=== PATIENT | male | born 1940 | race Caucasian/White ===

== ENCOUNTER 2017-03-01 12:37 | Emergency (ER) | payer BC, OTHER ==
[~2017-03-01] VITALS: Ht 198.1 cm; Wt 140.0 kg
[2017-03-01 12:45] VITALS: TEMP 36.3; Ht 198.1 cm; Wt 140.0 kg
--- NOTE | 2017-03-01 14:21 | EMERGENCY ROOM VISIT NOTE ---
History Report prepared by Dana: Chiquita Sy Under the Supervision of: Dr. Denisse Fox D.O. First contact with patient: 13:39 Chief Complaint: EDEMA TO EXTREMITY Stated Complaint: SWELLING IN FEET,CHEST PAIN,COUGH History of Present Illness The patient is a 76 year old male who presents to the Emergency Room with complaints of intermittent chest pain beginning a couple days ago. The patient states that his chest pain is relieved with belching. He also reports swelling to both his legs beginning about four days ago. The patient is on a water pill and started taking two pills a day two days ago with no relief. He denies any other recent changes to his medications. The patient is unsure of why he has swelling in his legs. He denies any heart or kidney problems. He notes a cough and shortness of breath when he lays flat. The patient also reports joint pain. The patient has a history of gout. His reports his joint pain feels similarly to when he had gout. He is a former smoker and quit about 20 years ago. Pt denies headache, change in vision, fevers, nausea, vomiting, diarrhea, pain with urination, and melena. Source of History: patient Onset: a couple days ago Position: chest Timing: constant Modifying Factors (Relieving): other (belching) Associated Symptoms: + cough, + SOB, No fevers, No headache, No chest pain, No nausea, No vomiting Review of Systems See HPI for pertinent positives & negatives. A total of 10 systems reviewed and were otherwise negative. Past Medical & Surgical Medical Problems: (1) Gout Family History Patient reports no known family medical history. Social History Smoking Status: Former Smoker Marital Status: Housing Status: lives with significant other Current/Historical Medications Scheduled Cholecalciferol (Vitamin D), 1,000 UNITS PO DAILY Cyanocobalamin (Vitamin B-12), 1,000 MCG PO DAILY Furosemide (Lasix), 20 MG PO DAILY Ibuprofen (Motrin), 800 MG PO DAILY Levothyroxine Sodium (Synthroid), 150 MCG PO DAILY Lisinopril (Zestril), 40 MG PO DAILY Potassium Chloride (Micro-K Ext Rel), 10 MEQ PO DAILY Prednisone (Prednisone Tab), 2 TAB PO DAILY Simvastatin (Zocor), 20 MG PO DAILY Allergies Coded Allergies: No Known Allergies (Unverified , 03/01/17) Physical Exam Vital Signs Date Time Temp Pulse Resp B/P (MAP) Pulse Ox O2 Delivery O2 Flow Rate FiO2 03/01/17 18:54 78 18 180/78 95 Room Air 03/01/17 14:22 78 16 176/100 93 03/01/17 14:07 82 19 94 03/01/17 13:52 78 27 95 03/01/17 13:47 81 03/01/17 13:40 178/105 03/01/17 12:45 36.3 116 14 163/102 98 Room Air Physical Exam GENERAL: alert, well appearing, well nourished, no distress, non-toxic EYE EXAM: normal conjunctiva, PERRL and EOM's grossly intact OROPHARYNX: no exudate, no erythema, lips, buccal mucosa, and tongue normal and mucous membranes are moist NECK: supple, no nuchal rigidity, no adenopathy, non-tender LUNGS: Diminished breath sounds bilaterally, no wheezing, no rhonchi, no rales. HEART: no murmurs, S1 normal and S2 normal ABDOMEN: abdomen soft, non-tender, normo-active bowel sounds, no masses, no rebound or guarding. BACK: Back is symmetrical on inspection and there is no deformity, no midline tenderness, no CVA tenderness. SKIN: no rashes and no bruising UPPER EXTREMITIES: upper extremities are grossly normal. LOWER EXTREMITIES: 2 + edema NEURO EXAM: Normal sensorium, cranial nerves II-XII grossly intact, normal speech, no gross weakness of arms, no gross weakness of legs. Medical Decision & Procedures ER Provider Diagnostic Interpretation: Radiology results have been interpreted by the radiologist and reviewed by me. CHEST 2 VIEWS ROUTINE FINDINGS: Minimal bibasilar atelectatic change. Heart top limits of normal in size. Lungs otherwise are clear. Diaphragms smooth. IMPRESSION: Minimal bibasilar atelectasis. Otherwise negative study. The above report was generated using voice recognition software. It may contain grammatical, syntax or spelling errors. Electronically signed by: Heber Pina M.D. (CHEST FOR PE) ANGIO WITH FINDINGS: Quality Control Systems Manager topogram: Low lung volumes. Pulmonary vasculature: The study is suboptimal secondary to the timing of the contrast bolus, patient body habitus, and respiratory motion artifact limiting evaluation of subsegmental pulmonary arteries. Allowing for this, no filling defect to suggest pulmonary embolus in the main, lobar, or segmental pulmonary arteries. Main pulmonary artery is top normal in size. No flattening of the interventricular septum. No intracardiac intracardiac filling defect. No reflux of contrast into the hepatic veins. Remaining chest: On soft tissue windows, thyroid not visualized. No axillary, supraclavicular, hilar, or mediastinal lymphadenopathy. Atherosclerosis of the aorta. Left atrial enlargement suggested. Aortic valve and coronary artery calcification. No pericardial or pleural effusion. Focal indeterminate 2.3 cm hypodensity noted in the liver (series 4 image 1) additional 1.2 cm hypodensity noted in segment 7 of the liver (series 4 image 32). On lung windows, the lung bases were incompletely included within the [id number]. Allowing for this, minimal dependent changes likely atelectasis. Volume loss and consolidation in the right middle lobe and lingula, consistent with extensive atelectasis. No other focal infiltrate or nodule. Central airways patent. On bone windows, degenerative changes of the thoracic spine. Sclerotic lesion in one of the lower thoracic vertebral bodies possibly a bone island. IMPRESSION: 1. Allowing for suboptimal image quality, no evidence of pulmonary embolus. No acute intrathoracic pathology. 2. Two indeterminate liver lesions. If there is a history of malignancy, underlying hepatocellular risk factors, or clinical concern, further evaluation with dedicated liver CT or MR (Gadavist) could be obtained. Electronically signed by: Marc Watt M.D. VENOUS DOPPLER LWR EXT BILA FINDINGS: Right: Common femoral vein: Patent. Greater saphenous vein: Patent. Deep femoral vein: Patent. Femoral vein: Patent. Popliteal vein: Patent. Calf veins: Patent. Left: Common femoral vein: Patent. Greater saphenous vein: Patent. Deep femoral vein: Patent. Femoral vein: Patent. Popliteal vein: Patent. Calf veins: Patent. Other: None. IMPRESSION: No evidence of deep venous thrombosis. Electronically signed by: Marc Watt M.D. Laboratory Results 03/01/17 14:00 Red Blood Count 4.61, Mean Corpuscular Volume 88.9, Mean Corpuscular Hemoglobin 30.4, Mean Corpuscular Hemoglobin Concent 34.1, Mean Platelet Volume 9.0, Neutrophils (%) (Auto) 74.7, Lymphocytes (%) (Auto) 13.4, Monocytes (%) (Auto) 10.5, Eosinophils (%) (Auto) 0.9, Basophils (%) (Auto) 0.3, Neutrophils # (Auto ) 7.87, Lymphocytes # (Auto) 1.41, Monocytes # (Auto) 1.11, Eosinophils # (Auto ) 0.09, Basophils # (Auto) 0.03 03/01/17 14:00 Test 03/01/17 14:00 03/01/17 15:17 03/01/17 16:25 White Blood Count 10.53 K/uL (4.8-10.8) Red Blood Count 4.61 M/uL (4.7-6.1) Hemoglobin 14.0 g/dL (14.0-18.0) Hematocrit 41.0 % (42-52) Mean Corpuscular Volume 88.9 fL (80-100) Mean Corpuscular Hemoglobin 30.4 pg (25-34) Mean Corpuscular Hemoglobin Concent 34.1 g/dl (32-36) Platelet Count 365 K/uL (130-400) Mean Platelet Volume 9.0 fL (7.4-10.4) Neutrophils (%) (Auto) 74.7 % Lymphocytes (%) (Auto) 13.4 % Monocytes (%) (Auto) 10.5 % Eosinophils (%) (Auto) 0.9 % Basophils (%) (Auto) 0.3 % Neutrophils # (Auto) 7.87 K/uL (1.4-6.5) Lymphocytes # (Auto) 1.41 K/uL (1.2-3.4) Monocytes # (Auto) 1.11 K/uL (0.11-0.59) Eosinophils # (Auto) 0.09 K/uL (0-0.5) Basophils # (Auto) 0.03 K/uL (0-0.2) RDW Standard Deviation 43.7 fL (36.4-46.3) RDW Coefficient of Variation 13.3 % (11.5-14.5) Immature Granulocyte % (Auto) 0.2 % Immature Granulocyte # (Auto) 0.02 K/uL (0.00-0.02) Anion Gap 4.0 mmol/L (3-11) Est Creatinine Clear Calc Drug Dose 96.6 ml/min Estimated GFR () 82.4 Estimated GFR (Non- 71.1 BUN/Creatinine Ratio 20.5 (10-20) Calcium Level 9.2 mg/dl (8.5-10.1) Total Bilirubin 0.4 mg/dl (0.2-1) Aspartate Amino Transf (AST/SGOT) 18 U/L (15-37) Alanine Aminotransferase (ALT/SGPT) 26 U/L (12-78) Alkaline Phosphatase 86 U/L (45-117) Troponin I < 0.015 ng/ml (0-0.045) Pro-B-Type Natriuretic Peptide 232 pg/ml (0-1800) Total Protein 7.4 gm/dl (6.4-8.2) Albumin 3.3 gm/dl (3.4-5.0) Globulin 4.1 gm/dl (2.5-4.0) Albumin/Globulin Ratio 0.8 (0.9-2) Prothrombin Time 10.6 SECONDS (9.0-12.0) Prothromb Time International Ratio 1.0 (0.9-1.1) D-Dimer 1430 ug/L FEU (0-500) Uric Acid 9.0 mg/dl (2.6-7.2) Urine Color YELLOW Urine Appearance CLEAR (CLEAR) Urine pH 5.0 (4.5-7.5) Urine Specific [place] 1.015 (1.000-1.030) Urine Protein NEG (NEG) Urine Glucose (UA) NEG (NEG) Urine Ketones NEG (NEG) Urine Occult Blood NEG (NEG) Urine Nitrite NEG (NEG) Urine Bilirubin NEG (NEG) Urine Urobilinogen NEG (NEG) Urine Leukocyte Esterase TRACE (NEG) Urine WBC (Auto) 1-5 /hpf (0-5) Urine RBC (Auto) 0-4 /hpf (0-4) Urine Hyaline Casts (Auto) 1-5 /lpf (0-5) Urine Epithelial Cells (Auto) 0-5 /lpf (0-5) Urine Bacteria (Auto) NEG (NEG) Laboratory results per my review. Medications Administered Medications (Trade) Dose Ordered Sig/Jair Route Start Time Stop Time Status Last Admin Dose Admin Naproxen (Naprosyn Tab) 250 mg NOW STAT PO 03/01/17 15:55 03/01/17 15:56 DC 03/01/17 17:55 250 MG Albuterol (Ventolin Hfa Inhaler) 2 puffs NOW ONCE INH 03/01/17 17:45 03/01/17 17:46 DC 03/01/17 17:55 2 PUFFS Benzonatate (Tessalon Perles Cap) 100 mg NOW ONCE PO 03/01/17 17:45 03/01/17 17:46 DC 03/01/17 17:55 100 MG Colchicine (Colchicine Tab) 0.6 mg NOW ONCE PO 03/01/17 18:30 03/01/17 18:31 DC 03/01/17 18:48 0.6 MG ECG Indication: other (edema) Rate (beats per minute): 76 Rhythm: sinus rhythm Findings: 1st degree AV block, no acute ischemic change, no ectopy, other ( normal axis, normal QRS, normal QTC) ED Course 1404: The patient was evaluated in room A9B. A complete history and physical exam was performed. 1555: Ordered Naproxen 250 mg PO. 1744: Ordered Benzonatate 100 mg PO, Albuterol 2 puffs INH. 1808: I updated the patient on his test results. Diet diet, admits to eating chips and soup. Discussed activity. 1829: Ordered Colchicine Tab 0.6 mg PO. 1899: Ordered Colchicine 1.2 mg PO. 1906: Upon reevaluation, the patient is feeling better. I discussed the findings and the treatment plan with the patient. He verbalizes agreement and understanding. The patient was discharged home. Medical Decision Differential diagnosis: Etiologies such as DVT, musculoskeletal, infection, joint effusion, trauma, lymphedema, idiopathic, CHF, as well as others were entertained.. No evidence of DVT/PE, renal failure, or congestive heart failure. Given pt's body habitus and medical problems, likely component of lymphedema and some chronic leg swelling. Discussed with pt elevation of legs and compression stockings. Discussed close f/u with pcp and discussion of his recent increased self dosing of his lasix. No evidence for effusion/pneumonia, doubt acs, to explain chest pain and slight SOB. Possible related to evolving URI, COPD, or body habitus and decreased exercise tolerance. Pt admits to salt in diet, discussed avoidance of this and avoidance of preserved/processed foods which could be contributing. Discussed sx to watch/return for, he verbalized understanding. Colchicine started at slower longer dosing to avoid severe diarrhea and given pt's age and use of diuretic/NSAID/BOGDAN already, steroid chosen to help with inflammation from gout to avoid precipitating any renal failure. Medication Reconcilliation Current Medication List: was personally reviewed by me Blood Pressure Screening Patient's blood pressure: Elevated blood pressure Blood pressure disposition: Referred to PCP Impression Primary Impression: Lower extremity edema Additional Impressions: Gout Dyspnea Scribe Attestation The scribe's documentation has been prepared under my direction and personally reviewed by me in its entirety. I confirm that the note above accurately reflects all work, treatment, procedures, and medical decision making performed by me. Departure Information Dispostion Home / Self-Care Prescriptions Prednisone (Prednisone Tab) 20 Mg Tab 2 TAB PO DAILY for 5 Days, TAB Prov: Denisse Fox, DO 03/01/17 Referrals No Doctor, Assigned (PCP) Forms HOME CARE DOCUMENTATION FORM, IMPORTANT VISIT INFORMATION, WORK / SCHOOL INSTRUCTIONS Patient Instructions My [facility] Additional Instructions Please: Follow up with her family doctor regarding the swelling in her lower extremities as well as her occasional shortness of breath. Please have them recheck your gout also. Please take the colchicine pill every 8 hours 2. Please use the steroids over the next 5 days. This will help with inflammation. Please continue your other regular medications as prescribed. Please stop with her family doctor about your recent self dosing of your water pill. Please avoid additional salt in your diet including canned foods, soups, deli meats. If you have any worsening trouble breathing or chest pain, develop fevers, numbness or tingling, or unable to walk, develop vomiting, you've any other new concerns please return the emergency room. Please elevate your legs when at rest. Please consider wearing compression stockings. The colchicine tablet may give you looser stools or diarrhea. Problem Qualifiers Additional Impressions: Gout Gout site: foot Gout etiology: unspecified cause Chronicity: acute Laterality: left Qualified Codes: M10.9 - Gout, unspecified Dyspnea Dyspnea type: dyspnea on exertion Qualified Codes: R06.09 - Other forms of dyspnea
[2017-03-01 14:27] LABS: BASO % 0.3 %; BASO ABS # 0.03 K/uL (0-0.2); COMPLETE YES; EOS % 0.9 %; IG% 0.2 %; LYMPH % 13.4 %; LYMPH ABS # 1.41 K/uL (1.2-3.4); MEAN CELL VOLUME 88.9 fL (80-100); MEAN CORPUSCULAR HEMOGLOBIN 30.4 pg (25-34); MEAN CORPUSCULAR HGB CONC 34.1 g/dl (32-36); MONO % 10.5 %; NEUT % 74.7 %; PLATELET COUNT 365 K/uL (130-400); RED BLOOD COUNT 4.61 M/uL (4.7-6.1); WHITE BLOOD COUNT 10.53 K/uL (4.8-10.8)
--- NOTE | 2017-03-01 14:35 | DIAGNOSTIC IMAGING REPORT ---
CHEST 2 VIEWS ROUTINE CLINICAL HISTORY: sob, cough dyspnea COMPARISON STUDY: No previous studies for comparison. FINDINGS: Minimal bibasilar atelectatic change. Heart top limits of normal in size. Lungs otherwise are clear. Diaphragms smooth. IMPRESSION: Minimal bibasilar atelectasis. Otherwise negative study. The above report was generated using voice recognition software. It may contain grammatical, syntax or spelling errors. Electronically signed by: Heber Pina M.D. 03/01/2017 2:34 PM Dictated Date/Time: 03/01/2017 2:34 PM
[2017-03-01 14:38] LABS: ALT/SGPT 26 U/L (12-78); AST/SGOT 18 U/L (15-37); BLOOD UREA NITROGEN 21 mg/dl (7-18); BUN/CREATININE RATIO 20.5 (10-20); CALCIUM 9.2 mg/dl (8.5-10.1); CARBON DIOXIDE 31 mmol/L (21-32); CHLORIDE 104 mmol/L (98-107); CREATININE 1.02 mg/dl (0.60-1.40); GLUCOSE 105 mg/dl (70-99); POTASSIUM 3.8 mmol/L (3.5-5.1); SODIUM 139 mmol/L (136-145)
[2017-03-01 14:43] LABS: ALB/GLOB RATIO 0.8 (0.9-2); ALKALINE PHOSPHATASE 86 U/L (45-117)
[2017-03-01] MEDS ORDERED: CYAN10005 PO (14:52)
[2017-03-01] MEDS ORDERED: LEVO150T PO (14:52)
[2017-03-01] MEDS ORDERED: FURO-85 PO (14:52)
[2017-03-01] MEDS ORDERED: POTA10CA28 PO (14:52)
[2017-03-01] MEDS ORDERED: SIMV20TA2 PO (14:52)
[2017-03-01] MEDS ORDERED: LISI40TA PO (14:52)
[2017-03-01] MEDS ORDERED: IBUP-1428 PO (14:52)
[2017-03-01] MEDS ORDERED: CHOL100010 PO (14:52)
[2017-03-01 15:41] LABS: PROTHROMBIN TIME (PATIENT) 10.6 SECONDS (9.0-12.0)
[2017-03-01] MEDS ORDERED: NAPROXEN 250 MG TAB PO STA (15:55)
[2017-03-01] MEDS ORDERED: OPTIRAY 320 IV PRN (16:00)
--- NOTE | 2017-03-01 16:59 | DIAGNOSTIC IMAGING REPORT ---
(CHEST FOR PE) ANGIO WITH CLINICAL HISTORY: 76 years-old Male presenting with ^cp, sob, elevated dimer. TECHNIQUE: Multidetector CT angiography of the chest was performed after administration of intravenous contrast. 3-D volumetric and/or maximum intensity projection (MIP) images were subsequently reconstructed for review. IV contrast: 89 mL of Optiray 320. A dose lowering technique was used consistent with the principles of ALARA (as low as reasonably achievable). COMPARISON: Chest x-ray performed earlier the same day. CT DOSE (mGy.cm): The estimated cumulative dose is 554.10 mGy.cm. FINDINGS: Jackhammer Splitter Operator topogram: Low lung volumes. Pulmonary vasculature: The study is suboptimal secondary to the timing of the contrast bolus, patient body habitus, and respiratory motion artifact limiting evaluation of subsegmental pulmonary arteries. Allowing for this, no filling defect to suggest pulmonary embolus in the main, lobar, or segmental pulmonary arteries. Main pulmonary artery is top normal in size. No flattening of the interventricular septum. No intracardiac intracardiac filling defect. No reflux of contrast into the hepatic veins. Remaining chest: On soft tissue windows, thyroid not visualized. No axillary, supraclavicular, hilar, or mediastinal lymphadenopathy. Atherosclerosis of the aorta. Left atrial enlargement suggested. Aortic valve and coronary artery calcification. No pericardial or pleural effusion. Focal indeterminate 2.3 cm hypodensity noted in the liver (series 4 image 1) additional 1.2 cm hypodensity noted in segment 7 of the liver (series 4 image 32). On lung windows, the lung bases were incompletely included within the [id number]. Allowing for this, minimal dependent changes likely atelectasis. Volume loss and consolidation in the right middle lobe and lingula, consistent with extensive atelectasis. No other focal infiltrate or nodule. Central airways patent. On bone windows, degenerative changes of the thoracic spine. Sclerotic lesion in one of the lower thoracic vertebral bodies possibly a bone island. IMPRESSION: 1. Allowing for suboptimal image quality, no evidence of pulmonary embolus. No acute intrathoracic pathology. 2. Two indeterminate liver lesions. If there is a history of malignancy, underlying hepatocellular risk factors, or clinical concern, further evaluation with dedicated liver CT or MR (Gadavist) could be obtained. Electronically signed by: Marc Watt M.D. 03/01/2017 4:58 PM Dictated Date/Time: 03/01/2017 4:50 PM
[2017-03-01 17:24] LABS: URINE APPEARANCE CLEAR (CLEAR); URINE BILIRUBIN NEG (NEG); URINE COLOR YELLOW; URINE EPITHELIAL CELL AUTO 0-5 /lpf (0-5); URINE NITRITE NEG (NEG); URINE SPECIFIC GRAVITY 1.015 (1.000-1.030); UROBILINOGEN NEG (NEG); ZZUR CULT IF INDIC CLEAN CATCH NO
[2017-03-01 17:30] LABS: MANUAL MICROSCOPIC REQUIRED? NO; REVIEW REQ? NO
[2017-03-01] MEDS ORDERED: BENZONATATE 100MG CAP PO ONE (17:45)
[2017-03-01] MEDS ORDERED: ALBUTEROL HFA 8 GM INHALER INH ONE (17:45)
--- NOTE | 2017-03-01 17:48 | DIAGNOSTIC IMAGING REPORT ---
VENOUS DOPPLER LWR EXT BILA CLINICAL HISTORY: 76 years-old Male presenting with le edema, elevated dimer. TECHNIQUE: Real-time grayscale and color and spectral Doppler ultrasound imaging of the veins of the bilateral lower extremities was performed. Compression and augmentation were also utilized. COMPARISON: None. FINDINGS: Right: Common femoral vein: Patent. Greater saphenous vein: Patent. Deep femoral vein: Patent. Femoral vein: Patent. Popliteal vein: Patent. Calf veins: Patent. Left: Common femoral vein: Patent. Greater saphenous vein: Patent. Deep femoral vein: Patent. Femoral vein: Patent. Popliteal vein: Patent. Calf veins: Patent. Other: None. IMPRESSION: No evidence of deep venous thrombosis. Electronically signed by: Marc Watt M.D. 03/01/2017 5:47 PM Dictated Date/Time: 03/01/2017 5:46 PM
[2017-03-01] MEDS ORDERED: COLCHICINE 0.6 MG TAB PO ONE ×2 (18:30→19:00)
[2017-03-01 18:54] VITALS: BP 180/78; PULSE 78; O2SAT 95
[2017-03-01] MEDS ORDERED: PRED20TA2 PO (19:02)
== END 2017-03-01 19:37 | disposition home or self-care (01) ==
LOC: C.EDB 12:40 → C.EDA 19:37
DX: M79.89 Other specified soft tissue disorders (principal); M10.9 Gout, unspecified; R06.09 Other forms of dyspnea; I44.0 Atrioventricular block, first degree; R07.9 Chest pain, unspecified; R05 Cough; Z79.899 Other long term (current) drug therapy; Z87.891 Personal history of nicotine dependence; Z87.898 Personal history of other specified conditions

== ENCOUNTER 2018-06-07 14:23 | Inpatient (IN) ==
[2018-06-07 16:39] LABS: Basophils # (auto) 0.02 K/uL (0-0.2); Basophils % (auto) 0.2 %; Eosinophils # (auto) 0.07 K/uL (0-0.5); Eosinophils % (auto) 0.6 %; Hematocrit (blood only) 36.4 % (42-52); Hemoglobin 12.2 g/dL (14.0-18.0); Immature Granulocytes # (auto) 0.04 K/uL (0.00-0.02); Immature Granulocytes % (auto) 0.4 %; Lymphocytes # (auto) 0.89 K/uL (1.2-3.4); Lymphocytes % (auto) 8.2 %; Mean Corpuscular Hgb Conc 33.5 g/dL (32-36); Mean Corpuscular Volume 88.8 fL (80-100); Mean Platelet Volume 8.9 fL (7.4-10.4); Monocytes # (auto) 1.35 K/uL (0.11-0.59); Monocytes % (auto) 12.5 %; Neutrophils # (auto) 8.47 K/uL (1.4-6.5); Neutrophils % (auto) 78.1 %; Platelet Count 387 K/uL (130-400); RDW Coefficient of Variation 13.6 % (11.5-14.5); RDW Standard Deviation 44.1 fL (36.4-46.3); White Blood Count 10.84 K/uL (4.8-10.8)
[2018-06-07 16:57] LABS: BUN Creatinine Ratio 30.7 (10-20); Calcium 9.1 mg/dl (8.5-10.1); Creatinine Clr Calc Pharmacy 69.4 ml/min; Est GFR (African American) 57.8; Est GFR (Non-African American) 49.8; Potassium 3.8 mmol/L (3.5-5.1)
[2018-06-07] MEDS ORDERED: VANCOMYCIN CONSULT ACTIVE PRN ×3 (17:29→19:37)
[2018-06-07] MEDS ORDERED: VANCOMYCIN HCL 1,000 MG/270 ML BAG IV STA (17:29)
[2018-06-07 18:55] LABS: INR 1.1 (0.9-1.1); Partial Thromboplastin Ratio 1.2; Partial Thromboplastin Time 32.8 Seconds (21.0-31.0); Prothrombin Time 11.3 Seconds (9.0-12.0)
--- NOTE | 2018-06-07 19:25 | History & Physical Report ---
Date of Service June 07, 2018 Assessment & Plan (1) Cellulitis of both lower extremities: -Vancomycin given in the ED -awaiting results of the admission blood cultures -continue antibiotics as both vancomycin and Zosyn for now -monitor vancomycin level and renal function -patient recently on Lasix for lower extremity edema with the erythema, denies history of CHF, hold off Lasix for now while monitoring for clinical improvements on IV antibiotics, will re-assess if Lasix is needed Hypertension -continue home dose lisinopril 40 mg daily -monitor renal function Hypothyroidism -continue daily levothyroxine other cardiovascular continue home dose simvastatin Full Code Status [phone] History of Present Illness Primary Care Provider: John Juanachu This is a patient with bilateral lower extremity erythema and being treated for cellulitis as outpatient. Patient's condition has not improved with antibiotics and admitted to medical service for IV antibiotics. Patient reports in recent weeks he was prescribed Lasix to help with leg swelling with the leg erythema. Patient denies personal history of heart failure. Denies history of stroke. He denies acute trauma to the leg. He ambulates with cane at home. reports that the last time that his legs were in normal condition was several weeks ago On review of systems, he does not report recent fever, denies chest pain, denies shortness of breath, denies lightheadedness, denies abdominal pain, denies problems with urination or bowel movements Family History: patient denies family history of health problems Allergies: Patient denies allergy history Allergies Allergy/AdvReac Type Severity Reaction Status Date / Time No Known Allergies Allergy Verified 06/07/18 17:05 Home Medications Home Medications Medication Instructions Recorded Confirmed Type Saccharomyces boulardii [Florastor] 250 mg PO BID #20 cap 06/02/18 06/07/18 Rx cephalexin 500 mg PO QID 10 Days #40 cap 06/02/18 06/07/18 Rx cholecalciferol (vitamin D3) 1,000 units PO QPM 06/02/18 06/07/18 History [Vitamin D3] cyanocobalamin (vitamin B-12) 1,000 mcg PO QPM 06/02/18 06/07/18 History [Vitamin B-12] doxycycline hyclate 100 mg PO BID 10 Days #20 tab 06/02/18 06/07/18 Rx furosemide 40 mg PO BID 06/02/18 06/07/18 History ibuprofen 800 mg PO TID PRN 06/02/18 06/07/18 History levothyroxine 150 mcg PO [id number] 06/02/18 06/07/18 History lisinopril 40 mg PO QPM 06/02/18 06/07/18 History potassium chloride 10 meq PO QPM 06/02/18 06/07/18 History simvastatin 20 mg PO QPM 06/02/18 06/07/18 History levothyroxine 225 mcg PO [id number] 06/07/18 06/07/18 History Past Med/Surg History Social History Preferred Language: American marital status: Current Living Situation: Spouse current occupational status: retired Feels Safe at Home: Yes Smoking Status: Never smoker Review of Systems All systems reviewed & are unremarkable except as noted in HPI & below Physical Exam Vital Signs (Past 24 Hours): Last Vital Signs Temp 36.3 C L 06/07/18 14:56 Pulse 81 06/07/18 18:41 Resp 20 06/07/18 18:41 BP 164/91 H 06/07/18 18:41 Pulse Ox 92 06/07/18 18:41 Constitutional: WD/WN, vitals as above Eyes: PERRL, conjunctivae normal, anicteric sclerae ENMT: external ear and nose normal, oropharynx normal Ears: + hearing impairment Neck: trachea midline, no thyromegaly normal visual inspection Respiratory: normal respiratory effort, lungs clear to auscultation Cardiovascular: RRR, no murmur, no edema Gastrointestinal (Abdomen): normal bowel sounds, soft, nontender, no hepatosplenomegaly Skin: bilateral lower extremity erythema below the knees, minor abrasions on the legs, has pedal edema Neurologic: PERRL, EOMI, accommodation nl, no face palsy, no dysarthria CN's II-XI intact bilaterally Psychiatric: A+Ox3, euthymic affect
[2018-06-07] MEDS ORDERED: PIPERACILL/TAZOBAC CONSULT ACTIVE PRN (19:36)
[2018-06-07] MEDS ORDERED: PIPERACILLIN/TAZOBACTAM 3.375 GM in DEXTROSE 5% 100 ML IV SCH (19:45)
[2018-06-07] MEDS ORDERED: PIPERACILLIN/TAZOBACTAM 3.375 GM in DEXTROSE 5% 100 ML IV ONE (20:00)
[2018-06-07] MEDS ORDERED: PIPERACILLIN/TAZOBACTAM 4.5 GM in DEXTROSE 5% 100 ML IV SCH (20:00)
--- NOTE | 2018-06-07 20:12 | Emergency Department Note ---
Entered by Shaila Pfeiffer acting as a scribe for Yazan Finn History of Present Illness General Chief complaint: Skin Problem Stated complaint: CELLULITIS Time Seen by Provider: 06/07/18 15:26 Source: patient Limitations: no limitations History of Present Illness Provider complaint: cellulitis Onset (ago): week(s) 1 Location: lower extremity, left and right Associated symptoms: + fever/chills (chills no fevers ) Treatments prior to arrival: none The patient is a 77 year old male who presents to the Emergency Room with complaints of bilateral lower extremity redness and swelling. The patient is c urrently on treatment of his cellulitis on his bilateral lower extremities with Keflex and doxycycline. The patient states that he has chills but denies any fevers. There is been increased drainage from his legs soaking through gauze, due to that the patient has been wrapping rags of all T-shirts around his lower extremities. The patient's and daughter state they think that the cellulitis is getting worse. They state that they had a nurse evaluate the patient and was instructed by the nurse to bring the patient to the hospital for IV antibiotics and admission. Home Medications Home Medications Medication Instructions Recorded Confirmed Type Saccharomyces boulardii [Florastor] 250 mg PO BID #20 cap 06/02/18 06/07/18 Rx cephalexin 500 mg PO QID 10 Days #40 cap 06/02/18 06/07/18 Rx cholecalciferol (vitamin D3) 1,000 units PO QPM 06/02/18 06/07/18 History [Vitamin D3] cyanocobalamin (vitamin B-12) 1,000 mcg PO QPM 06/02/18 06/07/18 History [Vitamin B-12] doxycycline hyclate 100 mg PO BID 10 Days #20 tab 06/02/18 06/07/18 Rx furosemide 40 mg PO BID 06/02/18 06/07/18 History ibuprofen 800 mg PO TID PRN 06/02/18 06/07/18 History levothyroxine 150 mcg PO 3XWK 06/02/18 06/07/18 History lisinopril 40 mg PO QPM 06/02/18 06/07/18 History potassium chloride 10 meq PO QPM 06/02/18 06/07/18 History simvastatin 20 mg PO QPM 06/02/18 06/07/18 History levothyroxine 225 mcg PO [id number] 06/07/18 06/07/18 History Allergies Allergy/AdvReac Type Severity Reaction Status Date / Time No Known Allergies Allergy Verified 06/07/18 17:05 Past Med/Surg History Medical History Gout (Resolved) Cellulitis No significant family history No significant past surgical history Social History Preferred Language: Kyrgyz marital status: Current Living Situation: Spouse current occupational status: retired Feels Safe at Home: Yes Smoking Status: Never smoker Review of Systems See HPI for pertinent positives & negatives. and A total of 10 systems reviewed and were otherwise negative See HPI for pertinent positives & negatives. A total of 10 systems reviewed and were otherwise negative. Physical Exam Vital Signs Vital Signs - 24 hr 06/07/18 14:56 06/07/18 17:30 06/07/18 18:41 Temperature 36.3 C L Temperature Source Oral Sepsis Recent Fever Within 48 Hours No Sepsis Action Taken by Nursing No Action Required Pulse Rate 83 81 Pulse Rate [Right Finger] 90 Respiratory Rate 16 20 20 Blood Pressure 135/77 164/91 H Blood Pressure [Right Arm] 148/87 H Blood Pressure Mean 96 Blood Pressure Mean [Right Arm] 107 Pulse Oximetry 94 92 92 Oxygen Delivery Method Room Air Room Air Room Air GENERAL: He is oriented to person, place, and time. He appears well-developed and well-nourished. He does not appear distressed. HENT: Exam performed. - Head: Normocephalic and atraumatic. - Right Ear: External ear normal. No mastoid tenderness. - Left Ear: External ear normal. No mastoid tenderness. - Mouth/Throat: The oropharynx is clear and moist. No trismus in the jaw. No dental abscesses or uvula swelling. No oropharyngeal exudate or tonsillar ab scesses. EYES: Conjunctivae and EOM are normal. Pupils are equal, round, and reactive to light. Right eye exhibits no discharge. Left eye exhibits no discharge. No scleral icterus. NECK: Normal range of motion. Neck supple. No JVD present. No spinous process tenderness present. No carotid bruit present. No rigidity. No tracheal deviation and normal range of motion present. No Brudzinski's sign and no Kernig's sign noted. CV: Normal rate, regular rhythm, normal heart sounds and intact distal pulses. There is no peripheral edema. Palpable radial pulses bue. PULM/CHEST: Effort normal and breath sounds normal. No respiratory distress. No stridor. He has no wheezes. He has no rales. - Chest Wall: He exhibits no tenderness. ABD: The abdomen is soft. Bowel sounds are normal. He has no distension. No mass is present. There is no tenderness. There is no rebound, no guarding, no Rodriguez 's sign and no tenderness at McBurney's point. Rovsig negative. MUSC/SKEL: Normal range of motion. LYMPH: No cervical adenopathy. NEURO: He is alert and oriented to person, place, and time. He has normal strength. No cranial nerve deficit or sensory deficit. Coordination and gait normal. GCS eye subscore is 4. GCS verbal subscore is 5. GCS motor subscore is 6. Cerebellar tests wnl. SKIN: Swollen erythematous, warm to touch, seeping wounds over the bilateral lower extremities. Nikolsky's sign negative. PSYCH: He has a normal mood and affect. Behavior is normal. Judgment and thought content normal. Course 1528: Past medical records reviewed. The patient was evaluated in room C1A, and a complete history and physical examination were performed. The patient was seen in the ED on June 02 and diagnosed with cellulitis. The patient wad a white count of 12.2, negative US bilateral extremities, and was discharged with Keflex and doxycycline. 1720: Vital signs stable. Leukocytosis is improving compared to previous ED visit on June 02, however clinically the cellulitis is worsening given the seeping wounds through the rags were applied. Patient will be admitted for cellulitis failed outpatient treatment to the hospitalist service and treated with vancomycin 1 g IV piggyback. I discussed the patient's case with Dr. Tavo Monsalve- Internal Medicine who will evaluate the patient for further hospitalization. Consultations Consultation #1: Dr. Tavo Monsalve- Internal Medicine Time: 17:20 Administered Medications Discontinued Medications Vancomycin HCl (Vancomycin Hcl) 1,000 mg in 270 mls @ 125 mls/hr IV NOW STA Stop: 06/07/18 19:38 Last Admin: 06/07/18 17:36 Dose: 125 mls/hr Documented by: [id number] Medical Decision Making Medical Records Attestation: I reviewed the patient's medical records. Home Medications Current Medication List: was personally reviewed by me Laboratory Data Attestation: I reviewed the patient's lab results. Result diagrams: 06/07/18 16:13 06/07/18 16:30 Lab Results 06/07/18 06/07/18 06/07/18 Range/Units 16:13 16:14 16:30 WBC 10.84 H (4.8-10.8) K/uL RBC 4.10 L (4.7-6.1) M/uL Hgb 12.2 L (14.0-18.0) g/dL Hct 36.4 L (42-52) % MCV 88.8 (80-100) fL MCH 29.8 (25-34) pg MCHC 33.5 (32-36) g/dL RDW Std Deviation 44.1 (36.4-46.3) fL RDW Coeff of Maximilian 13.6 (11.5-14.5) % Plt Count 387 (130-400) K/uL MPV 8.9 (7.4-10.4) fL Immature Gran % (Auto) 0.4 % Neut % (Auto) 78.1 % Lymph % (Auto) 8.2 % [place]owndes % (Auto) 12.5 % Eos % (Auto) 0.6 % Baso % (Auto) 0.2 % Immature Gran # (Auto) 0.04 H (0.00-0.02) K/uL Neut # (Auto) 8.47 H (1.4-6.5) K/uL Lymph # (Auto) 0.89 L (1.2-3.4) K/uL [place]own[place] # (Auto) 1.35 H (0.11-0.59) K/uL Eos # (Auto) 0.07 (0-0.5) K/uL Baso # (Auto) 0.02 (0-0.2) K/uL PT 11.3 (9.0-12.0) Seconds INR 1.1 (0.9-1.1) APTT 32.8 H (21.0-31.0) Seconds PTT Ratio 1.2 Sodium 141 (136-145) mmol/L Potassium 3.8 (3.5-5.1) mmol/L Chloride 104 (98-107) mmol/L Carbon Dioxide 32 (21-32) mmol/L Anion Gap 5.0 (3-11) BUN 42 H (7-18) mg/dl Creatinine 1.36 (0.6-1.4) mg/dl Est Cr Clr Drug Dosing 69.4 ml/min Est GFR ( Amer) 57.8 Est GFR (Non-Af Amer) 49.8 BUN/Creatinine Ratio 30.7 H (10-20) Glucose 101 H (70-99) mg/dl Lactate (0.4-2.0) mmol/L Calcium 9.1 (8.5-10.1) mg/dl 06/07/18 Range/Units 16:30 WBC (4.8-10.8) K/uL RBC (4.7-6.1) M/uL Hgb (14.0-18.0) g/dL Hct (42-52) % MCV (80-100) fL MCH (25-34) pg MCHC (32-36) g/dL RDW Std Deviation (36.4-46.3) fL RDW Coeff of Maximilian (11.5-14.5) % Plt Count (130-400) K/uL MPV (7.4-10.4) fL Immature Gran % (Auto) % Neut % (Auto) % Lymph % (Auto) % [place] % (Auto) % Eos % (Auto) % Baso % (Auto) % Immature Gran # (Auto) (0.00-0.02) K/uL Neut # (Auto) (1.4-6.5) K/uL Lymph # (Auto) (1.2-3.4) K/uL [place] # (Auto) (0.11-0.59) K/uL Eos # (Auto) (0-0.5) K/uL Baso # (Auto) (0-0.2) K/uL PT (9.0-12.0) Seconds INR (0.9-1.1) APTT (21.0-31.0) Seconds PTT Ratio Sodium (136-145) mmol/L Potassium (3.5-5.1) mmol/L Chloride (98-107) mmol/L Carbon Dioxide (21-32) mmol/L Anion Gap (3-11) BUN (7-18) mg/dl Creatinine (0.6-1.4) mg/dl Est Cr Clr Drug Dosing ml/min Est GFR ( Amer) Est GFR (Non-Af Amer) BUN/Creatinine Ratio (10-20) Glucose (70-99) mg/dl Lactate 1.1 (0.4-2.0) mmol/L Calcium (8.5-10.1) mg/dl Blood Pressure Blood Pressure Findings: Elevated blood pressure Blood Pressure Disposition: further management by hospitalist NICOLE Narrative 1528: Past medical records reviewed. The patient was evaluated in room C1A, and a complete history and physical examination were performed. The patient was seen in the ED on June 02 and diagnosed with cellulitis. The patient wad a white c ount of 12.2, negative US bilateral extremities, and was discharged with Keflex and doxycycline. 1720: Vital signs stable. Leukocytosis is improving compared to previous ED visit on June 02, however clinically the cellulitis is worsening given the seeping wounds through the rags were applied. Patient will be admitted for cellulitis failed outpatient treatment to the hospitalist service and treated with vancomycin 1 g IV piggyback. I discussed the patient's case with Dr. Tavo Monsalve- Internal Medicine who will evaluate the patient for further hospitalization. Impression & Plan Cellulitis of both lower extremities Discharge Plan Visit Data *Final* Discharge Date/Time: 06/07/18 18:41 Chief Complaint: Skin Problem Stated Complaint: CELLULITIS ED Provider: Yazan Finn Discharge Problem: Cellulitis of both lower extremities Patient Disposition: Admitted As Inpatient Discharge Instructions Interventions: ED Discharge Assessment Last Done: 06/07/18 18:41 The scribe's documentation has been prepared under my direction and personally reviewed by me in its entirety. I confirm that the note above accurately reflects all work, treatment, procedures, and medical decision making performed by me.
[2018-06-07] MEDS: SACCHAROMYCES BOULARDII 250 MG CAP PO SCH (20:34)
[2018-06-07] MEDS: HEPARIN SOD 5,000 UNIT/0.5 ML VIAL SQ SCH (20:36)
[2018-06-07] MEDS: SIMVASTATIN 20 MG TAB PO SCH (20:42)
[2018-06-07] MEDS: LISINOPRIL 40 MG TAB PO SCH (20:42)
[2018-06-07] MEDS: CHOLECALCIFEROL 1,000 UNITS TAB PO SCH (20:42)
[2018-06-07] MEDS: CYANOCOBALAMIN 500 MCG TABLET (VITAMIN B-12) PO SCH (20:42)
[2018-06-07] MEDS: VANCOMYCIN HCL 1,750 MG in SODIUM CHLORIDE 0.9% 500 ML IV SCH (21:09)
[2018-06-08] MEDS: PIPERACILLIN/TAZOBACTAM 4.5 GM in DEXTROSE 5% 100 ML IV SCH ×3 (00:39→18:26)
[2018-06-08 06:25] LABS: Basophils # (auto) 0.02 K/uL (0-0.2); Basophils % (auto) 0.2 %; Eosinophils # (auto) 0.16 K/uL (0-0.5); Eosinophils % (auto) 1.9 %; Hematocrit (blood only) 36.9 % (42-52); Hemoglobin 12.2 g/dL (14.0-18.0); Immature Granulocytes # (auto) 0.02 K/uL (0.00-0.02); Immature Granulocytes % (auto) 0.2 %; Lymphocytes # (auto) 1.18 K/uL (1.2-3.4); Lymphocytes % (auto) 13.8 %; Mean Corpuscular Hgb Conc 33.1 g/dL (32-36); Mean Corpuscular Volume 88.9 fL (80-100); Mean Platelet Volume 8.9 fL (7.4-10.4); Monocytes # (auto) 1.07 K/uL (0.11-0.59); Monocytes % (auto) 12.5 %; Neutrophils # (auto) 6.13 K/uL (1.4-6.5); Neutrophils % (auto) 71.4 %; Platelet Count 424 K/uL (130-400); RDW Coefficient of Variation 13.7 % (11.5-14.5); RDW Standard Deviation 44.7 fL (36.4-46.3); Red Blood Count 4.15 M/uL (4.7-6.1); White Blood Count 8.58 K/uL (4.8-10.8)
[2018-06-08] MEDS ORDERED: LEVOTHYROXINE SODIUM 112 MCG TABLET PO SCH (06:30)
[2018-06-08 06:42] LABS: Albumin Level 2.7 gm/dl (3.4-5.0); BUN Creatinine Ratio 28.3 (10-20); Calcium 9.1 mg/dl (8.5-10.1); Creatinine Clr Calc Pharmacy 79.7 ml/min; Est GFR (African American) 59.3; Est GFR (Non-African American) 51.2; Magnesium 2.3 mg/dl (1.8-2.4); Potassium 3.8 mmol/L (3.5-5.1)
[2018-06-08 06:45] LABS: Albumin Globulin Ratio 0.6 (0.9-2); Bilirubin,Total 0.5 mg/dl (0.2-1); Globulin 4.2 gm/dl (2.5-4.0); Total Protein 6.9 gm/dl (6.4-8.2)
[2018-06-08] MEDS: HEPARIN SOD 5,000 UNIT/0.5 ML VIAL SQ SCH ×2 (08:04→20:16)
[2018-06-08] MEDS: SACCHAROMYCES BOULARDII 250 MG CAP PO SCH ×2 (08:05→20:18)
[2018-06-08] MEDS: VANCOMYCIN HCL 1,750 MG in SODIUM CHLORIDE 0.9% 500 ML IV SCH (12:27)
--- NOTE | 2018-06-08 13:42 | Pharmacy Report ---
Pharmacy Abx Initial Consult - Date of Service June 08, 2018 - Pharmacy Dosing Scope Date of Consult: 06/07 Consultation requested by: Dr. Monsalve Pharmacy is consulted to initiate vancomycin and Zosyn IV dosing therapy, order appropriate labs and adjust drug dose/frequency. - Subjective The patient is a 77 year old M admitted on 06/07/18 18:06. - Objective Height: 6 ft 5 in Weight: 169.1 kg Vital Signs (Past 12hrs): Vital Signs Temp Pulse Resp BP Pulse Ox 06/08/18 07:53 36.7 C 81 20 130/79 92 Lab Results (24hrs): Laboratory Tests (24 Hours) 06/08/18 06/08/18 06/07/18 05:49 05:49 16:30 WBC 8.58 Neut # (Auto) 6.13 Creatinine 1.33 1.36 Est Cr Clr Drug Dosing 79.7 69.4 06/07/18 16:13 WBC 10.84 H Neut # (Auto) 8.47 H Creatinine Est Cr Clr Drug Dosing Micro Results: 06/07/18 19:31 Blood Culture - Pending Blood 06/07/18 19:22 Blood Culture - Pending Blood - Assessment & Plan Assessment 77 year old M admitted on 06/07 for worsening b/l lower extremity cellulitis (weeping noted), after being on Keflex and doxycycline from 06/02 when initially seen in the ER. He has no risk factors for gram negative organisms so would probably not need the Zosyn; however, physician would like to continue until blood cultures have resulted since the patient was worsening on po antibiotics. Plan Vancomycin IV * Estimated PK Parameters: Vd 0.54 L/kg (for BMI = 44, updated weight was 169 k g), Christian 0.07 hr-1, t1/2 9.9 hr * Continue maintenance dose of 1750 mg IV (10.3 mg/kg) every 14 hours * Goal trough level : ~15 mcg/mL * Trough level ordered for 06/09/18 prior to the 4th dose. I was going to obtain level sooner but do not anticipate too much accumulation now that current dose is closer to 10 mg/kg with updated weight. * A less than traditional dose has been selected due to likelihood of drug accumulation in obese patient Piperacillin/tazobactam * Continue 4.5 g IV extended infusion every 8 hours for CrCl greater than 20 mL/min * Aggressive dosing selected due to BMI 35 or more Pharmacy will continue to follow and will adjust dose/frequency as necessary. Thank you.
--- NOTE | 2018-06-08 15:38 | Hospitalist Progress Note ---
Date of Service June 08, 2018 Assessment & Plan (1) Cellulitis of both lower extremities: -Vancomycin given in the ED -awaiting results of the admission blood cultures -continue antibiotics as both vancomycin and Zosyn (both started on 06/07/18) -monitor vancomycin level and renal function -patient recently on Lasix for lower extremity edema with the erythema, denies history of CHF -will give Lasix 20 mg IV on 06/08/18 and re-evaluate Lasix on day to day basis Hypertension -continue home dose lisinopril 40 mg daily -monitor renal function Hypothyroidism -continue daily levothyroxine of 150 mcg on // and 225 mcg daily on other days other cardiovascular continue home dose simvastatin Full Code Status [phone] Subjective Patient is afebrile. Continues to be on IV antibiotics. denies chest pain or shortness of breath. no abdominal pain. no vomiting Physical Exam Vital Signs (Past 24 Hours): Last Vital Signs Temp 36.7 C 06/08/18 15:10 Pulse 84 06/08/18 15:10 Resp 20 06/08/18 15:10 BP 132/71 06/08/18 15:10 Pulse Ox 90 06/08/18 15:10 Constitutional: WD/WN, vitals as above Eyes: PERRL, conjunctivae normal, anicteric sclerae ENMT: external ear and nose normal, oropharynx normal Neck: trachea midline, no thyromegaly normal visual inspection Respiratory: normal respiratory effort, lungs clear to auscultation Cardiovascular: RRR, no murmur, no edema Gastrointestinal (Abdomen): normal bowel sounds, soft, nontender, no hepato splenomegaly Musculoskeletal: bilateral lower extremity erythema below the knees, with some leg edema Neurologic: PERRL, EOMI, accommodation nl, no face palsy, no dysarthria CN's II-XI intact bilaterally Psychiatric: A+Ox3, euthymic affect
[2018-06-08] MEDS ORDERED: FUROSEMIDE 20 MG in SYRINGE 0 ML IV ONE (15:45)
[2018-06-08] MEDS: LISINOPRIL 40 MG TAB PO SCH (20:17)
[2018-06-08] MEDS: CHOLECALCIFEROL 1,000 UNITS TAB PO SCH (20:17)
[2018-06-08] MEDS: CYANOCOBALAMIN 500 MCG TABLET (VITAMIN B-12) PO SCH (20:18)
[2018-06-08] MEDS: SIMVASTATIN 20 MG TAB PO SCH (20:18)
[2018-06-09] MEDS: VANCOMYCIN HCL 1,750 MG in SODIUM CHLORIDE 0.9% 500 ML IV SCH (03:19)
[2018-06-09] MEDS: PIPERACILLIN/TAZOBACTAM 4.5 GM in DEXTROSE 5% 100 ML IV SCH ×3 (03:20→18:19)
[2018-06-09] MEDS: LEVOTHYROXINE SODIUM 112 MCG TABLET PO SCH (05:57)
[2018-06-09] MEDS: LEVOTHYROXINE SODIUM 150 MCG TABLET PO SCH (05:58)
[2018-06-09 06:39] LABS: Basophils # (auto) 0.02 K/uL (0-0.2); Basophils % (auto) 0.2 %; Eosinophils # (auto) 0.15 K/uL (0-0.5); Eosinophils % (auto) 1.7 %; Hematocrit (blood only) 34.3 % (42-52); Hemoglobin 11.1 g/dL (14.0-18.0); Immature Granulocytes # (auto) 0.01 K/uL (0.00-0.02); Immature Granulocytes % (auto) 0.1 %; Lymphocytes # (auto) 1.26 K/uL (1.2-3.4); Lymphocytes % (auto) 14.2 %; Mean Corpuscular Hgb Conc 32.4 g/dL (32-36); Mean Corpuscular Volume 90.3 fL (80-100); Mean Platelet Volume 8.8 fL (7.4-10.4); Monocytes # (auto) 1.15 K/uL (0.11-0.59); Monocytes % (auto) 12.9 %; Neutrophils % (auto) 70.9 %; Platelet Count 373 K/uL (130-400); RDW Coefficient of Variation 13.9 % (11.5-14.5); RDW Standard Deviation 45.6 fL (36.4-46.3); White Blood Count 8.89 K/uL (4.8-10.8)
[2018-06-09 07:10] LABS: Albumin Level 2.6 gm/dl (3.4-5.0); Calcium 8.6 mg/dl (8.5-10.1); Creatinine Clr Calc Pharmacy 75.2 ml/min; Est GFR (African American) 55.3; Est GFR (Non-African American) 47.7; Potassium 3.7 mmol/L (3.5-5.1)
[2018-06-09 07:13] LABS: Albumin Globulin Ratio 0.7 (0.9-2); Bilirubin,Total 0.4 mg/dl (0.2-1); Globulin 3.9 gm/dl (2.5-4.0); Total Protein 6.5 gm/dl (6.4-8.2)
[2018-06-09] MEDS: HEPARIN SOD 5,000 UNIT/0.5 ML VIAL SQ SCH ×2 (08:36→20:11)
[2018-06-09] MEDS: SACCHAROMYCES BOULARDII 250 MG CAP PO SCH ×2 (08:36→20:09)
[2018-06-09] MEDS ORDERED: VANCOMYCIN TROUGH ONE (14:30)
--- NOTE | 2018-06-09 17:29 | Hospitalist Progress Note ---
Date of Service June 09, 2018 Assessment & Plan (1) Cellulitis of both lower extremities: -Vancomycin given in the ED -vancomycin and Zosyn (both started on 06/07/18) -the admission blood cultures06/07/18 without evidence of MRSA and Vancomycin stopped on 06/09/18 (1 of 2 admission blood cultures Alpha strep not S.pne/enteroco which means maybe contaminant), repeat blood culture on 06/08/18 with results pending and to continue Zosyn IV alone for now -patient recently on Lasix for lower extremity edema with the erythema, denies history of CHF -give Lasix 20 mg IV on 06/08/18 and on 06/09/18 and resume home dose oral Lasix starting on 06/10/18 Hypertension -continue home dose lisinopril 40 mg daily -monitor renal function Hypothyroidism -continue daily levothyroxine of 150 mcg on // and 225 mcg daily on other days other cardiovascular continue home dose simvastatin Full Code Status [phone] Subjective Patient is afebrile. denies chest pain or shortness of breath. no abdominal pain. no vomiting. The legs appear more dry today Physical Exam Vital Signs (Past 24 Hours): Last Vital Signs Temp 36.5 C 06/09/18 15:23 Pulse 78 06/09/18 15:23 Resp 20 06/09/18 15:23 BP 142/71 H 06/09/18 15:23 Pulse Ox 92 06/09/18 15:23 Constitutional: WD/WN, vitals as above Eyes: PERRL, conjunctivae normal, anicteric sclerae ENMT: external ear and nose normal, oropharynx normal Neck: trachea midline, no thyromegaly normal visual inspection Respiratory: normal respiratory effort, lungs clear to auscultation Cardiovascular: RRR, no murmur, no edema Gastrointestinal (Abdomen): normal bowel sounds, soft, nontender, no hepatosplenomegaly Musculoskeletal: bilateral lower extremity erythema with some skin exfoliation, less edema today Neurologic: PERRL, EOMI, accommodation nl, no face palsy, no dysarthria CN's II-XI intact bilaterally Psychiatric: A+Ox3, euthymic affect
[2018-06-09] MEDS ORDERED: FUROSEMIDE 20 MG in SYRINGE 0 ML IV ONE (18:15)
[2018-06-09] MEDS ORDERED: ALUMINUM/MAGNESIUM/SIMETH (MAALOX MAX) 30 ML UDC PO PRN (19:20)
[2018-06-09] MEDS: LISINOPRIL 40 MG TAB PO SCH (20:09)
[2018-06-09] MEDS: CYANOCOBALAMIN 500 MCG TABLET (VITAMIN B-12) PO SCH (20:10)
[2018-06-09] MEDS: CHOLECALCIFEROL 1,000 UNITS TAB PO SCH (20:10)
[2018-06-09] MEDS: SIMVASTATIN 20 MG TAB PO SCH (20:12)
[2018-06-10] MEDS: PIPERACILLIN/TAZOBACTAM 4.5 GM in DEXTROSE 5% 100 ML IV SCH ×2 (02:31→10:49)
[2018-06-10] MEDS: TRAMADOL HCL 50 MG TABLET PO PRN ×2 (04:12→11:04)
[2018-06-10] MEDS: LEVOTHYROXINE SODIUM 112 MCG TABLET PO SCH (05:59)
[2018-06-10 07:47] LABS: Basophils # (auto) 0.02 K/uL (0-0.2); Basophils % (auto) 0.2 %; Eosinophils # (auto) 0.15 K/uL (0-0.5); Eosinophils % (auto) 1.5 %; Hematocrit (blood only) 33.3 % (42-52); Hemoglobin 10.8 g/dL (14.0-18.0); Immature Granulocytes # (auto) 0.02 K/uL (0.00-0.02); Immature Granulocytes % (auto) 0.2 %; Lymphocytes # (auto) 1.01 K/uL (1.2-3.4); Lymphocytes % (auto) 10.1 %; Mean Corpuscular Hgb Conc 32.4 g/dL (32-36); Mean Corpuscular Volume 90.7 fL (80-100); Mean Platelet Volume 8.6 fL (7.4-10.4); Monocytes # (auto) 1.33 K/uL (0.11-0.59); Monocytes % (auto) 13.3 %; Neutrophils # (auto) 7.46 K/uL (1.4-6.5); Neutrophils % (auto) 74.7 %; Platelet Count 360 K/uL (130-400); RDW Coefficient of Variation 13.8 % (11.5-14.5); RDW Standard Deviation 45.8 fL (36.4-46.3); Red Blood Count 3.67 M/uL (4.7-6.1); White Blood Count 9.99 K/uL (4.8-10.8)
[2018-06-10] MEDS: FUROSEMIDE 40 MG TAB PO SCH ×2 (07:51→16:10)
[2018-06-10] MEDS: SACCHAROMYCES BOULARDII 250 MG CAP PO SCH ×2 (07:51→21:13)
[2018-06-10] MEDS: HEPARIN SOD 5,000 UNIT/0.5 ML VIAL SQ SCH ×2 (07:52→21:16)
[2018-06-10 08:04] LABS: BUN Creatinine Ratio 21.6 (10-20); Calcium 8.7 mg/dl (8.5-10.1); Creatinine Clr Calc Pharmacy 77.9 ml/min; Est GFR (African American) 57.8; Est GFR (Non-African American) 49.8; Potassium 3.8 mmol/L (3.5-5.1)
--- NOTE | 2018-06-10 12:22 | Hospitalist Progress Note ---
Date of Service June 10, 2018 Assessment & Plan (1) Cellulitis of both lower extremities: -Vancomycin given in the ED -vancomycin and Zosyn (both started on 06/07/18) -the admission blood cultures06/07/18 without evidence of MRSA and Vancomycin stopped on 06/09/18 (1 of 2 admission blood cultures Alpha strep not S.pne/enteroco which means maybe contaminant), repeat blood culture on 06/08/18 with results no growth to date as of 06/10/18. So with clinical improvements patient transitioned from IV Zosyn to IV ceftriaxone and IV Doxycycline on 06/10/18 -patient recently on Lasix for lower extremity edema with the erythema, denies history of CHF -give Lasix 20 mg IV on 06/08/18 and on 06/09/18 and resume home dose oral Lasix starting on 06/10/18 Hypertension -continue home dose lisinopril 40 mg daily -monitor renal function Hypothyroidism -continue daily levothyroxine of 150 mcg on // and 225 mcg daily on other days other cardiovascular continue home dose simvastatin Will get physical and occupational therapy to assess ambulation needs Full Code Status [phone] Subjective bilateral lower extremity redness and swelling is improving. Patient needed additional assistance with ambulation today Patient is afebrile. denies chest pain or shortness of breath. no abdominal pain. no vomiting. Patient seen and examined with his and daughter at bedside. Hospitalist allowed to speak with family as per patient and their questions were answered Physical Exam Vital Signs (Past 24 Hours): Last Vital Signs Temp 36.8 C 06/10/18 07:14 Pulse 80 06/10/18 07:14 Resp 18 06/10/18 07:14 BP 138/79 06/10/18 07:14 Pulse Ox 93 06/10/18 07:14 Constitutional: WD/WN, vitals as above Eyes: PERRL, conjunctivae normal, anicteric sclerae ENMT: external ear and nose normal, oropharynx normal Neck: trachea midline, no thyromegaly normal visual inspection Respiratory: normal respiratory effort, lungs clear to auscultation Cardiovascular: RRR, no murmur, no edema Gastrointestinal (Abdomen): normal bowel sounds, soft, nontender, no hepatosplenomegaly Musculoskeletal: bilateral lower extremity redness and swelling is improving Neurologic: PERRL, EOMI, accommodation nl, no face palsy, no dysarthria CN's II-XI intact bilaterally Psychiatric: A+Ox3, euthymic affect
[2018-06-10] MEDS ORDERED: NURSING DECISION MEDICATION ONE (12:24)
[2018-06-10] MEDS ORDERED: PANTOprazole 40 MG TAB PO ONE (12:30)
[2018-06-10] MEDS ORDERED: SODIUM CHLORIDE 0.65% NA SOLN 45 ML (OCEAN) ONE (12:34)
[2018-06-10] MEDS ORDERED: SODIUM CHLORIDE 0.65% NA SOLN 45 ML (OCEAN) PRN (12:37)
[2018-06-10] MEDS: DOXYCYCLINE HYCLATE 100 MG in DEXTROSE 5% 100 ML IV SCH (14:46)
[2018-06-10] MEDS: cefTRIAXone SODIUM 2,000 MG in DEXTROSE 5% 50 ML IV SCH (14:54)
[2018-06-10] MEDS: CYANOCOBALAMIN 500 MCG TABLET (VITAMIN B-12) PO SCH (21:13)
[2018-06-10] MEDS: SIMVASTATIN 20 MG TAB PO SCH (21:13)
[2018-06-10] MEDS: CHOLECALCIFEROL 1,000 UNITS TAB PO SCH (21:13)
[2018-06-10] MEDS: LISINOPRIL 40 MG TAB PO SCH (21:14)
[2018-06-11] MEDS: DOXYCYCLINE HYCLATE 100 MG in DEXTROSE 5% 100 ML IV SCH ×2 (00:58→13:40)
[2018-06-11] MEDS: LEVOTHYROXINE SODIUM 112 MCG TABLET PO SCH (06:11)
[2018-06-11 07:37] LABS: Basophils # (auto) 0.04 K/uL (0-0.2); Basophils % (auto) 0.4 %; Eosinophils # (auto) 0.14 K/uL (0-0.5); Eosinophils % (auto) 1.5 %; Hematocrit (blood only) 35.2 % (42-52); Hemoglobin 11.4 g/dL (14.0-18.0); Immature Granulocytes # (auto) 0.02 K/uL (0.00-0.02); Immature Granulocytes % (auto) 0.2 %; Lymphocytes % (auto) 10.7 %; Mean Corpuscular Hgb Conc 32.4 g/dL (32-36); Mean Corpuscular Volume 90.7 fL (80-100); Mean Platelet Volume 8.2 fL (7.4-10.4); Monocytes # (auto) 1.16 K/uL (0.11-0.59); Monocytes % (auto) 12.4 %; Neutrophils # (auto) 6.97 K/uL (1.4-6.5); Neutrophils % (auto) 74.8 %; Platelet Count 336 K/uL (130-400); RDW Coefficient of Variation 13.9 % (11.5-14.5); RDW Standard Deviation 45.6 fL (36.4-46.3); Red Blood Count 3.88 M/uL (4.7-6.1); White Blood Count 9.33 K/uL (4.8-10.8)
[2018-06-11] MEDS ORDERED: FUROSEMIDE 20 MG in SYRINGE 0 ML IV ONE (07:45)
[2018-06-11 07:54] LABS: BUN Creatinine Ratio 24.4 (10-20); Creatinine Clr Calc Pharmacy 85.5 ml/min; Est GFR (African American) 64.6; Est GFR (Non-African American) 55.7; Potassium 3.8 mmol/L (3.5-5.1)
[2018-06-11] MEDS: SACCHAROMYCES BOULARDII 250 MG CAP PO SCH ×2 (09:07→20:46)
[2018-06-11] MEDS: HEPARIN SOD 5,000 UNIT/0.5 ML VIAL SQ SCH ×2 (09:09→20:45)
[2018-06-11] MEDS: FUROSEMIDE 40 MG TAB PO SCH ×2 (09:11→17:23)
[2018-06-11] MEDS: PANTOprazole 40 MG TAB PO SCH (09:11)
[2018-06-11] MEDS ORDERED: IBUPROFEN 200 MG TAB PO PRN (12:02)
[2018-06-11] MEDS ORDERED: predniSONE 20 MG TAB PO ONE (12:15)
[2018-06-11] MEDS ORDERED: IBUPROFEN 800 MG TAB PO ONE (12:15)
[2018-06-11] MEDS: cefTRIAXone SODIUM 2,000 MG in DEXTROSE 5% 50 ML IV SCH (12:16)
--- NOTE | 2018-06-11 15:38 | Hospitalist Progress Note ---
Date of Service June 11, 2018 Assessment & Plan (1) Cellulitis of both lower extremities: -Vancomycin given in the ED -vancomycin and Zosyn (both started on 06/07/18) -the admission blood cultures06/07/18 without evidence of MRSA and Vancomycin stopped on 06/09/18 (1 of 2 admission blood cultures Alpha strep not S.pne/enteroco which means maybe contaminant), repeat blood culture on 06/08/18 with results no growth to date as of 06/10/18. So with clinical improvements patient transitioned from IV Zosyn to IV ceftriaxone and IV Doxycycline on 06/10/18 -patient recently on Lasix for lower extremity edema with the erythema, denies history of CHF -give Lasix 20 mg IV on 06/08/18 and on 06/09/18 and resume home dose oral Lasix 40 mg BID starting on 06/10/18 -06/11/18: was given additional dose of Lasix 20 mg IV with scheduled oral Lasix 40 mg BID Hypertension -continue home dose lisinopril 40 mg daily -monitor renal function Hypothyroidism -continue daily levothyroxine of 150 mcg on // and 225 mcg daily on other days other cardiovascular continue home dose simvastatin Ambulatory dysfunction -physical and occupational therapy assessments -occupational therapy at this time recommends shelter facility Acute gout of left hand -give ibuprrofen prn -started prednisone 20 mg daily Full Code Status [phone] Subjective bilateral lower extremity redness and swelling is improving. But patient reported problems with ambulation with therapy patient also reports gout flare and left hand swollen Patient is afebrile. denies chest pain or shortness of breath. no abdominal pain. no vomiting. Physical Exam Vital Signs (Past 24 Hours): Last Vital Signs Temp 36.5 C 06/11/18 07:13 Pulse 84 06/11/18 07:13 Resp 20 06/11/18 07:13 BP 130/76 06/11/18 07:52 Pulse Ox 91 06/11/18 07:13 Constitutional: WD/WN, vitals as above Eyes: PERRL, conjunctivae normal, anicteric sclerae ENMT: external ear and nose normal, oropharynx normal Neck: trachea midline, no thyromegaly normal visual inspection Respiratory: normal respiratory effort, lungs clear to auscultation Cardiovascular: RRR, no murmur, no edema Gastrointestinal (Abdomen): normal bowel sounds, soft, nontender, no hepatosplenomegaly Musculoskeletal: Head/Neck/Chest: normocephalic and head atraumatic Extremities: + upper extremity abnormal to inspection (left hand swelling) Neurologic: PERRL, EOMI, accommodation nl, no face palsy, no dysarthria CN's II-XI intact bilaterally Psychiatric: A+Ox3, euthymic affect
[2018-06-11] MEDS: CHOLECALCIFEROL 1,000 UNITS TAB PO SCH (20:46)
[2018-06-11] MEDS: CYANOCOBALAMIN 500 MCG TABLET (VITAMIN B-12) PO SCH (20:46)
[2018-06-11] MEDS: LISINOPRIL 40 MG TAB PO SCH (20:46)
[2018-06-11] MEDS: SIMVASTATIN 20 MG TAB PO SCH (20:47)
[2018-06-12] MEDS: DOXYCYCLINE HYCLATE 100 MG in DEXTROSE 5% 100 ML IV SCH ×2 (00:19→12:39)
[2018-06-12] MEDS: LEVOTHYROXINE SODIUM 150 MCG TABLET PO SCH (05:58)
[2018-06-12 06:34] LABS: BUN Creatinine Ratio 21.4 (10-20); Creatinine Clr Calc Pharmacy 67.6 ml/min; Est GFR (African American) 50.1; Est GFR (Non-African American) 43.2; Potassium 4.2 mmol/L (3.5-5.1); Uric Acid 9.8 mg/dl (2.6-7.2)
[2018-06-12 06:37] LABS: Basophils # (auto) 0.01 K/uL (0-0.2); Basophils % (auto) 0.1 %; Hematocrit (blood only) 34.6 % (42-52); Hemoglobin 11.5 g/dL (14.0-18.0); Immature Granulocytes # (auto) 0.02 K/uL (0.00-0.02); Immature Granulocytes % (auto) 0.2 %; Lymphocytes # (auto) 0.82 K/uL (1.2-3.4); Lymphocytes % (auto) 8.1 %; Mean Corpuscular Hgb Conc 33.2 g/dL (32-36); Mean Corpuscular Volume 90.1 fL (80-100); Mean Platelet Volume 8.7 fL (7.4-10.4); Monocytes % (auto) 8.9 %; Neutrophils # (auto) 8.36 K/uL (1.4-6.5); Neutrophils % (auto) 82.7 %; Platelet Count 366 K/uL (130-400); RBC Morphology Unremarkable; RDW Coefficient of Variation 13.8 % (11.5-14.5); RDW Standard Deviation 45.3 fL (36.4-46.3); Red Blood Count 3.84 M/uL (4.7-6.1); White Blood Count 10.11 K/uL (4.8-10.8)
[2018-06-12] MEDS: PANTOprazole 40 MG TAB PO SCH (08:37)
[2018-06-12] MEDS: SACCHAROMYCES BOULARDII 250 MG CAP PO SCH ×2 (08:37→20:27)
[2018-06-12] MEDS: SODIUM CHLORIDE 0.9% 500 ML IV SCH ×3 (08:38→21:34)
[2018-06-12] MEDS: HEPARIN SOD 5,000 UNIT/0.5 ML VIAL SQ SCH ×2 (08:38→20:27)
[2018-06-12] MEDS: predniSONE 20 MG TAB PO SCH (09:29)
[2018-06-12] MEDS: cefTRIAXone SODIUM 2,000 MG in DEXTROSE 5% 50 ML IV SCH (12:58)
[2018-06-12 14:43] LABS: BUN Creatinine Ratio 23.9 (10-20); Calcium 9.4 mg/dl (8.5-10.1); Creatinine Clr Calc Pharmacy 70.9 ml/min; Est GFR (Non-African American) 45.7; Potassium 4.2 mmol/L (3.5-5.1)
--- NOTE | 2018-06-12 14:53 | Hospitalist Progress Note ---
Date of Service June 12, 2018 Assessment & Plan (1) Cellulitis of both lower extremities: -Vancomycin given in the ED -vancomycin and Zosyn (both started on 06/07/18) -the admission blood cultures 06/07/18 without evidence of MRSA and Vancomycin stopped on 06/09/18 (1 of 2 admission blood cultures Alpha strep not S.pne/enteroco which means maybe contaminant), repeat blood culture on 06/08/18 with results no growth to date as of 06/10/18. So with clinical improvements patient transitioned from IV Zosyn to IV ceftriaxone and IV Doxycycline on 06/10/18 -patient recently on Lasix for lower extremity edema with the erythema, denies history of CHF -give Lasix 20 mg IV on 06/08/18 and on 06/09/18 and resume home dose oral Lasix 40 mg BID starting on 06/10/18 -06/11/18: was given additional dose of Lasix 20 mg IV with scheduled oral Lasix 40 mg BID -06/12/18: will hold Lasix because of mild acute kidney injury, will transition patient to oral antibiotics of doxycycline and Keflex Mild acute kidney injury -will hold Lasix because of mild kidney injury on 06/12/18 Hypertension -continue home dose lisinopril 40 mg daily Hypothyroidism -continue daily levothyroxine of 150 mcg on // and 225 mcg daily on other days other cardiovascular continue home dose simvastatin Ambulatory dysfunction -physical and occupational therapy assessments -occupational therapy at this time recommends shelter facility -field nurse case manager 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 denies chest pain or shortness of breath. no abdominal pain. no vomiting. Physical Exam Vital Signs (Past 24 Hours): Last Vital Signs Temp 36.7 C 06/12/18 07:17 Pulse 86 06/12/18 07:17 Resp 18 06/12/18 07:17 BP 155/89 H 06/12/18 07:17 Pulse Ox 90 06/12/18 07:17 Constitutional: WD/WN, vitals as above Eyes: PERRL, conjunctivae normal, anicteric sclerae ENMT: external ear and nose normal, oropharynx normal Neck: trachea midline, no thyromegaly normal visual inspection Respiratory: normal respiratory effort, lungs clear to auscultation Cardiovascular: RRR, no murmur, no edema Gastrointestinal (Abdomen): normal bowel sounds, soft, nontender, no hepatosplenomegaly Musculoskeletal: Head/Neck/Chest: normocephalic and head atraumatic Extrem ities: + upper extremity abnormal to inspection (left hand swelling) Skin: bilateral lower extremity erythema is resolved with some leg swelling b ilaterally Neurologic: PERRL, EOMI, accommodation nl, no face palsy, no dysarthria CN's II-XI intact bilaterally Psychiatric: A+Ox3, euthymic affect
[2018-06-12] MEDS: cephALEXin 500 MG CAP PO SCH ×2 (16:40→20:27)
[2018-06-12] MEDS: DOXYCYCLINE HYCLATE 100 MG CAP PO SCH (20:27)
[2018-06-12] MEDS: SIMVASTATIN 20 MG TAB PO SCH (20:27)
[2018-06-12] MEDS: CHOLECALCIFEROL 1,000 UNITS TAB PO SCH (20:27)
[2018-06-12] MEDS: CYANOCOBALAMIN 500 MCG TABLET (VITAMIN B-12) PO SCH (20:27)
[2018-06-13] MEDS: SODIUM CHLORIDE 0.9% 500 ML IV SCH ×2 (03:07→08:36)
[2018-06-13] MEDS: LEVOTHYROXINE SODIUM 112 MCG TABLET PO SCH (06:13)
[2018-06-13] MEDS: TRAMADOL HCL 50 MG TABLET PO PRN (08:33)
[2018-06-13] MEDS: DOXYCYCLINE HYCLATE 100 MG CAP PO SCH (08:35)
[2018-06-13] MEDS: cephALEXin 500 MG CAP PO SCH (08:35)
[2018-06-13] MEDS: predniSONE 20 MG TAB PO SCH (08:36)
[2018-06-13] MEDS: PANTOprazole 40 MG TAB PO SCH (08:36)
[2018-06-13] MEDS: SACCHAROMYCES BOULARDII 250 MG CAP PO SCH (08:36)
[2018-06-13] MEDS: HEPARIN SOD 5,000 UNIT/0.5 ML VIAL SQ SCH (08:37)
[2018-06-13 08:54] LABS: BUN Creatinine Ratio 31.4 (10-20); Creatinine Clr Calc Pharmacy 92.4 ml/min
[2018-06-13] MEDS ORDERED: FUROSEMIDE 40 MG TAB PO ONE (08:56)
--- NOTE | 2018-06-13 11:05 | Hospitalist Progress Note ---
Date of Service June 13, 2018 Assessment & Plan (1) Cellulitis of both lower extremities: -Vancomycin given in the ED -vancomycin and Zosyn (both started on 06/07/18) -the admission blood cultures 06/07/18 without evidence of MRSA and Vancomycin stopped on 06/09/18 (1 of 2 admission blood cultures Alpha strep not S.pne/enteroco which means maybe contaminant), repeat blood culture on 06/08/18 with results no growth to date as of 06/10/18. So with clinical improvements patient transitioned from IV Zosyn to IV ceftriaxone and IV Doxycycline on 06/10/18 -patient recently on Lasix for lower extremity edema with the erythema, denies history of CHF -give Lasix 20 mg IV on 06/08/18 and on 06/09/18 and resume home dose oral Lasix 40 mg BID starting on 06/10/18 -06/11/18: was given additional dose of Lasix 20 mg IV with scheduled oral Lasix 40 mg BID -06/12/18: will held Lasix because of mild acute kidney injury, will transition patient to oral antibiotics of doxycycline and Keflex -06/13/18:Cellulitis of the bilateral legs have improved during hospital stay overall and patient should take prescribed cephalexin 500 mg QID (four times a day) and oral doxycyline 100 mg BID (twice a day) for 4 more days to complete the treatment of antibiotics Leg swelling of the bilateral legs have improved and to prevent acute kidney injury patient should take furosemide as 40 mg daily instead of twice a day which was patient's previous home dosing frequency acute kidney injury -held Lasix because of mild kidney injury on 06/12/18 -acute kidney injury has resolved as of 06/13/18 after IV fluids Hypertension -continue home dose lisinopril 40 mg daily Hypothyroidism -For hypothyroidism, continue taken home dose Levoythroxine 225 mcg every morning on Tuesday/Tuesday//Tuesday and 150 mcg every morning for Tuesday/Tuesday/Tuesday. Patient should follow up with primary care doctor to repeat TSH and T4 levels in 2 weeks other cardiovascular continue home dose simvastatin Ambulatory dysfunction -physical and occupational therapy assessments -occupational therapy at this time recommends residential facility -Patient is to be discharge to [facility] Acute gout of left hand -started prednisone 40 mg daily on 06/11/18, continued 40 mg prednisone up to 06/13/18 for now -patient should take 400 mg every 8 hours of ibuprofen as needed for pain as prescribed. Also to take prednisone 20 mg daily for 5 more days starting on 06/14/18 Full Code Status kelley [phone] Discharge Diagnosis Cellulitis of both lower extremities, Hypothyroidism, Hypertension, Acute gout of left hand, Acute Kidney injury (resolved), Ambulatory dysfunction Discharge Instructions Patient is to be discharge to [facility] Cellulitis of the bilateral legs have improved during hospital stay: take prescribed cephalexin 500 mg QID (four times a day) and oral doxycyline 100 mg BID (twice a day) for 4 more days to complete the treatment of antibiotics Leg swelling of the bilateral legs have improved: to prevent acute kidney injury: take furosemide as 40 mg daily instead of twice a day which was patient's previous home dosing frequency For gout: patient should take 400 mg every 8 hours of ibuprofen as needed for pain as prescribed. Also to take prednisone 20 mg daily for 5 more days starting on 06/14/18 For hypothyroidism, continue taken home dose Levoythroxine 225 mcg every morning on Tuesday/Tuesday//Tuesday and 150 mcg every morning for Tuesday//Tuesday. Patient should follow up with primary care doctor to repeat TSH and T4 levels in 2 weeks Subjective left hand gout flare pain controlled with ibuprofen and prednisone Patient is afebrile. denies chest pain or shortness of breath. no abdominal pain. no vomiting. Physical Exam Vital Signs (Past 24 Hours): Last Vital Signs Temp 36.4 C L 06/13/18 07:46 Pulse 80 06/13/18 07:46 Resp 20 06/13/18 07:46 BP 138/81 06/13/18 07:46 Pulse Ox 91 06/13/18 07:46 Constitutional: WD/WN, vitals as above Eyes: PERRL, conjunctivae normal, anicteric sclerae ENMT: external ear and nose normal, oropharynx normal Ears: + hearing impairment Neck: trachea midline, no thyromegaly normal visual inspection Respiratory: normal respiratory effort, lungs clear to auscultation Cardiovascular: RRR, no murmur, no edema Gastrointestinal (Abdomen): normal bowel sounds, soft, nontender, no hepatosplenomegaly Musculoskeletal: Head/Neck/Chest: normocephalic and head atraumatic Extremities: + upper extremity abnormal to inspection (left hand swelling) Neurologic: PERRL, EOMI, accommodation nl, no face palsy, no dysarthria CN's II-XI intact bilaterally Psychiatric: A+Ox3, euthymic affect
--- NOTE | 2018-06-13 11:09 | Discharge Summary ---
Date of Service June 13, 2018 Admission HPI Per Admitting Provider This is a patient with bilateral lower extremity erythema and being treated for cellulitis as outpatient. Patient's condition has not improved with antibiotics and admitted to medical service for IV antibiotics. Patient reports in recent weeks he was prescribed Lasix to help with leg swelling with the leg erythema. Patient denies personal history of heart failure. Denies history of stroke. He denies acute trauma to the leg. He ambulates with cane at home. reports that the last time that his legs were in normal condition was several weeks ago On review of systems, he does not report recent fever, denies chest pain, denies shortness of breath, denies lightheadedness, denies abdominal pain, denies problems with urination or bowel movements Family History: patient denies family history of health problems Allergies: Patient denies allergy history Admission Exam Per Admitting Provider Constitutional: WD/WN, vitals as above Eyes: PERRL, conjunctivae normal, anicteric sclerae ENMT: external ear and nose normal, oropharynx normal Ears: + hearing impairment Neck: trachea midline, no thyromegaly normal visual inspection Respiratory: normal respiratory effort, lungs clear to auscultation Cardiovascular: RRR, no murmur, no edema Gastrointestinal (Abdomen): normal bowel sounds, soft, nontender, no hepatosplenomegaly Skin: bilateral lower extremity erythema below the knees, minor abrasions on the legs, has pedal edema Neurologic: PERRL, EOMI, accommodation nl, no face palsy, no dysarthria CN's II-XI intact bilaterally Psychiatric: A+Ox3, euthymic affect Principal Diagnosis Cellulitis of both lower extremities, Hypothyroidism, Hypertension, Acute gout of left hand, Acute Kidney injury (resolved), Ambulatory dysfunction Discharge Exam Constitutional WD/WN, vitals as above Eyes PERRL, conjunctivae normal, anicteric sclerae ENMT external ear and nose normal, oropharynx normal Neck trachea midline, no thyromegaly normal visual inspection Respiratory normal respiratory effort, lungs clear to auscultation Cardiovascular RRR, no murmur, no edema Gastrointestinal (Abdomen) normal bowel sounds, soft, nontender, no hepatosplenomegaly Musculoskeletal Head/Neck/Chest: normocephalic and head atraumatic Extremities: + upper extremity abnormal to inspection (left hand swelling) Neurologic PERRL, EOMI, accommodation nl, no face palsy, no dysarthria CN's II-XI intact bilaterally Psychiatric A+Ox3, euthymic affect Discharge Data Allergies Allergy/AdvReac Type Severity Reaction Status Date / Time No Known Allergies Allergy Verified 06/07/18 17:05 Consultations 06/07/18 17:29 ED Decision to Admit Stat Hospital Course (1) Cellulitis of both lower extremities: -Vancomycin given in the ED -vancomycin and Zosyn (both started on 06/07/18) -the admission blood cultures 06/07/18 without evidence of MRSA and Vancomycin stopped on 06/09/18 (1 of 2 admission blood cultures Alpha strep not S.pne/enteroco which means maybe contaminant), repeat blood culture on 06/08/18 with results no growth to date as of 06/10/18. So with clinical improvements patient transitioned from IV Zosyn to IV ceftriaxone and IV Doxycycline on 06/10 -patient recently on Lasix for lower extremity edema with the erythema, denies history of CHF -give Lasix 20 mg IV on 06/08/18 and on 06/09/18 and resume home dose oral Lasix 40 mg BID starting on 06/10/18 -06/11/18: was given additional dose of Lasix 20 mg IV with scheduled oral Lasix 40 mg BID -06/12/18: will held Lasix because of mild acute kidney injury, will transition patient to oral antibiotics of doxycycline and Keflex -06/13/18:Cellulitis of the bilateral legs have improved during hospital stay overall and patient should take prescribed cephalexin 500 mg QID (four times a day) and oral doxycyline 100 mg BID (twice a day) for 4 more days to complete the treatment of antibiotics Leg swelling of the bilateral legs have improved and to prevent acute kidney injury patient should take furosemide as 40 mg daily instead of twice a day which was patient's previous home dosing frequency acute kidney injury -held Lasix because of mild kidney injury on 06/12/18 -acute kidney injury has resolved as of 06/13/18 after IV fluids Hypertension -continue home dose lisinopril 40 mg daily Hypothyroidism -For hypothyroidism, continue taken home dose Levoythroxine 225 mcg every morning on Tuesday/Tuesday//Tuesday and 150 mcg every morning for Tuesday/Tuesday/Tuesday. Patient should follow up with primary care doctor to repeat TSH and T4 levels in 2 weeks other cardiovascular continue home dose simvastatin Ambulatory dysfunction -physical and occupational therapy assessments -occupational therapy at this time recommends nursing home facility -Patient is to be discharge to [facility] Acute gout of left hand -started prednisone 40 mg daily on 06/11/18, continued 40 mg prednisone up to 06/13/18 for now -patient should take 400 mg every 8 hours of ibuprofen as needed for pain as prescribed. Also to take prednisone 20 mg daily for 5 more days starting on 06/14/18 Full Code Status [phone] Discharge Diagnosis Cellulitis of both lower extremities, Hypothyroidism, Hypertension, Acute gout of left hand, Acute Kidney injury (resolved), Ambulatory dysfunction Discharge Instructions Patient is to be discharge to [facility] Cellulitis of the bilateral legs have improved during hospital stay: take prescribed cephalexin 500 mg QID (four times a day) and oral doxycyline 100 mg BID (twice a day) for 4 more days to complete the treatment of antibiotics Leg swelling of the bilateral legs have improved: to prevent acute kidney injury: take furosemide as 40 mg daily instead of twice a day which was patient's previous home dosing frequency For gout: patient should take 400 mg every 8 hours of ibuprofen as needed for pain as prescribed. Also to take prednisone 20 mg daily for 5 more days starting on 06/14/18 For hypothyroidism, continue taken home dose Levoythroxine 225 mcg every morning on Tuesday/Tuesday//Tuesday and 150 mcg every morning for Tuesday/Tuesday/Tuesday. Patient should follow up with primary care doctor to repeat TSH and T4 levels in 2 weeks Total Time Total Time Spent Total Time Spent (In Minutes): 40 minutes Total Time Includes: Examination of the Patient, Discharge Planning and Medication Reconciliation Discharge Plan Discharge Items Patient Disposition: Transfer Custodial [facility] Reason For Visit: CELLULITIS OF LOWER EXTREMITIES Discharge Diagnosis: Cellulitis of both lower extremities, Hypothyroidism, Hypertension, Acute gout of left hand, Acute Kidney injury (resolved), Ambulatory dysfunction Condition: Good Discharge Goals: Improve disease control Activity: Resume your previous activity Non-emergency contact: Primary Care Provider Call non-emergency contact if: you have any medication questions Follow-up/Referrals: John Sargent [Primary Care Provider] - Diet: Heart Healthy Addtl Provider Instructions: Patient is to be discharge to [facility] Cellulitis of the bilateral legs have improved during hospital stay: take prescribed cephalexin 500 mg QID (four times a day) and oral doxycyline 100 mg BID (twice a day) for 4 more days to complete the treatment of antibiotics Leg swelling of the bilateral legs have improved: to prevent acute kidney injury: take furosemide as 40 mg daily instead of twice a day which was patient's previous home dosing frequency For gout: patient should take 400 mg every 8 hours of ibuprofen as needed for pain as prescribed. Also to take prednisone 20 mg daily for 5 more days starting on 06/14/18 For hypothyroidism, continue taken home dose Levoythroxine 225 mcg every morning on Tuesday/Tuesday//Tuesday and 150 mcg every morning for Tuesday/Tuesday/Tuesday. Patient should follow up with primary care doctor to repeat TSH and T4 levels in 2 weeks Prescriptions: New levothyroxine [Synthroid] 150 mcg Tablet 150 mcg PO MoWeFr@30 30 Days Qty: 15 RF: 0 levothyroxine 150 mcg tablet 225 mcg PO SuTuThSa@0630 30 Days Qty: 15 RF: 0 furosemide 40 mg Tablet 40 mg PO QAM 30 Days Qty: 30 RF: 0 doxycycline hyclate 100 mg Capsule 100 mg PO BID 4 Days Qty: 8 RF: 0 cephalexin 500 mg Capsule 500 mg PO QID 4 Days Qty: 16 RF: 0 ibuprofen [IBU] 400 mg tablet 400 mg PO Q8H PRN (Reason: pain) 5 Days Qty: 15 RF: 0 prednisone 20 mg tablet 20 mg PO DAILY 5 Days Qty: 5 RF: 0 Continued cyanocobalamin (vitamin B-12) [Vitamin B-12] 1,000 mcg Tablet 1,000 mcg PO QPM RF: 0 simvastatin 20 mg tablet 20 mg PO QPM RF: 0 lisinopril 40 mg tablet 40 mg PO QPM RF: 0 cholecalciferol (vitamin D3) [Vitamin D3] 1,000 unit Tablet 1,000 units PO QPM RF: 0 Florastor 250 mg capsule 250 mg PO BID Qty: 20 RF: 0 Discontinued levothyroxine 150 mcg tablet 225 mcg PO 4XWK RF: 0 furosemide 40 mg tablet 40 mg PO BID RF: 0 ibuprofen 800 mg tablet 800 mg PO TID PRN (Reason: Pain) RF: 0 potassium chloride 10 mEq tablet extended release 10 meq PO QPM RF: 0 levothyroxine 150 mcg tablet 150 mcg PO 3XWK RF: 0 Stand-Alone Forms: [employer] Discharge Orders: Discharge Order (Routine); Ordered 06/13/18 Ordered By: Tavo Monsalve Skilled Items Patient informed of condition?: Yes DNR: No Discharge Level of Care: Skilled Communicable Disease: No Discharge Prognosis: Stable Admission Data Admit Date/Time: 06/07/18 18:06 Attending Provider: Tavo Monsalve Admit Provider: Tavo Monsalve Primary Care Provider: John Sargent Other Providers: Tavo Monsalve Service: Medical
[2018-06-14] MEDS ORDERED: FUROSEMIDE 40 MG TAB PO SCH (09:00)
== END 2018-06-13 13:00 | DRG 603 ==
LOC: ED 14:23 → 4W 18:06

== ENCOUNTER 2018-06-21 09:12 | Inpatient (IN) ==
[2018-06-21 09:53] LABS: Basophils # (auto) 0.01 K/uL (0-0.2); Basophils % (auto) 0.1 %; Eosinophils # (auto) 0.09 K/uL (0-0.5); Eosinophils % (auto) 0.8 %; Hematocrit (blood only) 42.2 % (42-52); Hemoglobin 12.9 g/dL (14.0-18.0); Immature Granulocytes # (auto) 0.04 K/uL (0.00-0.02); Immature Granulocytes % (auto) 0.3 %; Lymphocytes # (auto) 1.11 K/uL (1.2-3.4); Lymphocytes % (auto) 9.4 %; Mean Corpuscular Hgb Conc 30.6 g/dL (32-36); Mean Corpuscular Volume 96.3 fL (80-100); Mean Platelet Volume 9.1 fL (7.4-10.4); Monocytes # (auto) 1.28 K/uL (0.11-0.59); Monocytes % (auto) 10.8 %; Neutrophils # (auto) 9.29 K/uL (1.4-6.5); Neutrophils % (auto) 78.6 %; Platelet Count 363 K/uL (130-400); RDW Coefficient of Variation 14.7 % (11.5-14.5); RDW Standard Deviation 51.3 fL (36.4-46.3); Red Blood Count 4.38 M/uL (4.7-6.1); White Blood Count 11.82 K/uL (4.8-10.8)
[2018-06-21 09:56] LABS: Appearance Urine Clear (Clear); Bilirubin Urine Negative (Negative); Blood Urine Negative (Negative); Color Urine Yellow; Glucose Urine UA Negative (Negative); Ketones Urine Negative (Negative); Leukocyte Esterase Urine Negative (Negative); Nitrite Urine Negative (Negative); Protein Urine Negative (Negative); Specific Gravity Urine 1.021 (1.000-1.030); Urobilinogen Urine Negative (Negative)
--- NOTE | 2018-06-21 10:04 | XRay Report ---
XR chest 1V portable HISTORY: weakness COMPARISON: Chest 06/02/2018. FINDINGS: There are low lung volumes. No pneumothorax. The heart remains mildly enlarged. Perihilar i nterstitial and vascular thickening persists suggestive of mild congestive change. Bibasilar densitie s are also unchanged. IMPRESSION: 1. No change in the cardiomegaly with mild congestive change. 2. Low lung volumes with bibasilar densities. This may represent atelectasis or pneumonia. Electronically signed by: Tal Painting M.D. 06/21/2018 10:02 AM
[2018-06-21 10:10] LABS: Albumin Level 2.9 gm/dl (3.4-5.0); Calcium 8.7 mg/dl (8.5-10.1); Creatinine Clr Calc Pharmacy 100.6 ml/min; Est GFR (Non-African American) 68.1; Magnesium 2.6 mg/dl (1.8-2.4); Potassium 4.4 mmol/L (3.5-5.1)
[2018-06-21 10:21] LABS: Albumin Globulin Ratio 0.8 (0.9-2); Bilirubin,Total 0.2 mg/dl (0.2-1); Globulin 3.7 gm/dl (2.5-4.0); Total Protein 6.6 gm/dl (6.4-8.2); Troponin I 0.028 ng/ml (0-0.045)
[2018-06-21 10:33] LABS: HCO3 ABG 38 mmol/L (19-24); Oxygen Saturation ABG 99.1 % (90-95); PCO2 ABG 81 mmHg (35-46); PO2 ABG 171 mm/Hg (80-95); pH ABG 7.29 (7.35-7.45)
[2018-06-21 10:34] LABS: Allen Test Pos (Pos)
[2018-06-21 10:50] LABS: INR 1.1 (0.9-1.1)
--- NOTE | 2018-06-21 10:54 | CT Scan Report ---
HEAD CT NONCONTRAST CT DOSE: 691.05 mGy.cm HISTORY: confusion, dysarthria TECHNIQUE: Multiaxial CT images of the head were performed without the use of intravenous contrast. A utomated exposure control was utilized for this study. A dose lowering technique was utilized adheri ng to the principles of ALARA. Comparison: None. Findings: A 2 cm retention cyst/polyp within the right maxillary sinus. The calvarium and skull base are intact. There is no mass, hematoma, midline shift, acute infarct. White matter hypodensity is non specific but suggestive of microvascular ischemic change. The ventricles and sulci demonstrate mild a ge-related involutional changes. 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 Impression: No acute intracranial abnormality. Chronic changes as described above. Electronically signed by: Tal Painting M.D. 06/21/2018 10:52 AM
--- NOTE | 2018-06-21 12:16 | CT Scan Report ---
CT ANGIOGRAPHY OF THE CHEST, PULMONARY EMBOLUS PROTOCOL CLINICAL HISTORY: Shortness of breath. Evaluate for pulmonary embolus. COMPARISON STUDY: Chest CT March 01, 2017. Chest radiograph performed earlier today. TECHNIQUE: Following IV administration of 120 mL of Optiray-320, helical axial images of the chest we re obtained utilizing the pulmonary embolus protocol. Maximal intensity projections and sagittal and coronal reformats were viewed on an independent 3D workstation. IV contrast was administered withou t complication. Automated exposure control was utilized for the study. A dose lowering technique wa s utilized adhering to the principles of ALARA. CT DOSE: 640.99 mGy.cm FINDINGS: No pulmonary emboli are identified although this exam is moderately compromised by respira tory motion artifact. There is mild dilatation of the central pulmonary arteries. The heart is modera tely enlarged. There is no pericardial effusion. Low lung volumes are noted. There is no pneumothorax . There may be trace bilateral pleural effusions. Lungs are suboptimally assessed given respiratory m otion. Groundglass opacities within the lungs are noted. The central airways are patent. Bony thorax is unremarkable. A few hepatic lesions are low attenuation are unchanged since CT of March 01 7. These favor cysts. There is no thoracic lymphadenopathy. Marked muscular atrophy is noted. IMPRESSION: 1. No pulmonary emboli identified although exam moderately compromised by respiratory motion artifact . 2. Groundglass opacities within the lungs which favor atelectasis although mild pulmonary edema could appear similar. 3. Dilatation of the central pulmonary arteries which raises the possibility of pulmonary arterial hy pertension. 4. Moderate cardiomegaly. 5. Marked muscular atrophy. Electronically signed by: Octavio Castanon M.D. 06/21/2018 12:15 PM
[2018-06-21 12:23] LABS: HCO3 ABG 37 mmol/L (19-24); Oxygen Saturation ABG 95.5 % (90-95); PCO2 ABG 92 mmHg (35-46); PO2 ABG 91 mm/Hg (80-95); pH ABG 7.22 (7.35-7.45)
[2018-06-21 12:25] LABS: Allen Test Pos (Pos)
[2018-06-21] MEDS ORDERED: FUROSEMIDE 40 MG/4 ML VIAL IV STA (13:40)
[2018-06-21 14:23] LABS: HCO3 ABG 39 mmol/L (19-24); Oxygen Saturation ABG 93.9 % (90-95); PCO2 ABG 93 mmHg (35-46); PO2 ABG 78 mm/Hg (80-95); pH ABG 7.24 (7.35-7.45)
[2018-06-21 14:24] LABS: Allen Test Pos (Pos)
--- NOTE | 2018-06-21 14:55 | Emergency Department Note ---
Entered by Sarahi Xavier acting as a scribe for History of Present Illness General Chief complaint: Weakness Time Seen by Provider: 06/21/18 09:29 Source: patient History of Present Illness Provider complaint: weakness Onset (ago): day(s) (this morning) Location: left and right Pain Consistency: + other (episode) Quality: + other (slurred speech, confusion) Associated symptoms: + other (shortness of breath) The patient is a 77 year old white male w/ PMHx of HTN, HLD, gout who presents to the ED w/ CC of an episode of slurred speech and confusion beginning this morning. His daughter states she noticed his speech was unusual and he was weak when she went to visit him at his [facility] this morning. She reports the patient was more difficult to rouse than usual and was unsure who she was. The daughter notes his last known well time was last night. She reports the patient was on oxygen when she arrived, and he does not usually wear oxygen. The daughter states he has had recent exertional shortness of breath. She reports he had recent fluid buildup, that has improved significantly following treatment with LASIX. Home Medications Home Medications Medication Instructions Recorded Confirmed Type Florastor 250 mg PO BID #20 cap 06/02/18 06/21/18 Rx cholecalciferol (vitamin D3) 1,000 units PO QPM 06/02/18 06/21/18 History [Vitamin D3] cyanocobalamin (vitamin B-12) 1,000 mcg PO QPM 06/02/18 06/21/18 History [Vitamin B-12] lisinopril 40 mg PO QPM 06/02/18 06/21/18 History simvastatin 20 mg PO QPM 06/02/18 06/21/18 History furosemide 40 mg PO QAM 30 Days #30 tab 06/13/18 06/21/18 Rx levothyroxine 225 mcg PO SuTuThSa@0630 30 Days 06/13/18 06/21/18 Rx #15 tab levothyroxine [Synthroid] 150 mcg PO MoWeFr@0630 30 Days #15 06/13/18 06/21/18 Rx tab Allergies Allergy/AdvReac Type Severity Reaction Status Date / Time No Known Allergies Allergy Verified 06/07/18 17:05 Past Med/Surg History Medical History Gout (Resolved) HLD (hyperlipidemia) HTN (hypertension) Cellulitis No significant past surgical history Family History Other No significant family history Social History Preferred Language: Chinese Communication Ability: Effective Beliefs That Will Affect Care: None marital status: Current Living Situation: Spouse current occupational status: retired Feels Safe at Home: Yes Smoking Status: Never smoker Hx Alcohol Use: No Hx Substance Use: No Review of Systems See HPI for pertinent positives & negatives. and A total of 10 systems reviewed and were otherwise negative Physical Exam Vital Signs Vital Signs - 24 hr 06/21/18 09:01 06/21/18 09:05 06/21/18 09:30 Temperature 36.5 C Temperature Source Oral Sepsis Recent Fever Within 48 Hours No Sepsis New/Unexplained Change in Mental Status No Sepsis Action Taken by Nursing No Action Required Pulse Rate 80 Pulse Rate [Apical] 73 Pulse Rate from SpO2 Sensor Respiratory Rate 20 20 Respiratory Effort / Characteristics Respiratory Depth Normal Respiratory Pattern Blood Pressure 138/75 Blood Pressure [Right Arm] 150/82 H Blood Pressure Mean 96 Blood Pressure Mean [Right Arm] 104 Blood Pressure Position [Right Arm] Sitting Pulse Oximetry 82 L 82 L 93 Oxygen Delivery Method Room Air Room Air Oxymask Oxygen Flow Rate 0 6 Fraction of Inspired Oxygen 06/21/18 09:53 06/21/18 10:36 06/21/18 11:00 Temperature Temperature Source Sepsis Recent Fever Within 48 Hours Sepsis New/Unexplained Change in Mental Status Sepsis Action Taken by Nursing Pulse Rate 72 61 Pulse Rate [Apical] 58 L Pulse Rate from SpO2 Sensor 61 Respiratory Rate 24 24 24 Respiratory Effort / Characteristics Non-Labored Spontaneous Respiratory Depth Normal Respiratory Pattern Tachypnea Blood Pressure Blood Pressure [Right Arm] 132/67 Blood Pressure Mean Blood Pressure Mean [Right Arm] 88 Blood Pressure Position [Right Arm] Sitting Pulse Oximetry 92 91 92 Oxygen Delivery Method Oxygen Flow Rate Fraction of Inspired Oxygen 60 06/21/18 11:01 06/21/18 11:30 06/21/18 11:31 Temperature Temperature Source Sepsis Recent Fever Within 48 Hours Sepsis New/Unexplained Change in Mental Status Sepsis Action Taken by Nursing Pulse Rate 61 64 61 Pulse Rate [Apical] Pulse Rate from SpO2 Sensor 60 64 Respiratory Rate 21 22 18 Respiratory Effort / Characteristics Respiratory Depth Respiratory Pattern Blood Pressure 134/71 130/80 Blood Pressure [Right Arm] Blood Pressure Mean 92 96 Blood Pressure Mean [Right Arm] Blood Pressure Position [Right Arm] Pulse Oximetry 91 94 Oxygen Delivery Method Oxygen Flow Rate Fraction of Inspired Oxygen 06/21/18 12:07 06/21/18 12:08 06/21/18 12:26 Temperature Temperature Source Sepsis Recent Fever Within 48 Hours Sepsis New/Unexplained Change in Mental Status Sepsis Action Taken by Nursing Pulse Rate 78 76 71 Pulse Rate [Apical] Pulse Rate from SpO2 Sensor 72 Respiratory Rate 21 24 23 Respiratory Effort / Characteristics Non-Labored Spontaneous Respiratory Depth Normal Respiratory Pattern Regular Blood Pressure 125/71 Blood Pressure [Right Arm] Blood Pressure Mean 89 Blood Pressure Mean [Right Arm] Blood Pressure Position [Right Arm] Pulse Oximetry 92 94 Oxygen Delivery Method Oxygen Flow Rate Fraction of Inspired Oxygen 60 06/21/18 12:30 06/21/18 12:31 06/21/18 13:00 Temperature Temperature Source Sepsis Recent Fever Within 48 Hours Sepsis New/Unexplained Change in Mental Status Sepsis Action Taken by Nursing Pulse Rate 72 70 75 Pulse Rate [Apical] Pulse Rate from SpO2 Sensor 73 72 69 Respiratory Rate 23 23 25 H Respiratory Effort / Characteristics Respiratory Depth Respiratory Pattern Blood Pressure 118/63 Blood Pressure [Right Arm] Blood Pressure Mean 81 Blood Pressure Mean [Right Arm] Blood Pressure Position [Right Arm] Pulse Oximetry 93 94 95 Oxygen Delivery Method Oxygen Flow Rate Fraction of Inspired Oxygen 06/21/18 13:01 06/21/18 13:30 06/21/18 13:31 Temperature Temperature Source Sepsis Recent Fever Within 48 Hours Sepsis New/Unexplained Change in Mental Status Sepsis Action Taken by Nursing Pulse Rate 71 77 75 Pulse Rate [Apical] Pulse Rate from SpO2 Sensor 71 75 74 Respiratory Rate 22 29 H 23 Respiratory Effort / Characteristics Respiratory Depth Respiratory Pattern Blood Pressure 141/72 H 129/81 Blood Pressure [Right Arm] Blood Pressure Mean 95 97 Blood Pressure Mean [Right Arm] Blood Pressure Position [Right Arm] Pulse Oximetry 96 95 95 Oxygen Delivery Method Oxygen Flow Rate Fraction of Inspired Oxygen 06/21/18 14:00 06/21/18 14:01 06/21/18 14:30 Temperature Temperature Source Sepsis Recent Fever Within 48 Hours Sepsis New/Unexplained Change in Mental Status Sepsis Action Taken by Nursing Pulse Rate 71 61 58 L Pulse Rate [Apical] Pulse Rate from SpO2 Sensor 66 65 62 Respiratory Rate 23 23 19 Respiratory Effort / Characteristics Respiratory Depth Respiratory Pattern Blood Pressure 146/77 H Blood Pressure [Right Arm] Blood Pressure Mean 100 Blood Pressure Mean [Right Arm] Blood Pressure Position [Right Arm] Pulse Oximetry 96 93 95 Oxygen Delivery Method Oxygen Flow Rate Fraction of Inspired Oxygen 06/21/18 14:31 Temperature Temperature Source Sepsis Recent Fever Within 48 Hours Sepsis New/Unexplained Change in Mental Status Sepsis Action Taken by Nursing Pulse Rate 60 Pulse Rate [Apical] Pulse Rate from SpO2 Sensor 63 Respiratory Rate 20 Respiratory Effort / Characteristics Respiratory Depth Respiratory Pattern Blood Pressure 124/74 Blood Pressure [Right Arm] Blood Pressure Mean 90 Blood Pressure Mean [Right Arm] Blood Pressure Position [Right Arm] Pulse Oximetry 92 Oxygen Delivery Method Oxygen Flow Rate Fraction of Inspired Oxygen GENERAL: Moderate distress. Mildly somnolent. Tachypnea, shallow breaths. EYE EXAM: Normal conjunctiva. PERRL, no anisocoria and EOM's grossly intact w/o pain. OROPHARYNX: Moist MM. NECK: Supple, no nuchal rigidity, no adenopathy, non-tender. No signs of meningismus. LUNGS: Clear to auscultation. Normal chest wall mechanics. HEART: NSR, no MRG. ABDOMEN: Abdomen soft, non-tender, normo-active bowel sounds, no masses, no rebound or guarding. BACK: No CVA TTP. SKIN: Some blanching erythema, bilateral lower extremities. UPPER EXTREMITIES: Upper extremities are grossly normal. LOWER EXTREMITIES: No calf pain. Symmetric, 2+ lower extremity edema. Mild blanching erythema, no calor. No blistering/bullae. NEURO EXAM: Easily arousable, opens eyes to voice, follows commands, 4/5 strength lower extremities, 5/5 strength upper extremities, no sensory deficits. Course 0932: Past medical records reviewed. The patient was evaluated in room A10, and a complete history and physical examination were performed. 1014: Upon reevaluation, the patient looks better on BiPAP. 1116: I reviewed the patient's case with Moon Ferguson PA-C, [facility] hospitalist. She will evaluate the patient for further management. 1121: Upon reevaluation, the patient is resting. I discussed test results with the patient and their family. They verbalized agreement with the treatment plan. Consultations Consultation #1: Moon Ferguson PA-C, [facility] hospitalist. Time: 11:16 Administered Medications Discontinued Medications Furosemide (Lasix) 40 mg IV NOW STA Stop: 06/21/18 13:41 Last Admin: 06/21/18 13:51 Dose: 40 mg Documented by: [id number] Medical Decision Making Medical Records Attestation: I reviewed the patient's medical records. Home Medications Current Medication List: was personally reviewed by me Laboratory Data Attestation: I reviewed the patient's lab results. Result diagrams: 06/21/18 08:53 06/21/18 08:53 Lab Results 06/21/18 06/21/18 06/21/18 Range/Units 08:53 08:53 08:53 WBC 11.82 H (4.8-10.8) K/uL RBC 4.38 L (4.7-6.1) M/uL Hgb 12.9 L (14.0-18.0) g/dL Hct 42.2 (42-52) % MCV 96.3 (80-100) fL MCH 29.5 (25-34) pg MCHC 30.6 L (32-36) g/dL RDW Std Deviation 51.3 H (36.4-46.3) fL RDW Coeff of Maximilian 14.7 H (11.5-14.5) % Plt Count 363 (130-400) K/uL MPV 9.1 (7.4-10.4) fL Immature Gran % (Auto) 0.3 % Neut % (Auto) 78.6 % Lymph % (Auto) 9.4 % [place] % (Auto) 10.8 % Eos % (Auto) 0.8 % Baso % (Auto) 0.1 % Immature Gran # (Auto) 0.04 H (0.00-0.02) K/uL Neut # (Auto) 9.29 H (1.4-6.5) K/uL Lymph # (Auto) 1.11 L (1.2-3.4) K/uL [place] # (Auto) 1.28 H (0.11-0.59) K/uL Eos # (Auto) 0.09 (0-0.5) K/uL Baso # (Auto) 0.01 (0-0.2) K/uL PT Cancelled INR Cancelled ABG pH (7.35-7.45) ABG pCO2 (35-46) mmHg ABG pO2 (80-95) mm/Hg ABG HCO3 (19-24) mmol/L ABG O2 Saturation (90-95) % ABG Base Excess (-9-1.8) mEq/L Matias Test (Pos) Barometric Pressure mm/Hg Oxygen Given Sodium 140 (136-145) mmol/L Potassium 4.4 (3.5-5.1) mmol/L Chloride 102 (98-107) mmol/L Carbon Dioxide 40 H (21-32) mmol/L Anion Gap -2.0 L (3-11) BUN 29 H (7-18) mg/dl Creatinine 1.05 (0.6-1.4) mg/dl Est Cr Clr Drug Dosing 100.6 ml/min Est GFR ( Amer) 79.0 Est GFR (Non-Af Amer) 68.1 BUN/Creatinine Ratio 28.0 H (10-20) Glucose 100 H (70-99) mg/dl Calcium 8.7 (8.5-10.1) mg/dl Magnesium 2.6 H (1.8-2.4) mg/dl Total Bilirubin 0.2 (0.2-1) mg/dl AST 12 L (15-37) U/L ALT 28 (12-78) U/L Alkaline Phosphatase 73 (45-117) U/L Troponin I 0.028 (0-0.045) ng/ml NT-Pro-B Natriuret Pep 412 (0-1800) pg/ml Total Protein 6.6 (6.4-8.2) gm/dl Albumin 2.9 L (3.4-5.0) gm/dl Globulin 3.7 (2.5-4.0) gm/dl Albumin/Globulin Ratio 0.8 L (0.9-2) TSH 3.350 (0.300-4.500) uIu/ml Urine Color Urine Appearance (Clear) Urine pH (4.5-7.5) Ur Specific Vulcan (1.000-1.030) Urine Protein (Negative) Urine Glucose (UA) (Negative) Urine Ketones (Negative) Urine Blood (Negative) Urine Nitrite (Negative) Urine Bilirubin (Negative) Urine Urobilinogen (Negative) Ur Leukocyte Esterase (Negative) 06/21/18 06/21/18 06/21/18 Range/Units 09:33 10:18 10:29 WBC (4.8-10.8) K/uL RBC (4.7-6.1) M/uL Hgb (14.0-18.0) g/dL Hct (42-52) % MCV (80-100) fL MCH (25-34) pg MCHC (32-36) g/dL RDW Std Deviation (36.4-46.3) fL RDW Coeff of Maximilian (11.5-14.5) % Plt Count (130-400) K/uL MPV (7.4-10.4) fL Immature Gran % (Auto) % Neut % (Auto) % Lymph % (Auto) % [place] % (Auto) % Eos % (Auto) % Baso % (Auto) % Immature Gran # (Auto) (0.00-0.02) K/uL Neut # (Auto) (1.4-6.5) K/uL Lymph # (Auto) (1.2-3.4) K/uL [place]ug[place] # (Auto) (0.11-0.59) K/uL Eos # (Auto) (0-0.5) K/uL Baso # (Auto) (0-0.2) K/uL PT 11.0 INR 1.1 ABG pH 7.29 L (7.35-7.45) ABG pCO2 81 H (35-46) mmHg ABG pO2 171 H (80-95) mm/Hg ABG HCO3 38 H (19-24) mmol/L ABG O2 Saturation 99.1 H (90-95) % ABG Base Excess 8.2 H (-9-1.8) mEq/L Matias Test Pos (Pos) Barometric Pressure 734.4 mm/Hg Oxygen Given 60% Sodium (136-145) mmol/L Potassium (3.5-5.1) mmol/L Chloride (98-107) mmol/L Carbon Dioxide (21-32) mmol/L Anion Gap (3-11) BUN (7-18) mg/dl Creatinine (0.6-1.4) mg/dl Est Cr Clr Drug Dosing ml/min Est GFR ( Amer) Est GFR (Non-Af Amer) BUN/Creatinine Ratio (10-20) Glucose (70-99) mg/dl Calcium (8.5-10.1) mg/dl Magnesium (1.8-2.4) mg/dl Total Bilirubin (0.2-1) mg/dl AST (15-37) U/L ALT (12-78) U/L Alkaline Phosphatase (45-117) U/L Troponin I (0-0.045) ng/ml NT-Pro-B Natriuret Pep (0-1800) pg/ml Total Protein (6.4-8.2) gm/dl Albumin (3.4-5.0) gm/dl Globulin (2.5-4.0) gm/dl Albumin/Globulin Ratio (0.9-2) TSH (0.300-4.500) uIu/ml Urine Color Yellow Urine Appearance Clear (Clear) Urine pH 5.0 (4.5-7.5) Ur Specific Vul[place] 1.021 (1.000-1.030) Urine Protein Negative (Negative) Urine Glucose (UA) Negative (Negative) Urine Ketones Negative (Negative) Urine Blood Negative (Negative) Urine Nitrite Negative (Negative) Urine Bilirubin Negative (Negative) Urine Urobilinogen Negative (Negative) Ur Leukocyte Esterase Negative (Negative) 06/21/18 06/21/18 Range/Units 12:07 14:08 WBC (4.8-10.8) K/uL RBC (4.7-6.1) M/uL Hgb (14.0-18.0) g/dL Hct (42-52) % MCV (80-100) fL MCH (25-34) pg MCHC (32-36) g/dL RDW Std Deviation (36.4-46.3) fL RDW Coeff of Maximilian (11.5-14.5) % Plt Count (130-400) K/uL MPV (7.4-10.4) fL Immature Gran % (Auto) % Neut % (Auto) % Lymph % (Auto) % [place]ug[place] % (Auto) % Eos % (Auto) % Baso % (Auto) % Immature Gran # (Auto) (0.00-0.02) K/uL Neut # (Auto) (1.4-6.5) K/uL Lymph # (Auto) (1.2-3.4) K/uL [place] # (Auto) (0.11-0.59) K/uL Eos # (Auto) (0-0.5) K/uL Baso # (Auto) (0-0.2) K/uL PT INR ABG pH 7.22 L 7.24 L (7.35-7.45) ABG pCO2 92 H 93 H (35-46) mmHg ABG pO2 91 78 L (80-95) mm/Hg ABG HCO3 37 H 39 H (19-24) mmol/L ABG O2 Saturation 95.5 H 93.9 (90-95) % ABG Base Excess 5.9 H 8.0 H (-9-1.8) mEq/L Matias Test Pos Pos (Pos) Barometric Pressure 734.5 734.1 mm/Hg Oxygen Given 60% 60% Sodium (136-145) mmol/L Potassium (3.5-5.1) mmol/L Chloride (98-107) mmol/L Carbon Dioxide (21-32) mmol/L Anion Gap (3-11) BUN (7-18) mg/dl Creatinine (0.6-1.4) mg/dl Est Cr Clr Drug Dosing ml/min Est GFR ( Amer) Est GFR (Non-Af Amer) BUN/Creatinine Ratio (10-20) Glucose (70-99) mg/dl Calcium (8.5-10.1) mg/dl Magnesium (1.8-2.4) mg/dl Total Bilirubin (0.2-1) mg/dl AST (15-37) U/L ALT (12-78) U/L Alkaline Phosphatase (45-117) U/L Troponin I (0-0.045) ng/ml NT-Pro-B Natriuret Pep (0-1800) pg/ml Total Protein (6.4-8.2) gm/dl Albumin (3.4-5.0) gm/dl Globulin (2.5-4.0) gm/dl Albumin/Globulin Ratio (0.9-2) TSH (0.300-4.500) uIu/ml Urine Color Urine Appearance (Clear) Urine pH (4.5-7.5) Ur Specific Vul[place] (1.000-1.030) Urine Protein (Negative) Urine Glucose (UA) (Negative) Urine Ketones (Negative) Urine Blood (Negative) Urine Nitrite (Negative) Urine Bilirubin (Negative) Urine Urobilinogen (Negative) Ur Leukocyte Esterase (Negative) Imaging Data Radiologist's Impression: Radiology results as stated below per my review and the radiologist's interpretation: CT ANGIOGRAPHY OF THE CHEST, PULMONARY EMBOLUS PROTOCOL CLINICAL HISTORY: Shortness of breath. Evaluate for pulmonary embolus. COMPARISON STUDY: Chest CT March 01, 2017. Chest radiograph performed earlier today. TECHNIQUE: Following IV administration of 120 mL of [id number]-320, helical axial images of the chest were obtained utilizing the pulmonary embolus protocol. Maximal intensity projections and sagittal and coronal reformats were viewed on an independent 3D workstation. IV contrast was administered without c omplication. Automated exposure control was utilized for the study. A dose lowering technique was utilized adhering to the principles of ALARA. CT DOSE: 640.99 mGy.cm FINDINGS: No pulmonary emboli are identified although this exam is moderately compromised by respiratory motion artifact. There is mild dilatation of the central pulmonary arteries. The heart is moderately enlarged. There is no pericardial effusion. Low lung volumes are noted. There is no pneumothorax. There may be trace bilateral pleural effusions. Lungs are suboptimally assessed given respiratory motion. Groundglass opacities within the lungs are noted. The central airways are patent. Bony thorax is unremarkable. A few hepatic lesions are low attenuation are unchanged since CT of March 01, 2017. These favor cysts. There is no thoracic lymphadenopathy. Marked muscular atrophy is noted. IMPRESSION: 1. No pulmonary emboli identified although exam moderately compromised by respiratory motion artifact. 2. Groundglass opacities within the lungs which favor atelectasis although mild pulmonary edema could appear similar. 3. Dilatation of the central pulmonary arteries which raises the possibility of pulmonary arterial hypertension. 4. Moderate cardiomegaly. 5. Marked muscular atrophy. Electronically signed by: Octavio Castanon M.D. 06/21/2018 12:15 PM XR chest 1V portable HISTORY: weakness COMPARISON: Chest 06/02/2018. FINDINGS: There are low lung volumes. No pneumothorax. The heart remains mildly enlarged. Perihilar interstitial and vascular thickening persists suggestive of mild congestive change. Bibasilar densities are also unchanged. IMPRESSION: 1. No change in the cardiomegaly with mild congestive change. 2. Low lung volumes with bibasilar densities. This may represent atelectasis or pneumonia. Electronically signed by: Tal Painting M.D. 06/21/2018 10:[address]AST CT DOSE: 691.05 mGy.cm HISTORY: confusion, dysarthria TECHNIQUE: Multiaxial CT images of the head were performed without the use of in travenous contrast. Automated exposure control was utilized for this study. A dose lowering technique was utilized adhering to the principles of ALARA. Comparison: None. Findings: A 2 cm retention cyst/polyp within the right maxillary sinus. The calvarium and skull base are intact. There is no mass, hematoma, midline shift, acute infarct. White matter hypodensity is nonspecific but suggestive of microvascular ischemic change. The ventricles and sulci demonstrate mild age- related involutional changes. 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 Impression: No acute intracranial abnormality. Chronic changes as described above. Electronically signed by: Tal Painting M.D. 06/21/2018 10:52 AM ECG Data Attestation: I personally reviewed and interpreted this ECG as follows: Indication: weakness Rate (beats per minute): 64 Rhythm: normal sinus Findings: + 1st degree AV block and + PVC (multiple); no ST depression and no ST elevation Blood Pressure Blood Pressure Findings: Normal blood pressure Blood Pressure Disposition: did not require urgent referral MDM Narrative The patient is a 77 year old white male w/ PMHx of HTN, HLD, gout who presents to the ED w/ CC of an episode of slurred speech and confusion beginning this morning. Etiologies such as infections, reactive airway disease, COPD, pneumonia, pleural effusion, pulmonary edema, ARDS, pneumothorax, CHF, cardiac ischemia, cardiac tamponade, dysrhythmia, anemia, pulmonary embolism, musculoskeletal, gastrointestinal process, as well as others were entertained. Patient was seen and evaluated the bedside. The patient does have a history of hypertension hyperlipidemia and gout. The patient did have recent initiation of diuresis given chronic fluid retention and associated cellulitis. The patient reportedly had been noted to have some slurred speech this morning around 8 AM. Last known well was last night. Per the family member at the bedside she did relate that the patient was started on O2 but does not use oxygen at baseline. The patient does have some mild dysarthria and does have some lower extremity weakness but this is apparently chronic. The patient is able to follow commands is easily arousable and oriented to person and place. I believe his dysarthria may be related more to hypoxia or potentially CO2 retention as the patient does appear tired. I did call for BiPAP immediately as I was concerned about the possibility of hypoxic respiratory failure and/or possible hypercapnia. Additional blood work EKG chest x-ray CT of the head and blood gas were obtained. I do not believe the patient is a TPA candidate at this time given last known well is greater than 10 hours. I did reassess the patient he looked much more comfortable on BiPAP and was maintained maintaining his oxygen saturation in the low 90s. Patient is a white count of 11. The patient's platelet count was normal. Patient does have some trace anemia at 12.9 hemoglobin. The patient's initial blood gas shows likely acute on chronic hypercapnia. Patient's PaO2 on supplemental oxygen is somewhat low but the patient is maintaining his oxygen saturations. I did order repeat for noon. The patient does appear improved at the bedside. The patient has fairly normal kidney function likely does have some chronic retention and associated RAIN given the patient's body habitus. Patient's bicarb is elevated which is a light likely acute on chronic. Patient's troponin is detectable but not elevated. I did speak the on-call hospitalist discussed in additional items with them stated that the patient would subsequently have repeat ABGs and a CT of the chest. Patient was admitted to the medicine service. The patient CT angios does not show any evidence of PE. Also patient's initial CT brain is negative acute. Impression & Plan Respiratory failure with hypoxia and hypercapnia Critical Care Time I have personally spent greater than 80 minutes of critical care time in the direct management of this patient. This includes bedside care, interpretation of diagnostic studies, and testing, discussion with consultants, patient, and family members, and other required patient management activities. This 80 minutes is in excess of all separately billable procedures. Critical Care Time: Yes Total Critical Care Time: 80 Discharge Plan Visit Data Chief Complaint: Weakness ED Provider: Asad Mckeon Discharge Problem: Respiratory failure with hypoxia and hypercapnia Patient Disposition: Being Evaluated by Hospitalist Forms Stand Alone Forms: My [facility] [employer] Prescriptions Prescriptions: No Action levothyroxine [Synthroid] 150 mcg Tablet 150 mcg PO MoWeFr@0630 30 Days Qty: 15 RF: 0 levothyroxine 150 mcg tablet 225 mcg PO SuTuThSa@0630 30 Days Qty: 15 RF: 0 furosemide 40 mg Tablet 40 mg PO QAM 30 Days Qty: 30 RF: 0 cyanocobalamin (vitamin B-12) [Vitamin B-12] 1,000 mcg Tablet 1,000 mcg PO QPM RF: 0 simvastatin 20 mg tablet 20 mg PO QPM RF: 0 lisinopril 40 mg tablet 40 mg PO QPM RF: 0 cholecalciferol (vitamin D3) [Vitamin D3] 1,000 unit Tablet 1,000 units PO QPM RF: 0 Florastor 250 mg capsule 250 mg PO BID Qty: 20 RF: 0 Referrals Referrals: Xiomy Carbajal [Primary Care Provider] - Discharge Problem: Respiratory failure with hypoxia and hypercapnia Qualifiers: Chronicity: acute on chronic Qualified Code(s): J96.21 - Acute and chronic respiratory failure with hypoxia The scribe's documentation has been prepared under my direction and personally reviewed by me in its entirety. I confirm that the note above accurately reflects all work, treatment, procedures, and medical decision making performed by me.
[2018-06-21] MEDS ORDERED: FUROSEMIDE 40 MG in SYRINGE 0 ML IV ONE (15:23)
--- NOTE | 2018-06-21 15:23 | Critical Care Consultation ---
Date of Consultation June 21, 2018 Assessment & Plan (1) Admitted to intensive care unit: Reason Critically Ill: 77-year-old male with acute on chronic hypercapnic respiratory failure PLAN: Neuro: Acute encephalopathy: Resolved -Reviewed CT head radiology report Resp: Acute hypercapnic respiratory failure: Likely multifactorial -Patient has never been evaluated by pulmonary physician -Likely baseline pulmonary hypertension -Echo pending -Suspect COPD changes: Occupational metal fume exposures Groundglass opacities on CT -Suspect volume overload/component of CHF CV: Possible cardiomyopathy -Aggressive diuresis -Daughter reports patient previously 35 pounds down on previous admission -Daughter reports patient has gained approximately 100 pounds over 18 months roughly Fluids/Renal: Elevated bicarbonate -Compensatory changes for chronic hypercarbic respiratory failure ID: Blood cultures pending -Patient recently treated antibiotic course for cellulitis -Daughter reports he ran course of doxycycline -Procalcitonin negative -Holding antibiotics at this time GI/Nutrition: Morbid obesity Hypoalbuminemia: Mild Heme: Anemia of chronic disease DVT prophylaxis: Increased heparin DVT prophylaxis a 7500 3 times daily given morbid obesity Endocrine: ICU hyperglycemia protocol Follow-up hemoglobin A1c -Family reports significant dietary indiscretion with cookies, cakes, donuts particularly coconut macular wounds and significant fluid intake Vascular access: Peripheral IVs Code Status: DO NOT RESUSCITATE in event of cardiac arrest, patient okay with intubation for respiratory insufficiency. I have personally spent 55 minutes of critical care time in the direct management of this patient. This is a life/limb threatening event. This includes time spent evaluating patient, direct bedside care, chart review, placing orders, interpretation of diagnostic studies, discussion with consultants, patient, and/or family members regarding treatment decisions, as well as other required patient management activities. This time is exclusive of all separately billable procedures, and teaching time and separate from and in addition to any other critical care service time. Present on Admission?: Yes History of Present Illness Reason for Consultation: Hypercarbic respiratory failure. Patient was recently admitted at [facility] and diagnosed with bilateral cellulitis. He was ultimately discharged to rehab secondary to generalized weakness and ambulatory difficulty. Today at the rehab facility his daughter who is a nurse on the third floor reported that he was rather somnolent and was concerned about hypercarbic respiratory failure. He was sent in to the emergency department for further evaluation. He was found to be rather hypercarbic and started on BiPAP ventilation. He did improve with the noninvasive ventilator from a mental status standpoint. It is noted that his blood gas was largely unchanged. Allergies Allergy/AdvReac Type Severity Reaction Status Date / Time No Known Allergies Allergy Verified 06/07/18 17:05 Home Medications Home Medications Medication Instructions Recorded Confirmed Type Florastor 250 mg PO BID #20 cap 06/02/18 06/21/18 Rx cholecalciferol (vitamin D3) 1,000 units PO QPM 06/02/18 06/21/18 History [Vitamin D3] cyanocobalamin (vitamin B-12) 1,000 mcg PO QPM 06/02/18 06/21/18 History [Vitamin B-12] lisinopril 40 mg PO QPM 06/02/18 06/21/18 History simvastatin 20 mg PO QPM 06/02/18 06/21/18 History furosemide 40 mg PO QAM 30 Days #30 tab 06/13/18 06/21/18 Rx levothyroxine 225 mcg PO SuTuThSa@0630 30 Days 06/13/18 06/21/18 Rx #15 tab levothyroxine [Synthroid] 150 mcg PO MoWeFr@0630 30 Days #15 06/13/18 06/21/18 Rx tab Patient History Medical History Obesity (Chronic) Venous insufficiency (Chronic) Hypothyroidism (Chronic) Dyslipidemia (Chronic) HTN (hypertension) (Chronic) Gout (Chronic) Cellulitis No significant past surgical history Family History Father Hypertension Mother Lung cancer Other No significant family history Social History Preferred Language: Pashto Communication Ability: Effective Management Trainee Required: No Beliefs That Will Affect Care: None marital status: Current Living Situation: Longterm and Rehab current occupational status: retired Other Information That Helps Us Care for You: No Feels Safe at Home: Yes Safety Concerns: Feels Safe At This Time Smoking Status: Never smoker Do You Dip or Chew Tobacco: No Second Hand Exposure: No Tobacco Cessation Education Requested by Patient: No Hx Alcohol Use: No Hx Substance Use: No Review of Systems Review of Systems: Patient denied chest pain there was exertional dyspnea. He does admit to increase lower extremity edema. Physical Exam Physical Exam: General: A obese elderly male who appears his stated age I have reviewed the recorded vital signs Neurological: RASS score: 0, Moves all 4 extremities, Psychological: GCS 15 following complex commands Eyes: Pupils are equal, round and reactive to light, anicteric sclera. Symmetrical lids. HENT: Oropharynx is clear, Javi membranes are moist. Neck: Supple. Symmetric. trachea midline. No thyromegaly. [CVL] Cardiovascular: Normal peripheral perfusion. Distal pulses and capillary refill intact. No JVD. Respiratory: Respirations are non-labored, no accessory muscle use. Distant breath sounds Gastrointestinal: Soft. Non-distended. Rotund Lymphatic: No cervical lymphadenopathy. Musculoskeletal: No deformity. 3+ pitting edema, Skin: Changes consistent with venous stasis of the lower extremities Results & Data Vital Signs (Past 12 Hours) Vital Signs Temp Pulse Pulse Resp BP BP Pulse Ox 06/21/18 15:01 62 24 143/84 H 93 06/21/18 15:00 67 24 95 06/21/18 14:31 60 20 124/74 92 06/21/18 14:30 58 L 19 95 06/21/18 14:01 61 23 146/77 H 93 06/21/18 14:00 71 23 96 06/21/18 13:31 75 23 129/81 95 06/21/18 13:30 77 29 H 95 06/21/18 13:01 71 22 141/72 H 96 06/21/18 13:00 75 25 H 95 06/21/18 12:31 70 23 118/63 94 06/21/18 12:30 72 23 93 06/21/18 12:26 71 23 125/71 94 06/21/18 12:08 76 24 06/21/18 12:07 78 21 92 06/21/18 11:31 61 18 130/80 06/21/18 11:30 64 22 94 06/21/18 11:01 61 21 134/71 91 06/21/18 11:00 61 24 92 06/21/18 10:36 58 L 24 132/67 91 06/21/18 09:53 72 24 92 06/21/18 09:30 73 20 150/82 H 93 06/21/18 09:05 82 L 06/21/18 09:01 36.5 C 80 20 138/75 82 L Laboratory Results 06/21/18 06/21/18 06/21/18 Range/Units 17:27 17:27 16:38 WBC (4.8-10.8) K/uL RBC (4.7-6.1) M/uL Hgb (14.0-18.0) g/dL Hct (42-52) % MCV (80-100) fL MCH (25-34) pg MCHC (32-36) g/dL RDW Std Deviation (36.4-46.3) fL RDW Coeff of Maximilian (11.5-14.5) % Plt Count (130-400) K/uL MPV (7.4-10.4) fL Immature Gran % (Auto) % Neut % (Auto) % Lymph % (Auto) % Kimball % (Auto) % Eos % (Auto) % Baso % (Auto) % Immature Gran # (Auto) (0.00-0.02) K/uL Neut # (Auto) (1.4-6.5) K/uL Lymph # (Auto) (1.2-3.4) K/uL Kimball # (Auto) (0.11-0.59) K/uL Eos # (Auto) (0-0.5) K/uL Baso # (Auto) (0-0.2) K/uL PT INR ABG pH (7.35-7.45) ABG pCO2 (35-46) mmHg ABG pO2 (80-95) mm/Hg ABG HCO3 (19-24) mmol/L ABG O2 Saturation (90-95) % ABG Base Excess (-9-1.8) mEq/L Matias Test (Pos) Barometric Pressure mm/Hg Oxygen Given Sodium (136-145) mmol/L Potassium (3.5-5.1) mmol/L Chloride (98-107) mmol/L Carbon Dioxide (21-32) mmol/L Anion Gap (3-11) BUN (7-18) mg/dl Creatinine (0.6-1.4) mg/dl Est Cr Clr Drug Dosing ml/min Est GFR ( Amer) Est GFR (Non-Af Amer) BUN/Creatinine Ratio (10-20) Glucose (70-99) mg/dl Lactate 0.9 (0.4-2.0) mmol/L Calcium (8.5-10.1) mg/dl Magnesium (1.8-2.4) mg/dl Total Bilirubin (0.2-1) mg/dl AST (15-37) U/L ALT (12-78) U/L Alkaline Phosphatase (45-117) U/L Troponin I (0-0.045) ng/ml NT-Pro-B Natriuret Pep (0-1800) pg/ml Total Protein (6.4-8.2) gm/dl Albumin (3.4-5.0) gm/dl Globulin (2.5-4.0) gm/dl Albumin/Globulin Ratio (0.9-2) Procalcitonin < 0.05 (0-0.5) ng/ml TSH (0.300-4.500) uIu/ml Urine Color Urine Appearance (Clear) Urine pH (4.5-7.5) Ur Specific [place] (1.000-1.030) Urine Protein (Negative) Urine Glucose (UA) (Negative) Urine Ketones (Negative) Urine Blood (Negative) Urine Nitrite (Negative) Urine Bilirubin (Negative) Urine Urobilinogen (Negative) Ur Leukocyte Esterase (Negative) Nasal Screen MRSA (PCR) Negative (Negative) 06/21/18 06/21/18 06/21/18 Range/Units 14:08 12:07 10:29 WBC (4.8-10.8) K/uL RBC (4.7-6.1) M/uL Hgb (14.0-18.0) g/dL Hct (42-52) % MCV (80-100) fL MCH (25-34) pg MCHC (32-36) g/dL RDW Std Deviation (36.4-46.3) fL RDW Coeff of Maximilian (11.5-14.5) % Plt Count (130-400) K/uL MPV (7.4-10.4) fL Immature Gran % (Auto) % Neut % (Auto) % Lymph % (Auto) % Kimball % (Auto) % Eos % (Auto) % Baso % (Auto) % Immature Gran # (Auto) (0.00-0.02) K/uL Neut # (Auto) (1.4-6.5) K/uL Lymph # (Auto) (1.2-3.4) K/uL Kimball # (Auto) (0.11-0.59) K/uL Eos # (Auto) (0-0.5) K/uL Baso # (Auto) (0-0.2) K/uL PT 11.0 INR 1.1 ABG pH 7.24 L 7.22 L (7.35-7.45) ABG pCO2 93 H 92 H (35-46) mmHg ABG pO2 78 L 91 (80-95) mm/Hg ABG HCO3 39 H 37 H (19-24) mmol/L ABG O2 Saturation 93.9 95.5 H (90-95) % ABG Base Excess 8.0 H 5.9 H (-9-1.8) mEq/L Matias Test Pos Pos (Pos) Barometric Pressure 734.1 734.5 mm/Hg Oxygen Given 60% 60% Sodium (136-145) mmol/L Potassium (3.5-5.1) mmol/L Chloride (98-107) mmol/L Carbon Dioxide (21-32) mmol/L Anion Gap (3-11) BUN (7-18) mg/dl Creatinine (0.6-1.4) mg/dl Est Cr Clr Drug Dosing ml/min Est GFR ( Amer) Est GFR (Non-Af Amer) BUN/Creatinine Ratio (10-20) Glucose (70-99) mg/dl Lactate (0.4-2.0) mmol/L Calcium (8.5-10.1) mg/dl Magnesium (1.8-2.4) mg/dl Total Bilirubin (0.2-1) mg/dl AST (15-37) U/L ALT (12-78) U/L Alkaline Phosphatase (45-117) U/L Troponin I (0-0.045) ng/ml NT-Pro-B Natriuret Pep (0-1800) pg/ml Total Protein (6.4-8.2) gm/dl Albumin (3.4-5.0) gm/dl Globulin (2.5-4.0) gm/dl Albumin/Globulin Ratio (0.9-2) Procalcitonin (0-0.5) ng/ml TSH (0.300-4.500) uIu/ml Urine Color Urine Appearance (Clear) Urine pH (4.5-7.5) Ur Specific [place] (1.000-1.030) Urine Protein (Negative) Urine Glucose (UA) (Negative) Urine Ketones (Negative) Urine Blood (Negative) Urine Nitrite (Negative) Urine Bilirubin (Negative) Urine Urobilinogen (Negative) Ur Leukocyte Esterase (Negative) Nasal Screen MRSA (PCR) (Negative) 06/21/18 06/21/18 06/21/18 Range/Units 10:18 09:33 08:53 WBC (4.8-10.8) K/uL RBC (4.7-6.1) M/uL Hgb (14.0-18.0) g/dL Hct (42-52) % MCV (80-100) fL MCH (25-34) pg MCHC (32-36) g/dL RDW Std Deviation (36.4-46.3) fL RDW Coeff of Maximilian (11.5-14.5) % Plt Count (130-400) K/uL MPV (7.4-10.4) fL Immature Gran % (Auto) % Neut % (Auto) % Lymph % (Auto) % Kimball % (Auto) % Eos % (Auto) % Baso % (Auto) % Immature Gran # (Auto) (0.00-0.02) K/uL Neut # (Auto) (1.4-6.5) K/uL Lymph # (Auto) (1.2-3.4) K/uL Kimball # (Auto) (0.11-0.59) K/uL Eos # (Auto) (0-0.5) K/uL Baso # (Auto) (0-0.2) K/uL PT INR ABG pH 7.29 L (7.35-7.45) ABG pCO2 81 H (35-46) mmHg ABG pO2 171 H (80-95) mm/Hg ABG HCO3 38 H (19-24) mmol/L ABG O2 Saturation 99.1 H (90-95) % ABG Base Excess 8.2 H (-9-1.8) mEq/L Matias Test Pos (Pos) Barometric Pressure 734.4 mm/Hg Oxygen Given 60% Sodium 140 (136-145) mmol/L Potassium 4.4 (3.5-5.1) mmol/L Chloride 102 (98-107) mmol/L Carbon Dioxide 40 H (21-32) mmol/L Anion Gap -2.0 L (3-11) BUN 29 H (7-18) mg/dl Creatinine 1.05 (0.6-1.4) mg/dl Est Cr Clr Drug Dosing 100.6 ml/min Est GFR ( Amer) 79.0 Est GFR (Non-Af Amer) 68.1 BUN/Creatinine Ratio 28.0 H (10-20) Glucose 100 H (70-99) mg/dl Lactate (0.4-2.0) mmol/L Calcium 8.7 (8.5-10.1) mg/dl Magnesium 2.6 H (1.8-2.4) mg/dl Total Bilirubin 0.2 (0.2-1) mg/dl AST 12 L (15-37) U/L ALT 28 (12-78) U/L Alkaline Phosphatase 73 (45-117) U/L Troponin I 0.028 (0-0.045) ng/ml NT-Pro-B Natriuret Pep 412 (0-1800) pg/ml Total Protein 6.6 (6.4-8.2) gm/dl Albumin 2.9 L (3.4-5.0) gm/dl Globulin 3.7 (2.5-4.0) gm/dl Albumin/Globulin Ratio 0.8 L (0.9-2) Procalcitonin (0-0.5) ng/ml TSH 3.350 (0.300-4.500) uIu/ml Urine Color Yellow Urine Appearance Clear (Clear) Urine pH 5.0 (4.5-7.5) Ur Specific [place] 1.021 (1.000-1.030) Urine Protein Negative (Negative) Urine Glucose (UA) Negative (Negative) Urine Ketones Negative (Negative) Urine Blood Negative (Negative) Urine Nitrite Negative (Negative) Urine Bilirubin Negative (Negative) Urine Urobilinogen Negative (Negative) Ur Leukocyte Esterase Negative (Negative) Nasal Screen MRSA (PCR) (Negative) 06/21/18 06/21/18 Range/Units 08:53 08:53 WBC 11.82 H (4.8-10.8) K/uL RBC 4.38 L (4.7-6.1) M/uL Hgb 12.9 L (14.0-18.0) g/dL Hct 42.2 (42-52) % MCV 96.3 (80-100) fL MCH 29.5 (25-34) pg MCHC 30.6 L (32-36) g/dL RDW Std Deviation 51.3 H (36.4-46.3) fL RDW Coeff of Maximilian 14.7 H (11.5-14.5) % Plt Count 363 (130-400) K/uL MPV 9.1 (7.4-10.4) fL Immature Gran % (Auto) 0.3 % Neut % (Auto) 78.6 % Lymph % (Auto) 9.4 % Kimball % (Auto) 10.8 % Eos % (Auto) 0.8 % Baso % (Auto) 0.1 % Immature Gran # (Auto) 0.04 H (0.00-0.02) K/uL Neut # (Auto) 9.29 H (1.4-6.5) K/uL Lymph # (Auto) 1.11 L (1.2-3.4) K/uL Kimball # (Auto) 1.28 H (0.11-0.59) K/uL Eos # (Auto) 0.09 (0-0.5) K/uL Baso # (Auto) 0.01 (0-0.2) K/uL PT Cancelled INR Cancelled ABG pH (7.35-7.45) ABG pCO2 (35-46) mmHg ABG pO2 (80-95) mm/Hg ABG HCO3 (19-24) mmol/L ABG O2 Saturation (90-95) % ABG Base Excess (-9-1.8) mEq/L Matias Test (Pos) Barometric Pressure mm/Hg Oxygen Given Sodium (136-145) mmol/L Potassium (3.5-5.1) mmol/L Chloride (98-107) mmol/L Carbon Dioxide (21-32) mmol/L Anion Gap (3-11) BUN (7-18) mg/dl Creatinine (0.6-1.4) mg/dl Est Cr Clr Drug Dosing ml/min Est GFR ( Amer) Est GFR (Non-Af Amer) BUN/Creatinine Ratio (10-20) Glucose (70-99) mg/dl Lactate (0.4-2.0) mmol/L Calcium (8.5-10.1) mg/dl Magnesium (1.8-2.4) mg/dl Total Bilirubin (0.2-1) mg/dl AST (15-37) U/L ALT (12-78) U/L Alkaline Phosphatase (45-117) U/L Troponin I (0-0.045) ng/ml NT-Pro-B Natriuret Pep (0-1800) pg/ml Total Protein (6.4-8.2) gm/dl Albumin (3.4-5.0) gm/dl Globulin (2.5-4.0) gm/dl Albumin/Globulin Ratio (0.9-2) Procalcitonin (0-0.5) ng/ml TSH (0.300-4.500) uIu/ml Urine Color Urine Appearance (Clear) Urine pH (4.5-7.5) Ur Specific [place] (1.000-1.030) Urine Protein (Negative) Urine Glucose (UA) (Negative) Urine Ketones (Negative) Urine Blood (Negative) Urine Nitrite (Negative) Urine Bilirubin (Negative) Urine Urobilinogen (Negative) Ur Leukocyte Esterase (Negative) Nasal Screen MRSA (PCR) (Negative) Diagnostic Findings I have reviewed the CT scan obtained today as well as the radiology report.
--- NOTE | 2018-06-21 15:50 | History & Physical Report ---
Date of Service June 21, 2018 Assessment & Plan (1) Respiratory failure with hypoxia and hypercapnia: Pt presented to ER for lethargy, dysarthria and new onset hypoxia reported occurred overnight Upon ER arrival pt noted to be hypoxic at 82% on RA and was placed on 6L oxymask with oxygen sat of 93%. Afebrile, P: 80, BP: 138/75, R: reported at 20. WBC: 11.8, CO2: 40 Initial ABG was obtained and pH: 7.29, pCO2: 81, pO2: 171, HCO3: 38 After being on bipap pt alert and oriented and not as lethargic. Serial ABG 2 hours after on bipap pH: 7.22, pCO2: 92, pO2: 91, HCO3: 37 and 4hours after on bipap: pH: 7.24, pCO2: 93, pO2: 78, HCO3: 39 CT HEAD: no acute changes CTA CHEST: 1. No pulmonary emboli identified although exam moderately compromised by respiratory motion artifact. 2. Groundglass opacities within the lungs which favor atelectasis although mild pulmonary edema could appear similar. 3. Dilatation of the central pulmonary arteries which raises the possibility of pulmonary arterial hypertension. 4. Moderate cardiomegaly. 5. Marked muscular atrophy. respiratory acidosis, hypoxia, hypercapnia DDX: fluid overload, pneumonia, obesity hypoventilation syndrome, underlying RAIN -continue bipap -npo while on bipap -pending lactic acid, procalcitonin, blood cultures -ICU admit for further evaluation and treatment -pt may require intubation -Lasix 40mg IV ordered -monitor cbc, bmp (2) Fluid overload: Reported pt with orthopnea past couple of weeks. Chronic BLE edema. On oral lasix . No known CHF history. Recent hospitalization pt was given IV Lasix for LE edema. Had LIZZ and was discharged on once daily Lasix instead of twice daily. -lasix 40mg IV given -echo -monitor I&O's -continue bipap (3) Hypothyroidism: TSH: 3.35 -convert levothyroxine to IV while npo (4) HTN (hypertension): BPs stable -hold oral lisinopril while npo -monitor BP (5) Dyslipidemia: -hold oral statin while npo (6) Cellulitis of both lower extremities: Pt with recent hospitalization on 06/07/18-06/13/18 for BLE cellulitis. Initially treated with vancomycin and zosyn then changed to Rocephin and doxycycline IV and was discharges on Keflex and doxycycline. (7) Obesity: BMI: 42. Pt with generalized weakness and limited mobility DVT Prophylaxis -heparin SQ Full Code as per discussion with pt and pt's and daughter Follows with Dr Sargent for routine care Pt was seen with Dr Guevara. See addendum History of Present Illness Chief Complaint: Lethargy Primary Care Provider: [facility] Pt is 77 y/o M with PMH HTN, dyslipidemia, hypothyroidism, gout, venous insufficiency presented to ER from [facility] for lethargy. It is reported pt was placed on oxygen last night at [facility]. Pt does not normally use oxygen. No known history of COPD/asthma, no reported tobacco use. Daughter reports that stopped in to see pt today and he was lethargic and she thought he may have had some dysarthria and he wasnt following commands well. He was sent to ER. It is reported that he hasnt been sleeping well at [facility], however daughter has noticed increased daytime lethargy and pt falling asleep during day even in conversation. Pts daughter reports that pt has needed to sleep in recliner for past couple of weeks. She reports pt has chronic cough. Denies any known fever/chills, N/V/D. Reports has been eating well however pt states doesn't like the food at [facility]. Pt with chronic lower leg weakness and right arm limited ROM. Has been using walker to ambulate recently. Denies urinary symptoms, palpitations, CP, dizziness, DUMAS, vision changes, palpitations, sore throat, choking, otalgia, rhinorrhea, abdominal pain, paresthesias. Pt with recent hospitalization on 06/07/18-06/13/18 for BLE cellulitis. He was initially placed on vancomycin and zosyn and then vancomycin was discontinued on 06/09/18. Had one out of two culture positive alpha strep that was determined to be contaminant. Antibiotics were changed to Rocephin and doxycycline IV on 06/10/18. Was given IV Lasix for LE edema. Had LIZZ and was discharged on once daily Lasix instead of twice daily. He had acute gout to left hand and was put on prednisone course. He was discharged on Keflex and doxycycline. Discharge to hospital for special care for rehab. Reports that legs look improved with less edema and redness Upon ER arrival pt noted to be hypoxic at 82% on RA and was placed on 6L oxymask with oxygen sat of 93%. ABG was obtained and pH: 7.29, pCO2: 81, pO2: 171, HCO3: 38 After being on bipap pt alert and not as lethargic. Allergies Allergy/AdvReac Type Severity Reaction Status Date / Time No Known Allergies Allergy Verified 06/07/18 17:05 Home Medications Home Medications Medication Instructions Recorded Confirmed Type Florastor 250 mg PO BID #20 cap 06/02/18 06/21/18 Rx cholecalciferol (vitamin D3) 1,000 units PO QPM 06/02/18 06/21/18 History [Vitamin D3] cyanocobalamin (vitamin B-12) 1,000 mcg PO QPM 06/02/18 06/21/18 History [Vitamin B-12] lisinopril 40 mg PO QPM 06/02/18 06/21/18 History simvastatin 20 mg PO QPM 06/02/18 06/21/18 History furosemide 40 mg PO QAM 30 Days #30 tab 06/13/18 06/21/18 Rx levothyroxine 225 mcg PO SuTuThSa@0630 30 Days 06/13/18 06/21/18 Rx #15 tab levothyroxine [Synthroid] 150 mcg PO MoWeFr@0630 30 Days #15 06/13/18 06/21/18 Rx tab Past Med/Surg History Medical History Obesity (Chronic) Venous insufficiency (Chronic) Hypothyroidism (Chronic) Dyslipidemia (Chronic) HTN (hypertension) (Chronic) Gout (Chronic) Cellulitis No significant past surgical history Family History Father Hypertension Mother Lung cancer Other No significant family history Social History Preferred Language: Albanian Communication Ability: Effective Online Marketing Director Required: No Beliefs That Will Affect Care: None marital status: Current Living Situation: [facility] current occupational status: retired Other Information That Helps Us Care for You: No Feels Safe at Home: Yes Safety Concerns: Feels Safe At This Time Smoking Status: Never smoker Do You Dip or Chew Tobacco: No Second Hand Exposure: No Tobacco Cessation Education Requested by Patient: No Hx Alcohol Use: No Hx Substance Use: No Review of Systems Review of Systems: All systems reviewed & are unremarkable except as noted in HPI & below Physical Exam Vital Signs (Past 24 Hours): Last Vital Signs Temp 36.5 C 06/21/18 09:01 Pulse 62 06/21/18 15:01 Resp 24 06/21/18 15:01 BP 143/84 H 06/21/18 15:01 Pulse Ox 93 06/21/18 15:01 Physical Exam: General: Currently on bipap and not in respiratory distress, obese Head: normocephalic, atraumatic Eyes: PERRL, EOM's intact, conjunctiva non-injected, anicteric ENT: normal inspection external ears, nose, mucous membranes moist Neck: supple, trachea midline Lungs: currently on bipap without retractions, R: 22, +course breath sounds throughout CV: RRR, no murmur, no JVD Abd: normal BS, soft, non-tender Ext: BLE with 2+edema, erythema, dry flaking skin; limited ROM bilateral lower legs which reported as chronic, bilateral leg weakness, bilateral pedal pulls and pushes intact, limited flexion R elbow reported as chronic, bilateral motor driver strength equal Neuro: A&O x 3 at this time, mildly lethargic, no slurred speech, bilateral eyebrow raise intact, tongue midline, normal affect Skin: warm, dry, legs as above Results & Data Laboratory Results Short CBC 06/21/18 Range/Units 08:53 WBC 11.82 H (4.8-10.8) K/uL Hgb 12.9 L (14.0-18.0) g/dL Hct 42.2 (42-52) % Plt Count 363 (130-400) K/uL BMP 06/21/18 08:53 Sodium 140 Potassium 4.4 Chloride 102 Carbon Dioxide 40 H BUN 29 H Creatinine 1.05 Glucose 100 H Calcium 8.7 Cardiac Enzymes 06/21/18 Range/Units 08:53 Troponin I 0.028 (0-0.045) ng/ml Liver Function 06/21/18 Range/Units 08:53 Total Bilirubin 0.2 (0.2-1) mg/dl AST 12 L (15-37) U/L ALT 28 (12-78) U/L Alkaline Phosphatase 73 (45-117) U/L Albumin 2.9 L (3.4-5.0) gm/dl Urine 06/21/18 Range/Units 09:33 Urine Color Yellow Urine Appearance Clear (Clear) Urine pH 5.0 (4.5-7.5) Ur Specific [place] 1.021 (1.000-1.030) Urine Protein Negative (Negative) Urine Glucose (UA) Negative (Negative) Diagnostic Findings CT HEAD: Impression: No acute intracranial abnormality. Chronic changes as described above. CXR: IMPRESSION: 1. No change in the cardiomegaly with mild congestive change. 2. Low lung volumes with bibasilar densities. This may represent atelectasis or pneumonia. CTA CHEST: IMPRESSION: 1. No pulmonary emboli identified although exam moderately compromised by respiratory motion artifact. 2. Groundglass opacities within the lungs which favor atelectasis although mild pulmonary edema could appear similar. 3. Dilatation of the central pulmonary arteries which raises the possibility of pulmonary arterial hypertension. 4. Moderate cardiomegaly. 5. Marked muscular atrophy. Supervising Physician Co-Signing Physician Notes Patient is a 77-year-old male with multiple problems presents with history of lethargy since 2 weeks, hypoxia requiring supplemental oxygen to maintain Sats. Please review HPI for complete details of presentation. In ED patient was noted to be hypoxic at 82% on room air. His ABG suggestive of respiratory acidosis with metabolic alkalosis. CTA showed no PE, groundglass opacities, mild pulmonary edema and findings suggestive of pulmonary artery hypertension. Patient was noted to have a white count of 11.8 K. Normal lactic acid and procalcitonin levels. Received Lasix in ED. Placed on BiPAP for respiratory failure. Patient is admitted in ICU for possible intubation and further management. Could have underlying COPD, obstructive sleep apnea. On exam patient is obese, no apparent distress, normocephalic atraumatic, bilateral coarse breath sounds, no audible wheezes, S1-S2, no murmur, oriented, bilateral lower extremity chronic venous stasis changes. Acute respiratory failure could be multifactorial secondary to volume overload, possible underlying COPD/sleep apnea. Keep him n.p.o. for now. Aspiration precautions. Update echo. Further management as per ICU team. Appreciate Regulatory Affairs Portfolio Leader help. I personally reviewed the record. Patient is interviewed and examined at bedside. Patient's care is coordinated with Tracey Ferguson PA-C. Please refer to the documentation above for details of patient's presentation and for discussion of other issues. (1) Respiratory failure with hypoxia and hypercapnia Chronicity: acute on chronic Qualified Code(s): J96.21 - Acute and chronic respiratory failure with hypoxia; J96.22 - Acute and chronic respiratory failure with hypercapnia
[2018-06-21] MEDS ORDERED: ICU PROTOCOL FOR HYPERGLYCEMIA PRN (16:49)
[2018-06-21] MEDS ORDERED: PNEUMOCOCCAL ADMINISTRATION CHARGE ONE (20:30)
[2018-06-21] MEDS ORDERED: INFLUENZA ADMINISTRATION CHARGE ONE (20:30)
[2018-06-21] MEDS ORDERED: PNEUMOCOCCAL POLYSACCHARIDES 25 MCG/0.5 ML VIAL/SYR IM ONE (20:30)
[2018-06-21] MEDS ORDERED: INFLUENZA VIRUS QUAD VACCINE 0.5 ML SYR IM ONE (20:30)
[2018-06-21] MEDS ORDERED: POTASSIUM CHLORIDE 20 MEQ TABCR PO STA (20:40)
[2018-06-21] MEDS ORDERED: ACETAZOLAMIDE IV ONE (21:00)
[2018-06-21] MEDS ORDERED: FAMOTIDINE 20 MG in SYRINGE 3 ML IV SCH (21:00)
[2018-06-21] MEDS ORDERED: DEXTROSE 5% IV ONE (21:00)
[2018-06-21] MEDS: HEPARIN SOD 5,000 UNIT/0.5 ML VIAL SQ SCH (21:45)
[2018-06-21] MEDS ORDERED: HEPARIN SOD 5,000 UNIT/0.5 ML VIAL SQ SCH (22:00)
[2018-06-22] MEDS ORDERED: FUROSEMIDE 40 MG/4 ML VIAL IV ONE (03:00)
[2018-06-22 04:31] LABS: Basophils # (auto) 0.01 K/uL (0-0.2); Basophils % (auto) 0.1 %; Eosinophils # (auto) 0.08 K/uL (0-0.5); Eosinophils % (auto) 0.7 %; Hematocrit (blood only) 38.5 % (42-52); Immature Granulocytes # (auto) 0.01 K/uL (0.00-0.02); Immature Granulocytes % (auto) 0.1 %; Lymphocytes # (auto) 0.63 K/uL (1.2-3.4); Lymphocytes % (auto) 5.8 %; Mean Corpuscular Hgb Conc 31.2 g/dL (32-36); Mean Corpuscular Volume 94.4 fL (80-100); Mean Platelet Volume 9.2 fL (7.4-10.4); Monocytes % (auto) 12.8 %; Neutrophils # (auto) 8.82 K/uL (1.4-6.5); Neutrophils % (auto) 80.5 %; Platelet Count 284 K/uL (130-400); RDW Coefficient of Variation 14.3 % (11.5-14.5); RDW Standard Deviation 49.2 fL (36.4-46.3); Red Blood Count 4.08 M/uL (4.7-6.1); White Blood Count 10.95 K/uL (4.8-10.8)
[2018-06-22 04:51] LABS: BUN Creatinine Ratio 29.4 (10-20); Calcium 8.8 mg/dl (8.5-10.1); Creatinine Clr Calc Pharmacy 114.8 ml/min; Est GFR (African American) 91.5; Est GFR (Non-African American) 78.9; Magnesium 2.4 mg/dl (1.8-2.4); Potassium 4.3 mmol/L (3.5-5.1)
[2018-06-22 04:52] LABS: Phosphorus 3.5 mg/dl (2.5-4.9)
[2018-06-22] MEDS: HEPARIN SOD 5,000 UNIT/0.5 ML VIAL SQ SCH ×2 (05:47→14:08)
--- NOTE | 2018-06-22 06:16 | Critical Care Progress Note ---
Date of Service June 22, 2018 Assessment & Plan (1) Admitted to intensive care unit: Lorenzo Jackson is a 77 year old male with past medical history of HTN, Gout, Cellulitis, HLD, chronic venous insufficiency, hypothyroidism who was admitted to the ICU with acute on chronic hypercapnic respiratory failure. Neuro: Cam negative, alert oriented x3 CT Head in ED NAD. Cardiac/vascular - Echocardiogram ordered and pending for consideration for cardiomyopathy. Moderate cardiomyopathy on Chest CTA seen. - Continue with aggressive Lasix treatments BID. - Review of old EMR:Previous weights recorded from prior admission unreliable but suspect fluid overload with gain in weight from last admission. -Hemodynamics stable CRV=925 WNL - continue with Lisinopril 40mg po qHS (home regimen) - continue with Simvastatin 20mg PO qHS for HLD,(home regimen) Pulm: - Acute hypercapneic respiratory failure: most likely multifactorial - Echo pending for Pulmonary HTN. 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 - No PE identified on Chest CTA - Chest CTA notes groundglass opacities atelectasis vs. mild pulmonary edema. Clinical picture favors Pulmonary edema as improved with lasix favoring volume overload. - Repeat CXR odered for this morning. GI - was NPO this morning because of echo - diet ordered heart healthy, carb consistent, 1800mL fluid restriction. - Eric from Nutrition to meet with patient today to discuss diet as diet mostly of cookies, cakes, sweets. Renal/Lytes - Creat today 0.93 - Na, K, Cl WNL - Vann cath in place, light yellow urine in bag this morning Endo - Hx of Hypothyoidism - continue with home dose of Synthroid. - hgb A1C ordered - pending, follow ICU hyperglycemic protocol as indicated Heme - WBC today 10.95, likely from cortisol stress demargination no signs of ID. - Hgb =12 and appears at baseline. - platelets 284 WNL ID - Procal negative - recently finished course of abx for lower extremity cellulitis. - blood cultures pending x2 Lines: peripheral IVs intact DVT ppx: SCDs, Heparin 7,5000 units q8. Stable for downgrade out of ICU today to remote tele. Supervising Physician Co-Signing Physician Notes Dr. Sharif was resident physician during care of patient. I separately evaluated patient for chin portions of the history and the exam. I was present during the critical portion of medical decision making, and I discussed the case with the resident. I generally agree with the findings and plan. Aggressive diuresis 3.5 L down, bicarbonate decreased slightly. Will continue with Lasix 40 mg twice daily with 40 mEq potassium today. Patient should wear BiPAP at night presumptive diagnosis of obstructive sleep apnea, I am also concerned he has baseline pulmonary hypertension. Echo ordered and awaiting results. Patient stable for downgrade out of ICU today. Subjective Lorenzo notes that his dyspnea has significantly improved today from [facility] to [facility] ED. He notes that he is having bilateral wrist pain but notes that is prob from way he was positioned overnight. He denies chest pain, nausea, vomiting, fever, chills. Review of Systems Review of Systems: All systems reviewed & are unremarkable except as noted in HPI & below General: no fever or chills Cardio: No chest pains, + lower extremity edema (chronic) Resp: +shortness of breath, improved. No cough. GI: No nausea/vomiting : No dysuria, no frequency Endo: No polyuria, no polydipsia Musculoskeletal: bilateral wrist pain, no back pain Neuro: No numbness, no confusion HEENT: No runny nose, no epistaxis. Psych: No hallucinations, no depression Physical Exam Constitutional: severe obesity, cooperative, comfortable Eyes: + anicteric sclerae and EOM intact bilaterally ENMT: moist mucous membranes Neck: normal visual inspection and trachea midline Respiratory: normal respiratory effort; no respiratory distress Auscultation: + diminished lung sounds; no wheezes Cardiovascular: Rate/Rhythm: regular rate and regular rhythm Extremities: + edema Gastrointestinal (Abdomen): Inspection/Auscultation: normal bowel sounds Percussion/Palpation: abdomen nontender Musculoskeletal: Head/Neck/Chest: normocephalic Extremities: no cyanosis bilateral mild hyperpigmentation of lower extremities consistent with chronic venous stasis without erythema or signs of infection Skin: generalized body xerosis Neurologic: moves all extremities; no focal motor deficits Speech / Cognition: normal speech Psychiatric: A+Ox3, euthymic affect Genitourinary: vann cath in place with light yellow urine in bag Results & Data Vital Signs (Past 12 Hours) Vital Signs Temp Pulse Resp BP Pulse Ox 06/22/18 06:01 67 18 111/61 92 06/22/18 05:01 68 18 108/60 92 06/22/18 04:01 68 27 H 119/62 91 06/22/18 04:00 36.6 C 06/22/18 03:01 65 23 131/76 95 06/22/18 02:01 65 20 122/68 95 06/22/18 01:01 59 L 20 133/62 92 06/22/18 00:29 36.7 C 06/22/18 00:01 54 L 23 113/56 L 94 06/21/18 23:01 67 19 96/54 L 95 06/21/18 22:01 63 19 126/66 91 06/21/18 21:01 57 L 19 128/59 L 93 06/21/18 20:01 63 20 120/67 94 06/21/18 19:52 60 18 93 06/21/18 19:46 36.5 C 06/21/18 19:01 58 L 15 95/53 L 89 L
[2018-06-22] MEDS ORDERED: PERFLUTREN LIPID MICROSPHERE (DEFINITY) IV ONE (07:23)
--- NOTE | 2018-06-22 07:50 | XRay Report ---
XR chest 1V portable HISTORY: Shortness of breath. COMPARISON: Chest 06/21/2018. FINDINGS: There are low lung volumes. No pneumothorax. Bibasilar densities and mild pulmonary vascula r congestion persists. The heart remains enlarged. IMPRESSION: No change in the bibasilar densities. This may represent atelectasis or pneumonia. Mild pulmonary vas cular congestion persists. Electronically signed by: Tal Painting M.D. 06/22/2018 7:49 AM
[2018-06-22] MEDS: POTASSIUM CHLORIDE 20 MEQ TABCR PO SCH ×2 (08:47→16:31)
[2018-06-22] MEDS: FUROSEMIDE 40 MG in SYRINGE 0 ML IV SCH ×2 (08:47→16:30)
[2018-06-22 10:00] LABS: Estimated Average Glucose 134 mg/dl; Hemoglobin A1C 6.3 % (4.5-5.6)
[2018-06-22] MEDS ORDERED: ACETAMINOPHEN 325 MG TAB PO PRN (11:24)
[2018-06-22] MEDS ORDERED: ACETAMINOPHEN 325 MG TAB ONE (11:45)
[2018-06-22] MEDS: EUCERIN CR 120 GM JAR EXT SCH ×2 (12:25→20:49)
[2018-06-22 12:33] LABS: iSTAT Creatinine 1.2 mg/dl (0.6-1.3); iSTAT Hemoglobin 12.2 g/dl (14.0-18.0); iSTAT Ionized Calcium 0.97 mmol/l (1.12-1.32); iSTAT Potassium 4.4 mEq/L (3.3-5.0)
--- NOTE | 2018-06-22 17:09 | Hospitalist Progress Note ---
Date of Service June 22, 2018 Assessment & Plan (1) Respiratory failure with hypoxia and hypercapnia: Pt presented to ER for lethargy, dysarthria and new onset hypoxia Upon ER arrival pt noted to be hypoxic at 82% on RA and was placed on 6L oxymask with oxygen sat of 93%. Afebrile, P: 80, BP: 138/75, R: reported at 20. WBC: 11.8, CO2: 40 Initial ABG was obtained and pH: 7.29, pCO2: 81, pO2: 171, HCO3: 38 After being on bipap pt alert and oriented and not as lethargic. Serial ABG 2 hours after on bipap pH: 7.22, pCO2: 92, pO2: 91, HCO3: 37 and 4hours after on bipap: pH: 7.24, pCO2: 93, pO2: 78, HCO3: 39 CT HEAD: no acute changes CTA CHEST: 1. No pulmonary emboli identified although exam moderately compromised by respiratory motion artifact. 2. Groundglass opacities within the lungs which favor atelectasis although mild pulmonary edema could appear similar. 3. Dilatation of the central pulmonary arteries which raises the possibility of pulmonary arterial hypertension. 4. Moderate cardiomegaly. 5. Marked muscular atrophy. -patient was admitted to intensive care unit -he was able to tolerate BIPAP and has been on nasal cannula -as per intensive unit care notes, he received IV diuretics and estimated to have net output of 3.5 liters -will continue Lasix as 40 mg IV BID -pulmonary consult advises to have BIPAP at night to further help with blood gas (2) Fluid overload: echocardiogram 65 to 70% with grade 1 diastolic dysfunction echocardiogram did not find evidence for pulmonary hypertension may be possible that patient has diastolic dysfunction which contributes to fluid overload -will continue Lasix as 40 mg IV BID for now (3) Hypothyroidism: TSH: 3.35 -continue home dose levothyroxine orally (4) HTN (hypertension): BPs stable -continue home dose lisinopril (5) Dyslipidemia: -continue home dose simvastatin (6) Cellulitis of both lower extremities: was previously treated on last hospitalization appears to have been resolved continue skin care as needed History of Gout -monitor extremities in case of new gout flares (7) Obesity: BMI: 42. Pt with generalized weakness and limited mobility will need PT and OT evaluations on this hospital stay DVT Prophylaxis -will switch from heparin subcut to Lovenox for ease of dosing Full Code Follows with Dr Sargent for routine care Subjective patient on nasal cannula. able to speak and eat without distress. denies chest pain. no vomiting. no abdomen pain. no headache. no lightheadedness Physical Exam Constitutional: no distress Eyes: PERRL, conjunctivae normal, anicteric sclerae EOM intact bilaterally ENMT: external ear and nose normal, oropharynx normal Neck: trachea midline, no thyromegaly normal visual inspection Respiratory: normal respiratory effort Cardiovascular: Rate/Rhythm: regular rate and regular rhythm Gastrointestinal (Abdomen): soft, positive bowel sounds, nontender Musculoskeletal: Head/Neck/Chest: normocephalic and head atraumatic Skin: chronic skin changes, dry skin Neurologic: PERRL, EOMI, accommodation nl, no face palsy, no dysarthria Psychiatric: A+Ox3, euthymic affect Results & Data Vital Signs (Past 12 Hours) Vital Signs Temp Pulse Resp BP Pulse Ox 06/22/18 16:00 37.3 C 78 24 122/65 94 06/22/18 15:00 74 31 H 106/55 L 94 06/22/18 14:00 80 36 H 100/53 L 88 L 06/22/18 13:00 88 25 H 107/58 L 93 06/22/18 12:00 80 25 H 121/65 92 06/22/18 11:00 70 22 105/59 L 92 06/22/18 10:00 82 29 H 105/60 93 06/22/18 09:00 76 27 H 120/64 92 06/22/18 08:00 36.6 C 69 31 H 134/67 92 06/22/18 07:00 72 18 129/71 91 06/22/18 06:01 67 18 111/61 92 (1) Respiratory failure with hypoxia and hypercapnia Chronicity: acute on chronic Qualified Code(s): J96.21 - Acute and chronic respiratory failure with hypoxia; J96.22 - Acute and chronic respiratory failure with hypercapnia
[2018-06-22] MEDS: SIMVASTATIN 20 MG TAB PO SCH (20:50)
[2018-06-22] MEDS ORDERED: LISINOPRIL 40 MG TAB PO SCH (21:00)
[2018-06-23] MEDS: LEVOTHYROXINE SODIUM 150 MCG TABLET PO SCH (05:47)
--- NOTE | 2018-06-23 05:54 | Consultation Report ---
DATE OF CONSULTATION: 06/22/2018 PULMONARY CONSULTATION TIME: 4:40 p.m. REPORT OF CONSULTATION: The patient was seen in room 103 in the intensive care unit. He is a 77-year-old male who was recently hospitalized from 06/07/2018 until 06/13/2018 with severe cellulitis. At that time, he had a lot of erythema and edema of the lower legs. During that hospital stay, he was treated with various antibiotics. He also received some Lasix. The edema of the legs improved. There was concern of mild worsening of kidney function so the Lasix was decreased. He actually did get some IV fluids. He does have a history of hypothyroidism. The exact cause for all the swelling diffusely was not clear. He was discharged to [facility]. This was for rehab. The patient believes that he is in the personal care section. He came back to the ER because of slurred speech, confusion and weakness. The ER evaluation included an arterial blood gas that was severely abnormal. The pH was 7.29 with pCO2 81 and pO2 171. This was with 60% oxygen. He had a repeat blood gas showing pH 7.22, pCO2 92 and pO2 91. He was on BiPAP reportedly. Repeat on BiPAP showed pH 7.24, pCO2 of 93, pO2 78. The patient's mental status improved a lot. He was more awake and alert. He was admitted to the ICU. He has continued to improve somewhat today. He wore BiPAP until about 3:00 a.m. The patient reportedly has gained about 100 pounds in the past 18 months. For about 3 or 4 months he has been very weak. He has had a cough which he describes as a tickle. He has been on lisinopril for quite some time and the possibility of a lisinopril cough has been considered. His and daughter were present during this evaluation. His states he does not snore to any degree. She thinks, however, that he may stop breathing during sleep and his daughter thinks the same. He has never had a sleep study done. SOCIAL HISTORY: The patient had smoked only between age 18 and 20 at about 1 pack per day. Since then, he has not smoked at all. There is no history of alcohol use. PAST MEDICAL HISTORY: 1. Gout. 2. Hyperlipidemia. 3. Hypertension. 4. Cellulitis. 5. Obesity. 6. Venous insufficiency. 7. Hypothyroidism. PAST SURGICAL HISTORY: The patient denies ever having had surgery before. FAMILY HISTORY: Mother , lung cancer. Father , had hypertension. OCCUPATIONAL HISTORY: The patient worked in [employer] [place]. 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 ALLERGIES: No known allergies. REVIEW OF SYSTEMS: Energy level has been poor. It is not clear how long the weakness really has been coming on. It probably has been very subtle. Appetite is good. Denies having pain generally except at the sites of the blood gases. He has been getting more and more lethargic and sleepy during the day relatively recently. This likely corresponds with worsening carbon dioxide. The remainder of the review of systems is negative. Ten systems reviewed. MEDICATIONS: As an outpatient 1. Vitamin D3. 2. Vitamin B12. 3. Florastor 250 mg b.i.d. 4. Furosemide 40 mg daily. 5. Levothyroxine. 6. Lisinopril 40 mg daily. 7. Simvastatin 20 mg daily. PHYSICAL EXAMINATION: GENERAL: The patient is a pleasant 77-year-old male who was cooperative, alert and oriented. He was in no distress. Weight is listed as 166.2 kilograms. BMI is 42.3. HEENT: Pupils were reactive. Cataracts were noted. Nares were clear. Mouth exam showed a Mallampati grade 3 pharynx. No erythema or exudate noted. NECK: The patient has a large neck. No lymph nodes palpable. CARDIOVASCULAR: Cardiac rate is 78 per minute. Rhythm is regular. Blood pressure 122/65. CHEST: Showed diminished excursions. Temperature 37.3, that is the highest temperature since admission. LUNGS: Lung koenig revealed severely diminished breath sounds. No wheezes, rales or rhonchi heard. Saturation 94% on 5 liter nasal cannula. ABDOMEN: Obese. Bowel sounds were present. There was no tenderness to palpation or masses. EXTREMITIES: Reveals moderate erythema in both lower legs. There is edema as well, which apparently is much less according to the patient and his family. It is noted that he had a negative fluid balance of 4665 mL since admission. LABORATORY DATA: White count is 10.95. Hemoglobin 12. Platelets 284,000. INR was 1. Electrolytes show sodium 139, potassium 4.3, chloride 101, bicarb 37. BUN 27 with creatinine 0.93. Phosphorus was 3.5. Magnesium 2.4. ProBNP was 352. Procalcitonin was less than 0.05. TSH is 3.35. This was improved with comparison with May when it was above 9. Liver functions were normal. Albumin 2.9 and protein 6.6. CAT scan of the chest shows no pulmonary emboli. There were ground-glass opacities within the lungs favoring some degree of atelectatic changes or mild edema. The central pulmonary arteries were somewhat dilated. There was marked muscle atrophy reported. It was unclear what specific muscles were atrophied. CAT scan of the head showed no acute intracranial findings. The patient had a venous Doppler on 06/02/2018 and this was negative. Blood cultures are still pending. Echocardiogram reported normal left ventricle size. Ejection fraction 65-70%. Grade 1 diastolic dysfunction. Left atrium mildly dilated. Right ventricle was normal in size and function. Doppler findings do not suggest pulmonary hypertension. EKG showed a sinus rhythm. First third-degree heart block is noted. IMPRESSION: 1. Respiratory failure -- acute on chronic with hypoxia and hypercarbia. 2. Obesity hypoventilation syndrome. 3. Possible obstructive sleep apnea. 4. Long-term dry cough -- possibly secondary to lisinopril. 5. Muscle atrophy as reported on CT chest. RECOMMENDATIONS: 1. For now advise nightly BiPAP. Pressures last night were set at 12/6, apparently. We will try him somewhat higher tonight at 14/8. 2. In the long haul the patient will need either BiPAP or noninvasive ventilator as an outpatient. 3. Strongly suggest weight loss. 4. Consideration to discontinuing lisinopril by using an alternative substitute to see if this improves the patient's chronic tickling type cough. 5. We will need to review with the radiologist's what specific muscle atrophy was reported and if there is significant muscle atrophy may need to have a Neurology evaluation. Thank you for asking me to assist in his care.
[2018-06-23 06:13] LABS: Eosinophils # (auto) 0.02 K/uL (0-0.5); Eosinophils % (auto) 0.2 %; Hematocrit (blood only) 35.3 % (42-52); Hemoglobin 11.4 g/dL (14.0-18.0); Immature Granulocytes # (auto) 0.02 K/uL (0.00-0.02); Immature Granulocytes % (auto) 0.2 %; Lymphocytes # (auto) 0.92 K/uL (1.2-3.4); Lymphocytes % (auto) 7.8 %; Mean Corpuscular Hgb Conc 32.3 g/dL (32-36); Mean Corpuscular Volume 90.5 fL (80-100); Monocytes # (auto) 1.44 K/uL (0.11-0.59); Monocytes % (auto) 12.3 %; Neutrophils # (auto) 9.32 K/uL (1.4-6.5); Neutrophils % (auto) 79.5 %; Platelet Count 270 K/uL (130-400); RDW Coefficient of Variation 14.7 % (11.5-14.5); RDW Standard Deviation 48.5 fL (36.4-46.3); White Blood Count 11.72 K/uL (4.8-10.8)
[2018-06-23 06:15] LABS: Oxygen Saturation VBG 87.8 %; pH VBG 7.4 (7.36-7.41)
[2018-06-23 06:41] LABS: BUN Creatinine Ratio 28.4 (10-20); Calcium 9.1 mg/dl (8.5-10.1); Creatinine Clr Calc Pharmacy 73.2 ml/min; Est GFR (African American) 53.5; Est GFR (Non-African American) 46.1; Magnesium 2.7 mg/dl (1.8-2.4); Potassium 4.1 mmol/L (3.5-5.1)
[2018-06-23 06:45] LABS: Phosphorus 2.9 mg/dl (2.5-4.9)
[2018-06-23] MEDS: EUCERIN CR 120 GM JAR EXT SCH ×2 (08:15→21:14)
[2018-06-23] MEDS: FUROSEMIDE 40 MG TAB PO SCH ×2 (08:15→16:15)
[2018-06-23] MEDS ORDERED: ENOXAPARIN INJ 40 MG/0.4 ML SYR SQ SCH (09:00)
[2018-06-23] MEDS ORDERED: OXYCODONE HCL IR 5 MG TAB (IMMEDIATE RELEASE) PO PRN (09:49)
[2018-06-23] MEDS: ACETAMINOPHEN 325 MG TAB PO PRN (10:21)
--- NOTE | 2018-06-23 15:02 | Progress Note ---
DATE: 06/23/2018 PULMONARY PROGRESS NOTE TIME: 11:45 a.m. SUBJECTIVE: The patient is difficult to communicate with because he has BiPAP on now. His daughter and his are present. His daughter states that when she first came in about 9:30 a.m., he had some slurred speech, much as he had when he first came. This could suggest hypercarbia. He did not wear the BiPAP much at all last night. It was reported in the notes that he states he could not sleep with it. He told me that the upper strap was bothering his forehead. He is wearing the BiPAP currently without difficulty. He is awake enough to talk some. He is kind of lethargic. OBJECTIVE: GENERAL: The patient is somewhat lethargic. He is on BiPAP. VITAL SIGNS: Temperature 36.7. HEART: Heart rate 84 per minute. Rhythm is regular. Blood pressure 112/69. LUNGS: Lung koenig revealed diminished breath sounds. Respiratory rate 20. Saturations 95% on BiPAP. EXTREMITIES: Continue to reveal approximately +1 to +2 edema in the lower extremities. Both hands are also swollen. He does continue to complain of hand and wrist pain. This may be related to the blood gases he had done previously. The patient's CAT scan of the chest that was done on admission reported marked muscle atrophy. I called and spoke with Dr. Castanon who read the report. His feeling was the patient had profound muscle atrophy everywhere. He reviewed a prior CAT scan from 2017 and he states it looked the same. This is a very unusual finding, however. White count today 11.72. Hemoglobin 11.4. Platelets 270,000. There was a venous blood gas done this morning. This reported a pCO2 of 63, which I think is highly unlikely considering his other blood gases. Electrolytes show sodium 140, potassium 4.1, chloride 100, bicarbonate 36. BUN is 41 with a creatinine of 1.45. These have increased significantly since yesterday. IMPRESSION: 1. Respiratory failure -- [id number] with hypoxia and hypercarbia. 2. Obesity hypoventilation syndrome. 3. Possible obstructive sleep apnea. 4. Severe muscle atrophy -- etiology unknown. 5. Chronic cough -- questionably secondary to lisinopril. COMMENTS AND RECOMMENDATIONS: I am hopeful the patient will wear his BiPAP at least when he goes to bed at night. I have encouraged this to him. I believe that it is almost mandatory for him to have any help of ventilating a little better. I believe the Lasix should likely be decreased in light of his worsening BUN and creatinine. It was changed to p.o. today apparently. Thus, it may not affect the function as much. I believe his prognosis is very poor.
--- NOTE | 2018-06-23 19:03 | Hospitalist Progress Note ---
Date of Service June 23, 2018 Assessment & Plan (1) Respiratory failure with hypoxia and hypercapnia: Pt presented to ER for lethargy, dysarthria and new onset hypoxia Upon ER arrival pt noted to be hypoxic at 82% on RA and was placed on 6L oxymask with oxygen sat of 93%. Afebrile, P: 80, BP: 138/75, R: reported at 20. WBC: 11.8, CO2: 40 Initial ABG was obtained and pH: 7.29, pCO2: 81, pO2: 171, HCO3: 38 After being on bipap pt alert and oriented and not as lethargic. Serial ABG 2 hours after on bipap pH: 7.22, pCO2: 92, pO2: 91, HCO3: 37 and 4hours after on bipap: pH: 7.24, pCO2: 93, pO2: 78, HCO3: 39 CT HEAD: no acute changes CTA CHEST: 1. No pulmonary emboli identified although exam moderately compromised by respiratory motion artifact. 2. Groundglass opacities within the lungs which favor atelectasis although mild pulmonary edema could appear similar. 3. Dilatation of the central pulmonary arteries which raises the possibility of pulmonary arterial hypertension. 4. Moderate cardiomegaly. 5. Marked muscular atrophy. -patient was admitted to intensive care unit -he was able to tolerate BIPAP and has been on nasal cannula -as per intensive unit care notes, he received IV diuretics and estimated to have net output of 3.5 liters (2) Fluid overload: Acute diastolic heart failure echocardiogram 65 to 70% with grade 1 diastolic dysfunction echocardiogram did not find evidence for pulmonary hypertension -patient diuresed well with IV Lasix on admission with Lasix 40 mg IV BID but on labs subsequent to ICU stay on 06/23/18 the creatinine is 1.45 and shows that patient's renal function very sensitive to IV diuresis and was placed on Lasxi 40 mg orally BID on 06/23/18 -however lower extremity still very edematous and patient continues to be on high nasal cannula 5 liters/min and will continue to trend renal function and ajust diuretics -keep low sodium diet and 1800 ml fluid restriction Acute Kidney injury secondary to diuretics and will monitor closely (3) Hypothyroidism: TSH: 3.35 -continue home dose levothyroxine orally (4) HTN (hypertension): -will hold home dose lisinopril due to acute kidney injury (5) Dyslipidemia: -continue home dose simvastatin (6) Cellulitis of both lower extremities: was previously treated on last hospitalization continue skin care as needed continue diuresis History of Gout -left wrist pain may be from gout flare -holding off NSAID because of LIZZ and avoiding steroids because of edema -will give prn oxycodone for now (7) Obesity: BMI: 42. Pt with generalized weakness and limited mobility will need PT and OT evaluations on this hospital stay DVT Prophylaxis -will switch from lovenox to heparin subcut due to worsening renal function Full Code Follows with Dr Sargent for routine care Subjective patient on nasal cannula. denies chest pain. denies abdomen pain. no distress Physical Exam Eyes: PERRL, conjunctivae normal, anicteric sclerae EOM intact bilaterally ENMT: external ear and nose normal, oropharynx normal Neck: trachea midline, no thyromegaly normal visual inspection Respiratory: normal respiratory effort Cardiovascular: Rate/Rhythm: regular rate and regular rhythm Gastrointestinal (Abdomen): normal bowel sounds, soft, nontender, no hepatosplenomegaly Musculoskeletal: Head/Neck/Chest: normocephalic and head atraumatic Extremities: + wrist abnormality (left wrist tenderness) and + lower extremity abnormal to inspection (bilateral lower extremity edema) Neurologic: PERRL, EOMI, accommodation nl, no face palsy, no dysarthria Psychiatric: A+Ox3, euthymic affect Results & Data Vital Signs (Past 12 Hours) Vital Signs Temp Pulse Pulse Resp BP Pulse Ox 06/23/18 15:27 36.5 C 62 21 100/63 94 06/23/18 11:36 37.1 C 65 18 112/73 97 06/23/18 08:00 84 06/23/18 07:08 36.7 C 75 19 112/69 95 (1) Respiratory failure with hypoxia and hypercapnia Chronicity: acute on chronic Qualified Code(s): J96.21 - Acute and chronic respiratory failure with hypoxia; J96.22 - Acute and chronic respiratory failure with hypercapnia
[2018-06-23] MEDS: SIMVASTATIN 20 MG TAB PO SCH (21:12)
[2018-06-24 06:10] LABS: Basophils # (auto) 0.01 K/uL (0-0.2); Basophils % (auto) 0.1 %; Eosinophils # (auto) 0.09 K/uL (0-0.5); Eosinophils % (auto) 0.9 %; Hematocrit (blood only) 34.8 % (42-52); Hemoglobin 10.8 g/dL (14.0-18.0); Immature Granulocytes # (auto) 0.02 K/uL (0.00-0.02); Immature Granulocytes % (auto) 0.2 %; Lymphocytes # (auto) 0.92 K/uL (1.2-3.4); Lymphocytes % (auto) 9.6 %; Mean Corpuscular Volume 93.3 fL (80-100); Monocytes % (auto) 15.7 %; Neutrophils # (auto) 7.01 K/uL (1.4-6.5); Neutrophils % (auto) 73.5 %; Platelet Count 264 K/uL (130-400); RDW Coefficient of Variation 14.8 % (11.5-14.5); RDW Standard Deviation 50.3 fL (36.4-46.3); Red Blood Count 3.73 M/uL (4.7-6.1); White Blood Count 9.55 K/uL (4.8-10.8)
[2018-06-24] MEDS: LEVOTHYROXINE SODIUM PO SCH (06:27)
[2018-06-24 06:44] LABS: BUN Creatinine Ratio 31.9 (10-20); Calcium 8.9 mg/dl (8.5-10.1); Creatinine Clr Calc Pharmacy 67.9 ml/min; Est GFR (African American) 48.9; Est GFR (Non-African American) 42.2; Magnesium 2.7 mg/dl (1.8-2.4); Phosphorus 3.6 mg/dl (2.5-4.9); Potassium 4.2 mmol/L (3.5-5.1)
[2018-06-24] MEDS: HEPARIN SOD 5,000 UNIT/0.5 ML VIAL SQ SCH ×2 (07:59→20:35)
[2018-06-24] MEDS: EUCERIN CR 120 GM JAR EXT SCH ×2 (07:59→20:34)
[2018-06-24] MEDS: FUROSEMIDE 40 MG TAB PO SCH (07:59)
--- NOTE | 2018-06-24 08:16 | Hospitalist Progress Note ---
Date of Service June 24, 2018 Assessment & Plan (1) Respiratory failure with hypoxia and hypercapnia: Pt presented to ER for lethargy, dysarthria and new onset hypoxia Upon ER arrival pt noted to be hypoxic at 82% on RA and was placed on 6L oxymask with oxygen sat of 93%. Afebrile, P: 80, BP: 138/75, R: reported at 20. WBC: 11.8, CO2: 40 Initial ABG was obtained and pH: 7.29, pCO2: 81, pO2: 171, HCO3: 38 After being on bipap pt alert and oriented and not as lethargic. Serial ABG 2 hours after on bipap pH: 7.22, pCO2: 92, pO2: 91, HCO3: 37 and 4hours after on bipap: pH: 7.24, pCO2: 93, pO2: 78, HCO3: 39 CT HEAD: no acute changes CTA CHEST: 1. No pulmonary emboli identified although exam moderately compromised by respiratory motion artifact. 2. Groundglass opacities within the lungs which favor atelectasis although mild pulmonary edema could appear similar. 3. Dilatation of the central pulmonary arteries which raises the possibility of pulmonary arterial hypertension. 4. Moderate cardiomegaly. 5. Marked muscular atrophy. -patient was admitted to intensive care unit -he was able to tolerate BIPAP and has been on nasal cannula -as per intensive unit care notes, he received IV diuretics and estimated to have net output of 3.5 liters -was transferred out of ICU on 06/22/18 -continue management of hypoxia with supplementary oxygen, bipap as needed, encourage use of bipap with sleep, diuresis (2) Fluid overload: Acute diastolic heart failure echocardiogram 65 to 70% with grade 1 diastolic dysfunction echocardiogram did not find evidence for pulmonary hypertension -patient diuresed well with IV Lasix on admission with Lasix 40 mg IV BID but on labs subsequent to ICU stay on 06/23/18 the creatinine is 1.45 and shows that patient's renal function very sensitive to IV diuresis and was placed on Lasix 40 mg orally BID on 06/23/18 -creatinine increase to 1.56 on 06/24/18, got morning oral Lasix 40 mg but lower extremities very swollen still and will give Lasix 40 mg IV BID with albumin starting on 06/24/18 to resolve edema and give intravascular volume to kidneys -keep low sodium diet and 1800 ml fluid restriction Acute Kidney injury secondary to diuretics and will monitor closely plan as above (3) Hypothyroidism: 06/21/18 TSH: 3.35 -continue home dose levothyroxine orally -will recheck TSH (4) HTN (hypertension): -hold home dose lisinopril due to acute kidney injury -blood pressure is controlled -on diuretic with Lasix (5) Dyslipidemia: -continue home dose simvastatin (6) Cellulitis of both lower extremities: was previously treated on last hospitalization continue skin care as needed leg erythema likely due to venous stasis continue diuresis History of Gout Acute gout flare of the wrist wrist pain is bilateral will send for wrist X rays holding off NSAID because of LIZZ start prednisone 20 mg daily on 06/24/18 steroid will check uric acid but likely to be high as on last admission prn oxycodone and prn acetaminophen for pain control (7) Obesity: BMI: 42. Pt with generalized weakness and limited mobility continue PT and OT evaluations on this hospital stay DVT Prophylaxis -heparin subcut due to worsening renal function Full Code Follows with Dr Sargent for routine care Subjective patient complain of bilateral wrist pain. on nasal cannula. legs in waffle boots. legs still swollen. encourage patient and nursing staff to have patient get out of bed to the chair. patient denies chest pain. able to eat. no vomiting. reinforced fluid restriction with patient Physical Exam Eyes: PERRL, conjunctivae normal, anicteric sclerae EOM intact bilaterally ENMT: external ear and nose normal, oropharynx normal Neck: trachea midline, no thyromegaly normal visual inspection Respiratory: normal respiratory effort Cardiovascular: Rate/Rhythm: regular rate and regular rhythm Gastrointestinal (Abdomen): normal bowel sounds, soft, nontender, no hepatosplenomegaly Musculoskeletal: Head/Neck/Chest: normocephalic and head atraumatic Extremities: + wrist abnormality (wrist tenderness) Bilateral and + lower extremity abnormal to inspection (bilateral lower extremity edema) Neurologic: PERRL, EOMI, accommodation nl, no face palsy, no dysarthria Psychiatric: A+Ox3, euthymic affect Results & Data Vital Signs (Past 12 Hours) Vital Signs Temp Pulse Pulse Resp BP Pulse Ox 06/24/18 07:00 36.7 C 74 28 H 136/80 95 06/24/18 03:55 36.8 C 67 18 114/66 94 06/23/18 23:57 37.6 C H 66 26 H 125/67 94 06/23/18 22:05 76 24 97 (1) Respiratory failure with hypoxia and hypercapnia Chronicity: acute on chronic Qualified Code(s): J96.21 - Acute and chronic respiratory failure with hypoxia; J96.22 - Acute and chronic respiratory failure with hypercapnia
[2018-06-24] MEDS: predniSONE 20 MG TAB PO SCH (10:31)
[2018-06-24] MEDS: ALBUMIN 25% 50 ML with FUROSEMIDE 40 MG IV SCH ×2 (10:31→16:50)
--- NOTE | 2018-06-24 10:45 | Progress Note ---
DATE: 06/24/2018 PULMONARY PROGRESS NOTE TIME OF EXAM: 09:35 a.m. SUBJECTIVE: The patient continues to complain of weakness and wrist pain. He has a good appetite. He is so weak. He has marked difficulty eating and this is exacerbated by his wrist pain. He wore BiPAP for 2 hours early in the night. He then wore it again for about an hour and a half or two in the latter part of the night. OBJECTIVE: GENERAL: The patient appeared comfortable. VITAL SIGNS: Temperature is 36.7. Heart rate 83 per minute. Rhythm regular. Blood pressure 136/80. LUNGS: Lung koenig were difficult to evaluate because the patient is so weak and it is difficult to auscultate posteriorly. The lungs sounded clear as best as I could determine. Respiratory rate earlier today was 28 breaths per minute. Saturation 95% on 4 liters. EXTREMITIES: The patient has some wrist pain on both sides from the anterior and posterior sides. Hand still looked swollen. Peripheral edema is unchanged. Fluid balance yesterday was -555 mL. LABORATORY DATA: White count today 9.55. Hemoglobin 10.8. Platelets 264,000. Electrolytes show sodium 140, potassium 4.2, chloride 100, bicarbonate 36. BUN is up to 50 with a creatinine of 1.56. They have continued to rise. Magnesium was 2.7, which is mildly high. I discussed the CAT scan of his chest with Dr. Castanon who read it. My specific question was regarding the muscle atrophy. He states that all of his muscles appear severely atrophied. This is a very unusual finding. This includes the chest muscles. The possibility of myopathy or myositis needs to be considered. IMPRESSION: 1. Respiratory failure - acute on chronic with hypoxia and hypercarbia. 2. Obesity hypoventilation syndrome. 3. Obstructive sleep apnea, suspected. 4. Chronic cough - questionable secondary to lisinopril. 5. Severe muscle atrophy. COMMENTS AND RECOMMENDATIONS: The patient was encouraged to keep trying to wear his BiPAP more and more. It does appear that there is marked soreness on the forehead related to the particular type of mask he has. I believe that area needs to be less tight. We will check a sed rate. Consideration is given to a neurology evaluation for myopathy. We need to keep his oxygen saturations lower in order to stimulate ventilation as much as feasible.
--- NOTE | 2018-06-24 10:54 | XRay Report ---
XR wrist RT min 3V routine CLINICAL HISTORY: Wrist pain COMPARISON: None. DISCUSSION: No acute fractures are visualized. There are small cysts within the radial styloid, capit ate, lunate, and navicular. There are osteoarthritic changes most pronounced the level of the first c arpometacarpal joint, interphalangeal joint of the thumb. There is a corticated triangular bony densi ty at the base of the fifth metacarpal. This is likely old IMPRESSION: 1. No acute fractures 2. Mild osteoarthritic change 3. Multiple carpal bone cysts. Electronically signed by: Mike Thomas M.D. 06/24/2018 10:53 AM
--- NOTE | 2018-06-24 10:55 | XRay Report ---
XR wrist LT min 3V routine CLINICAL HISTORY: Left wrist pain COMPARISON: None. DISCUSSION: No acute fractures are visualized. There are advanced osteophytic changes the level the f irst carpal metacarpal joint. There are carpal bone cysts involving the navicular and capitate, likel y degenerative. IMPRESSION: 1. No acute fractures 2. Advanced osteoarthritic changes the level the first carpal metacarpal joint. Electronically signed by: Mike Thomas M.D. 06/24/2018 10:54 AM
[2018-06-24] MEDS: SIMVASTATIN 20 MG TAB PO SCH (20:35)
[2018-06-25 06:12] LABS: Basophils # (auto) 0.01 K/uL (0-0.2); Basophils % (auto) 0.1 %; Eosinophils # (auto) 0.03 K/uL (0-0.5); Eosinophils % (auto) 0.3 %; Hematocrit (blood only) 34.2 % (42-52); Hemoglobin 10.8 g/dL (14.0-18.0); Immature Granulocytes # (auto) 0.03 K/uL (0.00-0.02); Immature Granulocytes % (auto) 0.3 %; Lymphocytes # (auto) 0.94 K/uL (1.2-3.4); Lymphocytes % (auto) 10.6 %; Mean Corpuscular Hgb Conc 31.6 g/dL (32-36); Mean Platelet Volume 9.2 fL (7.4-10.4); Monocytes # (auto) 1.28 K/uL (0.11-0.59); Monocytes % (auto) 14.4 %; Neutrophils # (auto) 6.57 K/uL (1.4-6.5); Neutrophils % (auto) 74.3 %; Platelet Count 256 K/uL (130-400); RDW Coefficient of Variation 14.5 % (11.5-14.5); RDW Standard Deviation 49.7 fL (36.4-46.3); Red Blood Count 3.64 M/uL (4.7-6.1); White Blood Count 8.86 K/uL (4.8-10.8)
[2018-06-25] MEDS: LEVOTHYROXINE SODIUM PO SCH (06:32)
[2018-06-25 06:41] LABS: Base Excess VBG 8.2 mEq/L; pH VBG 7.34 (7.36-7.41)
[2018-06-25 06:51] LABS: Albumin Level 2.5 gm/dl (3.4-5.0); BUN Creatinine Ratio 39.3 (10-20); Calcium 8.8 mg/dl (8.5-10.1); Creatinine Clr Calc Pharmacy 69.4 ml/min; Est GFR (African American) 50.5; Est GFR (Non-African American) 43.6; Potassium 4.4 mmol/L (3.5-5.1); Uric Acid 12.7 mg/dl (2.6-7.2)
[2018-06-25 06:54] LABS: Albumin Globulin Ratio 0.7 (0.9-2); Bilirubin,Total 0.3 mg/dl (0.2-1); Globulin 3.7 gm/dl (2.5-4.0); Total Protein 6.2 gm/dl (6.4-8.2)
[2018-06-25] MEDS: EUCERIN CR 120 GM JAR EXT SCH ×2 (07:52→20:14)
[2018-06-25] MEDS: HEPARIN SOD 5,000 UNIT/0.5 ML VIAL SQ SCH ×2 (07:53→20:14)
[2018-06-25] MEDS: predniSONE 20 MG TAB PO SCH (07:53)
[2018-06-25] MEDS: ALBUMIN 25% 50 ML with FUROSEMIDE 40 MG IV SCH ×2 (08:56→16:49)
--- NOTE | 2018-06-25 09:24 | Hospitalist Progress Note ---
Date of Service June 25, 2018 Assessment & Plan (1) Respiratory failure with hypoxia and hypercapnia: Pt presented to ER for lethargy, dysarthria and new onset hypoxia Upon ER arrival pt noted to be hypoxic at 82% on RA and was placed on 6L oxymask with oxygen sat of 93%. Afebrile, P: 80, BP: 138/75, R: reported at 20. WBC: 11.8, CO2: 40 Initial ABG was obtained and pH: 7.29, pCO2: 81, pO2: 171, HCO3: 38 After being on bipap pt alert and oriented and not as lethargic. Serial ABG 2 hours after on bipap pH: 7.22, pCO2: 92, pO2: 91, HCO3: 37 and 4hours after on bipap: pH: 7.24, pCO2: 93, pO2: 78, HCO3: 39 CT HEAD: no acute changes CTA CHEST: 1. No pulmonary emboli identified although exam moderately compromised by respiratory motion artifact. 2. Groundglass opacities within the lungs which favor atelectasis although mild pulmonary edema could appear similar. 3. Dilatation of the central pulmonary arteries which raises the possibility of pulmonary arterial hypertension. 4. Moderate cardiomegaly. 5. Marked muscular atrophy. -patient was admitted to intensive care unit -he was able to tolerate BIPAP and has been on nasal cannula -as per intensive unit care notes, he received IV diuretics and estimated to have net output of 3.5 liters -was transferred out of ICU on 06/22/18 -continue management of hypoxia with supplementary oxygen, bipap as needed, encourage use of bipap with sleep, diuresis Muscle Deconditioning In regards to the muscular atrophy seen radiographically with Chest CT that there is no elevations in creatinine kinase to suggest a muscle break down from a myositis will need to continue PT/OT as tolerated and encourage activities to prevent muscle deconditioning Patient's large body habitus and obesity and gout flare preventing strenuous activities (2) Fluid overload: Acute diastolic heart failure echocardiogram 65 to 70% with grade 1 diastolic dysfunction echocardiogram did not find evidence for pulmonary hypertension -patient diuresed well with IV Lasix on admission with Lasix 40 mg IV BID but on labs subsequent to ICU stay on 06/23/18 the creatinine is 1.45 and shows that patient's renal function very sensitive to IV diuresis and was placed on Lasix 40 mg orally BID on 06/23/18 -creatinine increase to 1.56 on 06/24/18, got morning oral Lasix 40 mg but lower extremities very swollen still and given Lasix 40 mg IV BID with albumin starting on 06/24/18 to resolve edema and give intravascular volume to kidneys -creatinine syable as 1.52 on 06/25/18 while on Lasix with albumin, continue -keep low sodium diet and 1800 ml fluid restriction Acute Kidney injury secondary to diuretics and will monitor closely plan as above (3) Hypothyroidism: 06/21/18 TSH: 3.35 06/24/18 TSH: 2.63 -continue home dose levothyroxine orally (4) HTN (hypertension): -hold home dose lisinopril due to acute kidney injury -blood pressure is controlled -on diuretic with Lasix (5) Dyslipidemia: -continue home dose simvastatin (6) Cellulitis of both lower extremities: was previously treated on last hospitalization continue skin care as needed leg erythema likely due to venous stasis continue diuresis History of Gout Acute gout flare of the wrist wrist pain is bilateral no wrist fractures on X ray holding off NSAID because of LIZZ started prednisone 20 mg daily on 06/24/18, continue uric acid 12.7 prn oxycodone and prn acetaminophen for pain control (7) Obesity: BMI: 42. continue PT and OT evaluations on this hospital stay DVT Prophylaxis -heparin subcut due to worsening renal function Full Code Follows with Dr Sargent for routine care Subjective Patient reports he was able to use the BIPAP for sleep yesterday night. on nasal cannula 4 liters/min. Patient reports left wrist pain and mobility feels better. still have same discomfort with right wrist. no chest pain or abdomen pain. legs are still swollen Physical Exam Eyes: PERRL, conjunctivae normal, anicteric sclerae EOM intact bilaterally ENMT: external ear and nose normal, oropharynx normal Neck: trachea midline, no thyromegaly normal visual inspection Respiratory: normal respiratory effort Cardiovascular: Rate/Rhythm: regular rate and regular rhythm Gastrointestinal (Abdomen): normal bowel sounds, soft, nontender, no hepatosplenomegaly Musculoskeletal: Head/Neck/Chest: normocephalic and head atraumatic Extremities: + wrist abnormality (wrist tenderness) and + lower extremity abnormal to inspection (bilateral lower extremity edema) Skin: + rash (redness of lower extremities) Neurologic: PERRL, EOMI, accommodation nl, no face palsy, no dysarthria Psychiatric: A+Ox3, euthymic affect Results & Data Vital Signs (Past 12 Hours) Vital Signs Temp Pulse Pulse Resp BP Pulse Ox 06/25/18 07:40 36.7 C 77 22 126/70 90 06/25/18 03:25 36.8 C 66 23 106/66 96 06/24/18 23:29 36.9 C 72 17 106/64 96 06/24/18 22:13 77 16 96 (1) Respiratory failure with hypoxia and hypercapnia Chronicity: acute on chronic Qualified Code(s): J96.21 - Acute and chronic respiratory failure with hypoxia; J96.22 - Acute and chronic respiratory failure with hypercapnia
[2018-06-25] MEDS: SIMVASTATIN 20 MG TAB PO SCH (20:14)
[2018-06-26] MEDS: LEVOTHYROXINE SODIUM 150 MCG TABLET PO SCH (05:52)
[2018-06-26] MEDS: HEPARIN SOD 5,000 UNIT/0.5 ML VIAL SQ SCH ×2 (08:31→20:41)
[2018-06-26] MEDS: predniSONE 20 MG TAB PO SCH (08:31)
[2018-06-26] MEDS: EUCERIN CR 120 GM JAR EXT SCH ×2 (08:31→20:41)
[2018-06-26] MEDS: ALBUMIN 25% 50 ML with FUROSEMIDE 40 MG IV SCH ×2 (10:44→17:22)
--- NOTE | 2018-06-26 17:58 | Hospitalist Progress Note ---
Date of Service June 26, 2018 Assessment & Plan (1) Respiratory failure with hypoxia and hypercapnia: Pt presented to ER for lethargy, dysarthria and with Acute Respiratory failure with Hypoxia and Hypercapnia Upon ER arrival pt noted to be hypoxic at 82% on RA and was placed on 6L oxymask with oxygen sat of 93%. Afebrile, P: 80, BP: 138/75, R: reported at 20. WBC: 11.8, CO2: 40 Initial ABG was obtained and pH: 7.29, pCO2: 81, pO2: 171, HCO3: 38 After being on bipap pt alert and oriented and not as lethargic. Serial ABG 2 hours after on bipap pH: 7.22, pCO2: 92, pO2: 91, HCO3: 37 and 4hours after on bipap: pH: 7.24, pCO2: 93, pO2: 78, HCO3: 39 CT HEAD: no acute changes CTA CHEST: 1. No pulmonary emboli identified although exam moderately compromised by respiratory motion artifact. 2. Groundglass opacities within the lungs which favor atelectasis although mild pulmonary edema could appear similar. 3. Dilatation of the central pulmonary arteries which raises the possibility of pulmonary arterial hypertension. 4. Moderate cardiomegaly. 5. Marked muscular atrophy. -patient was admitted to intensive care unit -he was able to tolerate BIPAP and has been on nasal cannula -as per intensive unit care notes, he received IV diuretics and estimated to have net output of 3.5 liters -was transferred out of ICU on 06/22/18 -continue management of hypoxia with supplementary oxygen, bipap as needed, encourage use of bipap with sleep, diuresis -currently on 3 liters/minute nasal cannula/min Muscle Deconditioning In regards to the muscular atrophy seen radiographically with Chest CT that there is no elevations in creatinine kinase to suggest a muscle break down from a myositis will need to continue PT/OT as tolerated and encourage activities to prevent muscle deconditioning Patient's large body habitus and obesity and gout flare preventing strenuous activities (2) Fluid overload: Acute diastolic heart failure echocardiogram 65 to 70% with grade 1 diastolic dysfunction echocardiogram did not find evidence for pulmonary hypertension -patient diuresed well with IV Lasix on admission with Lasix 40 mg IV BID but on labs subsequent to ICU stay on 06/23/18 the creatinine is 1.45 and shows that patient's renal function very sensitive to IV diuresis and was placed on Lasix 40 mg orally BID on 06/23/18 -creatinine increase to 1.56 on 06/24/18, got morning oral Lasix 40 mg but lower extremities very swollen still and given Lasix 40 mg IV BID with albumin starting on 06/24/18 to resolve edema and give intravascular volume to kidneys -creatinine stable as 1.52 on 06/25/18 while on Lasix with albumin, continue - the Lasix BID with albumin order will fall off by 06/27/18, will see if patient can be transitioned to oral Lasix based on labs and respiratory status and weights -keep low sodium diet and 1800 ml fluid restriction Acute Kidney injury secondary to diuretics and will monitor closely plan as above (3) Hypothyroidism: 06/21/18 TSH: 3.35 06/24/18 TSH: 2.63 -continue home dose levothyroxine orally (4) HTN (hypertension): -hold home dose lisinopril due to acute kidney injury -blood pressure is controlled -on diuretic with Lasix (5) Dyslipidemia: -continue home dose simvastatin (6) Cellulitis of both lower extremities: was previously treated on last hospitalization continue skin care as needed leg erythema likely due to venous stasis continue diuresis History of Gout Acute gout flare of the wrist wrist pain is bilateral no wrist fractures on X ray holding off NSAID because of LIZZ started prednisone 20 mg daily on 06/24/18, continue uric acid 12.7 prn oxycodone and prn acetaminophen for pain control (7) Obesity: BMI: 42. continue PT and OT evaluations on this hospital stay DVT Prophylaxis -heparin subcut Full Code Follows with Dr Sargent for routine care Subjective Patient able to tolerate the BIPAP wiith sleep. diuresing well with IV Lasix and albumin. denies chest pain or acute shortness of breath. on 3 liters/min nasal cannula. no chest pain. somewhat decrease in size of the legs but still swollen bilaterally Physical Exam Eyes: PERRL, conjunctivae normal, anicteric sclerae EOM intact bilaterally ENMT: external ear and nose normal, oropharynx normal Neck: trachea midline, no thyromegaly normal visual inspection Respiratory: normal respiratory effort Cardiovascular: Rate/Rhythm: regular rate and regular rhythm Gastrointestinal (Abdomen): normal bowel sounds, soft, nontender, no hepatosplenomegaly Musculoskeletal: Head/Neck/Chest: normocephalic and head atraumatic Extremities: + wrist abnormality (wrist tenderness) and + lower extremity abnormal to inspection (bilateral lower extremity edema) Skin: + rash (redness of lower extremities) Neurologic: PERRL, EOMI, accommodation nl, no face palsy, no dysarthria Psychiatric: A+Ox3, euthymic affect Results & Data Vital Signs (Past 12 Hours) Vital Signs Temp Pulse Pulse Resp BP Pulse Ox 06/26/18 07:18 36.8 C 68 19 120/63 90 06/26/18 05:09 37.2 C 75 22 117/71 92 06/26/18 02:23 72 18 97 06/26/18 00:00 76 06/25/18 23:31 37.1 C 77 23 135/72 97 (1) Respiratory failure with hypoxia and hypercapnia Chronicity: acute on chronic Qualified Code(s): J96.21 - Acute and chronic respiratory failure with hypoxia; J96.22 - Acute and chronic respiratory failure with hypercapnia
[2018-06-26] MEDS: SIMVASTATIN 20 MG TAB PO SCH (20:42)
[2018-06-27] MEDS: LEVOTHYROXINE SODIUM PO SCH (05:44)
[2018-06-27] MEDS: predniSONE 20 MG TAB PO SCH (07:45)
[2018-06-27] MEDS: EUCERIN CR 120 GM JAR EXT SCH ×2 (07:45→21:19)
[2018-06-27] MEDS: FUROSEMIDE 40 MG TAB PO SCH ×3 (07:46→16:49)
[2018-06-27 08:15] LABS: Basophils # (auto) 0.02 K/uL (0-0.2); Basophils % (auto) 0.2 %; Eosinophils # (auto) 0.07 K/uL (0-0.5); Eosinophils % (auto) 0.9 %; Hematocrit (blood only) 36.7 % (42-52); Hemoglobin 11.8 g/dL (14.0-18.0); Immature Granulocytes # (auto) 0.02 K/uL (0.00-0.02); Immature Granulocytes % (auto) 0.2 %; Lymphocytes # (auto) 1.23 K/uL (1.2-3.4); Lymphocytes % (auto) 15.1 %; Mean Corpuscular Volume 90.8 fL (80-100); Mean Platelet Volume 8.9 fL (7.4-10.4); Monocytes # (auto) 0.73 K/uL (0.11-0.59); Monocytes % (auto) 8.9 %; Neutrophils % (auto) 74.7 %; Platelet Count 297 K/uL (130-400); RDW Coefficient of Variation 14.1 % (11.5-14.5); RDW Standard Deviation 46.6 fL (36.4-46.3); Red Blood Count 4.04 M/uL (4.7-6.1); White Blood Count 8.17 K/uL (4.8-10.8)
[2018-06-27 08:16] LABS: Mean Corpuscular Hgb Conc 32.2 g/dL (32-36)
[2018-06-27] MEDS: HEPARIN SOD 5,000 UNIT/0.5 ML VIAL SQ SCH ×2 (08:43→21:20)
[2018-06-27 08:47] LABS: Albumin Globulin Ratio 0.7 (0.9-2); Albumin Level 2.9 gm/dl (3.4-5.0); BUN Creatinine Ratio 51.9 (10-20); Bilirubin,Total 0.5 mg/dl (0.2-1); Calcium 9.9 mg/dl (8.5-10.1); Creatinine Clr Calc Pharmacy 90.8 ml/min; Globulin 4.2 gm/dl (2.5-4.0); Total Protein 7.1 gm/dl (6.4-8.2)
[2018-06-27 09:05] LABS: Magnesium 2.9 mg/dl (1.8-2.4)
--- NOTE | 2018-06-27 09:47 | Hospitalist Progress Note ---
Date of Service June 27, 2018 Assessment & Plan (1) Respiratory failure with hypoxia and hypercapnia: Pt presented to ER for lethargy, dysarthria and with Acute Respiratory failure with Hypoxia and Hypercapnia Upon ER arrival pt noted to be hypoxic at 82% on RA and was placed on 6L oxymask with oxygen sat of 93%. Afebrile, P: 80, BP: 138/75, R: reported at 20. WBC: 11.8, CO2: 40 Initial ABG was obtained and pH: 7.29, pCO2: 81, pO2: 171, HCO3: 38 After being on bipap pt alert and oriented and not as lethargic. Serial ABG 2 hours after on bipap pH: 7.22, pCO2: 92, pO2: 91, HCO3: 37 and 4hours after on bipap: pH: 7.24, pCO2: 93, pO2: 78, HCO3: 39 CT HEAD: no acute changes CTA CHEST: 1. No pulmonary emboli identified although exam moderately compromised by respiratory motion artifact. 2. Groundglass opacities within the lungs which favor atelectasis although mild pulmonary edema could appear similar. 3. Dilatation of the central pulmonary arteries which raises the possibility of pulmonary arterial hypertension. 4. Moderate cardiomegaly. 5. Marked muscular atrophy. -patient was admitted to intensive care unit -he was able to tolerate BIPAP and has been on nasal cannula -as per intensive unit care notes, he received IV diuretics and estimated to have net output of 3.5 liters -was transferred out of ICU on 06/22/18 -continue management of hypoxia with supplementary oxygen, bipap as needed current setting as IPAP 14, EPAP 8, rate 12, FiO2 60%, encourage use of bipap with sleep, diuresis -currently on 3 liters/minute nasal cannula/min -Patient will need outpatient appointment for [facility] Pulmonary clinic to see Dr. Dietz or his colleagues when able to be discharged to be set up with [facility] BiPAP machine and respiratory follow up [place] [id number] [facility], [address] [place] [address] Muscle Deconditioning In regards to the muscular atrophy seen radiographically with Chest CT that there is no elevations in creatinine kinase to suggest a muscle break down from a myositis will need to continue PT/OT as tolerated and encourage activities to prevent muscle deconditioning Patient's large body habitus and obesity and gout flare preventing strenuous activities (2) Fluid overload: Acute diastolic heart failure echocardiogram 65 to 70% with grade 1 diastolic dysfunction echocardiogram did not find evidence for pulmonary hypertension -patient diuresed well with IV Lasix on admission with Lasix 40 mg IV BID but on labs subsequent to ICU stay on 06/23/18 the creatinine is 1.45 and shows that patient's renal function very sensitive to IV diuresis and was placed on Lasix 40 mg orally BID on 06/23/18 -creatinine increase to 1.56 on 06/24/18, got morning oral Lasix 40 mg but lower extremities very swollen still and given Lasix 40 mg IV BID with albumin starting on 06/24/18 to resolve edema and give intravascular volume to kidneys -the Lasix with albumin course was completed on 06/26/18, Patient had diuresed well and resulting creatinine of 1.12 on 06/27/18 suggests that the albumin strategy has worked to diurese without injuring kidney function -will transition patient to oral Lasix 40 mg BID. monitor further in the hospital for urine outputs and weights and renal function, adjust as needed. monitor oxygen requirements, currently 3 liter/min O2 -keep low sodium diet and 1800 ml fluid restriction Acute Kidney injury secondary to diuretics and will monitor closely acute kidney injury appears to have improved by 06/27/18 (3) Hypothyroidism: 06/21/18 TSH: 3.35 06/24/18 TSH: 2.63 -continue home dose levothyroxine orally (4) HTN (hypertension): -hold home dose lisinopril due to acute kidney injury -blood pressure is controlled -on diuretic with Lasix (5) Dyslipidemia: -continue home dose simvastatin (6) Cellulitis of both lower extremities: was previously treated on last hospitalization continue skin care as needed leg erythema likely due to venous stasis continue diuresis History of Gout Acute gout flare of the wrist wrist pain is bilateral no wrist fractures on X ray holding off NSAID because of LIZZ started prednisone 20 mg daily on 06/24/18, continue uric acid 12.7 on 06/25/18 prn oxycodone and prn acetaminophen for pain control (7) Obesity: BMI: 42. continue PT and OT evaluations on this hospital stay DVT Prophylaxis -heparin subcut CODE STATUS as confirmed by patient and family of DNR and DO NOT INTUBATE Follows with Dr Sargent for routine care ase administrative assistant office manager reports that patient is in process [facility] Subjective patient on 3 liters/minute nasal cannula. compared to beginning of this admission the leg edema is much improved but still present with same color erythema. patient reports wrists pain and movements from gout flare are better. patient was able to use BIPAP to sleep at night for which he is encouraged to do every night with sleep. renal function better today. no chest pain, no abdomen pain no vomiting, supply chain logistics manager reports that patient is in process of awaiting insurance approval for [facility] Physical Exam Eyes: PERRL, conjunctivae normal, anicteric sclerae EOM intact bilaterally ENMT: external ear and nose normal, oropharynx normal Neck: trachea midline, no thyromegaly normal visual inspection Respiratory: normal respiratory effort Cardiovascular: Rate/Rhythm: regular rate and regular rhythm Gastrointestinal (Abdomen): normal bowel sounds, soft, nontender, no hepatosplenomegaly Musculoskeletal: Head/Neck/Chest: normocephalic and head atraumatic Extremities: + wrist abnormality (wrist tenderness) and + lower extremity abnor mal to inspection (bilateral lower extremity edema) Skin: + rash (redness of lower extremities) Neurologic: PERRL, EOMI, accommodation nl, no face palsy, no dysarthria Psychiatric: A+Ox3, euthymic affect Results & Data Vital Signs (Past 12 Hours) Vital Signs Temp Pulse Pulse Resp BP Pulse Ox 06/27/18 07:59 36.7 C 66 18 155/66 H 93 06/27/18 04:04 65 24 97 06/27/18 04:00 36.7 C 64 19 132/75 99 06/26/18 23:29 36.7 C 62 19 133/77 99 06/26/18 22:50 81 28 H 94 (1) Respiratory failure with hypoxia and hypercapnia Chronicity: acute on chronic Qualified Code(s): J96.21 - Acute and chronic respiratory failure with hypoxia; J96.22 - Acute and chronic respiratory failure with hypercapnia
[2018-06-27] MEDS: SIMVASTATIN 20 MG TAB PO SCH (21:21)
[2018-06-28] MEDS: LEVOTHYROXINE SODIUM 150 MCG TABLET PO SCH (05:02)
[2018-06-28 07:37] LABS: BUN Creatinine Ratio 46.9 (10-20); Calcium 9.4 mg/dl (8.5-10.1); Creatinine Clr Calc Pharmacy 90.8 ml/min; Magnesium 2.8 mg/dl (1.8-2.4); Potassium 3.9 mmol/L (3.5-5.1)
[2018-06-28] MEDS: predniSONE 20 MG TAB PO SCH (08:17)
[2018-06-28] MEDS: HEPARIN SOD 5,000 UNIT/0.5 ML VIAL SQ SCH ×2 (08:18→21:13)
[2018-06-28] MEDS: FUROSEMIDE 40 MG TAB PO SCH ×2 (08:18→19:53)
[2018-06-28] MEDS: EUCERIN CR 120 GM JAR EXT SCH ×2 (08:19→21:12)
--- NOTE | 2018-06-28 13:10 | Hospitalist Progress Note ---
Date of Service June 28, 2018 Assessment & Plan (1) Respiratory failure with hypoxia and hypercapnia: Pt presented to ER for lethargy, dysarthria and with Acute Respiratory failure with Hypoxia and Hypercapnia In ED, hypoxic at 82% on RA and was placed on 6 L oxymask with oxygen sat of 93%, currently down to 2 L -S/P Bipap -Work up- CT HEAD: no acute changes ; CTA CHEST: No PE, Ground glass opacities, possible PAT, marked muscular atrophy. -Patient was admitted to ICU--> Received IV diuretics with neg neg balance of 3.5 L--> tx out on 06/22/18. -continue management of hypoxia with supplementary oxygen, bipap as needed current setting as IPAP 14, EPAP 8, rate 12, FiO2 60% -Encourage use of bipap with sleep, diuresis -Patient will need outpatient appointment for [facility] Pulmonary clinic to see Dr. Dietz or his colleagues when able to be discharged to be set up with [facility] BiPAP machine and respiratory follow up Muscle Deconditioning In regards to the muscular atrophy seen radiographically with Chest CT that there is no elevations in creatinine kinase to suggest a muscle break down from a myositis -Continue PT/OT as tolerated and encourage activities to prevent muscle deconditioning -Patient's large body habitus and obesity and gout flare preventing strenuous activities (2) Fluid overload: Acute diastolic heart failure Echocardiogram 65 to 70% with grade 1 diastolic dysfunction Clinically improved and neg balance; Weight is down -Diuresis with IV lasix with transition to PO and than again received IV lasix dose, adjusted according to creatinine levels. -Transitioned to Lasix 40 mg PO BID - continue with this dose Acute Kidney injury Secondary to diuretics Resolved now -Monitor outpatient (3) Hypothyroidism: 06/21/18 TSH: 3.35 06/24/18 TSH: 2.63 -continue home dose levothyroxine orally (4) HTN (hypertension): -hold home dose lisinopril due to acute kidney injury--> Ok to restart today -blood pressure is controlled -on diuretic with Lasix (5) Dyslipidemia: -continue home dose simvastatin (6) Cellulitis of both lower extremities: was previously treated on last hospitalization continue skin care as needed Leg erythema sec to venous stasis History of Gout Acute gout flare of the wrist no wrist fractures on X ray holding off NSAID because of LIZZ started prednisone 20 mg daily on 06/24/18, continue to complete 5 day course. uric acid 12.7 on 06/25/18 prn oxycodone and prn acetaminophen for pain control (7) Obesity: BMI: 42. continue PT and OT evaluations on this hospital stay DVT Prophylaxis -heparin subcut CODE STATUS as confirmed by patient and family of DNR and DO NOT INTUBATE Follows with Dr Sargent for routine care Cleared for discharge to [facility] Ok to discharge today. Daughter aware about discharge plan Ok to discharge home today Subjective Patient is doing much better today. B/L wrist swelling is improving. Denies any worsening of SOB, cough. No chest pain, fever, chills. No nausea, vomiting,. On 2 L oxygen Physical Exam Physical Exam: GENERAL- AAOX3, No acute distress, Morbidly obese NECK- Obese LUNGS- Air entry bilaterally equal. No rales, rhonchi, crackles, wheezes heard. HEART- Regular rate and rhythm. No murmurs EXTREMITIES- B/L Edema SKIN- Venous stasis changes Results & Data Vital Signs (Past 12 Hours) Vital Signs Temp Pulse Pulse Resp BP BP Pulse Ox 06/28/18 12:00 36.6 C 89 18 131/73 94 06/28/18 08:00 72 06/28/18 06:57 36.6 C 72 19 134/76 94 06/28/18 03:33 37.3 C 73 20 132/84 94 06/28/18 02:09 75 16 91 (1) Respiratory failure with hypoxia and hypercapnia Chronicity: acute on chronic Qualified Code(s): J96.21 - Acute and chronic respiratory failure with hypoxia; J96.22 - Acute and chronic respiratory failure with hypercapnia
--- NOTE | 2018-06-28 14:14 | Discharge Summary ---
Date of Service June 28, 2018 Admission HPI Per Admitting Provider Pt is 77 y/o M with PMH HTN, dyslipidemia, hypothyroidism, gout, venous insufficiency presented to ER from [facility] for lethargy. It is reported pt was placed on oxygen last night at [facility]. Pt does not normally use oxygen. No known history of COPD/asthma, no reported tobacco use. Daughter reports that stopped in to see pt today and he was lethargic and she thought he may have had some dysarthria and he wasnt following commands well. He was sent to ER. It is reported that he hasnt been sleeping well at [facility], however daughter has noticed increased daytime lethargy and pt falling asleep during day even in conversation. Pts daughter reports that pt has needed to sleep in recliner for past couple of weeks. She reports pt has chronic cough. Denies any known fever/chills, N/V/D. Reports has been eating well however pt states doesn't like the food at [facility]. Pt with chronic lower leg weakness and right arm limited ROM. Has been using walker to ambulate recently. Denies urinary symptoms, palpitations, CP, dizziness, DUMAS, vision changes, palpitations, sore throat, choking, otalgia, rhinorrhea, abdominal pain, paresthesias. Pt with recent hospitalization on 06/07/18-06/13/18 for BLE cellulitis. He was initially placed on vancomycin and zosyn and then vancomycin was discontinued on 06/09/18. Had one out of two culture positive alpha strep that was determined to be contaminant. Antibiotics were changed to Rocephin and doxycycline IV on 06/10/18. Was given IV Lasix for LE edema. Had LIZZ and was discharged on once daily Lasix instead of twice daily. He had acute gout to left hand and was put on prednisone course. He was discharged on Keflex and doxycycline. Discharge to [facility] for rehab. Reports that legs look improved with less edema and redness Upon ER arrival pt noted to be hypoxic at 82% on RA and was placed on 6L oxymask with oxygen sat of 93%. ABG was obtained and pH: 7.29, pCO2: 81, pO2: 171, HCO3: 38 After being on bipap pt alert and not as lethargic. Principal Diagnosis 1. Acute respiratory failure with hypoxia and hypercapnia 2. Acute on chronic diastolic congestive heart failure 3. Acute kidney injury Secondary diagnosis on discharge 1. HTN 2. Dyslipidemia 3. Morbid obesity Discharge Exam GENERAL- AAOX3, No acute distress, Morbidly obese NECK- Obese LUNGS- Air entry bilaterally equal. No rales, rhonchi, crackles, wheezes heard. HEART- Regular rate and rhythm. No murmurs EXTREMITIES- B/L Edema SKIN- Venous stasis changes Discharge Data Allergies Allergy/AdvReac Type Severity Reaction Status Date / Time No Known Allergies Allergy Verified 06/07/18 17:05 Consultations 06/21/18 11:18 ED Decision to Admit Stat 06/21/18 16:49 Consult Case Management - Discharge Planning Routine Consult Education Rn Routine 06/22/18 12:43 Consult Pulmonology Routine Ordered Studies 06/21/18 09:42 CT head/brain wo con Stat 06/21/18 11:18 CT angio chest PE protocol Stat Hospital Course (1) Respiratory failure with hypoxia and hypercapnia: Pt presented to ER for lethargy, dysarthria and with Acute Respiratory failure with Hypoxia and Hypercapnia In ED, hypoxic at 82% on RA and was placed on 6 L oxymask with oxygen sat of 93%, currently down to 2 L -S/P Bipap -Work up- CT HEAD: no acute changes ; CTA CHEST: No PE, Ground glass opacities, possible PAT, marked muscular atrophy. -Patient was admitted to ICU--> Received IV diuretics with neg neg balance of 3 .5 L--> tx out on 06/22/18. -continue management of hypoxia with supplementary oxygen, bipap as needed current setting as IPAP 14, EPAP 8, rate 12, FiO2 60% -Encourage use of bipap with sleep, diuresis -Patient will need outpatient appointment for [facility] clinic to see Dr. Dietz or his colleagues when able to be discharged to be set up with trilogy BiPAP machine and respiratory follow up Muscle Deconditioning In regards to the muscular atrophy seen radiographically with Chest CT that there is no elevations in creatinine kinase to suggest a muscle break down from a myositis -Continue PT/OT as tolerated and encourage activities to prevent muscle deconditioning -Patient's large body habitus and obesity and gout flare preventing strenuous activities (2) Fluid overload: Acute diastolic heart failure Echocardiogram 65 to 70% with grade 1 diastolic dysfunction Clinically improved and neg balance; Weight is down -Diuresis with IV lasix with transition to PO and than again received IV lasix dose, adjusted according to creatinine levels. -Transitioned to Lasix 40 mg PO BID - continue with this dose Acute Kidney injury Secondary to diuretics Resolved now -Monitor outpatient (3) Hypothyroidism: 06/21/18 TSH: 3.35 06/24/18 TSH: 2.63 -continue home dose levothyroxine orally (4) HTN (hypertension): -hold home dose lisinopril due to acute kidney injury--> Ok to restart today -blood pressure is controlled -on diuretic with Lasix (5) Dyslipidemia: -continue home dose simvastatin (6) Cellulitis of both lower extremities: was previously treated on last hospitalization continue skin care as needed Leg erythema sec to venous stasis History of Gout Acute gout flare of the wrist no wrist fractures on X ray holding off NSAID because of LIZZ started prednisone 20 mg daily on 06/24/18, continue to complete 5 day course. uric acid 12.7 on 06/25/18. Eventually needs to be started on allopurinol outpatient. prn oxycodone and prn acetaminophen for pain control (7) Obesity: BMI: 42. continue PT and OT evaluations on this hospital stay DVT Prophylaxis -heparin subcut CODE STATUS as confirmed by patient and family of DNR and DO NOT INTUBATE Follows with Dr Sargent for routine care Cleared for discharge to [facility] Ok to discharge today. Daughter aware about discharge plan Total Time Total Time Spent Total Time Spent (In Minutes): 40 minutes Discharge Plan Discharge Items Patient Disposition: Transfer [facility] Reason For Visit: ACUTE RESPIRATORY FAILURE Discharge Diagnosis: Acute respiratory failure with hypoxia and hypercapnia Acute congestive heart failure, diastolic Discharge Goals: Decrease discomfort and Improve disease control Activity: Resume your previous activity Non-emergency contact: Primary Care Provider Call non-emergency contact if: your symptoms worsen Follow-up/Referrals: Xiomy Carbajal [Primary Care Provider] - Diet: Heart Healthy, Low Fat and Low Sodium (2gm) Addtl Provider Instructions: MEDICATION CHANGES: 1. New medication- Prednisone 40 mg for 3 more days to complete 5 day course for gout flare 2. Lasix increased to 40 mg twice a day from daily 3. Allopurinol started Prescriptions: New furosemide 40 mg Tablet 40 mg PO [id number] 30 Days Qty: 30 RF: 0 prednisone 20 mg Tablet 20 mg PO DAILY 3 Days Qty: 3 RF: 0 Continued levothyroxine [Synthroid] 150 mcg Tablet 150 mcg PO [id number]@0630 30 Days Qty: 15 RF: 0 levothyroxine 150 mcg tablet 225 mcg PO [id number]@0630 30 Days Qty: 15 RF: 0 cyanocobalamin (vitamin B-12) [Vitamin B-12] 1,000 mcg Tablet 1,000 mcg PO QPM RF: 0 simvastatin 20 mg tablet 20 mg PO QPM RF: 0 lisinopril 40 mg tablet 40 mg PO QPM RF: 0 cholecalciferol (vitamin D3) [Vitamin D3] 1,000 unit Tablet 1,000 units PO QPM RF: 0 Florastor 250 mg capsule 250 mg PO BID Qty: 20 RF: 0 Discontinued furosemide 40 mg Tablet 40 mg PO QAM 30 Days Qty: 30 RF: 0 Stand-Alone Forms: [facility] [employer] [facility]/Other Patient Handouts: Prediabetes, Diabetes Meal Planning Discharge Orders: Discharge Order (Routine); Ordered 06/28/18 Ordered By: Ramonita Troy Skilled Items Patient informed of condition?: Yes DNR: Yes Discharge Level of Care: Skilled Communicable Disease: No Discharge Prognosis: Stable Admission Data Admit Date/Time: 06/21/18 14:54 Attending Provider: Ramonita Troy Admit Provider: Jasmeet Guevara Primary Care Provider: Xiomy Carbajal Other Providers: Jasmeet Guevara ; Ashish Ng ; Sae Dietz ; Tavo Monsalve Service: Telemetry
[2018-06-28] MEDS: SIMVASTATIN 20 MG TAB PO SCH (21:13)
[2018-06-29] MEDS: ACETAMINOPHEN 325 MG TAB PO PRN (01:55)
[2018-06-29] MEDS: LEVOTHYROXINE SODIUM PO SCH (05:50)
[2018-06-29] MEDS: FUROSEMIDE 40 MG TAB PO SCH ×2 (08:02→16:56)
[2018-06-29] MEDS: EUCERIN CR 120 GM JAR EXT SCH (08:02)
[2018-06-29] MEDS: predniSONE 20 MG TAB PO SCH (08:02)
--- NOTE | 2018-06-29 09:47 | Hospitalist Progress Note ---
Date of Service June 29, 2018 Assessment & Plan (1) Respiratory failure with hypoxia and hypercapnia: Pt presented to ER for lethargy, dysarthria and with Acute Respiratory failure with Hypoxia and Hypercapnia In ED, hypoxic at 82% on RA and was placed on 6 L oxymask with oxygen sat of 93%, currently down to 2 L -S/P Bipap -Work up- CT HEAD: no acute changes ; CTA CHEST: No PE, Ground glass opacities, possible PAT, marked muscular atrophy. -Patient was admitted to ICU--> Received IV diuretics with neg neg balance of 3.5 L--> tx out on 06/22/18. -continue management of hypoxia with supplementary oxygen, bipap as needed current setting as IPAP 14, EPAP 8, rate 12, FiO2 60% -Encourage use of bipap with sleep, diuresis -Patient will need outpatient appointment for [facility] Pul[facility] clinic to see Dr. Dietz or his colleagues -BIPAP will need to be set up Muscle Deconditioning In regards to the muscular atrophy seen radiographically with Chest CT that there is no elevations in creatinine kinase to suggest a muscle break down from a myositis -Continue PT/OT as tolerated and encourage activities to prevent muscle deconditioning -Patient's large body habitus and obesity and gout flare preventing strenuous activities (2) Fluid overload: Acute diastolic heart failure Echocardiogram 65 to 70% with grade 1 diastolic dysfunction Clinically improved and neg balance; Weight is down -Diuresis with IV lasix with transition to PO and than again received IV lasix dose, adjusted according to creatinine levels. -Transitioned to Lasix 40 mg PO BID - continue with this dose Acute Kidney injury Secondary to diuretics Resolved now -Monitor outpatient (3) Hypothyroidism: 06/21/18 TSH: 3.35 06/24/18 TSH: 2.63 -continue home dose levothyroxine orally (4) HTN (hypertension): -On lisinopril, lasix -blood pressure is controlled (5) Dyslipidemia: -continue home dose simvastatin (6) Cellulitis of both lower extremities: was previously treated on last hospitalization continue skin care as needed Leg erythema sec to venous stasis History of Gout Acute gout flare of the wrist no wrist fractures on X ray holding off NSAID because of LIZZ started prednisone 20 mg daily on 06/24/18, continue to complete 5 day course. uric acid 12.7 on 06/25/18. Eventually needs to be started on allopurinol outpatient. prn oxycodone and prn acetaminophen for pain control (7) Obesity: BMI: 42. continue PT and OT evaluations on this hospital stay DVT Prophylaxis -heparin subcut CODE STATUS as confirmed by patient and family of DNR and DO NOT INTUBATE Follows with Dr Sargent for routine care Cleared for discharge to [facility] Was discharged yesterday, but unable to go as arrangements could not be made. Will discharge to [facility] today Subjective Patient is doing well. B/L wrist swelling is improving. Denies any worsening of SOB, cough. No chest pain, fever, chills. No nausea, vomiting,. Eager to be discharged Was unable to go yesterday as arrangements couldnt be made for discharge On 2 L oxygen Physical Exam Physical Exam: GENERAL- AAOX3, No acute distress, Morbidly obese NECK- Obese LUNGS- Air entry bilaterally equal. No rales, rhonchi, crackles, wheezes heard. HEART- Regular rate and rhythm. No murmurs EXTREMITIES- B/L Edema SKIN- Venous stasis changes Results & Data Vital Signs (Past 12 Hours) Vital Signs Temp Pulse Pulse Resp BP BP Pulse Ox 06/29/18 07:01 36.8 C 69 20 150/79 H 94 06/29/18 03:04 36.6 C 73 20 161/81 H 92 06/29/18 01:09 66 22 91 06/29/18 00:00 68 06/28/18 23:28 36.7 C 65 22 153/84 H 96 06/28/18 22:33 70 20 92 (1) Respiratory failure with hypoxia and hypercapnia Chronicity: acute on chronic Qualified Code(s): J96.21 - Acute and chronic respiratory failure with hypoxia; J96.22 - Acute and chronic respiratory failure with hypercapnia
[2018-06-29] MEDS: HEPARIN SOD 5,000 UNIT/0.5 ML VIAL SQ SCH (10:56)
== END 2018-06-29 18:07 | DRG 189 ==
LOC: ED 09:12 → 1E 14:54 → SUATTDRO 14:54 → 1E 16:00 → 2S 06-22 16:50

== ENCOUNTER 2020-06-13 12:51 | Inpatient (IN) ==
[~2020-06-13 12:51] MED LIST: ALBUMIN 25% 12.5 GM/50 ML VIAL IV SCH
[2020-06-13 13:37] LABS: Mean Corpuscular Hgb Conc 35.3 g/dL (32-36); Mean Platelet Volume 10.3 fL (7.4-10.4); Platelet Count 372 K/uL (130-400)
[2020-06-13 13:49] LABS: Base Excess VBG 10.7 mEq/L; Oxygen Saturation VBG 63.6 %; pH VBG 7.39 (7.36-7.41)
[2020-06-13 13:57] LABS: Albumin Level 4.2 gm/dl (3.4-5.0); BUN Creatinine Ratio 15.6 (10-20); Calcium 9.7 mg/dl (8.5-10.1); Creatinine Clr Calc Pharmacy 57.1 ml/min; Est GFR (African American) 43.8; Est GFR (Non-African American) 37.8; Magnesium 2.3 mg/dl (1.8-2.4); Potassium 2.6 mmol/L (3.5-5.1)
--- NOTE | 2020-06-13 14:00 | Emergency Department Note ---
History of Present Illness General Chief Complaint: Abdominal Pain Stated Complaint: abd pain Time Seen by Provider: 06/13/20 13:15 History of Present Illness Provider Complaint: abdominal pain Onset (ago): 1 day(s) Pain Consistency: constant Location: RLQ Radiation: none Severity: moderate Maximum Pain Intensity: 6 Current Pain Intensity: 6 Quality: + stabbing and + sharp Relieved By: + nothing Exacerbated By: + nothing Context: no foreign travel, no possible food poisoning, no sick contacts, no recent antibiotic use and no recent surgery/procedure Associated Symptoms: + nausea, + vomiting and + breathing difficulty; no diarrhea, no fever, no chills, no constipation, no dysuria, no hematemesis, no hematochezia, no melena, no hematuria, no syncope, no headache, no neck pain, no back pain, no chest pain and no numbness Home Medications Medication Instructions Recorded Confirmed Type amlodipine 5 mg tablet 5 mg PO QAM 11/20/18 06/13/20 History aspirin 81 mg tablet,delayed 81 mg PO QAM 11/20/18 06/13/20 History release simvastatin 20 mg tablet 20 mg PO HS tab 11/20/18 06/13/20 History bumetanide 1 mg tablet 1.5 mg PO BID tab 01/08/19 06/13/20 History cholecalciferol (vitamin D3) 25 1,000 units PO QAM 01/08/19 06/13/20 History mcg (1,000 unit) capsule colchicine 0.6 mg capsule 0.6 mg PO QAM 01/08/19 06/13/20 History CPAP Machine #1 ea 02/07/19 06/13/20 Rx Oxygen Home #1 ea 05/13/19 06/13/20 Rx calcium carbonate [Tums] 200 mg PO BID PRN 05/16/20 06/13/20 History bromfenac [Prolensa] 1 drp OPHTHALMIC (EYE) DAILY 06/13/20 06/13/20 History difluprednate [Durezol] See Rx Instructions .ROUTE .COMPLEX 06/13/20 06/13/20 History gatifloxacin See Rx Instructions .ROUTE .COMPLEX 06/13/20 06/13/20 History levothyroxine 175 mcg PO DAILYBB 06/13/20 06/13/20 History Allergies Allergy/AdvReac Type Severity Reaction Status Date / Time No Known Allergies Allergy Verified 06/13/20 15:37 Past Med/Surg History Medical History (Updated 06/13/20 @ 16:40 by Yazan Finn) Dyslipidemia GERD (gastroesophageal reflux disease) HTN (hypertension) Hx of gout Hypothyroidism Neuropathy Obesity On home oxygen therapy 4 LPM qHS Restrictive lung disease Sleep apnea BiPAP + O2 at 4 LPM Venous insufficiency Surgical History History of cataract surgery RT. 06/03/20. [facility]. 2mg versed, 50mcg fentanyl. no issues reported. 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 current occupational status: retired Feels Safe at Home: Yes Assistive Devices: BiPap, Denture - Upper, Denture - Lower, Oxygen - at Night, Walker and Wheelchair Review of Systems A total of 10 systems reviewed and were otherwise negative Physical Exam Vital Signs: Vital Signs - 24 hr 06/13/20 13:00 06/13/20 13:06 06/13/20 13:07 Temperature 37.0 C Temperature Source Oral Pulse Rate 97 H 101 H 97 H Pulse Rate from Sp O2 Sensor 92 H 91 H Respiratory Rate 27 H 21 22 Respiratory Effort / Characteristics Non-Labored Sponta neous Respiratory Depth Normal Blood Pressure 128/90 130/80 Blood Pressure Komal n 102 96 Pulse Oximetry 94 87 L 94 Oxygen Delivery Me thod Nasal Cannula Room Air Nasal Cannula Oxygen Flow Rate 4 4 Sepsis Recent Feve r Within 48 Hours No Sepsis New/Unexpla ined Change in Men deanna Status No Sepsis Action Take n by Nursing No Action Required 06/13/20 13:08 06/13/20 13:10 06/13/20 13:20 Temperature Temperature Source Pulse Rate 93 H 96 H Pulse Rate from Sp O2 Sensor 95 H 94 H Respiratory Rate 28 H 27 H Respiratory Effort / Characteristics Respiratory Depth Blood Pressure Blood Pressure Komal n Pulse Oximetry 93 93 Oxygen Delivery Me thod Nasal Cannula Nasal Cannula Nasal Cannula Oxygen Flow Rate 4 4 4 Sepsis Recent Feve r Within 48 Hours Sepsis New/Unexpla ined Change in Men deanna Status Sepsis Action Take n by Nursing 06/13/20 13:30 06/13/20 13:31 06/13/20 13:40 Temperature Temperature Source Pulse Rate 97 H 97 H 96 H Pulse Rate from Sp O2 Sensor 97 H 90 93 H Respiratory Rate 37 H 30 H 24 Respiratory Effort / Characteristics Respiratory Depth Blood Pressure 130/87 Blood Pressure Komal n 101 Pulse Oximetry 93 93 93 Oxygen Delivery Me thod Nasal Cannula Nasal Cannula Nasal Cannula Oxygen Flow Rate 4 4 4 Sepsis Recent Feve r Within 48 Hours Sepsis New/Unexpla ined Change in Men deanna Status Sepsis Action Take n by Nursing 06/13/20 13:50 06/13/20 14:00 06/13/20 14:19 Temperature Temperature Source Pulse Rate 98 H 97 H 102 H Pulse Rate from Sp O2 Sensor 92 H 97 H 99 H Respiratory Rate 31 H 43 H 32 H Respiratory Effort / Characteristics Respiratory Depth Blood Pressure 126/83 Blood Pressure Komal n 97 Pulse Oximetry 92 93 95 Oxygen Delivery Me thod Nasal Cannula Nasal Cannula Nasal Cannula Oxygen Flow Rate 4 4 4 Sepsis Recent Feve r Within 48 Hours Sepsis New/Unexpla ined Change in Men deanna Status Sepsis Action Take n by Nursing 06/13/20 14:20 06/13/20 14:30 06/13/20 14:31 Temperature Temperature Source Pulse Rate 100 H 99 H 98 H Pulse Rate from Sp O2 Sensor 94 H 98 H 98 H Respiratory Rate 17 25 H 28 H Respiratory Effort / Characteristics Respiratory Depth Blood Pressure 130/85 Blood Pressure Komal n 100 Pulse Oximetry 94 95 95 Oxygen Delivery Me thod Nasal Cannula Nasal Cannula Nasal Cannula Oxygen Flow Rate 4 4 4 Sepsis Recent Feve r Within 48 Hours Sepsis New/Unexpla ined Change in Men deanna Status Sepsis Action Take n by Nursing 06/13/20 14:40 06/13/20 14:50 06/13/20 15:00 Temperature Temperature Source Pulse Rate 100 H 97 H 96 H Pulse Rate from Sp O2 Sensor 100 H 97 H 93 H Respiratory Rate 24 29 H 32 H Respiratory Effort / Characteristics Respiratory Depth Blood Pressure 120/89 Blood Pressure Komal n 99 Pulse Oximetry 95 95 95 Oxygen Delivery Me thod Nasal Cannula Nasal Cannula Nasal Cannula Oxygen Flow Rate 4 4 4 Sepsis Recent Feve r Within 48 Hours Sepsis New/Unexpla ined Change in Men deanna Status Sepsis Action Take n by Nursing 06/13/20 15:01 06/13/20 15:10 Temperature Temperature Source Pulse Rate 98 H 102 H Pulse Rate from Sp O2 Sensor 96 H 103 H Respiratory Rate 25 H 27 H Respiratory Effort / Characteristics Respiratory Depth Blood Pressure Blood Pressure Komal n Pulse Oximetry 95 96 Oxygen Delivery Me thod Nasal Cannula Nasal Cannula Oxygen Flow Rate 4 4 Sepsis Recent Feve r Within 48 Hours Sepsis New/Unexpla ined Change in Men deanna Status Sepsis Action Take n by Nursing Physical Exam: Physical Exam GENERAL: He is oriented to person, place, and time. He appears well-developed and well-nourished. He does not appear distressed. HENT: Exam performed. - Head: Normocephalic and atraumatic. - Right Ear: External ear normal. No mastoid tenderness. - Left Ear: External ear normal. No mastoid tenderness. - Mouth/Throat: The oropharynx is clear and moist. No trismus in the jaw. No dental abscesses or uvula swelling. No oropharyngeal exudate or tonsillar abscesses. EYES: Conjunctivae and EOM are normal. Pupils are equal, round, and reactive to light. Right eye exhibits no discharge. Left eye exhibits no discharge. No scleral icterus. NECK: Normal range of motion. Neck supple. No JVD present. No spinous process tenderness present. No carotid bruit present. No rigidity. No tracheal deviation and normal range of motion present. No Brudzinski's sign and no Kernig's sign noted. CV: Normal rate, regular rhythm, normal heart sounds and intact distal pulses. There is no peripheral edema. Palpable radial pulses bue. PULM/CHEST: Diminished breath sounds bilaterally. ABD: Abdomen is distended. Diffuse pain on palpation of the abdomen. MUSC/SKEL: Normal range of motion. There is no peripheral edema, tenderness or deformity. LYMPH: No cervical adenopathy. NEURO: He is alert and oriented to person, place, and time. He has normal strength. No cranial nerve deficit or sensory deficit. Coordination and gait normal. GCS eye subscore is 4. GCS verbal subscore is 5. GCS motor subscore is 6. Cerebellar tests wnl. SKIN: Skin is warm and dry. He is not diaphoretic. PSYCH: He has a normal mood and affect. Behavior is normal. Judgment and thought content normal. Course Course 1315: The patient was evaluated in room B5. A complete history and physical exam was performed Cardiac monitoring: An order was placed for continuous cardiac monitoring. The monitor shows a rate of 100 with sinus rhythm Patient was hypoxic on room air 87%, patient placed on 2 L nasal cannula which improved his oxygen saturation. 1410: Patient's chest x-ray shows possible free air in the diaphragm. Patient's creatinine is elevated we will obtain CT of the abdomen without contrast to confirm the diagnosis. 1423: Discussed the case with radiology Dr. Painting He states there is no free air under the abdomen but the patient does have a possible large bowel obstruction due to his severe constipation. Labs show leukocytosis of 16.4. Potassium 2.6. Creatinine 1.69. Potassium placement started intravenously in the emergency department. Magnesium within normal limits. 1456: Vital signs stable on supplemental oxygen. Patient's D-dimer is elevated. Given the patient's elevated creatinine level and his age we will hold off on CT of the chest at this time. Discussed the case with [facility] hospitalist who stated to admit to Dr. Caceres. She will evaluate the patient for anticoagulation. Administered Medications Discontinued Medications Potassium Chloride (K Aman / Wtr) 10 meq in 100 mls @ 100 mls/hr IV Q1H YOSSI Stop: 06/13/20 16:14 Last Admin: 06/13/20 15:07 Dose: 100 mls/hr Documented by: [id number] Medical Decision Making Laboratory Data Result diagrams: 06/13/20 13:06 06/13/20 13:06 Lab Results 06/13/20 06/13/20 06/13/20 Range/Units 12:08 12:08 13:06 WBC 16.43 H (4.8-10.8) K/uL RBC 5.19 (4.7-6.1) M/uL Hgb 16.0 (14.0-18.0) g/dL Hct 45.3 (42-52) % MCV 87.3 (80-100) fL MCH 30.8 (25-34) pg MCHC 35.3 (32-36) g/dL RDW Std Deviation 45.8 (36.4-46.3) fL RDW Coeff of Maximilian 14.2 (11.5-14.5) % Plt Count 372 (130-400) K/uL MPV 10.3 (7.4-10.4) fL Neutrophils % (Manual) 94.0 % Lymphocytes % (Manual) 1.7 % Monocytes % (Manual) 4.3 % Neutrophils # (Manual) 15.44 H (1.4-6.5) K/uL Total Absolute Neuts 15.44 H (1.4-6.5) K/uL Lymphocytes # (Manual) 0.28 L (1.2-3.4) K/uL Total Abs Lymphocytes 0.28 L (1.2-3.4) K/uL Monocytes # (Manual) 0.71 H (0.11-0.59) K/uL PT (9.0-12.0) Seconds INR (0.9-1.1) APTT (21.0-31.0) Seconds PTT Ratio D-Dimer (0-500) ug/L FEU VBG pH (7.36-7.41) VBG pCO2 (38-50) mmHg VBG pO2 mmHg VBG HCO3 mmol/L VBG O2 Saturation % VBG Base Excess mEq/L Barometric Pressure mm/Hg Sodium (136-145) mmol/L Potassium (3.5-5.1) mmol/L Chloride (98-107) mmol/L Carbon Dioxide (21-32) mmol/L Anion Gap (3-11) BUN (7-18) mg/dl Creatinine (0.6-1.4) mg/dl Est Cr Clr Drug Dosing ml/min Est GFR ( Amer) Est GFR (Non-Af Amer) BUN/Creatinine Ratio (10-20) Glucose (70-99) mg/dl Calcium (8.5-10.1) mg/dl Magnesium (1.8-2.4) mg/dl Total Bilirubin (0.2-1) mg/dl AST (15-37) U/L ALT (12-78) U/L Alkaline Phosphatase (45-117) U/L Troponin I (0-0.045) ng/ml NT-Pro-B Natriuret Pep (0-1800) pg/ml Total Protein (6.4-8.2) gm/dl Albumin (3.4-5.0) gm/dl Globulin (2.5-4.0) gm/dl Albumin/Globulin Ratio (0.9-2) Lipase (73-393) U/L COVID-19 Eval Order CovFluRsv at [facility] SARS-CoV-2 (PCR) NEGATIVE (Negative) Influenza Type A (PCR) Negative (Neg) Influenza Type B (PCR) Negative (Neg) RSV (RT-PCR) Negative (Neg) 06/13/20 06/13/20 06/13/20 Range/Units 13:06 13:37 13:37 WBC (4.8-10.8) K/uL RBC (4.7-6.1) M/uL Hgb (14.0-18.0) g/dL Hct (42-52) % MCV (80-100) fL MCH (25-34) pg MCHC (32-36) g/dL RDW Std Deviation (36.4-46.3) fL RDW Coeff of Maximilian (11.5-14.5) % Plt Count (130-400) K/uL MPV (7.4-10.4) fL Neutrophils % (Manual) % Lymphocytes % (Manual) % Monocytes % (Manual) % Neutrophils # (Manual) (1.4-6.5) K/uL Total Absolute Neuts (1.4-6.5) K/uL Lymphocytes # (Manual) (1.2-3.4) K/uL Total Abs Lymphocytes (1.2-3.4) K/uL Monocytes # (Manual) (0.11-0.59) K/uL PT 11.4 (9.0-12.0) Seconds INR 1.1 (0.9-1.1) APTT 22.5 (21.0-31.0) Seconds PTT Ratio 0.9 D-Dimer 1070 H* (0-500) ug/L FEU VBG pH 7.39 (7.36-7.41) VBG pCO2 66 H (38-50) mmHg VBG pO2 34 mmHg VBG HCO3 39 mmol/L VBG O2 Saturation 63.6 % VBG Base Excess 10.7 mEq/L Barometric Pressure 733.2 mm/Hg Sodium 137 (136-145) mmol/L Potassium 2.6 L (3.5-5.1) mmol/L Chloride 94 L (98-107) mmol/L Carbon Dioxide 36 H (21-32) mmol/L Anion Gap 8.0 (3-11) BUN 26 H (7-18) mg/dl Creatinine 1.69 H (0.6-1.4) mg/dl Est Cr Clr Drug Dosing 57.1 ml/min Est GFR ( Amer) 43.8 Est GFR (Non-Af Amer) 37.8 BUN/Creatinine Ratio 15.6 (10-20) Glucose 143 H (70-99) mg/dl Calcium 9.7 (8.5-10.1) mg/dl Magnesium 2.3 (1.8-2.4) mg/dl Total Bilirubin 0.8 (0.2-1) mg/dl AST 27 (15-37) U/L ALT 38 (12-78) U/L Alkaline Phosphatase 106 (45-117) U/L Troponin I 0.030 (0-0.045) ng/ml NT-Pro-B Natriuret Pep 602 (0-1800) pg/ml Total Protein 7.4 (6.4-8.2) gm/dl Albumin 4.2 (3.4-5.0) gm/dl Globulin 3.1 (2.5-4.0) gm/dl Albumin/Globulin Ratio 1.3 (0.9-2) Lipase 167 (73-393) U/L COVID-19 Eval Order SARS-CoV-2 (PCR) (Negative) Influenza Type A (PCR) (Neg) Influenza Type B (PCR) (Neg) RSV (RT-PCR) (Neg) Imaging Data Radiologist's Impression: Chest X-Ray 06/13/20 13:15 XR chest 1V portable HISTORY: Hypoxia. COMPARISON: None. FINDINGS: There are low lung volumes. Progressive perihilar interstitial/vascular thickening. The heart is mildly enlarged. No pneumothorax. Moderate gaseous distention of the bowel. IMPRESSION: 1. Progressive perihilar interstitial/vascular thickening suggestive of mild pulmonary edema. 2. Low lung volumes, unchanged. 3. Gaseous distention of the bowel which is partially visualized on this study. This will be better assessed on the same day abdomen and pelvis CT. ACT 112: Negative or not required by law. Electronically signed by: Tal Painting M.D. 06/13/2020 2:16 PM Abdomen/Pelvis CT 06/13/20 14:06 CT OF THE ABDOMEN AND PELVIS WITHOUT CONTRAST CLINICAL HISTORY: Evaluate for perforation. COMPARISON STUDY: No previous studies for comparison. TECHNIQUE: Axial images of the abdomen and pelvis were obtained without IV contrast. Images were reviewed in the axial, sagittal, and coronal planes. Automated exposure control was utilized for the study. A dose lowering technique was utilized adhering to the principles of ALARA. FINDINGS: Opacities within the lower lungs favor atelectasis. Note is made of cardiomegaly. Evaluation of the abdomen and pelvis is suboptimal on this unenhanced exam. A few water attenuation hepatic lesions are suboptimally assessed on this unenhanced exam but favor cysts. There is no biliary or pancreatic ductal dilatation. The spleen, adrenal glands and pancreas are unremarkable. There is no peripancreatic infiltration. There is mild to moderate bilateral renal cortical thinning. No hydronephrosis is present. There is a 5 mm left renal calculus. There are no ureteral calculi. There is no lymphadenopathy. Diffuse muscular atrophy is present. There is marked colonic dilatation due to to a large amount of stool within the distal sigmoid colon and the rectum. Colon measures up to 11 cm in caliber. There is moderate small bowel dilatation. The small bowel is fluid-filled with multiple air-fluid levels. The appendix is normal. No acute fracture or suspicious lesion is present. There is no ascites. No pneumatosis, free air or portal venous gas is present. IMPRESSION: 1. No free air. 2. Marked colonic and moderate small bowel dilatation due to to a large amount of stool within the distal sigmoid colon and rectum which results in a functional colonic obstruction. 3. Left-sided nephrolithiasis. No ureteral calculi. 4. Ground glass opacities within the lower lungs consistent with atelectasis. ACT 112: Negative or not required by law. Electronically signed by: Octavio Castanon M.D. 06/13/2020 2:28 PM ECG Data Indication: abdominal pain and SOB/dyspnea Rate (beats per minute): 98 Findings: + RBBB; no ST elevation Additional Comments: TN 272 QRS 160 QTC 554 MDM Narrative 1315: The patient was evaluated in room B5. A complete history and physical exam was performed Cardiac monitoring: An order was placed for continuous cardiac monitoring. The monitor shows a rate of 100 with sinus rhythm Patient was hypoxic on room air 87%, patient placed on 2 L nasal cannula which improved his oxygen saturation. 1410: Patient's chest x-ray shows possible free air in the diaphragm. There is also cardiomegaly and cephalization indicating CHF exacerbation. Patient's creatinine is elevated we will obtain CT of the abdomen without contrast to confirm the diagnosis. 1423: Discussed the case with radiology Dr. Painting He states there is no free air under the abdomen but the patient does have a possible large bowel obstruction due to his severe constipation. Labs show leukocytosis of 16.4. Potassium 2.6. Creatinine 1.69. We will hold off on Lasix at this time as the patient's hypokalemia and elevated creatinine level. Potassium placement started intravenously in the emergency department. Magnesium within normal limits. 1456: Vital signs stable on supplemental oxygen. Patient's D-dimer is elevated. Given the patient's elevated creatinine level and his age we will hold off on CT of the chest at this time. Discussed the case with [facility] hospitalist who stated to admit to Dr. Caceres. She will evaluate the patient for anticoagulation. Impression & Plan Hypoxia, Hypokalemia, Fluid overload Critical Care Time Critical Care Time: Yes Total Critical Care Time: 37 I have personally spent greater than 37 minutes of critical care time in the direct management of this patient. This includes bedside care, interpretation of diagnostic studies, and testing, discussion with consultants, patient, and family members, and other required patient management activities. This 37 minutes is in excess of all separately billable procedures. Discharge Plan Visit Data Chief Complaint: Abdominal Pain Stated Complaint: abd pain ED Provider: Yazan Finn Discharge Problem: Hypoxia, Hypokalemia, Fluid overload Patient Disposition: Admitted As Inpatient Forms Stand Alone Forms: My [facility] Emtrics Prescriptions Prescriptions: No Action (DME) CPAP Machine Misc See Rx Instructions .ROUTE .MEDSUPPLY Qty: 1 RF: 0 (DME) Oxygen Home Liters Per Minute See Rx Instructions .ROUTE .MEDSUPPLY Qty: 1 RF: 0 amlodipine 5 mg tablet 5 mg PO QAM RF: 0 aspirin 81 mg tablet,delayed release (DR/EC) 81 mg PO QAM RF: 0 simvastatin 20 mg tablet 20 mg PO HS RF: 0 cholecalciferol (vitamin D3) 1,000 unit capsule 1,000 units PO QAM RF: 0 bumetanide 1 mg tablet 1.5 mg PO BID RF: 0 colchicine 0.6 mg capsule 0.6 mg PO QAM RF: 0 levothyroxine 175 mcg tablet 175 mcg PO DAILYBB RF: 0 Durezol 0.05 % drops See Rx Instructions .ROUTE .COMPLEX RF: 0 gatifloxacin 0.5 % drops See Rx Instructions .ROUTE .COMPLEX RF: 0 Prolensa 0.07 % drops 1 drp ophthalmic (eye) DAILY RF: 0 calcium carbonate [Tums] 200 mg calcium (500 mg) Tablet,Chewable 200 mg PO BID PRN (Reason: gerd) RF: 0 Referrals Referrals: Perla Saxena MD [Primary Care Provider] -
[2020-06-13 14:01] LABS: Albumin Globulin Ratio 1.3 (0.9-2); Bilirubin,Total 0.8 mg/dl (0.2-1); Globulin 3.1 gm/dl (2.5-4.0); Total Protein 7.4 gm/dl (6.4-8.2); Troponin I 0.03 ng/ml (0-0.045)
[2020-06-13 14:03] LABS: INR 1.1 (0.9-1.1); Partial Thromboplastin Ratio 0.9; Partial Thromboplastin Time 22.5 Seconds (21.0-31.0); Prothrombin Time 11.4 Seconds (9.0-12.0)
[2020-06-13 14:06] LABS: ALC (manual) 0.28 K/uL (1.2-3.4); ANC (manual) 15.44 K/uL (1.4-6.5); Hematocrit (blood only) 45.3 % (42-52); Lymphocytes # (manual) 0.28 K/uL (1.2-3.4); Lymphocytes % (manual) 1.7 %; Mean Corpuscular Hemoglobin 30.8 pg (25-34); Mean Corpuscular Volume 87.3 fL (80-100); Monocytes # (manual) 0.71 K/uL (0.11-0.59); Monocytes % (manual) 4.3 %; Neutrophils # (manual) 15.44 K/uL (1.4-6.5); RDW Coefficient of Variation 14.2 % (11.5-14.5); RDW Standard Deviation 45.8 fL (36.4-46.3); Red Blood Count 5.19 M/uL (4.7-6.1); White Blood Count 16.43 K/uL (4.8-10.8)
[2020-06-13 14:10] LABS: D Dimer 1070 ug/L FEU (0-500)
--- NOTE | 2020-06-13 14:17 | XRay Report ---
XR chest 1V portable HISTORY: Hypoxia. COMPARISON: None. FINDINGS: There are low lung volumes. Progressive perihilar interstitial/vascular thickening. The hea rt is mildly enlarged. No pneumothorax. Moderate gaseous distention of the bowel. IMPRESSION: 1. Progressive perihilar interstitial/vascular thickening suggestive of mild pulmonary edema. 2. Low lung volumes, unchanged. 3. Gaseous distention of the bowel which is partially visualized on this study. This will be better a ssessed on the same day abdomen and pelvis CT. ACT 112: Negative or not required by law. Electronically signed by: Tal Painting M.D. 06/13/2020 2:16 PM
--- NOTE | 2020-06-13 14:30 | CT Scan Report ---
CT OF THE ABDOMEN AND PELVIS WITHOUT CONTRAST CLINICAL HISTORY: Evaluate for perforation. COMPARISON STUDY: No previous studies for comparison. TECHNIQUE: Axial images of the abdomen and pelvis were obtained without IV contrast. Images were revi ewed in the axial, sagittal, and coronal planes. Automated exposure control was utilized for the thais dy. A dose lowering technique was utilized adhering to the principles of ALARA. FINDINGS: Opacities within the lower lungs favor atelectasis. Note is made of cardiomegaly. Evaluatio n of the abdomen and pelvis is suboptimal on this unenhanced exam. A few water attenuation hepatic le sions are suboptimally assessed on this unenhanced exam but favor cysts. There is no biliary or pancr eatic ductal dilatation. The spleen, adrenal glands and pancreas are unremarkable. There is no peripa ncreatic infiltration. There is mild to moderate bilateral renal cortical thinning. No hydronephrosis is present. There is a 5 mm left renal calculus. There are no ureteral calculi. There is no lymphade nopathy. Diffuse muscular atrophy is present. There is marked colonic dilatation due to to a large am ount of stool within the distal sigmoid colon and the rectum. Colon measures up to 11 cm in caliber. There is moderate small bowel dilatation. The small bowel is fluid-filled with multiple air-fluid lev els. The appendix is normal. No acute fracture or suspicious lesion is present. There is no ascites. No pneumatosis, free air or portal venous gas is present. IMPRESSION: 1. No free air. 2. Marked colonic and moderate small bowel dilatation due to to a large amount of stool within the di stal sigmoid colon and rectum which results in a functional colonic obstruction. 3. Left-sided nephrolithiasis. No ureteral calculi. 4. Ground glass opacities within the lower lungs consistent with atelectasis. ACT 112: Negative or not required by law. Electronically signed by: Octavio Castanon M.D. 06/13/2020 2:28 PM
--- NOTE | 2020-06-13 14:54 | History & Physical Report ---
Date of Service June 13, 2020 Assessment & Plan (1) Constipation: - Admit to med surg with tele - CT abd reviewed- showing marked colonic and moderate small bowel dilatation due to to a large amount of stool within the distal sigmoid colon and rectum which results in a functional colonic obstruction. - Start MiraLAX bowel prep, drink 0.5 L until starts to have liquid bowel movements, administer Dulcolax suppository x1, can use soapsuds enema if bowel prep does not work. -Patient will require bariatric bedside commode/bedpan/bed -Allow clear liquid diet at this time (2) Diastolic CHF, chronic: -Last echocardiogram was completed on 06/22/2018, showing EF of 65 to 70%, concentric LVH, grade 1 diastolic dysfunction -Holding p.o. Bumex -Giving NSS 125 mL/h x 1 day with elevated kidney function and possible needs to obtain CTA due to elevated D-dimer 1070. - Cr. 1.69, appears baseline is 1.4-1.5, consider CTA of the chest in am. (3) Elevated d-dimer: - D-Dimer 1070 - attempt CTA tomorrow if kidney function improved. - Baseline edema present in BLE, 1+ pitting, - check US BLE to r/o DVT, bilateral edema, specific injury to the R lateral lower leg s/p wheelchair injury on 06/08/20 (4) HTN (hypertension): -Hold amlodipine, BP 120/89, consider resuming pending improved BMP with a.m. labs (5) Dyslipidemia: -Continue statin therapy, had held this several weeks ago for a trial to see if this was causing muscle weakness/pain, but has restarted it at this point (6) COPD (chronic obstructive pulmonary disease): -History of such, patient wears BiPAP at night with 4L O2, -CXR reviewed-low lung volumes, progressive perihilar interstitial/vascular thickening suggestive of mild pulmonary edema, monitor very closely as we are giving fluids and holding Bumex -Patient is wearing 2 L (7) Obesity hypoventilation syndrome: - Hx of such (8) Obesity: - BMI of 37.6 (9) Hypothyroidism: - Cont levothyroxine 175 mcg daily (10) Gout: - Cont colchicine 0.6 mg daily (11) Sleep apnea: - Continue bipap as above (12) DVT prophylaxis: - teds, scds CODE: DNR/DNI Dispo: From home, likely to remain in the hospital x 1-2 days History of Present Illness Primary Care Provider: Perla Saxena MD This is a 79-year-old male with PMHx of chronic diastolic CHF, HTN, HLD, LVH, pulmonary artery hypertension COPD, obesity hypoventilation syndrome, hypothyroidism, BPH, gout vitamin B12 and D deficiency, obesity with BMI of 37.6 who presents to the hospital with acute onset of abdominal pain. Abd pain began 48 in morning with belching and gaseous distention and progressed, noticeable in the right lower quadrant. This morning he had some dry heaving, however did not vomit. He was able to keep down his morning medications. Patient has been able to drink water but has had a very poor appetite in the last week. He reports having bowel movements one last night and one this morning which are soft, and has started taking stool softeners approximately 1 week ago due to feeling constipated. He denies fevers or chills but did report sweats last evening. He called an ambulance this morning and was brought to the ER. His daughter is present at bedside and assists with the history. She reports that he has been using a wheelchair mostly and is able to pivot with a walker however has become weaker in the past few days. He also requires bariatric bed and bedside commode at home. Last Tuesday on [facility] the patient sustained injury to the right lateral leg from his wheelchair. Allergies Allergy/AdvReac Type Severity Reaction Status Date / Time No Known Allergies Allergy Verified 06/13/20 15:37 Home Medications Medication Instructions Recorded Confirmed Type amlodipine 5 mg tablet 5 mg PO QAM 11/20/18 06/13/20 History aspirin 81 mg tablet,delayed 81 mg PO QAM 11/20/18 06/13/20 History release simvastatin 20 mg tablet 20 mg PO HS tab 11/20/18 06/13/20 History bumetanide 1 mg tablet 1.5 mg PO BID tab 01/08/19 06/13/20 History cholecalciferol (vitamin D3) 25 1,000 units PO QAM 01/08/19 06/13/20 History mcg (1,000 unit) capsule colchicine 0.6 mg capsule 0.6 mg PO QAM 01/08/19 06/13/20 History CPAP Machine #1 ea 02/07/19 06/13/20 Rx Oxygen Home #1 ea 05/13/19 06/13/20 Rx calcium carbonate [Tums] 200 mg PO BID PRN 05/16/20 06/13/20 History bromfenac [Prolensa] 1 drp OPHTHALMIC (EYE) DAILY 06/13/20 06/13/20 History difluprednate [Durezol] See Rx Instructions .ROUTE .COMPLEX 06/13/20 06/13/20 History gatifloxacin See Rx Instructions .ROUTE .COMPLEX 06/13/20 06/13/20 History levothyroxine 175 mcg PO DAILYBB 06/13/20 06/13/20 History Past Med/Surg History Medical History (Updated 06/13/20 @ 16:40 by Yazan Finn) Dyslipidemia GERD (gastroesophageal reflux disease) HTN (hypertension) Hx of gout Hypothyroidism Neuropathy Obesity On home oxygen therapy 4 LPM qHS Restrictive lung disease Sleep apnea BiPAP + O2 at 4 LPM Venous insufficiency Surgical History History of cataract surgery RT. 06/03/20. [facility]. 2mg versed, 50mcg fentanyl. no issues reported. 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 Musculoskeletal: No joint pain, calf pain, swelling Neurologic: +generalized weakness, no numbness/tingling, + uses wheelchair primarily, pivots with walker. Psychiatric: No anxiety or depression Skin: No rash or itch. + Right lateral leg injury from 06/09/19 via wheelchair. Physical Exam Physical Exam: General: awake, alert, no apparent distress, + morbidly obese with BMI 37.6 Head: Normocephalic, atraumatic ENT: PERRL, EOMI, no pharyngeal exudate, mucous membranes moist Chest: + Diminished throughout, on 4 L via NC with sats 96%, no wheeze, rales or rhonchi Cardiac: Regular rate and rhythm, no murmur, no JVD, normal peripheral pulses, good capillary refill Abdominal: Hypoactive BS x 4 quadrants, +distended, soft, minimally tender to palpation, no rebound or guarding Extremities: + Peripheral edema 1 + pitting, mild erythema, + right lateral leg wound covered in nonstick dressing without surrounding erythema, no purulence, calfs nontender to palpation Psych: Normal mood and affect Neuro: AAO x 3, strength intact bilaterally and rated 5/5, no motor deficits, speech is clear, no peripheral sensory deficits Results & Data Results & Data ([facility]) Vital Signs (Past 12 Hours) Vital Signs Temp Pulse Resp BP Pulse Ox 06/13/20 13:06 37.0 C 101 H 21 130/80 87 L Diagnostic Findings Chest X-Ray 06/13/20 13:15 XR chest 1V portable HISTORY: Hypoxia. COMPARISON: None. FINDINGS: There are low lung volumes. Progressive perihilar interstitial/vascular thickening. The heart is mildly enlarged. No pneumothorax. Moderate gaseous distention of the bowel. IMPRESSION: 1. Progressive perihilar interstitial/vascular thickening suggestive of mild pulmonary edema. 2. Low lung volumes, unchanged. 3. Gaseous distention of the bowel which is partially visualized on this study. This will be better assessed on the same day abdomen and pelvis CT. ACT 112: Negative or not required by law. Electronically signed by: Tal Painting M.D. 06/13/2020 2:16 PM Abdomen/Pelvis CT 06/13/20 14:06 CT OF THE ABDOMEN AND PELVIS WITHOUT CONTRAST CLINICAL HISTORY: Evaluate for perforation. COMPARISON STUDY: No previous studies for comparison. TECHNIQUE: Axial images of the abdomen and pelvis were obtained without IV contrast. Images were reviewed in the axial, sagittal, and coronal planes. Automated exposure control was utilized for the study. A dose lowering technique was utilized adhering to the principles of ALARA. FINDINGS: Opacities within the lower lungs favor atelectasis. Note is made of cardiomegaly. Evaluation of the abdomen and pelvis is suboptimal on this unenhanced exam. A few water attenuation hepatic lesions are suboptimally assessed on this unenhanced exam but favor cysts. There is no biliary or pancreatic ductal dilatation. The spleen, adrenal glands and pancreas are unremarkable. There is no peripancreatic infiltration. There is mild to moderate bilateral renal cortical thinning. No hydronephrosis is present. There is a 5 mm left renal calculus. There are no ureteral calculi. There is no lymphadenopathy. Diffuse muscular atrophy is present. There is marked colonic dilatation due to to a large amount of stool within the distal sigmoid colon and the rectum. Colon measures up to 11 cm in caliber. There is moderate small bowel dilatation. The small bowel is fluid-filled with multiple air-fluid levels. The appendix is normal. No acute fracture or suspicious lesion is present. There is no ascites. No pneumatosis, free air or portal venous gas is present. IMPRESSION: 1. No free air. 2. Marked colonic and moderate small bowel dilatation due to to a large amount of stool within the distal sigmoid colon and rectum which results in a functional colonic obstruction. 3. Left-sided nephrolithiasis. No ureteral calculi. 4. Ground glass opacities within the lower lungs consistent with atelectasis. ACT 112: Negative or not required by law. Electronically signed by: Octavio Castanon M.D. 06/13/2020 2:28 PM ECG Additional Comments: 13-JUN-2020 13:31:33 [facility]-EDSTAT ROUTINE RETRIEVAL Suspect arm lead reversal, interpretation assumes no reversal Sinus rhythm with sinus arrhythmia with 1st degree A-V block Right bundle branch block Abnormal ECG When compared with ECG of 22-JUN-2018 08:19, Right bundle branch block is now Present 25mm/s 10mm/mV 150Hz 9.0.9 12SL 241 ELVIS: 15 Unconfirmed Vent. rate 98 BPM AL interval 272 ms QRS duration 160 ms QT/QTc 434/554 ms Code Status & VTE Plan Code Status DNR/DNI -discussed with the patient and his daughter at bedside. Supervising Physician Co-Signing Physician Notes Care coordinated with Lexis Espinal PA-C. Agree with above note. Patient seen and examined. Please refer to her notes for full details. Vital signs reviewed. Physical exam: General exam: Alert and oriented. Not in acute distress. CVS: S1 and S2 heard, regular rate and rhythm, no murmurs. RS: Clear to auscultation, no wheezing or crackles. ABD: Soft, bowel sounds sluggish, distended, Mild discomfort ETL APPLICATION DEVELOPER: Nonfocal. EXT: b/l lower extremity edema present, no erythema seen Labs: Reviewed. Assessment and plan: 79M with hx of diastolic chf, RAIN, obesity, copd, htn who lives with his and has care givers and daughter is nurse at [employer] presents with abdominal pain of few days and somewhat distended abdomen. Daughter in the room Says he had large bowel movements yesterday and today. Requiring 2lts oxygen in Er. But denies any sob or cough or fevers. Has chronic cough.Lower extremity edema is same as per daughter. Imaging studies showing constipation and distended colon and sbo possible functional obstruction.Doesnot want NG tube at this time. Constipation colonic dilatation and obstruction sbo npo, fluids, surgery and GI consult soap sudes enema follow kub in am. Diastolic CHF currently bumex held monitor for volume overload Rain bipap q hs Other diagnosis and plan of care as per Lexis Espinal PA-C. Addendum: later in the night patient became sob. marketing production manager night doc stopped fluids, gave iv lasix, nebs and started on abx and steroids for chf and copd ex and possible pneumonia. Close monitor Stanislav edmond MD.
[2020-06-13] MEDS: POTASSIUM CHLORIDE / WTR 10 MEQ/100 ML PLCT IV SCH ×4 (15:07→21:01)
[2020-06-13 16:01] LABS: Influenza A virus by PCR Negative (Neg); Influenza B virus by PCR Negative (Neg); RSV by PCR Negative (Neg); SARS CoV2 RNA(COVID-19) InHosp NEGATIVE (Negative)
[2020-06-13] MEDS ORDERED: POTASSIUM CHLORIDE 20 MEQ/15 ML UDC PO STA (16:37)
[2020-06-13] MEDS ORDERED: POTASSIUM CHLORIDE CRTAB 20 MEQ TABCR PO STA (17:12)
--- NOTE | 2020-06-13 17:44 | Ultrasound Report ---
BILATERAL LOWER EXTREMITY VENOUS DOPPLER CLINICAL HISTORY: Bilateral lower extremity swelling. Elevated d-dimer. COMPARISON STUDY: Bilateral lower extremity venous Doppler ultrasound June 03, 2019. TECHNIQUE: Sonography of the deep venous system of the bilateral lower extremities was performed. Co mpression and augmentation were evaluated. FINDINGS: This exam is optimized by suboptimal penetration and lower extremity edema. The bilateral c ommon femoral, superficial femoral and popliteal veins were compressible. Augmentation was normal. Fl ow was shown within the deep calf vessels although calf vessels were partially obscured. IMPRESSION: Technically difficult exam but no evidence of deep venous thrombus within the bilateral l ower extremities. ACT 112: Negative or not required by law. Electronically signed by: Octavio Castanon M.D. 06/13/2020 5:43 PM
[2020-06-13] MEDS ORDERED: bisacodyL 10 MG SUPP PR STA (18:20)
[2020-06-13] MEDS ORDERED: CALCIUM CARBONATE 500 MG CHEWABLE TAB PO PRN (18:20)
[2020-06-13] MEDS ORDERED: bisacodyL 5 MG TABEC PO ONE (18:20)
[2020-06-13] MEDS ORDERED: SODIUM CHLORIDE 0.9% 1000ML 1,000 ML IV SCH (18:20)
[2020-06-13] MEDS ORDERED: NON-FORMULARY MEDICATION (Oxygen Home Liters per Minute) SCH (18:20)
[2020-06-13] MEDS ORDERED: ACETAMINOPHEN 325 MG TAB PO PRN (18:20)
[2020-06-13] MEDS ORDERED: ONDANSETRON INJ 2 MG/ML 2 ML VIAL IV PRN (18:20)
[2020-06-13] MEDS ORDERED: NON-FORMULARY MEDICATION (Cpap Machine misc) SCH (18:20)
--- NOTE | 2020-06-13 19:52 | Surgery Consultation ---
Date of Consultation June 13, 2020 Assessment & Plan (1) Constipation: At this point I agree with the laxative given continue stool softeners but I like to give him some soapsuds enemas This was discussed with the nurses the patient is unable to sit up or stand up and due to his large size he will need some help in gauging the bedpans This was discussed with the patient and all questions were answered History of Present Illness Reason for Consultation: Functional bowel obstruction Attending Physician: Stanislav Caceres MD History of Present Illness This pleasant 79-year-old gentleman who is 6 foot 6 with a BMI of 35.4 is at approximately 24-hour history of belching some nausea came into the emergency room and was evaluated by CT scan which revealed significant amount of stool in the rectum and descending colon and a functional bowel obstruction with some small bowel distention The gentleman never had any abdominal surgery He has a peripheral neuropathy and in the last 5 years he has had physical therapy at home 3 times a week 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 and is limited as far as mobility even standing up is a chore and his legs will not hold him His past medical history is quite significant including obesity restrictive lung disease (never smoker) but 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 venous insufficiency sleep apnea diastolic congestive heart failure which is chronic He denies any changes in weight He states his last bowel movement was yesterday and he had one this morning he changed his oral intake by taking a lot of stool softeners lately Allergies Allergy/AdvReac Type Severity Reaction Status Date / Time No Known Allergies Allergy Verified 06/13/20 15:37 Home Medications Medication Instructions Recorded Confirmed Type amlodipine 5 mg tablet 5 mg PO QAM 11/20/18 06/13/20 History aspirin 81 mg tablet,delayed 81 mg PO QAM 11/20/18 06/13/20 History release simvastatin 20 mg tablet 20 mg PO HS tab 11/20/18 06/13/20 History bumetanide 1 mg tablet 1.5 mg PO BID tab 01/08/19 06/13/20 History cholecalciferol (vitamin D3) 25 1,000 units PO QAM 01/08/19 06/13/20 History mcg (1,000 unit) capsule colchicine 0.6 mg capsule 0.6 mg PO QAM 01/08/19 06/13/20 History CPAP Machine #1 ea 02/07/19 06/13/20 Rx Oxygen Home #1 ea 05/13/19 06/13/20 Rx calcium carbonate [Tums] 200 mg PO BID PRN 05/16/20 06/13/20 History bromfenac [Prolensa] 1 drp OPHTHALMIC (EYE) DAILY 06/13/20 06/13/20 History difluprednate [Durezol] See Rx Instructions .ROUTE .COMPLEX 06/13/20 06/13/20 History gatifloxacin See Rx Instructions .ROUTE .COMPLEX 06/13/20 06/13/20 History levothyroxine 175 mcg PO DAILYBB 06/13/20 06/13/20 History Patient History Medical History (Updated 06/13/20 @ 16:40 by Yazan Finn) Dyslipidemia GERD (gastroesophageal reflux disease) HTN (hypertension) Hx of gout Hypothyroidism Neuropathy Obesity On home oxygen therapy 4 LPM qHS Restrictive lung disease Sleep apnea BiPAP + O2 at 4 LPM Venous insufficiency Surgical History History of cataract surgery RT. 06/03/20. [facility]. 2mg versed, 50mcg fentanyl. no issues reported. 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: elderly caregiver current occupational status: retired Other Information That Helps Us Care for You: No Feels Safe at Home: Yes Safety Concerns: Feels Safe At This Time Assistive Devices: BiPap, Denture - Upper, Denture - Lower, Oxygen - at Night and Walker Review of Systems Review of Systems: All systems reviewed & are unremarkable except as noted in HPI & below Physical Exam Physical Exam: Patient is alert coherent pleasant no acute distress Sclerae nonicteric no cervical lymphadenopathy The abdomen is markedly distended with no localized tenderness possible guarding on the right lower quadrant Rectal exam has good sphincter tone possibly slight anal stenosis but not significant no masses as far as my finger was examined but significant amount of soft brown stool grossly no blood Results & Data ([facility]) Vital Signs (Past 12 Hours) Vital Signs Temp Pulse Pulse Resp BP BP Pulse Ox 06/13/20 18:29 36.6 C 84 20 130/84 92 06/13/20 16:50 99 H 27 H 06/13/20 16:40 102 H 23 06/13/20 16:31 101 H 25 H 131/112 H 06/13/20 16:30 104 H 19 06/13/20 16:20 101 H 34 H 93 06/13/20 16:10 101 H 28 H 93 06/13/20 16:01 101 H 27 H 122/82 93 06/13/20 16:00 101 H 20 06/13/20 15:50 103 H 25 H 06/13/20 15:40 103 H 24 93 06/13/20 15:31 101 H 29 H 95 06/13/20 15:30 103 H 29 H 136/93 95 06/13/20 15:20 98 H 29 H 97 06/13/20 15:10 102 H 27 H 96 06/13/20 15:01 98 H 25 H 95 06/13/20 15:00 96 H 32 H 120/89 95 06/13/20 14:50 97 H 29 H 95 06/13/20 14:40 100 H 24 95 06/13/20 14:31 98 H 28 H 95 06/13/20 14:30 99 H 25 H 130/85 95 06/13/20 14:20 100 H 17 94 06/13/20 14:19 102 H 32 H 95 06/13/20 14:00 97 H 43 H 126/83 93 06/13/20 13:50 98 H 31 H 92 06/13/20 13:40 96 H 24 93 06/13/20 13:31 97 H 30 H 93 06/13/20 13:30 97 H 37 H 130/87 93 06/13/20 13:20 96 H 27 H 93 06/13/20 13:10 93 H 28 H 93 06/13/20 13:07 97 H 22 94 06/13/20 13:06 37.0 C 101 H 21 130/80 87 L 04/09/21 13:00 97 H 27 H 128/90 94 Noted PG Care Time/CCT Total # of Minutes Spent Total Time Spent with Patient: Total time spent is greater than 50% in coordination of care (as documented) at patient's floor/unit and/or counseling patient: Coding Level of Care Code 48589 Inpt Consult Level 3 Diagnoses Constipation K59.00
[2020-06-13] MEDS: POLYETHYLENE (MIRALAX) 17 GM PACK PO SCH (19:55)
[2020-06-13] MEDS ORDERED: DIFLUPREDNATE 0.05% OP SCH (21:00)
[2020-06-13] MEDS: SIMVASTATIN 20 MG TAB PO SCH (21:02)
[2020-06-13] MEDS: HEPARIN SOD 5,000 UNIT/0.5 ML VIAL SQ SCH (21:04)
[2020-06-13] MEDS ORDERED: XOPENEX/ATROVENT 1.25mg/0.5MG NEB COMBO NEB STA (21:46)
[2020-06-13] MEDS ORDERED: IPRATROPIUM BROMIDE NEB SOLN 0.02% 2.5 ML VIAL INH STA (21:47)
[2020-06-13] MEDS ORDERED: LEVALBUTEROL 1.25MG/0.5ML NEB INH STA (21:47)
[2020-06-13] MEDS ORDERED: FUROSEMIDE 60 MG in SYRINGE 0 ML IV ONE (22:00)
[2020-06-13] MEDS ORDERED: ALBUMIN 25% 12.5 GM/50 ML VIAL IV ONE (22:00)
--- NOTE | 2020-06-13 22:03 | Communication Note ---
Date of Service: June 13, 2020 Notified by RN around 9:40 PM of patient shortness of breath, worsening hypoxemia, and wheezes. O2 sats 80s on 10 L as per RN. Patient with new cough symptoms not present prior to confinement. Dry heaving symptoms as per HPI. Coughing with meals/water intake at home as per patient. Patient denies chest pain. Chest x-ray as per my interpretation congestion versus infiltrates PPE: Obese, respiratory distress Rhonchi left greater than the right, expiratory wheezes AP Hypoxemic respiratory failure Multifactorial : Pulmonary congestion COPD exacerbation secondary to possible aspiration pneumonia/HCAP, possible sepsis BiPAP ABG Stop IV fluid Lasix albumin Cultures, check lactic acid, Zosyn Steroid course, nebs RTC for COPD exacerbation Swallow eval, aspiration precautions Transfer to [facility] telemetry if without improvement. Will relay to AM provider. ADDENDUM : 06/14/20 6 AM Lactic acid 3.9 SBP 90s PCU transfer for closer monitoring. Albumin Recheck lactic acid
[2020-06-13] MEDS ORDERED: methylPREDNISolone 40 MG in SYRINGE 0 ML IV ONE (22:15)
[2020-06-13] MEDS ORDERED: PIPERACILLIN/TAZOBACTAM 4.5 GM in DEXTROSE 5% 100 ML IV STA (22:28)
[2020-06-13] MEDS ORDERED: PIPERACILL/TAZOBAC CONSULT ACTIVE PRN (22:28)
[2020-06-13 22:33] LABS: Appearance Urine Cloudy (Clear); Bacteria Urine Automated Negative (Negative); Blood Urine Negative (Negative); Color Urine Dark Yellow; Epithelial Cell Urine Auto 20-30 /lpf (0-5); Glucose Urine UA Negative (Negative); Ketones Urine Trace (Negative); Leukocyte Esterase Urine 2+ (Negative); Nitrite Urine Negative (Negative); Protein Urine Trace (Negative); Specific Gravity Urine 1.018 (1.000-1.030); Urobilinogen Urine Negative (Negative)
[2020-06-13 22:38] LABS: Bilirubin Urine 1+ (Negative)
[2020-06-13 22:51] LABS: Base Excess ABG 4.7 mEq/L (-9-1.8); HCO3 ABG 34 mmol/L (19-24); Oxygen Saturation ABG 95.3 % (90-95); PCO2 ABG 72 mmHg (35-46); PO2 ABG 83 mmHg (80-95); pH ABG 7.29 (7.35-7.45)
[2020-06-13 23:07] LABS: Allen Test POS (Pos)
[2020-06-13 23:40] LABS: BUN Creatinine Ratio 17.9 (10-20); Calcium 8.9 mg/dl (8.5-10.1); Creatinine Clr Calc Pharmacy 42.9 ml/min; Est GFR (African American) 32.2; Est GFR (Non-African American) 27.8; Magnesium 2.2 mg/dl (1.8-2.4); Potassium 3.4 mmol/L (3.5-5.1)
[2020-06-13] MEDS: ALBUMIN 25% 12.5 GM/50 ML VIAL IV SCH (23:45)
[2020-06-14] MEDS: POTASSIUM CHLORIDE / WTR 10 MEQ/100 ML PLCT IV SCH ×8 (00:09→14:15)
[2020-06-14] MEDS: LEVALBUTEROL 1.25MG/0.5ML NEB INH SCH ×4 (00:16→20:44)
[2020-06-14] MEDS: IPRATROPIUM BROMIDE NEB SOLN 0.02% 2.5 ML VIAL INH SCH ×4 (00:16→20:44)
[2020-06-14] MEDS ORDERED: PROMETHAZINE HCL 12.5 MG in SODIUM CHLORIDE 0.9% 50 ML IV PRN (00:17)
[2020-06-14] MEDS ORDERED: PROMETHAZINE HCL 12.5 MG in SODIUM CHLORIDE 0.9% 50 ML IV STA (00:17)
[2020-06-14] MEDS: ALBUMIN 25% 12.5 GM/50 ML VIAL IV SCH ×5 (01:18→22:49)
[2020-06-14 02:24] LABS: Base Excess ABG 4.6 mEq/L (-9-1.8); HCO3 ABG 33 mmol/L (19-24); Oxygen Saturation ABG 94.2 % (90-95); PCO2 ABG 65 mmHg (35-46); PO2 ABG 74 mmHg (80-95); pH ABG 7.32 (7.35-7.45)
[2020-06-14 02:25] LABS: Allen Test POS (Pos)
[2020-06-14] MEDS: POLYETHYLENE (MIRALAX) 17 GM PACK PO SCH (05:02)
[2020-06-14] MEDS ORDERED: bisacodyL 10 MG SUPP PR STA (05:07)
[2020-06-14] MEDS: PIPERACILLIN/TAZOBACTAM 4.5 GM in DEXTROSE 5% 100 ML IV SCH ×3 (05:38→22:02)
[2020-06-14 05:51] LABS: Albumin Level 3.5 gm/dl (3.4-5.0); BUN Creatinine Ratio 18.3 (10-20); Calcium 8.9 mg/dl (8.5-10.1); Creatinine Clr Calc Pharmacy 37.4 ml/min; Est GFR (African American) 27.3; Est GFR (Non-African American) 23.5; Potassium 3.7 mmol/L (3.5-5.1)
[2020-06-14 05:56] LABS: Albumin Globulin Ratio 1.1 (0.9-2); Bilirubin,Total 1.6 mg/dl (0.2-1); Globulin 3.2 gm/dl (2.5-4.0); Total Protein 6.7 gm/dl (6.4-8.2)
[2020-06-14 06:25] LABS: Hematocrit (blood only) 40.3 % (42-52); Hemoglobin 14.3 g/dL (14.0-18.0); Mean Corpuscular Hemoglobin 31.4 pg (25-34); Mean Corpuscular Hgb Conc 35.5 g/dL (32-36); Mean Corpuscular Volume 88.6 fL (80-100); Mean Platelet Volume 9.7 fL (7.4-10.4); Platelet Count 269 K/uL (130-400); RDW Coefficient of Variation 14.7 % (11.5-14.5); RDW Standard Deviation 47.6 fL (36.4-46.3); Red Blood Count 4.55 M/uL (4.7-6.1); White Blood Count 1.77 K/uL (4.8-10.8)
[2020-06-14] MEDS ORDERED: XOPENEX/ATROVENT 1.25mg/0.5MG NEB COMBO NEB SCH (07:00)
--- NOTE | 2020-06-14 07:31 | Electrocardiogram Report ---
Test Reason : Blood Pressure : / mmHG Vent. Rate : 098 BPM Atrial Rate : 098 BPM P-R Int : 272 ms QRS Dur : 160 ms QT Int : 434 ms P-R-T Axes : 103 255 002 degrees QTc Int : 554 ms Sinus rhythm with sinus arrhythmia with 1st degree A-V block Right bundle branch block Abnormal ECG When compared with ECG of 22-JUN-2018 08:19, Right bundle branch block is now Present Confirmed by Arsh Monk ([id number]) on 06/14/2020 7:30:50 AM Referred By: Confirmed By:Arsh Monk
--- NOTE | 2020-06-14 07:45 | Surgery Progress Note ---
Date of Service June 14, 2020 Assessment & Plan (1) Constipation: This point a septic picture most likely due to pulmonary issues whether secondary to aspiration or primary pulmonary process The abdomen is softer than it was last night although I cannot see any recording whether or not the patient had any bowel movements with the soapsuds enemas another laxatives At this point we will get a KUB of the abdomen to follow-up on the colonic distention At the present time he is being transferred to telemetry Admission and Anticipated Discharge Date Admission Date: June 13, 2020 Subjective Denies any abdominal pain at this time Physical Exam Physical Exam: Patient at this time is on BiPAP responds to verbal stimuli not agitated The abdomen remains distended but is less tender than yesterday still tympanic Results & Data ([facility]) Vital Signs (Past 12 Hours) Vital Signs Temp Pulse Pulse Resp BP BP Pulse Ox 06/14/20 06:38 36.9 C 95 H 24 93/64 L 92 06/14/20 02:36 90 21 93 06/14/20 02:23 87 22 114/72 96 06/14/20 01:11 37.0 C 90 22 112/70 92 06/14/20 00:45 36.9 C 90 22 112/76 95 06/14/20 00:20 70 25 H 91 06/14/20 00:16 86 27 H 93 06/13/20 23:43 36.6 C 89 24 116/76 94 06/13/20 23:28 36.5 C 84 24 129/78 97 06/13/20 22:31 36.6 C 84 22 119/76 93 06/13/20 22:16 77 28 H 93 06/13/20 22:15 77 28 H 93 06/13/20 21:53 85 L 06/13/20 21:37 86 L 06/13/20 21:35 82 L Noted PG Care Time/CCT Total # of Minutes Spent Total Time Spent with Patient: Total time spent is greater than 50% in coordination of care (as documented) at patient's floor/unit and/or counseling patient: Coding Level of Care Code 54599 Subseq Hosp Care Lvl 3 Diagnoses Constipation K59.00
[2020-06-14] MEDS: LEVOTHYROXINE SODIUM 175 MCG TABLET PO SCH (08:03)
[2020-06-14] MEDS ORDERED: BROMFENAC 0.07% OP SCH (09:00)
[2020-06-14] MEDS ORDERED: COLCHICINE 0.6 MG TAB PO SCH (09:00)
--- NOTE | 2020-06-14 09:14 | XRay Report ---
KUB CLINICAL HISTORY: Colonic obstruction. COMPARISON STUDY: CT of the abdomen and pelvis June 23, 2020 FINDINGS: Exam is compromised by motion artifact. Large amount stool within the rectum is noted. Smal l and large bowel dilatation persists. Small bowel dilatation has increased since prior examination. There is moderate colonic dilatation. IMPRESSION: Persistent marked large and small bowel dilatation. Increase in small bowel dilatation s mali prior examination. The findings suggest a colonic obstruction, possibly on the basis of a large amount stool within the rectum. ACT 112: Negative or not required by law. Electronically signed by: Octavio Castanon M.D. 06/14/2020 9:13 AM
--- NOTE | 2020-06-14 09:20 | XRay Report ---
KUB HISTORY: cross table lateral for free air COMPARISON: KUB 06/14/2020. FINDINGS: No change in the distended and fluid-filled loops of large and small bowel. Large amount of well-formed stool again noted within the distal colon/rectum. No renal calculi. No ureteral calculi . No pneumoperitoneum or pneumatosis. IMPRESSION: 1. No pneumoperitoneum. 2. No change in the distended and stool-filled large and small bowel. ACT 112: Negative or not required by law. Electronically signed by: Tal Painting M.D. 06/14/2020 9:19 AM
--- NOTE | 2020-06-14 09:25 | XRay Report ---
XR chest 1V portable HISTORY: Shortness of breath. COMPARISON: Chest 06/13/2020. FINDINGS: There are low lung volumes. No pneumothorax. There is perihilar interstitial/vascular thick ening, unchanged. The heart remains mildly enlarged. Distended gas-filled loops of large and small mamadou wel are again noted. No pleural effusions. No new focal lung consolidations. No pneumoperitoneum. Bib asilar linear densities persist and favor subsegmental atelectasis. IMPRESSION: 1. Mild interstitial pulmonary edema, unchanged. 2. Low lung volumes with bibasilar linear densities consistent with subsegmental atelectasis. 3. Stable cardiomegaly. 4. Persisting gaseous distention of the large and small bowel. ACT 112: Negative or not required by law. Electronically signed by: Tal Painting M.D. 06/14/2020 9:24 AM
--- NOTE | 2020-06-14 10:34 | Gastrointestinal Consultation ---
Date of Consultation June 14, 2020 Supervising Physician Co-Signing Physician Notes 79 yo male with a history of neuropathy, siginficant copd, admitted with nausea/vomiting, belching, imaging c/w stool burden likely significantly in descending/sigmoid colon leading to essentially a mild functional bowel obstruction with proximal colon dilation. He appears to be quite sedentary overall per chart review. He likely will improve with an agressive bowel regimen - would consider smog enemas if tolerated or soap kurtis enemas, would do a full bowel prep - if not consider go lytely as an alternative. Essentially he needs a bowel regimen to move his bowels and likely things will improve thereafter. History of Present Illness Reason for Consultation: Abnl imaging Requesting Physician: Medicine Attending Physician: Luz Maria Blackburn MD History of Present Illness 79 yo male with a history of significant copd - currently on bipap in telemetry, admitted through the er yesterday for reports of nausea/vomiting/belching. History of reported constipation but was having bm's prior to admission. In er noted to be hemodynamically stable, slight bump in wbc count, chronic kidney issues, given iv abx, ct scan done showing stool in descending sigmoid colon with proximal colonic dilation. Seen by other services, on the floor initially last night, given fluid, reportedly soap kurtis enemas and some miralax. Some respiratory issues leading to transfer to telemetry. He is on bipap/cpap machine, voices no complaints to me. He stated he is having bowel movements and feels a bit better than coming in. His belly is being inflated also with bipap/cpap machine. His belly is soft but somewhat distended, not tense. Allergies Allergy/AdvReac Type Severity Reaction Status Date / Time No Known Allergies Allergy Verified 06/13/20 15:37 Home Medications Medication Instructions Recorded Confirmed Type amlodipine 5 mg tablet 5 mg PO QAM 11/20/18 06/13/20 History aspirin 81 mg tablet,delayed 81 mg PO QAM 11/20/18 06/13/20 History release simvastatin 20 mg tablet 20 mg PO HS tab 11/20/18 06/13/20 History bumetanide 1 mg tablet 1.5 mg PO BID tab 01/08/19 06/13/20 History cholecalciferol (vitamin D3) 25 1,000 units PO QAM 01/08/19 06/13/20 History mcg (1,000 unit) capsule colchicine 0.6 mg capsule 0.6 mg PO QAM 01/08/19 06/13/20 History CPAP Machine #1 ea 02/07/19 06/13/20 Rx Oxygen Home #1 ea 05/13/19 06/13/20 Rx calcium carbonate [Tums] 200 mg PO BID PRN 05/16/20 06/13/20 History bromfenac [Prolensa] 1 drp OPHTHALMIC (EYE) DAILY 06/13/20 06/13/20 History difluprednate [Durezol] See Rx Instructions .ROUTE .COMPLEX 06/13/20 06/13/20 History gatifloxacin See Rx Instructions .ROUTE .COMPLEX 06/13/20 06/13/20 History levothyroxine 175 mcg PO DAILYBB 06/13/20 06/13/20 History Patient History Medical History (Updated 06/13/20 @ 16:40 by Yazan Finn) Dyslipidemia GERD (gastroesophageal reflux disease) HTN (hypertension) Hx of gout Hypothyroidism Neuropathy Obesity On home oxygen therapy 4 LPM qHS Restrictive lung disease Sleep apnea BiPAP + O2 at 4 LPM Venous insufficiency Surgical History History of cataract surgery RT. 06/03/20. [facility]. 2mg versed, 50mcg fentanyl. no issues reported. 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 Other Information That Helps Us Care for You: No Feels Safe at Home: Yes Safety Concerns: Feels Safe At This Time Assistive Devices: None Review of Systems Review of Systems: All systems reviewed & are unremarkable except as noted in HPI & below Physical Exam Physical Exam: Elderly male with bipap/cpap on in nad Eyes: PERRL, conjunctivae normal, anicteric sclerae Gastrointestinal (Abdomen): Soft but slightly distended but he is also on bipap/cpap machine Skin: no rashes, warm and dry Neurologic: PERRL, EOMI, accommodation nl, no face palsy, no dysarthria Results & Data ([facility]) Vital Signs (Past 12 Hours) Vital Signs Temp Pulse Pulse Resp BP BP Pulse Ox 06/14/20 09:34 76 29 H 93 06/14/20 07:55 90 90 27 H 94 06/14/20 07:49 36.3 C L 91 H 28 H 113/78 93 06/14/20 06:38 36.9 C 95 H 24 93/64 L 92 06/14/20 02:36 90 21 93 06/14/20 02:23 87 22 114/72 96 06/14/20 01:11 37.0 C 90 22 112/70 92 06/14/20 00:45 36.9 C 90 22 112/76 95 06/14/20 00:20 70 25 H 91 06/14/20 00:16 86 27 H 93 06/13/20 23:43 36.6 C 89 24 116/76 94 06/13/20 23:28 36.5 C 84 24 129/78 97 06/13/20 22:31 36.6 C 84 22 119/76 93 Improvement in wbc count Cr stable Imaging reviewed
[2020-06-14] MEDS: predniSONE 20 MG TAB PO SCH (11:20)
[2020-06-14] MEDS: ASPIRIN 81 MG ECTAB PO SCH (11:20)
[2020-06-14] MEDS: amLODIPine BESYLATE 5 MG TAB PO SCH (11:20)
[2020-06-14] MEDS: PROLENSA OP SCH ×2 (11:21→20:24)
[2020-06-14] MEDS: DUREZOL OP SCH ×2 (11:21→20:24)
[2020-06-14] MEDS: CHOLECALCIFEROL 1,000 UNITS 25 MCG TAB PO SCH (11:22)
[2020-06-14] MEDS: HEPARIN SOD 5,000 UNIT/0.5 ML VIAL SQ SCH ×2 (11:22→20:23)
--- NOTE | 2020-06-14 15:31 | Hospitalist Progress Note ---
Date of Service June 14, 2020 Assessment & Plan (1) Constipation: Present on admission with abdominal discomfort and distended CT abd/pelvis showed marked colonic and moderate small bowel dilatation due to to a large amount of stool within the distal sigmoid colon and rectum which results in a functional colonic obstruction. Repeat KUB today showed no change in the distended and stool-filled large and small bowel. Gastro on board recommended smog enemas or soap kurtis enema bowel prep, then if no improvement to consider golytely as an alternative. Surgery on board no indication for any surgical intervention Continue clear liquid diet Continue monitor closely Will repeat KUB in am (2) High serum lactate: Possible related to respiratory hypoxia vs sepsis Pt has been afebrile CT abd/pelvis showed no free air. Marked colonic and moderate small bowel dilatation due to to a large amount of stool within the distal sigmoid colon and rectum which results in a functional colonic obstruction. IVF was discontinued due to mild pulmonary edema and worsening hypoxia Continue IV Zosyn for now Blood cx pending Will trend lactic acid (3) Diastolic CHF, chronic: Last echocardiogram was completed on 06/22/2018, showing EF of 65 to 70%, concentric LVH, grade 1 diastolic dysfunction CXR showed Mild interstitial pulmonary edema, unchanged. IVF was discontinued due to worsening SOB Continue to hold Bumex (4) Elevated d-dimer: D-Dimer 1070 PT had elevated d-dimer in the past Doppler of LE extremities showed no DVT unable to get a CTA chest to r/o PE due to elevate creatinine Will consider to get a V/Q scan, doubt that will help since pt has hx COPD with interstitial changes (5) HTN (hypertension): BP stable Continue to hold amlodipine (6) Dyslipidemia: Continue statin therapy, had held this several weeks ago for a trial to see if this was causing muscle weakness/pain, but has restarted it at this point (7) COPD (chronic obstructive pulmonary disease): Patient wears BiPAP at night with 4L O2, Continue BIpap for now (8) Obesity hypoventilation syndrome: (9) Chronic respiratory failure with hypercapnia: (10) Hypoxia: CXR showed progressive perihilar interstitial/vascular thickening suggestive of mild pulmonary edema. ABG showed pH 7.32, PCO2 65, P02 74 HCO3 33 Patient wears BiPAP at night with 4L O2 at baseline Worsening hypoxia Unable to get a CTA chest to r/o PE Continue BIPAP for now Will repeat ABG Consider to get a CT chest without contrast if no improvement (11) Obesity: -BMI of 37.6 (12) Hypothyroidism: Cont levothyroxine 175 mcg daily (13) Gout: -Cont colchicine 0.6 mg daily (14) Sleep apnea: Continue bipap as above (15) DVT prophylaxis: scds/heparin subq CODE: DNR/DNI Admission and Anticipated Discharge Date Admission Date: June 13, 2020 Subjective Pt was seen and examined for follow of abdominal distention Lying in bed with mild respiratory distress Pt said that he had 2 BM so far and felt a little better He said that his breathing stable He said that his abdomen always feels distended as baseline Denies any abdominal pain currently Denies any chest pain, palpitation, dizziness and fever Review of Systems Review of Systems: All systems reviewed & are unremarkable except as noted in Subjective Physical Exam Physical Exam: General- No acute distress, +BIPAP on Head- atraumatic Eyes- PERRL, EOMI, ENT- oropharynx clear Neck- supple, no JVD Lungs- decrease BS Heart- regular rhythm; no murmur Abdomen- +distended, nontender Extremities- no calf tenderness, +edema Neuro- alert, oriented x 3; PERRL, EOMI; no facial palsy; no dysarthria Skin- warm & dry Results & Data Results & Data ([facility]) Vital Signs (Past 12 Hours) Vital Signs Temp Pulse Pulse Resp BP BP Pulse Ox 06/14/20 12:44 89 25 H 95 06/14/20 12:00 36.8 C 89 22 101/64 94 06/14/20 11:05 89 29 H 94 06/14/20 10:04 06/14/20 09:34 76 29 H 93 06/14/20 09:30 36.8 C 76 90 20 95/60 L 95 06/14/20 07:55 90 90 27 H 94 06/14/20 07:49 36.3 C L 91 H 28 H 113/78 93 06/14/20 06:38 36.9 C 95 H 24 93/64 L 92 Pulse Ox 06/14/20 12:44 06/14/20 12:00 06/14/20 11:05 06/14/20 10:04 95 06/14/20 09:34 06/14/20 09:30 95 04/10/21 07:55 06/14/20 07:49 06/14/20 06:38
--- NOTE | 2020-06-14 19:42 | Surgery Progress Note ---
Date of Service June 14, 2020 Assessment & Plan (1) Constipation: Functional obstruction from stool retention appears to be resolving patient has had multiple bowel movements his abdomen is much softer can probably restart diet when patient is much more awake and coherent Admission and Anticipated Discharge Date Admission Date: June 13, 2020 Subjective Feels much better this morning has multiple bowel movements no abdominal discomfort Physical Exam Physical Exam: Much more alert and coherent in this morning The abdomen is much softer has some guarding in the right flank right lower quadrant Bladder scan x2 has approximately 150 cc or possibly urine in the bladder Results & Data ([facility]) Vital Signs (Past 12 Hours) Vital Signs Temp Pulse Pulse Resp BP BP Pulse Ox 06/14/20 16:00 06/14/20 15:32 92 H 28 H 96 06/14/20 12:44 89 25 H 95 06/14/20 12:00 36.8 C 89 22 101/64 94 06/14/20 11:05 89 29 H 94 06/14/20 10:04 06/14/20 09:34 76 29 H 93 06/14/20 09:30 36.8 C 76 90 20 95/60 L 95 06/14/20 07:55 90 90 27 H 94 06/14/20 07:49 36.3 C L 91 H 28 H 113/78 93 Pulse Ox 06/14/20 16:00 95 06/14/20 15:32 06/14/20 12:44 06/14/20 12:00 06/14/20 11:05 06/14/20 10:04 95 06/14/20 09:34 06/14/20 09:30 95 06/14/20 07:55 06/14/20 07:49 no repeat labs since this morning PG Care Time/CCT Total # of Minutes Spent Total Time Spent with Patient: Total time spent is greater than 50% in coordination of care (as documented) at patient's floor/unit and/or counseling patient: Coding Level of Care Code 68899 Subseq Hosp Care Lvl 3 Diagnoses Constipation K59.00
[2020-06-14] MEDS: SIMVASTATIN 20 MG TAB PO SCH (20:23)
[2020-06-14 20:27] LABS: Hematocrit (blood only) 41.2 % (42-52); Hemoglobin 14.2 g/dL (14.0-18.0); Mean Corpuscular Hemoglobin 30.7 pg (25-34); Mean Corpuscular Hgb Conc 34.5 g/dL (32-36); Mean Corpuscular Volume 89.2 fL (80-100); Mean Platelet Volume 9.9 fL (7.4-10.4); Platelet Count 216 K/uL (130-400); RDW Coefficient of Variation 14.8 % (11.5-14.5); RDW Standard Deviation 48.2 fL (36.4-46.3); Red Blood Count 4.62 M/uL (4.7-6.1); White Blood Count 3.58 K/uL (4.8-10.8)
[2020-06-14 20:45] LABS: BUN Creatinine Ratio 23.3 (10-20); Calcium 8.8 mg/dl (8.5-10.1); Est GFR (Non-African American) 19.8; Potassium 4.1 mmol/L (3.5-5.1)
[2020-06-14 21:19] LABS: ALC (manual) 0.62 K/uL (1.2-3.4); ANC (manual) 2.61 K/uL (1.4-6.5); Lymphocytes # (manual) 0.62 K/uL (1.2-3.4); Lymphocytes % (manual) 17.4 %; Metamyelocytes # (manual) 0.13 K/uL (0-0); Metamyelocytes % (manual) 3.5 %; Monocytes # (manual) 0.22 K/uL (0.11-0.59); Monocytes % (manual) 6.1 %; Neutrophils # (manual) 2.61 K/uL (1.4-6.5)
[2020-06-14 22:33] LABS: Cdiff Antigen Negative; Cdiff Toxin A+B Negative Cdiff Toxin (Negative)
[2020-06-15] MEDS: LEVALBUTEROL 1.25MG/0.5ML NEB INH SCH ×4 (00:40→19:21)
[2020-06-15] MEDS: IPRATROPIUM BROMIDE NEB SOLN 0.02% 2.5 ML VIAL INH SCH ×4 (00:40→19:21)
[2020-06-15] MEDS: ALBUMIN 25% 12.5 GM/50 ML VIAL IV SCH ×4 (02:53→18:07)
[2020-06-15 05:44] LABS: Hematocrit (blood only) 38.8 % (42-52); Hemoglobin 13.4 g/dL (14.0-18.0); Mean Corpuscular Hemoglobin 30.7 pg (25-34); Mean Corpuscular Hgb Conc 34.5 g/dL (32-36); Mean Platelet Volume 10.2 fL (7.4-10.4); Platelet Count 200 K/uL (130-400); RDW Coefficient of Variation 14.6 % (11.5-14.5); Red Blood Count 4.36 M/uL (4.7-6.1); White Blood Count 4.33 K/uL (4.8-10.8)
[2020-06-15] MEDS ORDERED: ALBUMIN 25% 12.5 GM/50 ML VIAL IV SCH (06:00)
[2020-06-15 06:02] LABS: Albumin Level 3.5 gm/dl (3.4-5.0); BUN Creatinine Ratio 25.7 (10-20); Calcium 8.2 mg/dl (8.5-10.1); Est GFR (African American) 23.8; Est GFR (Non-African American) 20.5; Potassium 3.6 mmol/L (3.5-5.1)
[2020-06-15 06:04] LABS: Albumin Globulin Ratio 1.1 (0.9-2); Bilirubin,Total 1.7 mg/dl (0.2-1); Globulin 3.2 gm/dl (2.5-4.0); Total Protein 6.7 gm/dl (6.4-8.2)
[2020-06-15] MEDS: PIPERACILLIN/TAZOBACTAM 4.5 GM in DEXTROSE 5% 100 ML IV SCH ×3 (06:07→22:30)
[2020-06-15] MEDS: LEVOTHYROXINE SODIUM 175 MCG TABLET PO SCH (06:07)
--- NOTE | 2020-06-15 06:22 | Surgery Progress Note ---
Date of Service June 15, 2020 Assessment & Plan (1) Constipation: Patient has had numerous bowel movements. He does not appear to have an acute abdomen at this time. It is noted the patient's lactate is elevated but it has come down since time of admission. We will continue to follow closely while the patient is hospitalized. Admission and Anticipated Discharge Date Admission Date: June 13, 2020 Supervising Physician Co-Signing Physician Notes As per JOSE ANTONIO Ramachandran Patient has had multiple liquid bowel movements the abdomen grossly much less distended patient O2 requirements decreasing labs noted white count elevated from yesterday creatinine stabilizing urine output slowly increasing Would hold off oral intake until the patient's mental status is improved Subjective Patient currently resting in bed. He denies any nausea or vomiting. He notes he has had multiple bowel movements over the past 24 hours. He does admit to small amount of pain in his abdomen with palpation but notes that it has improved markedly since admission to the hospital. Patient's case was discussed with bedside nurse who notes that patient is having multiple liquid bowel movements. He is not having any emesis. He is not having any fevers, shakes or chills. No additional concerns or events were voiced by the RN at this time. Physical Exam Gastrointestinal (Abdomen): Bowel sounds are hypoactive. Abdomen is mildly distended. There is no rebound tenderness or guarding. Palpation did not appear to cause a significant amount of pain. Results & Data ([facility]) Vital Signs (Past 12 Hours) Vital Signs Temp Pulse Pulse Resp BP BP Pulse Ox 06/15/20 04:17 86 21 95 06/15/20 03:54 36.7 C 86 16 106/64 95 06/15/20 03:40 73 20 92 06/15/20 02:16 36.8 C 86 16 111/69 94 06/15/20 00:42 85 22 93 06/15/20 00:40 84 22 93 06/15/20 00:07 92 H 06/14/20 20:49 91 H 18 93 06/14/20 20:45 82 21 94 06/14/20 20:00 36.8 C 89 89 16 115/62 95 PG Care Time/CCT Total # of Minutes Spent Total Time Spent with Patient: Total time spent is greater than 50% in coordination of care (as documented) at patient's floor/unit and/or counseling patient: Coding Level of Care Code 65292 Subseq Hosp Care Lvl 2 Diagnoses Constipation K59.00
[2020-06-15] MEDS: ASPIRIN 81 MG ECTAB PO SCH (08:05)
[2020-06-15] MEDS: CHOLECALCIFEROL 1,000 UNITS 25 MCG TAB PO SCH (08:05)
[2020-06-15] MEDS: predniSONE 20 MG TAB PO SCH (08:05)
[2020-06-15] MEDS: DUREZOL OP SCH ×2 (08:06→20:31)
[2020-06-15] MEDS: HEPARIN SOD 5,000 UNIT/0.5 ML VIAL SQ SCH ×2 (08:07→20:31)
[2020-06-15] MEDS: PROLENSA OP SCH ×2 (08:07→20:31)
--- NOTE | 2020-06-15 10:33 | Nephrology Consultation ---
Date of Consultation June 15, 2020 Assessment & Plan (1) Acute kidney failure: Last creatinine in June 2018 was 1.12 was admitted with a serum creatinine of 1.6, which has been gradually declining, uop (not well recorded before), is 800 today. Chest x-ray consistent with pulmonary congestion. He also has grade 1 diastolic heart failure has been on 1.5 twice daily of Bumex. He has chronic respiratory acidosis with bicarb from 33(37 when his creatinine was 1.12) Likely secondary to fluid overload/ Start him on IV Lasix 60 mg twice daily. He is diastolic heart failure and would be sensitive to small changes in fluid status. He has ongoing diarrhea and his fluid management becomes even more tricky as his blood pressure has been on the lower side. His albumin is within normal range and would stop this. Daily BMP INput and output Charting, weights LIZZ work up Renal uss repeat U/A He will nephrology f/u on discharge. (2) Abdominal pain: -Functional Having bowel movements and feels better -Going to increase his urinary output as well (3) Chronic respiratory failure with hypercapnia: Chronic respiratory acidosis, secondary to RAIN heart failure. History of Present Illness Reason for Consultation: Acute kidney injury Attending Physician: Luz Maria Blackburn MD History of Present Illness 79-year-old, with past medical history significant for COPD, RAIN, hypertension, diastolic heart failure, hypothyroidism, and obesity, presented with acute abdominal pain. CT scan without contrast was significant for functional colonic obstruction due to feces. He was hemodynamically stable, responded well to enema and is now having good bowel movements .Denies any kidney problems in the past not seen a local telephone operator anytime before. He was on slow IV fluid at the time of admission which was stopped after the x-ray reported mild pulmonary congestion. Urine output has been reasonable after bowel movements ,around 800 mils per day, last creatinine as per records in June 2018 was 1.12. His admitting serum creatinine was 1.69, has gradually risen to 2.80 with the last 3 days. He has chronic respiratory acidosis, UA is positive for 20-30 epithelial cells with a pH of 1080 cast 1-5, pressure has been soft in the range of early 100's.He has been on home dose of 1.5 mg Bumex. Looks comfortable at rest. Allergies Allergy/AdvReac Type Severity Reaction Status Date / Time No Known Allergies Allergy Verified 06/13/20 15:37 Home Medications Medication Instructions Recorded Confirmed Type amlodipine 5 mg tablet 5 mg PO QAM 11/20/18 06/13/20 History aspirin 81 mg tablet,delayed 81 mg PO QAM 11/20/18 06/13/20 History release simvastatin 20 mg tablet 20 mg PO HS tab 11/20/18 06/13/20 History bumetanide 1 mg tablet 1.5 mg PO BID tab 01/08/19 06/13/20 History cholecalciferol (vitamin D3) 25 1,000 units PO QAM 01/08/19 06/13/20 History mcg (1,000 unit) capsule colchicine 0.6 mg capsule 0.6 mg PO QAM 01/08/19 06/13/20 History CPAP Machine #1 ea 02/07/19 06/13/20 Rx Oxygen Home #1 ea 05/13/19 06/13/20 Rx calcium carbonate [Tums] 200 mg PO BID PRN 05/16/20 06/13/20 History bromfenac [Prolensa] 1 drp OPHTHALMIC (EYE) DAILY 06/13/20 06/13/20 History difluprednate [Durezol] See Rx Instructions .ROUTE .COMPLEX 06/13/20 06/13/20 History gatifloxacin See Rx Instructions .ROUTE .COMPLEX 06/13/20 06/13/20 History levothyroxine 175 mcg PO DAILYBB 06/13/20 06/13/20 History Patient History Medical History (Updated 06/15/20 @ 10:43 by Dorinda Horner MD) Dyslipidemia GERD (gastroesophageal reflux disease) HTN (hypertension) Hx of gout Hypothyroidism Neuropathy Obesity On home oxygen therapy 4 LPM qHS Restrictive lung disease Sleep apnea BiPAP + O2 at 4 LPM Venous insufficiency Surgical History History of cataract surgery RT. 06/03/20. [facility]. 2mg versed, 50mcg fentanyl. no issues reported. 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 Other Information That Helps Us Care for You: No Feels Safe at Home: Yes Safety Concerns: Feels Safe At This Time Assistive Devices: BiPap Review of Systems Review of Systems: All systems reviewed & are unremarkable except as noted in HPI & below edema 1+ Physical Exam Physical Exam: General: awake, alert, no apparent distress, + morbidly obese with BMI 37.6 Head: Normocephalic, atraumatic ENT: PERRL, EOMI, no pharyngeal exudate, mucous membranes dry Chest: + Diminished throughout, on 4 L via NC with sats 96%, no wheeze, rales or rhonchi Cardiac: Regular rate and rhythm, no murmur, no JVD, normal peripheral pulses Abdominal: Hypoactive BS x 4 quadrants, +distended, soft, minimally tender to palpation, no rebound or guarding Extremities:+1 edema. Psych: Normal mood and affect Neuro: AAO x 3, strength intact bilaterally and rated 5/5, no motor deficits, speech is clear, no periphe Results & Data ([facility]) Vital Signs (Past 12 Hours) Vital Signs Temp Pulse Pulse Resp BP Pulse Ox 06/15/20 09:54 92 06/15/20 08:00 86 06/15/20 07:50 68 16 92 06/15/20 04:17 86 21 95 06/15/20 03:54 36.7 C 86 16 106/64 95 06/15/20 03:40 73 20 92 06/15/20 02:16 36.8 C 86 16 111/69 94 06/15/20 00:42 85 22 93 06/15/20 00:40 84 22 93 06/15/20 00:07 92 H
[2020-06-15] MEDS: FUROSEMIDE 60 MG in SYRINGE 0 ML IV SCH ×2 (11:42→16:39)
--- NOTE | 2020-06-15 13:14 | Ultrasound Report ---
RENAL ULTRASOUND CLINICAL HISTORY: worsening renal function COMPARISON STUDY: CT of the abdomen and pelvis June 13, 2020. TECHNIQUE: Sonography of the kidneys and the urinary bladder was performed. FINDINGS: This exam is compromised by suboptimal penetration. There is no definite hydronephrosis. Th e right kidney measures 12 cm and the left measures 10.1 cm. Neither ureteral jet was identified. Lef t renal calculus shown on prior CT is not evident, likely due to technique. IMPRESSION: Exam significantly compromised by suboptimal penetration. No definite hydronephrosis. ACT 112: Negative or not required by law. Electronically signed by: Octavio Castanon M.D. 06/15/2020 1:12 PM
--- NOTE | 2020-06-15 17:35 | Hospitalist Progress Note ---
Date of Service June 15, 2020 Assessment & Plan (1) Constipation: Present on admission with abdominal discomfort and distended CT abd/pelvis showed marked colonic and moderate small bowel dilatation due to to a large amount of stool within the distal sigmoid colon and rectum which results in a functional colonic obstruction. Repeat KUB today showed no change in the distended and stool-filled large and small bowel. Gastro on board recommended smog enemas or soap kurtis enema bowel prep, then if no improvement to consider golytely as an alternative. Surgery on board no indication for any surgical intervention Pt has been having numerous bowel movement Diet advanced as tolerated Continue monitor closely Clinically improved (2) Acute kidney failure: Creatinine on admission 1.6, then worsening to 2.8 Renal u/s showed No definite hydronephrosis. study was difficult nephrology on board recommended to start lasix 60mg IV BID since pt is overload Will monitor I/O Continue monitor BMP will repeat UA (3) High serum lactate: Possible related to respiratory hypoxia vs sepsis vs LIZZ Pt has been afebrile CT abd/pelvis showed no free air. Marked colonic and moderate small bowel dilatation due to to a large amount of stool within the distal sigmoid colon and rectum which results in a functional colonic obstruction. IVF was discontinued due to mild pulmonary edema and worsening hypoxia Continue IV Zosyn for now Blood cx no growth lactic acid continue trending down to 2.5 today (4) Diastolic CHF, chronic: Last echocardiogram was completed on 06/22/2018, showing EF of 65 to 70%, concentric LVH, grade 1 diastolic dysfunction CXR showed Mild interstitial pulmonary edema, unchanged. IVF was discontinued due to worsening SOB Continue to hold Bumex Lasix 60mg BID started as per nephrology recommendation (5) Elevated d-dimer: D-Dimer 1070 PT had elevated d-dimer in the past Doppler of LE extremities showed no DVT unable to get a CTA chest to r/o PE due to elevate creatinine Will consider to get a V/Q scan, doubt that will help since pt has hx COPD with interstitial changes (6) HTN (hypertension): BP stable Continue to hold amlodipine (7) Dyslipidemia: Continue statin therapy, had held this several weeks ago for a trial to see if this was causing muscle weakness/pain, but has restarted it at this point (8) COPD (chronic obstructive pulmonary disease): Patient wears BiPAP at night with 4L O2, Continue BIpap for now (9) Obesity hypoventilation syndrome: - Hx of such (10) Chronic respiratory failure with hypercapnia: (11) Hypoxia: CXR showed progressive perihilar interstitial/vascular thickening suggestive of mild pulmonary edema. ABG showed pH 7.32, PCO2 65, P02 74 HCO3 33 Patient wears BiPAP at night with 4L O2 at baseline Worsening hypoxia Unable to get a CTA chest to r/o PE Has been off bipap, now on nasal canula Will repeat ABG Consider to get a CT chest without contrast if no improvement Clinically improved (12) Obesity: -BMI of 37.6 (13) Hypothyroidism: Cont levothyroxine 175 mcg daily (14) Gout: -Cont colchicine 0.6 mg daily (15) Sleep apnea: Continue bipap as above (16) DVT prophylaxis: scds/heparin subq CODE: DNR/DNI Admission and Anticipated Discharge Date Admission Date: June 13, 2020 Subjective Pt was seen and examined for follow up of constipation Lying in bed with no distress Pt had been having numerous bowel movements after received enema He said that he feels better He said that his breathing improves Denies any chest pain, palpitation, dizziness and fever Review of Systems Review of Systems: All systems reviewed & are unremarkable except as noted in Subjective Physical Exam Physical Exam: General- No acute distress, +BIPAP on Head- atraumatic Eyes- PERRL, EOMI, ENT- oropharynx clear Neck- supple, no JVD Lungs- decrease BS Heart- regular rhythm; no murmur Abdomen- +distended, nontender Extremities- no calf tenderness, +edema Neuro- alert, oriented x 3; PERRL, EOMI; no facial palsy; no dysarthria Skin- warm & dry Results & Data Results & Data ([facility]) Vital Signs (Past 12 Hours) Vital Signs Temp Pulse Pulse Resp BP Pulse Ox 06/15/20 16:00 36.6 C 86 20 119/66 91 06/15/20 13:53 87 20 92 06/15/20 12:00 36.8 C 66 20 120/70 94 06/15/20 09:54 92 06/15/20 08:00 86 06/15/20 07:50 68 16 92
[2020-06-15 19:11] LABS: Appearance Urine Cloudy (Clear); Blood Urine 3+ (Negative); Color Urine Dark Yellow; Glucose Urine UA Negative (Negative); Ketones Urine Trace (Negative); Leukocyte Esterase Urine Trace (Negative); Nitrite Urine Negative (Negative); Protein Urine 1+ (Negative); RBC Urine Automated >30 /hpf (0-4); Specific Gravity Urine 1.018 (1.000-1.030); Urobilinogen Urine Negative (Negative)
[2020-06-15 19:12] LABS: Bilirubin Urine 1+ (Negative)
[2020-06-15 19:23] LABS: Bacteria Urine Automated 1+ (Negative); Mucus Urine Present (None Prsent)
[2020-06-15] MEDS: SIMVASTATIN 20 MG TAB PO SCH (20:31)
[2020-06-16] MEDS: ALBUMIN 25% 12.5 GM/50 ML VIAL IV SCH ×3 (00:39→12:39)
[2020-06-16] MEDS: IPRATROPIUM BROMIDE NEB SOLN 0.02% 2.5 ML VIAL INH SCH ×4 (00:49→19:09)
[2020-06-16] MEDS: LEVALBUTEROL 1.25MG/0.5ML NEB INH SCH ×4 (00:49→19:08)
[2020-06-16 05:07] LABS: Hematocrit (blood only) 38.1 % (42-52); Mean Corpuscular Hemoglobin 30.2 pg (25-34); Mean Corpuscular Hgb Conc 34.1 g/dL (32-36); Mean Corpuscular Volume 88.4 fL (80-100); Mean Platelet Volume 10.6 fL (7.4-10.4); Platelet Count 205 K/uL (130-400); RDW Coefficient of Variation 14.7 % (11.5-14.5); RDW Standard Deviation 47.8 fL (36.4-46.3); Red Blood Count 4.31 M/uL (4.7-6.1); White Blood Count 5.72 K/uL (4.8-10.8)
[2020-06-16] MEDS: PIPERACILLIN/TAZOBACTAM 4.5 GM in DEXTROSE 5% 100 ML IV SCH ×3 (05:15→22:15)
[2020-06-16] MEDS: LEVOTHYROXINE SODIUM 175 MCG TABLET PO SCH (05:16)
[2020-06-16 05:28] LABS: Albumin Level 3.4 gm/dl (3.4-5.0); BUN Creatinine Ratio 35.6 (10-20); Calcium 7.8 mg/dl (8.5-10.1); Creatinine Clr Calc Pharmacy 45.2 ml/min; Est GFR (African American) 32.4; Est GFR (Non-African American) 27.9; Potassium 3.2 mmol/L (3.5-5.1)
[2020-06-16 05:31] LABS: Bilirubin,Total 1.3 mg/dl (0.2-1); Globulin 3.3 gm/dl (2.5-4.0); Total Protein 6.7 gm/dl (6.4-8.2)
[2020-06-16] MEDS ORDERED: POTASSIUM CHLORIDE PWD 20 MEQ PACK PO ONE (07:09)
--- NOTE | 2020-06-16 08:05 | Gastroenterology Progress Note ---
Date of Service June 16, 2020 Assessment & Plan (1) Constipation: 79 y/o male with multiple co-morbidities, and GI consulted over the weekend for as he was admitted for n/v, imaging with large stool burden with proximal colon dilation. He's had large amt of stool output with the addition o f enemas and Miralax and feels improved. Abd is soft, tolerating regular meals. He tells me he had a colonoscopy approx 15 years ago. - After large amount of stool cleared with enemas, would recommend continuing daily bowel regimen with Miralax 1 capful in 8 oz liquid, 1-2 x daily - Adequate hydration, daily fiber and activity as possible would also promote bowel activity - Would aim to keep K > 4 and Mg > 2 to also promote bowel motility - Would recommend arranging outpt colonoscopy as it's been quite some time since his last one and would want to r/o any sinister underlying pathology to account for his constipation; will call pt in 1-2 weeks to arrange - GI will sign off, please call with questions Thank you for allowing us to participate in the care of this patient. Please call with any acute changes, questions or concerns. Please see addendum below with additional recommendation from my supervising physician. Admission and Anticipated Discharge Date Admission Date: June 13, 2020 Supervising Physician Co-Signing Physician Notes I saw and evaluated the patient. He is noting that he has had significant improvement of his bowel habits over the past few days with the use of the enemas. At this point we would recommend use of MiraLAX 1-2 times daily. The patient was advised to consider a colonoscopy but would like to think about it prior to scheduling. Recommendations MiraLAX 17 g 1-2 times daily Please call with any questions or concerns Patient advised to consider colonoscopy GI to sign off Subjective Patient seen and examined, chart reviewed. He has had several large brown liquid BMs since initiation of enemas and feels improved. Currently resting in bed; tolerated breakfast today. Denies abd pain, n/v, hematemesis, melena, hematochezia. Review of Systems Review of Systems: All systems reviewed & are unremarkable except as noted in HPI & below Physical Exam Constitutional: WD/WN, vitals as above Respiratory: normal respiratory effort Cardiovascular: Rate/Rhythm: regular rate and regular rhythm Gastrointestinal (Abdomen): Inspection/Auscultation: normal bowel sounds Percussion/Palpation: abdomen soft; abdomen nontender Somewhat distended but soft, rectal tube in place; bag is half full of liquid brown stool Skin: no rashes, warm and dry Psychiatric: A+Ox3, euthymic affect Results & Data ([facility]) Vital Signs (Past 12 Hours) Vital Signs Temp Pulse Pulse Resp BP Pulse Ox 06/16/20 07:28 75 20 95 06/16/20 07:25 36.7 C 89 20 122/70 94 06/16/20 03:00 36.9 C 81 20 110/68 93 06/16/20 00:55 82 06/16/20 00:51 83 20 92 06/16/20 00:50 83 20 92 06/15/20 23:00 36.7 C 84 20 113/69 94 06/15/20 22:15 85 24 91 Laboratory Results 06/16/20 06/16/20 06/16/20 Range/Units 04:54 04:54 04:54 WBC 5.72 (4.8-10.8) K/uL RBC 4.31 L (4.7-6.1) M/uL Hgb 13.0 L (14.0-18.0) g/dL Hct 38.1 L (42-52) % MCV 88.4 (80-100) fL MCH 30.2 (25-34) pg MCHC 34.1 (32-36) g/dL RDW Std Deviation 47.8 H (36.4-46.3) fL RDW Coeff of Maximilian 14.7 H (11.5-14.5) % Plt Count 205 (130-400) K/uL MPV 10.6 H (7.4-10.4) fL Sodium 138 (136-145) mmol/L Potassium 3.2 L (3.5-5.1) mmol/L Chloride 96 L (98-107) mmol/L Carbon Dioxide 36 H (21-32) mmol/L Anion Gap 6.0 (3-11) BUN 77 H (7-18) mg/dl Creatinine 2.17 H D (0.6-1.4) mg/dl Est Cr Clr Drug Dosing 45.2 ml/min Est GFR ( Amer) 32.4 Est GFR (Non-Af Amer) 27.9 BUN/Creatinine Ratio 35.6 H (10-20) Glucose 116 H (70-99) mg/dl Lactate 1.3 (0.4-2.0) mmol/L Calcium 7.8 L (8.5-10.1) mg/dl Total Bilirubin 1.3 H (0.2-1) mg/dl AST 25 (15-37) U/L ALT 27 (12-78) U/L Alkaline Phosphatase 58 (45-117) U/L Total Protein 6.7 (6.4-8.2) gm/dl Albumin 3.4 (3.4-5.0) gm/dl Globulin 3.3 (2.5-4.0) gm/dl Albumin/Globulin Ratio 1.0 (0.9-2) Urine Color Urine Appearance (Clear) Urine pH (4.5-7.5) Ur Specific [place] (1.000-1.030) Urine Protein (Negative) Urine Glucose (UA) (Negative) Urine Ketones (Negative) Urine Blood (Negative) Urine Nitrite (Negative) Urine Bilirubin (Negative) Urine Urobilinogen (Negative) Ur Leukocyte Esterase (Negative) Urine WBC (Auto) (0-5) /hpf Urine RBC (Auto) (0-4) /hpf U Hyaline Cast (Auto) (0-5) /lpf U Epithel Cells (Auto) (0-5) /lpf Urine Bacteria (Auto) (Negative) Granular Casts (0) /lpf Urine Mucus (None Prsent) 06/15/20 Range/Units 18:55 WBC (4.8-10.8) K/uL RBC (4.7-6.1) M/uL Hgb (14.0-18.0) g/dL Hct (42-52) % MCV (80-100) fL MCH (25-34) pg MCHC (32-36) g/dL RDW Std Deviation (36.4-46.3) fL RDW Coeff of Maximilian (11.5-14.5) % Plt Count (130-400) K/uL MPV (7.4-10.4) fL Sodium (136-145) mmol/L Potassium (3.5-5.1) mmol/L Chloride (98-107) mmol/L Carbon Dioxide (21-32) mmol/L Anion Gap (3-11) BUN (7-18) mg/dl Creatinine (0.6-1.4) mg/dl Est Cr Clr Drug Dosing ml/min Est GFR ( Amer) Est GFR (Non-Af Amer) BUN/Creatinine Ratio (10-20) Glucose (70-99) mg/dl Lactate (0.4-2.0) mmol/L Calcium (8.5-10.1) mg/dl Total Bilirubin (0.2-1) mg/dl AST (15-37) U/L ALT (12-78) U/L Alkaline Phosphatase (45-117) U/L Total Protein (6.4-8.2) gm/dl Albumin (3.4-5.0) gm/dl Globulin (2.5-4.0) gm/dl Albumin/Globulin Ratio (0.9-2) Urine Color Dark Yellow Urine Appearance Cloudy A (Clear) Urine pH 5.0 (4.5-7.5) Ur Specific [place] 1.018 (1.000-1.030) Urine Protein 1+ H (Negative) Urine Glucose (UA) Negative (Negative) Urine Ketones Trace H (Negative) Urine Blood 3+ H (Negative) Urine Nitrite Negative (Negative) Urine Bilirubin 1+ H (Negative) Urine Urobilinogen Negative (Negative) Ur Leukocyte Esterase Trace H (Negative) Urine WBC (Auto) 1-5 (0-5) /hpf Urine RBC (Auto) >30 H (0-4) /hpf U Hyaline Cast (Auto) 1-5 (0-5) /lpf U Epithel Cells (Auto) 10-20 H (0-5) /lpf Urine Bacteria (Auto) 1+ H (Negative) Granular Casts 1-5 H (0) /lpf Urine Mucus Present A (None Prsent)
[2020-06-16] MEDS: ASPIRIN 81 MG ECTAB PO SCH (09:37)
[2020-06-16] MEDS: HEPARIN SOD 5,000 UNIT/0.5 ML VIAL SQ SCH ×2 (09:37→20:36)
[2020-06-16] MEDS: CHOLECALCIFEROL 1,000 UNITS 25 MCG TAB PO SCH (09:37)
[2020-06-16] MEDS: PROLENSA OP SCH ×2 (09:44→20:35)
[2020-06-16] MEDS: DUREZOL OP SCH ×2 (09:44→20:34)
[2020-06-16] MEDS: POTASSIUM CHLORIDE PWD 20 MEQ PACK PO SCH (09:44)
[2020-06-16] MEDS: FUROSEMIDE 60 MG in SYRINGE 0 ML IV SCH ×2 (09:45→18:03)
--- NOTE | 2020-06-16 10:59 | Surgery Progress Note ---
Date of Service June 16, 2020 Assessment & Plan (1) Constipation: Patient states he is feeling well; denies any abdominal complaints WBC 5.7 His diet has been advanced of which he is tolerating + BM's, rectal icu manager in place We will follow peripherally, no current surgical issues. Please call with any questions/concerns Pt seen and examined with Dr. Ware Admission and Anticipated Discharge Date Admission Date: June 13, 2020 Subjective Patient examined at bedside. Says he is feeling well. Denies any abdominal complaints. He is tolerating a diet. Having + bowel function, noticed in rectal icu manager. Physical Exam Physical Exam: awake Constitutional: no acute distress Results & Data ([facility]) Vital Signs (Past 12 Hours) Vital Signs Temp Pulse Pulse Resp BP Pulse Ox 06/16/20 07:28 75 20 95 06/16/20 07:25 36.7 C 89 20 122/70 94 06/16/20 03:00 36.9 C 81 20 110/68 93 06/16/20 00:55 82 06/16/20 00:51 83 20 92 06/16/20 00:50 83 20 92 06/15/20 23:00 36.7 C 84 20 113/69 94 PG Care Time/CCT Total # of Minutes Spent Total Time Spent with Patient: Total time spent is greater than 50% in coordination of care (as documented) at patient's floor/unit and/or counseling patient: Coding Level of Care Code 11305 Subseq Hosp Care Lvl 1 Diagnoses Constipation K59.00
--- NOTE | 2020-06-16 15:50 | Nephrology Progress Note ---
Date of Service June 16, 2020 Assessment & Plan (1) Acute kidney failure: Last creatinine in June 2018 was 1.12 was admitted with a serum creatinine of 1.6, which has been gradually increasing to peak at 2.9 on 06/14, down to 2.2 today. Feels a bit better; still on 5L or bipap though. Likely secondary to fluid overload -cont IV Lasix 60 mg twice daily. He has ongoing diarrhea and his fluid management becomes even more tricky as his blood pressure has been on the lower side. His albumin is within normal range and would stop this. -stopped IV albumin -with many reasons for hypokalemia >> on K 20 mEq daily and gave 40 mEq x one dose today as well -cont strict I/O -cont to hold CCB d/t hypotension He will nephrology f/u on discharge. care coordinated w/ DR cramer Admission and Anticipated Discharge Date Admission Date: June 13, 2020 Subjective seen on rounds at 1345; no c/o; renal u/s suboptimal; GI made extensive bowel regimen recs; pt states tired by OT and too tired from this to do much PT Review of Systems Review of Systems: All systems reviewed & are unremarkable except as noted in Subjective Physical Exam Constitutional: well developed, well nourished, + obese and + frail appearing; no acute distress Eyes: EOM intact bilaterally ENMT: Ears: no external ear abnormality Nose: no external nose abnormality Mouth: + dry oral mucous membranes Neck: no nuchal rigidity Respiratory: normal respiratory effort Auscultation: + diminished lung sounds on 5L NC Cardiovascular: Rate/Rhythm: regular rate and regular rhythm Extremities: no edema Gastrointestinal (Abdomen): Inspection/Auscultation: normal bowel sounds Percussion/Palpation: abdomen soft; abdomen nontender rectal tube present Musculoskeletal: Extremities: + abnormal strength Skin: no rashes, warm and dry Neurologic: cary, fluentbut limited speech, no tremor, gen weakness Psychiatric: Orientation: oriented to person and oriented to place Genitourinary: vann present Results & Data ([facility]) Vital Signs (Past 12 Hours) Vital Signs Temp Pulse Resp BP Pulse Ox 06/16/20 15:32 36.6 C 84 19 122/68 95 06/16/20 12:39 88 22 95 06/16/20 11:45 36.6 C 85 20 121/68 94 06/16/20 07:28 75 20 95 06/16/20 07:25 36.7 C 89 20 122/70 94 Laboratory Results 06/16/20 04:54 06/16/20 04:54
--- NOTE | 2020-06-16 17:00 | Hospitalist Progress Note ---
Date of Service June 16, 2020 Assessment & Plan (1) Constipation: Present on admission with abdominal discomfort and distended CT abd/pelvis showed marked colonic and moderate small bowel dilatation due to to a large amount of stool within the distal sigmoid colon and rectum which results in a functional colonic obstruction. Repeat KUB today showed no change in the distended and stool-filled large and small bowel. Gastro on board smog enemas or soap kurtis enema bowel prep was given Surgery on board no indication for any surgical intervention Pt has been having numerous bowel movement Diet advanced as tolerated GI recommended MiraLAX 17 g 1-2 times daily Will keep K above 4 and Mg above 2 to facilitate bowel motility GI recommended outpatient colonoscopy, pt would think about it before scheduling it Continue monitor closely Clinically improved (2) Acute kidney failure: Creatinine on admission 1.6, then worsening to 2.8 Renal u/s showed No definite hydronephrosis. study was difficult Nephrology on board recommended to continue Lasix 60 mg IV BID Continue monitor BMP (3) High serum lactate: Possible related to respiratory hypoxia vs sepsis vs LIZZ Pt has been afebrile CT abd/pelvis showed no free air. Marked colonic and moderate small bowel dilatation due to to a large amount of stool within the distal sigmoid colon and rectum which results in a functional colonic obstruction. IVF was discontinued due to mild pulmonary edema and worsening hypoxia Continue IV Zosyn for now Blood cx no growth Lactic acid normalized at 1.3 (4) Diastolic CHF, chronic: Last echocardiogram was completed on 06/22/2018, showing EF of 65 to 70%, concentric LVH, grade 1 diastolic dysfunction CXR showed Mild interstitial pulmonary edema, unchanged. IVF was discontinued due to worsening SOB Continue to hold Bumex Continue Lasix IV 60mg BID Continue oxygen supplement (5) Elevated d-dimer: D-Dimer 1070 PT had elevated d-dimer in the past Doppler of LE extremities showed no DVT unable to get a CTA chest to r/o PE due to elevate creatinine Will consider to get a V/Q scan, doubt that will help since pt has hx COPD with interstitial changes (6) HTN (hypertension): BP stable Continue to hold amlodipine (7) Dyslipidemia: Continue statin therapy, had held this several weeks ago for a trial to see if this was causing muscle weakness/pain, but has restarted it at this point (8) COPD (chronic obstructive pulmonary disease): Patient wears BiPAP at night with 4L O2, Continue BIpap for now (9) Obesity hypoventilation syndrome: - Hx of such (10) Chronic respiratory failure with hypercapnia: (11) Hypoxia: CXR showed progressive perihilar interstitial/vascular thickening suggestive of mild pulmonary edema. ABG showed pH 7.32, PCO2 65, P02 74 HCO3 33 Patient wears BiPAP at night with 4L O2 at baseline Worsening hypoxia Unable to get a CTA chest to r/o PE Has been off bipap, now on nasal canula Will repeat ABG Consider to get a CT chest without contrast if no improvement Clinically improved (12) Obesity: -BMI of 37.6 (13) Hypothyroidism: Cont levothyroxine 175 mcg daily (14) Gout: -Cont colchicine 0.6 mg daily (15) Sleep apnea: Continue bipap as above (16) DVT prophylaxis: scds/heparin subq CODE: DNR/DNI Admission and Anticipated Discharge Date Admission Date: June 13, 2020 Subjective Pt was seen and examined for follow up of hypoxia and abdominal discomfort Lying in bed with no distress watching TV Pt said that he feels a lot better He continues to have multiple bowel movement Denies any chest pain, palpitation, dizziness and fever Review of Systems Review of Systems: All systems reviewed & are unremarkable except as noted in Subjective Physical Exam Physical Exam: General- No acute distress, +BIPAP on Head- atraumatic Eyes- PERRL, EOMI, ENT- oropharynx clear Neck- supple, no JVD Lungs- decrease BS Heart- regular rhythm; no murmur Abdomen- +distended, nontender Extremities- no calf tenderness, +edema Neuro- alert, oriented x 3; PERRL, EOMI; no facial palsy; no dysarthria Skin- warm & dry Results & Data Results & Data ([facility]) Vital Signs (Past 12 Hours) Vital Signs Temp Pulse Resp BP Pulse Ox 06/16/20 15:32 36.6 C 84 19 122/68 95 06/16/20 12:39 88 22 95 06/16/20 11:45 36.6 C 85 20 121/68 94 06/16/20 07:28 75 20 95 06/16/20 07:25 36.7 C 89 20 122/70 94
[2020-06-16] MEDS: SIMVASTATIN 20 MG TAB PO SCH (20:36)
[2020-06-17] MEDS: LEVALBUTEROL 1.25MG/0.5ML NEB INH SCH ×4 (00:01→18:38)
[2020-06-17] MEDS: IPRATROPIUM BROMIDE NEB SOLN 0.02% 2.5 ML VIAL INH SCH ×4 (00:03→18:38)
[2020-06-17] MEDS: LEVOTHYROXINE SODIUM 175 MCG TABLET PO SCH (05:11)
[2020-06-17] MEDS: PIPERACILLIN/TAZOBACTAM 4.5 GM in DEXTROSE 5% 100 ML IV SCH ×2 (05:25→13:26)
[2020-06-17] MEDS: POTASSIUM CHLORIDE PWD 20 MEQ PACK PO SCH (09:24)
[2020-06-17] MEDS: CHOLECALCIFEROL 1,000 UNITS 25 MCG TAB PO SCH (09:24)
[2020-06-17] MEDS: FUROSEMIDE 60 MG in SYRINGE 0 ML IV SCH ×2 (09:24→16:38)
[2020-06-17] MEDS: ASPIRIN 81 MG ECTAB PO SCH (09:24)
[2020-06-17] MEDS: PROLENSA OP SCH ×2 (09:25→20:42)
[2020-06-17] MEDS: DUREZOL OP SCH ×2 (09:25→20:42)
[2020-06-17] MEDS: HEPARIN SOD 5,000 UNIT/0.5 ML VIAL SQ SCH ×2 (09:26→20:40)
[2020-06-17 11:22] LABS: BUN Creatinine Ratio 43.9 (10-20); Calcium 7.9 mg/dl (8.5-10.1); Creatinine Clr Calc Pharmacy 69.4 ml/min; Est GFR (African American) 56.5; Est GFR (Non-African American) 48.7; Potassium 3.2 mmol/L (3.5-5.1)
--- NOTE | 2020-06-17 12:11 | Nephrology Progress Note ---
Date of Service June 17, 2020 Assessment & Plan (1) Acute kidney failure: Last creatinine in June 2018 was 1.12 was admitted with a serum creatinine of 1.6, which has been gradually increasing to peak at 2.9 on 06/14, down to 1.4 today. Feels a bit better; still on 4-5L though 02 needs down trending. Likely secondary to fluid overload -cont IV Lasix 60 mg twice daily. -upped K to 20 m Eq tid from daily >> many reasons as below for low K He has ongoing diarrhea and his fluid management becomes even more tricky as his blood pressure has been on the lower side. His albumin is within normal range and would stop this. -avoid IV albumin w/ hypoxia/vol OL -cont strict I/O -cont to hold CCB d/t hypotension He will nephrology f/u on discharge. care coordinated w/ DR cramre Admission and Anticipated Discharge Date Admission Date: June 13, 2020 Subjective no interval clniical events; down to 4L NC this am but back to 5 on my midday exam; thinks his breathing is a bit better Review of Systems Review of Systems: All systems reviewed & are unremarkable except as noted in Subjective Physical Exam Constitutional: well developed, well nourished, + obese and + frail appearing; no acute distress Eyes: EOM intact bilaterally ENMT: Ears: no external ear abnormality Nose: no external nose abnormality Mouth: + dry oral mucous membranes Neck: no nuchal rigidity Respiratory: normal respiratory effort Auscultation: + diminished lung sounds Cardiovascular: Rate/Rhythm: regular rate and regular rhythm Extremities: no edema Gastrointestinal (Abdomen): Inspection/Auscultation: normal bowel sounds Percussion/Palpation: abdomen soft; abdomen nontender rectal tube present Musculoskeletal: Extremities: + abnormal strength Skin: no rashes, warm and dry Psychiatric: Orientation: oriented to person and oriented to place Genitourinary: vann present Results & Data ([facility]) Vital Signs (Past 12 Hours) Vital Signs Temp Pulse Pulse Resp BP Pulse Ox 06/17/20 09:21 74 83 20 98 06/17/20 09:00 82 16 94 06/17/20 08:00 87 21 93 06/17/20 07:00 78 16 97 06/17/20 06:45 81 17 97 06/17/20 03:55 36.8 C 85 20 132/74 93 06/17/20 03:44 85 22 94 Laboratory Results 06/16/20 04:54 06/17/20 10:47
[2020-06-17] MEDS ORDERED: POTASSIUM CHLORIDE CRTAB 20 MEQ TABCR PO STA (12:49)
--- NOTE | 2020-06-17 17:03 | Hospitalist Progress Note ---
Date of Service June 17, 2020 Assessment & Plan (1) Constipation: Present on admission with abdominal discomfort and distended CT abd/pelvis showed marked colonic and moderate small bowel dilatation due to to a large amount of stool within the distal sigmoid colon and rectum which results in a functional colonic obstruction. Repeat KUB today showed no change in the distended and stool-filled large and small bowel. Gastro on board smog enemas or soap kurtis enema bowel prep was given Surgery on board no indication for any surgical intervention Pt has been having numerous bowel movement Diet advanced as tolerated GI recommended MiraLAX 17 g 1-2 times daily Will keep K above 4 and Mg above 2 to facilitate bowel motility GI recommended outpatient colonoscopy, pt would think about it before scheduling it Continue monitor closely Clinically improved (2) Acute kidney failure: Creatinine on admission 1.6, then worsening to 2.8 Renal u/s showed No definite hydronephrosis. study was difficult Creatinine normalized Nephrology on board recommended to continue Lasix 60 mg IV BID Avoid nephrotoxic agents Continue monitor BMP Follow up with nephrology on discharge (3) High serum lactate: Possible related to respiratory hypoxia vs sepsis vs LIZZ Pt has been afebrile Doubt sepsis CT abd/pelvis showed no free air. Marked colonic and moderate small bowel dilatation due to to a large amount of stool within the distal sigmoid colon and rectum which results in a functional colonic obstruction. IVF was discontinued due to mild pulmonary edema and worsening hypoxia Blood cx no growth Lactic acid normalized at 1.3 Will discontinue IV abx today Check procalcitonin in am (4) Diastolic CHF, chronic: Last echocardiogram was completed on 06/22/2018, showing EF of 65 to 70%, concentric LVH, grade 1 diastolic dysfunction CXR showed Mild interstitial pulmonary edema, unchanged. IVF was discontinued due to worsening SOB Continue to hold Bumex Continue Lasix IV 60mg BID as per nephrology Continue oxygen supplement (5) Elevated d-dimer: D-Dimer 1070 PT had elevated d-dimer in the past Doppler of LE extremities showed no DVT unable to get a CTA chest to r/o PE due to elevate creatinine on admission Might consider to get a V/Q scan, doubt that will help since pt has hx COPD with interstitial changes (6) HTN (hypertension): BP stable Continue to hold amlodipine (7) Dyslipidemia: Continue statin therapy, had held this several weeks ago for a trial to see if this was causing muscle weakness/pain, but has restarted it at this point (8) COPD (chronic obstructive pulmonary disease): (9) Obesity hypoventilation syndrome: (10) Chronic respiratory failure with hypercapnia: (11) Hypoxia: CXR showed progressive perihilar interstitial/vascular thickening suggestive of mild pulmonary edema. ABG showed pH 7.32, PCO2 65, P02 74 HCO3 33 Patient wears BiPAP at night with 4L O2 at baseline Worsening hypoxia Unable to get a CTA chest to r/o PE Has been off bipap, now on nasal canula Consider to get a CT chest without contrast if no improvement Will continue wean off oxygen Clinically improved (12) Obesity: -BMI of 37.6 (13) Hypothyroidism: Cont levothyroxine 175 mcg daily (14) Gout: -Cont colchicine 0.6 mg daily (15) Sleep apnea: Continue bipap as above (16) DVT prophylaxis: scds/heparin subq CODE: DNR/DNI Disposition Will transfer to medical Admission and Anticipated Discharge Date Admission Date: June 13, 2020 Subjective Pt was seen and examined for follow up of hypoxia and abdominal discomfort Lying in bed with no distress watching TV Pt said that he feels a lot better He continues to require 4L NC He is not having any abdominal discomfort Denies any chest pain, palpitation, dizziness and fever Review of Systems Review of Systems: All systems reviewed & are unremarkable except as noted in Subjective Physical Exam Physical Exam: General- No acute distress, +BIPAP on Head- atraumatic Eyes- PERRL, EOMI, ENT- oropharynx clear Neck- supple, no JVD Lungs- decrease BS Heart- regular rhythm; no murmur Abdomen- nontender Extremities- no calf tenderness, +edema Neuro- alert, oriented x 3; PERRL, EOMI; no facial palsy; no dysarthria Skin- warm & dry Results & Data Results & Data ([facility]) Vital Signs (Past 12 Hours) Vital Signs Pulse Pulse Resp Pulse Ox 06/17/20 14:50 90 29 H 95 06/17/20 14:40 94 H 28 H 96 06/17/20 14:30 89 19 95 06/17/20 14:20 88 21 100 06/17/20 14:15 89 20 94 06/17/20 14:10 90 26 H 94 06/17/20 14:00 91 H 30 H 92 04/13/21 13:50 90 25 H 95 04//21 13:40 89 25 H 94 0421 13:30 98 H 35 H 93 04//21 13:20 91 H 26 H 94 04/ 13:10 94 H 33 H 94 04 13:00 91 H 32 H 95 // 12:50 91 H 29 H 94 06/17/21 12:40 87 23 93 0421 12:30 88 20 94 21 12:20 71 24 94 04//21 12:10 91 H 25 H 94 06/17/20 12:00 87 22 94 04//21 11:50 87 27 H 94 06/17/20 11:40 85 30 H 94 06/17/20 11:30 86 26 H 96 06/17/20 11:20 85 16 94 06/17/20 11:10 83 18 95 06/17/20 11:00 85 23 94 06/17/20 10:50 87 24 94 06/17/20 10:40 84 17 97 06/17/20 10:30 85 21 93 06/17/20 10:20 82 18 94 06/17/20 10:10 86 22 94 06/17/20 10:00 87 24 93 06/17/20 09:50 82 21 94 06/17/20 09:40 86 31 H 93 06/17/20 09:30 82 16 97 06/17/20 09:21 74 83 20 98 06/17/20 09:20 83 18 98 06/17/20 09:10 83 14 96 06/17/20 09:00 82 16 94 06/17/20 08:00 87 21 93 06/17/20 07:00 78 16 97 06/17/20 06:45 81 17 97
[2020-06-17] MEDS: SIMVASTATIN 20 MG TAB PO SCH (20:41)
[2020-06-17] MEDS ORDERED: COUGH DROP (SUGAR FREE) LOZ 24 LOZ/1 BOX BUCCAL PRN (22:32)
[2020-06-17] MEDS ORDERED: COUGH DROP (SUGAR FREE) LOZ 24 LOZ/1 BOX BUCCAL ONE (22:42)
[2020-06-18] MEDS: LEVALBUTEROL 1.25MG/0.5ML NEB INH SCH ×3 (00:04→20:05)
[2020-06-18] MEDS: IPRATROPIUM BROMIDE NEB SOLN 0.02% 2.5 ML VIAL INH SCH ×3 (00:04→20:05)
[2020-06-18] MEDS: LEVOTHYROXINE SODIUM 175 MCG TABLET PO SCH (06:46)
[2020-06-18 07:19] LABS: Hematocrit (blood only) 39.7 % (42-52); Mean Corpuscular Hemoglobin 29.8 pg (25-34); Mean Corpuscular Hgb Conc 32.7 g/dL (32-36); Mean Corpuscular Volume 91.1 fL (80-100); Mean Platelet Volume 11.1 fL (7.4-10.4); Platelet Count 150 K/uL (130-400); RDW Coefficient of Variation 15.2 % (11.5-14.5); RDW Standard Deviation 51.3 fL (36.4-46.3); Red Blood Count 4.36 M/uL (4.7-6.1); White Blood Count 6.64 K/uL (4.8-10.8)
[2020-06-18 07:49] LABS: BUN Creatinine Ratio 49.5 (10-20); Calcium 8.9 mg/dl (8.5-10.1); Creatinine Clr Calc Pharmacy 83.2 ml/min; Est GFR (African American) 70.5; Est GFR (Non-African American) 60.8; Potassium 3.1 mmol/L (3.5-5.1)
[2020-06-18] MEDS ORDERED: POTASSIUM CHLORIDE CRTAB 20 MEQ TABCR PO STA ×2 (07:53→22:13)
--- NOTE | 2020-06-18 07:56 | Hospitalist Progress Note ---
Date of Service June 18, 2020 Assessment & Plan (1) Constipation: Present on admission with abdominal discomfort and distended CT abd/pelvis showed marked colonic and moderate small bowel dilatation due to to a large amount of stool within the distal sigmoid colon and rectum which results in a functional colonic obstruction. Repeat KUB showed no change in the distended and stool-filled large and small bowel. GI on board smog enemas or soap kurtis enema bowel prep was given Surgery on board no indication for any surgical intervention Pt has been having numerous bowel movement Diet advanced as tolerated GI recommended MiraLAX 17 g 1-2 times daily Will keep K > 4 and Mg > 2 to facilitate bowel motility GI recommended outpatient colonoscopy, pt would think about it before scheduling it Continue monitor closely Clinically seems improved however still very fatigued (2) Acute kidney failure: Creatinine on admission 1.6, then worsening to 2.9, now down to 1.1 Renal u/s showed No definite hydronephrosis. study was difficult Creatinine normalized Nephrology on board recommended to continue Lasix 60 mg IV BID Avoid nephrotoxic agents Continue monitor BMP Follow up with nephrology on discharge (3) High serum lactate: Possible related to respiratory hypoxia vs sepsis vs LIZZ Pt has been afebrile Doubt sepsis CT abd/pelvis showed no free air. Marked colonic and moderate small bowel dilatation due to to a large amount of stool within the distal sigmoid colon and rectum which results in a functional colonic obstruction. IVF was discontinued due to mild pulmonary edema and worsening hypoxia Blood cx no growth Lactic acid normalized at 1.3 Will discontinue IV abx today Check procalcitonin in am Procalcitonin elevated at 7 (06/18) Continue zosyn, add doxy obtain blood cultx CT PE ordered for further eval (4) Diastolic CHF, chronic: Last echocardiogram was completed on 06/22/2018, showing EF of 65 to 70%, concentric LVH, grade 1 diastolic dysfunction CXR showed Mild interstitial pulmonary edema, unchanged. IVF was discontinued due to worsening SOB Continue to hold Bumex Continue Lasix IV 60mg BID as per nephrology Continue oxygen supplement (5) Elevated d-dimer: D-Dimer 1070 PT had elevated d-dimer in the past Doppler of LE extremities showed no DVT unable to get a CTA chest to r/o PE due to elevate creatinine on admission Might consider to get a V/Q scan, doubt that will help since pt has hx COPD with interstitial changes Cr normalized, will obtain CT PE (06/18) (6) HTN (hypertension): BP stable Continue to hold amlodipine (7) Dyslipidemia: Continue statin therapy, had held this several weeks ago for a trial to see if this was causing muscle weakness/pain, but has restarted it at this point (8) COPD (chronic obstructive pulmonary disease): Patient wears BiPAP at night with 4L O2, Continue BIpap for now (9) Obesity hypoventilation syndrome: - Hx of such (10) Chronic respiratory failure with hypercapnia: (11) Hypoxia: CXR showed progressive perihilar interstitial/vascular thickening suggestive of mild pulmonary edema. ABG showed pH 7.32, PCO2 65, P02 74 HCO3 33 Patient wears BiPAP at night with 4L O2 at baseline Worsening hypoxia Unable to get a CTA chest to r/o PE Has been off bipap, now on nasal canula Consider to get a CT chest without contrast if no improvement Will continue wean off oxygen Clinically improved Cr now normalized, will obtain CT PE (06/18) (12) Obesity: -BMI of 37.6 (13) Hypothyroidism: Cont levothyroxine 175 mcg daily (14) Gout: -Cont colchicine 0.6 mg daily (15) Sleep apnea: Continue bipap as above (16) DVT prophylaxis: scds/heparin subq CODE: DNR/DNI Disposition: transferred to medical Admission and Anticipated Discharge Date Admission Date: June 13, 2020 Subjective Pt was seen and examined for follow up of hypoxia and abdominal discomfort Lying in bed in no distress However appears very fatigued He continues to require 4L NC He is not having any abdominal discomfort He says that he feels better however he does feel tired Denies any chest pain, palpitation, dizziness and fever Procalcitonin elevated, therefore will cont. zosyn, add doxy Cr normalized, discussed w/ nephro, ok to do CT PE Review of Systems Review of Systems: All systems reviewed & are unremarkable except as noted in HPI & below Constitutional: + fatigue and + weakness (generalized); no fever and no chills Respiratory: + dyspnea (improved) Cardiovascular: no chest pain and no palpitations Gastrointestinal: no abdominal pain, no nausea and no vomiting Physical Exam Physical Exam: General- Elderly obese frail male laying in bed in n acute distress, on 4L NC Head- normocephalic, atraumatic Eyes- PERRL, EOMI, ENT- oropharynx clear Neck- supple, no JVD Lungs- decrease BS, Difficult lung exam as patient is very weak to move Heart- regular rhythm; no murmur Abdomen- nontender, obese, somewhat distended, sluggish bowel sounds Extremities- no calf tenderness, +edema Neuro- alert, oriented x 3; PERRL, EOMI; no facial palsy; no dysarthria, +generalized weakness Skin- warm & dry Results & Data Results & Data ([facility]) Vital Signs (Past 12 Hours) Vital Signs Temp Pulse Pulse Resp BP BP Pulse Ox 06/18/20 07:34 94 H 06/18/20 07:28 86 20 95 06/18/20 04:25 92 H 18 92 06/18/20 04:00 37.0 C 88 18 127/80 95 06/18/20 00:06 90 90 20 96 06/18/20 00:00 93 H 06/17/20 23:15 36.6 C 89 18 129/74 93 06/17/20 21:30 97 H 20 124/72 92 Laboratory Results 06/18/20 06/18/20 06/18/20 Range/Units 07:01 07:01 07:01 WBC 6.64 (4.8-10.8) K/uL RBC 4.36 L (4.7-6.1) M/uL Hgb 13.0 L (14.0-18.0) g/dL Hct 39.7 L (42-52) % MCV 91.1 (80-100) fL MCH 29.8 (25-34) pg MCHC 32.7 (32-36) g/dL RDW Std Deviation 51.3 H (36.4-46.3) fL RDW Coeff of Maximilian 15.2 H (11.5-14.5) % Plt Count 150 (130-400) K/uL MPV 11.1 H (7.4-10.4) fL Sodium 143 (136-145) mmol/L Potassium 3.1 L (3.5-5.1) mmol/L Chloride 100 (98-107) mmol/L Carbon Dioxide 39 H (21-32) mmol/L Anion Gap 4.0 (3-11) BUN 56 H (7-18) mg/dl Creatinine 1.14 (0.6-1.4) mg/dl Est Cr Clr Drug Dosing 83.2 ml/min Est GFR ( Amer) 70.5 Est GFR (Non-Af Amer) 60.8 BUN/Creatinine Ratio 49.5 H (10-20) Glucose 118 H (70-99) mg/dl Calcium 8.9 (8.5-10.1) mg/dl Procalcitonin Pending 06/17/20 Range/Units 10:47 WBC (4.8-10.8) K/uL RBC (4.7-6.1) M/uL Hgb (14.0-18.0) g/dL Hct (42-52) % MCV (80-100) fL MCH (25-34) pg MCHC (32-36) g/dL RDW Std Deviation (36.4-46.3) fL RDW Coeff of Maximilian (11.5-14.5) % Plt Count (130-400) K/uL MPV (7.4-10.4) fL Sodium 140 (136-145) mmol/L Potassium 3.2 L (3.5-5.1) mmol/L Chloride 99 (98-107) mmol/L Carbon Dioxide 36 H (21-32) mmol/L Anion Gap 5.0 (3-11) BUN 60 H (7-18) mg/dl Creatinine 1.37 D (0.6-1.4) mg/dl Est Cr Clr Drug Dosing 69.4 ml/min Est GFR ( Amer) 56.5 Est GFR (Non-Af Amer) 48.7 BUN/Creatinine Ratio 43.9 H (10-20) Glucose 138 H (70-99) mg/dl Calcium 7.9 L (8.5-10.1) mg/dl Procalcitonin Medications Administered Current Inpatient Medications Acetaminophen (Acetaminophen 325 Mg Tab) 650 mg PO Q4H PRN PRN Reason: Moderate Pain Stop: 07/13/20 18:19 Amlodipine Besylate (Amlodipine Besylate 5 Mg Tab) 5 mg PO [facility] Stop: 07/14/20 08:59 Last Admin: 06/14/20 11:20 Dose: 5 mg Documented by: Aspirin (Aspirin 81 Mg Ectab) 81 mg PO [facility] Stop: 07/14/20 08:59 Last Admin: 06/17/20 09:24 Dose: 81 mg Documented by: Calcium Carbonate (Calcium Carbonate 500 Mg Chewable Tab) 500 mg PO BID PRN PRN Reason: gerd Stop: 07/13/20 18:19 Last Admin: 06/15/20 18:12 Dose: 500 mg Documented by: Heparin Sodium (Porcine) (Heparin Sod 5,000 Unit/0.5 Ml Vial) 5,000 units SQ Q12 [facility] Stop: 07/13/20 20:59 Last Admin: 06/17/20 20:40 Dose: 5,000 units Documented by: Furosemide 60 mg/ Syringe 6 mls @ 4 mls/min IV BID17 [facility] Stop: 07/15/20 11:14 Last Admin: 06/17/20 16:38 Dose: 4 mls/min Documented by: Ipratropium Bourbon (Ipratropium [place] Neb Soln 0.02% 2.5 Ml Vial) 0.5 mg INH Q6R [facility] Stop: 07/14/20 00:59 Last Admin: 06/18/20 07:26 Dose: 0.5 mg Documented by: Levalbuterol HCl (Levalbuterol 1.25mg/0.5ml Neb) 1.25 mg INH Q6R [facility] Stop: 07/14/20 00:59 Last Admin: 06/18/20 07:27 Dose: 1.25 mg Documented by: Levothyroxine Sodium (Levothyroxine Sodium 175 Mcg Tablet) 175 mcg PO DAILYBB [facility] Stop: 07/14/20 06:29 Last Admin: 06/18/20 06:46 Dose: 175 mcg Documented by: Menthol (Cough Drop (Sugar Free) Charla 24 Charla/1 Box) 1 charla BUCCAL NOW PRN PRN Reason: Sore Throat Stop: 07/17/20 22:31 Prolensa~Non- Formulary Patient's Own Med 1 ea OP BID [facility] Stop: 07/14/20 08:59 Last Admin: 06/17/20 20:42 Dose: 1 drops Documented by: Durezol~Non- Formulary Patient's Own Med 1 ea OP BID [facility] Stop: 07/14/20 08:59 Last Admin: 06/17/20 20:42 Dose: 1 drops Documented by: Potassium Chloride (Potassium Chloride Pwd 20 Meq Pack) 20 meq PO QAM [facility] Stop: 07/16/20 08:59 Last Admin: 06/17/20 09:24 Dose: 20 meq Documented by: Potassium Chloride (Potassium Chloride Crtab 20 Meq Tabcr) 40 meq PO NOW STA Stop: 06/18/20 07:54 Simvastatin (Simvastatin 20 Mg Tab) 20 mg PO [facility] Stop: 07/13/20 20:59 Last Admin: 06/17/20 20:41 Dose: 20 mg Documented by: Vitamin D (Cholecalciferol 1,000 Units 25 Mcg Tab) [facility] Stop: 07/14/20 08:59 Last Admin: 06/17/20 09:24 Dose: 1,000 units Documented by:
[2020-06-18] MEDS ORDERED: PIPERACILL/TAZOBAC CONSULT ACTIVE PRN (08:38)
[2020-06-18] MEDS ORDERED: PIPERACILLIN/TAZOBACTAM 3.375 GM in DEXTROSE 5% 100 ML IV ONE (08:45)
[2020-06-18] MEDS: ASPIRIN 81 MG ECTAB PO SCH (08:48)
[2020-06-18] MEDS: CHOLECALCIFEROL 1,000 UNITS 25 MCG TAB PO SCH (08:48)
[2020-06-18] MEDS: HEPARIN SOD 5,000 UNIT/0.5 ML VIAL SQ SCH ×2 (08:48→22:47)
[2020-06-18] MEDS: DUREZOL OP SCH ×2 (08:49→22:48)
[2020-06-18] MEDS: FUROSEMIDE 60 MG in SYRINGE 0 ML IV SCH (08:49)
[2020-06-18] MEDS: PROLENSA OP SCH ×2 (08:49→22:48)
--- NOTE | 2020-06-18 08:58 | Nephrology Progress Note ---
Date of Service June 18, 2020 Assessment & Plan (1) Acute kidney failure: Last creatinine in June 2018 was 1.12 was admitted with a serum creatinine of 1.6, which has been gradually increasing to peak at 2.9 on 06/14, down to 1.4 today. Feels a bit better; still on 4-5L though 02 needs down trending. Likely secondary to fluid overload -cont IV Lasix 60 mg twice daily. -K has already been supplemented He has had diarrhea and his fluid management becomes even more tricky as his blood pressure has been on the lower side. His albumin is within normal range and would stop this. -avoid IV albumin w/ hypoxia/vol OL -cont strict I/O -cont to hold CCB d/t hypotension but may be able to reintroduce if sbp goes up He will nephrology f/u on discharge. care coordinated w/ DR Mendoza Admission and Anticipated Discharge Date Admission Date: June 13, 2020 Subjective seen on rounds at 1015; feels breathing stable to slightly better; no uncontrolled musculoskeletal pain Review of Systems Review of Systems: All systems reviewed & are unremarkable except as noted in Subjective Physical Exam Constitutional: well developed, well nourished and + morbidly obese; no acute distress Eyes: EOM intact bilaterally ENMT: Ears: no external ear abnormality Nose: no external nose abnormality Mouth: + dry oral mucous membranes Neck: no nuchal rigidity Respiratory: normal respiratory effort Auscultation: + diminished lung sounds Gastrointestinal (Abdomen): Inspection/Auscultation: normal bowel sounds Percussion/Palpation: abdomen soft; abdomen nontender Musculoskeletal: Extremities: strength 5/5 throughout Skin: no rashes, warm and dry Neurologic: cary, fluent speech, no tremor Psychiatric: Orientation: alert, oriented to person and oriented to place Results & Data ([facility]) Vital Signs (Past 12 Hours) Vital Signs Temp Pulse Pulse Resp BP BP Pulse Ox 06/18/20 08:25 36.7 C 90 16 145/66 H 92 06/18/20 07:34 94 H 06/18/20 07:28 86 20 95 06/18/20 04:25 92 H 18 92 06/18/20 04:00 37.0 C 88 18 127/80 95 06/18/20 00:06 90 90 20 96 06/18/20 00:00 93 H 06/17/20 23:15 36.6 C 89 18 129/74 93 06/17/20 21:30 97 H 20 124/72 92 Laboratory Results 06/18/20 07:01 06/18/20 07:01
[2020-06-18] MEDS: DOXYCYCLINE HYCLATE 100 MG CAP PO SCH ×2 (09:06→22:48)
[2020-06-18] MEDS: POLYETHYLENE (MIRALAX) 17 GM PACK PO SCH ×2 (13:57→22:46)
[2020-06-18] MEDS: PIPERACILLIN/TAZOBACTAM 4.5 GM in DEXTROSE 5% 100 ML IV SCH ×2 (13:57→23:19)
[2020-06-18] MEDS: POTASSIUM CHLORIDE CRTAB 20 MEQ TABCR PO SCH (13:57)
--- NOTE | 2020-06-18 18:02 | XRay Report ---
KUB CLINICAL HISTORY: follow up COMPARISON STUDY: CT of the abdomen and pelvis June 13, 2020. KUB June 14, 2020 FINDINGS: Marked dilatation of small large bowel is again noted. The amount of stool within the rectu m has significantly decreased since CT of June 13, 2020. Colonic distention is unchanged. Small bowel dilatation has mildly increased. Sensitivity for detection of free air is diminished on this supine exam but there is no convincing evidence for free air. IMPRESSION: Marked small large bowel dilatation. Slight increase in small bowel dilatation. The find ings could reflect a distal colonic obstruction or ileus. ACT 112: Negative or not required by law. Electronically signed by: Octavio Castanon M.D. 06/18/2020 6:00 PM
[2020-06-18] MEDS ORDERED: OPTIRAY 320 125ml IV ONE (18:43)
--- NOTE | 2020-06-18 19:27 | CT Scan Report ---
CT ANGIOGRAPHY OF THE CHEST, PULMONARY EMBOLUS PROTOCOL CLINICAL HISTORY: Shortness of breath. Evaluate for pulmonary embolus. COMPARISON STUDY: Chest CT June 21, 2018. Chest radiograph June 13, 2020. TECHNIQUE: Following IV administration of 119 mL of Optiray-320, helical axial images of the chest we re obtained utilizing the pulmonary embolus protocol. Maximal intensity projections and sagittal and coronal reformats were viewed on an independent 3D workstation. IV contrast was administered withou t complication. Automated exposure control was utilized for the study. A dose lowering technique wa s utilized adhering to the principles of ALARA. CT DOSE: 854.94 mGy.cm FINDINGS: No pulmonary emboli are identified although the segmental and subsegmental pulmonary arter ies are suboptimally assessed on this examination. There is dilatation of the central pulmonary arter ies. Heart is moderately enlarged. There is no pericardial effusion. No thoracic lymphadenopathy is p resent. There is no thoracic aortic dissection. No pneumothorax or pleural effusion is noted. Extensi ve bilateral lower lobe airspace opacities are present with volume loss. There are additional groundg lass opacities within the lungs. There is mild interlobular septal thickening. Right hepatic lobe les ion represents a cyst. IMPRESSION: 1. No pulmonary emboli identified although segmental and subsegmental pulmonary arteries suboptimally assessed on this exam. 2. Extensive bilateral lower lobe airspace opacities with volume loss which favors atelectasis althou gh pneumonia could appear similar. 3. Additional groundglass opacities within the lungs could reflect an infectious process or pulmonary edema. 4. Dilatation of the central pulmonary arteries which suggests pulmonary arterial hypertension. 5. Moderate cardiomegaly. ACT 112: Negative or not required by law. Electronically signed by: Octavio Castanon M.D. 06/18/2020 7:26 PM
[2020-06-18 19:52] LABS: BUN Creatinine Ratio 47.4 (10-20); Calcium 8.8 mg/dl (8.5-10.1); Creatinine Clr Calc Pharmacy 89.5 ml/min; Est GFR (Non-African American) 66.4; Magnesium 2.2 mg/dl (1.8-2.4); Potassium 3.4 mmol/L (3.5-5.1)
[2020-06-18 19:53] LABS: Phosphorus 2.1 mg/dl (2.5-4.9)
[2020-06-18] MEDS ORDERED: XOPENEX/ATROVENT 1.25mg/0.5MG NEB COMBO NEB PRN (22:26)
[2020-06-18] MEDS ORDERED: IPRATROPIUM BROMIDE NEB SOLN 0.02% 2.5 ML VIAL INH PRN (22:30)
[2020-06-18] MEDS ORDERED: POTASSIUM PHOS 3 MMOL/1 ML INFUSION IV STA (22:42)
[2020-06-18] MEDS: SIMVASTATIN 20 MG TAB PO SCH (22:49)
[2020-06-18] MEDS ORDERED: POTASSIUM PHOSPHATE 21 MMOL in SODIUM CHLORIDE 0.9% 500 ML IV ONE (23:00)
[2020-06-19] MEDS ORDERED: LEVALBUTEROL 1.25MG/0.5ML NEB INH PRN (01:00)
[2020-06-19] MEDS: PIPERACILLIN/TAZOBACTAM 4.5 GM in DEXTROSE 5% 100 ML IV SCH ×3 (06:06→20:14)
[2020-06-19] MEDS: LEVOTHYROXINE SODIUM 175 MCG TABLET PO SCH (06:07)
[2020-06-19 06:39] LABS: Hematocrit (blood only) 40.8 % (42-52); Hemoglobin 13.1 g/dL (14.0-18.0); Mean Corpuscular Hemoglobin 29.7 pg (25-34); Mean Corpuscular Hgb Conc 32.1 g/dL (32-36); Mean Corpuscular Volume 92.5 fL (80-100); Mean Platelet Volume 11.2 fL (7.4-10.4); Platelet Count 153 K/uL (130-400); RDW Coefficient of Variation 15.1 % (11.5-14.5); RDW Standard Deviation 51.5 fL (36.4-46.3); Red Blood Count 4.41 M/uL (4.7-6.1); White Blood Count 10.17 K/uL (4.8-10.8)
[2020-06-19] MEDS ORDERED: D5W AND NSS 1,000 ML IV SCH (06:45)
[2020-06-19 07:11] LABS: Albumin Level 2.8 gm/dl (3.4-5.0); BUN Creatinine Ratio 45.7 (10-20); Creatinine Clr Calc Pharmacy 90.4 ml/min; Est GFR (African American) 81.6; Est GFR (Non-African American) 70.4; Magnesium 2.2 mg/dl (1.8-2.4); Potassium 3.9 mmol/L (3.5-5.1)
[2020-06-19 07:16] LABS: Albumin Globulin Ratio 0.9 (0.9-2); Bilirubin,Total 0.9 mg/dl (0.2-1); Globulin 3.2 gm/dl (2.5-4.0); Phosphorus 3.2 mg/dl (2.5-4.9)
[2020-06-19] MEDS: IPRATROPIUM BROMIDE NEB SOLN 0.02% 2.5 ML VIAL INH SCH ×2 (07:37→19:48)
[2020-06-19] MEDS: LEVALBUTEROL 1.25MG/0.5ML NEB INH SCH ×2 (07:37→19:48)
--- NOTE | 2020-06-19 08:36 | Surgery Progress Note ---
Date of Service June 19, 2020 Assessment & Plan (1) Constipation: Patient here with constipation Since admission he has started having meaningful bowel function and has been on a reg diet yesterday a KUB was obtained for further evaluation and ongoing hypoxia that revealed some dilated small and large bowel; concern for ileus Today on examination abdomen is soft, non tender and he offers no complaints Since he continues to have ongoing bowel function, would be okay to slowly re-initiate diet and see how he fairs Pt seen and examined with Dr. Ware Admission and Anticipated Discharge Date Admission Date: June 13, 2020 Subjective Patient examined at bedside. Says he is feeling well. Denies nausea/vomiting/abdominal pain. Says he is passing flatus and BMs. Physical Exam Physical Exam: awake Gastrointestinal (Abdomen): Inspection/Auscultation: abdomen not distended Percussion/Palpation: abdomen soft; abdomen nontender Results & Data ([facility]) Vital Signs (Past 12 Hours) Vital Signs Temp Pulse Pulse Resp BP Pulse Ox 06/19/20 07:39 77 18 96 06/19/20 07:23 70 06/19/20 07:00 36.2 C L 77 20 128/71 96 06/19/20 04:31 92 06/19/20 03:48 91 H 06/19/20 03:00 36.9 C 89 20 132/76 92 06/18/20 23:00 37.2 C 92 H 20 129/78 95 06/18/20 22:35 95 H 26 H 95 PG Care Time/CCT Total # of Minutes Spent Total Time Spent with Patient: Total time spent is greater than 50% in coordination of care (as documented) at patient's floor/unit and/or counseling patient: Coding Level of Care Code 03878 Subseq Hosp Care Lvl 1 Diagnoses Constipation K59.00
--- NOTE | 2020-06-19 08:51 | XRay Report ---
KUB HISTORY: Small bowel obstruction. Colonic obstruction. COMPARISON: Abdomen and pelvis CT 06/13/2020. KUB 06/18/2020. FINDINGS: Markedly distended large bowel including the sigmoid colon which measures up to 16 cm in di ameter. This has progressed in the interval. There are also dilated loops of small bowel seen through out the abdomen. Large amount well-formed stool seen throughout the colon. No significant gas within the rectum. No renal calculi. No ureteral calculi. No pneumoperitoneum or pneumatosis. IMPRESSION: 1. Markedly distended large and small bowel with the sigmoid colon measuring up to 16 cm in diameter. This has progressed in the interval. The appearance of the sigmoid colon could represent a sigmoid v olvulus. 2. Large amount of well-formed stool seen within the colon. 3. These findings were discussed with Dr. Ware at 8:48 AM on 06/19/2020. ACT 112: Negative or not required by law. Electronically signed by: Tal Painting M.D. 06/19/2020 8:49 AM
[2020-06-19] MEDS ORDERED: SOD PHOSPHATE/SOD BIPHOSPHATE ENEMA 132 ML BTL PR STA (08:55)
[2020-06-19] MEDS ORDERED: SOD PHOSPHATE/SOD BIPHOSPHATE ENEMA 132 ML BTL PR ONE (09:01)
[2020-06-19] MEDS: POT PHOSPHATE MONOBASIC W/ SOD TAB PO SCH ×3 (09:08→15:49)
--- NOTE | 2020-06-19 09:09 | Gastroenterology Progress Note ---
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 Abd soft, nontender, mildly distended. - Pt will have Fleets enema this AM for prep - Will plan for urgent colonic decompression today - Keep NPO - Continue supportive care as per primary team - Further recommendations to follow procedure Thank you for allowing us to participate in the care of this patient. Please call with any acute changes, questions or concerns. Please see addendum below with additional recommendation from my supervising physician. Admission and Anticipated Discharge Date Admission Date: June 13, 2020 Supervising Physician Co-Signing Physician Notes I saw and evaluated the patient. We were asked to see the patient with regard to worsening abdominal distention and x-rays which now seem to indicate that the patient may have an underlying sigmoid volvulus. Colonic decompression has been requested for initial treatment. I did discuss the role of decompression with the patient in the long-term need of surgical intervention with him. We will be happy to provide colonic decompression this morning on an urgent basis in anticipation of evaluation by general surgery to determine if a sigmoid colectomy can be performed at the center. If unable to perform at the center then perhaps the patient would be best served at a center with colorectal surgery available. I have discussed the risks of colonic decompression with the patient to include bleeding, infection, perforation, aspiration, need for follow-up studies. Subjective Patient seen and examined, chart reviewed. GI asked to re-evaluate this pt who was seen previously for large colonic stool burden. He's been having regular BMs with Miralax BID, however had imaging done today showing progressive markedly distended large/small bowel with sigmoid colon measuring up to 16 cm in diameter, concerning for sigmoid volvulus. He has been evaluated by surgical team. We were asked to evaluate for possible colonic decompression. Pt states he is passing small amts of stool and also passing flatus; denies abd pain, n/v, fever, CP, SOB. Review of Systems Review of Systems: All systems reviewed & are unremarkable except as noted in HPI & below Physical Exam Constitutional: WD/WN, vitals as above Respiratory: normal respiratory effort, lungs clear to auscultation Cardiovascular: Rate/Rhythm: regular rate and regular rhythm Gastrointestinal (Abdomen): abd somewhat distended but soft, abd is nontender, bowel sounds normal Psychiatric: A+Ox3, euthymic affect Results & Data ([facility]) Vital Signs (Past 12 Hours) Vital Signs Temp Pulse Pulse Resp BP Pulse Ox 06/19/20 07:39 77 18 96 06/19/20 07:23 70 06/19/20 07:00 36.2 C L 77 20 128/71 96 06/19/20 04:31 92 06/19/20 03:48 91 H 06/19/20 03:00 36.9 C 89 20 132/76 92 06/18/20 23:00 37.2 C 92 H 20 129/78 95 06/18/20 22:35 95 H 26 H 95 Laboratory Results 06/19/20 06/19/20 06/19/20 Range/Units 07:17 06:08 06:08 WBC 10.17 (4.8-10.8) K/uL RBC 4.41 L (4.7-6.1) M/uL Hgb 13.1 L (14.0-18.0) g/dL Hct 40.8 L (42-52) % MCV 92.5 (80-100) fL MCH 29.7 (25-34) pg MCHC 32.1 (32-36) g/dL RDW Std Deviation 51.5 H (36.4-46.3) fL RDW Coeff of Maximilian 15.1 H (11.5-14.5) % Plt Count 153 (130-400) K/uL MPV 11.2 H (7.4-10.4) fL Sodium (136-145) mmol/L Potassium (3.5-5.1) mmol/L Chloride (98-107) mmol/L Carbon Dioxide (21-32) mmol/L Anion Gap (3-11) BUN (7-18) mg/dl Creatinine (0.6-1.4) mg/dl Est Cr Clr Drug Dosing ml/min Est GFR ( Amer) Est GFR (Non-Af Amer) BUN/Creatinine Ratio (10-20) Glucose (70-99) mg/dl Lactate 1.4 (0.4-2.0) mmol/L Calcium (8.5-10.1) mg/dl Phosphorus (2.5-4.9) mg/dl Magnesium (1.8-2.4) mg/dl Total Bilirubin (0.2-1) mg/dl AST (15-37) U/L ALT (12-78) U/L Alkaline Phosphatase (45-117) U/L Total Protein (6.4-8.2) gm/dl Albumin (3.4-5.0) gm/dl Globulin (2.5-4.0) gm/dl Albumin/Globulin Ratio (0.9-2) Procalcitonin 3.65 H (0-0.5) ng/ml 06/19/20 06/18/20 Range/Units 06:08 19:12 WBC (4.8-10.8) K/uL RBC (4.7-6.1) M/uL Hgb (14.0-18.0) g/dL Hct (42-52) % MCV (80-100) fL MCH (25-34) pg MCHC (32-36) g/dL RDW Std Deviation (36.4-46.3) fL RDW Coeff of Maximilian (11.5-14.5) % Plt Count (130-400) K/uL MPV (7.4-10.4) fL Sodium 146 H 142 (136-145) mmol/L Potassium 3.9 3.4 L (3.5-5.1) mmol/L Chloride 104 101 (98-107) mmol/L Carbon Dioxide 40 H 39 H (21-32) mmol/L Anion Gap 2.0 L 2.0 L (3-11) BUN 46 H 50 H (7-18) mg/dl Creatinine 1.01 1.06 (0.6-1.4) mg/dl Est Cr Clr Drug Dosing 90.4 89.5 ml/min Est GFR ( Amer) 81.6 77.0 Est GFR (Non-Af Amer) 70.4 66.4 BUN/Creatinine Ratio 45.7 H 47.4 H (10-20) Glucose 113 H 143 H (70-99) mg/dl Lactate (0.4-2.0) mmol/L Calcium 9.0 8.8 (8.5-10.1) mg/dl Phosphorus 3.2 D 2.1 L (2.5-4.9) mg/dl Magnesium 2.2 2.2 (1.8-2.4) mg/dl Total Bilirubin 0.9 (0.2-1) mg/dl AST 66 H (15-37) U/L ALT 72 (12-78) U/L Alkaline Phosphatase 135 H (45-117) U/L Total Protein 6.0 L (6.4-8.2) gm/dl Albumin 2.8 L (3.4-5.0) gm/dl Globulin 3.2 (2.5-4.0) gm/dl Albumin/Globulin Ratio 0.9 (0.9-2) Procalcitonin (0-0.5) ng/ml Diagnostic Findings KUB 06/19/20 1. Markedly distended large and small bowel with the sigmoid colon measuring up to 16 cm in diameter. This has progressed in the interval. The appearance of the sigmoid colon could represent a sigmoid volvulus. 2. Large amount of well-formed stool seen within the colon.
[2020-06-19] MEDS: POLYETHYLENE (MIRALAX) 17 GM PACK PO SCH (09:14)
[2020-06-19] MEDS: HEPARIN SOD 5,000 UNIT/0.5 ML VIAL SQ SCH ×2 (09:30→20:13)
--- NOTE | 2020-06-19 10:04 | Anesthesiology Consultation ---
Date of Service June 19, 2020 Assessment & Plan ASA ASA3 Proposed Anesthesia Anesthesia Type: MAC Risk / Benefits Reviewed With: PT / POA / Parent / Guardian, Accepts Plan and Informed Consent Obtained History Surgery Operation Date: 06/19/20 16:30 Proposed Procedures p Colonoscopy Dr Krish Rutherford, Height/Weight Height: 6 ft 6 in Weight: 132.3 kg Allergies Allergy/AdvReac Type Severity Reaction Status Date / Time No Known Allergies Allergy Verified 06/19/20 10:12 Medications Home Medications Medication Instructions Recorded Confirmed Last Taken amlodipine 5 mg tablet 5 mg PO QAM 11/20/18 06/13/20 06/13/20 aspirin 81 mg tablet,delayed 81 mg PO QAM 11/20/18 06/13/20 06/12/20 release simvastatin 20 mg tablet 20 mg PO HS tab 11/20/18 06/13/20 06/13/20 bumetanide 1 mg tablet 1.5 mg PO BID tab 01/08/19 06/13/20 06/13/20 cholecalciferol (vitamin D3) 25 1,000 units PO QAM 01/08/19 06/13/20 06/13/20 mcg (1,000 unit) capsule colchicine 0.6 mg capsule 0.6 mg PO QAM 01/08/19 06/13/20 06/13/20 CPAP Machine #1 ea 02/07/19 06/13/20 Unknown Oxygen Home #1 ea 05/13/19 06/13/20 Unknown calcium carbonate [Tums] 200 mg PO BID PRN 05/16/20 06/13/20 06/13/20 bromfenac [Prolensa] 1 drp OPHTHALMIC (EYE) DAILY 06/13/20 06/13/20 06/13/20 difluprednate [Durezol] See Rx Instructions .ROUTE .COMPLEX 06/13/20 06/13/20 06/13/20 gatifloxacin See Rx Instructions .ROUTE .COMPLEX 06/13/20 06/13/20 Unknown levothyroxine 175 mcg PO DAILYBB 06/13/20 06/13/20 06/13/20 Active Medications Generic Name Dose Route Start Last Admin Trade Name Freq PRN Reason Stop Dose Admin Amlodipine Besylate 5 mg 06/14/20 09:00 06/14/20 11:20 Amlodipine Besylate 5 Mg Tab PO 07/14/20 08:59 5 mg QAM YOSSI Administration Aspirin 81 mg 06/14/20 09:00 06/18/20 08:48 Aspirin 81 Mg Ectab PO 07/14/20 08:59 81 mg QAM YOSSI Administration Calcium Carbonate 500 mg 06/13/20 18:20 06/15/20 18:12 Calcium Carbonate 500 Mg Chewable Tab PO 07/13/20 18:19 500 mg BID PRN Administration gerd Doxycycline Hyclate 100 mg 06/18/20 09:00 06/18/20 22:48 Doxycycline Hyclate 100 Mg Cap PO 06/25/20 08:59 100 mg BID YOSSI Administration Heparin Sodium (Porcine) 5,000 units 06/13/20 21:00 06/18/20 22:47 Heparin Sod 5,000 Unit/0.5 Ml Vial SQ 07/13/20 20:59 5,000 units Q12 YOSSI Administration Furosemide 60 mg/ Syringe 6 mls @ 4 mls/min 06/15/20 11:15 06/18/20 08:49 IV 07/15/20 11:14 4 mls/min BID17 YOSSI Administration Piperacillin Sod/Tazobactam 120 mls @ 30 mls/hr 06/18/20 14:00 06/19/20 06:06 Sod 4.5 gm/ Dextrose IV 06/25/20 13:59 30 mls/hr Q8H YOSSI Administration Protocol Ipratropium [place] 0.5 mg 06/18/20 19:00 06/19/20 07:37 Ipratropium [place] Neb Soln 0.02% 2.5 Ml Vial INH 07/18/20 18:59 0.5 mg BIDR YOSSI Administration Levalbuterol HCl 1.25 mg 06/18/20 19:00 06/19/20 07:37 Levalbuterol 1.25mg/0.5ml Neb INH 07/18/20 18:59 1.25 mg BIDR YOSSI Administration Levothyroxine Sodium 175 mcg 06/14/20 06:30 06/19/20 06:07 Levothyroxine Sodium 175 Mcg Tablet PO 07/14/20 06:29 175 mcg DAILYBB YOSSI Administration Prolensa~Non- 1 ea 06/14/20 09:00 06/18/20 22:48 Formulary Patient's OP 07/14/20 08:59 1 drops Own Med BID YOSSI Administration Durezol~Non- 1 ea 06/14/20 09:00 06/18/20 22:48 Formulary Patient's OP 07/14/20 08:59 1 drops Own Med BID YOSSI Administration Polyethylene Glycol 17 gm 06/18/20 12:15 06/19/20 09:14 Polyethylene (Miralax) 17 Gm Pack PO 07/18/20 12:14 Not Given BID YOSSI Potassium Chloride 40 meq 06/18/20 14:00 06/18/20 13:57 Potassium Chloride Crtab 20 Meq Tabcr PO 07/18/20 13:59 40 meq QAM YOSSI Administration Potassium Phosphate 1 tab 06/19/20 09:00 06/19/20 09:08 Pot Phosphate Monobasic W/ Sod Tab PO 07/19/20 08:59 Not Given QID YOSSI Simvastatin 20 mg 06/13/20 21:00 06/18/20 22:49 Simvastatin 20 Mg Tab PO 07/13/20 20:59 20 mg HS YOSSI Administration Vitamin D 1,000 units 06/14/20 09:00 06/18/20 08:48 Cholecalciferol 1,000 Units 25 Mcg Tab PO 07/14/20 08:59 1,000 units QAM YOSSI Administration NPO Date Last Intake of Fluids: 06/19/20 Time Last Intake of Fluids: 00:00 Date Last Intake of Solids: 06/19/20 Time Last Intake of Solids: 00:00 Past Medical History Medical History Dyslipidemia GERD (gastroesophageal reflux disease) HTN (hypertension) Hx of gout Hypothyroidism Neuropathy Obesity On home oxygen therapy 4 LPM qHS Restrictive lung disease Sleep apnea BiPAP + O2 at 4 LPM Venous insufficiency Exercise / Class Metabolic Activity IV < 2 Limit ADL/Bedbound Past Family History Family History Father Hypertension Mother Lung cancer Aunt Diabetes Aunt Diabetes Other No family history of adverse response to anesthesia No significant family history Past Surgical History Surgical History History of cataract surgery RT. 06/03/20. [facility]. 2mg versed, 50mcg fentanyl. no issues reported. History of colonoscopy Past Anesthesia History No Hx of Anesthesia Complications and No Family Hx of Anesthesia Complications History of PONV No Hx of PONV and No Hx of Motion Sickness Social History Smoking Status: Former smoker Smoking End Date: 1961 Hx Alcohol Use: No Hx Substance Use: No Review of Systems denies fever/cough/ colds/ chest pain/ SOB/ pt on bipap with O2 at night Physical Exam Vital Signs Last Vital Signs Temp 36.2 C L 06/19/20 07:00 Pulse 77 06/19/20 07:39 Resp 18 06/19/20 07:39 BP 128/71 06/19/20 07:00 Pulse Ox 96 06/19/20 07:39 ENMT Mouth: + edentulous; no TMJ abnormality and no dentition abnormality Thyromental Distance: > or= 3.5 Finger Breadths Mallampati Class: II Neck neck extension not limited Respiratory normal respiratory effort; no respiratory distress Auscultation: lungs clear to auscultation bilaterally Cardiovascular Rate/Rhythm: regular rate and regular rhythm Neurologic moves all extremities Psychiatric Orientation: alert and oriented x 3 Testing Laboratory Results 06/19/20 06:08 06/19/20 06:08 PT 11.4 Seconds (9.0-12.0) 06/13/20 13:37 INR 1.1 (0.9-1.1) 06/13/20 13:37 APTT 22.5 Seconds (21.0-31.0) 06/13/20 13:37 Urine Color Dark Yellow 06/15/20 18:55 Urine Appearance Cloudy (Clear) A 06/15/20 18:55 Urine pH 5.0 (4.5-7.5) 06/15/20 18:55 Ur Specific [place] 1.018 (1.000-1.030) 06/15/20 18:55 Urine Protein 1+ (Negative) H 06/15/20 18:55 Urine Glucose (UA) Negative (Negative) 06/15/20 18:55 Urine Ketones Trace (Negative) H 06/15/20 18:55 Urine Nitrite Negative (Negative) 06/15/20 18:55 Ur Leukocyte Esterase Trace (Negative) H 06/15/20 18:55 Urine WBC (Auto) 1-5 /hpf (0-5) 06/15/20 18:55 Urine RBC (Auto) >30 /hpf (0-4) H 06/15/20 18:55 U Hyaline Cast (Auto) 1-5 /lpf (0-5) 06/15/20 18:55 U Epithel Cells (Auto) 10-20 /lpf (0-5) H 06/15/20 18:55 Urine Bacteria (Auto) 1+ (Negative) H 06/15/20 18:55 06/13/20 22:28 Aerobic Blood Culture - Final Blood No growth in Aerobic bottle after 5 days. Anaerobic Blood Culture - Final No growth in Anaerobic bottle after 5 days. 06/13/20 22:41 Aerobic Blood Culture - Final Blood No growth in Aerobic bottle after 5 days. Anaerobic Blood Culture - Final No growth in Anaerobic bottle after 5 days. 06/13/20 22:11 Urine Culture - Final Urine,Clean Catch More than three types of organisms present, all moderate counts mixed probable skin pravin. No further identifications or sensitivities to follow.
[2020-06-19] MEDS ORDERED: MINERAL OIL 30 ML UDC ONE (10:06)
[2020-06-19] MEDS ORDERED: ATROPINE SULFATE 0.1 MG/ML 10ML SYR IV PRN (10:15)
[2020-06-19] MEDS ORDERED: ePHEDrine sulfate 50 MG/ML AMP IV PRN (10:15)
[2020-06-19] MEDS ORDERED: LIDOCAINE HCL 2% 2 ML VIAL/AMP(20MG/ML) INFIL ONE (10:20)
[2020-06-19] MEDS ORDERED: PROPOFOL IV EMULSION 10 MG/ML 20 ML VIAL IV ONE (10:20)
--- NOTE | 2020-06-19 10:26 | Hospitalist Progress Note ---
Date of Service June 19, 2020 Assessment & Plan (1) Constipation: Present on admission with abdominal discomfort and distended CT abd/pelvis showed marked colonic and moderate small bowel dilatation due to to a large amount of stool within the distal sigmoid colon and rectum which results in a functional colonic obstruction. Repeat KUB showed no change in the distended and stool-filled large and small bowel. GI on board smog enemas or soap kurtis enema bowel prep was given Surgery on board no indication for any surgical intervention Pt has been having numerous bowel movement Diet advanced as tolerated GI recommended MiraLAX 17 g 1-2 times daily Will keep K > 4 and Mg > 2 to facilitate bowel motility GI recommended outpatient colonoscopy, pt would think about it before scheduling it Continue monitor closely 06/18 patient still requiring supplemental oxygen today, which is different from his baseline, imaging obtained. Also procalcitonin elevated at 7. KUB was obtained as well, as it shows significant dilatation of bowels. NG tube tried to be placed overnight several times, however unsuccessful. Patient then declined further attempts. Sigmoid volvulus 06/19 KUB was repeated this morning shows progressive markedly distended large/small bowel with sigmoid colon measuring up to 16 cm in diameter, concerning for sigmoid volvulus. Surgery and GI contacted. Surgery recommends GI for colonic decompression. Plan for urgent colonoscopy/ colonic decompression by Dr. Rutherford. (2) Acute kidney failure: Creatinine on admission 1.6, then worsening to 2.9, now down to 1.1 Renal u/s showed No definite hydronephrosis. study was difficult Creatinine normalized Nephrology on board recommended to continue Lasix 60 mg IV BID Avoid nephrotoxic agents Continue monitor BMP Follow up with nephrology on discharge (3) High serum lactate: Possible related to respiratory hypoxia vs sepsis vs LIZZ Pt has been afebrile Doubt sepsis CT abd/pelvis showed no free air. Marked colonic and moderate small bowel dilatation due to to a large amount of stool within the distal sigmoid colon and rectum which results in a functional colonic obstruction. IVF was discontinued due to mild pulmonary edema and worsening hypoxia Blood cx no growth Lactic acid normalized at 1.3 Procalcitonin elevated at 7 (06/18) Continue zosyn, add doxy obtain blood cultx CT PE ordered for further eval - no PE, poss. However extensive bilateral lower lobe airspace opacities c/w atelectasis, poss. pna. Additional groundglass opacities within the lungs could reflect an infectious process or pulmonary edema. Dilatation of the central pulmonary arteries suggest pulmonary arterial hypertension. KUB also obtained, show significant dilatation of the bowel, now concern for sigmoid volvulus as above. (4) Diastolic CHF, chronic: Last echocardiogram was completed on 06/22/2018, showing EF of 65 to 70%, concentric LVH, grade 1 diastolic dysfunction CXR showed Mild interstitial pulmonary edema, unchanged. IVF was discontinued due to worsening SOB Continue to hold Bumex Continue Lasix IV 60mg BID as per nephrology Continue oxygen supplement (5) Elevated d-dimer: D-Dimer 1070 PT had elevated d-dimer in the past Doppler of LE extremities showed no DVT unable to get a CTA chest to r/o PE due to elevate creatinine on admission Might consider to get a V/Q scan, doubt that will help since pt has hx COPD with interstitial changes Cr normalized,obtained CT PE (06/18) - negative for PE (6) HTN (hypertension): BP stable Continue to hold amlodipine (7) Dyslipidemia: Continue statin therapy, had held this several weeks ago for a trial to see if this was causing muscle weakness/pain, but has restarted it at this point (8) COPD (chronic obstructive pulmonary disease): Patient wears BiPAP at night with 4L O2, Continue BIpap for now (9) Obesity hypoventilation syndrome: - Hx of such (10) Chronic respiratory failure with hypercapnia: (11) Hypoxia: CXR showed progressive perihilar interstitial/vascular thickening suggestive of mild pulmonary edema. ABG showed pH 7.32, PCO2 65, P02 74 HCO3 33 Patient wears BiPAP at night with 4L O2 at baseline Worsening hypoxia Unable to get a CTA chest to r/o PE Has been off bipap, now on nasal canula Consider to get a CT chest without contrast if no improvement Will continue wean off oxygen Clinically improved Cr now normalized, obtained CT PE (06/18) - no PE, poss. However extensive bilateral lower lobe airspace opacities c/w atelectasis, poss. pna. Additional groundglass opacities within the lungs could reflect an infectious process or pulmonary edema. Dilatation of the central pulmonary arteries suggest pulmonary arterial hypertension. (12) Obesity: -BMI of 37.6 (13) Hypothyroidism: Cont levothyroxine 175 mcg daily (14) Gout: -Cont colchicine 0.6 mg daily (15) Sleep apnea: Continue bipap as above (16) DVT prophylaxis: scds/heparin subq CODE: DNR/DNI Disposition: transferred to medical Admission and Anticipated Discharge Date Admission Date: June 13, 2020 Subjective Pt was seen and examined for follow up of hypoxia and abdominal discomfort Lying in bed in no distress However appears very fatigued He continues to require suppl. O2 Denies any chest pain, palpitation, dizziness and fever Procalcitonin elevated, therefore cont. zosyn, add doxy Cr normalized, discussed w/ nephro, ok to do CT PE On imaging, significant bowel dilatation noted, overnight NG tube tried to be placed several times however unsuccessful. Patient then declined. KUB was repeated this morning and shows progressive markedly distended large/small bowel with sigmoid colon measuring up to 16 cm in diameter, concerning for sigmoid volvulus. Case discussed with surgery, and GI. Surgery recommends colonic decompression. Review of Systems Review of Systems: All systems reviewed & are unremarkable except as noted in HPI & below Constitutional: + fatigue and + weakness (generalized); no fever and no chills Respiratory: + dyspnea (improved) Cardiovascular: no chest pain and no palpitations Gastrointestinal: no abdominal pain and no vomiting Physical Exam Physical Exam: General- Elderly obese frail male laying in bed in no acute distress, on suppl. O2 2-4L Head- normocephalic, atraumatic Eyes- PERRL, EOMI, ENT- oropharynx clear Neck- supple, no JVD Lungs- decrease BS, Difficult lung exam as patient is very weak to move Heart- regular rhythm; no murmur Abdomen- nontender, obese, soft, + distended, sluggish bowel sounds Extremities- no calf tenderness, +edema Neuro- alert, oriented x 3; PERRL, EOMI; no facial palsy; no dysarthria, +generalized weakness Skin- warm & dry Results & Data Results & Data ([facility]) Vital Signs (Past 12 Hours) Vital Signs Temp Pulse Pulse Resp BP BP Pulse Ox 06/19/20 10:04 36.4 C L 82 18 141/70 H 94 06/19/20 07:39 77 18 96 06/19/20 07:23 70 06/19/20 07:00 36.2 C L 77 20 128/71 96 06/19/20 04:31 92 06/19/20 03:48 91 H 06/19/20 03:00 36.9 C 89 20 132/76 92 06/18/20 23:00 37.2 C 92 H 20 129/78 95 06/18/20 22:35 95 H 26 H 95 Laboratory Results 06/19/20 06/19/20 06/19/20 Range/Units 07:17 06:08 06:08 WBC 10.17 (4.8-10.8) K/uL RBC 4.41 L (4.7-6.1) M/uL Hgb 13.1 L (14.0-18.0) g/dL Hct 40.8 L (42-52) % MCV 92.5 (80-100) fL MCH 29.7 (25-34) pg MCHC 32.1 (32-36) g/dL RDW Std Deviation 51.5 H (36.4-46.3) fL RDW Coeff of Maximilian 15.1 H (11.5-14.5) % Plt Count 153 (130-400) K/uL MPV 11.2 H (7.4-10.4) fL Sodium (136-145) mmol/L Potassium (3.5-5.1) mmol/L Chloride (98-107) mmol/L Carbon Dioxide (21-32) mmol/L Anion Gap (3-11) BUN (7-18) mg/dl Creatinine (0.6-1.4) mg/dl Est Cr Clr Drug Dosing ml/min Est GFR ( Amer) Est GFR (Non-Af Amer) BUN/Creatinine Ratio (10-20) Glucose (70-99) mg/dl Lactate 1.4 (0.4-2.0) mmol/L Calcium (8.5-10.1) mg/dl Phosphorus (2.5-4.9) mg/dl Magnesium (1.8-2.4) mg/dl Total Bilirubin (0.2-1) mg/dl AST (15-37) U/L ALT (12-78) U/L Alkaline Phosphatase (45-117) U/L Total Protein (6.4-8.2) gm/dl Albumin (3.4-5.0) gm/dl Globulin (2.5-4.0) gm/dl Albumin/Globulin Ratio (0.9-2) Procalcitonin 3.65 H (0-0.5) ng/ml 06/19/20 06/18/20 Range/Units 06:08 19:12 WBC (4.8-10.8) K/uL RBC (4.7-6.1) M/uL Hgb (14.0-18.0) g/dL Hct (42-52) % MCV (80-100) fL MCH (25-34) pg MCHC (32-36) g/dL RDW Std Deviation (36.4-46.3) fL RDW Coeff of Maximilian (11.5-14.5) % Plt Count (130-400) K/uL MPV (7.4-10.4) fL Sodium 146 H 142 (136-145) mmol/L Potassium 3.9 3.4 L (3.5-5.1) mmol/L Chloride 104 101 (98-107) mmol/L Carbon Dioxide 40 H 39 H (21-32) mmol/L Anion Gap 2.0 L 2.0 L (3-11) BUN 46 H 50 H (7-18) mg/dl Creatinine 1.01 1.06 (0.6-1.4) mg/dl Est Cr Clr Drug Dosing 90.4 89.5 ml/min Est GFR ( Amer) 81.6 77.0 Est GFR (Non-Af Amer) 70.4 66.4 BUN/Creatinine Ratio 45.7 H 47.4 H (10-20) Glucose 113 H 143 H (70-99) mg/dl Lactate (0.4-2.0) mmol/L Calcium 9.0 8.8 (8.5-10.1) mg/dl Phosphorus 3.2 D 2.1 L (2.5-4.9) mg/dl Magnesium 2.2 2.2 (1.8-2.4) mg/dl Total Bilirubin 0.9 (0.2-1) mg/dl AST 66 H (15-37) U/L ALT 72 (12-78) U/L Alkaline Phosphatase 135 H (45-117) U/L Total Protein 6.0 L (6.4-8.2) gm/dl Albumin 2.8 L (3.4-5.0) gm/dl Globulin 3.2 (2.5-4.0) gm/dl Albumin/Globulin Ratio 0.9 (0.9-2) Procalcitonin (0-0.5) ng/ml Medications Administered Current Inpatient Medications Acetaminophen (Acetaminophen 325 Mg Tab) 650 mg PO Q4H PRN PRN Reason: Moderate Pain Stop: 07/13/20 18:19 Amlodipine Besylate (Amlodipine Besylate 5 Mg Tab) 5 mg PO QAM [facility] Stop: 07/14/20 08:59 Last Admin: 06/14/20 11:20 Dose: 5 mg Documented by: Aspirin (Aspirin 81 Mg Ectab) 81 mg PO QAM [facility] Stop: 07/14/20 08:59 Last Admin: 06/18/20 08:48 Dose: 81 mg Documented by: Atropine Sulfate (Atropine Sulfate 0.1 Mg/Ml 10ml Syr) 0.5 mg IV Q1M PRN PRN Reason: PACU Use-HR<40 &/or Bradycardi Stop: 06/19/20 18:15 Calcium Carbonate (Calcium Carbonate 500 Mg Chewable Tab) 500 mg PO BID PRN PRN Reason: gerd Stop: 07/13/20 18:19 Last Admin: 06/15/20 18:12 Dose: 500 mg Documented by: Doxycycline Hyclate (Doxycycline Hyclate 100 Mg Cap) 100 mg PO BID [facility] Stop: 06/25/20 08:59 Last Admin: 06/18/20 22:48 Dose: 100 mg Documented by: Ephedrine Sulfate (Ephedrine Sulfate 50 Mg/Ml Amp) 5 mg IV Q5M PRN PRN Reason: PACU Use Only-SBP<90 mmHg Stop: 06/19/20 18:15 Guaifenesin (Guaifenesin 600 Mg Tabcr) 600 mg PO Q12 [facility] Stop: 07/19/20 08:59 Heparin Sodium (Porcine) (Heparin Sod 5,000 Unit/0.5 Ml Vial) 5,000 units SQ Q12 [facility] Stop: 07/13/20 20:59 Last Admin: 06/18/20 22:47 Dose: 5,000 units Documented by: Furosemide 60 mg/ Syringe 6 mls @ 4 mls/min IV BID17 [facility] Stop: 07/15/20 11:14 Last Admin: 06/18/20 08:49 Dose: 4 mls/min Documented by: Piperacillin Sod/Tazobactam (Sod 4.5 gm/ Dextrose) 120 mls @ 30 mls/hr IV Q8H [facility]; Protocol Stop: 06/25/20 13:59 Last Admin: 06/19/20 06:06 Dose: 30 mls/hr Documented by: Ipratropium Gladstone (Ipratropium Gladstone Neb Soln 0.02% 2.5 Ml Vial) 0.5 mg INH BIDR [facility] Stop: 07/18/20 18:59 Last Admin: 06/19/20 07:37 Dose: 0.5 mg Documented by: Ipratropium Gladstone (Ipratropium [place] Neb Soln 0.02% 2.5 Ml Vial) 0.5 mg INH Q6R PRN PRN Reason: Shortness Of Breath Or Wheezing Stop: 07/18/20 22:29 Levalbuterol HCl (Levalbuterol 1.25mg/0.5ml Neb) 1.25 mg INH BIDR [facility] Stop: 07/18/20 18:59 Last Admin: 06/19/20 07:37 Dose: 1.25 mg Documented by: Levalbuterol HCl (Levalbuterol 1.25mg/0.5ml Neb) 1.25 mg INH Q6R PRN PRN Reason: Shortness Of Breath Or Wheezing Stop: 07/19/20 00:59 Levothyroxine Sodium (Levothyroxine Sodium 175 Mcg Tablet) 175 mcg PO DAILYBB [facility] Stop: 07/14/20 06:29 Last Admin: 06/19/20 06:07 Dose: 175 mcg Documented by: Menthol (Cough Drop (Sugar Free) Charla 24 Charla/1 Box) 1 charla BUCCAL NOW PRN PRN Reason: Sore Throat Stop: 07/17/20 22:31 Miscellaneous Information (Piperacill/Tazobac Consult Active) 1 ea N/A UD PRN PRN Reason: Consult Stop: 07/18/20 08:37 Prolensa~Non- Formulary Patient's Own Med 1 ea OP BID [facility] Stop: 07/14/20 08:59 Last Admin: 06/18/20 22:48 Dose: 1 drops Documented by: Durezol~Non- Formulary Patient's Own Med 1 ea OP BID [facility] Stop: 07/14/20 08:59 Last Admin: 06/18/20 22:48 Dose: 1 drops Documented by: Polyethylene Glycol (Polyethylene (Miralax) 17 Gm Pack) 17 gm PO BID [facility] Stop: 07/18/20 12:14 Last Admin: 06/19/20 09:14 Dose: Not Given Documented by: Potassium Chloride (Potassium Chloride Crtab 20 Meq Tabcr) 40 meq PO QAM [facility] Stop: 07/18/20 13:59 Last Admin: 06/18/20 13:57 Dose: 40 meq Documented by: Potassium Phosphate (Pot Phosphate Monobasic W/ Sod Tab) 1 tab PO QID [facility] Stop: 07/19/20 08:59 Last Admin: 06/19/20 09:08 Dose: Not Given Documented by: Simvastatin (Simvastatin 20 Mg Tab) 20 mg PO HS [facility] Stop: 07/13/20 20:59 Last Admin: 06/18/20 22:49 Dose: 20 mg Documented by: Vitamin D (Cholecalciferol 1,000 Units 25 Mcg Tab) 1,000 units PO QAM [facility] Stop: 07/14/20 08:59 Last Admin: 06/18/20 08:48 Dose: 1,000 units Documented by:
[2020-06-19] MEDS ORDERED: KETAMINE 50 MG/5 ML SYRINGE ONE (10:34)
--- NOTE | 2020-06-19 11:01 | Communication Note ---
Date of Service: June 19, 2020 The patient underwent a colonic decompression with rectal tube placement this morning. Would recommend a KUB and beginning use of Colyte 100 mL through the rectal tube every 1-2 hours. If the patient is not a candidate for surgical intervention at this center then perhaps he would be best served with a referral to a tertiary center. Would recommend a discussion with general surgery to determine what the long-term plan for this patient will be.
--- NOTE | 2020-06-19 11:10 | GI REPORT ---
Patient Name: Lorenzo Jackson Procedure Date: 06/19/2020 10:20 AM Date of : 1940 Admit Type: Inpatient Age: 79 Gender: Male Attending MD: Gerri Rutherford DO Procedure: Colonoscopy Providers: Gerri Rutherford DO Referring MD: Filiberto Mendoza Md Indications: Abnormal abdominal x-ray of the GI tract, Suspected volvulus Medicines: Monitored Anesthesia Care Complications: No immediate complications. Estimated blood loss: Minimal. Estimated Blood Loss: Estimated blood loss was minimal. Procedure: Pre-Anesthesia Assessment: - Prior to the procedure, a History and Physical was performed, and patient medications, allergies and sensitivities were reviewed. The patient's tolerance of previous anesthesia was reviewed. - The risks and benefits of the procedure and the sedation options and risks were discussed with the patient. All questions were answered and informed consent was obtained. - Patient identification and proposed procedure were verified prior to the procedure by the physician, the nurse and the refractory worker. The procedure was verified in the procedure room. - Pre-procedure physical examination revealed no contraindications to sedation. - ASA Grade Assessment: III - A patient with severe systemic disease. - After reviewing the risks and benefits, the patient was deemed in satisfactory condition to undergo the procedure. - The anesthesia plan was to use monitored anesthesia care (MAC). - Immediately prior to administration of medications, the patient was re-assessed for adequacy to receive sedatives. - The heart rate, respiratory rate, oxygen saturations, blood pressure, adequacy of pulmonary ventilation, and response to care were monitored throughout the procedure. - The physical status of the patient was re-assessed after the procedure. After I obtained informed consent, the scope was passed under direct vision. Throughout the procedure, the patient's blood pressure, pulse, and oxygen saturations were monitored continuously. The scope was introduced through the anus and advanced to the transverse colon for evaluation. This was the intended extent. The colonoscopy was somewhat difficult due to poor bowel prep, a redundant colon, significant looping and the patient's body habitus. Successful completion of the procedure was aided by lavage. The patient tolerated the procedure well. The quality of the bowel preparation was poor. Findings: The perianal and digital rectal examinations were normal. Pertinent negatives include normal sphincter tone. A large amount of stool was found in the sigmoid colon, in the descending colon and in the transverse colon, making visualization difficult. Decompression of the volvulus was attempted, and partial decompression was achieved. Following the maneuver, a tube was placed to maintain the decompression into the transverse colon (under direct visualization with the colonoscope). The lumen of the colon (entire examined portion) was significantly dilated. Impression: - Preparation of the colon was poor. - Stool in the sigmoid colon, in the descending colon and in the transverse colon. - Dilated in the entire examined colon. Decompression tube placed. Recommendation: - Return patient to [facility] for ongoing care. - Colyte 100 ml via retal tube every 2 hours - KUB ordered - Consider surgical intervention for the suspected volvulus. Gerri Rutherford D.O. Gerri Rutherford, DO 06/19/2020 11:10:20 AM This report has been signed electronically. Note Initiated On: 06/19/2020 10:20 AM Number of Addenda: 0 I attest to the content of the Intraoperative Record and orders documented therein, exceptions below {[id number]}
--- NOTE | 2020-06-19 11:36 | Anesthesiology Progress Note ---
Date of Service June 19, 2020 Anesthesia Post Procedure Vital Signs Vital Signs: Temp Pulse Pulse Resp BP BP Pulse Ox 06/19/20 11:29 81 22 131/69 92 06/19/20 11:14 83 20 128/67 94 06/19/20 10:04 36.4 C L 82 18 141/70 H 94 06/19/20 07:39 77 18 96 06/19/20 07:23 70 06/19/20 07:00 36.2 C L 77 20 128/71 96 06/19/20 04:31 92 06/19/20 03:48 91 H 06/19/20 03:00 36.9 C 89 20 132/76 92 06/18/20 23:00 37.2 C 92 H 20 129/78 95 06/18/20 22:35 95 H 26 H 95 06/18/20 20:06 94 H 18 93 06/18/20 19:00 36.3 C L 98 H 20 125/76 95 06/18/20 18:21 95 06/18/20 15:55 36.7 C 83 16 111/70 90 06/18/20 15:37 89 Transfer of Care Handoff Completed per policy Notes Mental Status: alert / awake / arousable and participated in evaluation Patient Amnestic to Procedure: Yes Nausea / Vomiting: adequately controlled Pain: adequately controlled Airway Patency, RR, SpO2: stable & adequate BP & HR: stable & adequate Hydration State: stable & adequate Anesthetic Complications: no major complications apparent and Pt Satisfied with anesthetic care
--- NOTE | 2020-06-19 12:29 | XRay Report ---
KUB HISTORY: Recent rectal tube placement status post decompression COMPARISON: AV 06/19/2020. FINDINGS: Interval placement of a rectal tube with the tip terminating in the expected location of th e redundant sigmoid colon within the left lower quadrant. The sigmoid colon is completely decompresse d. The transverse colon and descending colon are now normal in caliber. Dilated gas-filled cecum and small bowel have also slightly improved. No renal calculi. No ureteral calculi. No pneumoperitoneum or pneumatosis. IMPRESSION: 1. Status post placement of a rectal tube which terminates in the left lower quadrant likely within t he redundant sigmoid colon. The sigmoid colon is now completely decompressed. 2. Interval improvement in the dilated cecum and small bowel. ACT 112: Negative or not required by law. Electronically signed by: Tal Painting M.D. 06/19/2020 12:28 PM
[2020-06-19] MEDS: ASPIRIN 81 MG ECTAB PO SCH (13:11)
[2020-06-19] MEDS: DOXYCYCLINE HYCLATE 100 MG CAP PO SCH (13:12)
[2020-06-19] MEDS: CHOLECALCIFEROL 1,000 UNITS 25 MCG TAB PO SCH (13:12)
[2020-06-19] MEDS: POTASSIUM CHLORIDE CRTAB 20 MEQ TABCR PO SCH (13:12)
[2020-06-19] MEDS: guaiFENesin 600 MG TABCR PO SCH (13:12)
[2020-06-19] MEDS: LAVAGE SOLUTION 4000ML PR SCH ×6 (13:14→21:27)
[2020-06-19] MEDS: PROLENSA OP SCH ×3 (13:20→20:14)
[2020-06-19] MEDS: DUREZOL OP SCH ×3 (13:20→20:14)
[2020-06-19] MEDS ORDERED: ACETAMINOPHEN 1000 MG/100 ML IV IV PRN (16:50)
[2020-06-19] MEDS: DOXYCYCLINE HYCLATE 100 MG in DEXTROSE 5% 100 ML IV SCH (17:39)
[2020-06-19 17:58] LABS: BUN Creatinine Ratio 47.3 (10-20); Creatinine Clr Calc Pharmacy 101.4 ml/min; Est GFR (African American) 93.8; Est GFR (Non-African American) 80.9
--- NOTE | 2020-06-19 19:43 | Nephrology Progress Note ---
Date of Service June 19, 2020 Assessment & Plan (1) Disorders of fluid, electrolyte, and acid-base balance: Last creatinine in June 2018 was 1.12 was admitted with a serum creatinine of 1.6, which has been gradually increasing to peak at 2.9 on 06/14, down to 0.9 today. still on 4-5L and no longer w/ down trend. Fluid overload improving >> would cont to hold lasix w/ bicarb in current range; recheck tomorrow; can give prn if sob ON His potassium was ok on labs this am but repeat pending; expect a drop w/ replaced rectal tube >>K supplements currently on hold -avoid IV albumin w/ hypoxia/vol OL -cont strict I/O -cont to hold CCB d/t hypotension but may be able to reintroduce if sbp goes up Present on Admission?: Yes (2) Acute kidney failure: resolved as above Present on Admission?: Yes Admission and Anticipated Discharge Date Admission Date: June 13, 2020 Subjective seen on rounds this evening 1845 > was at procedure earlier today: colonic decompression w/ rectal tube placement; surgery and GI following closely; if no surgery, may need tertiary care. lasix held this am d/t CT angio yesterday; pt w/ no c/o sob; + c/o thirst, wants ice. no n/v. no abd pain Review of Systems Review of Systems: All systems reviewed & are unremarkable except as noted in Subjective Physical Exam Constitutional: well developed, well nourished, + morbidly obese, + obese and + frail appearing; no acute distress Eyes: EOM intact bilaterally ENMT: Ears: no external ear abnormality Nose: no external nose abnormality Mouth: + dry oral mucous membranes Neck: no nuchal rigidity Respiratory: normal respiratory effort Auscultation: + diminished lung sounds Cardiovascular: Rate/Rhythm: regular rate and regular rhythm Extremities: no edema Gastrointestinal (Abdomen): Inspection/Auscultation: normal bowel sounds Percussion/Palpation: abdomen soft; abdomen nontender rectal tube present Musculoskeletal: Extremities: strength 5/5 throughout and + abnormal strength Skin: no rashes, warm and dry Neurologic: profound generalized weakness > cannot give himself ice; Psychiatric: Orientation: alert, oriented to person and oriented to place Genitourinary: vann present w/ ample light urine Results & Data ([place]) Vital Signs (Past 12 Hours) Vital Signs Temp Pulse Pulse Resp BP Pulse Ox 06/19/20 15:01 36.9 C 83 20 129/76 92 06/19/20 14:56 76 06/19/20 12:36 36.9 C 75 20 118/75 97 06/19/20 11:44 79 20 142/69 H 93 06/19/20 11:29 81 22 131/69 92 06/19/20 11:14 83 20 128/67 94 06/19/20 10:04 36.4 C L 82 18 141/70 H 94 06/19/20 07:39 77 18 96 Laboratory Results 06/19/20 06:08 06/19/20 16:[address] chest w/ con yesterday 1. No pulmonary emboli identified although segmental and subsegmental pulmonary arteries suboptimally assessed on this exam. 2. Extensive bilateral lower lobe airspace opacities with volume loss which favors atelectasis although pneumonia could appear similar. 3. Additional groundglass opacities within the lungs could reflect an infectious process or pulmonary edema. 4. Dilatation of the central pulmonary arteries which suggests pulmonary arteri al hypertension. 5. Moderate cardiomegaly. kub midday 1. Status post placement of a rectal tube which terminates in the left lower quadrant likely within the redundant sigmoid colon. The sigmoid colon is now completely decompressed. 2. Interval improvement in the dilated cecum and small bowel. (1) Acute kidney failure Acute renal failure type: unspecified Qualified Code(s): N17.9 - Acute kidney failure, unspecified
[2020-06-20] MEDS: LAVAGE SOLUTION 4000ML PR SCH ×12 (00:37→22:44)
[2020-06-20 00:57] LABS: Potassium 3.7 mmol/L (3.5-5.1)
[2020-06-20] MEDS: DOXYCYCLINE HYCLATE 100 MG in DEXTROSE 5% 100 ML IV SCH ×2 (04:54→16:19)
[2020-06-20] MEDS: PIPERACILLIN/TAZOBACTAM 4.5 GM in DEXTROSE 5% 100 ML IV SCH ×3 (04:55→19:55)
--- NOTE | 2020-06-20 06:56 | Hospitalist Progress Note ---
Date of Service June 20, 2020 Assessment & Plan (1) Constipation: Present on admission with abdominal discomfort and distended CT abd/pelvis showed marked colonic and moderate small bowel dilatation due to to a large amount of stool within the distal sigmoid colon and rectum which results in a functional colonic obstruction. Repeat KUB showed no change in the distended and stool-filled large and small bowel. GI on board smog enemas or soap kurtis enema bowel prep was given Surgery on board no indication for any surgical intervention Pt has been having numerous bowel movement Diet advanced as tolerated GI recommended MiraLAX 17 g 1-2 times daily Will keep K > 4 and Mg > 2 to facilitate bowel motility GI recommended outpatient colonoscopy, pt would think about it before scheduling it Continue monitor closely 06/18 patient still requiring supplemental oxygen today, which is different from his baseline, imaging obtained. Also procalcitonin elevated at 7. KUB was obtained as well, as it shows significant dilatation of bowels. NG tube tried to be placed overnight several times, however unsuccessful. Patient then declined further attempts. Sigmoid volvulus 06/19 KUB was repeated this morning shows progressive markedly distended large/small bowel with sigmoid colon measuring up to 16 cm in diameter, concerning for sigmoid volvulus. Surgery and GI contacted. Surgery recommends GI for colonic decompression. Plan for urgent colonoscopy/ colonic decompression by Dr. Rutherofrd. Patient underwent colonic decompression with Dr. Rutherford, from GI. It is recommended that patient then has surgery. Discussed in detail with surgical service, and they feel that there is no urgency to surgery at this point, if surgery needed it would be done here, no need for tertiary care center. Recommend to start on liquid diet. This was also discussed in detail with patient and his daughter, who are in agreement, to follow with surgery here for now. (2) Acute kidney failure: Creatinine on admission 1.6, then worsening to 2.9, now down to 1.1 Renal u/s showed No definite hydronephrosis. study was difficult Creatinine normalized Nephrology on board, appreciate their input, pt was on Lasix 60 mg IV BID Avoid nephrotoxic agents Continue monitor BMP Follow up with nephrology on discharge (3) High serum lactate: Possible related to respiratory hypoxia vs sepsis vs LIZZ Pt has been afebrile Doubt sepsis CT abd/pelvis showed no free air. Marked colonic and moderate small bowel di latation due to to a large amount of stool within the distal sigmoid colon and rectum which results in a functional colonic obstruction. IVF was discontinued due to mild pulmonary edema and worsening hypoxia Blood cx no growth Lactic acid normalized at 1.3 Procalcitonin elevated at 7 (06/18), now trending down Continue zosyn, add doxy obtain blood cultx CT PE ordered for further eval - no PE, poss. However extensive bilateral lower lobe airspace opacities c/w atelectasis, poss. pna. Additional groundglass opacities within the lungs could reflect an infectious process or pulmonary edema. Dilatation of the central pulmonary arteries suggest pulmonary arterial hypertension. KUB also obtained, show significant dilatation of the bowel, now concern for sigmoid volvulus as above. (4) Diastolic CHF, chronic: Last echocardiogram was completed on 06/22/2018, showing EF of 65 to 70%, concentric LVH, grade 1 diastolic dysfunction CXR showed Mild interstitial pulmonary edema, unchanged. IVF was discontinued due to worsening SOB Continue to hold Bumex Continued Lasix IV 60mg BID as per nephrology Continue oxygen supplement (5) Elevated d-dimer: D-Dimer 1070 PT had elevated d-dimer in the past Doppler of LE extremities showed no DVT unable to get a CTA chest to r/o PE due to elevate creatinine on admission Considered to get a V/Q scan, doubt that will help since pt has hx COPD with interstitial changes Cr normalized,obtained CT PE (06/18) - negative for PE (6) HTN (hypertension): BP stable Continue to hold amlodipine (7) Dyslipidemia: Continue statin therapy, had held this several weeks ago for a trial to see if this was causing muscle weakness/pain, but has restarted it at this point (8) COPD (chronic obstructive pulmonary disease): Patient wears BiPAP at night with 4L O2, Continue BIpap for now (9) Obesity hypoventilation syndrome: - Hx of such (10) Chronic respiratory failure with hypercapnia: (11) Hypoxia: CXR showed progressive perihilar interstitial/vascular thickening suggestive of mild pulmonary edema. ABG showed pH 7.32, PCO2 65, P02 74 HCO3 33 Patient wears BiPAP at night with 4L O2 at baseline Worsening hypoxia Unable to get a CTA chest to r/o PE Has been off bipap, now on nasal canula Consider to get a CT chest without contrast if no improvement Will continue wean off oxygen Clinically improved Cr now normalized, obtained CT PE (06/18) - no PE, poss. However extensive bilateral lower lobe airspace opacities c/w atelectasis, poss. pna. Additional groundglass opacities within the lungs could reflect an infectious process or pulmonary edema. Dilatation of the central pulmonary arteries suggest pulmonary arterial hypertension. Cont. zosyn, doxy, for now Incentive spirometer, flutter valve, guaifenesin if pt can take PO (12) Obesity: -BMI of 37.6 (13) Hypothyroidism: Cont levothyroxine 175 mcg daily (14) Gout: -Cont colchicine 0.6 mg daily (15) Sleep apnea: Continue bipap as above (16) DVT prophylaxis: scds/heparin subq CODE: DNR/DNI Disposition: transferred to medical Admission and Anticipated Discharge Date Admission Date: June 13, 2020 Subjective Pt was seen and examined for follow up of hypoxia and abdominal discomfort, sigmoid volvulus Lying in bed in no distress however appears very fatigued He continues to require suppl. O2 Denies any chest pain, palpitation, dizziness and fever Procalcitonin elevated, therefore cont. zosyn, add doxy Underwent chronic decompression with GI, for sigmoid volvulus yesterday Per GI, recommendation for surgery Per surgical service, will await for now, and if surgery needed it can be done here, do not feel need for a tertiary care center This was in detail discussed with patient and his daughter Soniya, and they feel that for now they will follow with surgery here. Started patient on full liquid diet. Review of Systems Review of Systems: All systems reviewed & are unremarkable except as noted in HPI & below Constitutional: + fatigue; no fever and no chills Respiratory: + cough (occasional); no dyspnea (but remains on suppl. O2) Cardiovascular: no chest pain and no palpitations Gastrointestinal: no abdominal pain, no nausea and no vomiting Physical Exam Physical Exam: General- Elderly obese frail male laying in bed in no acute distress, on suppl. O2 4L Head- normocephalic, atraumatic Eyes- PERRL, EOMI, ENT- oropharynx clear Neck- supple, no JVD Lungs- decrease BS, Difficult lung exam as patient is very weak to move Heart- regular rhythm; no murmur Abdomen- nontender, obese, soft, + distended, sluggish bowel sounds Extremities- no calf tenderness, +edema Neuro- alert, oriented x 3; PERRL, EOMI; no facial palsy; no dysarthria, +generalized weakness Skin- warm & dry Results & Data Results & Data ([facility]) Vital Signs (Past 12 Hours) Vital Signs Temp Pulse Pulse Resp BP Pulse Ox 06/20/20 04:32 81 06/20/20 03:00 36.8 C 88 20 120/84 95 06/19/20 23:00 36.6 C 75 20 117/61 96 06/19/20 21:50 80 18 90 06/19/20 19:52 80 18 95 06/19/20 19:00 36.4 C L 81 20 145/75 H 96 Laboratory Results 06/20/20 06/20/20 06/20/20 Range/Units 06:43 06:43 06:43 WBC 13.46 H (4.8-10.8) K/uL RBC 4.11 L (4.7-6.1) M/uL Hgb 12.2 L (14.0-18.0) g/dL Hct 38.7 L (42-52) % MCV 94.2 (80-100) fL MCH 29.7 (25-34) pg MCHC 31.5 L (32-36) g/dL RDW Std Deviation 52.7 H (36.4-46.3) fL RDW Coeff of Maximilian 15.2 H (11.5-14.5) % Plt Count 175 (130-400) K/uL MPV 10.6 H (7.4-10.4) fL Sodium 149 H (136-145) mmol/L Potassium 3.4 L (3.5-5.1) mmol/L Chloride 107 (98-107) mmol/L Carbon Dioxide 37 H (21-32) mmol/L Anion Gap 5.0 (3-11) BUN 36 H (7-18) mg/dl Creatinine 0.80 (0.6-1.4) mg/dl Est Cr Clr Drug Dosing 114.4 ml/min Est GFR ( Amer) 98.5 Est GFR (Non-Af Amer) 85.0 BUN/Creatinine Ratio 45.8 H (10-20) Glucose 103 H (70-99) mg/dl Calcium 9.1 (8.5-10.1) mg/dl Phosphorus 2.7 (2.5-4.9) mg/dl Magnesium 2.2 (1.8-2.4) mg/dl Total Bilirubin 0.7 (0.2-1) mg/dl AST 50 H (15-37) U/L ALT 69 (12-78) U/L Alkaline Phosphatase 123 H (45-117) U/L Total Protein 5.4 L (6.4-8.2) gm/dl Albumin 2.7 L (3.4-5.0) gm/dl Globulin 2.7 (2.5-4.0) gm/dl Albumin/Globulin Ratio 1.0 (0.9-2) Procalcitonin 1.42 H (0-0.5) ng/ml TSH 3.830 (0.300-4.500) uIu/ml 06/19/20 Range/Units 16:51 WBC (4.8-10.8) K/uL RBC (4.7-6.1) M/uL Hgb (14.0-18.0) g/dL Hct (42-52) % MCV (80-100) fL MCH (25-34) pg MCHC (32-36) g/dL RDW Std Deviation (36.4-46.3) fL RDW Coeff of Maximilian (11.5-14.5) % Plt Count (130-400) K/uL MPV (7.4-10.4) fL Sodium 147 H (136-145) mmol/L Potassium 3.7 (3.5-5.1) mmol/L Chloride 105 (98-107) mmol/L Carbon Dioxide 40 H (21-32) mmol/L Anion Gap 1.0 L (3-11) BUN 42 H (7-18) mg/dl Creatinine 0.90 (0.6-1.4) mg/dl Est Cr Clr Drug Dosing 101.4 ml/min Est GFR ( Amer) 93.8 Est GFR (Non-Af Amer) 80.9 BUN/Creatinine Ratio 47.3 H (10-20) Glucose 101 H (70-99) mg/dl Calcium 9.0 (8.5-10.1) mg/dl Phosphorus (2.5-4.9) mg/dl Magnesium (1.8-2.4) mg/dl Total Bilirubin (0.2-1) mg/dl AST (15-37) U/L ALT (12-78) U/L Alkaline Phosphatase (45-117) U/L Total Protein (6.4-8.2) gm/dl Albumin (3.4-5.0) gm/dl Globulin (2.5-4.0) gm/dl Albumin/Globulin Ratio (0.9-2) Procalcitonin (0-0.5) ng/ml TSH (0.300-4.500) uIu/ml Medications Administered Current Inpatient Medications Acetaminophen (Acetaminophen 325 Mg Tab) 650 mg PO Q4H PRN PRN Reason: Moderate Pain Stop: 07/13/20 18:19 Acetaminophen (Acetaminophen 1000 Mg/100 Ml Iv) 1,000 mg IV Q8H PRN PRN Reason: Pain or Fever Stop: 06/22/20 16:49 Amlodipine Besylate (Amlodipine Besylate 5 Mg Tab) 5 mg PO QAM [facility] Stop: 07/14/20 08:59 Last Admin: 06/14/20 11:20 Dose: 5 mg Documented by: Aspirin (Aspirin 81 Mg Ectab) 81 mg PO QAM YOSSI Stop: 07/14/20 08:59 Last Admin: 06/20/20 08:29 Dose: 81 mg Documented by: Calcium Carbonate (Calcium Carbonate 500 Mg Chewable Tab) 500 mg PO BID PRN PRN Reason: gerd Stop: 07/13/20 18:19 Last Admin: 06/15/20 18:12 Dose: 500 mg Documented by: Doxycycline Hyclate (Doxycycline Hyclate 100 Mg Cap) 100 mg PO BID YOSSI Stop: 06/25/20 08:59 Last Admin: 06/19/20 13:12 Dose: Not Given Documented by: Guaifenesin (Guaifenesin 600 Mg Tabcr) 600 mg PO Q12 YOSSI Stop: 07/19/20 08:59 Last Admin: 06/19/20 13:12 Dose: Not Given Documented by: Heparin Sodium (Porcine) (Heparin Sod 5,000 Unit/0.5 Ml Vial) 5,000 units SQ Q12 YOSSI Stop: 07/13/20 20:59 Last Admin: 06/20/20 08:29 Dose: 5,000 units Documented by: Furosemide 60 mg/ Syringe 6 mls @ 4 mls/min IV BID17 [facility] Stop: 07/15/20 11:14 Last Admin: 06/18/20 08:49 Dose: 4 mls/min Documented by: Piperacillin Sod/Tazobactam (Sod 4.5 gm/ Dextrose) 120 mls @ 30 mls/hr IV Q8H [facility]; Protocol Stop: 06/25/20 13:59 Last Admin: 06/20/20 04:55 Dose: 30 mls/hr Documented by: Doxycycline Hyclate 100 mg/ (Dextrose) 110 mls @ 50 mls/hr IV Q12H [facility] Stop: 06/26/20 16:59 Last Infusion: 06/20/20 06:57 Dose: Infused Documented by: Levothyroxine Sodium 131 mcg/ (Syringe) 6.55 mls @ 3.275 mls/min IV Q72H [facility] Stop: 07/22/20 06:29 Ipratropium [place] (Ipratropium [place] Neb Soln 0.02% 2.5 Ml Vial) 0.5 mg INH BIDR [facility] Stop: 07/18/20 18:59 Last Admin: 06/20/20 07:28 Dose: 0.5 mg Documented by: Ipratropium [place] (Ipratropium [place] Neb Soln 0.02% 2.5 Ml Vial) 0.5 mg INH Q6R PRN PRN Reason: Shortness Of Breath Or Wheezing Stop: 07/18/20 22:29 Levalbuterol HCl (Levalbuterol 1.25mg/0.5ml Neb) 1.25 mg INH BIDR [facility] Stop: 07/18/20 18:59 Last Admin: 06/20/20 07:28 Dose: 1.25 mg Documented by: Levalbuterol HCl (Levalbuterol 1.25mg/0.5ml Neb) 1.25 mg INH Q6R PRN PRN Reason: Shortness Of Breath Or Wheezing Stop: 07/19/20 00:59 Levothyroxine Sodium (Levothyroxine Sodium 175 Mcg Tablet) 175 mcg PO DAILYBB [facility] Stop: 07/14/20 06:29 Last Admin: 06/19/20 06:07 Dose: 175 mcg Documented by: Menthol (Cough Drop (Sugar Free) Charla 24 Charla/1 Box) 1 charla BUCCAL NOW PRN PRN Reason: Sore Throat Stop: 07/17/20 22:31 Miscellaneous Information (Piperacill/Tazobac Consult Active) 1 ea N/A UD PRN PRN Reason: Consult Stop: 07/18/20 08:37 Prolensa~Non- Formulary Patient's Own Med 1 ea OP BID YOSSI Stop: 07/14/20 08:59 Last Admin: 06/20/20 08:29 Dose: Not Given Documented by: Durezol~Non- Formulary Patient's Own Med 1 ea OP BID YOSSI Stop: 07/14/20 08:59 Last Admin: 06/20/20 08:29 Dose: Not Given Documented by: Polyethylene Glycol (Polyethylene (Miralax) 17 Gm Pack) 17 gm PO BID [facility] Stop: 07/18/20 12:14 Last Admin: 06/19/20 09:14 Dose: Not Given Documented by: Polyethylene Glycol/Electrolytes (Lavage Solution 4000ml) 0.4 dose WV Q2H [facility] Stop: 06/22/20 18:01 Last Admin: 06/20/20 08:29 Dose: 0.4 dose Documented by: Potassium Chloride (Potassium Chloride Crtab 20 Meq Tabcr) 40 meq PO QAM [facility] Stop: 07/18/20 13:59 Last Admin: 06/19/20 13:12 Dose: Not Given Documented by: Potassium Phosphate (Pot Phosphate Monobasic W/ Sod Tab) 1 tab PO QID [facility] Stop: 07/19/20 08:59 Last Admin: 06/19/20 15:49 Dose: Not Given Documented by: Simvastatin (Simvastatin 20 Mg Tab) 20 mg PO HS [facility] Stop: 07/13/20 20:59 Last Admin: 06/18/20 22:49 Dose: 20 mg Documented by: Vitamin D (Cholecalciferol 1,000 Units 25 Mcg Tab) 1,000 units PO QAM [facility] Stop: 07/14/20 08:59 Last Admin: 06/19/20 13:12 Dose: Not Given Documented by: (1) Acute kidney failure Acute renal failure type: unspecified Qualified Code(s): N17.9 - Acute kidney failure, unspecified
[2020-06-20 07:13] LABS: Hematocrit (blood only) 38.7 % (42-52); Hemoglobin 12.2 g/dL (14.0-18.0); Mean Corpuscular Hemoglobin 29.7 pg (25-34); Mean Corpuscular Hgb Conc 31.5 g/dL (32-36); Mean Corpuscular Volume 94.2 fL (80-100); Mean Platelet Volume 10.6 fL (7.4-10.4); Platelet Count 175 K/uL (130-400); RDW Coefficient of Variation 15.2 % (11.5-14.5); RDW Standard Deviation 52.7 fL (36.4-46.3); Red Blood Count 4.11 M/uL (4.7-6.1); White Blood Count 13.46 K/uL (4.8-10.8)
[2020-06-20] MEDS: IPRATROPIUM BROMIDE NEB SOLN 0.02% 2.5 ML VIAL INH SCH ×2 (07:28→19:25)
[2020-06-20] MEDS: LEVALBUTEROL 1.25MG/0.5ML NEB INH SCH ×2 (07:28→19:25)
[2020-06-20 07:54] LABS: Albumin Level 2.7 gm/dl (3.4-5.0); BUN Creatinine Ratio 45.8 (10-20); Calcium 9.1 mg/dl (8.5-10.1); Creatinine Clr Calc Pharmacy 114.4 ml/min; Est GFR (African American) 98.5; Magnesium 2.2 mg/dl (1.8-2.4); Potassium 3.4 mmol/L (3.5-5.1)
[2020-06-20 08:05] LABS: Bilirubin,Total 0.7 mg/dl (0.2-1); Globulin 2.7 gm/dl (2.5-4.0); Phosphorus 2.7 mg/dl (2.5-4.9); Thyroid Stimulating Hormone 3.83 uIu/ml (0.300-4.500); Total Protein 5.4 gm/dl (6.4-8.2)
--- NOTE | 2020-06-20 08:16 | Gastroenterology Progress Note ---
Date of Service June 20, 2020 Assessment & Plan (1) Dilatation of colon: This is a 79 y/o male with h/o multiple comorbidities, history of constipation, and yesterday underwent urgent colonoscopy for colonic decompression and rectal tube placement given concern for suspected sigmoid volvulus. Post-procedure KUB demonstrated decompressed colon and improvement in cecal/small bowel dilation. It was recommended pt evaluated by surgery for consideration of sigmoid colectomy either here or at tertiary facility. He feels well today; abd soft, nontender; rectal tube remains in place draining small amt of brown liquid stool. - Surgery is following the pt, per their note, not planning on surgical intervention today and will follow over the weekend. - Would recommend daily KUB - Would keep rectal tube in place - Continue use of Colyte 100 mL through the rectal tube every 2 hours to help clear excess stool - Continue monitoring abd exam, monitor and document stool output, supportive care as per primary team - Diet as per surgical, primary teams Please call with any acute changes, questions or concerns. Please see addendum below with additional recommendation from my supervising physician. Admission and Anticipated Discharge Date Admission Date: June 13, 2020 Supervising Physician Co-Signing Physician Notes I saw and evaluated the patient. He underwent a colonic decompression yesterday with placement of a rectal tube for suspected sigmoid volvulus. The patient appears to be having spontaneous bowel movements today. Recommendations Daily KUB Continue Colyte 100 mL every 2 hours to maintain patency of the rectal tube We will defer to general surgery with regard to further management of sigmoid volvulus Please call with any questions or concerns, GI to sign off Subjective Patient seen and examined, chart reviewed. Rectal tube remains in place, with Colyte being administered q 2h; overnight had approx 300 mL liquid stool output. He is sitting upright in bed about to have clear liquids for breakfast. He denies any complaints; no abd pain, distention, n/v, fever, chills. Review of Systems Review of Systems: All systems reviewed & are unremarkable except as noted in HPI & below Physical Exam Constitutional: WD/WN, vitals as above Respiratory: normal respiratory effort Cardiovascular: Rate/Rhythm: regular rate and regular rhythm Gastrointestinal (Abdomen): Inspection/Auscultation: normal bowel sounds; abdomen not distended Percussion/Palpation: abdomen soft; abdomen nontender Rectal tube in place; small amt brown liquid stool in bag Psychiatric: A+Ox3, euthymic affect Results & Data ([facility]) Vital Signs (Past 12 Hours) Vital Signs Temp Pulse Pulse Resp BP Pulse Ox 06/20/20 07:29 84 16 97 06/20/20 07:18 90 06/20/20 07:00 36.6 C 84 18 114/69 97 06/20/20 04:32 81 06/20/20 03:00 36.8 C 88 20 120/84 95 06/19/20 23:00 36.6 C 75 20 117/61 96 06/19/20 21:50 80 18 90 Laboratory Results 06/20/20 06/20/20 06/20/20 Range/Units 06:43 06:43 06:43 WBC 13.46 H (4.8-10.8) K/uL RBC 4.11 L (4.7-6.1) M/uL Hgb 12.2 L (14.0-18.0) g/dL Hct 38.7 L (42-52) % MCV 94.2 (80-100) fL MCH 29.7 (25-34) pg MCHC 31.5 L (32-36) g/dL RDW Std Deviation 52.7 H (36.4-46.3) fL RDW Coeff of Maximilian 15.2 H (11.5-14.5) % Plt Count 175 (130-400) K/uL MPV 10.6 H (7.4-10.4) fL Sodium 149 H (136-145) mmol/L Potassium 3.4 L (3.5-5.1) mmol/L Chloride 107 (98-107) mmol/L Carbon Dioxide 37 H (21-32) mmol/L Anion Gap 5.0 (3-11) BUN 36 H (7-18) mg/dl Creatinine 0.80 (0.6-1.4) mg/dl Est Cr Clr Drug Dosing 114.4 ml/min Est GFR ( Amer) 98.5 Est GFR (Non-Af Amer) 85.0 BUN/Creatinine Ratio 45.8 H (10-20) Glucose 103 H (70-99) mg/dl Calcium 9.1 (8.5-10.1) mg/dl Phosphorus 2.7 (2.5-4.9) mg/dl Magnesium 2.2 (1.8-2.4) mg/dl Total Bilirubin 0.7 (0.2-1) mg/dl AST 50 H (15-37) U/L ALT 69 (12-78) U/L Alkaline Phosphatase 123 H (45-117) U/L Total Protein 5.4 L (6.4-8.2) gm/dl Albumin 2.7 L (3.4-5.0) gm/dl Globulin 2.7 (2.5-4.0) gm/dl Albumin/Globulin Ratio 1.0 (0.9-2) Procalcitonin 1.42 H (0-0.5) ng/ml TSH 3.830 (0.300-4.500) uIu/ml 06/19/20 Range/Units 16:51 WBC (4.8-10.8) K/uL RBC (4.7-6.1) M/uL Hgb (14.0-18.0) g/dL Hct (42-52) % MCV (80-100) fL MCH (25-34) pg MCHC (32-36) g/dL RDW Std Deviation (36.4-46.3) fL RDW Coeff of Maximilian (11.5-14.5) % Plt Count (130-400) K/uL MPV (7.4-10.4) fL Sodium 147 H (136-145) mmol/L Potassium 3.7 (3.5-5.1) mmol/L Chloride 105 (98-107) mmol/L Carbon Dioxide 40 H (21-32) mmol/L Anion Gap 1.0 L (3-11) BUN 42 H (7-18) mg/dl Creatinine 0.90 (0.6-1.4) mg/dl Est Cr Clr Drug Dosing 101.4 ml/min Est GFR ( Amer) 93.8 Est GFR (Non-Af Amer) 80.9 BUN/Creatinine Ratio 47.3 H (10-20) Glucose 101 H (70-99) mg/dl Calcium 9.0 (8.5-10.1) mg/dl Phosphorus (2.5-4.9) mg/dl Magnesium (1.8-2.4) mg/dl Total Bilirubin (0.2-1) mg/dl AST (15-37) U/L ALT (12-78) U/L Alkaline Phosphatase (45-117) U/L Total Protein (6.4-8.2) gm/dl Albumin (3.4-5.0) gm/dl Globulin (2.5-4.0) gm/dl Albumin/Globulin Ratio (0.9-2) Procalcitonin (0-0.5) ng/ml TSH (0.300-4.500) uIu/ml Diagnostic Findings Colonoscopy 06/19/20: - Preparation of the colon was poor - Stool in the sigmoid colon, in the descending colon and in the transverse colon - Dilated in the entire examined colon. Decompression tube placed KUB 06/19/20: 1. Status post placement of a rectal tube which terminates in the left lower quadrant likely within the redundant colon. The sigmoid colon is now completely decompressed. 2. Interval improvement in the dilated cecum and small bowel
--- NOTE | 2020-06-20 08:21 | Surgery Progress Note ---
Date of Service June 20, 2020 Assessment & Plan (1) Dilatation of colon: Patient is day#1 s/p colonic decompression with GI for sigmoid colon distention and concern for volvulus. A decompression tube has been left in place. Post procedure KUB showed improvement - Today patient denies any abdominal complaints. Abdomen is soft and non tender - We will start patient on full liquids for today - Dr. Ware has discussed the possibility of surgical intervention with his daughter Soniya. There is no current urgency to alcantara into surgery, so we will continue to follow closely and see how he fairs over the weekend. No need to send patient to tertiary center - Will order KUB today for further evaluation - Pt has been seen and examined with Dr. Ware - [facility] surgery covering for the weekend Admission and Anticipated Discharge Date Admission Date: June 13, 2020 Subjective Patient offers no complaints. Denies any abdominal pain/nausea/vomiting. Says he is thirsty. Physical Exam Physical Exam: awake Gastrointestinal (Abdomen): Percussion/Palpation: abdomen soft; abdomen nontender Results & Data ([facility]) Vital Signs (Past 12 Hours) Vital Signs Temp Pulse Pulse Resp BP Pulse Ox 06/20/20 07:29 84 16 97 06/20/20 07:18 90 06/20/20 07:00 36.6 C 84 18 114/69 97 06/20/20 04:32 81 06/20/20 03:00 36.8 C 88 20 120/84 95 06/19/20 23:00 36.6 C 75 20 117/61 96 06/19/20 21:50 80 18 90 PG Care Time/CCT Total # of Minutes Spent Total Time Spent with Patient: Total time spent is greater than 50% in coordination of care (as documented) at patient's floor/unit and/or counseling patient: Coding Level of Care Code 35223 Subseq Hosp Care Lvl 1 Diagnoses Dilatation of colon K59.39
[2020-06-20] MEDS: HEPARIN SOD 5,000 UNIT/0.5 ML VIAL SQ SCH ×2 (08:29→20:49)
[2020-06-20] MEDS: DUREZOL OP SCH ×2 (08:29→19:55)
[2020-06-20] MEDS: PROLENSA OP SCH ×2 (08:29→19:55)
[2020-06-20] MEDS: ASPIRIN 81 MG ECTAB PO SCH (08:29)
[2020-06-20] MEDS ORDERED: POTASSIUM CHLORIDE CRTAB 20 MEQ TABCR PO STA (08:59)
[2020-06-20] MEDS ORDERED: POTASSIUM CHLORIDE / WTR 10 MEQ/100 ML PLCT IV ONE (09:15)
[2020-06-20] MEDS: guaiFENesin 600 MG TABCR PO SCH ×2 (10:38→19:56)
--- NOTE | 2020-06-20 11:09 | XRay Report ---
KUB HISTORY: Status post colonic decompression eval for bowel distention, s/p colon decompression COMPARISON: KUB 06/19/2020 FINDINGS: Rectal tube is noted coiling within the rectum and distal tip projected over the abdominal left upper quadrant either within the redundant sigmoid or descending colon. There is persistent gase ous distention of the large and small bowel the overall appears similar to comparison with decreased gaseous distention of the cecum. No renal calculi. No ureteral calculi. No pneumoperitoneum or pneum atosis. No fracture. IMPRESSION: 1. Rectal tube distal tip projects over the abdominal left upper quadrant. 2. There is persistent gaseous distention of the large and small bowel with decreased gaseous distent ion of the cecum. ACT 112: Negative or not required by law.r The above report was generated using voice recognition software. It may contain grammatical, syntax o r spelling errors. Electronically signed by: Michael Macias M.D. 06/20/2020 11:08 AM
--- NOTE | 2020-06-20 15:02 | Nephrology Progress Note ---
Date of Service June 20, 2020 Assessment & Plan (1) Disorders of fluid, electrolyte, and acid-base balance: Last creatinine in June 2018 was 1.12 was admitted with a serum creatinine of 1.6, which has been gradually increasing to peak at 2.9 on 06/14, down to 0.9 today. still on 4-5L and no longer w/ down trend. Fluid overload resolved; he's actually dry now His potassium dropping w/ replaced rectal tube and po supplements on hold >> have cancelled lasix but can give prn if sob ON >>started D5W w/ 40 mEq/L K at 80 mL hourly for hypernatremia and hypokalemia, both worsening but still mild -avoid IV albumin w/ hypoxia/vol OL -cont strict I/O -cont to hold CCB d/t hypotension but may be able to reintroduce if sbp goes up >>>>pls evaluate whether this pt needs to be fed and offered drinks if not already doing this (2) Acute kidney failure: resolved as above Admission and Anticipated Discharge Date Admission Date: June 13, 2020 Subjective seen on rounds at 0815. no overnight events. no abd pain; tolerating rectal tu be. no worsening breathing. as yesterday he is very thirsty, asking for ice which he cannot seem to give/get for himself Review of Systems Review of Systems: All systems reviewed & are unremarkable except as noted in Subjective Physical Exam Constitutional: well developed, well nourished, + morbidly obese, + obese and + frail appearing; no acute distress Eyes: EOM intact bilaterally ENMT: Ears: no external ear abnormality Nose: no external nose abnormality Mouth: + dry oral mucous membranes Neck: no nuchal rigidity Respiratory: normal respiratory effort Auscultation: + diminished lung sounds Cardiovascular: Rate/Rhythm: regular rate and regular rhythm Extremities: no edema Gastrointestinal (Abdomen): Inspection/Auscultation: normal bowel sounds Percussion/Palpation: abdomen soft; abdomen nontender rectal tube Musculoskeletal: Extremities: + abnormal strength Skin: no rashes, warm and dry Psychiatric: Orientation: alert, oriented to person and oriented to place Genitourinary: vann present Results & Data ([facility]) Vital Signs (Past 12 Hours) Vital Signs Temp Pulse Pulse Resp BP BP Pulse Ox 06/20/20 14:50 36.9 C 72 20 135/76 95 06/20/20 11:19 37.0 C 85 18 122/73 95 06/20/20 07:29 84 16 97 06/20/20 07:18 90 06/20/20 07:00 36.6 C 84 18 114/69 97 06/20/20 04:32 81 06/20/20 03:00 36.8 C 88 20 120/84 95 Laboratory Results 06/20/20 06:43 06/20/20 06:43 (1) Acute kidney failure Acute renal failure type: unspecified Qualified Code(s): N17.9 - Acute kidney failure, unspecified
[2020-06-20] MEDS: POTASSIUM CHLORIDE 40 MEQ in DEXTROSE 5% 1,000 ML IV SCH (16:19)
[2020-06-21] MEDS: LAVAGE SOLUTION 4000ML PR SCH ×11 (01:00→22:35)
[2020-06-21] MEDS: POTASSIUM CHLORIDE 40 MEQ in DEXTROSE 5% 1,000 ML IV SCH ×2 (06:01→18:05)
[2020-06-21] MEDS: LEVOTHYROXINE SODIUM 175 MCG TABLET PO SCH (06:01)
[2020-06-21] MEDS: DOXYCYCLINE HYCLATE 100 MG in DEXTROSE 5% 100 ML IV SCH ×2 (06:01→18:05)
[2020-06-21] MEDS: PIPERACILLIN/TAZOBACTAM 4.5 GM in DEXTROSE 5% 100 ML IV SCH ×3 (06:03→22:35)
[2020-06-21] MEDS: IPRATROPIUM BROMIDE NEB SOLN 0.02% 2.5 ML VIAL INH SCH ×2 (07:18→19:26)
[2020-06-21] MEDS: LEVALBUTEROL 1.25MG/0.5ML NEB INH SCH ×2 (07:18→19:25)
[2020-06-21] MEDS ORDERED: POTASSIUM CHLORIDE CRTAB 20 MEQ TABCR PO STA (08:27)
[2020-06-21] MEDS: guaiFENesin 600 MG TABCR PO SCH ×2 (08:51→21:32)
[2020-06-21] MEDS: ASPIRIN 81 MG ECTAB PO SCH (08:52)
[2020-06-21] MEDS: HEPARIN SOD 5,000 UNIT/0.5 ML VIAL SQ SCH ×2 (08:57→21:36)
[2020-06-21] MEDS: DUREZOL OP SCH ×2 (09:02→21:35)
[2020-06-21] MEDS: PROLENSA OP SCH ×2 (09:02→21:35)
--- NOTE | 2020-06-21 09:18 | XRay Report ---
KUB HISTORY: Abdominal distention with rectal tube eval bowel distention, s/p colonic decompression COMPARISON: KUB 06/20/2020 FINDINGS: A rectal tube is again noted coiled within the rectum and projected superiorly with distal tip in the left midabdomen, likely within the tortuous sigmoid colon. There is persistent gaseous dis tention of the large bowel which measures up to approximately 8.9 cm transversely which has not signi ficantly changed from comparison. Air-filled mildly distended loops of small bowel are also noted. N o renal calculi. No ureteral calculi. No pneumoperitoneum or pneumatosis. No fracture. IMPRESSION: Rectal tube terminates in the left midabdomen, likely within the redundant sigmoid colon. There is pe rsistent gaseous distention of the large and small bowel. No significant change from yesterday's exam . ACT 112: Negative or not required by law. The above report was generated using voice recognition software. It may contain grammatical, syntax o r spelling errors. Electronically signed by: Michael Macias M.D. 06/21/2020 9:17 AM
--- NOTE | 2020-06-21 09:59 | Surgery Progress Note ---
Date of Service June 21, 2020 Assessment & Plan (1) Dilatation of colon: continue decompression KUB without much change taking po well good drainage from rectal tube no surgical intervention warranted yet Admission and Anticipated Discharge Date Admission Date: June 13, 2020 Subjective Rectal tube working well No abdominal pain Taking po well Didn't sleep well Review of Systems Constitutional: no fever and no chills Respiratory: no cough and no dyspnea Cardiovascular: no chest pain Gastrointestinal: + diarrhea/loose stools; no abdominal pain, no nausea and no vomiting Musculoskeletal: + muscle weakness left arm with abrasions/ecchymosis Integumentary: + change in skin color and + unusual bruising Physical Exam Constitutional: well developed and well nourished; no acute distress Neck: trachea midline Respiratory: normal respiratory effort, lungs clear to auscultation no respiratory distress Cardiovascular: RRR, no murmur, no edema Gastrointestinal (Abdomen): Inspection/Auscultation: abdomen normal to inspection, + abdomen distended and normal bowel sounds; no visible herniation Percussion/Palpation: abdomen soft; abdomen nontender, no guarding and abdomen not rigid Musculoskeletal: Head/Neck/Chest: normocephalic and head atraumatic Skin: + ecchymosis Psychiatric: Orientation: alert and oriented x 3 Results & Data ([facility]) Vital Signs (Past 12 Hours) Vital Signs Temp Pulse Pulse Resp BP Pulse Ox 06/21/20 08:41 36.5 C 63 18 138/79 99 06/21/20 07:18 77 20 94 06/21/20 03:00 35.9 C L 63 16 129/75 95 06/21/20 02:16 64 27 H 95 06/20/20 23:22 36.5 C 60 18 138/78 94 06/20/20 22:20 63 20 93 Diagnostic Findings KUB HISTORY: Abdominal distention with rectal tube eval bowel distention, s/p colonic decompression COMPARISON: KUB 06/20/2020 FINDINGS: A rectal tube is again noted coiled within the rectum and projected superiorly with distal tip in the left midabdomen, likely within the tortuous sigmoid colon. There is persistent gaseous distention of the large bowel which measures up to approximately 8.9 cm transversely which has not significantly changed from comparison. Air-filled mildly distended loops of small bowel are also noted. No renal calculi. No ureteral calculi. No pneumoperitoneum or pneumatosis. No fracture. IMPRESSION: Rectal tube terminates in the left midabdomen, likely within the redundant sigmoid colon. There is persistent gaseous distention of the large and small bowel. No significant change from yesterday's exam.
[2020-06-21 10:24] LABS: Hematocrit (blood only) 38.1 % (42-52); Hemoglobin 12.2 g/dL (14.0-18.0); Mean Corpuscular Hemoglobin 29.5 pg (25-34); Mean Platelet Volume 9.8 fL (7.4-10.4); Platelet Count 174 K/uL (130-400); RDW Standard Deviation 50.9 fL (36.4-46.3); Red Blood Count 4.14 M/uL (4.7-6.1); White Blood Count 13.17 K/uL (4.8-10.8)
[2020-06-21 10:57] LABS: BUN Creatinine Ratio 29.2 (10-20); Calcium 8.8 mg/dl (8.5-10.1); Creatinine Clr Calc Pharmacy 107.7 ml/min; Est GFR (African American) 96.5; Est GFR (Non-African American) 83.3; Magnesium 1.7 mg/dl (1.8-2.4); Phosphorus 1.8 mg/dl (2.5-4.9); Potassium 3.8 mmol/L (3.5-5.1)
[2020-06-21] MEDS ORDERED: POTASSIUM PHOS 3 MMOL/1 ML INFUSION IV STA (12:53)
[2020-06-21] MEDS ORDERED: POTASSIUM PHOSPHATE 21 MMOL in SODIUM CHLORIDE 0.9% 500 ML IV ONE (13:30)
--- NOTE | 2020-06-21 13:43 | Hospitalist Progress Note ---
Date of Service June 21, 2020 Assessment & Plan (1) Constipation: Present on admission with abdominal discomfort and distended CT abd/pelvis showed marked colonic and moderate small bowel dilatation due to to a large amount of stool within the distal sigmoid colon and rectum which results in a functional colonic obstruction. Repeat KUB showed no change in the distended and stool-filled large and small bowel. GI on board smog enemas or soap kurtis enema bowel prep was given Surgery on board no indication for any surgical intervention Pt has been having numerous bowel movement Diet advanced as tolerated GI recommended MiraLAX 17 g 1-2 times daily Will keep K > 4 and Mg > 2 to facilitate bowel motility GI recommended outpatient colonoscopy, pt would think about it before scheduling it Continue monitor closely 06/18 patient still requiring supplemental oxygen today, which is different from his baseline, imaging obtained. Also procalcitonin elevated at 7. KUB was obtained as well, as it shows significant dilatation of bowels. NG tube tried to be placed overnight several times, however unsuccessful. Patient then declined further attempts. Sigmoid volvulus 06/19 KUB was repeated this morning shows progressive markedly distended large/small bowel with sigmoid colon measuring up to 16 cm in diameter, concerning for sigmoid volvulus. Surgery and GI contacted. Surgery recommends GI for colonic decompression. Plan for urgent colonoscopy/ colonic decompression by Dr. Rutherford. Patient underwent colonic decompression with Dr. Rutherford, from GI. It is recommended that patient then has surgery. Discussed in detail with surgical service, and they feel that there is no urgency to surgery at this point, if surgery needed it would be done here, no need for tertiary care center. Recommend to start on liquid diet. This was also discussed in detail with patient and his daughter, who are in agreement, to follow with surgery here for now. (2) Acute kidney failure: Creatinine on admission 1.6, then worsening to 2.9, now down to 1.1 Renal u/s showed No definite hydronephrosis. study was difficult Creatinine normalized Nephrology on board, appreciate their input, pt was on Lasix 60 mg IV BID Avoid nephrotoxic agents Continue monitor BMP Follow up with nephrology on discharge (3) High serum lactate: Possible related to respiratory hypoxia vs sepsis vs LIZZ Pt has been afebrile Doubt sepsis CT abd/pelvis showed no free air. Marked colonic and moderate small bowel di latation due to to a large amount of stool within the distal sigmoid colon and rectum which results in a functional colonic obstruction. IVF was discontinued due to mild pulmonary edema and worsening hypoxia Blood cx no growth Lactic acid normalized at 1.3 Procalcitonin elevated at 7 (06/18), now trending down Continue zosyn, add doxy obtain blood cultx CT PE ordered for further eval - no PE, poss. However extensive bilateral lower lobe airspace opacities c/w atelectasis, poss. pna. Additional groundglass opacities within the lungs could reflect an infectious process or pulmonary edema. Dilatation of the central pulmonary arteries suggest pulmonary arterial hypertension. KUB also obtained, show significant dilatation of the bowel, now concern for sigmoid volvulus as above. (4) Diastolic CHF, chronic: Last echocardiogram was completed on 06/22/2018, showing EF of 65 to 70%, concentric LVH, grade 1 diastolic dysfunction CXR showed Mild interstitial pulmonary edema, unchanged. IVF was discontinued due to worsening SOB Continue to hold Bumex Continued Lasix IV 60mg BID as per nephrology Continue oxygen supplement (5) Elevated d-dimer: D-Dimer 1070 PT had elevated d-dimer in the past Doppler of LE extremities showed no DVT unable to get a CTA chest to r/o PE due to elevate creatinine on admission Considered to get a V/Q scan, doubt that will help since pt has hx COPD with interstitial changes Cr normalized,obtained CT PE (06/18) - negative for PE (6) HTN (hypertension): BP stable Continue to hold amlodipine (7) Dyslipidemia: Continue statin therapy, had held this several weeks ago for a trial to see if this was causing muscle weakness/pain, but has restarted it at this point (8) COPD (chronic obstructive pulmonary disease): Patient wears BiPAP at night with 4L O2, Continue BIpap for now (9) Obesity hypoventilation syndrome: - Hx of such (10) Chronic respiratory failure with hypercapnia: (11) Hypoxia: CXR showed progressive perihilar interstitial/vascular thickening suggestive of mild pulmonary edema. ABG showed pH 7.32, PCO2 65, P02 74 HCO3 33 Patient wears BiPAP at night with 4L O2 at baseline Worsening hypoxia Unable to get a CTA chest to r/o PE Has been off bipap, now on nasal canula Consider to get a CT chest without contrast if no improvement Will continue wean off oxygen Clinically improved Cr now normalized, obtained CT PE (06/18) - no PE, poss. However extensive bilateral lower lobe airspace opacities c/w atelectasis, poss. pna. Additional groundglass opacities within the lungs could reflect an infectious process or pulmonary edema. Dilatation of the central pulmonary arteries suggest pulmonary arterial hypertension. Cont. zosyn, doxy, for now Incentive spirometer, flutter valve, guaifenesin if pt can take PO (12) Obesity: -BMI of 37.6 (13) Hypothyroidism: Cont levothyroxine 175 mcg daily (14) Gout: -Cont colchicine 0.6 mg daily (15) Sleep apnea: Continue bipap as above (16) DVT prophylaxis: scds/heparin subq CODE: DNR/DNI Disposition: transferred to medical Admission and Anticipated Discharge Date Admission Date: June 13, 2020 Subjective Pt was seen and examined for follow up of hypoxia and abdominal discomfort, sigmoid volvulus Lying in bed in no distress however appears very fatigued He continues to require suppl. O2 Denies any chest pain, palpitation, dizziness and fever Procalcitonin elevated, therefore cont. zosyn, add doxy Underwent colonic decompression with GI, for sigmoid volvulus Per GI, recommendation for surgery Per surgical service, will await for now, and if surgery needed it can be done here, do not feel need for a tertiary care center This was in detail discussed with patient and his daughter Soniya, and they feel that for now they will follow with surgery here. Started patient on full liquid diet. KUB this AM unchanged Rectal tube in place Review of Systems Review of Systems: All systems reviewed & are unremarkable except as noted in HPI & below Constitutional: + weakness (generalized (slightly improved)); no fever and no chills Respiratory: + cough (occasional); no dyspnea (but remains on suppl. O2) Cardiovascular: no chest pain and no palpitations Gastrointestinal: no abdominal pain, no nausea and no vomiting Physical Exam Physical Exam: General- Elderly obese frail male laying in bed in no acute distress, on suppl. O2 4L Head- normocephalic, atraumatic Eyes- PERRL, EOMI, ENT- oropharynx clear Neck- supple, no JVD Lungs- decrease BS, Difficult lung exam as patient is very weak to move Heart- regular rhythm; no murmur Abdomen- nontender, obese, soft, + distended, sluggish bowel sounds Extremities- no calf tenderness, +edema Neuro- alert, oriented x 3; PERRL, EOMI; no facial palsy; no dysarthria, +generalized weakness Skin- warm & dry Results & Data Results & Data ([facility]) Vital Signs (Past 12 Hours) Vital Signs Temp Pulse Pulse Resp BP Pulse Ox 06/21/20 07:18 77 20 94 06/21/20 03:00 35.9 C L 63 16 129/75 95 06/21/20 02:16 64 27 H 95 06/20/20 23:22 36.5 C 60 18 138/78 94 06/20/20 22:20 63 20 93 Laboratory Results 06/21/20 06/21/20 06/21/20 Range/Units 10:12 10:12 10:12 WBC 13.17 H (4.8-10.8) K/uL RBC 4.14 L (4.7-6.1) M/uL Hgb 12.2 L (14.0-18.0) g/dL Hct 38.1 L (42-52) % MCV 92.0 (80-100) fL MCH 29.5 (25-34) pg MCHC 32.0 (32-36) g/dL RDW Std Deviation 50.9 H (36.4-46.3) fL RDW Coeff of Maximilian 15.0 H (11.5-14.5) % Plt Count 174 (130-400) K/uL MPV 9.8 (7.4-10.4) fL Sodium 142 (136-145) mmol/L Potassium 3.8 (3.5-5.1) mmol/L Chloride 102 (98-107) mmol/L Carbon Dioxide 34 H (21-32) mmol/L Anion Gap 6.0 (3-11) BUN 24 H (7-18) mg/dl Creatinine 0.84 (0.6-1.4) mg/dl Est Cr Clr Drug Dosing 107.7 ml/min Est GFR ( Amer) 96.5 Est GFR (Non-Af Amer) 83.3 BUN/Creatinine Ratio 29.2 H (10-20) Glucose 132 H (70-99) mg/dl Calcium 8.8 (8.5-10.1) mg/dl Phosphorus 1.8 L (2.5-4.9) mg/dl Magnesium 1.7 L (1.8-2.4) mg/dl Procalcitonin 0.60 H (0-0.5) ng/ml Medications Administered Current Inpatient Medications Acetaminophen (Acetaminophen 325 Mg Tab) 650 mg PO Q4H PRN PRN Reason: Moderate Pain Stop: 07/13/20 18:19 Acetaminophen (Acetaminophen 1000 Mg/100 Ml Iv) 1,000 mg IV Q8H PRN PRN Reason: Pain or Fever Stop: 06/22/20 16:49 Last Admin: 06/21/20 00:17 Dose: 1,000 mg Documented by: Amlodipine Besylate (Amlodipine Besylate 5 Mg Tab) [facility] Stop: 07/14/20 08:59 Last Admin: 06/14/20 11:20 Dose: 5 mg Documented by: Aspirin (Aspirin 81 Mg Ectab) 81 mg PO QAM [facility] Stop: 07/14/20 08:59 Last Admin: 06/21/20 08:52 Dose: 81 mg Documented by: Calcium Carbonate (Calcium Carbonate 500 Mg Chewable Tab) 500 mg PO BID PRN PRN Reason: gerd Stop: 07/13/20 18:19 Last Admin: 06/15/20 18:12 Dose: 500 mg Documented by: Doxycycline Hyclate (Doxycycline Hyclate 100 Mg Cap) 100 mg PO BID [facility] Stop: 06/25/20 08:59 Last Admin: 06/19/20 13:12 Dose: Not Given Documented by: Guaifenesin (Guaifenesin 600 Mg Tabcr) 600 mg PO Q12 [facility] Stop: 07/19/20 08:59 Last Admin: 06/21/20 08:51 Dose: 600 mg Documented by: Heparin Sodium (Porcine) (Heparin Sod 5,000 Unit/0.5 Ml Vial) 5,000 units SQ Q12 [facility] Stop: 07/13/20 20:59 Last Admin: 06/21/20 08:57 Dose: 5,000 units Documented by: Piperacillin Sod/Tazobactam (Sod 4.5 gm/ Dextrose) 120 mls @ 30 mls/hr IV Q8H [facility]; Protocol Stop: 06/25/20 13:59 Last Infusion: 06/21/20 10:10 Dose: Infused Documented by: Doxycycline Hyclate 100 mg/ (Dextrose) 110 mls @ 50 mls/hr IV Q12H [facility] Stop: 06/26/20 16:59 Last Infusion: 06/21/20 08:53 Dose: Infused Documented by: Levothyroxine Sodium 131 mcg/ (Syringe) 6.55 mls @ 3.275 mls/min IV Q72H [facility] Stop: 07/22/20 06:29 Potassium Chloride 40 meq/ (Dextrose) 1,020 mls @ 80 mls/hr IV .[id number] [facility] Stop: 07/20/20 14:59 Last Admin: 06/21/20 06:01 Dose: 80 mls/hr Documented by: Potassium Phosphate 21 mmol/ (Sodium Chloride) 507 mls @ 88 mls/hr IV ONE ONE Stop: 06/21/20 19:15 Ipratropium [place] (Ipratropium [place] Neb Soln 0.02% 2.5 Ml Vial) 0.5 mg INH BIDR [facility] Stop: 07/18/20 18:59 Last Admin: 06/21/20 07:18 Dose: 0.5 mg Documented by: Ipratropium [place] (Ipratropium [place] Neb Soln 0.02% 2.5 Ml Vial) 0.5 mg INH Q6R PRN PRN Reason: Shortness Of Breath Or Wheezing Stop: 07/18/20 22:29 Levalbuterol HCl (Levalbuterol 1.25mg/0.5ml Neb) 1.25 mg INH BIDR [facility] Stop: 07/18/20 18:59 Last Admin: 06/21/20 07:18 Dose: 1.25 mg Documented by: Levalbuterol HCl (Levalbuterol 1.25mg/0.5ml Neb) 1.25 mg INH Q6R PRN PRN Reason: Shortness Of Breath Or Wheezing Stop: 07/19/20 00:59 Levothyroxine Sodium (Levothyroxine Sodium 175 Mcg Tablet) 175 mcg PO DAILYBB [facility] Stop: 07/14/20 06:29 Last Admin: 06/21/20 06:01 Dose: 175 mcg Documented by: Menthol (Cough Drop (Sugar Free) Charla 24 Charla/1 Box) 1 charla BUCCAL NOW PRN PRN Reason: Sore Throat Stop: 07/17/20 22:31 Miscellaneous Information (Piperacill/Tazobac Consult Active) 1 ea N/A UD PRN PRN Reason: Consult Stop: 07/18/20 08:37 Prolensa~Non- Formulary Patient's Own Med 1 ea OP BID YOSSI Stop: 07/14/20 08:59 Last Admin: 06/21/20 09:02 Dose: Not Given Documented by: Durezol~Non- Formulary Patient's Own Med 1 ea OP BID YOSSI Stop: 07/14/20 08:59 Last Admin: 06/21/20 09:02 Dose: Not Given Documented by: Polyethylene Glycol (Polyethylene (Miralax) 17 Gm Pack) 17 gm PO BID YOSSI Stop: 07/18/20 12:14 Last Admin: 06/19/20 09:14 Dose: Not Given Documented by: Polyethylene Glycol/Electrolytes (Lavage Solution 4000ml) 0.4 dose AL Q2H YOSSI Stop: 06/22/20 18:01 Last Admin: 06/21/20 12:12 Dose: 0.4 dose Documented by: Potassium Chloride (Potassium Chloride Crtab 20 Meq Tabcr) 20 meq PO QAM YOSSI Stop: 07/22/20 08:59 Potassium Phosphate (Pot Phosphate Monobasic W/ Sod Tab) 1 tab PO QID YOSSI Stop: 07/19/20 08:59 Last Admin: 06/19/20 15:49 Dose: Not Given Documented by: Simvastatin (Simvastatin 20 Mg Tab) 20 mg PO HS [facility] Stop: 07/13/20 20:59 Last Admin: 06/18/20 22:49 Dose: 20 mg Documented by: Vitamin D (Cholecalciferol 1,000 Units 25 Mcg Tab) 1,000 units PO QAM YOSSI Stop: 07/14/20 08:59 Last Admin: 06/19/20 13:12 Dose: Not Given Documented by: (1) Acute kidney failure Acute renal failure type: unspecified Qualified Code(s): N17.9 - Acute kidney failure, unspecified
[2020-06-21] MEDS: POT PHOSPHATE MONOBASIC W/ SOD TAB PO SCH ×3 (15:17→21:32)
--- NOTE | 2020-06-21 17:44 | Post Operative Brief Note ---
Immediate Post Op Note v1 Date of Surgery June 21, 2020 Pre & Post Diagnosis Operation Date: 06/19/20 16:30 Pre-Op Diagnosis: CONSTIPATION Post-Op Diagnosis: Colon decompression with tube placement I identified the patient and participated in the time-out.: Yes Procedure Operation Date: 06/19/20 16:30 Actual Procedures p Colonoscopy with Decompression Tube Jody Rutherford DO Surgeon Baljinder Sandoval MD Director Digital Sales none Estimated Blood Loss 4 Findings Consistent with Post-Op Diagnosis
[2020-06-22] MEDS: LAVAGE SOLUTION 4000ML PR SCH ×10 (00:59→17:16)
[2020-06-22] MEDS: POTASSIUM CHLORIDE 40 MEQ in DEXTROSE 5% 1,000 ML IV SCH ×2 (05:00→17:16)
[2020-06-22] MEDS: DOXYCYCLINE HYCLATE 100 MG in DEXTROSE 5% 100 ML IV SCH ×2 (05:01→17:15)
[2020-06-22] MEDS: PIPERACILLIN/TAZOBACTAM 4.5 GM in DEXTROSE 5% 100 ML IV SCH ×3 (06:14→21:52)
[2020-06-22] MEDS: LEVOTHYROXINE SODIUM 175 MCG TABLET PO SCH (06:21)
[2020-06-22] MEDS ORDERED: LEVOTHYROXINE SODIUM IV SCH (06:30)
[2020-06-22] MEDS: LEVALBUTEROL 1.25MG/0.5ML NEB INH SCH ×2 (07:25→19:30)
[2020-06-22] MEDS: IPRATROPIUM BROMIDE NEB SOLN 0.02% 2.5 ML VIAL INH SCH ×2 (07:25→19:30)
[2020-06-22] MEDS: guaiFENesin 600 MG TABCR PO SCH ×2 (08:11→21:46)
[2020-06-22] MEDS: POTASSIUM CHLORIDE CRTAB 20 MEQ TABCR PO SCH (08:11)
[2020-06-22] MEDS: ASPIRIN 81 MG ECTAB PO SCH (08:11)
[2020-06-22] MEDS: POT PHOSPHATE MONOBASIC W/ SOD TAB PO SCH ×4 (08:11→21:45)
[2020-06-22] MEDS: PROLENSA OP SCH ×2 (08:11→21:06)
[2020-06-22] MEDS: DUREZOL OP SCH ×2 (08:11→21:06)
[2020-06-22] MEDS: HEPARIN SOD 5,000 UNIT/0.5 ML VIAL SQ SCH ×2 (08:11→21:50)
[2020-06-22 08:27] LABS: BUN Creatinine Ratio 29.8 (10-20); Calcium 8.8 mg/dl (8.5-10.1); Creatinine Clr Calc Pharmacy 138.1 ml/min; Est GFR (African American) 106.6; Magnesium 1.7 mg/dl (1.8-2.4)
[2020-06-22 08:29] LABS: Phosphorus 3.2 mg/dl (2.5-4.9)
--- NOTE | 2020-06-22 09:03 | Hospitalist Progress Note ---
Date of Service June 22, 2020 Assessment & Plan (1) Constipation: Present on admission with abdominal discomfort and distended CT abd/pelvis showed marked colonic and moderate small bowel dilatation due to to a large amount of stool within the distal sigmoid colon and rectum which results in a functional colonic obstruction. Repeat KUB showed no change in the distended and stool-filled large and small bowel. GI on board smog enemas or soap kurtis enema bowel prep was given Surgery on board no indication for any surgical intervention Pt has been having numerous bowel movement Diet advanced as tolerated GI recommended MiraLAX 17 g 1-2 times daily Will keep K > 4 and Mg > 2 to facilitate bowel motility GI recommended outpatient colonoscopy, pt would think about it before scheduling it Continue monitor closely 06/18 patient still requiring supplemental oxygen today, which is different from his baseline, imaging obtained. Also procalcitonin elevated at 7. KUB was obtained as well, as it shows significant dilatation of bowels. NG tube tried to be placed overnight several times, however unsuccessful. Patient then declined further attempts. Sigmoid volvulus 06/19 KUB was repeated this morning shows progressive markedly distended large/small bowel with sigmoid colon measuring up to 16 cm in diameter, concerning for sigmoid volvulus. Surgery and GI contacted. Surgery recommends GI for colonic decompression. Plan for urgent colonoscopy/ colonic decompression by Dr. Rutherford. Patient underwent colonic decompression with Dr. Rutherford, from GI. It is recommended that patient then has surgery. Discussed in detail with surgical service, and they feel that there is no urgency to surgery at this point, if surgery needed it would be done here, no need for tertiary care center. Recommend to start on liquid diet. This was also discussed in detail with patient and his daughter, who are in agreement, to follow with surgery here for now. 06/22 repeat KUB essentially unchanged, surgery closely following Patient currently sitting up in the chair, for the first time, however continues to be fatigued and using supplemental oxygen Rectal tube in place (2) Acute kidney failure: Creatinine on admission 1.6, then worsening to 2.9, now down to 1.1 Renal u/s showed No definite hydronephrosis. study was difficult Creatinine normalized Nephrology on board, appreciate their input, pt was on Lasix 60 mg IV BID Avoid nephrotoxic agents Continue monitor BMP Follow up with nephrology on discharge (3) High serum lactate: Possible related to respiratory hypoxia vs sepsis vs LIZZ Pt has been afebrile Doubt sepsis CT abd/pelvis showed no free air. Marked colonic and moderate small bowel dilatation due to to a large amount of stool within the distal sigmoid colon and rectum which results in a functional colonic obstruction. IVF was discontinued due to mild pulmonary edema and worsening hypoxia Blood cx no growth Lactic acid normalized at 1.3 Procalcitonin elevated at 7 (06/18), now trending down Continue zosyn, add doxy obtain blood cultx CT PE ordered for further eval - no PE, poss. However extensive bilateral lower lobe airspace opacities c/w atelectasis, poss. pna. Additional groundglass opacities within the lungs could reflect an infectious process or pulmonary edema. Dilatation of the central pulmonary arteries suggest pulmonary arterial hypertension. KUB also obtained, show significant dilatation of the bowel, now concern for sigmoid volvulus as above. (4) Diastolic CHF, chronic: Last echocardiogram was completed on 06/22/2018, showing EF of 65 to 70%, concentric LVH, grade 1 diastolic dysfunction CXR showed Mild interstitial pulmonary edema, unchanged. IVF was discontinued due to worsening SOB Continue to hold Bumex Continued Lasix IV 60mg BID as per nephrology Continue oxygen supplement (5) Elevated d-dimer: D-Dimer 1070 PT had elevated d-dimer in the past Doppler of LE extremities showed no DVT unable to get a CTA chest to r/o PE due to elevate creatinine on admission Considered to get a V/Q scan, doubt that will help since pt has hx COPD with interstitial changes Cr normalized,obtained CT PE (06/18) - negative for PE (6) HTN (hypertension): BP stable Continue to hold amlodipine (7) Dyslipidemia: Continue statin therapy, had held this several weeks ago for a trial to see if this was causing muscle weakness/pain, but has restarted it at this point (8) COPD (chronic obstructive pulmonary disease): Patient wears BiPAP at night with 4L O2, Continue BIpap for now (9) Obesity hypoventilation syndrome: - Hx of such (10) Chronic respiratory failure with hypercapnia: (11) Hypoxia: CXR showed progressive perihilar interstitial/vascular thickening suggestive of mild pulmonary edema. ABG showed pH 7.32, PCO2 65, P02 74 HCO3 33 Patient wears BiPAP at night with 4L O2 at baseline Worsening hypoxia Unable to get a CTA chest to r/o PE Has been off bipap, now on nasal canula Consider to get a CT chest without contrast if no improvement Will continue wean off oxygen Clinically improved Cr now normalized, obtained CT PE (06/18) - no PE, poss. However extensive bilateral lower lobe airspace opacities c/w atelectasis, poss. pna. Additional groundglass opacities within the lungs could reflect an infectious process or pulmonary edema. Dilatation of the central pulmonary arteries suggest pulmonary arterial hypertension. Cont. zosyn, doxy, for now Incentive spirometer, flutter valve, guaifenesin if pt can take PO (12) Obesity: -BMI of 37.6 (13) Hypothyroidism: Cont levothyroxine 175 mcg daily (14) Gout: -Cont colchicine 0.6 mg daily (15) Sleep apnea: Continue bipap as above (16) DVT prophylaxis: scds/heparin subq CODE: DNR/DNI Disposition: transferred to medical Admission and Anticipated Discharge Date Admission Date: June 13, 2020 Subjective Pt was seen and examined for follow up of hypoxia and abdominal discomfort, sigmoid volvulus Pt is sitting up in chair (for the first time) however appears very fatigued He continues to require suppl. O2 Denies any chest pain, palpitation, dizziness and fever Underwent colonic decompression with GI, for sigmoid volvulus Per GI, recommendation for surgery Per surgical service, will await for now, and if surgery needed it can be done here, do not feel need for a tertiary care center This was in detail discussed with patient and his daughter Soniya, and they feel that for now they will follow with surgery here. Started patient on full liquid diet. repeat KUB essentially unchanged Rectal tube in place Review of Systems Review of Systems: All systems reviewed & are unremarkable except as noted in HPI & below Constitutional: + weakness (generalized (slightly improved)); no fever and no chills Respiratory: + cough (occasional); no dyspnea (but remains on suppl. O2) Cardiovascular: no chest pain and no palpitations Gastrointestinal: no abdominal pain, no nausea and no vomiting Physical Exam 2 Physical Exam: General- Elderly obese frail male laying in bed in no acute distress, on suppl. O2 4L Head- normocephalic, atraumatic Eyes- PERRL, EOMI, ENT- oropharynx clear Neck- supple, no JVD Lungs- mild rhonchi noted, no wheezing Heart- regular rhythm; no murmur Abdomen- nontender, obese, soft, + distended, +hypoactive bowel sounds Extremities- no calf tenderness, +edema Neuro- alert, oriented x 3; PERRL, EOMI; no facial palsy; no dysarthria, +generalized weakness Skin- warm & dry Results & Data Results & Data ([facility]) Vital Signs (Past 12 Hours) Vital Signs Temp Pulse Pulse Resp BP Pulse Ox 06/22/20 08:35 63 06/22/20 07:39 36.8 C 75 18 135/74 97 06/22/20 07:26 77 18 94 06/22/20 03:55 36.9 C 69 18 140/76 91 06/22/20 03:27 70 20 96 06/21/20 23:42 70 06/21/20 23:07 36.6 C 64 18 119/64 95 06/21/20 22:05 82 18 98 Laboratory Results 06/22/20 06/21/20 06/21/20 Range/Units 07:42 10:12 10:12 WBC 13.17 H (4.8-10.8) K/uL RBC 4.14 L (4.7-6.1) M/uL Hgb 12.2 L (14.0-18.0) g/dL Hct 38.1 L (42-52) % MCV 92.0 (80-100) fL MCH 29.5 (25-34) pg MCHC 32.0 (32-36) g/dL RDW Std Deviation 50.9 H (36.4-46.3) fL RDW Coeff of Maximilian 15.0 H (11.5-14.5) % Plt Count 174 (130-400) K/uL MPV 9.8 (7.4-10.4) fL Sodium 140 (136-145) mmol/L Potassium 4.0 (3.5-5.1) mmol/L Chloride 103 (98-107) mmol/L Carbon Dioxide 34 H (21-32) mmol/L Anion Gap 2.0 L (3-11) BUN 20 H (7-18) mg/dl Creatinine 0.66 (0.6-1.4) mg/dl Est Cr Clr Drug Dosing 138.1 ml/min Est GFR ( Amer) 106.6 Est GFR (Non-Af Amer) 92.0 BUN/Creatinine Ratio 29.8 H (10-20) Glucose 100 H (70-99) mg/dl Calcium 8.8 (8.5-10.1) mg/dl Phosphorus 3.2 D (2.5-4.9) mg/dl Magnesium 1.7 L (1.8-2.4) mg/dl Procalcitonin 0.60 H (0-0.5) ng/ml 06/21/20 Range/Units 10:12 WBC (4.8-10.8) K/uL RBC (4.7-6.1) M/uL Hgb (14.0-18.0) g/dL Hct (42-52) % MCV (80-100) fL MCH (25-34) pg MCHC (32-36) g/dL RDW Std Deviation (36.4-46.3) fL RDW Coeff of Maximilian (11.5-14.5) % Plt Count (130-400) K/uL MPV (7.4-10.4) fL Sodium 142 (136-145) mmol/L Potassium 3.8 (3.5-5.1) mmol/L Chloride 102 (98-107) mmol/L Carbon Dioxide 34 H (21-32) mmol/L Anion Gap 6.0 (3-11) BUN 24 H (7-18) mg/dl Creatinine 0.84 (0.6-1.4) mg/dl Est Cr Clr Drug Dosing 107.7 ml/min Est GFR ( Amer) 96.5 Est GFR (Non-Af Amer) 83.3 BUN/Creatinine Ratio 29.2 H (10-20) Glucose 132 H (70-99) mg/dl Calcium 8.8 (8.5-10.1) mg/dl Phosphorus 1.8 L (2.5-4.9) mg/dl Magnesium 1.7 L (1.8-2.4) mg/dl Procalcitonin (0-0.5) ng/ml Medications Administered Current Inpatient Medications Acetaminophen (Acetaminophen 325 Mg Tab) 650 mg PO Q4H PRN PRN Reason: Moderate Pain Stop: 07/13/20 18:19 Acetaminophen (Acetaminophen 1000 Mg/100 Ml Iv) 1,000 mg IV Q8H PRN PRN Reason: Pain or Fever Stop: 06/22/20 16:49 Last Admin: 06/21/20 00:17 Dose: 1,000 mg Documented by: Amlodipine Besylate (Amlodipine Besylate 5 Mg Tab) [facility] [place] Stop: 07/14/20 08:59 Last Admin: 06/14/20 11:20 Dose: 5 mg Documented by: Aspirin (Aspirin 81 Mg Ectab) 81 mg PO QAM [facility] Stop: 07/14/20 08:59 Last Admin: 06/22/20 08:11 Dose: 81 mg Documented by: Calcium Carbonate (Calcium Carbonate 500 Mg Chewable Tab) 500 mg PO BID PRN PRN Reason: gerd Stop: 07/13/20 18:19 Last Admin: 06/15/20 18:12 Dose: 500 mg Documented by: Doxycycline Hyclate (Doxycycline Hyclate 100 Mg Cap) 100 mg PO BID [facility] Stop: 06/25/20 08:59 Last Admin: 06/19/20 13:12 Dose: Not Given Documented by: Guaifenesin (Guaifenesin 600 Mg Tabcr) 600 mg PO Q12 [facility] Stop: 07/19/20 08:59 Last Admin: 06/22/20 08:11 Dose: 600 mg Documented by: Heparin Sodium (Porcine) (Heparin Sod 5,000 Unit/0.5 Ml Vial) 5,000 units SQ Q12 [facility] Stop: 07/13/20 20:59 Last Admin: 06/22/20 08:11 Dose: 5,000 units Documented by: Piperacillin Sod/Tazobactam (Sod 4.5 gm/ Dextrose) 120 mls @ 30 mls/hr IV Q8H [facility]; Protocol Stop: 06/25/20 13:59 Last Admin: 06/22/20 06:14 Dose: 30 mls/hr Documented by: Doxycycline Hyclate 100 mg/ (Dextrose) 110 mls @ 50 mls/hr IV Q12H [facility] Stop: 06/26/20 16:59 Last Infusion: 06/22/20 07:21 Dose: Infused Documented by: Potassium Chloride 40 meq/ (Dextrose) 1,020 mls @ 80 mls/hr IV .[id number] [facility] Stop: 07/20/20 14:59 Last Admin: 06/22/20 05:00 Dose: 80 mls/hr Documented by: Magnesium Sulfate/Dextrose (Magnesium Sulfate / D5w) 1 gm in 100 mls @ 50 mls/hr IV Q2H STA Stop: 06/22/20 10:59 Ipratropium Whe[place] (Ipratropium [place] Neb Soln 0.02% 2.5 Ml Vial) 0.5 mg INH BIDR [facility] Stop: 07/18/20 18:59 Last Admin: 06/22/20 07:25 Dose: 0.5 mg Documented by: Ipratropium [place] (Ipratropium [place] Neb Soln 0.02% 2.5 Ml Vial) 0.5 mg INH Q6R PRN PRN Reason: Shortness Of Breath Or Wheezing Stop: 07/18/20 22:29 Levalbuterol HCl (Levalbuterol 1.25mg/0.5ml Neb) 1.25 mg INH BIDR [facility] Stop: 07/18/20 18:59 Last Admin: 06/22/20 07:25 Dose: 1.25 mg Documented by: Levalbuterol HCl (Levalbuterol 1.25mg/0.5ml Neb) 1.25 mg INH Q6R PRN PRN Reason: Shortness Of Breath Or Wheezing Stop: 07/19/20 00:59 Levothyroxine Sodium (Levothyroxine Sodium 175 Mcg Tablet) 175 mcg PO DAILYBB [facility] Stop: 07/14/20 06:29 Last Admin: 06/22/20 06:21 Dose: 175 mcg Documented by: Menthol (Cough Drop (Sugar Free) Charla 24 Charla/1 Box) 1 charla BUCCAL NOW PRN PRN Reason: Sore Throat Stop: 07/17/20 22:31 Miscellaneous Information (Piperacill/Tazobac Consult Active) 1 ea N/A UD PRN PRN Reason: Consult Stop: 07/18/20 08:37 Prolensa~Non- Formulary Patient's Own Med 1 ea OP BID [facility] Stop: 07/14/20 08:59 Last Admin: 06/22/20 08:11 Dose: Not Given Documented by: Durezol~Non- Formulary Patient's Own Med 1 ea OP BID [facility] Stop: 07/14/20 08:59 Last Admin: 06/22/20 08:11 Dose: Not Given Documented by: Polyethylene Glycol (Polyethylene (Miralax) 17 Gm Pack) 17 gm PO BID YOSSI Stop: 07/18/20 12:14 Last Admin: 06/19/20 09:14 Dose: Not Given Documented by: Polyethylene Glycol/Electrolytes (Lavage Solution 4000ml) 0.4 dose AR Q2H YOSSI Stop: 06/22/20 18:01 Last Admin: 06/22/20 08:11 Dose: 0.4 dose Documented by: Potassium Chloride (Potassium Chloride Crtab 20 Meq Tabcr) 20 meq PO QAM YOSSI Stop: 07/22/20 08:59 Last Admin: 06/22/20 08:11 Dose: 20 meq Documented by: Potassium Phosphate (Pot Phosphate Monobasic W/ Sod Tab) 1 tab PO QID YOSSI Stop: 07/19/20 08:59 Last Admin: 06/22/20 08:11 Dose: 1 tab Documented by: Simvastatin (Simvastatin 20 Mg Tab) 20 mg PO HS YOSSI Stop: 07/13/20 20:59 Last Admin: 06/18/20 22:49 Dose: 20 mg Documented by: Vitamin D (Cholecalciferol 1,000 Units 25 Mcg Tab) 1,000 units PO QAM YOSSI Stop: 07/14/20 08:59 Last Admin: 06/19/20 13:12 Dose: Not Given Documented by: (1) Acute kidney failure Acute renal failure type: unspecified Qualified Code(s): N17.9 - Acute kidney failure, unspecified
--- NOTE | 2020-06-22 09:08 | XRay Report ---
XR KUB/Abdomen 1 view CLINICAL HISTORY: eval bowel distention, s/p colonic decompression COMPARISON STUDY: 06/21/2020 FINDINGS: There is a rectal inserted colonic tube, likely positioned within the sigmoid colon. There is persistent mild to moderate gaseous distention of the bowel. The transverse colon measures 84 mm i n diameter. Dilated small bowel loops are also evident. IMPRESSION: 1. The rectally inserted colonic tube appears positioned within the sigmoid colon 2. Persistent gaseous distention of large and small bowel loops. ACT 112: Negative or not required by law. Electronically signed by: Mike Thomas M.D. 06/22/2020 9:07 AM
--- NOTE | 2020-06-22 09:49 | Surgery Progress Note ---
Date of Service June 22, 2020 Assessment & Plan (1) Dilatation of colon: clinically stable tube working persistent bowel dilatation taking po well Admission and Anticipated Discharge Date Admission Date: June 13, 2020 Subjective no abdominal pain continues to move bowels rectal tube in place taking po well KUB shows no real progress with continued colon/SB distention Review of Systems Constitutional: no fever and no chills Respiratory: no dyspnea Cardiovascular: no chest pain Gastrointestinal: + diarrhea/loose stools; no abdominal pain, no nausea and no vomiting Physical Exam Constitutional: no acute distress Neck: trachea midline Respiratory: normal respiratory effort, lungs clear to auscultation Cardiovascular: RRR, no murmur, no edema Gastrointestinal (Abdomen): Inspection/Auscultation: abdomen normal to inspection, + abdomen distended and normal bowel sounds Percussion/Palpation: abdomen soft; abdomen nontender Results & Data ([facility]) Vital Signs (Past 12 Hours) Vital Signs Temp Pulse Pulse Resp BP Pulse Ox 06/22/20 08:35 63 06/22/20 07:39 36.8 C 75 18 135/74 97 06/22/20 07:26 77 18 94 06/22/20 03:55 36.9 C 69 18 140/76 91 06/22/20 03:27 70 20 96 06/21/20 23:42 70 06/21/20 23:07 36.6 C 64 18 119/64 95 06/21/20 22:05 82 18 98 Diagnostic Findings XR KUB/Abdomen 1 view CLINICAL HISTORY: eval bowel distention, s/p colonic decompression COMPARISON STUDY: 06/21/2020 FINDINGS: There is a rectal inserted colonic tube, likely positioned within the sigmoid colon. There is persistent mild to moderate gaseous distention of the bowel. The transverse colon measures 84 mm in diameter. Dilated small bowel loops are also evident. IMPRESSION: 1. The rectally inserted colonic tube appears positioned within the sigmoid colon 2. Persistent gaseous distention of large and small bowel loops.
[2020-06-22] MEDS: MAGNESIUM SULFATE / D5W 1 GM/100 ML BAG IV SCH ×2 (10:41→12:19)
[2020-06-23] MEDS: DOXYCYCLINE HYCLATE 100 MG in DEXTROSE 5% 100 ML IV SCH ×2 (05:08→16:33)
[2020-06-23] MEDS: POTASSIUM CHLORIDE 40 MEQ in DEXTROSE 5% 1,000 ML IV SCH (05:52)
[2020-06-23] MEDS: PIPERACILLIN/TAZOBACTAM 4.5 GM in DEXTROSE 5% 100 ML IV SCH ×3 (05:52→22:47)
[2020-06-23] MEDS: LEVOTHYROXINE SODIUM 175 MCG TABLET PO SCH (05:55)
[2020-06-23] MEDS: LEVALBUTEROL 1.25MG/0.5ML NEB INH SCH ×2 (07:35→19:34)
[2020-06-23] MEDS: IPRATROPIUM BROMIDE NEB SOLN 0.02% 2.5 ML VIAL INH SCH ×2 (07:35→19:33)
[2020-06-23 07:52] LABS: Hematocrit (blood only) 35.5 % (42-52); Hemoglobin 11.8 g/dL (14.0-18.0); Mean Corpuscular Hemoglobin 30.1 pg (25-34); Mean Corpuscular Hgb Conc 33.2 g/dL (32-36); Mean Corpuscular Volume 90.6 fL (80-100); Mean Platelet Volume 9.3 fL (7.4-10.4); Platelet Count 214 K/uL (130-400); RDW Coefficient of Variation 15.3 % (11.5-14.5); RDW Standard Deviation 51.1 fL (36.4-46.3); Red Blood Count 3.92 M/uL (4.7-6.1); White Blood Count 14.92 K/uL (4.8-10.8)
[2020-06-23] MEDS: HEPARIN SOD 5,000 UNIT/0.5 ML VIAL SQ SCH ×2 (07:59→21:36)
[2020-06-23] MEDS: guaiFENesin 600 MG TABCR PO SCH ×2 (07:59→21:20)
--- NOTE | 2020-06-23 07:59 | Hospitalist Progress Note ---
Date of Service June 23, 2020 Assessment & Plan (1) Constipation: Present on admission with abdominal discomfort and distended CT abd/pelvis showed marked colonic and moderate small bowel dilatation due to to a large amount of stool within the distal sigmoid colon and rectum which results in a functional colonic obstruction. Repeat KUB showed no change in the distended and stool-filled large and small bowel. GI on board smog enemas or soap kurtis enema bowel prep was given Surgery on board no indication for any surgical intervention Pt has been having numerous bowel movement Diet advanced as tolerated GI recommended MiraLAX 17 g 1-2 times daily Will keep K > 4 and Mg > 2 to facilitate bowel motility GI recommended outpatient colonoscopy, pt would think about it before scheduling it Continue monitor closely 06/18 patient still requiring supplemental oxygen today, which is different from his baseline, imaging obtained. Also procalcitonin elevated at 7. KUB was obtained as well, as it shows significant dilatation of bowels. NG tube tried to be placed overnight several times, however unsuccessful. Patient then declined further attempts. Sigmoid volvulus 06/19 KUB was repeated this morning shows progressive markedly distended large/small bowel with sigmoid colon measuring up to 16 cm in diameter, concerning for sigmoid volvulus. Surgery and GI contacted. Surgery recommends GI for colonic decompression. Plan for urgent colonoscopy/ colonic decompression by Dr. Rutherford. Patient underwent colonic decompression with Dr. Rutherford, from GI. It is recommended that patient then has surgery. Discussed in detail with surgical service, and they feel that there is no urgency to surgery at this point, if surgery needed it would be done here, no need for tertiary care center. Recommend to start on liquid diet. This was also discussed in detail with patient and his daughter, who are in agreement, to follow with surgery here for now. 06/22 repeat KUB essentially unchanged, surgery closely following Patient currently sitting up in the chair, for the first time, however continues to be fatigued and using supplemental oxygen Rectal tube in place 06/23 Patient has no complaints, no abdominal pain, surgical service following closely, not much improvement with colon distention monitored on KUB over the weekend. (2) Acute kidney failure: Creatinine on admission 1.6, then worsening to 2.9, now down to 1.1 Renal u/s showed No definite hydronephrosis. study was difficult Creatinine normalized Nephrology on board, appreciate their input, pt was on Lasix 60 mg IV BID Avoid nephrotoxic agents Continue monitor BMP Follow up with nephrology on discharge (3) High serum lactate: Possible related to respiratory hypoxia vs sepsis vs LIZZ Pt has been afebrile Doubt sepsis CT abd/pelvis showed no free air. Marked colonic and moderate small bowel dilatation due to to a large amount of stool within the distal sigmoid colon and rectum which results in a functional colonic obstruction. IVF was discontinued due to mild pulmonary edema and worsening hypoxia Blood cx no growth Lactic acid normalized at 1.3 Procalcitonin elevated at 7 (06/18), now trending down Continue zosyn, add doxy obtain blood cultx CT PE ordered for further eval - no PE, poss. However extensive bilateral lower lobe airspace opacities c/w atelectasis, poss. pna. Additional groundglass opacities within the lungs could reflect an infectious process or pulmonary edema. Dilatation of the central pulmonary arteries suggest pulmonary arterial hypertension. KUB also obtained, show significant dilatation of the bowel, now concern for sigmoid volvulus as above. (4) Diastolic CHF, chronic: Last echocardiogram was completed on 06/22/2018, showing EF of 65 to 70%, concentric LVH, grade 1 diastolic dysfunction CXR showed Mild interstitial pulmonary edema, unchanged. IVF was discontinued due to worsening SOB Continue to hold Bumex Continued Lasix IV 60mg BID as per nephrology Continue oxygen supplement (5) Elevated d-dimer: D-Dimer 1070 PT had elevated d-dimer in the past Doppler of LE extremities showed no DVT unable to get a CTA chest to r/o PE due to elevate creatinine on admission Considered to get a V/Q scan, doubt that will help since pt has hx COPD with interstitial changes Cr normalized,obtained CT PE (06/18) - negative for PE (6) HTN (hypertension): BP stable Continue to hold amlodipine (7) Dyslipidemia: Continue statin therapy, had held this several weeks ago for a trial to see if this was causing muscle weakness/pain, but has restarted it at this point (8) COPD (chronic obstructive pulmonary disease): Patient wears BiPAP at night with 4L O2, Continue BIpap for now (9) Obesity hypoventilation syndrome: - Hx of such (10) Chronic respiratory failure with hypercapnia: (11) Hypoxia: CXR showed progressive perihilar interstitial/vascular thickening suggestive of mild pulmonary edema. ABG showed pH 7.32, PCO2 65, P02 74 HCO3 33 Patient wears BiPAP at night with 4L O2 at baseline Worsening hypoxia Unable to get a CTA chest to r/o PE Has been off bipap, now on nasal canula Consider to get a CT chest without contrast if no improvement Will continue wean off oxygen Clinically improved Cr now normalized, obtained CT PE (06/18) - no PE, poss. However extensive bilateral lower lobe airspace opacities c/w atelectasis, poss. pna. Additional groundglass opacities within the lungs could reflect an infectious process or pulmonary edema. Dilatation of the central pulmonary arteries suggest pulmonary arterial hypertension. Cont. zosyn, doxy, for now Incentive spirometer, flutter valve, guaifenesin if pt can take PO (12) Obesity: -BMI of 37.6 (13) Hypothyroidism: Cont levothyroxine 175 mcg daily (14) Gout: -Cont colchicine 0.6 mg daily (15) Sleep apnea: Continue bipap as above (16) DVT prophylaxis: scds/heparin subq CODE: DNR/DNI Disposition: transferred to medical Admission and Anticipated Discharge Date Admission Date: June 13, 2020 Subjective Pt was seen and examined for follow up of hypoxia and abdominal discomfort, sigmoid volvulus In no acute distress He continues to require suppl. O2 Discussed with nursing staff, to encourage incentive spirometry, and flutter valve Denies any chest pain, palpitation, dizziness and fever Underwent colonic decompression with GI, for sigmoid volvulus Per GI, recommendation for surgery Per surgical service, will await for now, and if surgery needed it can be done here, do not feel need for a tertiary care center This was in detail discussed with patient and his daughter Soniya, and they feel that for now they will follow with surgery here. Started patient on full liquid diet. repeat KUB essentially unchanged Rectal tube in place Surgical service following closely Review of Systems Review of Systems: All systems reviewed & are unremarkable except as noted in HPI & below Constitutional: + weakness (generalized (slightly improved)); no fever and no chills Respiratory: + cough (occasional); no dyspnea (but remains on suppl. O2) Cardiovascular: no chest pain and no palpitations Gastrointestinal: no abdominal pain, no nausea and no vomiting Physical Exam Physical Exam: General- Elderly obese frail male laying in bed in no acute distress, on suppl. O2 3-4L Head- normocephalic, atraumatic Eyes- PERRL, EOMI, ENT- oropharynx clear Neck- supple, no JVD Lungs- mild rhonchi noted, no wheezing Heart- regular rhythm; no murmur Abdomen- nontender, obese, soft, + distended, +hypoactive bowel sounds Extremities- no calf tenderness, +1+ LE edema b/l Neuro- alert, oriented x 3; PERRL, EOMI; no facial palsy; no dysarthria, +generalized weakness Skin- warm & dry Results & Data Results & Data ([place]) Vital Signs (Past 12 Hours) Vital Signs Temp Pulse Pulse Resp BP Pulse Ox 06/23/20 07:36 64 16 97 06/23/20 07:33 63 06/23/20 04:29 63 18 97 06/23/20 03:51 36.6 C 63 18 131/74 95 06/22/20 23:39 68 06/22/20 23:09 36.4 C L 73 16 129/74 95 06/22/20 22:59 64 21 97 Laboratory Results 06/23/20 06/23/20 Range/Units 07:22 07:22 WBC 14.92 H (4.8-10.8) K/uL RBC 3.92 L (4.7-6.1) M/uL Hgb 11.8 L (14.0-18.0) g/dL Hct 35.5 L (42-52) % MCV 90.6 (80-100) fL MCH 30.1 (25-34) pg MCHC 33.2 (32-36) g/dL RDW Std Deviation 51.1 H (36.4-46.3) fL RDW Coeff of Maximilian 15.3 H (11.5-14.5) % Plt Count 214 (130-400) K/uL MPV 9.3 (7.4-10.4) fL Sodium 138 (136-145) mmol/L Potassium 4.4 (3.5-5.1) mmol/L Chloride 103 (98-107) mmol/L Carbon Dioxide 32 (21-32) mmol/L Anion Gap 3.0 (3-11) BUN 15 (7-18) mg/dl Creatinine 0.67 (0.6-1.4) mg/dl Est Cr Clr Drug Dosing 136.9 ml/min Est GFR ( Amer) 105.9 Est GFR (Non-Af Amer) 91.4 BUN/Creatinine Ratio 22.7 H (10-20) Glucose 108 H (70-99) mg/dl Calcium 8.8 (8.5-10.1) mg/dl Phosphorus 3.5 (2.5-4.9) mg/dl Magnesium 2.0 (1.8-2.4) mg/dl Medications Administered Current Inpatient Medications Acetaminophen (Acetaminophen 325 Mg Tab) 650 mg PO Q4H PRN PRN Reason: Moderate Pain Stop: 07/13/20 18:19 Amlodipine Besylate (Amlodipine Besylate 5 Mg Tab) [facility]: 07/14/20 08:59 Last Admin: 06/14/20 11:20 Dose: 5 mg Documented by: Aspirin (Aspirin 81 Mg Ectab) 81 mg [facility] [place]: 07/14/20 08:59 Last Admin: 06/23/20 08:00 Dose: 81 mg Documented by: Calcium Carbonate (Calcium Carbonate 500 Mg Chewable Tab) 500 mg PO BID PRN PRN Reason: gerd Stop: 07/13/20 18:19 Last Admin: 06/15/20 18:12 Dose: 500 mg Documented by: Doxycycline Hyclate (Doxycycline Hyclate 100 Mg Cap) 100 mg PO BID [facility] Stop: 06/25/20 08:59 Last Admin: 06/19/20 13:12 Dose: Not Given Documented by: Guaifenesin (Guaifenesin 600 Mg Tabcr) 600 mg PO Q12 [facility] Stop: 07/19/20 08:59 Last Admin: 06/23/20 07:59 Dose: 600 mg Documented by: Heparin Sodium (Porcine) (Heparin Sod 5,000 Unit/0.5 Ml Vial) 5,000 units SQ Q12 [facility] Stop: 07/13/20 20:59 Last Admin: 06/23/20 07:59 Dose: 5,000 units Documented by: Piperacillin Sod/Tazobactam (Sod 4.5 gm/ Dextrose) 120 mls @ 30 mls/hr IV Q8H [facility]; Protocol Stop: 06/23/20 23:59 Last Infusion: 06/23/20 09:52 Dose: Infused Documented by: Doxycycline Hyclate 100 mg/ (Dextrose) 110 mls @ 50 mls/hr IV Q12H [facility] Stop: 06/26/20 16:59 Last Infusion: 06/23/20 07:11 Dose: Infused Documented by: Potassium Chloride 40 meq/ (Dextrose) 1,020 mls @ 80 mls/hr IV .[id number] [facility] Stop: 07/20/20 14:59 Last Admin: 06/23/20 05:52 Dose: 80 mls/hr Documented by: Ipratropium [place] (Ipratropium [place] Neb Soln 0.02% 2.5 Ml Vial) 0.5 mg INH BIDR [facility] Stop: 07/18/20 18:59 Last Admin: 06/23/20 07:35 Dose: 0.5 mg Documented by: Ipratropium [place] (Ipratropium [place] Neb Soln 0.02% 2.5 Ml Vial) 0.5 mg INH Q6R PRN PRN Reason: Shortness Of Breath Or Wheezing Stop: 07/18/20 22:29 Levalbuterol HCl (Levalbuterol 1.25mg/0.5ml Neb) 1.25 mg INH BIDR [facility] Stop: 07/18/20 18:59 Last Admin: 06/23/20 07:35 Dose: 1.25 mg Documented by: Levalbuterol HCl (Levalbuterol 1.25mg/0.5ml Neb) 1.25 mg INH Q6R PRN PRN Reason: Shortness Of Breath Or Wheezing Stop: 07/19/20 00:59 Levothyroxine Sodium (Levothyroxine Sodium 175 Mcg Tablet) 175 mcg PO DAILYBB [facility] Stop: 07/14/20 06:29 Last Admin: 06/23/20 05:55 Dose: 175 mcg Documented by: Menthol (Cough Drop (Sugar Free) Charla 24 Charla/1 Box) 1 hcarla BUCCAL NOW PRN PRN Reason: Sore Throat Stop: 07/17/20 22:31 Miscellaneous Information (Piperacill/Tazobac Consult Active) 1 ea N/A UD PRN PRN Reason: Consult Stop: 06/23/20 23:59 Prolensa~Non- Formulary Patient's Own Med 1 ea OP BID [facility] Stop: 07/14/20 08:59 Last Admin: 06/23/20 08:01 Dose: 1 drops Documented by: Durezol~Non- Formulary Patient's Own Med 1 ea OP BID [facility] Stop: 07/14/20 08:59 Last Admin: 06/23/20 08:01 Dose: 1 drops Documented by: Polyethylene Glycol (Polyethylene (Miralax) 17 Gm Pack) 17 gm PO BID [facility] Stop: 07/18/20 12:14 Last Admin: 06/19/20 09:14 Dose: Not Given Documented by: Potassium Chloride (Potassium Chloride Crtab 20 Meq Tabcr) 20 meq PO QAM [facility] Stop: 07/22/20 08:59 Last Admin: 06/23/20 08:01 Dose: 20 meq Documented by: Potassium Phosphate (Pot Phosphate Monobasic W/ Sod Tab) 1 tab PO QID [facility] Stop: 07/19/20 08:59 Last Admin: 06/23/20 08:00 Dose: 1 tab Documented by: Simvastatin (Simvastatin 20 Mg Tab) 20 mg PO HS [facility] Stop: 07/13/20 20:59 Last Admin: 06/18/20 22:49 Dose: 20 mg Documented by: Vitamin D (Cholecalciferol 1,000 Units 25 Mcg Tab) 1,000 units PO QAM [facility] Stop: 07/14/20 08:59 Last Admin: 06/19/20 13:12 Dose: Not Given Documented by: (1) Acute kidney failure Acute renal failure type: unspecified Qualified Code(s): N17.9 - Acute kidney failure, unspecified
[2020-06-23] MEDS: POT PHOSPHATE MONOBASIC W/ SOD TAB PO SCH ×4 (08:00→21:20)
[2020-06-23] MEDS: ASPIRIN 81 MG ECTAB PO SCH (08:00)
[2020-06-23] MEDS: PROLENSA OP SCH ×2 (08:01→21:36)
[2020-06-23] MEDS: POTASSIUM CHLORIDE CRTAB 20 MEQ TABCR PO SCH (08:01)
[2020-06-23] MEDS: DUREZOL OP SCH ×2 (08:01→21:36)
[2020-06-23 08:27] LABS: BUN Creatinine Ratio 22.7 (10-20); Calcium 8.8 mg/dl (8.5-10.1); Creatinine Clr Calc Pharmacy 136.9 ml/min; Est GFR (African American) 105.9; Est GFR (Non-African American) 91.4; Potassium 4.4 mmol/L (3.5-5.1)
[2020-06-23 08:28] LABS: Phosphorus 3.5 mg/dl (2.5-4.9)
--- NOTE | 2020-06-23 10:05 | Surgery Progress Note ---
Date of Service June 23, 2020 Assessment & Plan (1) Dilatation of colon: POD #4 status post colonic decompression for likely sigmoid volvulus The patient continues to move his bowels although he still has significant amount of small bowel distention visualized by KUB over the weekend this morning's KUB is pending Discussed with the patient possibility of surgery in the near future and he appears to understand the risks associated with that At this point I will hold off any plans for surgery with the hope that we can continue to evacuate his colon and put him on a bowel prep that would help with a primary colon resection of the sigmoid colon and anastomosis Patient is day#1 s/p colonic decompression with GI for sigmoid colon distention and concern for volvulus. A decompression tube has been left in place. Post procedure KUB showed improvement - Today patient denies any abdominal complaints. Abdomen is soft and non tender - We will start patient on full liquids for today - Dr. Ware has discussed the possibility of surgical intervention with his daughter Soniya. There is no current urgency to alcantara into surgery, so we will continue to follow closely and see how he fairs over the weekend. No need to send patient to tertiary center - Will order KUB today for further evaluation - Pt has been seen and examined with Dr. Ware - [facility] surgery covering for the weekend Admission and Anticipated Discharge Date Admission Date: June 13, 2020 Subjective Patient feels much better than he did 2 days ago not having any abdominal pain not nauseated stating his breathing is better Physical Exam Physical Exam: Patient is alert coherent resting comfortable in bed in without complaints The abdomen is softer than last seen few days ago there is no tenderness no guarding Decompression tube in the sigmoid colon is moderate amount of liquid stool captured in the back Results & Data ([facility]) Vital Signs (Past 12 Hours) Vital Signs Temp Pulse Pulse Resp BP Pulse Ox 06/23/20 08:31 36.8 C 59 L 20 126/65 94 06/23/20 07:36 64 16 97 06/23/20 07:33 63 06/23/20 04:29 63 18 97 06/23/20 03:51 36.6 C 63 18 131/74 95 06/22/20 23:39 68 06/22/20 23:09 36.4 C L 73 16 129/74 95 06/22/20 22:59 64 21 97 KUB from today still pending AV over the weekends were reviewed PG Care Time/CCT Total # of Minutes Spent Total Time Spent with Patient: Total time spent is greater than 50% in coordination of care (as documented) at patient's floor/unit and/or counseling patient: Coding Level of Care Code 36408 Subseq Hosp Care Lvl 3 Diagnoses Dilatation of colon K59.39
--- NOTE | 2020-06-23 10:57 | XRay Report ---
XR KUB/Abdomen 1 view CLINICAL HISTORY: Bowel distention COMPARISON STUDY: 06/22/2020 FINDINGS: A colonic tube is again visualized. The catheter is positioned within the sigmoid. The tube demonstrates a kink at the level of the proximal sidehole. There is persistent gaseous distention of the colon which measures up to 13.7 cm in diameter. IMPRESSION: 1. Slight increase in the gaseous distention of the colon 2. Colonic tube located within the sigmoid colon. The tube demonstrates a kink at the level of the pr oximal sidehole. ACT 112: Negative or not required by law. Electronically signed by: Mike Thomas M.D. 06/23/2020 10:55 AM
--- NOTE | 2020-06-23 12:26 | Nephrology Progress Note ---
Date of Service June 23, 2020 Assessment & Plan (1) Disorders of fluid, electrolyte, and acid-base balance: Last creatinine in June 2018 was 1.12 was admitted with a serum creatinine of 1.6, which has been gradually increasing to peak at 2.9 on 06/14, down to 0.9 today. still on 4-5L and no longer w/ down trend. >>over 5L positive past 3.5 days (06/21-06/23), though still negative on the admission probably euvolemic to slightly overloaded>> very challenging to evaluate His potassium dropping w/ replaced rectal tube and po supplements on hold >> have cancelled lasix but can give prn if sob ON >>>>lowered rate of D5W to 40 mL hourly and lowered K supplement to 20 mEq/ L once current bag done >> discussed w/ pharmacy -continue daily bmp -avoid IV albumin w/ hypoxia/vol OL -cont strict I/O -cont to hold CCB d/t hypotension but may be able to reintroduce if sbp goes up >>pt states he is being fed; important that this continue / eval if/when able to feed self (2) Acute kidney failure: resolved as above Admission and Anticipated Discharge Date Admission Date: June 13, 2020 Subjective seen on rounds at 1050 approx. no c/o uncontrolled pain though did note twinge RUQ today (one of first times he reports abd pain to me); no worsening sob, no cramping; KUB w/ ?colonic tube kink Review of Systems Review of Systems: All systems reviewed & are unremarkable except as noted in Subjective Physical Exam Constitutional: well developed, well nourished, + morbidly obese, + obese and + frail appearing; no acute distress Eyes: EOM intact bilaterally ENMT: Ears: no external ear abnormality Nose: no external nose abnormality Mouth: + dry oral mucous membranes Neck: no nuchal rigidity Respiratory: normal respiratory effort Auscultation: + diminished lung sounds Cardiovascular: Rate/Rhythm: regular rate and regular rhythm Extremities: no edema Gastrointestinal (Abdomen): Inspection/Auscultation: normal bowel sounds Percussion/Palpation: abdomen soft; abdomen nontender rectal tube w/ copious liquid stool Musculoskeletal: Extremities: + abnormal strength (gilmar R arm) Skin: no rashes, warm and dry Psychiatric: Orientation: alert, oriented to person and oriented to place Genitourinary: vann present w/ ample yellow urine Results & Data [facility]) Vital Signs (Past 12 Hours) Vital Signs Temp Pulse Pulse Resp BP Pulse Ox 06/23/20 08:31 36.8 C 59 L 20 126/65 94 06/23/20 07:36 64 16 97 06/23/20 07:33 63 06/23/20 04:29 63 18 97 06/23/20 03:51 36.6 C 63 18 131/74 95 Laboratory Results 06/23/20 07:22 06/23/20 07:22 (1) Acute kidney failure Acute renal failure type: unspecified Qualified Code(s): N17.9 - Acute kidney failure, unspecified
--- NOTE | 2020-06-23 12:39 | Gastroenterology Progress Note ---
Date of Service June 23, 2020 Assessment & Plan (1) Dilatation of colon: This is a 79 y/o male followed for suspected sigmoid volvulus vs chronic pseudoobstruction s/p colonic decompression and rectal tube placement on 06/19. His rectal tube appears kinked on KUB today. Exam revealed soft abd w BS present. Pt w/o abd pain, n/v. Surgery planned for sigmoidectomy during this admission. Pls keep pt NPO now. Will repeat colonic decompression w rectal tube repositioning so pt can receive adequate bowel prep in preparation for his surgery. Admission and Anticipated Discharge Date Admission Date: June 13, 2020 Supervising Physician Co-Signing Physician Notes I performed a history and physical examination of the patient today, including specifically on physical exam - soft abdomen. I have discussed the patient's management with the advanced practitioner. Please refer to the nurse practitioner's note for the documented findings and plan of care. Persistent dilation of the colon on KUB today however he feels better clinically. Planned for sigmoid resection once able to drink bowel prep. Rectal tube is coiled in the sigmoid, will plan for repeat Flex sig today to reposition the tube. Subjective Pt denies abd pain, n/v. Rectal tube appears kinked on KUB. Liquid stool in rectal bag noted Review of Systems Review of Systems: All systems reviewed & are unremarkable except as noted in HPI & below Physical Exam Constitutional: WD/WN, vitals as above well groomed, cooperative and comfortable Eyes: PERRL, conjunctivae normal, anicteric sclerae ENMT: external ear and nose normal, oropharynx normal Respiratory: normal respiratory effort, lungs clear to auscultation Cardiovascular: RRR, no murmur, no edema Gastrointestinal (Abdomen): normal bowel sounds, soft, nontender, no hepatosplenomegaly Skin: no rashes, warm and dry no jaundice Psychiatric: A+Ox3, euthymic affect Lymphatic: no lymphedema Results & Data ([facility]) Vital Signs (Past 12 Hours) Vital Signs Temp Pulse Pulse Resp BP Pulse Ox 06/23/20 08:31 36.8 C 59 L 20 126/65 94 06/23/20 07:36 64 16 97 06/23/20 07:33 63 06/23/20 04:29 63 18 97 06/23/20 03:51 36.6 C 63 18 131/74 95
[2020-06-23] MEDS ORDERED: SOD PHOSPHATE/SOD BIPHOSPHATE ENEMA 132 ML BTL PR STA (12:52)
[2020-06-23] MEDS ORDERED: MINERAL OIL 30 ML UDC ONE (14:04)
[2020-06-23] MEDS ORDERED: LIDOCAINE HCL 2% 2 ML VIAL/AMP(20MG/ML) INFIL ONE (14:12)
[2020-06-23] MEDS ORDERED: PROPOFOL IV EMULSION 10 MG/ML 20 ML VIAL IV ONE (14:12)
--- NOTE | 2020-06-23 14:51 | Anesthesiology Consultation ---
Date of Service June 23, 2020 The patient had a colonoscopy on 06/19/20 that he tolerated well. Assessment & Plan (1) Encounter for pre-operative examination: Chart Review Chart Review: Acceptable Risk for Surgery and Patient NOT seen in Pre Admission Testing Consults Requested none History Surgery Operation Date: 06/19/20 16:30 Proposed Procedures p Colonoscopy Dr Krish Rutherford DO Operation Date: 06/23/20 16:00 Proposed Procedures p Colonoscopy Dr Aguilar Sheikh MD Height/Weight Height: 6 ft 6 in Weight: 133.5 kg Allergies Allergy/AdvReac Type Severity Reaction Status Date / Time No Known Allergies Allergy Verified 06/19/20 10:12 Medications Home Medications Medication Instructions Recorded Confirmed Last Taken amlodipine 5 mg tablet 5 mg PO QAM 11/20/18 06/13/20 06/13/20 aspirin 81 mg tablet,delayed 81 mg PO QAM 11/20/18 06/13/20 06/12/20 release simvastatin 20 mg tablet 20 mg PO HS tab 11/20/18 06/13/20 06/13/20 bumetanide 1 mg tablet 1.5 mg PO BID tab 01/08/19 06/13/20 06/13/20 cholecalciferol (vitamin D3) 25 1,000 units PO QAM 01/08/19 06/13/20 06/13/20 mcg (1,000 unit) capsule colchicine 0.6 mg capsule 0.6 mg PO QAM 01/08/19 06/13/20 06/13/20 CPAP Machine #1 ea 02/07/19 06/13/20 Unknown Oxygen Home #1 ea 05/13/19 06/13/20 Unknown calcium carbonate [Tums] 200 mg PO BID PRN 05/16/20 06/13/20 06/13/20 bromfenac [Prolensa] 1 drp OPHTHALMIC (EYE) DAILY 06/13/20 06/13/20 06/13/20 difluprednate [Durezol] See Rx Instructions .ROUTE .COMPLEX 06/13/20 06/13/20 06/13/20 gatifloxacin See Rx Instructions .ROUTE .COMPLEX 06/13/20 06/13/20 Unknown levothyroxine 175 mcg PO DAILYBB 06/13/20 06/13/20 06/13/20 Active Medications Generic Name Dose Route Start Last Admin Trade Name Freq PRN Reason Stop Dose Admin Amlodipine Besylate 5 mg 06/14/20 09:00 06/14/20 11:20 Amlodipine Besylate 5 Mg Tab PO 07/14/20 08:59 5 mg QAM YOSSI Administration Aspirin 81 mg 06/14/20 09:00 06/23/20 08:00 Aspirin 81 Mg Ectab PO 07/14/20 08:59 81 mg QAM YOSSI Administration Calcium Carbonate 500 mg 06/13/20 18:20 06/15/20 18:12 Calcium Carbonate 500 Mg Chewable Tab PO 07/13/20 18:19 500 mg BID PRN Administration gerd Doxycycline Hyclate 100 mg 06/18/20 09:00 06/19/20 13:12 Doxycycline Hyclate 100 Mg Cap PO 06/25/20 08:59 Not Given BID YOSSI Guaifenesin 600 mg 06/19/20 09:00 06/23/20 07:59 Guaifenesin 600 Mg Tabcr PO 07/19/20 08:59 600 mg Q12 YOSSI Administration Heparin Sodium (Porcine) 5,000 units 06/13/20 21:00 06/23/20 07:59 Heparin Sod 5,000 Unit/0.5 Ml Vial SQ 07/13/20 20:59 5,000 units Q12 YOSSI Administration Piperacillin Sod/Tazobactam 120 mls @ 30 mls/hr 06/18/20 14:00 06/23/20 13:14 Sod 4.5 gm/ Dextrose IV 06/23/20 23:59 30 mls/hr Q8H YOSSI Administration Protocol Doxycycline Hyclate 100 mg/ 110 mls @ 50 mls/hr 06/19/20 17:00 06/23/20 07:11 Dextrose IV 06/26/20 16:59 Infused Q12H YOSSI Infusion Potassium Chloride 40 meq/ 1,020 mls @ 80 mls/hr 06/20/20 15:00 06/23/20 05:52 Dextrose IV 06/23/20 18:30 80 mls/hr .[id number] YOSSI Administration Ipratropium [place] 0.5 mg 06/18/20 19:00 06/23/20 07:35 Ipratropium [place] Neb Soln 0.02% 2.5 Ml Vial INH 07/18/20 18:59 0.5 mg BIDR YOSSI Administration Levalbuterol HCl 1.25 mg 06/18/20 19:00 06/23/20 07:35 Levalbuterol 1.25mg/0.5ml Neb INH 07/18/20 18:59 1.25 mg BIDR YOSSI Administration Levothyroxine Sodium 175 mcg 06/14/20 06:30 06/23/20 05:55 Levothyroxine Sodium 175 Mcg Tablet PO 07/14/20 06:29 175 mcg DAILYBB YOSSI Administration Prolensa~Non- 1 ea 06/14/20 09:00 06/23/20 08:01 Formulary Patient's OP 07/14/20 08:59 1 drops Own Med BID YOSSI Administration Durezol~Non- 1 ea 06/14/20 09:00 06/23/20 08:01 Formulary Patient's OP 07/14/20 08:59 1 drops Own Med BID YOSSI Administration Polyethylene Glycol 17 gm 06/18/20 12:15 06/19/20 09:14 Polyethylene (Miralax) 17 Gm Pack PO 07/18/20 12:14 Not Given BID YOSSI Potassium Chloride 20 meq 06/22/20 09:00 06/23/20 08:01 Potassium Chloride Crtab 20 Meq Tabcr PO 07/22/20 08:59 20 meq QAM YOSSI Administration Potassium Phosphate 1 tab 06/19/20 09:00 06/23/20 13:10 Pot Phosphate Monobasic W/ Sod Tab PO 07/19/20 08:59 Not Given QID YOSSI Simvastatin 20 mg 06/13/20 21:00 06/18/20 22:49 Simvastatin 20 Mg Tab PO 07/13/20 20:59 20 mg HS YOSSI Administration Vitamin D 1,000 units 06/14/20 09:00 06/19/20 13:12 Cholecalciferol 1,000 Units 25 Mcg Tab PO 07/14/20 08:59 Not Given QAM YOSSI NPO Date Last Intake of Fluids: 06/23/20 Time Last Intake of Fluids: 12:00 Date Last Intake of Solids: 06/23/20 Time Last Intake of Solids: 08:30 Last Intake of Solids Comment: full liquids Past Medical History Medical History Anemia Dyslipidemia GERD (gastroesophageal reflux disease) HTN (hypertension) Hx of gout Hypothyroidism Neuropathy Obesity On home oxygen therapy 4 LPM qHS Restrictive lung disease Sleep apnea BiPAP + O2 at 4 LPM Venous insufficiency Past Family History Family History Father Hypertension Mother Lung cancer Aunt Diabetes Aunt Diabetes Other No family history of adverse response to anesthesia No significant family history Past Surgical History Surgical History History of cataract surgery RT. 06/03/20. [facility]. 2mg versed, 50mcg fentanyl. no issues reported. History of colonoscopy Social History Smoking Status: Former smoker Smoking End Date: 1961 Hx Alcohol Use: No Hx Substance Use: No Physical Exam Vital Signs Last Vital Signs Temp 36.8 C 06/23/20 08:31 Pulse 59 L 06/23/20 08:31 Resp 20 06/23/20 08:31 BP 126/65 06/23/20 08:31 Pulse Ox 94 06/23/20 08:31 Testing Laboratory Results 06/23/20 07:22 06/23/20 07:22 PT 11.4 Seconds (9.0-12.0) 06/13/20 13:37 INR 1.1 (0.9-1.1) 06/13/20 13:37 APTT 22.5 Seconds (21.0-31.0) 06/13/20 13:37 Urine Color Dark Yellow 06/15/20 18:55 Urine Appearance Cloudy (Clear) A 06/15/20 18:55 Urine pH 5.0 (4.5-7.5) 06/15/20 18:55 Ur Specific [place] 1.018 (1.000-1.030) 06/15/20 18:55 Urine Protein 1+ (Negative) H 06/15/20 18:55 Urine Glucose (UA) Negative (Negative) 06/15/20 18:55 Urine Ketones Trace (Negative) H 06/15/20 18:55 Urine Nitrite Negative (Negative) 06/15/20 18:55 Ur Leukocyte Esterase Trace (Negative) H 06/15/20 18:55 Urine WBC (Auto) 1-5 /hpf (0-5) 06/15/20 18:55 Urine RBC (Auto) >30 /hpf (0-4) H 06/15/20 18:55 U Hyaline Cast (Auto) 1-5 /lpf (0-5) 06/15/20 18:55 U Epithel Cells (Auto) 10-20 /lpf (0-5) H 06/15/20 18:55 Urine Bacteria (Auto) 1+ (Negative) H 06/15/20 18:55 06/18/20 12:38 Aerobic Blood Culture - Final Blood No growth in Aerobic bottle after 5 days. Anaerobic Blood Culture - Final No growth in Anaerobic bottle after 5 days. 06/18/20 12:50 Aerobic Blood Culture - Final Blood No growth in Aerobic bottle after 5 days. Anaerobic Blood Culture - Final No growth in Anaerobic bottle after 5 days. 06/13/20 22:28 Aerobic Blood Culture - Final Blood No growth in Aerobic bottle after 5 days. Anaerobic Blood Culture - Final No growth in Anaerobic bottle after 5 days. 06/13/20 22:41 Aerobic Blood Culture - Final Blood No growth in Aerobic bottle after 5 days. Anaerobic Blood Culture - Final No growth in Anaerobic bottle after 5 days. 06/13/20 22:11 Urine Culture - Final Urine,Clean Catch More than three types of organisms present, all moderate counts mixed probable skin pravin. No further identifications or sensitivities to follow.
--- NOTE | 2020-06-23 14:55 | History & Physical Bridge Note ---
Date of Service June 23, 2020 History & Physical Bridge Note I have examined the patient, reviewed the History & Physical and in the interval since the performance of the History & Physical I have noted the following changes of clinical significance: no changes noted
[2020-06-23] MEDS ORDERED: KETAMINE 50 MG/5 ML SYRINGE ONE (15:04)
--- NOTE | 2020-06-23 15:07 | Communication Note ---
Date of Service: June 23, 2020 The patient was given mushroom soup at 1200. He will need to wait until at least 1800 to have the procedure.
--- NOTE | 2020-06-23 15:54 | GI REPORT ---
Patient Name: Lorenzo Jackson Procedure Date: 06/23/2020 3:22 PM Date of : 1940 Admit Type: Inpatient Age: 79 Gender: Male Attending MD: Rito Sheikh MD Procedure: Colonoscopy Providers: Rito Sheikh MD Referring MD: Hugo Ware Indications: Therapeutic procedure, Abnormal abdominal x-ray of the GI tract, For therapy/decompression of colonic dilation Medicines: None Complications: No immediate complications. Estimated Blood Loss: Estimated blood loss: none. Procedure: Pre-Anesthesia Assessment: - Prior to the procedure, a History and Physical was performed, and patient medications, allergies and sensitivities were reviewed. The patient's tolerance of previous anesthesia was reviewed. - The risks and benefits of the procedure and the sedation options and risks were discussed with the patient. All questions were answered and informed consent was obtained. - Patient identification and proposed procedure were verified prior to the procedure by the physician and the nurse. The procedure was verified in the procedure room. - Pre-procedure physical examination revealed no contraindications to sedation. After I obtained informed consent, the scope was passed under direct vision. Throughout the procedure, the patient's blood pressure, pulse, and oxygen saturations were monitored continuously. The Colonoscope was introduced through the anus and advanced to the transverse colon for evaluation. This was the intended extent. The colonoscopy was performed without difficulty. The patient tolerated the procedure well. The quality of the bowel preparation was poor. Findings: The perianal and digital rectal examinations were normal. The previously placed rectal tube was removed. A 8 mm polyp was found in the transverse colon. The polyp was sessile. The polyp was removed with a cold snare. Resection and retrieval were complete. Verification of patient identification for the specimen was done by the physician and nurse using the patient's name and date. The lumen of the colon (entire examined portion) was significantly dilated. A new colonic decompression tube was placed. Impression: - One 8 mm polyp in the transverse colon, removed with a cold snare. Resected and retrieved. - Dilated colon. A new decompression tube was placed. Recommendation: - Return patient to [facility] for ongoing care. - Flush the rectal tube every 6 hrs. - Obtain KUB. - Give 2 L of PO Golytely to cleanse the colon. - Await pathology results. - Repeat colonoscopy in 1 year for surveillance. Rito Sheikh MD 06/23/2020 3:54:19 PM This report has been signed electronically. Note Initiated On: 06/23/2020 3:22 PM Number of Addenda: 0 I attest to the content of the Intraoperative Record and orders documented therein, exceptions below {[id number]}
--- NOTE | 2020-06-23 16:18 | XRay Report ---
XR KUB/Abdomen 1 view CLINICAL HISTORY: eval rectal tube position COMPARISON STUDY: No previous studies for comparison. FINDINGS: There is been interval repositioning of the patient's rectal inserted colonic tube. The tip now projects over the left lower quadrant, likely near the sigmoid descending colonic junction. The tube is no longer can't. There is persistent gaseous prominence of the bowel. IMPRESSION: The patient's colonic tube is been repositioned and the tip now projects near the expect ed location of the descending sigmoid junction. ACT 112: Negative or not required by law. Electronically signed by: Mike Thomas M.D. 06/23/2020 4:16 PM
[2020-06-23] MEDS ORDERED: LAVAGE SOLUTION 4000ML PO SCH (17:00)
[2020-06-23] MEDS ORDERED: POTASSIUM CHLORIDE 20 MEQ in DEXTROSE 5% 1,000 ML IV SCH (18:30)
[2020-06-24 00:47] LABS: Hematocrit (blood only) 33.5 % (42-52)
[2020-06-24] MEDS: DOXYCYCLINE HYCLATE 100 MG in DEXTROSE 5% 100 ML IV SCH ×2 (04:51→16:26)
[2020-06-24] MEDS: LEVOTHYROXINE SODIUM 175 MCG TABLET PO SCH (06:16)
[2020-06-24] MEDS: LEVALBUTEROL 1.25MG/0.5ML NEB INH SCH ×2 (07:11→19:32)
[2020-06-24] MEDS: IPRATROPIUM BROMIDE NEB SOLN 0.02% 2.5 ML VIAL INH SCH ×2 (07:11→19:31)
[2020-06-24 07:32] LABS: Calcium 8.2 mg/dl (8.5-10.1); Creatinine Clr Calc Pharmacy 169.4 ml/min; Est GFR (African American) 115.7; Est GFR (Non-African American) 99.9; Magnesium 1.9 mg/dl (1.8-2.4); Potassium 3.8 mmol/L (3.5-5.1)
[2020-06-24 07:33] LABS: Phosphorus 3.2 mg/dl (2.5-4.9)
--- NOTE | 2020-06-24 07:38 | Surgery Progress Note ---
Date of Service June 24, 2020 Assessment & Plan (1) Dilatation of colon: Patient underwent repeat colonoscopy yesterday, a transverse colon polyp was removed, and new decompression tube placed KUB pending from this AM We have placed patient on the schedule for a laparoscopic sigmoid colon r esection this upcoming with Dr. Ware. Patient has received golytely yesterday. Will start some antibiotic tomorrow for additional bowel prep Okay for clear liquids from our standpoint if no further procedures today and make NPO on Tuesday at midnight Dr. Ware will get in touch with patient's daughter today to discuss upcoming surgical plans Admission and Anticipated Discharge Date Admission Date: June 13, 2020 Supervising Physician Co-Signing Physician Notes The patient feels much better this morning after had a second colonoscopy yesterday which revealed also an 8 mm polyp that was biopsied in the transverse colon and recurrent distention of the sigmoid colon required decompression At this point we plan to operate gentleman on laparoscopic assisted colon resection for recurrent volvulus Present time since yesterday he is evacuated consider amount of stool he is on GoLYTELY we will continue the patient on full liquid diet get more antibiotics tomorrow and hopefully by tomorrow we have an idea what pathology on the polyp is We will discussed the case with his daughter also We will discuss the plans with the medical service including the likelihood of needing some formal hyperalimentation the postoperative period since most likely the patient will have a period of time until his GI function returns to normal after surgery Subjective Patient denies abdominal pain, nausea/vomiting. Says he has been breathing okay. Has been previously tolerating a liquid diet without issues. Physical Exam Physical Exam: awake/alert Gastrointestinal (Abdomen): Inspection/Auscultation: abdomen not distended Percussion/Palpation: abdomen soft; abdomen nontender rectal tube in place Results & Data ([facility]) Vital Signs (Past 12 Hours) Vital Signs Temp Pulse Pulse Resp BP Pulse Ox 06/24/20 07:13 77 20 95 06/24/20 04:00 36.7 C 69 18 124/74 93 06/24/20 03:21 80 20 98 06/24/20 01:22 71 06/23/20 23:12 37.0 C 80 18 120/68 98 06/23/20 21:31 79 24 92 06/23/20 19:35 70 18 96 PG Care Time/CCT Total # of Minutes Spent Total Time Spent with Patient: Total time spent is greater than 50% in coordination of care (as documented) at patient's floor/unit and/or counseling patient: Coding Level of Care Code 01239 Subseq Hosp Care Lvl 1 Diagnoses Dilatation of colon K59.39
--- NOTE | 2020-06-24 08:36 | Hospitalist Progress Note ---
Date of Service June 24, 2020 Assessment & Plan (1) Constipation: Present on admission with abdominal discomfort and distended CT abd/pelvis showed marked colonic and moderate small bowel dilatation due to to a large amount of stool within the distal sigmoid colon and rectum which results in a functional colonic obstruction. Repeat KUB showed no change in the distended and stool-filled large and small bowel. GI on board smog enemas or soap kurtis enema bowel prep was given Surgery on board no indication for any surgical intervention Pt has been having numerous bowel movement Diet advanced as tolerated GI recommended MiraLAX 17 g 1-2 times daily Will keep K > 4 and Mg > 2 to facilitate bowel motility GI recommended outpatient colonoscopy, pt would think about it before scheduling it Continue monitor closely 06/18 patient still requiring supplemental oxygen today, which is different from his baseline, imaging obtained. Also procalcitonin elevated at 7. KUB was obtained as well, as it shows significant dilatation of bowels. NG tube tried to be placed overnight several times, however unsuccessful. Patient then declined further attempts. Sigmoid volvulus 06/19 KUB was repeated this morning shows progressive markedly distended large/small bowel with sigmoid colon measuring up to 16 cm in diameter, concerning for sigmoid volvulus. Surgery and GI contacted. Surgery recommends GI for colonic decompression. Plan for urgent colonoscopy/ colonic decompression by Dr. Rutherford. Patient underwent colonic decompression with Dr. Rutherford, from GI. It is recommended that patient then has surgery. Discussed in detail with surgical service, and they feel that there is no urgency to surgery at this point, if surgery needed it would be done here, no need for tertiary care center. Recommend to start on liquid diet. This was also discussed in detail with patient and his daughter, who are in agreement, to follow with surgery here for now. 06/22 repeat KUB essentially unchanged, surgery closely following Patient currently sitting up in the chair, for the first time, however continues to be fatigued and using supplemental oxygen Rectal tube in place 06/23 Patient has no complaints, no abdominal pain, surgical service following closely, not much improvement with colon distention monitored on KUB over the weekend. Underwent colonic decompression again with GI, as rectal tube was kinked. 06/24 Plan for surgery on , June 26. Patient is otherwise feeling well, no chest pain shortness of breath or abdominal pain. Currently on 2 L of O2 via nasal cannula. (2) Acute kidney failure: Creatinine on admission 1.6, then worsening to 2.9, now down to 1.1 Renal u/s showed No definite hydronephrosis. study was difficult Creatinine normalized Nephrology on board, appreciate their input, pt was on Lasix 60 mg IV BID Avoid nephrotoxic agents Continue monitor BMP Follow up with nephrology on discharge (3) High serum lactate: Possible related to respiratory hypoxia vs sepsis vs LIZZ Pt has been afebrile Doubt sepsis CT abd/pelvis showed no free air. Marked colonic and moderate small bowel dilatation due to to a large amount of stool within the distal sigmoid colon and rectum which results in a functional colonic obstruction. IVF was discontinued due to mild pulmonary edema and worsening hypoxia Blood cx no growth Lactic acid normalized at 1.3 Procalcitonin elevated at 7 (06/18), now trending down Continue zosyn, add doxy obtain blood cultx CT PE ordered for further eval - no PE, poss. However extensive bilateral lower lobe airspace opacities c/w atelectasis, poss. pna. Additional groundglass opacities within the lungs could reflect an infectious process or pulmonary edema. Dilatation of the central pulmonary arteries suggest pulmonary arterial hypertension. KUB also obtained, show significant dilatation of the bowel, now concern for sigmoid volvulus as above. (4) Diastolic CHF, chronic: Last echocardiogram was completed on 06/22/2018, showing EF of 65 to 70%, concentric LVH, grade 1 diastolic dysfunction CXR showed Mild interstitial pulmonary edema, unchanged. IVF was discontinued due to worsening SOB Continue to hold Bumex Continued Lasix IV 60mg BID as per nephrology Continue oxygen supplement (5) Elevated d-dimer: D-Dimer 1070 PT had elevated d-dimer in the past Doppler of LE extremities showed no DVT unable to get a CTA chest to r/o PE due to elevate creatinine on admission Considered to get a V/Q scan, doubt that will help since pt has hx COPD with interstitial changes Cr normalized,obtained CT PE (06/18) - negative for PE (6) HTN (hypertension): BP stable Continue to hold amlodipine (7) Dyslipidemia: Continue statin therapy, had held this several weeks ago for a trial to see if this was causing muscle weakness/pain, but has restarted it at this point (8) COPD (chronic obstructive pulmonary disease): Patient wears BiPAP at night with 4L O2, Continue BIpap for now (9) Obesity hypoventilation syndrome: - Hx of such (10) Chronic respiratory failure with hypercapnia: (11) Hypoxia: CXR showed progressive perihilar interstitial/vascular thickening suggestive of mild pulmonary edema. ABG showed pH 7.32, PCO2 65, P02 74 HCO3 33 Patient wears BiPAP at night with 4L O2 at baseline Worsening hypoxia Unable to get a CTA chest to r/o PE Has been off bipap, now on nasal canula Consider to get a CT chest without contrast if no improvement Will continue wean off oxygen Clinically improved Cr now normalized, obtained CT PE (06/18) - no PE, poss. However extensive bilateral lower lobe airspace opacities c/w atelectasis, poss. pna. Additional groundglass opacities within the lungs could reflect an infectious process or pulmonary edema. Dilatation of the central pulmonary arteries suggest pulmonary arterial hypertension. Cont. zosyn, doxy, for now Incentive spirometer, flutter valve, guaifenesin if pt can take PO (12) Obesity: -BMI of 37.6 (13) Hypothyroidism: Cont levothyroxine 175 mcg daily (14) Gout: -Cont colchicine 0.6 mg daily (15) Sleep apnea: Continue bipap as above (16) DVT prophylaxis: scds/heparin subq CODE: DNR/DNI Disposition: transferred to medical Admission and Anticipated Discharge Date Admission Date: June 13, 2020 Subjective Pt was seen and examined for follow up of hypoxia and abdominal discomfort, sigmoid volvulus In no acute distress He continues to require suppl. O2 Discussed with nursing staff, to encourage incentive spirometry, and flutter valve Denies any chest pain, palpitation, dizziness and fever Underwent colonic decompression with GI, for sigmoid volvulus x2 Rectal tube in place Plan for surgery 06/26 Currently patient is sitting up in the chair, in no acute distress, denies any chest pain, shortness of breath, currently on 2 L via nasal cannula. Denies abdominal pain. Review of Systems Review of Systems: All systems reviewed & are unremarkable except as noted in HPI & below Constitutional: + weakness (generalized (slightly improved)); no fever and no chills Respiratory: + cough (occasional); no dyspnea (but remains on suppl. O2) Cardiovascular: no chest pain and no palpitations Gastrointestinal: no abdominal pain, no nausea and no vomiting Physical Exam Physical Exam: General- Elderly obese frail male laying in bed in no acute distress, on suppl. O2 2L Head- normocephalic, atraumatic Eyes- PERRL, EOMI, ENT- oropharynx clear Neck- supple, no JVD Lungs- mild rhonchi noted, no wheezing Heart- regular rhythm; no murmur Abdomen- nontender, obese, soft, + distended, +hypoactive bowel sounds Extremities- no calf tenderness, +1+ LE edema b/l Neuro- alert, oriented x 3; PERRL, EOMI; no facial palsy; no dysarthria, +generalized weakness Skin- warm & dry Results & Data Results & Data ([facility]) Vital Signs (Past 12 Hours) Vital Signs Temp Pulse Pulse Resp BP BP Pulse Ox 06/24/20 07:53 36.8 C 68 19 146/82 H 93 06/24/20 07:50 68 06/24/20 07:13 77 20 95 06/24/20 04:00 36.7 C 69 18 124/74 93 06/24/20 03:21 80 20 98 06/24/20 01:22 71 06/23/20 23:12 37.0 C 80 18 120/68 98 06/23/20 21:31 79 24 92 Laboratory Results 06/24/20 06/24/20 Range/Units 06:32 00:28 Hgb 11.0 L (14.0-18.0) g/dL Hct 33.5 L (42-52) % Sodium 142 (136-145) mmol/L Potassium 3.8 (3.5-5.1) mmol/L Chloride 107 (98-107) mmol/L Carbon Dioxide 31 (21-32) mmol/L Anion Gap 4.0 (3-11) BUN 13 (7-18) mg/dl Creatinine 0.54 L (0.6-1.4) mg/dl Est Cr Clr Drug Dosing 169.4 ml/min Est GFR ( Amer) 115.7 Est GFR (Non-Af Amer) 99.9 BUN/Creatinine Ratio 25.0 H (10-20) Glucose 96 (70-99) mg/dl Calcium 8.2 L (8.5-10.1) mg/dl Phosphorus 3.2 (2.5-4.9) mg/dl Magnesium 1.9 (1.8-2.4) mg/dl Medications Administered Current Inpatient Medications Acetaminophen (Acetaminophen 325 Mg Tab) 650 mg PO Q4H PRN PRN Reason: Moderate Pain Stop: 07/13/20 18:19 Amlodipine Besylate (Amlodipine Besylate 5 Mg Tab) 5 mg PO QAM [facility] Stop: 07/14/20 08:59 Last Admin: 06/14/20 11:20 Dose: 5 mg Documented by: Aspirin (Aspirin 81 Mg Ectab) 81 mg PO QAM [facility] Stop: 07/14/20 08:59 Last Admin: 06/23/20 08:00 Dose: 81 mg Documented by: Calcium Carbonate (Calcium Carbonate 500 Mg Chewable Tab) 500 mg PO BID PRN PRN Reason: gerd Stop: 07/13/20 18:19 Last Admin: 06/15/20 18:12 Dose: 500 mg Documented by: Doxycycline Hyclate (Doxycycline Hyclate 100 Mg Cap) 100 mg PO BID [facility] Stop: 06/25/20 08:59 Last Admin: 06/19/20 13:12 Dose: Not Given Documented by: Guaifenesin (Guaifenesin 600 Mg Tabcr) 600 mg PO Q12 [facility] Stop: 07/19/20 08:59 Last Admin: 06/23/20 21:20 Dose: 600 mg Documented by: Heparin Sodium (Porcine) (Heparin Sod 5,000 Unit/0.5 Ml Vial) 5,000 units SQ Q12 [facility] Stop: 07/13/20 20:59 Last Admin: 06/23/20 21:36 Dose: Not Given Documented by: Doxycycline Hyclate 100 mg/ (Dextrose) 110 mls @ 50 mls/hr IV Q12H [facility] Stop: 06/26/20 16:59 Last Admin: 06/24/20 04:51 Dose: 50 mls/hr Documented by: Potassium Chloride 20 meq/ (Dextrose) 1,010 mls @ 40 mls/hr IV .Q24H [facility] Stop: 07/23/20 18:29 Last Admin: 06/23/20 18:20 Dose: 40 mls/hr Documented by: Ipratropium [place] (Ipratropium [place] Neb Soln 0.02% 2.5 Ml Vial) 0.5 mg INH BIDR [facility] Stop: 07/18/20 18:59 Last Admin: 06/24/20 07:11 Dose: 0.5 mg Documented by: Ipratropium [place] (Ipratropium [place] Neb Soln 0.02% 2.5 Ml Vial) 0.5 mg INH Q6R PRN PRN Reason: Shortness Of Breath Or Wheezing Stop: 07/18/20 22:29 Levalbuterol HCl (Levalbuterol 1.25mg/0.5ml Neb) 1.25 mg INH BIDR [facility] Stop: 07/18/20 18:59 Last Admin: 06/24/20 07:11 Dose: 1.25 mg Documented by: Levalbuterol HCl (Levalbuterol 1.25mg/0.5ml Neb) 1.25 mg INH Q6R PRN PRN Reason: Shortness Of Breath Or Wheezing Stop: 07/19/20 00:59 Levothyroxine Sodium (Levothyroxine Sodium 175 Mcg Tablet) 175 mcg PO DAILYBB [facility] Stop: 07/14/20 06:29 Last Admin: 06/24/20 06:16 Dose: 175 mcg Documented by: Menthol (Cough Drop (Sugar Free) Charla 24 Charla/1 Box) 1 charla BUCCAL NOW PRN PRN Reason: Sore Throat Stop: 07/17/20 22:31 Prolensa~Non- Formulary Patient's Own Med 1 ea OP BID [facility] Stop: 07/14/20 08:59 Last Admin: 06/23/20 21:36 Dose: Not Given Documented by: Durezol~Non- Formulary Patient's Own Med 1 ea OP BID [facility] Stop: 07/14/20 08:59 Last Admin: 06/23/20 21:36 Dose: Not Given Documented by: Potassium Chloride (Potassium Chloride Crtab 20 Meq Tabcr) 20 meq PO QAM [facility] Stop: 07/22/20 08:59 Last Admin: 06/23/20 08:01 Dose: 20 meq Documented by: Potassium Phosphate (Pot Phosphate Monobasic W/ Sod Tab) 1 tab PO QID [facility] Stop: 07/19/20 08:59 Last Admin: 06/23/20 21:20 Dose: 1 tab Documented by: Simvastatin (Simvastatin 20 Mg Tab) 20 mg PO HS [facility] Stop: 07/13/20 20:59 Last Admin: 06/18/20 22:49 Dose: 20 mg Documented by: Vitamin D (Cholecalciferol 1,000 Units 25 Mcg Tab) [facility] [place] Stop: 07/14/20 08:59 Last Admin: 06/19/20 13:12 Dose: Not Given Documented by: (1) Acute kidney failure Acute renal failure type: unspecified Qualified Code(s): N17.9 - Acute kidney failure, unspecified
[2020-06-24] MEDS: ASPIRIN 81 MG ECTAB PO SCH (08:47)
[2020-06-24] MEDS: guaiFENesin 600 MG TABCR PO SCH ×2 (08:47→21:48)
[2020-06-24] MEDS: POT PHOSPHATE MONOBASIC W/ SOD TAB PO SCH ×4 (08:47→21:49)
[2020-06-24] MEDS: POTASSIUM CHLORIDE CRTAB 20 MEQ TABCR PO SCH ×3 (08:47→11:58)
[2020-06-24] MEDS: PROLENSA OP SCH ×2 (08:48→21:47)
[2020-06-24] MEDS: DUREZOL OP SCH ×2 (08:48→21:47)
[2020-06-24] MEDS: HEPARIN SOD 5,000 UNIT/0.5 ML VIAL SQ SCH ×2 (08:49→22:25)
--- NOTE | 2020-06-24 10:39 | Nephrology Progress Note ---
Date of Service June 24, 2020 Assessment & Plan (1) Disorders of fluid, electrolyte, and acid-base balance: Last creatinine in June 2018 was 1.12 was admitted with a serum creatinine of 1.6, which has been gradually increasing to peak at 2.9 on 06/14, down to 0.9 today. still on 4-5L and no longer w/ down trend. >>over 5L positive past 3.5 days (06/21-06/23), though still negative on the admission probably slightly overloaded>> very challenging to evaluate His potassium dropping w/ replaced rectal tube >> have cancelled lasix but can give prn if sob ON >stopped IVF for now; will give 20 po K daily -continue daily bmp -avoid IV albumin w/ hypoxia/vol OL -cont strict I/O -cont to hold CCB d/t hypotension but may be able to reintroduce if sbp goes up >>pt states he is being fed; important that this continue / eval if/when able to feed self (2) Acute kidney failure: resolved as above Admission and Anticipated Discharge Date Admission Date: June 13, 2020 Subjective breathing at baseline; down to 2LNC today; for sigmoidectomy 06/26; denies abd pain or other pain; still needs to be fed Review of Systems Review of Systems: All systems reviewed & are unremarkable except as noted in Subjective Physical Exam Constitutional: well developed, well nourished, + morbidly obese, + obese and + frail appearing; no acute distress Eyes: EOM intact bilaterally ENMT: Ears: no external ear abnormality Nose: no external nose abnormality Mouth: + dry oral mucous membranes Neck: no nuchal rigidity Respiratory: normal respiratory effort Auscultation: + diminished lung sounds Cardiovascular: Rate/Rhythm: regular rate and regular rhythm Extremities: + edema (1+ BL distal) Gastrointestinal (Abdomen): Inspection/Auscultation: normal bowel sounds Percussion/Palpation: abdomen soft; abdomen nontender rectal tube present Musculoskeletal: Extremities: + abnormal strength (gilmar R arm) Skin: no rashes, warm and dry Psychiatric: Orientation: alert, oriented to person and oriented to place Genitourinary: vann present Results & Data ([facility]) Vital Signs (Past 12 Hours) Vital Signs Temp Pulse Pulse Resp BP BP Pulse Ox 06/24/20 07:53 36.8 C 68 19 146/82 H 93 06/24/20 07:50 68 06/24/20 07:13 77 20 95 06/24/20 04:00 36.7 C 69 18 124/74 93 06/24/20 03:21 80 20 98 06/24/20 01:22 71 06/23/20 23:12 37.0 C 80 18 120/68 98 Laboratory Results 06/24/20 00:28 06/24/20 06:32 (1) Acute kidney failure Acute renal failure type: unspecified Qualified Code(s): N17.9 - Acute kidney failure, unspecified
--- NOTE | 2020-06-24 17:52 | Cardiology Consultation ---
Date of Consultation June 24, 2020 Assessment & Plan (1) Pre-operative cardiovascular exam, new EKG abnormalities c/w ischemia: Patient is a complex 79-year-old male referred for preoperative evaluation prior to planned laparoscopic sigmoidectomy. He has no prior history of myocardial infarction, angina, valvular heart disease or LV dysfunction. His history is notable for diastolic heart failure and obesity hypoventilation syndrome with pulmonary hypertension and chronic right heart failure. Current course of stay has been complicated by acute renal insufficiency and volume overload now recovered EKG on admission demonstrated newly observed right bundle branch block Recommendations: Echocardiogram will be repeated last study 2 years past. EKG repeated in a.m. Suspect no absolute contraindications to surgery however operative risk will be elevated especially in the setting of recent acute renal insufficiency. He will be at risk for further diastolic heart failure, arrhythmias, renal insufficiency and pulmonary complications given underlying history of hypercapnic failure Further recommendations pending results of studies (2) Right bundle branch block: (3) Obesity hypoventilation syndrome: (4) Chronic respiratory failure with hypercapnia: (5) Diastolic CHF, chronic: (6) Restrictive lung disease: (7) Acute kidney failure: History of Present Illness Reason for Consultation: Preoperative cardiovascular evaluation Requesting Physician: Dr. Mendoza Attending Physician: Filiberto Mendoza MD History of Present Illness Patient is a 79-year-old male with ongoing issues at per review of records both inpatient and outpatient and discussion with the patient 1. Morbid obesity 2. Obesity hypoventilation syndrome with chronic respiratory failure/ hypercapnia requiring BiPAP with O2 at night/restrictive lung disease 3. Pulmonary hypertension 4. Chart history of diastolic heart failure 5. Hypertension 6. Right bundle branch block, newly observed Review of records and discussion with patient. Patient admitted 06/13/2020 with abdominal pain constipation obstipation and possible sigmoid volvulus. Patient's undergone colonic decompression. Caregivers are contemplating possible laparoscopic sigmoidectomy. Clinical course notable for acute on chronic renal failure during this admission, diastolic heart failure currently resolved Patient currently comfortable without cardiac complaint he denies any history of angina, myocardial infarction, valvular heart disease or past arrhythmias. No syncope or near syncope. Patient sedentary about his home and ambulates with walker due to leg weakness chronically. No change in functional capacity. No recent fevers or infections. No bleeding difficulties Allergies Allergy/AdvReac Type Severity Reaction Status Date / Time No Known Allergies Allergy Verified 06/19/20 10:12 Home Medications Medication Instructions Recorded Confirmed Type amlodipine 5 mg tablet 5 mg PO QAM 11/20/18 06/13/20 History aspirin 81 mg tablet,delayed 81 mg PO QAM 11/20/18 06/13/20 History release simvastatin 20 mg tablet 20 mg PO HS tab 11/20/18 06/13/20 History bumetanide 1 mg tablet 1.5 mg PO BID tab 01/08/19 06/13/20 History cholecalciferol (vitamin D3) 25 1,000 units PO QAM 01/08/19 06/13/20 History mcg (1,000 unit) capsule colchicine 0.6 mg capsule 0.6 mg PO QAM 01/08/19 06/13/20 History CPAP Machine #1 ea 02/07/19 06/13/20 Rx Oxygen Home #1 ea 05/13/19 06/13/20 Rx calcium carbonate [Tums] 200 mg PO BID PRN 05/16/20 06/13/20 History bromfenac [Prolensa] 1 drp OPHTHALMIC (EYE) DAILY 06/13/20 06/13/20 History difluprednate [Durezol] See Rx Instructions .ROUTE .COMPLEX 06/13/20 06/13/20 History gatifloxacin See Rx Instructions .ROUTE .COMPLEX 06/13/20 06/13/20 History levothyroxine 175 mcg PO DAILYBB 06/13/20 06/13/20 History Patient History Medical History Anemia Dyslipidemia GERD (gastroesophageal reflux disease) HTN (hypertension) Hx of gout Hypothyroidism Neuropathy Obesity On home oxygen therapy 4 LPM qHS Restrictive lung disease Sleep apnea BiPAP + O2 at 4 LPM Venous insufficiency Surgical History History of cataract surgery RT. 06/03/20. [facility]. 2mg versed, 50mcg fentanyl. no issues reported. 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 Other Information That Helps Us Care for You: No Feels Safe at Home: Yes Safety Concerns: Feels Safe At This Time Assistive Devices: Oxygen - Continuous Review of Systems Review of Systems: All systems reviewed & are unremarkable except as noted in HPI & below Physical Exam Constitutional: + obese; no acute distress Eyes: PERRL, conjunctivae normal, anicteric sclerae ENMT: external ear and nose normal, oropharynx normal Neck: trachea midline, no thyromegaly Respiratory: normal respiratory effort Auscultation: + diminished lung sounds Cardiovascular: Rate/Rhythm: regular rate and regular rhythm Heart Sounds: normal S1 and normal S2; no gallop and no murmur Palpation: normal PMI Vessels: normal carotid upstroke and radial pulses present; no JVD and no carotid bruit Extremities: + edema (1-2+ with chronic stasis changes) Gastrointestinal (Abdomen): normal bowel sounds, soft, nontender, no hepatosplenomegaly Musculoskeletal: no cyanosis or clubbing, extremities motor strength 5/5 Skin: no rashes, warm and dry Neurologic: PERRL, EOMI, accommodation nl, no face palsy, no dysarthria Psychiatric: A+Ox3, euthymic affect Results & Data ([facility]) Vital Signs (Past 12 Hours) Vital Signs Temp Pulse Pulse Resp BP Pulse Ox 06/24/20 14:56 88 06/24/20 11:45 36.7 C 80 18 115/68 96 06/24/20 07:53 36.8 C 68 19 146/82 H 93 06/24/20 07:50 68 06/24/20 07:13 77 20 95 Laboratory Results Laboratory Results - last 24 hr 06/24/20 06/24/20 06/24/20 00:28 06:32 11:36 Hgb 11.0 L Hct 33.5 L Sodium 142 Potassium 3.8 Chloride 107 Carbon Dioxide 31 Anion Gap 4.0 BUN 13 Creatinine 0.54 L Est Cr Clr Drug Dosing 169.4 Est GFR ( Amer) 115.7 Est GFR (Non-Af Amer) 99.9 BUN/Creatinine Ratio 25.0 H Glucose 96 POC Glucose 106 H Calcium 8.2 L Phosphorus 3.2 Magnesium 1.9 (1) Acute kidney failure Acute renal failure type: unspecified Qualified Code(s): N17.9 - Acute kidney failure, unspecified
[2020-06-25] MEDS: DOXYCYCLINE HYCLATE 100 MG in DEXTROSE 5% 100 ML IV SCH ×2 (04:49→17:32)
[2020-06-25] MEDS: LEVOTHYROXINE SODIUM 175 MCG TABLET PO SCH (05:47)
[2020-06-25] MEDS: LEVALBUTEROL 1.25MG/0.5ML NEB INH SCH ×2 (07:20→19:31)
[2020-06-25] MEDS: IPRATROPIUM BROMIDE NEB SOLN 0.02% 2.5 ML VIAL INH SCH ×2 (07:20→19:31)
[2020-06-25 08:18] LABS: Hemoglobin 11.1 g/dL (14.0-18.0); Mean Corpuscular Hemoglobin 29.4 pg (25-34); Mean Corpuscular Hgb Conc 32.6 g/dL (32-36); Mean Corpuscular Volume 90.2 fL (80-100); Mean Platelet Volume 9.2 fL (7.4-10.4); Platelet Count 271 K/uL (130-400); RDW Coefficient of Variation 15.2 % (11.5-14.5); RDW Standard Deviation 49.4 fL (36.4-46.3); Red Blood Count 3.77 M/uL (4.7-6.1); White Blood Count 11.46 K/uL (4.8-10.8)
--- NOTE | 2020-06-25 08:23 | Surgery Progress Note ---
Date of Service June 25, 2020 Assessment & Plan (1) Dilatation of colon: 06/25/2020 Long discussion with daughter Soniya including her plan to proceed with laparoscopic assisted sigmoid colon resection for recurrent sigmoid volvulus including the possibility of not being able to do a primary anastomosis that requires a colostomy She understands what a colostomy is that she has been taking care of her mother's colostomy for years but hopefully will try to avoid it if possible Discussed with patient also the plans for surgery once cardiac evaluation is completed and will plan for tomorrow We will start the patient on p.o. antibiotics today as a bowel prep check with the pathology on the polyp that was removed shows although at best I can tell this was in the transverse colon but it was not tattooed All questions were answered Patient underwent repeat colonoscopy yesterday, a transverse colon polyp was removed, and new decompression tube placed KUB pending from this AM We have placed patient on the schedule for a laparoscopic sigmoid colon resection this upcoming with Dr. Ware Patient has received golytely yesterday. Will start some antibiotic tomorrow for additional bowel prep Okay for clear liquids from our standpoint if no further procedures today and make NPO on Tuesday at midnight Dr. Ware will get in touch with patient's daughter today to discuss upcoming surgical plans Admission and Anticipated Discharge Date Admission Date: June 13, 2020 Subjective Feels fine tolerated diet no abdominal discomfort bowels are moving Physical Exam Physical Exam: Alert coherent just got off the phone talking to his His abdomen is softer than it had been rectal tube with drainage Results & Data ([facility]) Vital Signs (Past 12 Hours) Vital Signs Temp Pulse Pulse Resp BP BP Pulse Ox 06/25/20 07:34 36.7 C 77 18 145/84 H 94 06/25/20 07:20 73 18 94 06/25/20 06:59 70 06/25/20 05:00 36.7 C 56 L 18 121/65 98 06/25/20 03:40 68 19 96 06/25/20 00:00 36.8 C 74 20 133/72 90 06/24/20 23:41 76 06/24/20 21:33 80 25 H 98 PG Care Time/CCT Total # of Minutes Spent Total Time Spent with Patient: Total time spent is greater than 50% in coordination of care (as documented) at patient's floor/unit and/or counseling patient: Coding Level of Care Code 40603 Subseq Hosp Care Lvl 3 Diagnoses Dilatation of colon K59.39
[2020-06-25 08:48] LABS: BUN Creatinine Ratio 27.8 (10-20); Calcium 8.7 mg/dl (8.5-10.1); Creatinine Clr Calc Pharmacy 204.8 ml/min; Est GFR (African American) 123.6; Est GFR (Non-African American) 106.7; Magnesium 1.9 mg/dl (1.8-2.4); Phosphorus 3.5 mg/dl (2.5-4.9); Potassium 3.9 mmol/L (3.5-5.1)
[2020-06-25] MEDS: DUREZOL OP SCH ×3 (09:12→21:01)
[2020-06-25] MEDS: PROLENSA OP SCH ×3 (09:12→21:01)
[2020-06-25] MEDS: POT PHOSPHATE MONOBASIC W/ SOD TAB PO SCH ×4 (09:13→20:53)
[2020-06-25] MEDS: POTASSIUM CHLORIDE CRTAB 20 MEQ TABCR PO SCH (09:14)
--- NOTE | 2020-06-25 09:19 | XRay Report ---
KUB HISTORY: bowel distention follow up do portable COMPARISON: KUB 06/23/2020. FINDINGS: The patient's colonic tube has been pulled back and is now looped within the distal sigmoid colon. There is persistent distention of the sigmoid colon up to 12 cm. This is similar to the prior study. Mild dilated gas-filled small bowel loops are also noted. IMPRESSION: 1. The patient's rectal tube has been pulled back and is now looped within the distal sigmoid colon. 2. No change in the distended gas-filled colon. ACT 112: Negative or not required by law. Electronically signed by: Tal Painting M.D. 06/25/2020 9:18 AM
[2020-06-25] MEDS: guaiFENesin 600 MG TABCR PO SCH ×2 (09:21→20:52)
[2020-06-25] MEDS: ASPIRIN 81 MG ECTAB PO SCH (09:21)
[2020-06-25] MEDS: HEPARIN SOD 5,000 UNIT/0.5 ML VIAL SQ SCH (11:16)
[2020-06-25 11:29] LABS: Influenza A virus by PCR Negative (Neg); Influenza B virus by PCR Negative (Neg); RSV by PCR Negative (Neg); SARS CoV2 RNA(COVID-19) InHosp NEGATIVE (Negative)
--- NOTE | 2020-06-25 14:06 | Cardiology Progress Note ---
Date of Service June 25, 2020 Assessment & Plan (1) Pre-operative cardiovascular exam, new EKG abnormalities c/w ischemia: Patient is a complex 79-year-old male referred for preoperative evaluation prior to planned laparoscopic sigmoidectomy. He has no prior history of myocardial infarction, angina, valvular heart disease or LV dysfunction. His history is notable for diastolic heart failure and obesity hypoventilation syndrome with pulmonary hypertension and chronic right heart failure. Current course of stay has been complicated by acute renal insufficiency and volume overload now recovered EKG on admission demonstrated newly observed right bundle branch block Recommendations: Echocardiogram reviewed demonstrates normal left her systolic function and no significant valvular disease EKG sinus rhythm with first-degree AV block, right bundle branch block no change or evolution Renal function stable No absolute contraindications to surgery however operative risk will be elevated especially in the setting of recent acute renal insufficiency. He will be at risk for further diastolic heart failure, arrhythmias, renal insufficiency and pulmonary complications given underlying history of hypercapnic failure Depending on course of surgery may warrant ICU follow postop (2) Right bundle branch block: (3) Obesity hypoventilation syndrome: (4) Chronic respiratory failure with hypercapnia: (5) Diastolic CHF, chronic: (6) Restrictive lung disease: (7) Acute kidney failure: Admission and Anticipated Discharge Date Admission Date: June 13, 2020 Subjective Patient without complaint overnight. No chest pain shortness of breath tachypalpitations or dizziness. Still with mild abdominal distention Physical Exam Constitutional: + obese; no acute distress Eyes: PERRL, conjunctivae normal, anicteric sclerae ENMT: external ear and nose normal, oropharynx normal Neck: trachea midline, no thyromegaly Respiratory: normal respiratory effort Auscultation: + diminished lung sounds Cardiovascular: Rate/Rhythm: regular rate and regular rhythm Heart Sounds: normal S1 and normal S2; no gallop and no murmur Palpation: normal PMI Vessels: normal carotid upstroke and radial pulses present; no JVD and no carotid bruit Extremities: + edema (1-2+ with chronic stasis changes) Gastrointestinal (Abdomen): normal bowel sounds, soft, nontender, no hepatosplenomegaly Musculoskeletal: no cyanosis or clubbing, extremities motor strength 5/5 Skin: no rashes, warm and dry Neurologic: PERRL, EOMI, accommodation nl, no face palsy, no dysarthria Psychiatric: A+Ox3, euthymic affect Results & Data ([facility]) Vital Signs (Past 12 Hours) Vital Signs Temp Pulse Pulse Resp BP Pulse Ox 06/25/20 12:02 36.5 C 81 20 121/67 94 06/25/20 07:34 36.7 C 77 18 145/84 H 94 06/25/20 07:20 73 18 94 06/25/20 06:59 70 06/25/20 05:00 36.7 C 56 L 18 121/65 98 06/25/20 03:40 68 19 96 Laboratory Results Laboratory Results - last 24 hr 06/25/20 06/25/20 06/25/20 08:01 08:01 10:21 WBC 11.46 H RBC 3.77 L Hgb 11.1 L Hct 34.0 L MCV 90.2 MCH 29.4 MCHC 32.6 RDW Std Deviation 49.4 H RDW Coeff of Maximilian 15.2 H Plt Count 271 MPV 9.2 Sodium 142 Potassium 3.9 Chloride 108 H Carbon Dioxide 30 Anion Gap 4.0 BUN 13 Creatinine 0.46 L Est Cr Clr Drug Dosing 204.8 Est GFR ( Amer) 123.6 Est GFR (Non-Af Amer) 106.7 BUN/Creatinine Ratio 27.8 H Glucose 93 Calcium 8.7 Phosphorus 3.5 Magnesium 1.9 COVID-19 Eval Order CovFluRsv at [facility] SARS-CoV-2 (PCR) Influenza Type A (PCR) Influenza Type B (PCR) RSV (RT-PCR) 06/25/20 10:21 WBC RBC Hgb Hct MCV MCH MCHC RDW Std Deviation RDW Coeff of Maximilian Plt Count MPV Sodium Potassium Chloride Carbon Dioxide Anion Gap BUN Creatinine Est Cr Clr Drug Dosing Est GFR ( Amer) Est GFR (Non-Af Amer) BUN/Creatinine Ratio Glucose Calcium Phosphorus Magnesium COVID-19 Eval Order SARS-CoV-2 (PCR) NEGATIVE Influenza Type A (PCR) Negative Influenza Type B (PCR) Negative RSV (RT-PCR) Negative (1) Acute kidney failure Acute renal failure type: unspecified Qualified Code(s): N17.9 - Acute kidney failure, unspecified
--- NOTE | 2020-06-25 14:32 | Hospitalist Progress Note ---
Date of Service June 25, 2020 Assessment & Plan (1) Dilatation of colon: 2 decompressive colonoscopies performed this admission with planned sigmoidectomy likely tomorrow. Currently tolerating p.o. and comfortable. Rectal tube in place. (2) Acute kidney failure: Improved to baseline. Continue to avoid nephrotoxic substances and renally dose meds as needed. (3) Diastolic CHF, chronic: Patient denies any issues with breathing. Volume status is challenging however, lungs are clear to auscultation and creatinine has improved back to baseline. Lasix has been stopped and Bumex has not been read nude in light of upcoming surgery with potential perioperative hypotension. Will consider restarting outpatient Bumex postoperatively pending clinical course. (4) Elevated d-dimer: D-Dimer 1070 PT had elevated d-dimer in the past Doppler of LE extremities showed no DVT unable to get a CTA chest to r/o PE due to elevate creatinine on admission Considered to get a V/Q scan, doubt that will help since pt has hx COPD with interstitial changes Cr normalized,obtained CT PE (06/18) - negative for PE (5) HTN (hypertension): BP stable Continue to hold amlodipine (6) COPD (chronic obstructive pulmonary disease): Patient wears BiPAP at night with 4L O2, Continue BIpap for now. No evidence of COPD exacerbation at this time. (7) Obesity: (8) Hypothyroidism: Cont levothyroxine 175 mcg daily (9) Gout: -Cont colchicine 0.6 mg daily (10) Sleep apnea: Continued CPAP nightly (11) DVT prophylaxis: scds/heparin subq CODE: DNR/DNI Disposition: uncertain at this time. Karli Aguilar DO [facility] Hospitalist Admission and Anticipated Discharge Date Admission Date: June 13, 2020 Subjective 79-year-old man admitted for constipation with original CT scan on 06/13 revealing marked colonic and moderate but small bowel dilation resulting in functional colonic obstruction. Surgery was consulted and followed conservative management with enemas and laxatives. On 06/19 he underwent a decompressive colonoscopy with GI with rectal tube placement. Rectal tube appeared kinked and he was rescoped on 06/23 at which point an 8 mm polyp of the transverse colon was removed with pathology pending. He is planned to undergo a laparoscopic resection of the sigmoid colon out of concern for recurrent volvulus. He currently feels well and denies any active issues. He denies any abdominal pain. Still with mild abdominal distention. currently tolerating p.o. Review of Systems Review of Systems: All systems reviewed & are unremarkable except as noted in Subjective Physical Exam Physical Exam: CONSTITUTIONAL: obese, vitals as above, generally well- appearing EYES: normal conjunctivae, no scleral icterus ENT: external ear and nose normal, MMM RESPIRATORY: clear to auscultation bilaterally, no crackles, rales or wheezes, normal respiratory effort CARDIOVASCULAR: regular rate and rhythm, S1 and 2 heard without murmurs, gallops or rubs, no JVD, no peripheral edema GASTROINTESTINAL: soft, nontender, mild distension, no guarding. : Rectal tube in place. Ibanez in place. MUSCULOSKELETAL: generalized weakness with significant weakness in his upper extremities. SKIN: warm and dry, has multiple skin abrasions covered with optifoam on left forearm, thought 2/2 IVF. NEUROLOGIC: CN 2-12 grossly intact, no sensory deficit, normal cognition, normal speech, no tremor PSYCHIATRIC: alert cooperative and oriented to person, place and time. uthymic mood, makes good eye contact, language grossly intact, recent and remote memory grossly intact. LYMPHATIC: no LAD Results & Data Results & Data ([facility]) Vital Signs (Past 12 Hours) Vital Signs Temp Pulse Pulse Resp BP Pulse Ox 06/25/20 12:02 36.5 C 81 20 121/67 94 06/25/20 07:34 36.7 C 77 18 145/84 H 94 06/25/20 07:20 73 18 94 06/25/20 06:59 70 06/25/20 05:00 36.7 C 56 L 18 121/65 98 06/25/20 03:40 68 19 96 Laboratory Results Short CBC 06/25/20 Range/Units 08:01 WBC 11.46 H (4.8-10.8) K/uL Hgb 11.1 L (14.0-18.0) g/dL Hct 34.0 L (42-52) % Plt Count 271 (130-400) K/uL BMP 06/25/20 08:01 Sodium 142 Potassium 3.9 Chloride 108 H Carbon Dioxide 30 BUN 13 Creatinine 0.46 L Glucose 93 Calcium 8.7 Medications Administered Current Inpatient Medications Acetaminophen (Acetaminophen 325 Mg Tab) 650 mg PO Q4H PRN PRN Reason: Moderate Pain Stop: 07/13/20 18:19 Amlodipine Besylate (Amlodipine Besylate 5 Mg Tab) 5 mg PO QAM [facility] Stop: 07/14/20 08:59 Last Admin: 06/14/20 11:20 Dose: 5 mg Documented by: Aspirin (Aspirin 81 Mg Ectab) 81 mg PO QAM YOSSI Stop: 07/14/20 08:59 Last Admin: 06/25/20 09:21 Dose: 81 mg Documented by: Calcium Carbonate (Calcium Carbonate 500 Mg Chewable Tab) 500 mg PO BID PRN PRN Reason: gerd Stop: 07/13/20 18:19 Last Admin: 06/15/20 18:12 Dose: 500 mg Documented by: Guaifenesin (Guaifenesin 600 Mg Tabcr) 600 mg PO Q12 YOSSI Stop: 07/19/20 08:59 Last Admin: 06/25/20 09:21 Dose: 600 mg Documented by: Heparin Sodium (Porcine) (Heparin Sod 5,000 Unit/0.5 Ml Vial) 5,000 units SQ Q12 YOSSI Stop: 07/13/20 20:59 Last Admin: 06/25/20 11:16 Dose: 5,000 units Documented by: Doxycycline Hyclate 100 mg/ (Dextrose) 110 mls @ 50 mls/hr IV Q12H [facility] Stop: 06/26/20 16:59 Last Infusion: 06/25/20 07:03 Dose: Infused Documented by: Ipratropium Douglas (Ipratropium Douglas Neb Soln 0.02% 2.5 Ml Vial) 0.5 mg INH BIDR YOSSI Stop: 07/18/20 18:59 Last Admin: 06/25/20 07:20 Dose: 0.5 mg Documented by: Ipratropium Douglas (Ipratropium Douglas Neb Soln 0.02% 2.5 Ml Vial) 0.5 mg INH Q6R PRN PRN Reason: Shortness Of Breath Or Wheezing Stop: 07/18/20 22:29 Levalbuterol HCl (Levalbuterol 1.25mg/0.5ml Neb) 1.25 mg INH BIDR YOSSI Stop: 07/18/20 18:59 Last Admin: 06/25/20 07:20 Dose: 1.25 mg Documented by: Levalbuterol HCl (Levalbuterol 1.25mg/0.5ml Neb) 1.25 mg INH Q6R PRN PRN Reason: Shortness Of Breath Or Wheezing Stop: 07/19/20 00:59 Levothyroxine Sodium (Levothyroxine Sodium 175 Mcg Tablet) 175 mcg PO DAILYBB [facility] Stop: 07/14/20 06:29 Last Admin: 06/25/20 05:47 Dose: 175 mcg Documented by: Menthol (Cough Drop (Sugar Free) Charla 24 Charla/1 Box) 1 charla BUCCAL NOW PRN PRN Reason: Sore Throat Stop: 07/17/20 22:31 Metronidazole (Metronidazole 500 Mg Tab) 500 mg PO 1400,1600,2200 [facility] Stop: 06/25/20 22:01 Neomycin Sulfate (Neomycin Sulfate 500 Mg Tab) 1,000 mg PO 1400,1600,2200 [facility] Stop: 06/25/20 22:01 Prolensa~Non- Formulary Patient's Own Med 1 ea OP BID [facility] Stop: 07/14/20 08:59 Last Admin: 06/25/20 09:12 Dose: Not Given Documented by: Durezol~Non- Formulary Patient's Own Med 1 ea OP BID [facility] Stop: 07/14/20 08:59 Last Admin: 06/25/20 09:12 Dose: Not Given Documented by: Potassium Chloride (Potassium Chloride Crtab 20 Meq Tabcr) 20 meq PO QAM [facility] Stop: 07/22/20 08:59 Last Admin: 06/24/20 11:57 Dose: 20 meq Documented by: Potassium Chloride (Potassium Chloride Crtab 20 Meq Tabcr) 20 meq PO QAM [facility] Stop: 07/24/20 11:14 Last Admin: 06/25/20 09:14 Dose: 20 meq Documented by: Potassium Phosphate (Pot Phosphate Monobasic W/ Sod Tab) 1 tab PO QID [facility] Stop: 07/19/20 08:59 Last Admin: 06/25/20 12:34 Dose: 1 tab Documented by: Simvastatin (Simvastatin 20 Mg Tab) 20 mg PO HS [facility] Stop: 07/13/20 20:59 Last Admin: 06/18/20 22:49 Dose: 20 mg Documented by: Vitamin D (Cholecalciferol 1,000 Units 25 Mcg Tab) 1,000 units PO QAM [facility] Stop: 07/14/20 08:59 Last Admin: 06/19/20 13:12 Dose: Not Given Documented by: (1) Acute kidney failure Acute renal failure type: unspecified Qualified Code(s): N17.9 - Acute kidney failure, unspecified
[2020-06-25] MEDS: metroNIDAZOLE 500 MG TAB PO SCH ×3 (14:52→20:53)
[2020-06-25] MEDS: NEOMYCIN SULFATE 500 MG TAB PO SCH ×3 (14:53→20:54)
--- NOTE | 2020-06-25 15:22 | Electrocardiogram Report ---
Test Reason : Blood Pressure : / mmHG Vent. Rate : 068 BPM Atrial Rate : 068 BPM P-R Int : 306 ms QRS Dur : 150 ms QT Int : 442 ms P-R-T Axes : 021 -05 -01 degrees QTc Int : 469 ms Sinus rhythm with 1st degree A-V block Right bundle branch block Abnormal ECG When compared with ECG of 13-JUN-2020 13:31, QRS axis Shifted right QT has shortened Confirmed by Ras Poole ([id number]) on 06/25/2020 3:21:45 PM Referred By: REFERRED SELF Confirmed By:Elton Poole
--- NOTE | 2020-06-25 16:09 | Anesthesiology Consultation ---
Date of Service June 25, 2020 As per cardiology, the patient is at increased but acceptable operative risk due to his history of diastolic heart failure, right heart failure, obesity hypoventilation syndrome, pulmonary hypertension, and recent acute renal failu re. He will be at risk for heart failure, arrhythmias, pulmonary complications, and renal failure. He may require postoperative ICU care depending on his operative course. Assessment & Plan (1) Encounter for pre-operative examination: Chart Review Chart Review: Acceptable Risk for Surgery (necessary surgery) and Patient NOT seen in Pre Admission Testing Consults Requested none medicine and cardiology are following the patient History Surgery Operation Date: 06/19/20 16:30 Proposed Procedures p Colonoscopy Dr Krish Rutherford DO Operation Date: 06/23/20 16:00 Proposed Procedures p Colonoscopy Dr Aguilar Sheikh MD Operation Date: 06/26/20 11:45 Proposed Procedures p Laparoscopic Colon Resection - Hugo Ware MD, FACS Height/Weight Height: 6 ft 6 in Weight: 140.9 kg Allergies Allergy/AdvReac Type Severity Reaction Status Date / Time No Known Allergies Allergy Verified 06/19/20 10:12 Medications Home Medications Medication Instructions Recorded Confirmed Last Taken amlodipine 5 mg tablet 5 mg PO QAM 11/20/18 06/13/20 06/13/20 aspirin 81 mg tablet,delayed 81 mg PO QAM 11/20/18 06/13/20 06/12/20 release simvastatin 20 mg tablet 20 mg PO HS tab 11/20/18 06/13/20 06/13/20 bumetanide 1 mg tablet 1.5 mg PO BID tab 01/08/19 06/13/20 06/13/20 cholecalciferol (vitamin D3) 25 1,000 units PO QAM 01/08/19 06/13/20 06/13/20 mcg (1,000 unit) capsule colchicine 0.6 mg capsule 0.6 mg PO QAM 01/08/19 06/13/20 06/13/20 CPAP Machine #1 ea 02/07/19 06/13/20 Unknown Oxygen Home #1 ea 05/13/19 06/13/20 Unknown calcium carbonate [Tums] 200 mg PO BID PRN 05/16/20 06/13/20 06/13/20 bromfenac [Prolensa] 1 drp OPHTHALMIC (EYE) DAILY 06/13/20 06/13/20 06/13/20 difluprednate [Durezol] See Rx Instructions .ROUTE .COMPLEX 06/13/20 06/13/20 06/13/20 gatifloxacin See Rx Instructions .ROUTE .COMPLEX 06/13/20 06/13/20 Unknown levothyroxine 175 mcg PO DAILYBB 06/13/20 06/13/20 06/13/20 Active Medications Generic Name Dose Route Start Last Admin Trade Name Freq PRN Reason Stop Dose Admin Amlodipine Besylate 5 mg 06/14/20 09:00 06/14/20 11:20 Amlodipine Besylate 5 Mg Tab PO 07/14/20 08:59 5 mg QAM YOSSI Administration Aspirin 81 mg 06/14/20 09:00 06/25/20 09:21 Aspirin 81 Mg Ectab PO 07/14/20 08:59 81 mg QAM YOSSI Administration Calcium Carbonate 500 mg 06/13/20 18:20 06/15/20 18:12 Calcium Carbonate 500 Mg Chewable Tab PO 07/13/20 18:19 500 mg BID PRN Administration gerd Guaifenesin 600 mg 06/19/20 09:00 06/25/20 09:21 Guaifenesin 600 Mg Tabcr PO 07/19/20 08:59 600 mg Q12 YOSSI Administration Heparin Sodium (Porcine) 5,000 units 06/13/20 21:00 06/25/20 11:16 Heparin Sod 5,000 Unit/0.5 Ml Vial SQ 07/13/20 20:59 5,000 units Q12 YOSSI Administration Doxycycline Hyclate 100 mg/ 110 mls @ 50 mls/hr 06/19/20 17:00 06/25/20 07:03 Dextrose IV 06/26/20 16:59 Infused Q12H YOSSI Infusion Ipratropium [place] 0.5 mg 06/18/20 19:00 06/25/20 07:20 Ipratropium [place] Neb Soln 0.02% 2.5 Ml Vial INH 07/18/20 18:59 0.5 mg BIDR YOSSI Administration Levalbuterol HCl 1.25 mg 06/18/20 19:00 06/25/20 07:20 Levalbuterol 1.25mg/0.5ml Neb INH 07/18/20 18:59 1.25 mg BIDR YOSSI Administration Levothyroxine Sodium 175 mcg 06/14/20 06:30 06/25/20 05:47 Levothyroxine Sodium 175 Mcg Tablet PO 07/14/20 06:29 175 mcg DAILYBB YOSSI Administration Metronidazole 500 mg 06/25/20 14:00 06/25/20 16:15 Metronidazole 500 Mg Tab PO 06/25/20 22:01 500 mg 1400,1600,2200 YOSSI Administration Neomycin Sulfate 1,000 mg 06/25/20 14:00 06/25/20 16:16 Neomycin Sulfate 500 Mg Tab PO 06/25/20 22:01 1,000 mg 1400,1600,2200 YOSSI Administration Prolensa~Non- 1 ea 06/14/20 09:00 06/25/20 09:12 Formulary Patient's OP 07/14/20 08:59 Not Given Own Med BID YOSSI Durezol~Non- 1 ea 06/14/20 09:00 06/25/20 09:12 Formulary Patient's OP 07/14/20 08:59 Not Given Own Med BID YOSSI Potassium Chloride 20 meq 06/22/20 09:00 06/24/20 11:57 Potassium Chloride Crtab 20 Meq Tabcr PO 07/22/20 08:59 20 meq QAM YOSSI Administration Potassium Chloride 20 meq 06/24/20 11:15 06/25/20 09:14 Potassium Chloride Crtab 20 Meq Tabcr PO 07/24/20 11:14 20 meq QAM YOSSI Administration Potassium Phosphate 1 tab 06/19/20 09:00 06/25/20 12:34 Pot Phosphate Monobasic W/ Sod Tab PO 07/19/20 08:59 1 tab QID YOSSI Administration Simvastatin 20 mg 06/13/20 21:00 06/18/20 22:49 Simvastatin 20 Mg Tab PO 07/13/20 20:59 20 mg HS YOSSI Administration Vitamin D 1,000 units 06/14/20 09:00 06/19/20 13:12 Cholecalciferol 1,000 Units 25 Mcg Tab PO 07/14/20 08:59 Not Given QAM YOSSI NPO Date Last Intake of Fluids: 06/23/20 Time Last Intake of Fluids: 12:00 Date Last Intake of Solids: 06/23/20 Time Last Intake of Solids: 08:30 Last Intake of Solids Comment: full liquids Past Medical History Medical History Acute kidney failure on 06/14/20 Anemia Dyslipidemia GERD (gastroesophageal reflux disease) HTN (hypertension) Hx of gout Hypothyroidism Neuropathy Obesity On home oxygen therapy 4 LPM qHS Restrictive lung disease Sleep apnea BiPAP + O2 at 4 LPM Venous insufficiency Past Family History Family History Father Hypertension Mother Lung cancer Aunt Diabetes Aunt Diabetes Other No family history of adverse response to anesthesia No significant family history Past Surgical History Surgical History History of cataract surgery RT. 06/03/20. [facility]. 2mg versed, 50mcg fentanyl. no issues reported. History of colonoscopy Social History Smoking Status: Former smoker Smoking End Date: 1961 Hx Alcohol Use: No Hx Substance Use: No Physical Exam Vital Signs Last Vital Signs Temp 36.8 C 06/25/20 15:11 Pulse 88 06/25/20 15:11 Resp 18 06/25/20 15:11 BP 145/84 H 06/25/20 15:11 Pulse Ox 95 06/25/20 15:11 Testing Laboratory Results 06/25/20 08:01 06/25/20 08:01 PT 11.4 Seconds (9.0-12.0) 06/13/20 13:37 INR 1.1 (0.9-1.1) 06/13/20 13:37 APTT 22.5 Seconds (21.0-31.0) 06/13/20 13:37 Urine Color Dark Yellow 06/15/20 18:55 Urine Appearance Cloudy (Clear) A 06/15/20 18:55 Urine pH 5.0 (4.5-7.5) 06/15/20 18:55 Ur Specific [place] 1.018 (1.000-1.030) 06/15/20 18:55 Urine Protein 1+ (Negative) H 06/15/20 18:55 Urine Glucose (UA) Negative (Negative) 06/15/20 18:55 Urine Ketones Trace (Negative) H 06/15/20 18:55 Urine Nitrite Negative (Negative) 06/15/20 18:55 Ur Leukocyte Esterase Trace (Negative) H 06/15/20 18:55 Urine WBC (Auto) 1-5 /hpf (0-5) 06/15/20 18:55 Urine RBC (Auto) >30 /hpf (0-4) H 06/15/20 18:55 U Hyaline Cast (Auto) 1-5 /lpf (0-5) 06/15/20 18:55 U Epithel Cells (Auto) 10-20 /lpf (0-5) H 06/15/20 18:55 Urine Bacteria (Auto) 1+ (Negative) H 06/15/20 18:55 Blood Type O Positive 06/25/20 14:41 Antibody Screen NEGATIVE 06/25/20 14:41 06/18/20 12:38 Aerobic Blood Culture - Final Blood No growth in Aerobic bottle after 5 days. Anaerobic Blood Culture - Final No growth in Anaerobic bottle after 5 days. 06/18/20 12:50 Aerobic Blood Culture - Final Blood No growth in Aerobic bottle after 5 days. Anaerobic Blood Culture - Final No growth in Anaerobic bottle after 5 days. 06/13/20 22:28 Aerobic Blood Culture - Final Blood No growth in Aerobic bottle after 5 days. Anaerobic Blood Culture - Final No growth in Anaerobic bottle after 5 days. 06/13/20 22:41 Aerobic Blood Culture - Final Blood No growth in Aerobic bottle after 5 days. Anaerobic Blood Culture - Final No growth in Anaerobic bottle after 5 days. 06/13/20 22:11 Urine Culture - Final Urine,Clean Catch More than three types of organisms present, all moderate counts mixed probable skin pravin. No further identifications or sensitivities to follow. Electrocardiogram Date: 06/25/20 Findings: + RBBB SR with 1st degree A-V block, rate 68 Echocardiogram Date: 06/25/20 EF: 65-70 LV Function: normal Other Findings: + LVH (moderate concentric) and + diastolic dysfunction (grade 1) sigmoid septum Other Testing CT ANGIOGRAPHY OF THE CHEST, PULMONARY EMBOLUS PROTOCOL CLINICAL HISTORY: Shortness of breath. Evaluate for pulmonary embolus. COMPARISON STUDY: Chest CT June 21, 2018. Chest radiograph June 13, 2020. TECHNIQUE: Following IV administration of 119 mL of Optiray-320, helical axial images of the chest were obtained utilizing the pulmonary embolus protocol. Maximal intensity projections and sagittal and coronal reformats were viewed on an independent 3D workstation. IV contrast was administered without complication. Automated exposure control was utilized for the study. A dose lowering technique was utilized adhering to the principles of ALARA. CT DOSE: 854.94 mGy.cm FINDINGS: No pulmonary emboli are identified although the segmental and subsegmental pulmonary arteries are suboptimally assessed on this examination. There is dilatation of the central pulmonary arteries. Heart is moderately enlarged. There is no pericardial effusion. No thoracic lymphadenopathy is present. There is no thoracic aortic dissection. No pneumothorax or pleural effusion is noted. Extensive bilateral lower lobe airspace opacities are present with volume loss. There are additional groundglass opacities within the lungs. There is mild interlobular septal thickening. Right hepatic lobe lesion repres ents a cyst. IMPRESSION: 1. No pulmonary emboli identified although segmental and subsegmental pulmonary arteries suboptimally assessed on this exam. 2. Extensive bilateral lower lobe airspace opacities with volume loss which favors atelectasis although pneumonia could appear similar. 3. Additional groundglass opacities within the lungs could reflect an infectious process or pulmonary edema. 4. Dilatation of the central pulmonary arteries which suggests pulmonary arterial hypertension. 5. Moderate cardiomegaly. ACT 112: Negative or not required by law.
[2020-06-26] MEDS: DOXYCYCLINE HYCLATE 100 MG in DEXTROSE 5% 100 ML IV SCH (05:32)
[2020-06-26] MEDS: LEVOTHYROXINE SODIUM 175 MCG TABLET PO SCH (05:32)
[2020-06-26] MEDS: LEVALBUTEROL 1.25MG/0.5ML NEB INH SCH ×2 (07:35→19:55)
[2020-06-26] MEDS: IPRATROPIUM BROMIDE NEB SOLN 0.02% 2.5 ML VIAL INH SCH ×2 (07:35→19:55)
[2020-06-26] MEDS: POTASSIUM CHLORIDE CRTAB 20 MEQ TABCR PO SCH ×2 (08:06→08:08)
[2020-06-26] MEDS: POT PHOSPHATE MONOBASIC W/ SOD TAB PO SCH ×4 (08:07→21:27)
[2020-06-26] MEDS: PROLENSA OP SCH ×2 (08:08→21:27)
[2020-06-26] MEDS: DUREZOL OP SCH ×2 (08:08→21:26)
[2020-06-26] MEDS: guaiFENesin 600 MG TABCR PO SCH ×2 (08:09→21:27)
[2020-06-26] MEDS: ASPIRIN 81 MG ECTAB PO SCH (08:10)
[2020-06-26] MEDS ORDERED: ROCURONIUM BROMIDE 10 MG/ML 5 ML VIAL IV ONE ×2 (11:05→13:24)
[2020-06-26] MEDS ORDERED: PROPOFOL IV EMULSION 10 MG/ML 20 ML VIAL IV ONE (11:05)
[2020-06-26] MEDS ORDERED: fentaNYL citrate 100 MCG/2 ML VIAL ONE ×2 (11:06→15:26)
[2020-06-26] MEDS ORDERED: LIDOCAINE HCL 2% 2 ML VIAL/AMP(20MG/ML) INFIL ONE (11:06)
--- NOTE | 2020-06-26 11:21 | History & Physical Bridge Note ---
Date of Service June 26, 2020 History & Physical Bridge Note I have examined the patient, reviewed the History & Physical and in the interval since the performance of the History & Physical I have noted the following changes of clinical significance: no changes noted Patient had a good night still has some liquid drainage through the rectum to although x-ray yesterday revealed that the decompression tube was kinked in the sigmoid colon his abdomen is unchanged from yesterday possibly more temporary but he is having no pain no tenderness at this point surgery again was discussed with the patient including bleeding infection failure to heal heart attack and he would like to proceed accordingly we will try to laparoscopic visualize the colon will need an open incision to remove the colon unlikely there will need a colostomy that decision is being made intraoperatively I talked with the daughter Soniya yesterday and all questions were answered
[2020-06-26] MEDS ORDERED: ONDANSETRON INJ 2 MG/ML 2 ML VIAL IV PRN (11:30)
[2020-06-26] MEDS ORDERED: HYDROmorphone INJ 1 MG/ML SYRINGE IV PRN (11:30)
[2020-06-26] MEDS ORDERED: ATROPINE SULFATE 0.1 MG/ML 10ML SYR IV PRN (11:30)
[2020-06-26] MEDS ORDERED: BUPIVACAINE 0.5 % 5 MG/1 ML MPF 30ML VIAL ONE (11:32)
[2020-06-26] MEDS ORDERED: SUGAMMADEX SODIUM 200 MG/2 ML VIAL IV ONE (11:36)
[2020-06-26] MEDS ORDERED: HYDROmorphone INJ 2 MG/ML SYR/VIAL ONE (13:12)
[2020-06-26] MEDS ORDERED: SUCCINYLCHOLINE CHLORIDE 20 MG/ML 10 ML VIAL IV ONE (13:25)
[2020-06-26] MEDS ORDERED: ePHEDrine sulfate 50 MG/ML SYR ONE (15:01)
[2020-06-26] MEDS ORDERED: PHENYLEPHRINE 100MCG/ML 5ML SYR ONE (15:01)
--- NOTE | 2020-06-26 15:38 | Post Operative Brief Note ---
PG Immediate Post Op with CF Date of Surgery June 26, 2020 Pre & Post Diagnosis Operation Date: 06/19/20 16:30 Pre-Op Diagnosis: CONSTIPATION Post-Op Diagnosis: Colon decompression with tube placement Operation Date: 06/23/20 16:00 Pre-Op Diagnosis: CONSTIPATION Post-Op Diagnosis: Dilated colon Operation Date: 06/26/20 11:45 Pre-Op Diagnosis: Dilatation of colon Post-Op Diagnosis: Recurrent sigmoid volvulus I identified the patient and participated in the time-out.: Yes Procedure Operation Date: 06/19/20 16:30 Actual Procedures p Colonoscopy with Decompression Tube Jody - Gerri Rutherford DO Operation Date: 06/23/20 16:00 Actual Procedures s Colonoscopy Polypectomy - Rito Sheikh MD p Colonoscopy with Decompression Tube Jody - Rito Sheikh MD Operation Date: 06/26/20 11:45 Actual Procedures p Laparoscopy converted to laparotomy, resection of descending sigmoid colon, partial rectal resection, gastrostomy - Hugo Ware MD, FACS Surgeon Hugo Ware MD, FACS Curriculum Assistant Principal hao brown MD and Javier kaye Estimated Blood Loss 200 Findings Consistent with Post-Op Diagnosis Specimens Specimen Description: A. Descending colon sigmoid rectal Drains Jac Drain, Vann Catheter, Isa Drain (1/2" and 1/4"), Rectal Tube (removed intraoperatively) and Other (18 [place]ymraes vann used for a gastrostomy tube by surgeon)
--- NOTE | 2020-06-26 15:59 | Operative Report ---
PG Post Operative Report Pre & Post Diagnosis Operation Date: 06/19/20 16:30 Pre-Op Diagnosis: CONSTIPATION Post-Op Diagnosis: Colon decompression with tube placement Operation Date: 06/23/20 16:00 Pre-Op Diagnosis: CONSTIPATION Post-Op Diagnosis: Dilated colon Operation Date: 06/26/20 11:45 Pre-Op Diagnosis: Dilatation of colon Post-Op Diagnosis: Recurrent sigmoid volvulus I identified the patient and participated in the time-out.: Yes Procedure Operation Date: 06/19/20 16:30 Actual Procedures p Colonoscopy with Decompression Tube Plac - Gerri Rutherford DO Operation Date: 06/23/20 16:00 Actual Procedures s Colonoscopy Polypectomy - Rito Sheikh MD p Colonoscopy with Decompression Tube Jody - Rito Sheikh MD Operation Date: 06/26/20 11:45 Actual Procedures p Laparoscopy converted to laparotomy, resection of descending sigmoid colon, partial rectal resection, gastrostomy - Hugo Ware MD, FACS The patient was brought into the operating theater placed in the beanbag under general endotracheal anesthesia anesthesia put a triple-lumen right internal jugular line for venous access the abdomen was shaved and prepped byline scrub solution properly draped the patient had antibiotics on board patient identified a timeout was had this point small incision made supraumbilically sufficiently enough to enter the fascia where stay sutures of 0 Vicryl was used and a 5 mm trocar was entered on direct visualization CO2 insufflated once we were in the meeting identify that the patient's had a pretty much the left side of the abdomen with dilated sigmoid colon that he had had a recurrence of this but her main interest to see was not the rest of the bowel appeared viable which as well as its mostly dilated small bowel the cecum appeared viable. At this point we took the scope out and then closed the opening tying the fascial suture of 0 Vicryl. Prior tension was taken Versed sigmoid: Ring recurrent volvulus and incision was made intermediate between the umbilicus and symphysis pubis transversely above the iliac crest on the left deepened to subcutaneous tissue went onto the external fascia which we opened along the course of its fibers as the internal fascia we extended all the way down to the anterior rectus muscle fascia probably a quarter the way we then transversalis fascia was opened immediately under the peritoneum where we were met with a markedly dilated colon as we worked on this colon were able to then delivered the sigmoid colon that was redundant quite large as expected clinically and radiographically. This point we straighten out and then we took the mesentery down and dilatation was all the way down to the distal sigmoid rectal area. The mesentery to the sigmoid colon was taken down using the ligature once we had enough mobilization of this we took down all the way and the peritoneal reflection was strictly adherent to the rectal in that area which we freed it up. At this point we used a 60 ROZINA stapler then resected the descending colon proximal to the sigmoid dilatation and then using the ligature as stated and freed up the sigmoid colon where we down to the sigmoid rectal junction this point will put an intestinal clamp distally once proximally and divided the colon and took it off the operative field. The viability of the sigmoid rectal junction was excellent good bleeding the mesentery was controlled wall 3 L letter with silk sutures. This point we will plan to do the proximal line of resection which we identified a ROZINA just bloodless area we oversewed that area after we decided to resect another foot or so a proximal since the patient had a significant amount of descending colon and we are wanted to avoid any possibility of future volvulus station of the proximal colon using another fire to 60 ROZINA we divided the colon staple line there was oversewn with 3-0 interrupted suture the mesentery between this descending colon and the rectum was then closed on direct visualization with 3-0 interrupted silk suture making sure that there was no herniation. We then did a side to side anastomosis using 3-0 silk outer layer 2-0 chromic inner layer. An astomosis was quite patent probably had a length of approximately 5 to 6 cm and pretty much reflecting dilatation of the rectum area the area was checked hemostasis appear satisfactory we irrigated copiously actually the bowel prep was significant no significant stool was liquid liquid contents which we irrigated the area and had very minimal spillage but instead that the elected to close the pelvic area with a drain we used a Jac drain 19 round placed through a stab wound inferior to the incision and aligned around to the anterior the rectal colonic anastomosis. An attempt was made to place the NG tube in the stomach we were unable to really deliver it and seem to be hanging up we had multiple times at the EG junction. At this time I felt that since the patient has significant COPD the GI function will take a while until returned that he probably needed a gastrostomy tube I was not able to reach the stomach from this incision therefore we closed this incision on the left lower quadrant in multiple layers using 905 chromic for the internal Bleich peritoneum in a running fashion then we used a #1 PDS closing the anterior rectus fascia all the way to the external fascia. We closed the subcu by placing a 5/8 Apache drain attached to the proximal distended incision with 3-0 silk suture subcu was brought together with 2-0 Vicryl and jonh for skin edges this point attention was turned to place a gastrostomy tube we made an incision probably about 5 cm from the xiphoid in the midline we are able to enter the abdominal cavity without any difficulty although we were immediately met with a significant amount of intestinal distention as we had anticipated that took some time then we finally were able to identify the stomach and using a [place] we brought her into the operative field where we were able to free enough to place a gastrostomy tube stab wound left of the midline incision was made and #5 Ibanez catheter brought up onto the field 18 Pakistani was positioned through this and 2 pursestring of 3-0 silk was used along the greater curvature the stomach and the Ibanez catheter was positioned in the stomach the balloon was blown to 5 cm the 2 pursestrings were tied and we attached this to the anterior abdominal wall after pulling up the gastrostomy tube with 3-0 interrupted silk suture attached to the Ibanez cath of the skin edge with 2-0 Vicryl suture. Prior to inserting the Ibanez catheter we checked the balloon appeared intact. This point we closed the abdomen by closing the peritoneum with 905 continuous fashion #1 PDS continuous fashion as for the linea alba. Subcutaneous tissue irrigated jonh for skin edges at this point the noticed there was sponge missing therefore we reopened the incision and retrieved that. Then we closed the incision in a similar fashion that we had opened up. Quarter inch Apache placed in the subcu and jonh for skin edges dressing was applied procedure was tolerated well estimate blood loss approximately 250 cc addendum given the nature of the patient who is 6.6 and over 300 lbs and critically ill and required help from Dr. Hao Moses another surgeon and also Javier kaye to expedite and help with critically ill patient. Surgeon Hugo Ware MD, FACS Interior Designer hao moses MD and Javier kaye Estimated Blood Loss 200 Findings Consistent with Post-Op Diagnosis Specimens descending and sigmoid colon Description of Procedure merda I attest to the content of the Intraoperative Record and any orders documented therein. Any exceptions are noted below.
--- NOTE | 2020-06-26 16:27 | Hospitalist Progress Note ---
Date of Service June 26, 2020 Assessment & Plan (1) Dilatation of colon: 2 decompressive colonoscopies performed this admission with sigmoidectomy today. Currently n.p.o., rectal tube in place, recovering in ICU. (2) Acute kidney failure: Improved to baseline. Continue to avoid nephrotoxic substances and renally dose meds as needed. (3) Diastolic CHF, chronic: Patient denies any issues with breathing. Volume status is challenging however, lungs are clear to auscultation and creatinine has improved back to baseline. Lasix has been stopped and Bumex has not been read nude in light of upcoming surgery with potential perioperative hypotension. Will consider restarting outpatient Bumex postoperatively pending clinical course. (4) Elevated d-dimer: D-Dimer 1070 PT had elevated d-dimer in the past Doppler of LE extremities showed no DVT unable to get a CTA chest to r/o PE due to elevate creatinine on admission Considered to get a V/Q scan, doubt that will help since pt has hx COPD with interstitial changes Cr normalized,obtained CT PE (06/18) - negative for PE (5) HTN (hypertension): BP stable Continue to hold amlodipine (6) COPD (chronic obstructive pulmonary disease): Patient wears BiPAP at night with 4L O2, Continue BIpap for now. No evidence of COPD exacerbation at this time. (7) Obesity: (8) Hypothyroidism: Cont levothyroxine 175 mcg daily (9) Gout: -Cont colchicine 0.6 mg daily (10) Sleep apnea: Continued CPAP nightly (11) DVT prophylaxis: SCDs CODE: DNR/DNI Disposition: uncertain at this time. Karli Aguilar DO [facility] Hospitalist Admission and Anticipated Discharge Date Admission Date: June 13, 2020 Subjective Recovering in the ICU after his laparoscopic sigmoid removal, reports abdominal pain is approximately 5 out of 10 but is feeling well overall. No other associated symptoms. Slightly concerned about his very dry mouth. Review of Systems Review of Systems: All systems reviewed & are unremarkable except as noted in Subjective Physical Exam Physical Exam: CONSTITUTIONAL: obese, vitals as above, generally well- appearing EYES: normal conjunctivae, no scleral icterus ENT: external ear and nose normal, MMM RESPIRATORY: clear to auscultation bilaterally, no crackles, rales or wheezes, normal respiratory effort CARDIOVASCULAR: regular rate and rhythm, S1 and 2 heard without murmurs, gallops or rubs, no JVD, no peripheral edema GASTROINTESTINAL: soft, nontender, nondistended, no guarding. : Rectal tube in place. Ibanez in place. MUSCULOSKELETAL: generalized weakness with significant weakness in his upper extremities. SKIN: warm and dry, has multiple skin abrasions covered with optifoam on left forearm, thought 2/2 IVF. NEUROLOGIC: CN 2-12 grossly intact, no sensory deficit, normal cognition, normal speech, no tremor PSYCHIATRIC: alert cooperative and oriented to person, place and time. uthymic mood, makes good eye contact, language grossly intact, recent and remote memory grossly intact. LYMPHATIC: no LAD Results & Data Results & Data ([facility]) Vital Signs (Past 12 Hours) Vital Signs Temp Pulse Pulse Resp BP Pulse Ox 06/26/20 16:20 74 22 157/79 H 96 06/26/20 16:10 71 22 159/86 H 96 06/26/20 16:01 36.0 C L 75 20 154/75 H 94 06/26/20 10:40 36.4 C L 84 20 145/81 H 95 06/26/20 07:37 85 18 92 06/26/20 07:35 36.5 C 83 18 134/71 91 Medications Administered Current Inpatient Medications Acetaminophen (Acetaminophen 325 Mg Tab) 650 mg PO Q4H PRN PRN Reason: Moderate Pain Stop: 07/13/20 18:19 Amlodipine Besylate (Amlodipine Besylate 5 Mg Tab) 5 mg PO [facility] Stop: 07/14/20 08:59 Last Admin: 06/14/20 11:20 Dose: 5 mg Documented by: Aspirin (Aspirin 81 Mg Ectab) 81 mg PO [facility] Stop: 07/14/20 08:59 Last Admin: 06/26/20 08:10 Dose: Not Given Documented by: Atropine Sulfate (Atropine Sulfate 0.1 Mg/Ml 10ml Syr) 0.5 mg IV Q1M PRN PRN Reason: PACU Use-HR<40 &/or Bradycardi Stop: 06/26/20 19:30 Calcium Carbonate (Calcium Carbonate 500 Mg Chewable Tab) 500 mg PO BID PRN PRN Reason: gerd Stop: 07/13/20 18:19 Last Admin: 06/15/20 18:12 Dose: 500 mg Documented by: Guaifenesin (Guaifenesin 600 Mg Tabcr) 600 mg PO Q12 [facility] Stop: 07/19/20 08:59 Last Admin: 06/26/20 08:09 Dose: 600 mg Documented by: Heparin Sodium (Porcine) (Heparin Sod 5,000 Unit/0.5 Ml Vial) 5,000 units SQ Q12 [facility] Stop: 07/13/20 20:59 Last Admin: 06/25/20 11:16 Dose: 5,000 units Documented by: Hydromorphone HCl (Hydromorphone Inj 1 Mg/Ml Syringe) 0.25 mg IV Q5M PRN PRN Reason: PACU Use Only-Pain Stop: 06/26/20 19:30 Doxycycline Hyclate 100 mg/ (Dextrose) 110 mls @ 50 mls/hr IV Q12H [facility] Stop: 06/26/20 16:59 Last Infusion: 06/26/20 08:18 Dose: Infused Documented by: Ipratropium Reynolds (Ipratropium Reynolds Neb Soln 0.02% 2.5 Ml Vial) 0.5 mg INH BIDR [facility] Stop: 07/18/20 18:59 Last Admin: 06/26/20 07:35 Dose: 0.5 mg Documented by: Ipratropium Reynolds (Ipratropium Reynolds Neb Soln 0.02% 2.5 Ml Vial) 0.5 mg INH Q6R PRN PRN Reason: Shortness Of Breath Or Wheezing Stop: 07/18/20 22:29 Levalbuterol HCl (Levalbuterol 1.25mg/0.5ml Neb) 1.25 mg INH BIDR [facility] Stop: 07/18/20 18:59 Last Admin: 06/26/20 07:35 Dose: 1.25 mg Documented by: Levalbuterol HCl (Levalbuterol 1.25mg/0.5ml Neb) 1.25 mg INH Q6R PRN PRN Reason: Shortness Of Breath Or Wheezing Stop: 07/19/20 00:59 Levothyroxine Sodium (Levothyroxine Sodium 175 Mcg Tablet) 175 mcg PO DAILYBB [facility] Stop: 07/14/20 06:29 Last Admin: 06/26/20 05:32 Dose: 175 mcg Documented by: Menthol (Cough Drop (Sugar Free) Charla 24 Charla/1 Box) 1 charla BUCCAL NOW PRN PRN Reason: Sore Throat Stop: 07/17/20 22:31 Prolensa~Non- Formulary Patient's Own Med 1 ea OP BID [facility] Stop: 07/14/20 08:59 Last Admin: 06/26/20 08:08 Dose: Not Given Documented by: Durezol~Non- Formulary Patient's Own Med 1 ea OP BID [facility] Stop: 07/14/20 08:59 Last Admin: 06/26/20 08:08 Dose: Not Given Documented by: Ondansetron HCl (Ondansetron Inj 2 Mg/Ml 2 Ml Vial) 4 mg IV ONCE PRN PRN Reason: PACU Use Only-Nausea/Vomiting Stop: 06/26/20 19:31 Potassium Chloride (Potassium Chloride Crtab 20 Meq Tabcr) 20 meq PO QAM [facility] Stop: 07/22/20 08:59 Last Admin: 06/26/20 08:06 Dose: 20 meq Documented by: Potassium Chloride (Potassium Chloride Crtab 20 Meq Tabcr) 20 meq PO QAM [facility] Stop: 07/24/20 11:14 Last Admin: 06/26/20 08:08 Dose: 20 meq Documented by: Potassium Phosphate (Pot Phosphate Monobasic W/ Sod Tab) 1 tab PO QID [facility] Stop: 07/19/20 08:59 Last Admin: 06/26/20 08:07 Dose: 1 tab Documented by: Simvastatin (Simvastatin 20 Mg Tab) 20 mg PO HS [facility] Stop: 07/13/20 20:59 Last Admin: 06/18/20 22:49 Dose: 20 mg Documented by: Vitamin D (Cholecalciferol 1,000 Units 25 Mcg Tab) 1,000 units PO QAM [facility] Stop: 07/14/20 08:59 Last Admin: 06/19/20 13:12 Dose: Not Given Documented by: (1) Acute kidney failure Acute renal failure type: unspecified Qualified Code(s): N17.9 - Acute kidney failure, unspecified
--- NOTE | 2020-06-26 16:39 | XRay Report ---
XR chest 1V portable CLINICAL HISTORY: Post line placement when he gets out of the OR COMPARISON STUDY: 06/13/2020 FINDINGS: The heart is enlarged. There are low lung volumes. There is a right internal jugular centra l venous catheter the tip which projects over the superior vena cava. No pneumothorax is visualized. There are bibasilar atelectatic changes. Lucency at the right lung base, likely represents visualizat ion of the minor fissure as opposed to free intraperitoneal air. There is mild pulmonary vascular con gestion.[ IMPRESSION: 1. Cardiomegaly, radiographic evidence of pulmonary vascular congestion. 2. Low lung volumes with bibasilar opacities likely atelectatic 3. Right internal jugular central venous catheter with its tip projected over the superior vena cava. No evidence of pneumothorax ACT 112: Negative or not required by law. Electronically signed by: Mike Thomas M.D. 06/26/2020 4:38 PM
--- NOTE | 2020-06-26 16:39 | Critical Care Progress Note ---
Date of Service June 26, 2020 Assessment & Plan (1) Right bundle branch block: Reason Critically Ill: Lorenzo is a 79-year-old man with a history of HFpEF, hypertension, hyperlipidemia, concentric LVH, pulmonary hypertension, COPD, obesity hypoventilation syndrome, hypothyroidism, and RAIN requiring CPAP who is now admitted to the ICU postop from a sigmoidectomy in the setting of colonic obstruction with subsequent sigmoid volvulus. Neuro - [facility] ICU: Negative. Sedation: None Analgesia: Tylenol, Dilaudid * Without significant history of neurologic disease or insult * Neurologically intact on postoperative exams * Continue home Durezol, Prolensa (s/p cataract surgery) * Continue analgesia, will monitor Cardiac - Heart Failure with Preserved Ejection Fraction * Echocardiography on 06/25 demonstrating concentric LVH with LVEF 65-70%, no RWMAs, moderate aortic valve calcifications without significant flow impairment * Has required diuresis throughout this admission for signs of volume overload * Now achieving net negative fluid balance throughout this admission * Hold home Bumex for now will add back on if signs of SOB, volume overload * Strict I+Os Hypertension * Hypertensive throughout POD-0 -- 150s/90s * Restart home amlodipine tomorrow * Monitor NIBPs Hyperlipidemia / Vascular Protection * Hold simvastatin, ASA Respiratory - Chronic Hypercapnic Respiratory Failure with Acute Hypoxia * Patient with known history of obesity hyperventilation syndrome, RAIN requiring CPAP use at night, pulmonary HTN, and ?COPD * Throughout hospital course, has required daytime O2 via NC likely multifactorial in etiology, including hypervolemia and thoracic compression by increased abdominal pressures in setting of volvulus * CT-A Chest (06/18) without evidence of PE, but +extensive bilateral lower lobe opacities (?atelectasis vs. 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 qAM * Monitor UOP in setting of recent surgery * BMP qAM - * History of BPH, not on medications * Maintain Ibanez catheter * No concerns at present ENDO - * Hypothyroidism continue levothyroxine * Hyperglycemia protocol per ICU HEME - * Monitor for drops in H&H in setting of recent surgery and anticoagulation ID - * Patient previously noted to have elevated procalcitonin (7) and lactate that subsequently down trended earlier in hospital course * In the setting of the lower lobe opacities appreciated on CT-A, was initially on Zosyn and Doxycycline Zosyn subsequently discontinued * BCX demonstrating NG x 5 days (drawn 06/18) * Continue/discontinue doxycycline IV (end 06/26) INTEGUMENTARY - * Continue to monitor, clean laparoscopic insertion sites * No other concerns LINES/IV ACCESS - Central line, 20g PIV LUE, Ibanez DVT PROPHYLAXIS - * Resume anticoagulation when appropriate * Continue Heparin SQ prophylactic dosing for now * Consider transition to Lovenox now that renal function has recovered Code Status: DNR/DNI Thank you for allowing us to be part of this patient's care. Please refer to Dr. Gabriel's documentation for any further recommendations. (2) HTN (hypertension): (3) Hypothyroidism: (4) Obesity: (5) Obesity hypoventilation syndrome: (6) Chronic respiratory failure with hypercapnia: (7) Respiratory failure with hypoxia and hypercapnia: (8) Diastolic CHF, chronic: (9) COPD (chronic obstructive pulmonary disease): (10) Sleep apnea: Admission and Anticipated Discharge Date Admission Date: June 13, 2020 Supervising Physician Co-Signing Physician Notes Dr. Lopez was the resident-physician during care of patient. I separately evaluated patient for chin portions of the history and the exam. I was present during the critical portion of medical decision making, and I discussed the case with the resident. I generally agree with the findings and plan except for any additions/exceptions noted. Patient seen and examined at bedside. Patient has prolonged hospitalization for his underlying volvulus. He was finally taken to the OR on 06/26/2020. He has sigmoidectomy. At the time of examination patient has G-tube as well as the drainage in place. Patient denied any abdominal pain. No nausea or vomiting. Denied any shortness of breath, no headache, no chest pain. He has a Ibanez catheter and urinating well. On physical exam he had decreased air entry as well as distant heart sounds, mild crackles bilateral lower lobes Belly is soft, decreased bowel sounds, dressing in place +2 pitting edema bilateral lower extremity Continue with IV fluids. Pain management. Monitor strict in and out. BiPAP nightly and as needed shortness of breath. Resume heparin once cleared by surgery. Patient has right IJ. Please note the above document was generated using voice recognition software. It may contain grammatical, syntax or spelling errors.Any formal questions or concerns about the content, text or information contained within the body of this dictation should be directly addressed to the provider for clarification. David Ventura is a 79-year-old man with a history of HFpEF, hypertension, hyperlipidemia, concentric LVH, pulmonary hypertension, COPD, obesity hypoventilation syndrome, hypothyroidism, and RAIN requiring CPAP who is now admitted to the ICU postop from a sigmoidectomy in the setting of colonic obstruction with subsequent sigmoid volvulus. Patient presented to [facility] on June 12 for evaluation of abdominal pain and distention. He was found to have functional colonic obstruction to the distal sigmoid and rectum. Throughout the beginning of his course, patient did not experience a big improvement in his symptoms. On June 18, an NG tube was placed. On June 19, KUB demonstrated findings concerning for sigmoid volvulus. GI planned and performed an urgent colonoscopy with decompression, with placement of a rectal tube. Over the following days, unfortunately there is not much improvement from a GI standpoint, and as such laparoscopic sigmoidectomy was pursued on 06/26. His course has also been notable for acute hypoxic respiratory failure is well as a transient, but now resolved, LIZZ. Throughout his course, he has required between 2 and 5 L/min by nasal cannula; he does not require oxygen at baseline. Chest CTA performed on June 18 did not reveal any PEs, but did reveal extensive bilateral lower lobe opacities favoring atelectasis over pneumonia. There were also groundglass opacities within the lung concerning for pulmonary edema. He was noted to have a positive fluid balance. He underwent diuresis with good success. He was also started on inhalers. Of note, in the setting of these findings as well as a previously elevated procalcitonin, lactate patient was initiated on Zosyn and doxycycline to cover for possible pulmonary infection. Zosyn was discontinued, however he has remained on doxycycline. His operation was uncomplicated. He underwent resection of the descending colon to the sigmoid dilatation. Anastomosis was created thereafter. An NGT placement was attempted but due to difficulties a gastrostomy tube was placed instead. Because of poor peripheral access a central line was placed. Ibanez in place too. EBL 250cc. He was extubated prior to delivery to ICU. Upon his arrival to the ICU was noted to be mildly hypertensive and on OxyMask at 10 lpm but hemodynamically stable. Reports feeling well. Mild abdominal pain but overall not bad. Arms painful at previous venipuncture sites. Denies chest pain, palpitations, SOB. No weakness in arms/legs. Review of Systems Review of Systems: as per HPI Physical Exam Physical Exam: General: 79 year old male who is alert, oriented, and appears in no acute distress. Appearing well perfused, somewhat tired Body habitus: obese. HEENT: NCAT. Eyes - Sclera are white, anicteric, and without injection. PERRL. EOMs display full ROM bilaterally. Mouth - MMM with no tonsillar edema or exudates. R central line in place. Cardiac: Technically difficult exam given habitus. Normal rate and regular rhythm; S1 and S2 present with no murmurs, rubs, or gallops. Pulmonary: Good respiratory effort with symmetric expansion of the chest. NC in place. No use of accessory muscles. Lungs were clear to auscultation bilaterally with no crackles or wheezes. Abdominal: Hypoactive BS. Bandage in place, c/d/i. MAYELIN tube. Mild distention; no rebound or guarding. Extremities: Upper and lower extremities are warm and well perfused. R PIV in place. Bandages atop the antebrachium b/l with surrounding ecchymoses. Psych: A+O x 3. Well-developed, well-nourished, appropriately dressed for occasi on. Behavior is cooperative and appropriate. Affect is WNL. Insight is appropriate. Results & Data Results & Data ([facility]) Vital Signs (Past 12 Hours) Vital Signs Temp Pulse Pulse Resp BP Pulse Ox 06/26/20 16:20 74 22 157/79 H 96 06/26/20 16:10 71 22 159/86 H 96 06/26/20 16:01 36.0 C L 75 20 154/75 H 94 06/26/20 10:40 36.4 C L 84 20 145/81 H 95 06/26/20 07:37 85 18 92 06/26/20 07:35 36.5 C 83 18 134/71 91 Resident Activity Tracking Resident Involvement: Resident Care Provided Care Provided: Adult [facility] Medicine (1) Respiratory failure with hypoxia and hypercapnia Chronicity: acute on chronic Qualified Code(s): J96.21 - Acute and chronic respiratory failure with hypoxia; J96.22 - Acute and chronic respiratory failure with hypercapnia
--- NOTE | 2020-06-26 16:45 | Anesthesiology Progress Note ---
Date of Service June 26, 2020 Anesthesia Post Procedure Vital Signs Vital Signs: Temp Pulse Pulse Pulse Resp BP Pulse Ox 06/26/20 16:30 72 25 H 152/91 H 94 06/26/20 16:20 74 22 157/79 H 96 06/26/20 16:10 71 22 159/86 H 96 06/26/20 16:01 36.0 C L 75 20 154/75 H 94 06/26/20 10:40 36.4 C L 84 20 145/81 H 95 06/26/20 07:37 85 18 92 06/26/20 07:35 36.5 C 83 18 134/71 91 06/26/20 03:19 36.8 C 79 20 127/73 99 06/26/20 00:06 77 06/25/20 23:57 36.9 C 85 18 139/76 97 06/25/20 21:55 83 24 99 06/25/20 19:37 37.0 C 88 20 137/74 94 06/25/20 19:32 80 18 94 Transfer of Care Handoff Completed per policy Notes Mental Status: alert / awake / arousable and participated in evaluation Patient Amnestic to Procedure: Yes Nausea / Vomiting: adequately controlled Pain: adequately controlled Airway Patency, RR, SpO2: stable & adequate BP & HR: stable & adequate Hydration State: stable & adequate Anesthetic Complications: no major complications apparent and Pt Satisfied with anesthetic care
[2020-06-26] MEDS: NSS + 20MEQ KCL 20 MEQ/1,000 ML BAG IV SCH (17:58)
[2020-06-26] MEDS ORDERED: ICU PROTOCOL FOR HYPERGLYCEMIA PRN (22:02)
[2020-06-26] MEDS ORDERED: traMADol HCL 50 MG TABLET PO PRN (22:42)
[2020-06-26] MEDS ORDERED: MoRPHine SULFATE 4 MG/ML 1 ML CARP\\VIAL IV PRN (22:42)
[2020-06-26] MEDS ORDERED: ACETAMINOPHEN 325 MG TAB PO PRN (22:42)
[2020-06-27] MEDS: NSS + 20MEQ KCL 20 MEQ/1,000 ML BAG IV SCH ×2 (00:38→08:06)
[2020-06-27] MEDS: LEVOTHYROXINE SODIUM 175 MCG TABLET PO SCH (05:29)
[2020-06-27] MEDS: ACETAMINOPHEN 1,000 MG/100 ML VIAL IV PRN (05:40)
[2020-06-27 05:46] LABS: BUN Creatinine Ratio 20.7 (10-20); Creatinine Clr Calc Pharmacy 120.6 ml/min; Est GFR (Non-African American) 85.4; Magnesium 1.8 mg/dl (1.8-2.4); Phosphorus 4.1 mg/dl (2.5-4.9)
[2020-06-27 05:52] LABS: Basophils # (auto) 0.03 K/uL (0-0.2); Basophils % (auto) 0.1 %; Eosinophils # (auto) 0.01 K/uL (0-0.5); Hematocrit (blood only) 31.4 % (42-52); Hemoglobin 10.3 g/dL (14.0-18.0); Immature Granulocytes # (auto) 0.16 K/uL (0.00-0.02); Immature Granulocytes % (auto) 0.5 %; Lymphocytes # (auto) 1.32 K/uL (1.2-3.4); Lymphocytes % (auto) 4.3 %; Mean Corpuscular Hemoglobin 30.1 pg (25-34); Mean Corpuscular Hgb Conc 32.8 g/dL (32-36); Mean Corpuscular Volume 91.8 fL (80-100); Mean Platelet Volume 9.5 fL (7.4-10.4); Monocytes # (auto) 1.44 K/uL (0.11-0.59); Monocytes % (auto) 4.6 %; Neutrophils # (auto) 28.04 K/uL (1.4-6.5); Neutrophils % (auto) 90.5 %; Platelet Count 390 K/uL (130-400); RDW Coefficient of Variation 16.2 % (11.5-14.5); RDW Standard Deviation 53.6 fL (36.4-46.3); Red Blood Count 3.42 M/uL (4.7-6.1)
[2020-06-27] MEDS: MAGNESIUM SULFATE / D5W 1 GM/100 ML BAG IV SCH ×2 (06:17→08:07)
[2020-06-27] MEDS: IPRATROPIUM BROMIDE NEB SOLN 0.02% 2.5 ML VIAL INH SCH ×2 (07:04→20:04)
[2020-06-27] MEDS: LEVALBUTEROL 1.25MG/0.5ML NEB INH SCH ×2 (07:04→20:04)
--- NOTE | 2020-06-27 07:36 | Surgery Progress Note ---
Date of Service June 27, 2020 Assessment & Plan (1) Dilatation of colon: 06/27/20 POD#1 Intraoperative findings were discussed with the patient including the need to place a gastrostomy tube since unable to place an NG tube and discussed with him that it may be want to the normal GI function returns We will have IV team accessed the midline that he has in his right upper arm the patient does have a triple-lumen catheter inserted can be used for IV access and can be used for hyperalimentation at the patient most likely will need depending how he does in the next day or so with his GI function IV fluids are going to 150 and feels sufficient watch him closely since the patient does have an element of unknown congestive heart failure Patient can certainly be transferred out of the ICU if okay with the medical service Meds can be given p.o. or through the G-tube making sure that the G-tube is clamped for about 20 minutes after oral meds are given the meantime I would like to place the G-tube to low intermittent suction rather than just gravity drainage All questions were answered with the nurses 06/25/2020 Long discussion with daughter Soniya including her plan to proceed with laparoscopic assisted sigmoid colon resection for recurrent sigmoid volvulus including the possibility of not being able to do a primary anastomosis that requires a colostomy She understands what a colostomy is that she has been taking care of her mother's colostomy for years but hopefully will try to avoid it if possible Discussed with patient also the plans for surgery once cardiac evaluation is completed and will plan for tomorrow We will start the patient on p.o. antibiotics today as a bowel prep check with the pathology on the polyp that was removed shows although at best I can tell this was in the transverse colon but it was not tattooed All questions were answered Patient underwent repeat colonoscopy yesterday, a transverse colon polyp was removed, and new decompression tube placed KUB pending from this AM We have placed patient on the schedule for a laparoscopic sigmoid colon resection this upcoming with Dr. Ware Patient has received golytely yesterday. Will start some antibiotic tomorrow for additional bowel prep Okay for clear liquids from our standpoint if no further procedures today and make NPO on Tuesday at midnight Dr. Ware will get in touch with patient's daughter today to discuss upcoming surgical plans Admission and Anticipated Discharge Date Admission Date: June 13, 2020 Subjective Had a fairly good night main issue some pain in his right elbow and being thirsty Physical Exam Physical Exam: Alert coherent comfortable with the above stated complaints The abdomen is softer than preop some tenderness along the incision the G-tube is on to gravity drainage with minimal output The urine is dark concentrated Results & Data ([facility]) Vital Signs (Past 12 Hours) Vital Signs Temp Pulse Pulse Resp BP Pulse Ox 06/27/20 06:30 85 23 93/57 L 98 06/27/20 06:00 86 20 98 06/27/20 05:30 86 39 H 113/67 95 06/27/20 05:00 90 25 H 100/64 97 06/27/20 04:30 88 24 93/61 L 97 06/27/20 04:07 89 18 97 06/27/20 04:00 90 25 H 102/61 96 06/27/20 03:30 87 26 H 99/56 L 96 06/27/20 02:30 82 24 105/64 96 06/27/20 02:10 84 22 96 06/27/20 02:00 85 25 H 104/61 97 06/27/20 01:50 85 22 96 06/27/20 01:40 82 19 96 06/27/20 01:00 85 22 102/67 97 06/27/20 00:30 85 24 111/69 97 06/27/20 00:00 36.7 C 81 22 115/70 97 06/26/20 23:44 82 06/26/20 23:30 81 23 117/65 97 06/26/20 23:00 80 21 109/67 97 06/26/20 22:30 80 23 121/75 96 06/26/20 22:05 82 18 96 06/26/20 22:00 79 23 111/70 97 06/26/20 21:30 79 24 129/71 97 06/26/20 21:00 85 26 H 125/75 86 L 06/26/20 20:30 81 27 H 136/76 94 06/26/20 20:11 83 34 H 06/26/20 20:00 36.4 C L 84 27 H 137/82 93 06/26/20 19:57 77 18 95 lab noted with the increase in white count and left shift likely related to her manipulation of the surgery BUN and creatinine are acceptable his hemoglobin stable PG Care Time/CCT Total # of Minutes Spent Total Time Spent with Patient: Total time spent is greater than 50% in coordination of care (as documented) at patient's floor/unit and/or counseling patient: Coding Level of Care Code None Diagnoses Dilatation of colon K59.39
--- NOTE | 2020-06-27 08:01 | Nephrology Progress Note ---
Date of Service June 27, 2020 Assessment & Plan (1) Disorders of fluid, electrolyte, and acid-base balance: Last creatinine in June 2018 was 1.12 was admitted with a serum creatinine of 1.6, which has been gradually increasing to peak at 2.9 on 06/14, plateau'd at about 0.8 for several days now. still on 4L and no longer w/ down trend. -mild hypernatremia, high normal K and normal phos on supplements, elevated bicarb ; 02 needs at his hospital baseline but relative hypotension >>over 5L positive past 3.5 days (06/21-06/23), though still negative on the admission >>changed NS w/ 20 mEq K to LR at 150 >>recheck chem ordered for 1500 >> can give lasix prn if worsening dyspnea ON -continue daily bmp -avoid IV albumin w/ hypoxia/vol OL -cont strict I/O >>pt states he is being fed when taking po; important that this continue / eval if/when able to feed self (2) Acute kidney failure: resolved as above Admission and Anticipated Discharge Date Admission Date: June 13, 2020 Subjective seen on rounds at 0900 this am; tolerated procedure yesterday well; denies abd pain, worsening or any sob; ongoing + thirst Review of Systems Review of Systems: All systems reviewed & are unremarkable except as noted in Subjective Physical Exam Constitutional: well developed, well nourished and + obese; no acute distress Eyes: + anicteric sclerae and EOM intact bilaterally ENMT: Ears: no external ear abnormality Nose: no external nose abnormality Mouth: + dry oral mucous membranes Neck: no nuchal rigidity Respiratory: normal respiratory effort; no labored breathing and no cough Auscultation: lungs clear to auscultation bilaterally and + diminished lung sounds Cardiovascular: RRR, no murmur, no edema Gastrointestinal (Abdomen): Percussion/Palpation: abdomen soft; abdomen nontender drain/bandage LLQ Musculoskeletal: Extremities: + abnormal strength Skin: no rashes, warm and dry Neurologic: cary, fluent speech, + intention tremor Psychiatric: A+Ox3, euthymic affect Genitourinary: vann present ample ligth yellow urine Results & Data ([facility]) Vital Signs (Past 12 Hours) Vital Signs Temp Pulse Pulse Resp BP Pulse Ox 06/27/20 07:04 82 18 93 04/23/21 06:30 85 23 93/57 L 98 06/27/20 06:00 86 20 98 06/27/20 05:30 86 39 H 113/67 95 06/27/20 05:00 90 25 H 100/64 97 06/27/20 04:30 88 24 93/61 L 97 06/27/20 04:07 89 18 97 06/27/20 04:00 90 25 H 102/61 96 06/27/20 03:30 87 26 H 99/56 L 96 06/27/20 02:30 82 24 105/64 96 06/27/20 02:10 84 22 96 06/27/20 02:00 85 25 H 104/61 97 06/27/20 01:50 85 22 96 06/27/20 01:40 82 19 96 06/27/20 01:00 85 22 102/67 97 06/27/20 00:30 85 24 111/69 97 06/27/20 00:00 36.7 C 81 22 115/70 97 06/26/20 23:44 82 06/26/20 23:30 81 23 117/65 97 06/26/20 23:00 80 21 109/67 97 06/26/20 22:30 80 23 121/75 96 06/26/20 22:05 82 18 96 06/26/20 22:00 79 23 111/70 97 06/26/20 21:30 79 24 129/71 97 06/26/20 21:00 85 26 H 125/75 86 L 06/26/20 20:30 81 27 H 136/76 94 06/26/20 20:11 83 34 H 06/26/20 20:00 36.4 C L 84 27 H 137/82 93 06/26/20 19:57 77 18 95 Laboratory Results 06/27/20 05:01 06/27/20 05:01 Diagnostic Findings cxr 06/26 reviewed (1) Acute kidney failure Acute renal failure type: unspecified Qualified Code(s): N17.9 - Acute kidney failure, unspecified
[2020-06-27] MEDS ORDERED: LACTATED RINGER'S 1,000 ML IV STA (08:23)
--- NOTE | 2020-06-27 08:48 | Critical Care Progress Note ---
Date of Service June 27, 2020 Assessment & Plan (1) Right bundle branch block: Reason Critically Ill: Lorenzo is a 79-year-old man with a history of HFpEF, hypertension, hyperlipidemia, concentric LVH, pulmonary hypertension, COPD, obesity hypoventilation syndrome, hypothyroidism, and RAIN requiring CPAP who is now admitted to the ICU postop from a sigmoidectomy in the setting of colonic obstruction with subsequent sigmoid volvulus. Neuro - [facility] ICU: Negative. Sedation: None Analgesia: Tylenol, Dilaudid * Without significant history of neurologic disease or insult * Neurologically intact on postoperative exams * Continue home Durezol, Prolensa (s/p cataract surgery) * Requiring minimal amounts of analgesia at present - will monitor Cardiac - Heart Failure with Preserved Ejection Fraction * Echocardiography on 06/25 demonstrating concentric LVH with LVEF 65-70%, no RWMAs, moderate aortic valve calcifications without significant flow impairment * Has required diuresis throughout this admission for signs of volume overload * Hold home Bumex for now will add back on if signs of SOB, signs of volume overload * Patient is about 1.5L positive right now from yesterday -- lower mIVF to 1 Lpm * No signs of volume overload on exam today * Strict I+Os Hypertension * Initially hypertensive post-op, but now slightly more on HoTN side * Hold home amlodipine * Monitor NIBPs Hyperlipidemia / Vascular Protection * Hold simvastatin, ASA Respiratory - Chronic Hypercapnic Respiratory Failure with Acute Hypoxia * Patient with known history of obesity hyperventilation syndrome, RAIN requiring CPAP use at night (@ 4L), pulmonary HTN, and ?COPD * Throughout hospital course, has required daytime O2 via NC likely multifactorial in etiology, including hypervolemia and thoracic compression by increased abdominal pressures in setting of volvulus * CT-A Chest (06/18) without evidence of PE, but +extensive bilateral lower lobe opacities (?atelectasis vs. infectious) alongside ground glass opacities within the lung * Consider diuresis should signs of hypervolemia persist * Doxycycline for infectious coverage * Continue ipratropium, levalbuterol, Guaifenesin (note- these are new during admission) * Continue doxycycline * Recommend PFTs as outpatient * Encourage incentive spirometry GI - Functional Sigmoid Obstruction with Subsequent Sigmoid Volvulus * Now s/p sigmoidectomy with anastomosis * Advance diet as tolerated * Monitor UOP * Maintain G-, MAYELIN tube RENAL/LYTES - * No history of significant renal disease * LIZZ earlier in course, subsequently resolved * Nephrology has been following * Discontinue KCl supplementation as K = 5 on AM labs * Repeat BMP at 1300 -- consider K lowering therapy if still high * Monitor UOP in setting of recent surgery - * History of BPH, not on medications * Maintain Ibanez catheter * No concerns at present ENDO - * Hypothyroidism continue levothyroxine * Hyperglycemia protocol per ICU HEME - * Monitor for drops in H&H in setting of recent surgery and anticoagulation ID - * Patient previously noted to have elevated procalcitonin (7) and lactate that subsequently down trended earlier in hospital course * In the setting of the lower lobe opacities appreciated on CT-A, was initially on Zosyn and Doxycycline discontinued * BCX demonstrating NG x 5 days (drawn 06/18) * Notable leukocytosis with neutrophilic predominance, shift -- suspect 2/2 recent surgery; afebrile, feeling well - monitor INTEGUMENTARY - * Continue to monitor, clean laparoscopic insertion sites * No other concerns LINES/IV ACCESS - Central line, 20g PIV LUE, Ibanez DVT PROPHYLAXIS - * Resume anticoagulation when appropriate * Continue Heparin SQ prophylactic dosing for now * Consider transition to Lovenox now that renal function has recovered Code Status: DNR/DNI Thank you for allowing us to be part of this patient's care. Please refer to Dr. Gabriel's documentation for any further recommendations. (2) HTN (hypertension): (3) Hypothyroidism: (4) Obesity: (5) Obesity hypoventilation syndrome: (6) Chronic respiratory failure with hypercapnia: (7) Respiratory failure with hypoxia and hypercapnia: (8) Diastolic CHF, chronic: (9) COPD (chronic obstructive pulmonary disease): (10) Sleep apnea: Admission and Anticipated Discharge Date Admission Date: June 13, 2020 Supervising Physician Co-Signing Physician Notes Dr. Lopez was the resident-physician during care of patient. I separately evaluated patient for chin portions of the history and the exam. I was present during the critical portion of medical decision making, and I discussed the case with the resident. I generally agree with the findings and plan except for any additions/exceptions noted. Patient seen and examined at bedside. No acute distress, no adverse events overnight. Denies any chest pain, no shortness of breath, no nausea or vomiting. Having water steps. Denies any abdominal pain. No flatulence. MAYELIN drain in place. Abdomen is soft, decreased bowel sounds, dressing and drain in place Decreased air entry bilaterally, mild crackles bilateral lower lobes, S1-S2 positive, distant heart sounds +2 edema bilateral lower extremity Patient urine output has decreased. --Prophylaxis VTE: IPC's, heparin GI: None Lines: Right IJ Diet: N.p.o. Plan: In/out: +2530, urine output 635 Patient's potassium is a bit on the higher side. P.o. potassium replacement has been stopped. Currently getting LR at 100 mL/h. Look for improvement in urine output. Nephrology on board. I will repeat BMP at 1. Leukocytosis is likely reactive to surgery. We will just monitor. Patient is hemodynamically stable to be sent to medical floor. Patient is DNR/DNI Please note the above document was generated using voice recognition software. It may contain grammatical, syntax or spelling errors.Any formal questions or concerns about the content, text or information contained within the body of this dictation should be directly addressed to the provider for clarification. Subjective No acute events overnight. At the bedside this morning, patient reports feeling well and without significant pain. Does report feeling thirsty and would like to try liquids when approved by surgery. He denies any chest pain, palpitations, shortness of breath. Not yet passing gas. Vital signs reviewed, mildly hypotensive overnight. Review of Systems Review of Systems: As per HPI Physical Exam Physical Exam: General: 79 year old male who is alert, oriented, and appears in no acute distress. Appearing well perfused, somewhat tired Body habitus: obese. HEENT: NCAT. Eyes - Sclera are white, anicteric, and without injection. PERRL. EOMs display full ROM bilaterally. Mouth - MMM with no tonsillar edema or exu dates. R central line in place. Cardiac: Technically difficult exam given habitus. Normal rate and regular rhythm; S1 and S2 present with no murmurs, rubs, or gallops. Pulmonary: Good respiratory effort with symmetric expansion of the chest. NC in place. No use of accessory muscles. Lungs were clear to auscultation bilaterally with no crackles or wheezes. Abdominal: Hypoactive BS persist. Bandage in place, c/d/i. MAYELIN tube. Mild distention; no rebound or guarding. Extremities: Upper and lower extremities are warm and well perfused. R PIV in place. Bandages atop the antebrachium b/l with surrounding ecchymoses. +2 pitting edema bilateral lower extremity Psych: A+O x 3. Well-developed, well-nourished, appropriately dressed for occasion. Behavior is cooperative and appropriate. Affect is WNL. Insight is appropriate. Results & Data Results & Data ([facility]) Vital Signs (Past 12 Hours) Vital Signs Temp Pulse Pulse Resp BP Pulse Ox 06/27/20 07:04 82 18 93 06/27/20 06:30 85 23 93/57 L 98 06/27/20 06:00 86 20 98 06/27/20 05:30 86 39 H 113/67 95 06/27/20 05:00 90 25 H 100/64 97 06/27/20 04:30 88 24 93/61 L 97 06/27/20 04:07 89 18 97 06/27/20 04:00 90 25 H 102/61 96 06/27/20 03:30 87 26 H 99/56 L 96 06/27/20 02:30 82 24 105/64 96 06/27/20 02:10 84 22 96 06/27/20 02:00 85 25 H 104/61 97 06/27/20 01:50 85 22 96 06/27/20 01:40 82 19 96 06/27/20 01:00 85 22 102/67 97 06/27/20 00:30 85 24 111/69 97 06/27/20 00:00 36.7 C 81 22 115/70 97 06/26/20 23:44 82 06/26/20 23:30 81 23 117/65 97 06/26/20 23:00 80 21 109/67 97 06/26/20 22:30 80 23 121/75 96 06/26/20 22:05 82 18 96 06/26/20 22:00 79 23 111/70 97 06/26/20 21:30 79 24 129/71 97 06/26/20 21:00 85 26 H 125/75 86 L 06/27/20 05:01 06/27/20 05:01 Resident Activity Tracking Resident Involvement: Resident Care Provided Care Provided: Adult Hospital Medicine (1) Respiratory failure with hypoxia and hypercapnia Chronicity: acute on chronic Qualified Code(s): J96.21 - Acute and chronic respiratory failure with hypoxia; J96.22 - Acute and chronic respiratory failure with hypercapnia
[2020-06-27] MEDS: guaiFENesin 600 MG TABCR PO SCH ×2 (08:49→21:10)
[2020-06-27] MEDS: PROLENSA OP SCH ×3 (08:50→21:10)
[2020-06-27] MEDS: ASPIRIN 81 MG ECTAB PO SCH (08:50)
[2020-06-27] MEDS: DUREZOL OP SCH ×3 (08:51→21:10)
--- NOTE | 2020-06-27 11:44 | Billing Data ---
Date of Service June 26, 2020 Coding Level of Care Code 11467 Initial Inpt Care Lvl 3
--- NOTE | 2020-06-27 11:51 | Billing Data ---
Date of Service June 27, 2020 Coding Level of Care Code 09799 Subseq Hosp Care Lvl 3
--- NOTE | 2020-06-27 11:53 | XRay Report ---
KUB CLINICAL HISTORY: Status post colon resection. FINDINGS: 3 AP, portable, supine abdominal radiographs are compared to study dated 06/25/2020. Correla tion is made with abdominal CT dated 06/13/2020. There are midline skin clips the upper abdomen with a surgical drain in place. Skin clips and a surgical drain are also seen in the left lower quadrant. Th ere is gaseous distention of the small bowel loops and colon. Small bowel loops measure up to 5.5 cm. No evidence of intraperitoneal free air is seen on these supine views. There are no abnormal abdomin al calcifications. Phleboliths are seen in the pelvis. The skeletal structures are osteopenic and lilibeth ear intact. There is lumbosacral spondylosis. IMPRESSION: 1. Postoperative changes as above. 2. There is gaseous distention of the small bowel loops and colon, likely representing a postoperativ e ileus. Developing obstruction could appear similar and clinical correlation will be essential. Electronically signed by: Jose Thornton M.D. 06/27/2020 11:52 AM
--- NOTE | 2020-06-27 12:27 | Hospitalist Progress Note ---
Date of Service June 27, 2020 Assessment & Plan (1) Dilatation of colon: 2 decompressive colonoscopies performed this admission with sigmoidectomy 06/26. Currently n.p.o., pain managed. Cont management per surgery. Move patient out of bed as soon as able to help wtih swelling and deconditioning. (2) Acute kidney failure: Improved to baseline. Continue to avoid nephrotoxic substances and renally dose meds as needed. (3) Diastolic CHF, chronic: Patient denies any issues with breathing. Volume status is challenging however, lungs are clear to auscultation and creatinine has improved back to baseline. On IVF per nephrology, cont to monitor. (4) Elevated d-dimer: D-Dimer 1070 PT had elevated d-dimer in the past Doppler of LE extremities showed no DVT unable to get a CTA chest to r/o PE due to elevate creatinine on admission Considered to get a V/Q scan, doubt that will help since pt has hx COPD with interstitial changes Cr normalized,obtained CT PE (06/18) - negative for PE (5) HTN (hypertension): BP stable Continue to hold amlodipine (6) COPD (chronic obstructive pulmonary disease): Patient wears BiPAP at night with 4L O2, Continue BIpap for now. No evidence of COPD exacerbation at this time. (7) Obesity: -BMI of 37.6 (8) Hypothyroidism: Cont levothyroxine 175 mcg daily (9) Gout: -Cont colchicine 0.6 mg daily (10) Sleep apnea: Continued CPAP nightly (11) DVT prophylaxis: SCDs CODE: DNR/DNI Disposition: uncertain at this time. Karli Aguilar DO [facility] Hospitalist Admission and Anticipated Discharge Date Admission Date: June 13, 2020 Subjective 79 yo M with dilation of colon s/p sigmoid resection and gastrostomy placement on 06/26. Reports abdominal pain is managed with medications. He remains NPO Denies fevers, chills, chest pain, SOB or abdominal pain. Doing well overall. Review of Systems Review of Systems: All systems reviewed & are unremarkable except as noted in Subjective Physical Exam Physical Exam: CONSTITUTIONAL: obese, vitals as above, generally well- appearing EYES: normal conjunctivae, no scleral icterus ENT: external ear and nose normal, MMM RESPIRATORY: clear to auscultation bilaterally, no crackles, rales or wheezes, normal respiratory effort. Limited exam as patient is large and very weak, not easily maneuvered in the bed. CARDIOVASCULAR: regular rate and rhythm, S1 and 2 heard without murmurs, gallops or rubs, no JVD, no peripheral edema GASTROINTESTINAL: soft, nontender, nondistended, no guarding. : Ibanez in place. MUSCULOSKELETAL: generalized weakness with significant weakness in his upper extremities. SKIN: warm and dry, has multiple skin abrasions with some blistering that broke open, covered with optifoam on left forearm. NEUROLOGIC: CN 2-12 grossly intact, no sensory deficit, normal cognition, normal speech, no tremor PSYCHIATRIC: alert cooperative and oriented to person, place and time. Euthymic mood, makes good eye contact, language grossly intact, recent and remote memory grossly intact. LYMPHATIC: no LAD Results & Data Results & Data ([facility]) Vital Signs (Past 12 Hours) Vital Signs Temp Pulse Pulse Resp BP Pulse Ox 06/27/20 10:00 79 23 95 06/27/20 09:58 81 29 H 106/57 L 96 06/27/20 09:00 83 24 95 06/27/20 08:30 85 26 H 101/58 L 96 06/27/20 08:00 36.8 C 82 23 106/56 L 96 06/27/20 07:30 83 22 100/53 L 96 06/27/20 07:04 82 18 93 06/27/20 07:00 83 33 H 93/50 L 88 L 06/27/20 06:30 85 23 93/57 L 98 06/27/20 06:00 86 20 98 06/27/20 05:30 86 39 H 113/67 95 06/27/20 05:00 90 25 H 100/64 97 06/27/20 04:30 88 24 93/61 L 97 06/27/20 04:07 89 18 97 06/27/20 04:00 90 25 H 102/61 96 06/27/20 03:30 87 26 H 99/56 L 96 06/27/20 02:30 82 24 105/64 96 06/27/20 02:10 84 22 96 06/27/20 02:00 85 25 H 104/61 97 06/27/20 01:50 85 22 96 06/27/20 01:40 82 19 96 06/27/20 01:00 85 22 102/67 97 06/27/20 00:30 85 24 111/69 97 Laboratory Results Short CBC 06/27/20 Range/Units 05:01 WBC 31.00 H* (4.8-10.8) K/uL Hgb 10.3 L (14.0-18.0) g/dL Hct 31.4 L (42-52) % Plt Count 390 (130-400) K/uL BMP 06/27/20 05:01 Sodium 146 H Potassium 5.0 D Chloride 113 H Carbon Dioxide 33 H BUN 16 Creatinine 0.79 D Glucose 114 H Calcium 8.0 L Medications Administered Current Inpatient Medications Acetaminophen (Acetaminophen 325 Mg Tab) 325 mg PO Q6H PRN PRN Reason: Mild Pain Stop: 07/26/20 22:41 Amlodipine Besylate (Amlodipine Besylate 5 Mg Tab) 5 mg PO QAM [facility] Stop: 07/14/20 08:59 Last Admin: 06/14/20 11:20 Dose: 5 mg Documented by: Aspirin (Aspirin 81 Mg Ectab) 81 mg PO QAM YOSSI Stop: 07/14/20 08:59 Last Admin: 06/27/20 08:50 Dose: 81 mg Documented by: Guaifenesin (Guaifenesin 600 Mg Tabcr) 600 mg PO Q12 YOSSI Stop: 07/19/20 08:59 Last Admin: 06/27/20 08:49 Dose: 600 mg Documented by: Heparin Sodium (Porcine) (Heparin Sod 5,000 Unit/0.5 Ml Vial) 5,000 units SQ Q8 YOSSI Stop: 07/27/20 13:59 Acetaminophen (Ofirmev) 1,000 mg in 100 mls @ 200 mls/hr IV Q8H PRN; Protocol PRN Reason: pain/fever Stop: 06/29/20 22:41 Last Infusion: 06/27/20 06:13 Dose: Infused Documented by: Lactated Ringer's (Lr) 1,000 mls @ 150 mls/hr IV .Q6H40M STA Stop: 06/27/20 15:02 Last Admin: 06/27/20 08:49 Dose: 100 mls/hr Documented by: Ipratropium Summit (Ipratropium [place] Neb Soln 0.02% 2.5 Ml Vial) 0.5 mg INH BIDR YOSSI Stop: 07/18/20 18:59 Last Admin: 06/27/20 07:04 Dose: 0.5 mg Documented by: Ipratropium [place] (Ipratropium [place] Neb Soln 0.02% 2.5 Ml Vial) 0.5 mg INH Q6R PRN PRN Reason: Shortness Of Breath Or Wheezing Stop: 07/18/20 22:29 Levalbuterol HCl (Levalbuterol 1.25mg/0.5ml Neb) 1.25 mg INH BIDR YOSSI Stop: 07/18/20 18:59 Last Admin: 06/27/20 07:04 Dose: 1.25 mg Documented by: Levalbuterol HCl (Levalbuterol 1.25mg/0.5ml Neb) 1.25 mg INH Q6R PRN PRN Reason: Shortness Of Breath Or Wheezing Stop: 07/19/20 00:59 Levothyroxine Sodium (Levothyroxine Sodium 175 Mcg Tablet) 175 mcg PO DAILYBB [facility] Stop: 07/14/20 06:29 Last Admin: 06/27/20 05:29 Dose: Not Given Documented by: Miscellaneous (Icu Protocol For Hyperglycemia) 1 ea N/A PRN PRN; Protocol PRN Reason: Hyperglycemia Protocol Stop: 06/28/20 22:01 Morphine Sulfate (Morphine Sulfate 4 Mg/Ml 1 Ml Carp\Vial) 4 mg IV Q4H PRN PRN Reason: Pain Stop: 07/10/20 22:41 Prolensa~Non- Formulary Patient's Own Med 1 ea OP BID YOSSI Stop: 07/14/20 08:59 Last Admin: 06/27/20 09:02 Dose: Not Given Documented by: Durezol~Non- Formulary Patient's Own Med 1 ea OP BID YOSSI Stop: 07/14/20 08:59 Last Admin: 06/27/20 09:01 Dose: Not Given Documented by: Tramadol HCl (Tramadol Hcl 50 Mg Tablet) 25 - 50 mg PO Q4H PRN PRN Reason: Pain Stop: 07/26/20 22:41 (1) Acute kidney failure Acute renal failure type: unspecified Qualified Code(s): N17.9 - Acute kidney failure, unspecified
[2020-06-27 13:25] LABS: Calcium 8.1 mg/dl (8.5-10.1); Creatinine Clr Calc Pharmacy 112.1 ml/min; Est GFR (African American) 96.1; Est GFR (Non-African American) 82.9; Potassium 4.7 mmol/L (3.5-5.1)
[2020-06-27] MEDS: HEPARIN SOD 5,000 UNIT/0.5 ML VIAL SQ SCH ×2 (14:07→21:10)
[2020-06-28] MEDS: HEPARIN SOD 5,000 UNIT/0.5 ML VIAL SQ SCH ×3 (05:34→23:15)
[2020-06-28] MEDS: LEVOTHYROXINE SODIUM 175 MCG TABLET PO SCH (05:35)
[2020-06-28 06:21] LABS: Basophils # (auto) 0.04 K/uL (0-0.2); Basophils % (auto) 0.2 %; Eosinophils # (auto) 0.02 K/uL (0-0.5); Eosinophils % (auto) 0.1 %; Hematocrit (blood only) 30.8 % (42-52); Hemoglobin 9.9 g/dL (14.0-18.0); Immature Granulocytes # (auto) 0.09 K/uL (0.00-0.02); Immature Granulocytes % (auto) 0.4 %; Lymphocytes # (auto) 0.89 K/uL (1.2-3.4); Lymphocytes % (auto) 4.2 %; Mean Corpuscular Hemoglobin 30.4 pg (25-34); Mean Corpuscular Hgb Conc 32.1 g/dL (32-36); Mean Corpuscular Volume 94.5 fL (80-100); Mean Platelet Volume 9.1 fL (7.4-10.4); Monocytes # (auto) 1.93 K/uL (0.11-0.59); Monocytes % (auto) 9.2 %; Neutrophils # (auto) 18.05 K/uL (1.4-6.5); Neutrophils % (auto) 85.9 %; Platelet Count 456 K/uL (130-400); RDW Coefficient of Variation 16.8 % (11.5-14.5); RDW Standard Deviation 57.1 fL (36.4-46.3); Red Blood Count 3.26 M/uL (4.7-6.1); White Blood Count 21.02 K/uL (4.8-10.8)
--- NOTE | 2020-06-28 06:39 | Surgery Progress Note ---
Date of Service June 28, 2020 Assessment & Plan (1) Dilatation of colon: Postop day #2 sigmoid resection and gastrostomy placement. Surgical pathology is pending. We will continue following manner. Maintain n.p.o. status until improvement of bowel function is noted Continue gastric decompression with G-tube Continue IV fluid for hydration Continue analgesics Encourage use of incentive spirometry Increase mobility as able. Patient may benefit from PT and OT evaluation. Subcu heparin is in place for DVT prevention Admission and Anticipated Discharge Date Admission Date: June 13, 2020 Supervising Physician Co-Signing Physician Notes Patient seen and examined, labs reviewed, agree with above. POD #2 laparoscopic converted to open sigmoidectomy NG tube placement for sigmoid volvulus. Overall doing well, pain controlled. He states he has passed some gas. On exam abdomen is soft, probably tender to palpation. MAYELIN drain with serosanguineous drainage. Incisions with Isa and jonh in place, no evidence of infection. White blood cell count downtrending to 21 from 30 yesterday. Otherwise unremarkable labs. We will clamp his NG tube and check residuals in 4 hours. If he tolerates this then we will potentially start him on clear liquids. Encourage ambulation, I-S, and out of bed to chair. Subjective Patient is resting comfortably in bed. He denies any worsening or significant abdominal pain. He denies any nausea or vomiting. He denies any fevers, shakes , chills. I discussed with the nurse at bedside and no acute issues have been noted overnight. The patient is not having diarrhea. Physical Exam Gastrointestinal (Abdomen): Abdomen is soft and nondistended. There is minimal pain noted with palpation. G-tube is in place which is drained 700 cc last 24 hours and 50 cc last shift. MAYELIN drain is in place which is draining 105 cc last 24 hours and 20 cc last shift. Results & Data ([facility]) Vital Signs (Past 12 Hours) Vital Signs Temp Pulse Pulse Pulse Resp BP BP 06/28/20 04:00 37.1 C 89 20 139/73 06/28/20 02:18 86 18 06/28/20 00:30 84 06/27/20 23:55 82 23 06/27/20 23:00 36.8 C 86 20 134/76 06/27/20 22:19 84 06/27/20 20:05 83 20 06/27/20 19:00 36.8 C 06/27/20 18:58 84 24 127/66 Pulse Ox 06/28/20 04:00 92 06/28/20 02:18 94 06/28/20 00:30 06/27/20 23:55 91 06/27/20 23:00 92 06/27/20 22:19 06/27/20 20:05 94 06/27/20 19:00 06/27/20 18:58 93 PG Care Time/CCT Total # of Minutes Spent Total Time Spent with Patient: Total time spent is greater than 50% in coordination of care (as documented) at patient's floor/unit and/or counseling patient: Coding Level of Care Code None Diagnoses Dilatation of colon K59.39
[2020-06-28] MEDS: IPRATROPIUM BROMIDE NEB SOLN 0.02% 2.5 ML VIAL INH SCH (07:24)
[2020-06-28] MEDS: LEVALBUTEROL 1.25MG/0.5ML NEB INH SCH (07:25)
[2020-06-28] MEDS: CARBAMIDE PEROXIDE 6.5% 15 ML BTL OTB SCH ×2 (09:11→20:28)
--- NOTE | 2020-06-28 09:22 | Surgery Progress Note ---
Date of Service June 28, 2020 Assessment & Plan (1) Dilatation of colon: Postop day #2 sigmoid resection and gastrostomy placement. Surgical pathology is pending. We will continue following manner. Maintain n.p.o. status until improvement of bowel function is noted Continue gastric decompression with G-tube Continue IV fluid for hydration Continue analgesics Encourage use of incentive spirometry Increase mobility as able. Patient may benefit from PT and OT evaluation. Subcu heparin is in place for DVT prevention Admission and Anticipated Discharge Date Admission Date: June 13, 2020 Supervising Physician Co-Signing Physician Notes IV fluids were discontinued yesterday the patient needs IV fluid discussed with the hospitalist this morning The patient likely take a while until his GI function returns lately he has a central line right internal jugular and I expect it will be a while before he is able to take significant oral intake therefore at this point I will start hyperalimentation At this time I would not clamp the G-tube may have some hard candy and some sips of water occasionally Subjective Patient resting comfortably I am concerned that he has he is extremely thirsty states that has passed some flatus but no bowel movements yet no real abdominal discomfort Physical Exam Physical Exam: Oral mucosa extremely dry The G-tube is draining a considerable amount since 7:00 this morning 150 cc dark not coffee-ground The abdomen is distended but no localized tenderness or guarding dressings are dry Urine less concentrated than yesterday morning Patient has discomfort in the left arm just proximal to the elbow has good perfusion of his hand without any neuro deficit Results & Data ([facility]) Vital Signs (Past 12 Hours) Vital Signs Temp Pulse Pulse Pulse Resp BP Pulse Ox 06/28/20 07:44 88 06/28/20 07:36 36.6 C 86 18 119/70 93 06/28/20 06:00 85 19 92 06/28/20 04:00 37.1 C 89 20 139/73 92 06/28/20 02:18 86 18 94 06/28/20 00:30 84 06/27/20 23:55 82 23 91 06/27/20 23:00 36.8 C 86 20 134/76 92 06/27/20 22:19 84 white count decreasing as expected that was related to circulation for surgery 31,000 yesterday PG Care Time/CCT Total # of Minutes Spent Total Time Spent with Patient: Total time spent is greater than 50% in coordination of care (as documented) at patient's floor/unit and/or counseling patient: Coding Level of Care Code None Diagnoses Dilatation of colon K59.39
[2020-06-28] MEDS ORDERED: TPN/PPN CONSULT PHARMACY STA (09:34)
[2020-06-28] MEDS ORDERED: DEXTROSE 10% 1,000 ML IV PRN (09:34)
[2020-06-28] MEDS: ASPIRIN 81 MG ECTAB PO SCH ×2 (09:42→10:35)
[2020-06-28] MEDS: guaiFENesin 600 MG TABCR PO SCH ×2 (09:42→20:26)
[2020-06-28] MEDS: PROLENSA OP SCH ×2 (09:43→20:26)
[2020-06-28] MEDS: DUREZOL OP SCH ×2 (09:43→20:26)
[2020-06-28] MEDS ORDERED: TPN/PPN CONSULT PHARMACY PRN (09:46)
[2020-06-28 10:02] LABS: BUN Creatinine Ratio 21.9 (10-20); Calcium 8.9 mg/dl (8.5-10.1); Creatinine Clr Calc Pharmacy 105.6 ml/min; Est GFR (African American) 94.3; Est GFR (Non-African American) 81.3; Magnesium 2.3 mg/dl (1.8-2.4); Potassium 4.3 mmol/L (3.5-5.1)
[2020-06-28 10:06] LABS: Bilirubin,Total 0.5 mg/dl (0.2-1); Phosphorus 3.3 mg/dl (2.5-4.9)
--- NOTE | 2020-06-28 10:10 | Nephrology Progress Note ---
Date of Service June 28, 2020 Assessment & Plan (1) Disorders of fluid, electrolyte, and acid-base balance: Last creatinine in June 2018 was 1.12 was admitted with a serum creatinine of 1.6, which has been gradually increasing to peak at 2.9 on 06/14, plateau'd at about 0.8 for several days now. -mild hypernatremia, high normal K and normal phos on supplements, elevated bicarb ; 02 needs at his hospital baseline but relative hypotension -Patient is still n.p.o. -He will need a slightly hypotonic fluid. Recommend D5 half-normal saline at 75 mL/h given concerns for volume overload. From renal standpoint patient is fairly stable now. Renal will sign off. Please call if additional questions or concerns (2) Acute kidney failure: resolved as above Admission and Anticipated Discharge Date Admission Date: June 13, 2020 Subjective Seen in follow-up for electrolyte imbalance. Patient status post recent surgery. He feels better today. No shortness of breath. He is complaining of thirst. Review of Systems Review of Systems: All systems reviewed & are unremarkable except as noted in HPI & below Physical Exam 2 Physical Exam: General exam: Appears comfortable, no acute distress HEENT: Pupils are equal and reactive to light Neck: No JVD, neck is supple trachea is midline Respiratory system: Clear breath sounds bilaterally. Gastrointestinal: Abdomen is soft, non distended, non tender, bowel sounds are present CVS: Regular rate and rhythm. No murmurs, rubs or gallops Musculoskeletal: No joint or muscle tenderness Extremities: Non tender, no edema, peripheral pulses are present Neuro: Oriented, no tremors, no focal neurological deficits Skin: No rashes Results & Data ([facility]) Vital Signs (Past 12 Hours) Vital Signs Temp Pulse Pulse Pulse Resp BP Pulse Ox 06/28/20 07:44 88 06/28/20 07:36 36.6 C 86 18 119/70 93 06/28/20 06:00 85 19 92 06/28/20 04:00 37.1 C 89 20 139/73 92 06/28/20 02:18 86 18 94 06/28/20 00:30 84 06/27/20 23:55 82 23 91 06/27/20 23:00 36.8 C 86 20 134/76 92 06/27/20 22:19 84 Laboratory Results 06/28/20 06:05 06/28/20 06/28/20 06:01 06:05 WBC 21.02 H RBC 3.26 L MCV 94.5 MCH 30.4 MCHC 32.1 RDW Std Deviation 57.1 H RDW Coeff of Maximilian 16.8 H Plt Count 456 H MPV 9.1 Phosphorus 3.3 (1) Acute kidney failure Acute renal failure type: unspecified Qualified Code(s): N17.9 - Acute kidney failure, unspecified
[2020-06-28] MEDS ORDERED: SODIUM CHLOR 0.45% + 20MEQ KCL 20 MEQ/1,000 ML BAG IV SCH (11:15)
--- NOTE | 2020-06-28 13:03 | Pharmacy Report ---
PHA: Parenteral Nutrition Con - Date of Service June 28, 2020 - Scope Pharmacy was consulted on 06/28/20 to manage parenteral nutrition orders for this patient. - Subjective The patient is currently on day #1 of central parenteral nutrition for prolonged NPO status. - Objective Height: 6 ft 6 in Weight: 140.2 kg Diet: NPO Intake & Output (24hrs):: Intake & Output 06/26/20 06/27/20 06/28/20 06/29/20 06:59 06:59 06:59 06:59 Intake Total 820 / 820 3310 / 3310 3391.667 / 3391.667 Output Total 1580 / 1580 1761 / 1761 1890 / 1890 Balance -760 / -760 1549 / 1549 1501.667 / 1501.667 Weight 139.7 kg 144.1 kg 140.2 kg Laboratory Data (Last 24 Hr):: 06/27/20 06/28/20 12:56 06:05 Sodium 146 H 148 H Potassium 4.7 4.3 Chloride 111 H 109 H Carbon Dioxide 33 H 34 H BUN 18 20 H Creatinine 0.85 0.89 Glucose 114 H 108 H Calcium 8.1 L 8.9 Phosphorus 3.3 Magnesium 2.3 Total Bilirubin 0.5 AST 14 L ALT 24 Alkaline Phosphatase 84 Triglycerides 120 Nutrition Assessment:: Please refer to the Notes section of the EMR 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 - Assessment 06/28: * 79 yo M admitted on 06/13/20 secondary to constipation * Has since been to the OR three times * Most recent on 06/26 for signoid resection and gastrostomy placement * Remains NPO w/ G-tube for gastric decompression * Spoke with surgeon who said patient's bowel function will likely take a while to return so hyperalimentation is to start today through a R IJ central line * IV fluids will remain running until TPN starts this afternoon - Plan For day #1 of TPN administration, the following will be ordered: Macronutrients Amino acids 145 grams/day Dextrose 125 grams/day Lipids 50 grams/day Micronutrients Combined electrolytes 20 mL - contains 35 mEq Na, 20 meq K, 4.5 mEq Ca, 5 mEq Mg, 35 mEq Cl, 29.5 mEq acetate per 20 mL Potassium phosphate 30 mMol Potassium chloride 40 mEq Multivitamins 10 mL Trace Elements 1 mL Thiamine 100 mg Total volume 2000 mL to be infused over 24 hrs will provide 1505 kcal/day Labs, as indicated, will be ordered per protocol Pharmacy will continue to follow and adjust parenteral nutrition orders on a daily basis. Thank you for allowing us to participate in the care of this patient.
--- NOTE | 2020-06-28 14:04 | Hospitalist Progress Note ---
Date of Service June 28, 2020 Assessment & Plan (1) Dilatation of colon: 2 decompressive colonoscopies performed this admission with sigmoidectomy 06/26. Currently n.p.o., pain managed. Cont management per surgery. Move patient out of bed as soon as able to help wtih swelling and deconditioning. (2) Acute kidney failure: Improved to baseline. Some lower urine output noted overnight, however, IVF had been stopped, patient is NPO and TPN just started. Will cont to monitor. Ibanez in place for accurate I/Os. (3) Diastolic CHF, chronic: Patient denies any issues with breathing. Volume status is challenging however, lungs are clear to auscultation and creatinine has improved back to baseline. IVF off and TPN started. Has some peripheral swelling noted in hands and trace edema peripherally. Will discuss with nephro is we can start back on his bumex. (4) Elevated d-dimer: D-Dimer 1070 PT had elevated d-dimer in the past Doppler of LE extremities showed no DVT unable to get a CTA chest to r/o PE due to elevate creatinine on admission Considered to get a V/Q scan, doubt that will help since pt has hx COPD with interstitial changes Cr normalized,obtained CT PE (06/18) - negative for PE (5) HTN (hypertension): BP stable Continue to hold amlodipine (6) COPD (chronic obstructive pulmonary disease): Patient wears BiPAP at night with 4L O2, Continue BIpap for now. No evidence of COPD exacerbation at this time. (7) Obesity: -BMI of 37.6 (8) Hypothyroidism: Cont levothyroxine 175 mcg daily (9) Gout: -Cont colchicine 0.6 mg daily (10) Sleep apnea: Continued CPAP nightly (11) DVT prophylaxis: SCDs CODE: DNR/DNI Disposition: uncertain at this time. Karli Aguilar DO [facility] Hospitalist Admission and Anticipated Discharge Date Admission Date: June 13, 2020 Subjective 79 yo M with dilation of colon s/p sigmoid resection and gastrostomy placement on 06/26. Reports abdominal pain is managed with medications. Mouth is dry and he is still NPO TPN started through R IJ. Doing well overall. Review of Systems Review of Systems: All systems reviewed & are unremarkable except as noted in Subjective Physical Exam Physical Exam: CONSTITUTIONAL: obese, vitals as above, generally well- appearing EYES: normal conjunctivae, no scleral icterus ENT: external ear and nose normal, MMM RESPIRATORY: clear to auscultation bilaterally, no crackles, rales or wheezes, normal respiratory effort. Limited exam as patient is large and very weak, not easily maneuvered in the bed. CARDIOVASCULAR: regular rate and rhythm, S1 and 2 heard without murmurs, gallops or rubs, no JVD, no peripheral edema GASTROINTESTINAL: soft, nontender, nondistended, no guarding. : Ibanez in place. MUSCULOSKELETAL: generalized weakness with significant weakness in his upper extremities. SKIN: warm and dry, has multiple skin abrasions with some blistering that broke open, covered with optifoam on left forearm. NEUROLOGIC: CN 2-12 grossly intact, no sensory deficit, normal cognition, normal speech, no tremor PSYCHIATRIC: alert cooperative and oriented to person, place and time. Euthymic mood, makes good eye contact, language grossly intact, recent and r emote memory grossly intact. LYMPHATIC: no LAD Results & Data Results & Data ([facility]) Vital Signs (Past 12 Hours) Vital Signs Temp Pulse Pulse Pulse Resp BP Pulse Ox 06/28/20 11:44 36.6 C 85 18 111/70 98 06/28/20 07:44 88 06/28/20 07:36 36.6 C 86 18 119/70 93 06/28/20 06:00 85 19 92 06/28/20 04:00 37.1 C 89 20 139/73 92 06/28/20 02:18 86 18 94 Laboratory Results Short CBC 06/28/20 Range/Units 06:01 WBC 21.02 H (4.8-10.8) K/uL Hgb 9.9 L (14.0-18.0) g/dL Hct 30.8 L (42-52) % Plt Count 456 H (130-400) K/uL BMP 06/28/20 06:05 Sodium 148 H Potassium 4.3 Chloride 109 H Carbon Dioxide 34 H BUN 20 H Creatinine 0.89 Glucose 108 H Calcium 8.9 Liver Function 06/28/20 Range/Units 06:05 Total Bilirubin 0.5 (0.2-1) mg/dl AST 14 L (15-37) U/L ALT 24 (12-78) U/L Alkaline Phosphatase 84 (45-117) U/L Medications Administered Current Inpatient Medications Acetaminophen (Acetaminophen 325 Mg Tab) 325 mg PO Q6H PRN PRN Reason: Mild Pain Stop: 07/26/20 22:41 Amlodipine Besylate (Amlodipine Besylate 5 Mg Tab) 5 mg PO QAM [facility] Stop: 07/14/20 08:59 Last Admin: 06/14/20 11:20 Dose: 5 mg Documented by: Aspirin (Aspirin 81 Mg Ectab) 81 mg PO QAM [facility] Stop: 07/14/20 08:59 Last Admin: 06/28/20 10:35 Dose: 81 mg Documented by: Carbamide Peroxide (Carbamide Peroxide 6.5% 15 Ml Btl) 10 drops OTB BID [facility] Stop: 07/02/20 08:59 Last Admin: 06/28/20 09:11 Dose: 10 drops Documented by: Guaifenesin (Guaifenesin 600 Mg Tabcr) 600 mg PO Q12 [facility] Stop: 07/19/20 08:59 Last Admin: 06/28/20 09:42 Dose: 600 mg Documented by: Heparin Sodium (Porcine) (Heparin Sod 5,000 Unit/0.5 Ml Vial) 5,000 units SQ Q8 YOSSI Stop: 07/27/20 13:59 Last Admin: 06/28/20 05:34 Dose: 5,000 units Documented by: Acetaminophen (Ofirmev) 1,000 mg in 100 mls @ 200 mls/hr IV Q8H PRN; Protocol PRN Reason: pain/fever Stop: 06/29/20 22:41 Last Infusion: 06/27/20 06:13 Dose: Infused Documented by: Dextrose (D10w) 1,000 mls @ 0 mls/hr IV .Q0M PRN PRN Reason: protocol (see label comments) Stop: 07/28/20 09:33 Potassium Chloride/Sodium Chloride (1/2 Nss + 20meq Kcl 1000ml) 20 meq in 1,000 mls @ 75 mls/hr IV .[id number] [facility] Stop: 06/28/20 15:59 Last Admin: 06/28/20 11:40 Dose: 75 mls/hr Documented by: Nutrition (Parenteral) 2,000 (ml/ TPN BAG) 2,000 mls @ 83.33 mls/hr IV .Q24H YOSSI; Protocol Stop: 06/29/20 15:59 Ipratropium Pompeii (Ipratropium Pompeii Neb Soln 0.02% 2.5 Ml Vial) 0.5 mg INH Q6R PRN PRN Reason: Shortness Of Breath Or Wheezing Stop: 07/18/20 22:29 Levalbuterol HCl (Levalbuterol 1.25mg/0.5ml Neb) 1.25 mg INH Q6R PRN PRN Reason: Shortness Of Breath Or Wheezing Stop: 07/19/20 00:59 Levothyroxine Sodium (Levothyroxine Sodium 175 Mcg Tablet) 175 mcg PO DAILYBB YOSSI Stop: 07/14/20 06:29 Last Admin: 06/28/20 05:35 Dose: 175 mcg Documented by: Miscellaneous (Icu Protocol For Hyperglycemia) 1 ea N/A PRN PRN; Protocol PRN Reason: Hyperglycemia Protocol Stop: 06/28/20 22:01 Miscellaneous Information (Tpn/Ppn Consult Pharmacy) 1 ea N/A UD PRN PRN Reason: Consult Stop: 07/28/20 09:45 Morphine Sulfate (Morphine Sulfate 4 Mg/Ml 1 Ml Carp\Vial) 4 mg IV Q4H PRN PRN Reason: Pain Stop: 07/10/20 22:41 Prolensa~Non- Formulary Patient's Own Med 1 ea OP BID YOSSI Stop: 07/14/20 08:59 Last Admin: 06/28/20 09:43 Dose: Not Given Documented by: Durezol~Non- Formulary Patient's Own Med 1 ea OP BID YOSSI Stop: 07/14/20 08:59 Last Admin: 06/28/20 09:43 Dose: Not Given Documented by: Tramadol HCl (Tramadol Hcl 50 Mg Tablet) 25 - 50 mg PO Q4H PRN PRN Reason: Pain Stop: 07/26/20 22:41 (1) Acute kidney failure Acute renal failure type: unspecified Qualified Code(s): N17.9 - Acute kidney failure, unspecified
[2020-06-28] MEDS ORDERED: Custom Central Pn 2,000 ML in TPN BAG 0 ML IV SCH (16:00)
--- NOTE | 2020-06-29 05:58 | Surgery Progress Note ---
Date of Service June 29, 2020 Assessment & Plan (1) Dilatation of colon: Postop day #3 sigmoid resection and gastrostomy placement. Surgical pathology remains pending. We will continue care in the following manner. We will consider allowing clear liquids as patient's bowel function is re turning and he has minimal residual G-tube drainage after a clamping trial. Parenteral nutrition was initiated yesterday. We will continue this until we are certain his oral intake is adequate Continue analgesics Encourage use of incentive spirometry Increase mobility as able. Patient may benefit from PT and OT evaluation. Subcu heparin is in place for DVT prevention Admission and Anticipated Discharge Date Admission Date: June 13, 2020 Subjective Patient denies worsening abdominal pain. He reports having a bowel movement last night. He denies any nausea vomiting. He denies any fever shakes or chills. Discussed with the RN at bedside. She verified that the patient did indeed have a bowel movement last shift. She also notes that his G-tube has a minimal residual and is therefore not been placed back to suction. She does not identify any other acute issues at this time. Physical Exam Constitutional: well developed and well nourished; no acute distress Respiratory: normal respiratory effort; no respiratory distress and no labored breathing Slight decrease of breath sounds noted at bases Gastrointestinal (Abdomen): Abdomen is soft with slight distention. Bowel sounds are present. There is minimal pain with palpation. There is no rebound tenderness or guarding. Results & Data ([facility]) Vital Signs (Past 12 Hours) Vital Signs Temp Pulse Pulse Pulse Resp BP Pulse Ox 06/29/20 03:00 36.4 C L 89 20 135/75 92 06/29/20 02:27 81 18 95 06/29/20 02:23 83 06/28/20 23:00 36.4 C L 86 20 131/69 96 06/28/20 21:00 88 20 92 06/28/20 18:43 36.7 C 86 18 123/69 96 PG Care Time/CCT Total # of Minutes Spent Total Time Spent with Patient: Total time spent is greater than 50% in coordination of care (as documented) at patient's floor/unit and/or counseling patient: Coding Level of Care Code None Diagnoses Dilatation of colon K59.39
[2020-06-29] MEDS: ACETAMINOPHEN 1,000 MG/100 ML VIAL IV PRN (06:14)
[2020-06-29] MEDS: LEVOTHYROXINE SODIUM 175 MCG TABLET PO SCH (06:22)
[2020-06-29] MEDS: HEPARIN SOD 5,000 UNIT/0.5 ML VIAL SQ SCH ×3 (06:22→20:22)
[2020-06-29 06:27] LABS: Basophils # (auto) 0.03 K/uL (0-0.2); Basophils % (auto) 0.2 %; Eosinophils # (auto) 0.03 K/uL (0-0.5); Eosinophils % (auto) 0.2 %; Hematocrit (blood only) 27.6 % (42-52); Hemoglobin 8.8 g/dL (14.0-18.0); Immature Granulocytes # (auto) 0.07 K/uL (0.00-0.02); Immature Granulocytes % (auto) 0.4 %; Lymphocytes # (auto) 0.88 K/uL (1.2-3.4); Mean Corpuscular Hemoglobin 30.1 pg (25-34); Mean Corpuscular Hgb Conc 31.9 g/dL (32-36); Mean Corpuscular Volume 94.5 fL (80-100); Monocytes # (auto) 1.61 K/uL (0.11-0.59); Monocytes % (auto) 9.1 %; Neutrophils # (auto) 15.13 K/uL (1.4-6.5); Neutrophils % (auto) 85.1 %; Platelet Count 545 K/uL (130-400); RDW Standard Deviation 57.8 fL (36.4-46.3); Red Blood Count 2.92 M/uL (4.7-6.1); White Blood Count 17.75 K/uL (4.8-10.8)
[2020-06-29 06:56] LABS: BUN Creatinine Ratio 37.8 (10-20); Calcium 8.4 mg/dl (8.5-10.1); Creatinine Clr Calc Pharmacy 138.6 ml/min; Est GFR (African American) 105.3; Est GFR (Non-African American) 90.8; Magnesium 2.5 mg/dl (1.8-2.4)
[2020-06-29 07:08] LABS: Phosphorus 2.3 mg/dl (2.5-4.9)
[2020-06-29] MEDS: guaiFENesin 600 MG TABCR PO SCH ×2 (07:52→20:16)
[2020-06-29] MEDS: PROLENSA OP SCH ×2 (07:52→20:21)
[2020-06-29] MEDS: CARBAMIDE PEROXIDE 6.5% 15 ML BTL OTB SCH ×2 (07:52→20:23)
[2020-06-29] MEDS: DUREZOL OP SCH ×2 (07:53→20:21)
[2020-06-29] MEDS: ASPIRIN 81 MG ECTAB PO SCH (08:07)
--- NOTE | 2020-06-29 08:18 | Surgery Progress Note ---
Date of Service June 29, 2020 Assessment & Plan (1) Dilatation of colon: POD#3 Isa drains from both incisions removed We will clamp G-tube and start patient on clear liquids may have Coke keep on hyperal until patient tolerates regular diet Watch fluid status closely next 24 hours Postop day #3 sigmoid resection and gastrostomy placement. Surgical pathology remains pending. We will continue care in the following manner. We will consider allowing clear liquids as patient's bowel function is returning and he has minimal residual G-tube drainage after a clamping trial. Parenteral nutrition was initiated yesterday. We will continue this until we are certain his oral intake is adequate Continue analgesics Encourage use of incentive spirometry Increase mobility as able. Patient may benefit from PT and OT evaluation. Subcu heparin is in place for DVT prevention Admission and Anticipated Discharge Date Admission Date: June 13, 2020 Subjective Feels much better than yesterday not as thirsty would like to have some Coca- [employer] He stated passed flatus and had a small bowel movement not nauseated and no abdominal pain Physical Exam Physical Exam: Alert comfortable in bed acute problems Oral mucosa moist No JVD distention at 45 Lungs clear The abdomen is benign flat incision without any cellulitis intact minimal Isa drainage G-tube site without any irritation Jac drainage serous slightly sanguinous Urine not concentrated No pedal edema does have some edema in both hands mostly localized in the forearm IV site in the right antecubital area without tenderness Pain left forearm improved good handgrip Results & Data ([facility]) Vital Signs (Past 12 Hours) Vital Signs Temp Pulse Pulse Pulse Resp BP Pulse Ox 06/29/20 03:00 36.4 C L 89 20 135/75 92 06/29/20 02:27 81 18 95 06/29/20 02:23 83 06/28/20 23:00 36.4 C L 86 20 131/69 96 06/28/20 21:00 88 20 92 white count noted decreasing as expected Hemoglobin slightly down likely dilutional PG Care Time/CCT Total # of Minutes Spent Total Time Spent with Patient: Total time spent is greater than 50% in coordination of care (as documented) at patient's floor/unit and/or counseling patient: Coding Level of Care Code None Diagnoses Dilatation of colon K59.39
--- NOTE | 2020-06-29 09:34 | Hospitalist Progress Note ---
Date of Service June 29, 2020 Assessment & Plan (1) Dilatation of colon: 2 decompressive colonoscopies performed this admission with sigmoidectomy 06/26. Currently n.p.o with transition to clears today, pain managed in abdomen, but starting scheduled Tylenol with hand/wrist pain. Restarting Bumex to help with swelling and fluid balance as kidney function is improved and he is now on TPN since yesterday. Cont management per surgery. Move patient out of bed as soon as able to help wtih swelling and deconditioning. PT/OT ordered and ordered OOB to chair every shift. (2) Acute kidney failure: Improved to baseline. Restart Bumex today after discussion with nephrology. Ibanez in place for accurate I/Os. (3) Diastolic CHF, chronic: Patient denies any issues with breathing. Volume status is challenging however, lungs are clear to auscultation and creatinine has improved back to baseline. Restarting home Bumex. Monitor output. (4) Elevated d-dimer: D-Dimer 1070 PT had elevated d-dimer in the past Doppler of LE extremities showed no DVT unable to get a CTA chest to r/o PE due to elevate creatinine on admission Considered to get a V/Q scan, doubt that will help since pt has hx COPD with interstitial changes Cr normalized,obtained CT PE (06/18) - negative for PE (5) HTN (hypertension): BP stable Continue to hold amlodipine while restarting Bumex. Patient also not moving much and BP within normal limits. (6) COPD (chronic obstructive pulmonary disease): Patient wears BiPAP at night with 4L O2, Continue BIpap for now. No evidence of COPD exacerbation at this time. (7) Obesity: -BMI of 37.6 (8) Hypothyroidism: Cont levothyroxine 175 mcg daily (9) Gout: -Cont colchicine 0.6 mg daily. Does not appear to be haivng a gout flare but will cont to monitor for this and may consider increasing colchicine to flare dose if joint pain/swelling persists. Patient reports he is mostly affected by joint pain in his great toe and sometimes in his hands. (10) Sleep apnea: Continued CPAP nightly (11) DVT prophylaxis: Heparin CODE: DNR/DNI Disposition: to SNF after discharge. Karli Aguilar DO [facility] Hospitalist Admission and Anticipated Discharge Date Admission Date: June 13, 2020 Subjective 79 yo M with dilation of colon s/p sigmoid resection and gastrostomy placement on 06/26. Reports abdominal pain is managed with medications. Diet advanced this am to clear liquids Reports pain in his wrists and feels this may be related to gout or arthritis. Pain was difficult to localize but moreso in hands that are swollen and puffy and wrists are swollen with decreased ROM. Review of Systems Review of Systems: All systems reviewed & are unremarkable except as noted in Subjective Physical Exam Physical Exam: CONSTITUTIONAL: obese, vitals as above, generally well- appearing EYES: normal conjunctivae, no scleral icterus ENT: external ear and nose normal, MMM RESPIRATORY: clear to auscultation bilaterally, no crackles, rales or wheezes, normal respiratory effort. Limited exam as patient is large and very weak, not easily maneuvered in the bed. CARDIOVASCULAR: regular rate and rhythm, S1 and 2 heard without murmurs, gallops or rubs, no JVD, trace peripheral edema in hands and lower extremities bilaterally GASTROINTESTINAL: soft, nontender, nondistended, no guarding. : Ibanez in place. MUSCULOSKELETAL: generalized weakness with significant weakness in his upper extremities. Decreased ROM of wrist flexion/extension bilaterally and patient cannot circumduct well either. Hands and wrists are swollen but not particula rly painful to palpation of the joints. SKIN: warm and dry, has multiple skin abrasions with some blistering that broke open, covered with optifoam on left forearm. NEUROLOGIC: CN 2-12 grossly intact, no sensory deficit, normal cognition, normal speech, no tremor PSYCHIATRIC: alert cooperative and oriented to person, place and time. Results & Data Results & Data ([facility]) Vital Signs (Past 12 Hours) Vital Signs Temp Pulse Pulse Pulse Resp BP Pulse Ox 06/29/20 08:00 37.4 C 88 20 123/66 93 06/29/20 03:00 36.4 C L 89 20 135/75 92 06/29/20 02:27 81 18 95 06/29/20 02:23 83 06/28/20 23:00 36.4 C L 86 20 131/69 96 Laboratory Results Short CBC 06/29/20 Range/Units 06:03 WBC 17.75 H (4.8-10.8) K/uL Hgb 8.8 L (14.0-18.0) g/dL Hct 27.6 L (42-52) % Plt Count 545 H (130-400) K/uL BMP 06/28/20 06/29/20 06:05 06:03 Sodium 148 H 146 H Potassium 4.3 4.0 Chloride 109 H 109 H Carbon Dioxide 34 H 35 H BUN 20 H 26 H Creatinine 0.89 0.68 Glucose 108 H 134 H Calcium 8.9 8.4 L Liver Function 06/28/20 Range/Units 06:05 Total Bilirubin 0.5 (0.2-1) mg/dl AST 14 L (15-37) U/L ALT 24 (12-78) U/L Alkaline Phosphatase 84 (45-117) U/L Medications Administered Current Inpatient Medications Amlodipine Besylate (Amlodipine Besylate 5 Mg Tab) 5 mg PO QAM YOSSI Stop: 07/14/20 08:59 Last Admin: 06/14/20 11:20 Dose: 5 mg Documented by: Aspirin (Aspirin 81 Mg Ectab) 81 mg PO QAM YOSSI Stop: 07/14/20 08:59 Last Admin: 06/29/20 08:07 Dose: 81 mg Documented by: Bumetanide (Bumetanide 1 Mg Tab) 1.5 mg PO BID17 YOSSI Stop: 07/29/20 09:44 Carbamide Peroxide (Carbamide Peroxide 6.5% 15 Ml Btl) 10 drops OTB BID YOSSI Stop: 07/02/20 08:59 Last Admin: 06/29/20 07:52 Dose: 10 drops Documented by: Guaifenesin (Guaifenesin 600 Mg Tabcr) 600 mg PO Q12 YOSSI Stop: 07/19/20 08:59 Last Admin: 06/29/20 07:52 Dose: 600 mg Documented by: Heparin Sodium (Beef Lung) (Heparin 10 Unit/Ml 5 Ml Flush) 5 ml FLUSH PRN PRN PRN Reason: Flush Stop: 07/29/20 00:06 Heparin Sodium (Porcine) (Heparin Sod 5,000 Unit/0.5 Ml Vial) 5,000 units SQ Q8 YOSSI Stop: 07/27/20 13:59 Last Admin: 06/29/20 06:22 Dose: 5,000 units Documented by: Dextrose (D10w) 1,000 mls @ 0 mls/hr IV .Q0M PRN PRN Reason: protocol (see label comments) Stop: 07/28/20 09:33 Nutrition (Parenteral) 2,000 (ml/ TPN BAG) 2,000 mls @ 83.33 mls/hr IV .Q24H YOSSI; Protocol Stop: 06/29/20 15:59 Last Admin: 06/28/20 16:24 Dose: 83.3 mls/hr Documented by: Acetaminophen (Ofirmev) 1,000 mg in 100 mls @ 200 mls/hr IV Q8H YOSSI; Protocol Stop: 07/02/20 08:59 Ipratropium Marshall (Ipratropium [place] Neb Soln 0.02% 2.5 Ml Vial) 0.5 mg INH Q6R PRN PRN Reason: Shortness Of Breath Or Wheezing Stop: 07/18/20 22:29 Levalbuterol HCl (Levalbuterol 1.25mg/0.5ml Neb) 1.25 mg INH Q6R PRN PRN Reason: Shortness Of Breath Or Wheezing Stop: 07/19/20 00:59 Levothyroxine Sodium (Levothyroxine Sodium 175 Mcg Tablet) 175 mcg PO DAILYBB YOSSI Stop: 07/14/20 06:29 Last Admin: 06/29/20 06:22 Dose: 175 mcg Documented by: Miscellaneous Information (Tpn/Ppn Consult Pharmacy) 1 ea N/A UD PRN PRN Reason: Consult Stop: 07/28/20 09:45 Morphine Sulfate (Morphine Sulfate 4 Mg/Ml 1 Ml Carp\Vial) 4 mg IV Q4H PRN PRN Reason: Pain Stop: 07/10/20 22:41 Prolensa~Non- Formulary Patient's Own Med 1 ea OP BID YOSSI Stop: 07/14/20 08:59 Last Admin: 06/29/20 07:52 Dose: 1 drops Documented by: Durezol~Non- Formulary Patient's Own Med 1 ea OP BID YOSSI Stop: 07/14/20 08:59 Last Admin: 06/29/20 07:53 Dose: 1 drops Documented by: Tramadol HCl (Tramadol Hcl 50 Mg Tablet) 50 mg PO Q4H PRN PRN Reason: Pain Stop: 07/26/20 22:41 (1) Acute kidney failure Acute renal failure type: unspecified Qualified Code(s): N17.9 - Acute kidney failure, unspecified
[2020-06-29] MEDS: ACETAMINOPHEN 1,000 MG/100 ML VIAL IV SCH ×2 (09:49→16:43)
[2020-06-29] MEDS: BUMETANIDE 1 MG TAB PO SCH ×2 (10:01→16:38)
[2020-06-29] MEDS ORDERED: Custom Central Pn 2,000 ML in TPN BAG 0 ML IV SCH (16:00)
[2020-06-29] MEDS: traMADol HCL 50 MG TABLET PO PRN (20:15)
[2020-06-29] MEDS ORDERED: BUMETANIDE 1 MG TAB PO SCH (21:00)
[2020-06-30] MEDS: ACETAMINOPHEN 1,000 MG/100 ML VIAL IV SCH ×2 (00:03→09:02)
[2020-06-30] MEDS: HEPARIN SOD 5,000 UNIT/0.5 ML VIAL SQ SCH ×3 (05:43→22:05)
[2020-06-30] MEDS: traMADol HCL 50 MG TABLET PO PRN (05:44)
[2020-06-30 06:30] LABS: Basophils # (auto) 0.02 K/uL (0-0.2); Basophils % (auto) 0.1 %; Eosinophils # (auto) 0.03 K/uL (0-0.5); Eosinophils % (auto) 0.2 %; Hematocrit (blood only) 26.9 % (42-52); Hemoglobin 8.7 g/dL (14.0-18.0); Immature Granulocytes # (auto) 0.08 K/uL (0.00-0.02); Immature Granulocytes % (auto) 0.5 %; Lymphocytes # (auto) 1.04 K/uL (1.2-3.4); Lymphocytes % (auto) 5.9 %; Mean Corpuscular Hemoglobin 29.9 pg (25-34); Mean Corpuscular Hgb Conc 32.3 g/dL (32-36); Mean Corpuscular Volume 92.4 fL (80-100); Monocytes # (auto) 1.99 K/uL (0.11-0.59); Monocytes % (auto) 11.2 %; Neutrophils # (auto) 14.59 K/uL (1.4-6.5); Neutrophils % (auto) 82.1 %; Platelet Count 530 K/uL (130-400); RDW Coefficient of Variation 16.5 % (11.5-14.5); RDW Standard Deviation 55.3 fL (36.4-46.3); Red Blood Count 2.91 M/uL (4.7-6.1); White Blood Count 17.75 K/uL (4.8-10.8)
[2020-06-30] MEDS: LEVOTHYROXINE SODIUM 175 MCG TABLET PO SCH (06:40)
--- NOTE | 2020-06-30 07:13 | Surgery Progress Note ---
Date of Service June 30, 2020 Assessment & Plan (1) Dilatation of colon: POD#4 This point will increase to a low fiber diet cut back slowly on his hyperalimentation and fluids and continue diuresis If he tolerates diet today which was increased we hopefully can wean him off hyperalimentation tomorrow if GI function is back to normal Weight noted Discussed plans of therapy with Dr. Aguilar hospitalist service POD#3 [place] drains from both incisions removed We will clamp G-tube and start patient on clear liquids may have Coke keep on hyperal until patient tolerates regular diet Watch fluid status closely next 24 hours Postop day #3 sigmoid resection and gastrostomy placement. Surgical pathology remains pending. We will continue care in the following manner. We will consider allowing clear liquids as patient's bowel function is returning and he has minimal residual G-tube drainage after a clamping trial. Parenteral nutrition was initiated yesterday. We will continue this until we are certain his oral intake is adequate Continue analgesics Encourage use of incentive spirometry Increase mobility as able. Patient may benefit from PT and OT evaluation. Subcu heparin is in place for DVT prevention Admission and Anticipated Discharge Date Admission Date: June 13, 2020 Subjective Overall had a good day yesterday tolerated oral intake especially the Coke main pain that he is having is no abdominal but both of his upper extremities the forearms Physical Exam Physical Exam: Alert coherent at the present time being changed had a small bowel movement As expected he is mobilizing fluids he has some generalized edema mostly concentrated upper extremities from the elbow down The abdomen is completely benign I did not change the dressing today but the nurses just had not there is no problem with the incision is minimal drainage at the Isa sites which Isa was removed 2 days ago Ibanez catheter draining clear urine in the amount noted the last 24 hours +1 pedal edema Results & Data ([facility]) Vital Signs (Past 12 Hours) Vital Signs Temp Pulse Pulse Resp BP Pulse Ox 06/30/20 02:20 90 18 95 06/30/20 00:05 36.8 C 91 H 20 139/69 93 06/29/20 21:32 90 20 91 white count elevation persisting suspect most likely related to some inflammation in his both upper his arm rather than anything intra-abdominally electrolytes this morning are pending drop in hemoglobin dilutional likely etiology PG Care Time/CCT Total # of Minutes Spent Total Time Spent with Patient: Total time spent is greater than 50% in coordination of care (as documented) at patient's floor/unit and/or counseling patient: Coding Level of Care Code None Diagnoses Dilatation of colon K59.39
[2020-06-30 07:14] LABS: Creatinine Clr Calc Pharmacy 158.3 ml/min; Est GFR (African American) 107.9; Est GFR (Non-African American) 93.1; Potassium 3.4 mmol/L (3.5-5.1)
[2020-06-30] MEDS: PROLENSA OP SCH ×2 (08:10→22:08)
[2020-06-30] MEDS: DUREZOL OP SCH ×2 (08:10→22:08)
[2020-06-30] MEDS: ASPIRIN 81 MG ECTAB PO SCH (09:04)
[2020-06-30] MEDS: BUMETANIDE 1 MG TAB PO SCH ×2 (09:04→17:46)
[2020-06-30] MEDS: CARBAMIDE PEROXIDE 6.5% 15 ML BTL OTB SCH ×2 (09:05→22:08)
[2020-06-30] MEDS: guaiFENesin 600 MG TABCR PO SCH ×2 (09:44→22:06)
[2020-06-30] MEDS ORDERED: POTASSIUM CHLORIDE CRTAB 20 MEQ TABCR PO ONE (12:30)
--- NOTE | 2020-06-30 12:36 | Pharmacy Report ---
PHA: Parenteral Nutrition Con - Date of Service June 30, 2020 - Scope Pharmacy was consulted on 06/28/20 to manage parenteral nutrition orders for this patient. - Subjective The patient is currently on day 3 of central parenteral nutrition for prolonged NPO status. - Objective Height: 6 ft 6 in Weight: 161.8 kg Diet: Regular (low fiber) Intake & Output (24hrs):: Intake & Output 06/28/20 06/29/20 06/30/20 07/01/20 06:59 06:59 06:59 06:59 Intake Total 3391.667 / 3391.667 1000 / 1000 3080 / 3080 1536.925 / 1536.925 Output Total 1890 / 1890 1495 / 1495 2670 / 2670 Balance 1501.667 / 1501.667 -495 / -495 410 / 410 1536.925 / 1536.925 Weight 140.2 kg 141 kg 161.8 kg Laboratory Data (Last 24 Hr):: 06/30/20 06:11 Sodium 141 Potassium 3.4 L Chloride 103 Carbon Dioxide 34 H BUN 34 H Creatinine 0.64 Glucose 122 H Calcium 8.0 L Phosphorus 3.0 Magnesium 2.0 Nutrition Assessment:: Please refer to the Notes section of the EMR for the most recent management professor note. - Assessment * Significant weight increase noted from yesterday - 161.8 kg (still awaiting confirmation of this weight) * Bumetanide 1.5 mg PO BID started yesterday, reducing TPN volume today * Discussed case with Dr. Ware today - will decrease fluid rate of current TPN to 60 mL/hr so full TPN formulation written on 06/29 will not be given * Will aim for goal rate of 50-75 mL/hr for today's bag * Diet being advanced to low fiber diet today, so will cut back on macronutrients in today's formulation * Possible discontinuation of TPN tomorrow if patient tolerating PO well * Potassium of 3.4 mmol/L today - repleted with KCl 40 mEq PO x 1 * CO2 remains elevated - will hold off on additional acetate (besides what Aminosyn provides) * BSGs slightly elevated yesterday -will add insulin to today's formulation - Plan For day 3 of PN administration, the following will be ordered: Macronutrients Amino acids 110 grams/day Dextrose 125 grams/day Lipids 25 grams/day Micronutrients Sodium phosphate 9 MMol Sodium chloride 20 mEq Potassium phosphate 30 mMol Potassium chloride 60 mEq Magnesium sulfate 8.12 mEq Calcium gluconate 4.65 mEq Multivitamins 10 mL Trace Elements 1 mL Additional additives: thiamine 100 mg, insulin 10 units Total volume 1478 mL to be infused over 24 hrs will provide 1115 kcal/day Labs, as indicated, will be ordered per protocol Pharmacy will continue to follow and adjust parenteral nutrition orders on a daily basis. Thank you for allowing us to participate in the care of this patient.
--- NOTE | 2020-06-30 12:52 | XRay Report ---
XR chest 1V portable HISTORY: hypoxia COMPARISON: Chest 06/26/2020. FINDINGS: There are low lung volumes. Bibasilar linear densities have slightly improved. The heart re ruth enlarged. No evidence for pulmonary edema. No pneumothorax. No pleural effusions. A right jugul ar central venous catheter is unchanged in position and likely terminates in the SVC. Old, healed lef t-sided rib fracture. IMPRESSION: 1. Low lung volumes with slight improvement in the bibasilar linear densities. This may represent res olving atelectasis. 2. Stable cardiomegaly. ACT 112: Negative or not required by law. Electronically signed by: Tal Painting M.D. 06/30/2020 12:51 PM
--- NOTE | 2020-06-30 14:50 | Hospitalist Progress Note ---
Date of Service June 30, 2020 Assessment & Plan (1) Dilatation of colon: 2 decompressive colonoscopies performed this admission with sigmoidectomy 06/26. Started on on low fiber diet. Remains on TPN as well. Plan to cut her back if GI function returns to normal. Continue to work with PT/OT. (2) Leukocytosis: Patient has persistent leukocytosis. Remains afebrile. Chest x-ray without any infiltrates. Patient denies any respiratory symptoms. Currently patient is on 2 L of nasal cannula; use 4 L nocturnally at home. Will obtain blood cultures today. No indication to start antibiotics at this time. Patient is to develop fever, will start on broad-spectrum antibiotics. (3) Acute kidney failure: Resolved. Was restarted on Bumex on 06/29. Adequate urine output response. Ibanez catheter in place. Continue monitor ins and outs along with daily weights. (4) Diastolic CHF, chronic: Patient currently remains on 2 L of nasal cannula. Does not use any s upplemental oxygen at home. Denies any shortness of breath, cough or any palpitations. Chest x-ray obtained this morning reveals atelectasis. Courage incentive spirometer and out of bed. Patient does not appear hypervolemic on exam. Will continue with Bumex 1.5 mg BID. (5) Elevated d-dimer: D-Dimer 1070 PT had elevated d-dimer in the past Doppler of LE extremities showed no DVT unable to get a CTA chest to r/o PE due to elevate creatinine on admission Considered to get a V/Q scan, doubt that will help since pt has hx COPD with interstitial changes Cr normalized,obtained CT PE (06/18) - negative for PE (6) HTN (hypertension): BP stable Continue to hold amlodipine while restarting Bumex. (7) COPD (chronic obstructive pulmonary disease): Patient wears BiPAP at night with 4L O2, Continue BIpap for now. No evidence of COPD exacerbation at this time. (8) Obesity: -BMI of 37.6 (9) Hypothyroidism: Cont levothyroxine 175 mcg daily (10) Gout: Patient reports he is having a gout flareup. Reports pain in the bilateral ankles, great toe and wrist. Examination is benign. Absence of any significant swelling/erythema. Will increase colchicine. Increase cochicine to 1.2 mg daily. (11) Sleep apnea: Continued CPAP nightly (12) DVT prophylaxis: Heparin CODE: DNR/DNI Disposition: to SNF after discharge. Admission and Anticipated Discharge Date Admission Date: June 13, 2020 Subjective Patient is awake, alert and oriented x3. Reports his only primary complaint at the moment is pain in the bilateral ankles, right great toe and right wrist. Denies any chest pain or shortness of breath. Denies any cough. Currently on 2 L of nasal cannula. Denies any abdominal pain. Bowel movement earlier this morning. Appetite is okay. Review of Systems Review of Systems: All systems reviewed & are unremarkable except as noted in HPI & below Physical Exam Physical Exam: General: A&Ox3. HENT: NCAT, MMM, EOMI Eyes: PERRLA Neck: Supple, normal range of motion CVS: normal rate and rhythm Resp: b/l decreased breath sounds in the basal aspect Abdomen: Soft, ND/NT Extremities: 1+ lower extremity ED Neuro: face symmetric, no focal deficit Skin: no rashes/lesions/errythema MSK: no joint swelling/erythema Results & Data Results & Data ([facility]) Vital Signs (Past 12 Hours) Vital Signs Temp Pulse Resp BP Pulse Ox 06/30/20 07:44 36.7 C 92 H 19 149/73 H 91 (1) Acute kidney failure Acute renal failure type: unspecified Qualified Code(s): N17.9 - Acute kidney failure, unspecified
[2020-06-30] MEDS: CLINDAMYCIN 300 MG in DEXTROSE 5% 50 ML IV SCH ×2 (15:56→23:12)
[2020-06-30] MEDS ORDERED: TPN IV SCH (16:00)
[2020-06-30] MEDS ORDERED: CENTRAL PN IV SCH (16:00)
[2020-06-30] MEDS ORDERED: ONDANSETRON INJ 2 MG/ML 2 ML VIAL IV PRN (18:38)
[2020-06-30] MEDS: COLCHICINE 0.6 MG TAB PO SCH (22:03)
[2020-07-01] MEDS: HEPARIN SOD 5,000 UNIT/0.5 ML VIAL SQ SCH ×3 (06:29→20:23)
[2020-07-01] MEDS: LEVOTHYROXINE SODIUM 175 MCG TABLET PO SCH (06:30)
[2020-07-01 06:41] LABS: Basophils # (auto) 0.02 K/uL (0-0.2); Basophils % (auto) 0.1 %; Eosinophils # (auto) 0.01 K/uL (0-0.5); Eosinophils % (auto) 0.1 %; Hematocrit (blood only) 25.6 % (42-52); Hemoglobin 8.3 g/dL (14.0-18.0); Immature Granulocytes # (auto) 0.07 K/uL (0.00-0.02); Immature Granulocytes % (auto) 0.4 %; Lymphocytes # (auto) 1.14 K/uL (1.2-3.4); Lymphocytes % (auto) 6.4 %; Mean Corpuscular Hemoglobin 30.1 pg (25-34); Mean Corpuscular Hgb Conc 32.4 g/dL (32-36); Mean Corpuscular Volume 92.8 fL (80-100); Mean Platelet Volume 9.2 fL (7.4-10.4); Monocytes # (auto) 2.54 K/uL (0.11-0.59); Monocytes % (auto) 14.2 %; Neutrophils # (auto) 14.11 K/uL (1.4-6.5); Neutrophils % (auto) 78.8 %; Platelet Count 559 K/uL (130-400); RDW Coefficient of Variation 16.8 % (11.5-14.5); RDW Standard Deviation 55.9 fL (36.4-46.3); Red Blood Count 2.76 M/uL (4.7-6.1); White Blood Count 17.89 K/uL (4.8-10.8)
[2020-07-01 07:11] LABS: BUN Creatinine Ratio 51.7 (10-20); Calcium 8.6 mg/dl (8.5-10.1); Creatinine Clr Calc Pharmacy 158.3 ml/min; Est GFR (African American) 107.9; Est GFR (Non-African American) 93.1; Potassium 3.1 mmol/L (3.5-5.1)
[2020-07-01 07:14] LABS: Phosphorus 3.9 mg/dl (2.5-4.9)
[2020-07-01] MEDS ORDERED: POTASSIUM CHLORIDE CRTAB 20 MEQ TABCR PO ONE (08:00)
[2020-07-01] MEDS: CLINDAMYCIN 300 MG in DEXTROSE 5% 50 ML IV SCH ×3 (08:32→23:15)
[2020-07-01] MEDS: ASPIRIN 81 MG ECTAB PO SCH (08:33)
[2020-07-01] MEDS: BUMETANIDE 1 MG TAB PO SCH ×2 (08:33→16:13)
[2020-07-01] MEDS: CARBAMIDE PEROXIDE 6.5% 15 ML BTL OTB SCH ×2 (08:37→20:21)
[2020-07-01] MEDS: COLCHICINE 0.6 MG TAB PO SCH ×2 (08:37→20:22)
[2020-07-01] MEDS: DUREZOL OP SCH ×2 (08:38→20:21)
[2020-07-01] MEDS: guaiFENesin 600 MG TABCR PO SCH ×2 (08:38→20:22)
[2020-07-01] MEDS: PROLENSA OP SCH ×2 (08:39→20:21)
[2020-07-01] MEDS ORDERED: predniSONE 20 MG TAB PO STA (09:16)
--- NOTE | 2020-07-01 09:35 | Surgery Progress Note ---
Date of Service July 01, 2020 Assessment & Plan (1) Dilatation of colon: POD 5 sigmoid colectomy/gastrostomy seen with Dr. Ware colchicine restarted yesterday by med service, will give prednisone 40 mg x1 continue diet as miguel, cont TPN today has central line which would be preferred access over RUE line Admission and Anticipated Discharge Date Admission Date: June 13, 2020 Subjective c/o hand pain from gout and difficulty standing with PT, some nausea last night, not much appetite for solid food but taking Boost supplements, bowels moving but loose Physical Exam Gastrointestinal (Abdomen): Inspection/Auscultation: + abdominal surgical incision (clean, dry, no erythema) and + abdominal surgical drain present (40 cc serosang); abdomen not distended Percussion/Palpation: abdomen soft Results & Data ([facility]) Vital Signs (Past 12 Hours) Vital Signs Temp Pulse Pulse Resp BP Pulse Ox 07/01/20 07:27 36.7 C 84 18 130/71 92 06/30/20 23:41 36.8 C 94 H 18 117/68 90 06/30/20 23:30 92 H 26 H 96 06/30/20 22:15 36.8 C 94 H 18 117/68 90 PG Care Time/CCT Total # of Minutes Spent Total Time Spent with Patient: Total time spent is greater than 50% in coordination of care (as documented) at patient's floor/unit and/or counseling patient: Coding Level of Care Code None Diagnoses Dilatation of colon K59.39
--- NOTE | 2020-07-01 14:03 | Hospitalist Progress Note ---
Date of Service July 01, 2020 Assessment & Plan (1) Dilatation of colon: 2 decompressive colonoscopies performed this admission with sigmoidectomy 06/26. Continue with low fiber diet. Remains on TPN as well. Plan to cut her back if GI function returns to normal. Continue to work with PT/OT. (2) Leukocytosis: Patient has persistent leukocytosis. Remains afebrile. Chest x-ray without any infiltrates. Patient denies any respiratory symptoms. Currently patient is on 2 L of nasal cannula; use 4 L nocturnally at home. Blood cultures are pending. LUE IV infiltration: She had an IV infiltration of the left upper extremity, he had multiple blisters erupted now. Noted to have erythematous patches. Possibly the underlying etiology of his leukocytosis. Will do a short course of clindamycin for possible cellulitis. (3) Acute kidney failure: Resolved. Was restarted on Bumex on 06/29. Adequate urine output response. Ibanez catheter in place. Continue monitor ins and outs along with daily weights. (4) Diastolic CHF, chronic: Patient currently remains on 2 L of nasal cannula. Does not use any supplemental oxygen at home. Denies any shortness of breath, cough or any palpitations. Chest x-ray obtained this morning reveals atelectasis. Courage incentive spirometer and out of bed. Patient does not appear hypervolemic on exam. Will continue with Bumex 1.5 mg BID. (5) Elevated d-dimer: D-Dimer 1070 PT had elevated d-dimer in the past Doppler of LE extremities showed no DVT unable to get a CTA chest to r/o PE due to elevate creatinine on admission Considered to get a V/Q scan, doubt that will help since pt has hx COPD with interstitial changes Cr normalized,obtained CT PE (06/18) - negative for PE (6) HTN (hypertension): BP stable Continue to hold amlodipine while restarting Bumex. (7) COPD (chronic obstructive pulmonary disease): Patient wears BiPAP at night with 4L O2, Continue BIpap for now. No evidence of COPD exacerbation at this time. (8) Obesity: -BMI of 37.6 (9) Hypothyroidism: Cont levothyroxine 175 mcg daily (10) Gout: Patient reports he is having a gout flareup. Reports pain in the bilateral ankles, great toe and wrist. Examination is benign. Absence of any significant swelling/erythema. Will increase colchicine. Increase cochicine to 0.6 mg daily. (11) Sleep apnea: Continued CPAP nightly (12) DVT prophylaxis: Heparin CODE: DNR/DNI Disposition: to SNF after discharge. Admission and Anticipated Discharge Date Admission Date: June 13, 2020 Subjective Patient was awake, alert and oriented x3. Reports he ate a little bit today. States the joint pain persist mainly in the bilateral ankles, right great toe and right wrist. Denies any chest pain or shortness of breath. Denies any abdominal pain. Denies any cough. Physical Exam Physical Exam: General: A&Ox3. HENT: NCAT, MMM, EOMI Eyes: PERRLA Neck: Supple, normal range of motion CVS: normal rate and rhythm Resp: b/l decreased breath sounds in the basal aspect Abdomen: Soft, dressing in place, minimal tenderness appreciated, MAYELIN drain in place Extremities: 1+ lower extremity ED Neuro: face symmetric, no focal deficit Skin: no rashes/lesions/errythema MSK: no joint swelling/erythema Results & Data Results & Data ([facility]) Vital Signs (Past 12 Hours) Vital Signs Temp Pulse Resp BP Pulse Ox 07/01/ 07:27 36.7 C 84 18 130/71 92 (1) Acute kidney failure Acute renal failure type: unspecified Qualified Code(s): N17.9 - Acute kidney failure, unspecified
[2020-07-01] MEDS ORDERED: CENTRAL PN IV SCH (16:00)
[2020-07-01] MEDS ORDERED: TPN IV SCH (16:00)
[2020-07-01] MEDS: traMADol HCL 50 MG TABLET PO PRN (16:10)
[2020-07-02] MEDS: LEVOTHYROXINE SODIUM 175 MCG TABLET PO SCH (05:38)
[2020-07-02] MEDS: HEPARIN SOD 5,000 UNIT/0.5 ML VIAL SQ SCH ×3 (05:38→22:44)
--- NOTE | 2020-07-02 07:31 | Surgery Progress Note ---
Date of Service July 02, 2020 Assessment & Plan (1) Dilatation of colon: POD#6 At this time we will hold the next dose heparin and remove the Jac drain in a few hours after stopping it then resume heparin approximately 6 hours after Jac drain has been removed He is tolerating a diet therefore asked hyperalimentation to be stopped after present bag infusions discussed with pharmacy Also discussed with pharmacy regarding protocol with hyperal infusing and a triple-lumen apparently nurses were told last evening that the only thing it could go and the triple-lumen was hyperalimentation and not used the other ports the same time (protocol will be reviewed regarding present policy of triple- lumen infusion with hyper L Regarding the pathology report on the specimen the patient will eventually need a complete colonoscopy given the fact that he had multiple polyps in the area an d do the sigmoid volvulus the whole colon was not able to be visualized Nurses also report that the patient is daughter and her and the patient's will be taking care of the patient at home once on discharge POD 5 sigmoid colectomy/gastrostomy seen with Dr. Ware colchicine restarted yesterday by med service, will give prednisone 40 mg x1 continue diet as miguel, cont TPN today has central line which would be preferred access over RUE line Admission and Anticipated Discharge Date Admission Date: June 13, 2020 Subjective He had a good day yesterday indicating that he ate a regular diet mashed potatoes in the evening without any issues had a small bowel movement this morning main concern is still was upper extremities still painful to move Physical Exam Physical Exam: Alert coherent no pain when resting supine position as soon as he touches upper extremity and try to move them he has significant pain in those areas Lungs are clear The abdomen is soft the incisions are healing well the dressing was removed he does have a moderate amount of clot around the Jac drain this is new the drainage is serous slightly sanguinous Pedal edema is decreased Results & Data ([facility]) Vital Signs (Past 12 Hours) Vital Signs Pulse Pulse Resp BP Pulse Ox 07/02/20 03:33 88 24 93 07/01/20 23:17 83 17 113/63 95 07/01/20 22:10 85 25 H 96 Order lab this morning is pending Pathology report noted few polyps noted in the specimen tubular adenomas PG Care Time/CCT Total # of Minutes Spent Total Time Spent with Patient: Total time spent is greater than 50% in coordination of care (as documented) at patient's floor/unit and/or counseling patient: Coding Level of Care Code None Diagnoses Dilatation of colon K59.39
[2020-07-02 07:41] LABS: Basophils # (auto) 0.02 K/uL (0-0.2); Basophils % (auto) 0.1 %; Eosinophils # (auto) 0.01 K/uL (0-0.5); Eosinophils % (auto) 0.1 %; Hematocrit (blood only) 24.9 % (42-52); Immature Granulocytes # (auto) 0.26 K/uL (0.00-0.02); Immature Granulocytes % (auto) 1.4 %; Lymphocytes # (auto) 1.45 K/uL (1.2-3.4); Mean Corpuscular Hemoglobin 30.1 pg (25-34); Mean Corpuscular Hgb Conc 32.1 g/dL (32-36); Mean Corpuscular Volume 93.6 fL (80-100); Mean Platelet Volume 8.6 fL (7.4-10.4); Monocytes # (auto) 2.31 K/uL (0.11-0.59); Monocytes % (auto) 12.8 %; Neutrophils # (auto) 13.97 K/uL (1.4-6.5); Neutrophils % (auto) 77.6 %; Nucleated RBC # (auto) 0.03 K/uL (0-0); Nucleated RBC % (auto) 0.2 %; Platelet Count 460 K/uL (130-400); RDW Coefficient of Variation 16.6 % (11.5-14.5); RDW Standard Deviation 56.3 fL (36.4-46.3); Red Blood Count 2.66 M/uL (4.7-6.1); White Blood Count 18.02 K/uL (4.8-10.8)
[2020-07-02] MEDS: BUMETANIDE 1 MG TAB PO SCH ×2 (08:02→16:31)
[2020-07-02] MEDS: COLCHICINE 0.6 MG TAB PO SCH ×2 (08:02→20:50)
[2020-07-02] MEDS: ASPIRIN 81 MG ECTAB PO SCH (08:02)
[2020-07-02] MEDS: guaiFENesin 600 MG TABCR PO SCH ×2 (08:03→20:50)
[2020-07-02] MEDS: CLINDAMYCIN 300 MG in DEXTROSE 5% 50 ML IV SCH (08:03)
[2020-07-02 08:07] LABS: BUN Creatinine Ratio 58.4 (10-20); Calcium 8.8 mg/dl (8.5-10.1); Creatinine Clr Calc Pharmacy 155.8 ml/min; Est GFR (African American) 107.2; Est GFR (Non-African American) 92.5; Potassium 3.5 mmol/L (3.5-5.1)
[2020-07-02] MEDS: traMADol HCL 50 MG TABLET PO PRN (08:08)
--- NOTE | 2020-07-02 14:26 | Hospitalist Progress Note ---
Date of Service July 02, 2020 Assessment & Plan (1) Dilatation of colon: Admitted on volvulus of colon Status post decompressive colonoscopies performed this admission with sigmoidectomy 06/26. Continue with low fiber diet-tolerating well Plan to wean off of TPN, as GI function improved back to baseline Appreciate input from surgery (2) Leukocytosis: Resolved (3) Acute kidney failure: Resolved. Was restarted on Bumex on 06/29. Adequate urine output response. Ibanez catheter in place. Continue monitor ins and outs along with daily weights. (4) Diastolic CHF, chronic: Patient currently remains on 2 L of nasal cannula. Does not use any supplemental oxygen at home. Denies any shortness of breath, cough or any palpitations. Chest x-ray o atelectasis. Courage incentive spirometer and out of bed. Will continue with Bumex 1.5 mg BID. (5) Elevated d-dimer: D-Dimer 1070 -possible secondary to acute abdomen? PT had elevated d-dimer in the past Doppler of LE extremities showed no DVT CT chest noncontrast no IV disease no PE (6) HTN (hypertension): BP stable Outpatient meds resumed (7) COPD (chronic obstructive pulmonary disease): Patient wears BiPAP at night with 4L O2, Continue BIpap for now. No evidence of COPD exacerbation at this time. (8) Obesity: -BMI of 37.6 (9) Hypothyroidism: Cont levothyroxine 175 mcg daily (10) Gout: Patient reports he is having a gout flareup. Reports pain in the bilateral ankles, great toe and wrist. Examination is benign. Absence of any significant swelling/erythema. Continue colchicine, We will do trial of short course of prednisone (11) Sleep apnea: Continued CPAP nightly (12) DVT prophylaxis: Moderate to high risk for DVT for morbid obese sitting /immobility secondary to surgical abdomen Continue subcu heparin CODE: DNR/DNI Disposition: to SNF after discharge. Continue PT OT evaluation family will be updated over phone Admission and Anticipated Discharge Date Admission Date: June 13, 2020 Subjective Follow-up visit for sigmoid volvulus status post sigmoidectomy/colectomy: Patient reports of feeling better today, tolerating solid food, No complaint of abdominal pain, no nausea vomiting Sees both of his feet/ankles painful due to gout flare. No fever or chills, no shortness of breath, no cough Review of Systems Review of Systems: All systems reviewed & are unremarkable except as noted in Subjective Physical Exam Physical Exam: Physical exam: General: Morbidly obese no acute distress, alert awake oriented x3 HEENT: PERRLA, EOMI, Heart: Regular S1-S2, /bilateral lower extremity +1 edema Lungs: Clear to auscultate, no wheeze or rales Abdomen: Distended/surgical site on left lower quadrant intact jonh present, bowel sounds active Extremity: Generalized weakness Positive pain and swelling on bilateral ankles/difficult to assess completely as patient's feet are unremarkable wounds Neuro: No focal neurological deficit normal speech, Psych: Alert awake oriented x3, normal affect Results & Data Results & Data ([facility]) Vital Signs (Past 12 Hours) Vital Signs Temp Pulse Pulse Resp BP Pulse Ox 07/02/20 07:40 36.3 C L 72 18 147/74 H 91 07/02/20 03:33 88 24 93 (1) Acute kidney failure Acute renal failure type: unspecified Qualified Code(s): N17.9 - Acute kidney failure, unspecified
[2020-07-02] MEDS: ADVANCED PROBIOTIC 1250 MG CAPSULE PO SCH (15:18)
[2020-07-02] MEDS: INDOMETHACIN 25 MG CAP PO SCH ×2 (15:19→20:51)
[2020-07-03] MEDS: HEPARIN SOD 5,000 UNIT/0.5 ML VIAL SQ SCH ×3 (05:21→21:27)
[2020-07-03] MEDS: LEVOTHYROXINE SODIUM 175 MCG TABLET PO SCH (05:22)
[2020-07-03 06:21] LABS: Eosinophils % (auto) 0.9 %; Hematocrit (blood only) 25.4 % (42-52); Immature Granulocytes # (auto) 0.39 K/uL (0.00-0.02); Immature Granulocytes % (auto) 3.6 %; Lymphocytes # (auto) 1.53 K/uL (1.2-3.4); Lymphocytes % (auto) 14.1 %; Mean Corpuscular Hemoglobin 29.6 pg (25-34); Mean Corpuscular Hgb Conc 31.5 g/dL (32-36); Mean Corpuscular Volume 94.1 fL (80-100); Mean Platelet Volume 9.2 fL (7.4-10.4); Monocytes # (auto) 1.66 K/uL (0.11-0.59); Monocytes % (auto) 15.3 %; Neutrophils # (auto) 7.18 K/uL (1.4-6.5); Neutrophils % (auto) 66.1 %; Nucleated RBC # (auto) 0.03 K/uL (0-0); Nucleated RBC % (auto) 0.2 %; Platelet Count 517 K/uL (130-400); RDW Coefficient of Variation 16.4 % (11.5-14.5); RDW Standard Deviation 56.4 fL (36.4-46.3); White Blood Count 10.86 K/uL (4.8-10.8)
[2020-07-03 06:57] LABS: BUN Creatinine Ratio 56.2 (10-20); Calcium 8.4 mg/dl (8.5-10.1); Creatinine Clr Calc Pharmacy 138.8 ml/min; Est GFR (African American) 102.2; Est GFR (Non-African American) 88.2; Potassium 3.4 mmol/L (3.5-5.1)
[2020-07-03] MEDS: traMADol HCL 50 MG TABLET PO PRN (08:26)
[2020-07-03] MEDS: ADVANCED PROBIOTIC 1250 MG CAPSULE PO SCH (08:27)
[2020-07-03] MEDS: INDOMETHACIN 25 MG CAP PO SCH (08:27)
[2020-07-03] MEDS: PANTOprazole 40 MG TAB PO SCH (08:27)
[2020-07-03] MEDS: COLCHICINE 0.6 MG TAB PO SCH ×2 (08:27→21:27)
[2020-07-03] MEDS: ASPIRIN 81 MG ECTAB PO SCH (08:27)
--- NOTE | 2020-07-03 08:27 | Surgery Progress Note ---
Date of Service July 03, 2020 Assessment & Plan (1) Dilatation of colon: POD 7 sigmoid resection off TPN, diet as miguel can remove jonh at home, keep G-tube for now d/c planning, has services at home from previous rehab seen with Dr. Ware Admission and Anticipated Discharge Date Admission Date: June 13, 2020 Subjective feeling better, still some gout pain and swelling of hands and feet, had some solid food yesterday and hungry this AM Physical Exam Gastrointestinal (Abdomen): Inspection/Auscultation: + abdominal surgical incision (dry, no erythema, dressing dry from where drain was removed) Percussion/Palpation: abdomen soft Results & Data ([facility]) Vital Signs (Past 12 Hours) Vital Signs Temp Pulse Pulse Resp BP Pulse Ox 07/03/20 04:11 80 23 94 07/02/20 22:40 36.5 C 90 20 113/70 96 07/02/20 22:35 90 25 H 96 PG Care Time/CCT Total # of Minutes Spent Total Time Spent with Patient: Total time spent is greater than 50% in coordination of care (as documented) at patient's floor/unit and/or counseling patient: Coding Level of Care Code None Diagnoses Dilatation of colon K59.39
[2020-07-03] MEDS: BUMETANIDE 1 MG TAB PO SCH ×2 (08:28→17:51)
[2020-07-03] MEDS: guaiFENesin 600 MG TABCR PO SCH ×2 (08:28→21:27)
[2020-07-03] MEDS: amLODIPine BESYLATE 5 MG TAB PO SCH (08:55)
[2020-07-03] MEDS ORDERED: POTASSIUM CHLORIDE CRTAB 20 MEQ TABCR PO STA (11:39)
--- NOTE | 2020-07-03 16:10 | Hospitalist Progress Note ---
Date of Service July 03, 2020 Assessment & Plan (1) Dilatation of colon: Admitted on volvulus of colon Status post decompressive colonoscopies performed this admission with sigmoidectomy 06/26. Continue with low fiber diet-tolerating well Patient been off TPN: Appreciate input from surgery Stable to be discharged home, clinic follow-up to remove jonh, remains to continue G-tube on discharge (2) Leukocytosis: Resolved (3) Acute kidney failure: Resolved. Continue outpatient diuretics Discontinue Ibanez catheter (4) Diastolic CHF, chronic: Patient currently remains on 2 L of nasal cannula. Does not use any supplemental oxygen at home. Denies any shortness of breath, cough or any palpitations. Chest x-ray o atelectasis. Courage incentive spirometer and out of bed. Will continue with Bumex 1.5 mg BID. (5) Elevated d-dimer: D-Dimer 1070 -possible secondary to acute abdomen PT had elevated d-dimer in the past Doppler of LE extremities showed no DVT CT chest noncontrast no IV disease no PE (6) HTN (hypertension): BP stable Outpatient meds resumed (7) COPD (chronic obstructive pulmonary disease): Patient wears BiPAP at night with 4L O2, Continue BIpap for now. No evidence of COPD exacerbation at this time. (8) Obesity: -BMI of 37.6 (9) Hypothyroidism: Cont levothyroxine 175 mcg daily (10) Gout: Of ankle pain/gout flare after starting on indomethacin Continue colchicine, (11) Sleep apnea: Continued CPAP nightly (12) DVT prophylaxis: Moderate to high risk for DVT for morbid obese sitting /immobility secondary to surgical abdomen Continue subcu heparin CODE: DNR/DNI Disposition: Discussed with patient's daughter at length, patient has full support system at home with all the equipments needed, almost 6 hours a week caregiver. Discharge home tomorrow with home health home PT Admission and Anticipated Discharge Date Admission Date: June 13, 2020 Subjective Doing much better, lower extremity pain secondary to gout has improved since starting on NSAIDs Has been off TPN since yesterday tolerating solid diet No abdominal pain or discomfort No fever or chills Evaluated by surgery team today Patient is medically stable to be discharged home home in next 24-48 hours Review of Systems Review of Systems: All systems reviewed & are unremarkable except as noted in Subjective Physical Exam Physical Exam: Physical exam: General: Morbidly obese no acute distress, alert awake oriented x3 HEENT: PERRLA, EOMI, Heart: Regular S1-S2, /bilateral lower extremity +1 edema Lungs: Clear to auscultate, no wheeze or rales Abdomen: Distended/surgical site on left lower quadrant intact jonh present, bowel sounds active Extremity: Generalized weakness Improvement of pain no swelling on bilateral ankle/feet Neuro: No focal neurological deficit normal speech, Psych: Alert awake oriented x3, normal affect Results & Data Results & Data ([facility]) Vital Signs (Past 12 Hours) Vital Signs Temp Pulse Pulse Resp BP Pulse Ox 07/03/20 09:06 36.4 C L 83 16 121/73 94 07/03/20 04:11 80 23 94 (1) Acute kidney failure Acute renal failure type: unspecified Qualified Code(s): N17.9 - Acute kidney failure, unspecified
[2020-07-04 05:58] LABS: Hematocrit (blood only) 26.5 % (42-52); Hemoglobin 8.4 g/dL (14.0-18.0); Mean Corpuscular Hemoglobin 29.9 pg (25-34); Mean Corpuscular Hgb Conc 31.7 g/dL (32-36); Mean Corpuscular Volume 94.3 fL (80-100); Mean Platelet Volume 8.7 fL (7.4-10.4); Nucleated RBC # (auto) 0.03 K/uL (0-0); Nucleated RBC % (auto) 0.4 %; Platelet Count 482 K/uL (130-400); RDW Coefficient of Variation 16.1 % (11.5-14.5); RDW Standard Deviation 55.5 fL (36.4-46.3); Red Blood Count 2.81 M/uL (4.7-6.1); White Blood Count 7.68 K/uL (4.8-10.8)
[2020-07-04] MEDS: HEPARIN SOD 5,000 UNIT/0.5 ML VIAL SQ SCH (05:58)
[2020-07-04] MEDS: LEVOTHYROXINE SODIUM 175 MCG TABLET PO SCH (05:58)
[2020-07-04 06:35] LABS: BUN Creatinine Ratio 57.4 (10-20); Calcium 8.8 mg/dl (8.5-10.1); Creatinine Clr Calc Pharmacy 163.7 ml/min; Est GFR (African American) 110.8; Est GFR (Non-African American) 95.6
--- NOTE | 2020-07-04 07:38 | Surgery Progress Note ---
Date of Service July 04, 2020 Assessment & Plan (1) Dilatation of colon: POD#8 WBC 7.6, Cr: 0.6. Patient continues to make progress. Denies any abdominal complaints. + bowel function. Tolerating diet Vann catheter was removed yesterday and he has since required straight cath x1 Abdomen soft, non-tender and incisions c/d/i Plan to have daughter remove jonh at home around POD#14. He can follow up in clinic with Dr. aWre and g-tube to be removed at that time Dispo planning per medicine. Appears he will be discharged to home with home health services Admission and Anticipated Discharge Date Admission Date: June 13, 2020 Supervising Physician Co-Signing Physician Notes Potassium 3.0 today we will give 20 mEq p.o. needs to follow-up repeat potassium level in a day or 2 Subjective Patient says he is doing well. Denies any abdominal complaints. Is tolerating a diet and having + bowel function. Did require a straight cath x1 since vann catheter removal yesterday. Physical Exam Physical Exam: awake/alert Constitutional: no acute distress Respiratory: normal respiratory effort Gastrointestinal (Abdomen): Inspection/Auscultation: + abdominal surgical incision (c/d/i with jonh in place; no signs of infection. G tube capped.) Percussion/Palpation: abdomen soft; abdomen nontender Results & Data ([facility]) Vital Signs (Past 12 Hours) Vital Signs Temp Pulse Pulse Resp BP Pulse Ox 07/04/20 03:19 88 22 95 07/03/20 22:30 80 20 95 07/03/20 22:17 36.3 C L 79 20 142/84 H 92 PG Care Time/CCT Total # of Minutes Spent Total Time Spent with Patient: Total time spent is greater than 50% in coordination of care (as documented) at patient's floor/unit and/or counseling patient: Coding Level of Care Code None Diagnoses Dilatation of colon K59.39
[2020-07-04] MEDS ORDERED: POTASSIUM CHLORIDE CRTAB 20 MEQ TABCR PO STA (08:33)
[2020-07-04] MEDS: guaiFENesin 600 MG TABCR PO SCH (08:35)
[2020-07-04] MEDS: ADVANCED PROBIOTIC 1250 MG CAPSULE PO SCH (08:35)
[2020-07-04] MEDS: BUMETANIDE 1 MG TAB PO SCH (08:36)
[2020-07-04] MEDS: ASPIRIN 81 MG ECTAB PO SCH (08:36)
[2020-07-04] MEDS: PANTOprazole 40 MG TAB PO SCH (08:36)
[2020-07-04] MEDS: amLODIPine BESYLATE 5 MG TAB PO SCH (08:36)
[2020-07-04] MEDS: COLCHICINE 0.6 MG TAB PO SCH (08:37)
[2020-07-04] MEDS ORDERED: POTASSIUM CHLORIDE CRTAB 20 MEQ TABCR PO ONE (09:45)
--- NOTE | 2020-07-04 13:16 | Discharge Summary ---
Date of Service July 04, 2020 Admission HPI Per Admitting Provider This is a 79-year-old male with PMHx of chronic diastolic CHF, HTN, HLD, LVH, pulmonary artery hypertension COPD, obesity hypoventilation syndrome, hypothyroidism, BPH, gout vitamin B12 and D deficiency, obesity with BMI of 37.6 who presents to the hospital with acute onset of abdominal pain. Abd pain began 4/8 in morning with belching and gaseous distention and progressed, noticeable in the right lower quadrant. This morning he had some dry heaving, however did not vomit. He was able to keep down his morning medications. Patient has been able to drink water but has had a very poor appetite in the last week. He reports having bowel movements one last night and one this morning which are soft, and has started taking stool softeners approximately 1 week ago due to feeling constipated. He denies fevers or chills but did report sweats last evening. He called an ambulance this morning and was brought to the ER. His daughter is present at bedside and assists with the history. She reports that he has been using a wheelchair mostly and is able to pivot with a walker however has become weaker in the past few days. He also requires bariatric bed and bedside commode at home. Last Tuesday on [facility] the patient sustained injury to the right lateral leg from his wheelchair. Principal Diagnosis Dilatation of colon Sigmoid volvulus , s/p sigmoid surgery Discharge Exam Physical exam: General: Elderly male no sign of distress, HEENT: PERRLA, EOMI, Heart: Regular S1-S2, no carotid bruit, bilateral lower extremity pitting edema Lungs: Clear to auscultate, no wheeze or rales Abdomen: Soft, active bowel sound, surgical jonh present on mid and left lower quadrant of abdomen, J-tube present Extremity no pain or increased warmth on bilateral feet/ankle Neuro: No focal neurological deficit normal speech, generalized weakness chronic Psych: Alert awake oriented x3, normal affect Discharge Data Allergies Allergy/AdvReac Type Severity Reaction Status Date / Time No Known Allergies Allergy Verified 06/19/20 10:12 Consultations 06/13/20 14:56 ED Decision to Admit Stat 06/14/20 08:00 Consult Gastroenterology Routine Consult General Surgery Routine 06/15/20 08:57 Consult Nephrology Routine 06/24/20 14:01 Consult Cardiology Routine 06/26/20 22:02 Consult Agricultural Extension Agent Routine 07/01/20 06:37 Consult Patient Rep / Service Excellence [Consult Patient Services] Routine Procedures Performed Operation Date: 06/19/20 16:30 Actual Procedures p Colonoscopy with Decompression Tube Plac - Gerri Rutherford DO Operation Date: 06/23/20 16:00 Actual Procedures s Colonoscopy Polypectomy - Rito Sheikh MD p Colonoscopy with Decompression Tube Plac - Rito Sheikh MD Operation Date: 06/26/20 11:45 Actual Procedures p converted to laparotomy, resection of descending sigmoid colon, partial rectal resection, gastrostomy - Hugo Ware MD, FACS s Laparoscopy - Hugo Ware MD, FACS Ordered Studies 06/13/20 14:06 CT abd pelvis wo con Stat 06/13/20 16:11 US venous doppler LE BI Stat 06/15/20 11:47 US renal/blad retro comp Routine 06/18/20 08:57 CT angio chest PE protocol Urgent Hospital Course (1) Dilatation of colon: Admitted on volvulus of colon Status post decompressive colonoscopies performed this admission with sigmoidectomy 06/26. TPN discontinued 2 days back On low fiber diet-tolerating well Appreciate input from surgery Stable to be discharged home, clinic follow-up to remove jonh, and for removal of G-tube (2) Leukocytosis: Resolved (3) Acute kidney failure: Resolved. Continue outpatient diuretics Urinary retention: Ibanez was discontinued yesterday, patient was not not able to void, bladder scan shows almost a liter of residual urine, required straight cath This morning with similar situation, Ibanez catheter ordered, Ordered for Flomax for possible BPH Patient will be discharged home with indwelling Ibanez catheter, urology follow- up in 1-2 weeks for voiding trial Daughter updated (4) Diastolic CHF, chronic: Volume status stable Will continue with Bumex 1.5 mg BID. (5) Elevated d-dimer: D-Dimer 1070 -possible secondary to acute abdomen PT had elevated d-dimer in the past Doppler of LE extremities showed no DVT (6) HTN (hypertension): BP stable Outpatient meds resumed (7) COPD (chronic obstructive pulmonary disease): Patient wears BiPAP at night with 4L O2, Continue BIpap for now. No evidence of COPD exacerbation at this time. (8) Obesity: -BMI of 37.6 (9) Hypothyroidism: Cont levothyroxine 175 mcg daily (10) Gout: Ankle pain/gout flare resolved after indomethacin Patient will be discharged with p.o. colchicine (11) Sleep apnea: Continued CPAP nightly (12) DVT prophylaxis: Moderate to high risk for DVT for morbid obese sitting /immobility secondary to surgical abdomen Continue subcu heparin CODE: DNR/DNI Disposition: Discharge home today with home health home PT Total Time Total Time Spent Total Time Spent (In Minutes): 35 minutes Total Time Includes: Examination of the Patient, Discharge Planning and Medication Reconciliation Discharge Plan Discharge Items Patient Disposition: Home - Home Health Services Reason For Visit: CONSTIPATION Discharge Diagnosis: Dilatation of colon Sigmoid volvulus , s/p sigmoid surgery Activity: As commented below Activity Comment: as tolerated Lifting: No more than 10 pounds Bathing Comment: may shower; no soaking in tubs/pools Non-emergency contact: Primary Care Provider and Surgeon Call non-emergency contact if: you have any medication questions, your symptoms worsen, your pain is not controlled, your pain is worsening, your pain is concerning for you, you have a fever, your temperature is above 101.5, your wound has increased redness, your wound has increased drainage and your wound pain has increased Follow-up/Referrals: Dustin Pastor MD [Physician] - (Urology follow up in 1-2 weeks for urinary retention , voiding trial ) Hugo Ware MD, FACS [Surgeon] - (please call to schedule follow up in clinic within 1-3 weeks.) Perla Saxena MD [Primary Care Provider] - (Date & Time 07/07/2020 12:00 PM Provider Perla Saxena MD Department Family Medicine [facility] ) Diet: Low Fiber Addtl Attending Provider Instructions: Lab : Basic Metabolic Panel , Complete blood count in 1 week Discharged on Ibnaez catheter for urinary retention , Please schedule appointment with Urology in 1-2 weeks for voiding trial You have surgical jonh in place that may be removed when you are at home around post operative day #14 (07/10/20) You have a gastrostomy tube in place that will be removed at your follow up appointment. Addtl Environmental Inspector Provider Instructions: colonoscopy in 6 weeks Pending Studies at Discharge: Yes Studies:: surgical pathology Stand-Alone Forms: My [facility], Smoking Cessation Medications and DC Order Prescriptions: New pantoprazole 40 mg Tablet,Delayed Release (Dr/Ec) 40 mg PO QAM 30 Days Qty: 30 RF: 0 colchicine [Colcrys] 0.6 mg Tablet 0.6 mg PO BID 30 Days Qty: 60 RF: 0 Advanced Probiotic 625 mg (10 billion cell) Capsule 2 cap PO DAILY 30 Days Qty: 60 RF: 0 tamsulosin [Flomax] 0.4 mg capsule 0.4 mg PO HS Qty: 30 RF: 0 Continued (DME) CPAP Machine Misc See Rx Instructions .ROUTE .MEDSUPPLY Qty: 1 RF: 0 (DME) Oxygen Home Liters Per Minute See Rx Instructions .ROUTE .MEDSUPPLY Qty: 1 RF: 0 amlodipine 5 mg tablet 5 mg PO QAM RF: 0 aspirin 81 mg tablet,delayed release (DR/EC) 81 mg PO QAM RF: 0 simvastatin 20 mg tablet 20 mg PO HS RF: 0 cholecalciferol (vitamin D3) 1,000 unit capsule 1,000 units PO QAM RF: 0 bumetanide 1 mg tablet 1.5 mg PO BID RF: 0 colchicine 0.6 mg capsule 0.6 mg PO QAM RF: 0 levothyroxine 175 mcg tablet 175 mcg PO DAILYBB RF: 0 Durezol 0.05 % drops See Rx Instructions .ROUTE .COMPLEX RF: 0 gatifloxacin 0.5 % drops See Rx Instructions .ROUTE .COMPLEX RF: 0 Prolensa 0.07 % drops 1 drp ophthalmic (eye) DAILY RF: 0 calcium carbonate [Tums] 200 mg calcium (500 mg) Tablet,Chewable 200 mg PO BID PRN (Reason: gerd) RF: 0 Discharge Orders: Discharge Order (Routine); Ordered 07/04/20 Ordered By: Ioana Negrete/Other Patient Handouts: DVT Post Op Prevention, Preventing Deep Vein Thrombosis Admission Data Admit Date/Time: 06/13/20 15:56 Attending Provider: Ioana Martin Admit Provider: Lexis Espinal Primary Care Provider: Perla Saxena Other Providers: Efrain Laureano [facility] ; Luz Maria Blackburn ; Stanislav Caceres ; Airam Jackson ; Ashley Snow ; Dillon Woodruff ; [place] ; Jose Torres ; Gerri Rutherford ; Susan Foley ; Gary Reveles ; Steven Mack ; Alexa Bonilla ; Shantel Coon ; Raya Corrigan ; Amy Desai ; Rito Sheikh ; Heber Peralta ; Ruthie Saul ; Britney Rutherford ; [place] ; Baljinder Sandoval ; Bhavana Wills ; Ashley Terry ; Tomas Diehl Jr ; Jo Salguero ; Shola Dover ; Amy Rojas ; Dorinda Horner ; Winston Sousa ; Ashish Ng ; Henna Carlos Other Interventions: Discharge Summary Assessment (RN) Last Done: 07/04/20 12:11
== END 2020-07-04 13:06 | disposition home health service (06) | DRG 329 ==
LOC: ED 12:51 → SUATTDRO 15:56 → 3W 15:56 → 1E 06-14 06:49 → 2W 06-17 21:31 → 1E 06-26 15:57 → 2N 06-27 19:57 → 3E 06-29 11:07 → UNDODISIN 07-04 13:06

== ENCOUNTER 2020-07-06 20:59 | Inpatient (IN) ==
[2020-07-06] MEDS ORDERED: SODIUM CHLORIDE 0.9% 1000ML 2,000 ML IV ONE (21:05)
[2020-07-06] MEDS ORDERED: NOREPINEPHRINE/D5W 8 MG/508 ML IV ONE (21:38)
[2020-07-06] MEDS ORDERED: STAT IV Infusion **Titration per Protocol STA (21:38)
[2020-07-06] MEDS ORDERED: PIPERACILLIN/TAZOBACTAM 4.5 GM/120 ML BAG IV ONE (21:38)
--- NOTE | 2020-07-06 21:38 | Emergency Department Note ---
History of Present Illness General Chief complaint: Unresponsive Stated complaint: ILL Time Seen by Provider: 07/06/20 21:04 Source: family (Daughter) History of Present Illness Provider complaint: Illness Onset (ago): hour(s) 6 79-year-old male presents emergency department with daughter for illness. Daughter reports that around 3 PM the patient started having decreased urine output and he progressive became weaker. She states that the patient eventually became unresponsive. She called EMS. EMS found the patient to be hypoxic and hypotensive. Patient's daughter states that the patient is a DNR/DNI. EMS thus bagged the patient. The daughter states that the patient does have a history of CO2 retention. She states that the patient was just discharged from the hospital 2 days ago after having a sigmoidectomy done by Dr. Rafael Adorno. Home Medications Medication Instructions Recorded Confirmed Type amlodipine 5 mg tablet 5 mg PO QAM 11/20/18 06/13/20 History aspirin 81 mg tablet,delayed 81 mg PO QAM 11/20/18 06/13/20 History release simvastatin 20 mg tablet 20 mg PO HS tab 11/20/18 06/13/20 History bumetanide 1 mg tablet 1.5 mg PO BID tab 01/08/19 06/13/20 History cholecalciferol (vitamin D3) 25 1,000 units PO QAM 01/08/19 06/13/20 History mcg (1,000 unit) capsule colchicine 0.6 mg capsule 0.6 mg PO QAM 01/08/19 06/13/20 History CPAP Machine #1 ea 02/07/19 06/13/20 Rx Oxygen Home #1 ea 05/13/19 06/13/20 Rx calcium carbonate [Tums] 200 mg PO BID PRN 05/16/20 06/13/20 History levothyroxine 175 mcg PO DAILYBB 06/13/20 06/13/20 History colchicine [Colcrys] 0.6 mg PO BID 30 Days #60 tab 07/04/20 Rx pantoprazole 40 mg PO QAM 30 Days #30 tab 07/04/20 Rx tamsulosin [Flomax] 0.4 mg PO HS #30 cap 07/04/20 Rx L.acidop,nury,lac,rha-B.lac,taz 2 cap PO QAM 07/06/20 History [Advanced Probiotic] Allergies Allergy/AdvReac Type Severity Reaction Status Date / Time No Known Allergies Allergy Verified 07/06/20 21:30 Past Med/Surg History Medical History Acute kidney failure on 06/14/20 Anemia Dyslipidemia GERD (gastroesophageal reflux disease) HTN (hypertension) Hx of gout Hypothyroidism Leukocytosis Neuropathy Obesity On home oxygen therapy 4 LPM qHS Restrictive lung disease Sleep apnea BiPAP + O2 at 4 LPM Venous insufficiency Surgical History History of cataract surgery RT. 06/03/20. [facility]. 2mg versed, 50mcg fentanyl. no issues reported. History of colonoscopy S/P laparotomy (06/26/20) Laparoscopy converted to laparotomy, resection of descending sigmoid colon, partial rectal resection, gastrostomy - Hugo Ware MD, FACS Family History Father Hypertension Mother Lung cancer Aunt Diabetes Aunt Diabetes Other No family history of adverse response to anesthesia No significant family history Social History Smoking Status: Never smoker Second Hand Exposure: No; Hx Alcohol Use: No Hx Substance Use: No Preferred Language: Algerian Communication Ability: Effective Visual Impairment: No Limitations Rhia Required: No Beliefs That Will Affect Care: None marital status: Current Living Situation: Spouse 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 Feels Safe at Home: Yes Assistive Devices: Denture - Upper, Denture - Lower and Oxygen - Continuous Review of Systems Unobtainable due to reduced consciousness Physical Exam Vital Signs Vital Signs - 24 hr 07/06/20 21:05 07/06/20 21:10 07/06/20 21:13 Temperature 37.3 C Temperature Source Oral Pulse Rate 86 74 87 Pulse Rate from SpO2 Sensor 76 Respiratory Rate 24 14 20 Respiratory Effort / Characteristics Respiratory Depth Shallow Blood Pressure 82/40 L Blood Pressure [Left Arm] Blood Pressure Mean 54 Blood Pressure Mean [Left Arm] Pulse Oximetry 63 L 64 L Oxygen Delivery Method Nasal Cannula Nasal Cannula Oxygen Flow Rate 5 5 Fraction of Inspired Oxygen Sepsis Recent Fever Within 48 Hours No Sepsis New/Unexplained Change in Mental Status Yes Sepsis Action Taken by Nursing Physician Notified 07/06/20 21:15 07/06/20 21:19 07/06/20 21:20 Temperature Temperature Source Pulse Rate 86 84 Pulse Rate from SpO2 Sensor 82 78 Respiratory Rate 26 H 24 26 H Respiratory Effort / Characteristics Spontaneous Respiratory Depth Blood Pressure Blood Pressure [Left Arm] Blood Pressure Mean Blood Pressure Mean [Left Arm] Pulse Oximetry 76 L 89 L 91 Oxygen Delivery Method Nasal Cannula High Flow Nasal Cannula High Flow Nasal Cannula Oxygen Flow Rate 5 40 40 Fraction of Inspired Oxygen 100 100 Sepsis Recent Fever Within 48 Hours Sepsis New/Unexplained Change in Mental Status Sepsis Action Taken by Nursing 07/06/20 21:21 07/06/20 21:25 07/06/20 21:30 Temperature Temperature Source Pulse Rate 86 82 89 Pulse Rate from SpO2 Sensor 82 77 86 Respiratory Rate 27 H 27 H 27 H Respiratory Effort / Characteristics Respiratory Depth Blood Pressure 64/47 L Blood Pressure [Left Arm] Blood Pressure Mean 52 Blood Pressure Mean [Left Arm] Pulse Oximetry 93 93 94 Oxygen Delivery Method High Flow Nasal Cannula High Flow Nasal Cannula High Flow Nasal Cannula Oxygen Flow Rate 40 40 Fraction of Inspired Oxygen 100 100 Sepsis Recent Fever Within 48 Hours Sepsis New/Unexplained Change in Mental Status Sepsis Action Taken by Nursing 07/06/20 21:31 07/06/20 21:32 07/06/20 21:35 Temperature Temperature Source Pulse Rate 85 87 Pulse Rate from SpO2 Sensor 83 85 Respiratory Rate 31 H 32 H Respiratory Effort / Characteristics Respiratory Depth Blood Pressure 67/45 L 58/45 L Blood Pressure [Left Arm] 70/40 L Blood Pressure Mean 52 49 Blood Pressure Mean [Left Arm] 50 Pulse Oximetry 93 92 Oxygen Delivery Method High Flow Nasal Cannula High Flow Nasal Cannula Oxygen Flow Rate Fraction of Inspired Oxygen Sepsis Recent Fever Within 48 Hours Sepsis New/Unexplained Change in Mental Status Sepsis Action Taken by Nursing 07/06/20 21:40 07/06/20 21:45 07/06/20 21:50 Temperature Temperature Source Pulse Rate 86 86 87 Pulse Rate from SpO2 Sensor 82 86 88 Respiratory Rate 29 H 31 H 35 H Respiratory Effort / Characteristics Respiratory Depth Blood Pressure 61/48 L 62/44 L Blood Pressure [Left Arm] Blood Pressure Mean 52 50 Blood Pressure Mean [Left Arm] Pulse Oximetry 88 L 91 91 Oxygen Delivery Method Mechanical Vent Mechanical Vent Mechanical Vent Oxygen Flow Rate Fraction of Inspired Oxygen 100 100 100 Sepsis Recent Fever Within 48 Hours Sepsis New/Unexplained Change in Mental Status Sepsis Action Taken by Nursing 07/06/20 21:51 07/06/20 21:55 07/06/20 22:00 Temperature Temperature Source Pulse Rate 88 102 H 105 H Pulse Rate from SpO2 Sensor 88 110 H Respiratory Rate 34 H 24 25 H Respiratory Effort / Characteristics Respiratory Depth Blood Pressure 98/60 L 50/42 L Blood Pressure [Left Arm] Blood Pressure Mean 72 44 Blood Pressure Mean [Left Arm] Pulse Oximetry 90 98 92 Oxygen Delivery Method Oxygen Flow Rate Fraction of Inspired Oxygen 100 100 Sepsis Recent Fever Within 48 Hours Sepsis New/Unexplained Change in Mental Status Sepsis Action Taken by Nursing 07/06/20 22:01 07/06/20 22:05 07/06/20 22:10 Temperature Temperature Source Pulse Rate 103 H 102 H 92 H Pulse Rate from SpO2 Sensor 91 H Respiratory Rate 25 H 24 24 Respiratory Effort / Characteristics Respiratory Depth Blood Pressure 106/68 Blood Pressure [Left Arm] Blood Pressure Mean 80 Blood Pressure Mean [Left Arm] Pulse Oximetry 91 98 Oxygen Delivery Method Mechanical Vent Oxygen Flow Rate Fraction of Inspired Oxygen 100 Sepsis Recent Fever Within 48 Hours Sepsis New/Unexplained Change in Mental Status Sepsis Action Taken by Nursing 07/06/20 22:15 07/06/20 22:20 07/06/20 22:25 Temperature Temperature Source Pulse Rate 88 86 92 H Pulse Rate from SpO2 Sensor 85 86 93 H Respiratory Rate 24 24 24 Respiratory Effort / Characteristics Respiratory Depth Blood Pressure 115/69 126/86 Blood Pressure [Left Arm] Blood Pressure Mean 84 99 Blood Pressure Mean [Left Arm] Pulse Oximetry 100 99 100 Oxygen Delivery Method Mechanical Vent Mechanical Vent Mechanical Vent Oxygen Flow Rate Fraction of Inspired Oxygen 100 100 100 Sepsis Recent Fever Within 48 Hours Sepsis New/Unexplained Change in Mental Status Sepsis Action Taken by Nursing 07/06/20 22:26 07/06/20 22:30 07/06/20 22:35 Temperature Temperature Source Pulse Rate 93 H 94 H 89 Pulse Rate from SpO2 Sensor 94 H 87 Respiratory Rate 13 25 H 24 Respiratory Effort / Characteristics Respiratory Depth Blood Pressure 131/99 124/82 122/78 Blood Pressure [Left Arm] Blood Pressure Mean 109 96 92 Blood Pressure Mean [Left Arm] Pulse Oximetry 96 100 98 Oxygen Delivery Method Mechanical Vent Mechanical Vent Mechanical Vent Oxygen Flow Rate Fraction of Inspired Oxygen 100 100 80 Sepsis Recent Fever Within 48 Hours Sepsis New/Unexplained Change in Mental Status Sepsis Action Taken by Nursing 07/06/20 22:40 07/06/20 22:41 05/02/21 22:45 Temperature Temperature Source Pulse Rate 82 79 90 Pulse Rate from SpO2 Sensor 86 92 H Respiratory Rate 21 24 24 Respiratory Effort / Characteristics Respiratory Depth Blood Pressure 99/78 L Blood Pressure [Left Arm] Blood Pressure Mean 85 Blood Pressure Mean [Left Arm] Pulse Oximetry 95 97 99 Oxygen Delivery Method Mechanical Vent Mechanical Vent Oxygen Flow Rate Fraction of Inspired Oxygen 80 80 Sepsis Recent Fever Within 48 Hours Sepsis New/Unexplained Change in Mental Status Sepsis Action Taken by Nursing 07/06/20 22:46 07/06/20 22:47 07/06/20 22:50 Temperature Temperature Source Pulse Rate 91 H 91 H 85 Pulse Rate from SpO2 Sensor 90 90 85 Respiratory Rate 24 24 24 Respiratory Effort / Characteristics Respiratory Depth Blood Pressure 135/79 128/70 Blood Pressure [Left Arm] Blood Pressure Mean 97 89 Blood Pressure Mean [Left Arm] Pulse Oximetry 98 98 95 Oxygen Delivery Method Mechanical Vent Mechanical Vent Mechanical Vent Oxygen Flow Rate Fraction of Inspired Oxygen 80 80 80 Sepsis Recent Fever Within 48 Hours Sepsis New/Unexplained Change in Mental Status Sepsis Action Taken by Nursing Physical Exam GENERAL: Patient appears ill. HENT: Exam performed. - Head: Normocephalic and atraumatic. - Right Ear: External ear normal. No mastoid tenderness. - Left Ear: External ear normal. No mastoid tenderness. - Mouth/Throat: The oropharynx is clear and moist. No trismus in the jaw. No dental abscesses or uvula swelling. No oropharyngeal exudate or tonsillar abscesses. EYES: Conjunctivae and EOM are normal. Pupils are equal, round, and reactive to light. Right eye exhibits no discharge. Left eye exhibits no discharge. No scle ral icterus. CV: Normal rate, regular rhythm, normal heart sounds and intact distal pulses. There is no peripheral edema. Palpable radial pulses bue. PULM/CHEST: Diminished breath sounds bilaterally. ABD: The abdomen is distended. Patient has a G-tube in place. No surrounding erythema. Surgical jnoh are in place over the anterior abdomen with no surrounding erythema discharge or bleeding. NEURO: GCS eye subscore is 2. GCS verbal subscore is 2. GCS motor subscore is 4. EXTREMETIES: Diffuse peripheral edema. Procedures Intubation sedative: Etomidate Mg Given: 20 paralytic: Rocuronium Mg Given: 140 Laryngoscope: other (glidescope) ET Tube Size: 7.5 ET Tube Uncuffed: Yes Tube Secured Depth (cm): 23 Tube Secured Location: teeth Tube Placement Confirmation: visualized tube passing through cords, equal breath sounds bilaterally, no breath sounds over epigastrium and confirmation by ca pnometry Patient Tolerated Procedure: well Intubation Complications: none Course Course 2043: Received a call from EMS that the patient was inbound 20-minute arrival time. Patient is hypotensive and hypoxic. 2103: The patient was evaluated in room B1. A complete history and physical exam was performed Cardiac monitoring: An order was placed for continuous cardiac monitoring. The monitor shows a rate of 90 with sinus rhythm EMR reviewed. Patient is a DNR/DNI from 2018. Patient was admitted from June 13 to July 04, 2020. During his hospital admission the patient developed a s igmoid volvulus and needed to have a sigmoidectomy done by Dr. Rafael Adorno. Patient has a low GCS score. I again discussed with the daughter if she would like the patient intubated and she states she does not want the patient to be intubated or have chest compressions or to have shocks but wants everything else done for the patient. Sepsis protocols were initiated. 2136: Chest x-ray shows free air under the diaphragm. Paged general surgery Dr. Damon says he is coming in and will evaluate the patient for the OR. He states that if the patient is going to go to the OR that we should intubate him here. I did discuss this with the daughter and she is in agreement to allow us to intubate the patient. Zosyn ordered for the patient and the patient will be started on Levophed to improve his blood pressure. 2205: Dr. Damon at bedside. Administered Medications Norepinephrine Bitartrate (Levophed/D5w) 8 mg in 508 mls @ 84.011 mls/hr IV .Q6H3M [facility]; Protocol Stop: 08/05/20 21:44 Last Titration: 07/06/20 22:41 Dose: 0.15 mcg/kg/min, 84 mls/hr Documented by: [id number] Titration: 07/06/20 22:28 Dose: 0.12 mcg/kg/min, 67.2 mls/hr Documented by: [id number] Titration: 07/06/20 22:07 Dose: 0.15 mcg/kg/min, 84 mls/hr Documented by: [id number] Titration: 07/06/20 22:00 Dose: 0.1 mcg/kg/min, 56 mls/hr Documented by: [id number] Admin: 07/06/20 21:49 Dose: 0.05 mcg/kg/min, 28 mls/hr Documented by: [id number] Cosigned by: [id number] Discontinued Medications Sodium Chloride (Nss 1000ml) 2,000 mls @ 999 mls/hr IV .Q2H1M ONE Stop: 07/06/20 23:05 Last Admin: 07/06/20 21:36 Dose: 999 mls/hr Documented by: [id number] Piperacillin Sod/Tazobactam Sod (Zosyn) 4.5 gm in 120 mls @ 240 mls/hr IV NOW ONE Stop: 07/06/20 22:07 Last Infusion: 07/06/20 22:29 Dose: 0 mls/hr Documented by: [id number] Admin: 07/06/20 21:54 Dose: 240 mls/hr Documented by: [id number] Miscellaneous (Stat Iv Infusion Titration Per Protocol) 1 ea N/A NOW STA Stop: 07/06/20 21:39 Last Admin: 07/06/20 21:54 Dose: 1 ea Documented by: [id number] Miscellaneous (Rapid Sequence Induction Bag) Confirm Administered Dose 1 ea .ROUTE .STK-MED ONE Stop: 07/06/20 21:44 Last Admin: 07/06/20 21:49 Dose: 1 ea Documented by: [id number] Miscellaneous (Rapid Sequence Induction Bag) Confirm Administered Dose 1 ea .ROUTE .STK-MED ONE Stop: 07/06/20 21:47 Last Admin: 07/06/20 21:51 Dose: 1 ea Documented by: [id number] Norepinephrine Bitartrate (Norepinephrine/D5w 8 Mg/508 Ml) Confirm Administered Dose 8 mg IV .STK-MED ONE Stop: 07/06/20 21:39 Last Admin: 07/06/20 21:50 Dose: Not Given Documented by: [id number] Critical Care Time Critical Care Time: Yes Total Critical Care Time: 79 I have personally spent greater than 79 minutes of critical care time in the direct management of this patient. This includes bedside care, interpretation of diagnostic studies, and testing, discussion with consultants, patient, and family members, and other required patient management activities. This 79 minutes is in excess of all separately billable procedures. Medical Decision Making Laboratory Data Result diagrams: 07/06/20 21:26 07/06/20 21:26 Lab Results 07/06/20 07/06/20 07/06/20 Range/Units 21:26 21:26 21:26 WBC 20.46 H (4.8-10.8) K/uL RBC 3.47 L (4.7-6.1) M/uL Hgb 10.5 L (14.0-18.0) g/dL Hct 32.6 L (42-52) % MCV 93.9 (80-100) fL MCH 30.3 (25-34) pg MCHC 32.2 (32-36) g/dL RDW Std Deviation 56.6 H (36.4-46.3) fL RDW Coeff of Maximilian 16.6 H (11.5-14.5) % Plt Count 634 H (130-400) K/uL MPV 8.9 (7.4-10.4) fL Immature Gran % (Auto) 6.4 % Neut % (Auto) 82.6 % Lymph % (Auto) 7.4 % Isabela % (Auto) 3.3 % Eos % (Auto) 0.1 % Baso % (Auto) 0.2 % Neut # (Auto) 16.90 H (1.4-6.5) K/uL Lymph # (Auto) 1.52 (1.2-3.4) K/uL Isabela # (Auto) 0.67 H (0.11-0.59) K/uL Eos # (Auto) 0.02 (0-0.5) K/uL Baso # (Auto) 0.05 (0-0.2) K/uL Immature Gran # (Auto) 1.30 H (0.00-0.02) K/uL Absolute Nucleated RBC 0.15 H (0-0) K/uL Nucleated RBC % (auto) 0.7 % PT 12.2 H (9.0-12.0) Seconds INR 1.2 H (0.9-1.1) APTT 28.8 (21.0-31.0) Seconds PTT Ratio 1.1 Sodium 142 (136-145) mmol/L Potassium 3.0 L (3.5-5.1) mmol/L Chloride 101 (98-107) mmol/L Carbon Dioxide 33 H (21-32) mmol/L Anion Gap 8.0 (3-11) BUN 30 H (7-18) mg/dl Creatinine 1.66 H (0.6-1.4) mg/dl Est Cr Clr Drug Dosing 58.0 ml/min Est GFR ( Amer) 44.8 Est GFR (Non-Af Amer) 38.6 BUN/Creatinine Ratio 18.3 (10-20) Glucose 170 H (70-99) mg/dl Lactate (0.4-2.0) mmol/L Calcium 8.1 L (8.5-10.1) mg/dl Magnesium 1.9 (1.8-2.4) mg/dl Total Bilirubin 0.3 (0.2-1) mg/dl AST 17 (15-37) U/L ALT 24 (12-78) U/L Alkaline Phosphatase 109 (45-117) U/L Troponin I < 0.015 (0-0.045) ng/ml NT-Pro-B Natriuret Pep 1773 (0-1800) pg/ml Total Protein 6.1 L (6.4-8.2) gm/dl Albumin 1.5 L (3.4-5.0) gm/dl Globulin 4.6 H (2.5-4.0) gm/dl Albumin/Globulin Ratio 0.3 L (0.9-2) Lipase 80 (73-393) U/L Procalcitonin (0-0.5) ng/ml COVID-19 Eval Order SARS-CoV-2 (PCR) (Negative) Influenza Type A (PCR) (Neg) Influenza Type B (PCR) (Neg) RSV (RT-PCR) (Neg) Blood Type Antibody Screen Crossmatch 07/06/20 07/06/20 07/06/20 Range/Units 21:26 21:26 21:26 WBC (4.8-10.8) K/uL RBC (4.7-6.1) M/uL Hgb (14.0-18.0) g/dL Hct (42-52) % MCV (80-100) fL MCH (25-34) pg MCHC (32-36) g/dL RDW Std Deviation (36.4-46.3) fL RDW Coeff of Maximilian (11.5-14.5) % Plt Count (130-400) K/uL MPV (7.4-10.4) fL Immature Gran % (Auto) % Neut % (Auto) % Lymph % (Auto) % Isabela % (Auto) % Eos % (Auto) % Baso % (Auto) % Neut # (Auto) (1.4-6.5) K/uL Lymph # (Auto) (1.2-3.4) K/uL Isabela # (Auto) (0.11-0.59) K/uL Eos # (Auto) (0-0.5) K/uL Baso # (Auto) (0-0.2) K/uL Immature Gran # (Auto) (0.00-0.02) K/uL Absolute Nucleated RBC (0-0) K/uL Nucleated RBC % (auto) % PT (9.0-12.0) Seconds INR (0.9-1.1) APTT (21.0-31.0) Seconds PTT Ratio Sodium (136-145) mmol/L Potassium (3.5-5.1) mmol/L Chloride (98-107) mmol/L Carbon Dioxide (21-32) mmol/L Anion Gap (3-11) BUN (7-18) mg/dl Creatinine (0.6-1.4) mg/dl Est Cr Clr Drug Dosing ml/min Est GFR ( Amer) Est GFR (Non-Af Amer) BUN/Creatinine Ratio (10-20) Glucose (70-99) mg/dl Lactate 4.8 H* (0.4-2.0) mmol/L Calcium (8.5-10.1) mg/dl Magnesium (1.8-2.4) mg/dl Total Bilirubin (0.2-1) mg/dl AST (15-37) U/L ALT (12-78) U/L Alkaline Phosphatase (45-117) U/L Troponin I (0-0.045) ng/ml NT-Pro-B Natriuret Pep (0-1800) pg/ml Total Protein (6.4-8.2) gm/dl Albumin (3.4-5.0) gm/dl Globulin (2.5-4.0) gm/dl Albumin/Globulin Ratio (0.9-2) Lipase (73-393) U/L Procalcitonin 3.00 H (0-0.5) ng/ml COVID-19 Eval Order SARS-CoV-2 (PCR) (Negative) Influenza Type A (PCR) (Neg) Influenza Type B (PCR) (Neg) RSV (RT-PCR) (Neg) Blood Type O Positive Antibody Screen NEGATIVE Crossmatch See Detail 07/06/20 07/06/20 Range/Units 21:32 21:32 WBC (4.8-10.8) K/uL RBC (4.7-6.1) M/uL Hgb (14.0-18.0) g/dL Hct (42-52) % MCV (80-100) fL MCH (25-34) pg MCHC (32-36) g/dL RDW Std Deviation (36.4-46.3) fL RDW Coeff of Maximilian (11.5-14.5) % Plt Count (130-400) K/uL MPV (7.4-10.4) fL Immature Gran % (Auto) % Neut % (Auto) % Lymph % (Auto) % Isabela % (Auto) % Eos % (Auto) % Baso % (Auto) % Neut # (Auto) (1.4-6.5) K/uL Lymph # (Auto) (1.2-3.4) K/uL Isabela # (Auto) (0.11-0.59) K/uL Eos # (Auto) (0-0.5) K/uL Baso # (Auto) (0-0.2) K/uL Immature Gran # (Auto) (0.00-0.02) K/uL Absolute Nucleated RBC (0-0) K/uL Nucleated RBC % (auto) % PT (9.0-12.0) Seconds INR (0.9-1.1) APTT (21.0-31.0) Seconds PTT Ratio Sodium (136-145) mmol/L Potassium (3.5-5.1) mmol/L Chloride (98-107) mmol/L Carbon Dioxide (21-32) mmol/L Anion Gap (3-11) BUN (7-18) mg/dl Creatinine (0.6-1.4) mg/dl Est Cr Clr Drug Dosing ml/min Est GFR ( Amer) Est GFR (Non-Af Amer) BUN/Creatinine Ratio (10-20) Glucose (70-99) mg/dl Lactate (0.4-2.0) mmol/L Calcium (8.5-10.1) mg/dl Magnesium (1.8-2.4) mg/dl Total Bilirubin (0.2-1) mg/dl AST (15-37) U/L ALT (12-78) U/L Alkaline Phosphatase (45-117) U/L Troponin I (0-0.045) ng/ml NT-Pro-B Natriuret Pep (0-1800) pg/ml Total Protein (6.4-8.2) gm/dl Albumin (3.4-5.0) gm/dl Globulin (2.5-4.0) gm/dl Albumin/Globulin Ratio (0.9-2) Lipase (73-393) U/L Procalcitonin (0-0.5) ng/ml COVID-19 Eval Order [facility]Rsv at [facility] SARS-CoV-2 (PCR) NEGATIVE (Negative) Influenza Type A (PCR) Negative (Neg) Influenza Type B (PCR) Negative (Neg) RSV (RT-PCR) Negative (Neg) Blood Type Antibody Screen Crossmatch Imaging Data My Impression: CXR 2116: Free air under the diaphragm. Cardiomegaly with cephalization. Skeletal structures intact. CXR 2147: Attempt #1 shows ET tube 4 cm above the jie. Attempt #2 shows ET tube 2.5 cm above the jie. ECG Data Indication: + SOB/dyspnea Rate (beats per minute): 87 Rhythm: + normal sinus ECG Intervals/blocks: + First degree AV block and + Right Bundle branch block ECG ST segments: + Normal ST segments Comparison ECG Date: from (June 25, 2020) Change: no significant change Additional Comments: VT 246 QRS 140 QTc 474 MDM Narrative 2043: Received a call from EMS that the patient was inbound 20-minute arrival time. Patient is hypotensive and hypoxic. 2103: The patient was evaluated in room B1. A complete history and physical exam was performed Cardiac monitoring: An order was placed for continuous cardiac monitoring. The monitor shows a rate of 90 with sinus rhythm EMR reviewed. Patient is a DNR/DNI from 2018. Patient was admitted from June 13 to July 04, 2020. During his hospital admission the patient developed a sigmoid volvulus and needed to have a sigmoidectomy done by Dr. Rafael Adorno. Patient has a low GCS score. I again discussed with the daughter if she would like the patient intubated and she states she does not want the patient to be intubated or have chest compressions or to have shocks but wants everything else done for the patient. Sepsis protocols were initiated. 2136: Chest x-ray shows free air under the diaphragm. Paged general surgery Dr. Damon says he is coming in and will evaluate the patient for the OR. He states that if the patient is going to go to the OR that we should intubate him here. I did discuss this with the daughter and she is in agreement to allow us to intubate the patient. Zosyn ordered for the patient and the patient will be started on Levophed to improve his blood pressure. 2205: Dr. Damon at bedside. Impression & Plan Bowel perforation, Sepsis, Respiratory failure Discharge Plan Visit Data Chief Complaint: Unresponsive Stated Complaint: ILL ED Provider: Yazan Finn Discharge Problem: Bowel perforation, Sepsis, Respiratory failure Patient Disposition: Admitted As Inpatient Discharge Instructions Interventions: ED Discharge Assessment Last Done: 07/06/20 23:15 Discharge Problem: Sepsis Qualifiers: Sepsis type: sepsis due to unspecified organism Sepsis acute organ dysfunction status: unspecified Qualified Code(s): A41.9 - Sepsis, unspecified organism Respiratory failure Qualifiers: Chronicity: acute Respiratory failure complication: hypoxia and hypercapnia Qualified Code(s): J96.01 - Acute respiratory failure with hypoxia
[2020-07-06 21:39] LABS: Hematocrit (blood only) 32.6 % (42-52); Hemoglobin 10.5 g/dL (14.0-18.0); Mean Corpuscular Hemoglobin 30.3 pg (25-34); Mean Corpuscular Hgb Conc 32.2 g/dL (32-36); Mean Corpuscular Volume 93.9 fL (80-100); Mean Platelet Volume 8.9 fL (7.4-10.4); Nucleated RBC # (auto) 0.15 K/uL (0-0); Nucleated RBC % (auto) 0.7 %; Platelet Count 634 K/uL (130-400); RDW Coefficient of Variation 16.6 % (11.5-14.5); RDW Standard Deviation 56.6 fL (36.4-46.3); Red Blood Count 3.47 M/uL (4.7-6.1); White Blood Count 20.46 K/uL (4.8-10.8)
[2020-07-06] MEDS ORDERED: RAPID SEQUENCE INDUCTION BAG ONE ×2 (21:43→21:46)
[2020-07-06 21:46] LABS: INR 1.2 (0.9-1.1); Partial Thromboplastin Ratio 1.1; Partial Thromboplastin Time 28.8 Seconds (21.0-31.0); Prothrombin Time 12.2 Seconds (9.0-12.0)
[2020-07-06] MEDS: NOREPINEPHRINE/D5W 8 MG/508 ML BAG IV SCH (21:49)
[2020-07-06 21:54] LABS: Basophils # (auto) 0.05 K/uL (0-0.2); Basophils % (auto) 0.2 %; Eosinophils # (auto) 0.02 K/uL (0-0.5); Eosinophils % (auto) 0.1 %; Immature Granulocytes % (auto) 6.4 %; Lymphocytes # (auto) 1.52 K/uL (1.2-3.4); Lymphocytes % (auto) 7.4 %; Monocytes # (auto) 0.67 K/uL (0.11-0.59); Monocytes % (auto) 3.3 %; Neutrophils % (auto) 82.6 %
[2020-07-06 21:56] LABS: Alanine Aminotransferase 24 U/L (12-78); Albumin Level 1.5 gm/dl (3.4-5.0); Aspartate Aminotransferase 17 U/L (15-37); BUN Creatinine Ratio 18.3 (10-20); Blood Urea Nitrogen 30 mg/dl (7-18); Calcium 8.1 mg/dl (8.5-10.1); Carbon Dioxide 33 mmol/L (21-32); Chloride 101 mmol/L (98-107); Est GFR (African American) 44.8; Est GFR (Non-African American) 38.6; Glucose 170 mg/dl (70-99); Lipase 80 U/L (73-393); Magnesium 1.9 mg/dl (1.8-2.4); Sodium 142 mmol/L (136-145)
[2020-07-06 22:03] LABS: Albumin Globulin Ratio 0.3 (0.9-2); Alkaline Phosphatase 109 U/L (45-117); Bilirubin,Total 0.3 mg/dl (0.2-1); Globulin 4.6 gm/dl (2.5-4.0); NT Pro B Type Natriuretic Pept 1773 pg/ml (0-1800); Total Protein 6.1 gm/dl (6.4-8.2); Troponin I < 0.015 ng/ml (0-0.045)
--- NOTE | 2020-07-06 22:30 | History & Physical Report ---
Date of Service July 06, 2020 Assessment & Plan (1) Perforated viscus: Etiology of his deterioration appears to be perforated viscus. Potential etiologies could be anastomotic leak versus perforated ulcer versus leakage at the gastrostomy site versus other. Discussed the risks with the patient's daughter which include bleeding, infection, injury to another organ, DVT, PE, TN, CVA etc. Patient's daughter is a nurse here at the hospital. She is well aware of the high risk situation and relatively high morbidity and mortality rates. We discussed potential for colostomy. She is agreeable and we will proceed with an exploratory laparotomy possible colostomy surgery as needed. History of Present Illness Primary Care Provider: Perla Saxena MD 79-year old white male approximately 9 days status post open sigmoidectomy for sigmoid volvulus. He was discharged this past Tuesday. Patient was intubated by the emergency room physician. History as per the emergency room physician and patient's daughter at bedside. He was doing reasonably well until today. He began of increasing abdominal pain. He did eat today and also had a bowel movement earlier today. Following eating he began to become lethargic. Shortly after EMS arrived he became less responsive. Upon arrival at the emergency room he was hypotensive and unable to answer questions. Chest x-ray in the emergency room shows massive free air under both diaphragms. His white blood cell count is 20. Allergies Allergy/AdvReac Type Severity Reaction Status Date / Time No Known Allergies Allergy Verified 07/06/20 21:30 Home Medications Medication Instructions Recorded Confirmed Type amlodipine 5 mg tablet 5 mg PO QAM 11/20/18 06/13/20 History aspirin 81 mg tablet,delayed 81 mg PO QAM 11/20/18 06/13/20 History release simvastatin 20 mg tablet 20 mg PO HS tab 11/20/18 06/13/20 History bumetanide 1 mg tablet 1.5 mg PO BID tab 01/08/19 06/13/20 History cholecalciferol (vitamin D3) 25 1,000 units PO QAM 01/08/19 06/13/20 History mcg (1,000 unit) capsule colchicine 0.6 mg capsule 0.6 mg PO QAM 01/08/19 06/13/20 History CPAP Machine #1 ea 02/07/19 06/13/20 Rx Oxygen Home #1 ea 05/13/19 06/13/20 Rx calcium carbonate [Tums] 200 mg PO BID PRN 05/16/20 06/13/20 History levothyroxine 175 mcg PO DAILYBB 06/13/20 06/13/20 History colchicine [Colcrys] 0.6 mg PO BID 30 Days #60 tab 07/04/20 Rx pantoprazole 40 mg PO QAM 30 Days #30 tab 07/04/20 Rx tamsulosin [Flomax] 0.4 mg PO HS #30 cap 07/04/20 Rx L.acidop,nury,lac,rha-B.lac,taz 2 cap PO QAM 07/06/20 History [Advanced Probiotic] Past Med/Surg History Medical History (Updated 07/06/20 @ 22:29 by Shola Damon, DO) Acute kidney failure on 06/14/20 Anemia Dyslipidemia GERD (gastroesophageal reflux disease) HTN (hypertension) Hx of gout Hypothyroidism Leukocytosis Neuropathy Obesity On home oxygen therapy 4 LPM qHS Restrictive lung disease Sleep apnea BiPAP + O2 at 4 LPM Venous insufficiency Surgical History (Updated 06/26/20 @ 17:29 by Ludivina Simms RN) History of cataract surgery RT. 06/03/20. [facility]. 2mg versed, 50mcg fentanyl. no issues reported. History of colonoscopy S/P laparotomy (06/26/20) Laparoscopy converted to laparotomy, resection of descending sigmoid colon, partial rectal resection, gastrostomy - Hugo Ware MD, FACS Family History Father Hypertension Mother Lung cancer Aunt Diabetes Aunt Diabetes Other No family history of adverse response to anesthesia No significant family history Social History Smoking Status: Never smoker Second Hand Exposure: No; Hx Alcohol Use: No Hx Substance Use: No Preferred Language: Fijian Communication Ability: Effective Visual Impairment: No Limitations Ocular Care Technologist Required: No Beliefs That Will Affect Care: None marital status: Current Living Situation: Spouse 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 Feels Safe at Home: Yes Assistive Devices: Denture - Upper, Denture - Lower and Oxygen - Continuous Review of Systems All systems reviewed & are unremarkable except as noted in HPI & below Physical Exam Constitutional: Patient unresponsive and intubated Eyes: PERRL, conjunctivae normal, anicteric sclerae EOM intact bilaterally ENMT: external ear and nose normal, oropharynx normal Ears: no hearing impairment Neck: trachea midline, no thyromegaly Respiratory: normal respiratory effort; no respiratory distress and does not use accessory muscles Cardiovascular: Rate/Rhythm: regular rate and regular rhythm Gastrointestinal (Abdomen): Obese. His previous incisions are well-healed with no dehiscence and no sign of infection or drainage. Gastrostomy tube in place. Skin: Several areas of skin breakdown and ecchymosis of the upper extremities. Psychiatric: Orientation: alert, oriented x 3 and cooperative Results & Data (MN) Vital Signs (Past 12 Hours) Vital Signs Temp Pulse Resp BP BP Pulse Ox 07/06/20 22:15 88 24 115/69 100 07/06/20 22:10 92 H 24 106/68 98 07/06/20 22:05 102 H 24 07/06/20 22:01 103 H 25 H 91 07/06/20 22:00 105 H 25 H 50/42 L 92 07/06/20 21:55 110 H 27 H 95 07/06/20 21:51 88 34 H 98/60 L 90 07/06/20 21:50 87 35 H 91 07/06/20 21:45 86 31 H 62/44 L 91 07/06/20 21:40 86 29 H 61/48 L 88 L 07/06/20 21:35 87 32 H 58/45 L 92 07/06/20 21:32 85 31 H 67/45 L 93 07/06/20 21:31 70/40 L 07/06/20 21:30 89 27 H 94 07/06/20 21:25 82 27 H 93 07/06/20 21:21 86 27 H 64/47 L 93 07/06/20 21:20 84 26 H 91 07/06/20 21:15 86 26 H 76 L 07/06/20 21:13 37.3 C 87 20 82/40 L 64 L 07/06/20 21:10 74 14 63 L 07/06/20 21:05 86 24
--- NOTE | 2020-07-06 22:37 | Anesthesiology Consultation ---
Date of Service July 06, 2020 Assessment & Plan Chart Review Chart Review: Acceptable Risk for Surgery and Patient NOT seen in Pre Admission Testing Consults Requested none ASA [id number] Proposed Anesthesia Anesthesia Type: General Anesthesia Line Insertion: Arterial line and Central Venous Catheter History Surgery Operation Date: 07/06/20 23:00 Proposed Procedures p Exploratory Laparotomy - Shola Damon, Height/Weight Height: 6 ft 6 in Weight: 147 kg Allergies Allergy/AdvReac Type Severity Reaction Status Date / Time No Known Allergies Allergy Verified 07/06/20 21:30 Medications Home Medications Medication Instructions Recorded Confirmed Last Taken amlodipine 5 mg tablet 5 mg PO QAM 11/20/18 06/13/20 07/06/20 aspirin 81 mg tablet,delayed 81 mg PO QAM 11/20/18 06/13/20 07/06/20 release simvastatin 20 mg tablet 20 mg PO HS tab 11/20/18 06/13/20 07/05/20 bumetanide 1 mg tablet 1.5 mg PO BID tab 01/08/19 06/13/20 07/06/20 cholecalciferol (vitamin D3) 25 1,000 units PO QAM 01/08/19 06/13/20 07/06/20 mcg (1,000 unit) capsule colchicine 0.6 mg capsule 0.6 mg PO QAM 01/08/19 06/13/20 07/06/20 CPAP Machine #1 ea 02/07/19 06/13/20 Unknown Oxygen Home #1 ea 05/13/19 06/13/20 Unknown calcium carbonate [Tums] 200 mg PO BID PRN 05/16/20 06/13/20 06/13/20 levothyroxine 175 mcg PO DAILYBB 06/13/20 06/13/20 07/06/20 colchicine [Colcrys] 0.6 mg PO BID 30 Days #60 tab 07/04/20 07/06/20 pantoprazole 40 mg PO QAM 30 Days #30 tab 07/04/20 07/06/20 tamsulosin [Flomax] 0.4 mg PO HS #30 cap 07/04/20 07/05/20 L.acidop,nury,lac,rha-B.lac,taz 2 cap PO QAM 07/06/20 07/06/20 [Advanced Probiotic] Active Medications Generic Name Dose Route Start Last Admin Trade Name Freq PRN Reason Stop Dose Admin Sodium Chloride 2,000 mls @ 999 mls/hr 07/06/20 21:05 07/06/20 21:36 Nss 1000ml IV 07/06/20 23:05 999 mls/hr .Q2H1M ONE Administration Norepinephrine Bitartrate 8 mg in 508 mls @ 28.004 mls/hr 07/06/20 21:45 07/06/20 22:28 Levophed/D5w IV 08/05/20 21:44 0.12 mcg/kg/min .Q18H9M YOSSI 67.2 mls/hr Titration Protocol 0.05 MCG/KG/MIN Past Medical History Medical History Acute kidney failure on 06/14/20 Anemia Dyslipidemia GERD (gastroesophageal reflux disease) HTN (hypertension) Hx of gout Hypothyroidism Leukocytosis Neuropathy Obesity On home oxygen therapy 4 LPM qHS Restrictive lung disease Sleep apnea BiPAP + O2 at 4 LPM Venous insufficiency Exercise / Class Metabolic Activity III < 4 Walking/Shop/Light housework Past Family History Family History Father Hypertension Mother Lung cancer Aunt Diabetes Aunt Diabetes Other No family history of adverse response to anesthesia No significant family history Past Surgical History Surgical History History of cataract surgery RT. 06/03/20. [facility]. 2mg versed, 50mcg fentanyl. no issues reported. History of colonoscopy S/P laparotomy (06/26/20) Laparoscopy converted to laparotomy, resection of descending sigmoid colon, partial rectal resection, gastrostomy - Hugo Ware MD, FACS Past Anesthesia History No Hx of Anesthesia Complications and No Family Hx of Anesthesia Complications History of PONV No Hx of PONV and No Hx of Motion Sickness Social History Smoking Status: Never smoker Hx Alcohol Use: No Hx Substance Use: No Physical Exam Vital Signs Last Vital Signs Temp 37.3 C 07/06/20 21:13 Pulse 94 H 07/06/20 22:30 Resp 25 H 07/06/20 22:30 BP 124/82 07/06/20 22:30 Pulse Ox 100 07/06/20 22:30 Testing Laboratory Results 07/06/20 21:26 07/06/20 21: PT 12.2 Seconds (9.0-12.0) H 07/06/20 21: INR 1.2 (0.9-1.1) H 07/06/20 21: APTT 28.8 Seconds (21.0-31.0) 07/06/20 21:26 Electrocardiogram Date: 07/06/20 Findings: + NSR @ (at 87;LAE;? Lat. infarct;?infer. infarct) and + RBBB Echocardiogram Date: 06/25/20 LV Function: normal RWMA: + none Other Findings: + diastolic dysfunction (grade 1) Valvular Disease: + pertinent finding (no but slightly restricted leaflet motion 2ndary to calcification) sigmoid septum
[2020-07-06 22:58] LABS: Influenza A virus by PCR Negative (Neg); Influenza B virus by PCR Negative (Neg); RSV by PCR Negative (Neg); SARS CoV2 RNA(COVID-19) InHosp NEGATIVE (Negative)
[2020-07-06] MEDS ORDERED: fentaNYL citrate 100 MCG/2 ML VIAL ONE (22:58)
[2020-07-06] MEDS ORDERED: SODIUM CHLORIDE 0.9% 250 ML IV PRN (23:42)
[2020-07-07] MEDS ORDERED: PHENYLEPHRINE HCL 10 MG/ML VIAL ONE (00:27)
[2020-07-07] MEDS ORDERED: CISATRACURIUM BESYLATE IV SOLN 2 MG/ML 10 ML VIAL IV ONE (00:27)
[2020-07-07] MEDS ORDERED: PROPOFOL IV EMULSION 10 MG/ML 20 ML VIAL IV ONE (00:27)
[2020-07-07] MEDS ORDERED: ePHEDrine sulfate 50 MG/ML AMP IV PRN (01:48)
[2020-07-07] MEDS ORDERED: ATROPINE SULFATE 0.1 MG/ML 10ML SYR IV PRN (01:48)
[2020-07-07] MEDS ORDERED: fentaNYL citrate 100 MCG/2 ML VIAL IV PRN (01:48)
--- NOTE | 2020-07-07 01:53 | Anesthesiology Progress Note ---
Date of Service July 07, 2020 Anesthesia Post Procedure Vital Signs Vital Signs: Temp Pulse Resp BP BP Pulse Ox 07/06/20 22:50 85 24 128/70 95 07/06/20 22:47 91 H 24 98 07/06/20 22:46 91 H 24 135/79 98 07/06/20 22:45 90 24 99 07/06/20 22:41 79 24 97 07/06/20 22:40 82 21 99/78 L 95 07/06/20 22:35 89 24 122/78 98 07/06/20 22:30 94 H 25 H 124/82 100 07/06/20 22:26 93 H 13 131/99 96 07/06/20 22:25 92 H 24 100 07/06/20 22:20 86 24 126/86 99 07/06/20 22:15 88 24 115/69 100 07/06/20 22:10 92 H 24 106/68 98 07/06/20 22:05 102 H 24 07/06/20 22:01 103 H 25 H 91 07/06/20 22:00 105 H 25 H 50/42 L 92 07/06/20 21:55 102 H 24 98 07/06/20 21:51 88 34 H 98/60 L 90 07/06/20 21:50 87 35 H 91 07/06/20 21:45 86 31 H 62/44 L 91 07/06/20 21:40 86 29 H 61/48 L 88 L 07/06/20 21:35 87 32 H 58/45 L 92 07/06/20 21:32 85 31 H 67/45 L 93 07/06/20 21:31 70/40 L 07/06/20 21:30 89 27 H 94 07/06/20 21:25 82 27 H 93 07/06/20 21:21 86 27 H 64/47 L 93 07/06/20 21:20 84 26 H 91 07/06/20 21:19 24 89 L 07/06/20 21:15 86 26 H 76 L 07/06/20 21:13 37.3 C 87 20 82/40 L 64 L 07/06/20 21:10 74 14 63 L 07/06/20 21:05 86 24 Transfer of Care Handoff Completed per policy Notes Mental Status: see notes below Patient Amnestic to Procedure: Yes Nausea / Vomiting: adequately controlled Pain: adequately controlled Airway Patency, RR, SpO2: stable & adequate BP & HR: stable & adequate and see Notes below Hydration State: stable & adequate and see Notes below Notes: Pt was intubated in situ inER;Pt was sedated there;Pt had Levophed infusion running;pt is critical,but stable at this time.
--- NOTE | 2020-07-07 02:00 | Operative Report ---
PG Post Operative Report Pre & Post Diagnosis Operation Date: 07/06/20 23:00 Pre-Op Diagnosis: Perforated viscus Post-Op Diagnosis: Dislodged Gastrostomy tube I identified the patient and participated in the time-out.: Yes Procedure Operation Date: 07/06/20 23:00 Actual Procedures p Exploratory Laparotomy, Repair of Gastrostomy, Replacement of Gastrostomy. Tube, and Abdominal Washout. (Not Applicable) - Shola Damon DO Surgeon Shola Damon DO Shipyard Painter Helper n/a Estimated Blood Loss 10 Findings Consistent with Post-Op Diagnosis Specimens none Description of Procedure After informed consent was obtained the patient was brought to the operating room already intubated. An arterial line as well as a central venous line were placed by anesthesia. The entire abdomen and pelvis were sterilely prepped and draped with Betadine solution. His previous upper midline incision jonh were removed prior to prepping. I began by manually opening this incision. I cut the fascial sutures and remove them and used blunt finger penetration to enter the abdominal cavity. We immediately encountered a large amount of air as well as bilious fluid. I extended the incision superiorly and inferiorly using cautery. Once I did this I was able to evaluate the source of the fluid which was a dislodged gastrostomy tube. The balloon was still inflated however it had pulled through the anterior gastric wall. I deflated the balloon and remove the gastrostomy tube. I immediately suctioned out about 1000 cc of fluid primarily from the upper abdomen. Small bowel was dilated however appeared healthy consistent with an ileus. I examined all 4 quadrants as best I could considering his body habitus. I was able to look in the pelvis and the anastomosis appeared intact. There is no stool or succus. After irrigating the entire abdomen with some warm irrigation I then grasped the stomach with a Bhavin to better evaluate the issue. Everything was markedly inflamed. The the gastric serosa was quite thickened. Because of this I did not feel it would safely hold sutures or jonh to simply close the gastrostomy. I therefore brought in a 26 Tongan 30 cc balloon Ibanez catheter through his previous G-tube opening. I used 2-0 silk to create a pursestring widely around the existing gastrostomy opening. I then inserted the catheter and inflated the balloon to around 22 or 23 cc of fluid. I pulled traction on the catheter and it stayed in the lumen of the stomach. I then secured down the pursestring stitch. I then used some additional 2-0 silk and 3-0 silk to create a Witzel type tunnel using gastric serosa as well as omentum. Because of the tissue being so inflamed I could not safely suture it to the anterior abdominal wall without risk of the sutures pulling through. I pulled it as close as I safely could to the anterior abdominal wall and then continued to create my Witzel tunnel. Once this was completed I squeezed the stomach itself. There was no evidence of any leak around the gastrostomy tube. Thorough irrigation with multiple liters of warm irrigation was performed. A final look around the abdomen showed no other abnormalities. Two #19 Tongan Jac drains were placed 1 on each side of the midline incision. The right side was directed towards the right upper quadrant and the left side directed into the pelvis. They were secured to the skin using 2-0 nylon. I then closed the fascia using #1 PDS starting either pole and running them to the midline where I secured them together. Soft tissue was thoroughly irrigated and closed over top of 1/4 inch Isa drain using skin jonh. Silver dressing was applied. The patient was transferred to the intensive care unit intubated in critical condition. I attest to the content of the Intraoperative Record and any orders documented therein. Any exceptions are noted below.
[2020-07-07] MEDS ORDERED: PIPERACILL/TAZOBAC CONSULT ACTIVE PRN (02:29)
[2020-07-07] MEDS ORDERED: ICU PROTOCOL FOR HYPERGLYCEMIA PRN (02:33)
--- NOTE | 2020-07-07 02:41 | Critical Care Consultation ---
Date of Consultation July 07, 2020 Assessment & Plan (1) Admitted to intensive care unit: Reason Critically Ill: 79-year-old male status post exploratory laparotomy in the setting of free intraperitoneal air with replacement of gastric tube and drains requiring close hemodynamic monitoring in the setting of active extremities. NEURO - * CAM ICU: Unable to assess secondary to level of sedation. * Altered mental status: * Likely secondary to metabolic encephalopathy in the setting of severity of illness, sepsis, CO2 narcosis, etc. * Sedation: Versed/Fentanyl CARDIAC/VASCULAR - * Hypotension: * Secondary to severe sepsis with septic shock. * Received appropriate IV fluid resuscitation in the emergency department in OR. * Requiring Levophed at this time. * History of diastolic dysfunction with echocardiogram on 06/25 demonstrating the ventricular hypertrophy with an EF of 65 to 70%. * EKG: Sinus rhythm with first-degree AV block at 87 bpm. Right bundle sofía block. QTc 474 ms * Monitor on telemetry. RESPIRATORY - * Acute on chronic hypoxic respiratory failure with hypercapnia: * Likely secondary to increasing restrictive lung dysfunction in the setting of intraperitoneal free air with compression of lung volumes resulting in decreased ventilation and CO2 retention. * Patient required endotracheal intubation. * Wean ventilator settings as tolerated. * Trend ABGs. * Hope for improvement after decompression of abdominal viscera. GI/NUTRITION - * Perforated viscus: * Status post exploratory laparotomy with findings consistent of dislodgment of gastric tube. Replacement of gastric tube and washout as well as drain placement performed by general surgery. * Continue management per their recommendations. * Prophylaxis: Famotidine RENAL/LYTES - * LIZZ: * Continue with aggressive IV fluid resuscitation for likely gastric losses. * Hypokalemia: * In the setting of GI losses. * Continue to replace. * IVF: NSS at 200 mL's per hour. - * Ibanez in place - Strict I&Os. ENDO - * No h/o DM * BSGs per unit protocol. ISS --> gtt per unit policy. * Hypothyroidism: * Continue home Rx HEME - * Stable H&H * Monitor s/o abdominal intervention. ID - * Severe sepsis w/ septic shock 2/2 GI spillage * Covered w/ Zosyn. * Lactate trending down. * PCT elevated. * Cultures pending. LINES/IV ACCESS - * PIVs x2 * RIGHT IJ CVL * RIGHT Radial Art line * ET Tube * Surgical G tube * Ibanez * MAYELIN Drain x2 DVT PROPHYLAXIS - * Hold w/ recent abdominal surgery * SCDs I have personally spent 65 minutes of critical care time in the direct management of this patient. This is a life/limb threatening event. This includes time spent evaluating patient, direct bedside care, chart review, placing orders, interpretation of diagnostic studies, discussion with consultants, patient, and family members, as well as other required patient management activities. This time is exclusive of all separately billable procedures, and teaching time and separate from and in addition to any other critical care service time. Thank you for allowing us to participate in the care of this patient. Please refer to my attending physician's documentation for any further recommendations. (2) Perforated viscus: (3) Respiratory failure: (4) Sepsis: (5) Leukocytosis: History of Present Illness Attending Physician: Shola Damon, DO History of Present Illness Patient is a 79-year-old male with a significant past medical history of hypertension, hyperlipidemia, CHF, obstructive sleep apnea, obesity hypoventilatory syndrome, chronic respiratory failure with hypoxia, and COPD. Patient underwent sigmoid resection with gastric tube placement on 06/26 secondary to sigmoid volvulus. He was discharged from this institution had been doing well up until this evening. The patient became lethargic came with complaints of abdominal pain. He was unresponsive upon arriving in the emergency department. He was found to have a substantial amount of free air under his diaphragm. The patient was intubated and taken to the operating suite where he underwent exploratory laparotomy with findings of dislodgment of gastric tube. This was replaced and the abdominal cavity was washed out thor oughly. Patient was placed on Zosyn empirically. RIGHT IJ and RIGHT radial arterial line were placed by anesthesia intraoperatively. Patient is requiring Levophed. Upon arrival in the ICU, the patient is intubated and sedated. He is unable to contribute to history of present illness. Allergies Allergy/AdvReac Type Severity Reaction Status Date / Time No Known Allergies Allergy Verified 07/06/20 21:30 Home Medications Medication Instructions Recorded Confirmed Type amlodipine 5 mg tablet 5 mg PO QAM 11/20/18 06/13/20 History aspirin 81 mg tablet,delayed 81 mg PO QAM 11/20/18 06/13/20 History release simvastatin 20 mg tablet 20 mg PO HS tab 11/20/18 06/13/20 History bumetanide 1 mg tablet 1.5 mg PO BID tab 01/08/19 06/13/20 History cholecalciferol (vitamin D3) 25 1,000 units PO QAM 01/08/19 06/13/20 History mcg (1,000 unit) capsule colchicine 0.6 mg capsule 0.6 mg PO QAM 01/08/19 06/13/20 History CPAP Machine #1 ea 02/07/19 06/13/20 Rx Oxygen Home #1 ea 05/13/19 06/13/20 Rx calcium carbonate [Tums] 200 mg PO BID PRN 05/16/20 06/13/20 History levothyroxine 175 mcg PO DAILYBB 06/13/20 06/13/20 History colchicine [Colcrys] 0.6 mg PO BID 30 Days #60 tab 07/04/20 Rx pantoprazole 40 mg PO QAM 30 Days #30 tab 07/04/20 Rx tamsulosin [Flomax] 0.4 mg PO HS #30 cap 07/04/20 Rx L.acidop,nury,lac,rha-B.lac,taz 2 cap PO QAM 07/06/20 History [Advanced Probiotic] Patient History Medical History Acute kidney failure on 06/14/20 Anemia Dyslipidemia GERD (gastroesophageal reflux disease) HTN (hypertension) Hx of gout Hypothyroidism Leukocytosis Neuropathy Obesity On home oxygen therapy 4 LPM qHS Restrictive lung disease Sleep apnea BiPAP + O2 at 4 LPM Venous insufficiency Surgical History History of cataract surgery RT. 06/03/20. [facility]. 2mg versed, 50mcg fentanyl. no issues reported. History of colonoscopy S/P laparotomy (06/26/20) Laparoscopy converted to laparotomy, resection of descending sigmoid colon, partial rectal resection, gastrostomy - Hugo Ware MD, FACS Family History Father Hypertension Mother Lung cancer Aunt Diabetes Aunt Diabetes Other No family history of adverse response to anesthesia No significant family history Social History Smoking Status: Never smoker Second Hand Exposure: No; Hx Alcohol Use: No Hx Substance Use: No Preferred Language: Tuvaluan Communication Ability: Effective Visual Impairment: No Limitations Transfer And Pumphouse Operator Required: No Beliefs That Will Affect Care: None marital status: Current Living Situation: Spouse 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 GENERAL - 79-year-old male appearing his stated age who is acutely ill. SKIN - Multiple wounds to the upper extremities bilaterally. HEAD - NC/AT. EYES - EOMI bilaterally. Sclera anicteric. EARS - No deformities of external structures noted on gross examination bilaterally. NOSE - Midline and without cyanosis. No epistaxis or purulent drainage noted. MOUTH/OROPHARYNX - ET Tube in place. Without perioral cyanosis. NECK - Neck with FROM. Supple to palpation. No nuchal rigidity. LUNGS - Chest wall symmetric without accessory muscle use. Diminished breath sounds. No other adventitious breath sounds noted throughout. CARDIAC - RRR with S1/S2. No murmur, rubs, or gallops appreciated. ABDOMEN - Abdominal contour obese without pulsations or visible masses. Absent b owel sounds currently. Midline incision dressing clean, dry, and intact. G tube in place. Drains to the bilateral lower abdomen with pinkish serosanguineous drainage noted. EXTREMITIES - No clubbing or peripheral cyanosis. Pretibial edema present bilaterally. +3/5 radial and dorsalis pedis pulses palpated throughout. NEUROLOGIC - No focal neurological deficits noted. Limited exam 2/2 sedation/intubation. Results & Data Results & Data ([facility]) Vital Signs (Past 12 Hours) Vital Signs Temp Pulse Resp BP BP Pulse Ox 07/07/20 02:10 80 96 07/07/20 02:06 81 94/48 L 96 07/07/20 02:05 79 96 07/07/20 02:00 98 H 95 07/07/20 01:55 90 97 07/07/20 01:52 36.6 C 87 87/22 L 97 07/07/20 01:50 60 99 07/06/20 22:50 85 24 128/70 95 07/06/20 22:47 91 H 24 98 07/06/20 22:46 91 H 24 135/79 98 07/06/20 22:45 90 24 99 07/06/20 22:41 79 24 97 07/06/20 22:40 82 21 99/78 L 95 07/06/20 22:35 89 24 122/78 98 07/06/20 22:30 94 H 25 H 124/82 100 07/06/20 22:26 93 H 13 131/99 96 07/06/20 22:25 92 H 24 100 07/06/20 22:20 86 24 126/86 99 07/06/20 22:15 88 24 115/69 100 07/06/20 22:10 92 H 24 106/68 98 07/06/20 22:05 102 H 24 07/06/20 22:01 103 H 25 H 91 07/06/20 22:00 105 H 25 H 50/42 L 92 07/06/20 21:55 102 H 24 98 07/06/20 21:51 88 34 H 98/60 L 90 07/06/20 21:50 87 35 H 91 07/06/20 21:45 86 31 H 62/44 L 91 07/06/20 21:40 86 29 H 61/48 L 88 L 07/06/20 21:35 87 32 H 58/45 L 92 07/06/20 21:32 85 31 H 67/45 L 93 07/06/20 21:31 70/40 L 07/06/20 21:30 89 27 H 94 07/06/20 21:25 82 27 H 93 07/06/20 21:21 86 27 H 64/47 L 93 07/06/20 21:20 84 26 H 91 07/06/20 21:19 24 89 L 07/06/20 21:15 86 26 H 76 L 07/06/20 21:13 37.3 C 87 20 82/40 L 64 L 07/06/20 21:10 74 14 63 L 07/06/20 21:05 86 24 Coding Level of Care Code Critical Care 1st 30-74 mins Diagnoses Admitted to intensive care unit Z78.9 Perforated viscus R19.8 Respiratory failure J96.01; J96.02 Chronicity: acute Respiratory failure complication: hypoxia and hypercapnia Sepsis A41.9 Sepsis acute organ dysfunction status: unspecified Sepsis type: sepsis due to unspecified organism Leukocytosis D72.829 Time Spent (min) 65 (1) Respiratory failure Chronicity: acute Respiratory failure complication: hypoxia and hypercapnia Qualified Code(s): J96.01 - Acute respiratory failure with hypoxia; J96.02 - Acute respiratory failure with hypercapnia (2) Sepsis Sepsis acute organ dysfunction status: unspecified Sepsis type: sepsis due to unspecified organism Qualified Code(s): A41.9 - Sepsis, unspecified organism
[2020-07-07] MEDS ORDERED: STAT IV Infusion **Titration per Protocol STA (02:46)
[2020-07-07] MEDS ORDERED: MIDAZOLAM BOLUS FROM BAG IV PRN (02:46)
[2020-07-07 02:52] LABS: iSTAT Arterial Blood Gas HCO3 30 meg/L (19-24); iSTAT Arterial Blood Gas pCO2 42 mmHg (35-46); iSTAT Arterial Blood Gas pH 7.45 (7.35-7.45); iSTAT Arterial Blood Gas pO2 77 mmHg (80-95); iSTAT Carbon Dioxide 31 mmol/L (24-31)
[2020-07-07 03:01] LABS: Hematocrit (blood only) 31.5 % (42-52); Hemoglobin 10.2 g/dL (14.0-18.0); Mean Corpuscular Hemoglobin 29.5 pg (25-34); Mean Corpuscular Hgb Conc 32.4 g/dL (32-36); Mean Platelet Volume 8.9 fL (7.4-10.4); Nucleated RBC # (auto) 0.11 K/uL (0-0); Nucleated RBC % (auto) 0.5 %; Platelet Count 548 K/uL (130-400); RDW Coefficient of Variation 16.5 % (11.5-14.5); RDW Standard Deviation 54.1 fL (36.4-46.3); Red Blood Count 3.46 M/uL (4.7-6.1); White Blood Count 22.55 K/uL (4.8-10.8)
[2020-07-07 03:19] LABS: BUN Creatinine Ratio 22.4 (10-20); Calcium 7.4 mg/dl (8.5-10.1); Creatinine Clr Calc Pharmacy 67.3 ml/min; Est GFR (African American) 53.6; Est GFR (Non-African American) 46.3; Magnesium 1.5 mg/dl (1.8-2.4); Phosphorus 3.5 mg/dl (2.5-4.9); Potassium 2.7 mmol/L (3.5-5.1)
[2020-07-07 03:25] LABS: ALC (manual) 1.35 K/uL (1.2-3.4); ANC (manual) 17.88 K/uL (1.4-6.5); Eosinophils % (manual) 0.9 %; Lymphocytes # (manual) 1.35 K/uL (1.2-3.4); Metamyelocytes # (manual) 0.97 K/uL (0-0); Metamyelocytes % (manual) 4.3 %; Monocytes # (manual) 0.59 K/uL (0.11-0.59); Monocytes % (manual) 2.6 %; Myelocytes # (manual) 1.56 K/uL (0-0); Myelocytes % (manual) 6.9 %; Neutrophils # (manual) 17.88 K/uL (1.4-6.5); Neutrophils % (manual) 79.3 %
[2020-07-07] MEDS: fentaNYL DRIP 1,250 MCG/250 ML BAG IV SCH (03:31)
[2020-07-07] MEDS: SODIUM CHLORIDE 0.9% 1000ML 1,000 ML IV SCH ×3 (03:31→20:19)
[2020-07-07] MEDS: MIDAZOLAM HCL 125 MG/250 ML BAG IV SCH (03:32)
[2020-07-07] MEDS: NOREPINEPHRINE/D5W 8 MG/508 ML BAG IV SCH ×2 (03:33→07:59)
[2020-07-07] MEDS: PIPERACILLIN/TAZOBACTAM 4.5 GM in DEXTROSE 5% 100 ML IV SCH ×3 (03:50→20:22)
[2020-07-07] MEDS ORDERED: CALCIUM GLUCONATE 10% 1,000 MG in SODIUM CHLORIDE 0.9% 50 ML IV ONE (03:57)
[2020-07-07] MEDS: POTASSIUM CHLORIDE / WTR 20 MEQ/100 ML PLCT IV SCH ×6 (04:57→21:56)
[2020-07-07] MEDS: MAGNESIUM SULFATE / D5W 1 GM/100 ML BAG IV SCH ×2 (04:57→06:38)
[2020-07-07] MEDS: HEPARIN SOD 5,000 UNIT/0.5 ML VIAL SQ SCH ×3 (04:58→21:42)
[2020-07-07 05:54] LABS: Appearance Urine Slightly Cloudy (Clear); Bilirubin Urine Negative (Negative); Blood Urine 3+ (Negative); Color Urine Yellow; Glucose Urine UA Negative (Negative); Ketones Urine Negative (Negative); Leukocyte Esterase Urine 2+ (Negative); Nitrite Urine Positive (Negative); Protein Urine 2+ (Negative); Specific Gravity Urine 1.015 (1.000-1.030); Urobilinogen Urine Negative (Negative)
[2020-07-07 06:19] LABS: Bacteria Urine Negative (Negative); RBC Urine 0-4 /hpf (0-4); Renal Epithelial Cells Urine 0-5 /lpf (0-5); WBC Urine >30 /hpf (0-5)
--- NOTE | 2020-07-07 06:47 | XRay Report ---
XR chest 1V portable CLINICAL HISTORY: SEPSIS COMPARISON STUDY: 06/30/2020 FINDINGS: The heart is enlarged. There are increased perihilar markings consistent with pulmonary vas cular congestion. There is extensive pneumoperitoneum.[ IMPRESSION: 1. Extensive pneumoperitoneum 2. Pulmonary vascular congestion ACT 112: Negative or not required by law. Electronically signed by: Mike Thomas M.D. 07/07/2020 6:46 AM
--- NOTE | 2020-07-07 06:50 | XRay Report ---
XR chest 1V portable CLINICAL HISTORY: Respiratory failure COMPARISON STUDY: Earlier in the evening FINDINGS: The endotracheal tube has been placed and is positioned 45 mm above the jie. The heart i s enlarged. There are increased bilateral pulmonary markings likely secondary to congestive failure/f luid overload. Small pleural effusions are suspected. The previously described pneumoperitoneum is mo re difficult to visualize on the supine study.[There is nonspecific mediastinal widening. There is mo re focal atelectasis/consolidation at the right medial lung base. IMPRESSION: 1. Cardiomegaly and radiographic evidence of congestive failure/fluid overload 2. Endotracheal tube 45 mm above the jie 3. Nonspecific mediastinal widening 4. Suspect right medial basilar atelectasis/consolidation ACT 112: Negative or not required by law. Electronically signed by: Mike Thomas M.D. 07/07/2020 6:49 AM
--- NOTE | 2020-07-07 07:03 | XRay Report ---
XR chest 1V portable CLINICAL HISTORY: Right IJ Vein Central Line placement COMPARISON STUDY: 07/06/2020 FINDINGS: There is an endotracheal tube 38 mm above the jie. There is been interval placement of a right internal jugular central venous catheter. The tip projects over the superior vena cava. No pne umothorax is visualized. The heart is enlarged. There are bilateral pleural effusions with associated basilar atelectasis/consolidation. A catheter is visualized projected over the liver. This likely re presents a subdiaphragmatic drain. Correlation with prior surgical history recommended.[ IMPRESSION: 1. Interval placement of right internal jugular central venous catheter. The tip projects over the zaragoza perior vena cava. There is no pneumothorax 2. Endotracheal tube 38 mm above the jie 3. Cardiomegaly, bilateral pleural effusions, and bibasilar atelectasis/consolidation 4. A catheter projects over the liver, possibly representing a subdiaphragmatic drain. Clinical corre lation advocated ACT 112: Negative or not required by law. Electronically signed by: Mike Thomas M.D. 07/07/2020 7:01 AM
--- NOTE | 2020-07-07 08:04 | Communication Note ---
Date of Service: July 07, 2020 Patient seen and examined. Discussed with critical care nurse at bedside and on multidisciplinary rounds and discussed with overnight critical care CHE. Patient remains hemodynamically unstable on vasopressors, however they are being weaned. He appears neurologically intact. He is on the mechanical ventilator. Antibiotics have been initiated. Urine output is adequate. Electrolytes are being repleted. We will check random cortisol for relative adrenal insufficiency. Continue mechanical ventilation pending improvement in the patient's hemodynamics. We will follow culture data from his intraoperative cultures and tailor antibiotics based on response however empiric Zosyn appears to be adequate. We will trend white blood cell count and fever curve. Defer feeding to surgery. Lactate is improving. Continue supportive care at this point time. Prognosis guarded additional 35 minutes critical care time Coding Level of Care Code Critical Care deneen addt'l 30 min
[2020-07-07] MEDS: FAMOTIDINE 20 MG in SYRINGE 3 ML IV SCH ×2 (08:39→20:24)
--- NOTE | 2020-07-07 09:01 | Electrocardiogram Report ---
Test Reason : Blood Pressure : / mmHG Vent. Rate : 087 BPM Atrial Rate : 087 BPM P-R Int : 246 ms QRS Dur : 140 ms QT Int : 394 ms P-R-T Axes : 016 -24 014 degrees QTc Int : 474 ms Sinus rhythm with 1st degree A-V block Left atrial enlargement Right bundle branch block Abnormal ECG When compared with ECG of 25-JUN-2020 06:04, No significant change Confirmed by John Orozco ([id number]) on 07/07/2020 9:00:57 AM Referred By: REFERRED SELF Confirmed By:John Orozco
[2020-07-07 09:29] LABS: iSTAT Arterial Blood Gas HCO3 33 meg/L (19-24); iSTAT Arterial Blood Gas pCO2 83 mmHg (35-46); iSTAT Arterial Blood Gas pO2 45 mmHg (80-95); iSTAT Carbon Dioxide 35 mmol/L (24-31)
[2020-07-07 09:29] LABS: iSTAT Creatinine 1.8 mg/dl (0.6-1.3); iSTAT Hemoglobin 10.9 g/dl (14.0-18.0); iSTAT Ionized Calcium 1.07 mmol/l (1.12-1.32)
[2020-07-07 10:44] LABS: BUN Creatinine Ratio 21.7 (10-20); Calcium 7.5 mg/dl (8.5-10.1); Creatinine Clr Calc Pharmacy 64.6 ml/min; Phosphorus 2.5 mg/dl (2.5-4.9); Potassium 3.3 mmol/L (3.5-5.1)
[2020-07-07] MEDS ORDERED: CALCIUM CHLORIDE 10% 1,000 MG in SODIUM CHLORIDE 0.9% 50 ML IV ONE (10:45)
[2020-07-07] MEDS: ALBUMIN 25% 12.5 GM/50 ML VIAL IV SCH ×8 (11:22→20:20)
[2020-07-07] MEDS: MAX Conc 128mcg/mL; 32mg in 250mL IV SCH (11:23)
--- NOTE | 2020-07-07 11:51 | Surgery Progress Note ---
Date of Service July 07, 2020 Assessment & Plan (1) Perforated viscus: POD 1/2 from ex-lap d/w Dr. Damon.... if he does ok we can try a tube check with contrast wed or thur prior to initiating tube feeds continue supportive care. Admission and Anticipated Discharge Date Admission Date: July 07, 2020 Subjective pt remains intubated/on vent. still requiring levophed. Physical Exam Physical Exam: abd: dressings clean and dry MAYELIN's both serous G-tube putting out bilious fluid. Results & Data ([facility]) Vital Signs (Past 12 Hours) Vital Signs Temp Pulse Pulse Resp BP BP Pulse Ox 07/07/20 08:00 37.4 C 88 100/58 L 95 07/07/20 07:15 83 18 95 07/07/20 07:00 82 98/56 L 96 07/07/20 05:30 79 96 07/07/20 05:15 83 96 07/07/20 05:01 76 101/61 97 07/07/20 05:00 74 96 07/07/20 04:45 84 95 07/07/20 04:30 80 95 07/07/20 04:29 36.8 C 81 18 88/60 L 96 07/07/20 04:15 83 95 07/07/20 04:00 79 114/72 96 07/07/20 03:45 81 97 07/07/20 03:30 83 97 07/07/20 03:15 82 97 07/07/20 03:00 81 106/64 97 07/07/20 02:46 85 99/63 L 98 07/07/20 02:45 82 99 07/07/20 02:30 81 98 07/07/20 02:23 83 110/69 99 07/07/20 02:15 79 97 07/07/20 02:10 80 96 07/07/20 02:06 81 94/48 L 96 07/07/20 02:05 79 96 07/07/20 02:00 82 18 96 07/07/20 01:55 90 97 07/07/20 01:52 36.6 C 87 87/22 L 97 07/07/20 01:50 60 99 07/07/20 01:45 69 13 PG Care Time/CCT Total # of Minutes Spent Total Time Spent with Patient: Total time spent is greater than 50% in coordination of care (as documented) at patient's floor/unit and/or counseling patient: Coding Level of Care Code None Diagnoses Perforated viscus R19.8
[2020-07-07] MEDS ORDERED: PHARMACY GLYCEMIC MGMT CONSULT PRN (11:59)
[2020-07-07] MEDS ORDERED: CASPOFUNGIN 70 MG in SODIUM CHLORIDE 0.9% 250 ML IV STA (13:17)
--- NOTE | 2020-07-07 13:23 | Pharmacy Report ---
Pharmacy Glycemic Short Note 2 - Date of Service July 07, 2020 - Glycemic Short BSG Results (Last 24 hours): 07/06/20 07/06/20 07/07/20 21:26 21:28 02:48 Glucose 170 H 165 H POC Glucose (other) 175 H 07/07/20 09:57 Glucose 159 H POC Glucose (other) OUTPATIENT ANTIDIABETIC REGIMEN: * None * HbA1c ordered ASSESSMENT: * 79 yo M with perforated viscous s/p ex lap earlier today in ICU, vented, and on norepinephrine * BSG's >140 mg/dL x2 therefore ICU hyperglycemic protocol initiated * Will start on weight-based moderate stress estimate Novolog * Will initiate Lantus - 0.1 units/kg BID if BSG > 180 mg/dL PLAN FOR INPATIENT GLYCEMIC CONTROL: * Basal insulin * Lantus 10 units SQ BID (hold if BSG < 180 mg/dL) * Bolus insulin * NovoLog per scale ACHS or Q6hrs while NPO * Goal Range: Low 120 mg/dL - High 160 mg/dL * Correction Factor: 15 mg/dL/unit * Nutritional / Prandial insulin per carb ratio of 1 unit per 5 grams CHO consumed PLAN FOR DISCHARGE: * tbd
[2020-07-07] MEDS: INSULIN ASPART 100 UNITS/ML 3 ML PEN SC SCH ×3 (13:42→23:55)
[2020-07-07] MEDS: INSULIN GLARGINE SOLOSTAR 100 UNITS/ML 3 ML PEN SC SCH (17:56)
[2020-07-08] MEDS: fentaNYL DRIP 1,250 MCG/250 ML BAG IV SCH ×2 (00:43→20:49)
[2020-07-08] MEDS: ALBUMIN 25% 12.5 GM/50 ML VIAL IV SCH ×4 (01:21→03:58)
[2020-07-08] MEDS ORDERED: ALBUMIN 25% 12.5 GM/50 ML VIAL IV SCH (02:30)
[2020-07-08] MEDS: PIPERACILLIN/TAZOBACTAM 4.5 GM in DEXTROSE 5% 100 ML IV SCH ×3 (03:56→20:12)
[2020-07-08 04:26] LABS: iSTAT Arterial Blood Gas HCO3 26 meg/L (19-24); iSTAT Arterial Blood Gas pCO2 29 mmHg (35-46); iSTAT Arterial Blood Gas pH 7.56 (7.35-7.45); iSTAT Arterial Blood Gas pO2 68 mmHg (80-95); iSTAT Carbon Dioxide 26 mmol/L (24-31); iSTAT Hematocrit 22 % (42-52); iSTAT Hemoglobin 7.5 g/dl (14.0-18.0); iSTAT Potassium 2.8 mmol/L (3.3-5.0); iSTAT Sodium 140 mmol/L (135-144)
[2020-07-08 05:31] LABS: Basophils # (auto) 0.04 K/uL (0-0.2); Basophils % (auto) 0.2 %; Eosinophils # (auto) 0.48 K/uL (0-0.5); Eosinophils % (auto) 2.9 %; Hematocrit (blood only) 22.1 % (42-52); Hemoglobin 7.4 g/dL (14.0-18.0); Immature Granulocytes # (auto) 0.32 K/uL (0.00-0.02); Immature Granulocytes % (auto) 1.9 %; Lymphocytes # (auto) 1.26 K/uL (1.2-3.4); Lymphocytes % (auto) 7.5 %; Mean Corpuscular Hemoglobin 29.4 pg (25-34); Mean Corpuscular Hgb Conc 33.5 g/dL (32-36); Mean Corpuscular Volume 87.7 fL (80-100); Mean Platelet Volume 8.7 fL (7.4-10.4); Monocytes # (auto) 0.96 K/uL (0.11-0.59); Monocytes % (auto) 5.7 %; Neutrophils % (auto) 81.8 %; Platelet Count 435 K/uL (130-400); RDW Coefficient of Variation 16.8 % (11.5-14.5); Red Blood Count 2.52 M/uL (4.7-6.1); White Blood Count 16.76 K/uL (4.8-10.8)
[2020-07-08] MEDS: HEPARIN SOD 5,000 UNIT/0.5 ML VIAL SQ SCH ×2 (05:46→20:13)
[2020-07-08] MEDS: INSULIN ASPART 100 UNITS/ML 3 ML PEN SC SCH ×3 (05:48→18:11)
[2020-07-08] MEDS: INSULIN GLARGINE SOLOSTAR 100 UNITS/ML 3 ML PEN SC SCH ×2 (05:49→18:12)
[2020-07-08 05:55] LABS: Albumin Level 2.7 gm/dl (3.4-5.0); BUN Creatinine Ratio 24.1 (10-20); Bilirubin Direct 0.3 mg/dl (0-0.2); Calcium 7.5 mg/dl (8.5-10.1); Creatinine Clr Calc Pharmacy 81.6 ml/min; Est GFR (African American) 67.6; Est GFR (Non-African American) 58.3; Potassium 2.9 mmol/L (3.5-5.1)
[2020-07-08 05:56] LABS: Bilirubin,Total 0.7 mg/dl (0.2-1); Phosphorus 2.2 mg/dl (2.5-4.9); Total Protein 5.3 gm/dl (6.4-8.2)
[2020-07-08 06:32] LABS: Polychromasia 1+
[2020-07-08] MEDS ORDERED: POTASSIUM PHOS 3 MMOL/1 ML INFUSION IV STA (06:35)
[2020-07-08] MEDS: POTASSIUM CHLORIDE / WTR 20 MEQ/100 ML PLCT IV SCH ×3 (06:54→10:58)
[2020-07-08] MEDS ORDERED: POTASSIUM PHOSPHATE 15 MMOL in SODIUM CHLORIDE 0.9% 250 ML IV SCH (07:00)
--- NOTE | 2020-07-08 08:05 | Surgery Progress Note ---
Date of Service July 08, 2020 Assessment & Plan (1) Perforated viscus: POD 1 1/2 from ex-lap continue supportive care. as above. drains are serous. g-tube bilious continue supportive care will plan gastric tube check on ....if no extravasation can start slow tube feeds afternoon. Admission and Anticipated Discharge Date Admission Date: July 07, 2020 Subjective remains on vent & Levophed Physical Exam Gastrointestinal (Abdomen): Inspection/Auscultation: + abdominal surgical incision (dressing dry) and + abdominal surgical drain present (serous) Percussion/Palpation: abdomen soft gastric drainage 150 overnight Results & Data ([facility]) Vital Signs (Past 12 Hours) Vital Signs Temp Pulse Resp BP Pulse Ox 07/08/20 07:49 55 L 14 94 07/08/20 06:30 57 L 88 L 07/08/20 06:25 55 L 88 L 07/08/20 06:20 59 L 86 L 07/08/20 06:15 57 L 86 L 07/08/20 06:00 58 L 119/63 96 07/08/20 05:45 62 92 07/08/20 05:30 77 89 L 07/08/20 05:00 72 89/58 L 84 L 07/08/20 04:45 70 88 L 07/08/20 04:30 70 96 07/08/20 04:19 37.3 C 07/08/20 04:15 66 95 07/08/20 04:00 69 116/58 L 95 07/08/20 03:45 75 95 07/08/20 03:31 63 18 96 07/08/20 03:30 59 L 97 07/08/20 03:15 56 L 97 07/08/20 03:00 62 94/54 L 98 07/08/20 02:45 61 97 07/08/20 02:30 55 L 97 07/08/20 02:15 54 L 96 07/08/20 02:00 57 L 109/54 L 96 07/08/20 01:45 53 L 96 07/08/20 01:30 54 L 96 07/08/20 01:15 61 97 07/08/20 01:01 36.8 C 07/08/20 01:00 55 L 106/56 L 96 07/08/20 00:45 60 97 07/08/20 00:30 58 L 97 07/08/20 00:15 62 96 07/08/20 00:00 64 110/57 L 97 07/07/20 23:59 70 07/07/20 23:45 65 96 07/07/20 23:30 64 97 07/07/20 23:15 70 94 07/07/20 23:04 59 L 15 94 07/07/20 23:00 61 113/59 L 94 07/07/20 22:45 64 93 07/07/20 22:30 79 94 07/07/20 22:15 73 95 07/07/20 22:01 71 108/71 91 07/07/20 22:00 74 94 07/07/20 21:45 74 94 07/07/20 21:30 64 94 07/07/20 21:15 62 94 07/07/20 21:00 65 125/63 94 07/07/20 20:45 72 94 07/07/20 20:30 66 94 07/07/20 20:15 71 94 PG Care Time/CCT Total # of Minutes Spent Total Time Spent with Patient: Total time spent is greater than 50% in c oordination of care (as documented) at patient's floor/unit and/or counseling patient: Coding Level of Care Code None Diagnoses Perforated viscus R19.8
--- NOTE | 2020-07-08 08:17 | Critical Care Progress Note ---
Date of Service July 08, 2020 Assessment & Plan (1) Bowel perforation: (2) Septic shock: (3) Anemia: (4) Renal failure, acute: (5) Diastolic CHF, chronic: (6) Obesity hypoventilation syndrome: Impression: 79-year-old male status post exploratory laparotomy in the setting of free intraperitoneal air with replacement of gastric tube and drains requiring close hemodynamic monitoring in the setting of active extremities. 24 Hour events: Patient remains ventilator dependent. His pressors have been weaned. Urine output is picking up. He has had occasional ectopic beats but no sustained arrhythmias. His vent settings have been weaned significantly. Output from the MAYELIN drains has become more serous with decreasing output. Recommendations: NEURO - Currently sedated with Versed and fentanyl. Continue daily sedation break. Patient is not yet appropriate for ventilator weaning trials given his persistent septic shock. CARDIAC/VASCULAR - Severe sepsis with septic shock: The patient remains dependent on norepinephrine but the doses have been decreasing. His random cortisol was normal. He appears adequately volume resuscitated. Prior echocardiogram showed grade 1 diastolic dysfunction. Ideally would like to initiate diuretics especially given his fluid balance of +5 L but the patient remains on vasoactive medications so this may be problematic. We may be able to improve his position on the Starling curve with some gentle diuresis. Patient has demonstrated intermittent bradycardia which may be secondary to medications. Follow closely. RESPIRATORY - Weaning vent settings. The patient has a history of obesity hypoventilation and is on BiPAP normally. Once his hemodynamics tighten up, may consider SBT. We will plan to extubate to BiPAP. X-ray appears slightly more congested today. Respiratory alkalosis on blood gas. Will back tidal volume down to 500 and maintain respiratory rate of 14. PEEP is currently at 5 with an FiO2 of 0.4. Plateau pressures and static and dynamic compliance are adequate. GI/NUTRITION - Peritonitis secondary to dislodgment of G-tube. Surgically corrected. Di scussed with surgery yesterday. We will plan on doing injection of contrast through the G-tube in the next 24 to 48 hours to evaluate for continuity of surgical repair prior to initiating of tube feeds. Is a think we will be able to initiate tube feedings in the next day or 2 we will hold off on TPN or PPN for now given the infectious complication risk. RENAL/LYTES - Acute renal failure: Serum creatinine in today. Continues to demonstrate hypokalemia. Electrolytes will continue to be repleted. Acid-base status demonstrates respiratory alkalosis. See comments above. Calcium will be rep leted as well. - Ibanez in place - Strict I&Os. ENDO - Glycemic control per ICU protocol. Continue home Synthroid when oral medications can safely be restarted. HEME - Decrease in hemoglobin and hematocrit overnight. No evidence of ongoing bleeding. Unclear source of blood loss. The drop appears to be out of proportion for what could be explained by IV fluids. Given his need for continued vasopressor medications and potential improvement with colloid infusion, will transfuse 1 unit of packed cells today and follow posttransfusion hematocrit. ID - Gram-negative rods in urine, speciation pending. Intra-abdominal cultures pending. Day #2 Zosyn and Cancidas. Continue antibiotics for now. White count decreased to 16,000 from 22,000 today. LINES/IV ACCESS - PIVs x2 RIGHT IJ CVL RIGHT Radial Art line ET Tube Surgical G tube Ibanez MAYELIN Drain x2 DVT PROPHYLAXIS - Hold w/ recent abdominal surgery SCDs I have personally spent 65 minutes of critical care time in the direct manageme nt of this patient. This is a life/limb threatening event. This includes time spent evaluating patient, direct bedside care, chart review, placing orders, interpretation of diagnostic studies, discussion with consultants, patient, and family members, as well as other required patient management activities. This time is exclusive of all separately billable procedures, and teaching time and separate from and in addition to any other critical care service time. Admission and Anticipated Discharge Date Admission Date: July 07, 2020 Subjective intubated and sedated Review of Systems Review of Systems: Unobtainable due to endotracheal tube Physical Exam Constitutional: Patient unresponsive and intubated Eyes: PERRL, conjunctivae normal, anicteric sclerae EOM intact bilaterally ENMT: external ear and nose normal, oropharynx normal Ears: no hearing impairment Neck: trachea midline, no thyromegaly Respiratory: normal respiratory effort Cardiovascular: Rate/Rhythm: regular rate and regular rhythm Heart Sounds: normal S1 and normal S2; no murmur Extremities: + edema Gastrointestinal (Abdomen): Obese. His previous incisions are well-healed with no dehiscence and no sign of infection or drainage. Gastrostomy tube in place. Skin: Several areas of skin breakdown and ecchymosis of the upper extremities. Psychiatric: Orientation: alert, oriented x 3 and cooperative Results & Data Results & Data ([facility]) Vital Signs (Past 12 Hours) Vital Signs Temp Pulse Resp BP Pulse Ox 07/08/20 07:49 55 L 14 94 07/08/20 06:30 57 L 88 L 07/08/20 06:25 55 L 88 L 07/08/20 06:20 59 L 86 L 07/08/20 06:15 57 L 86 L 07/08/20 06:00 58 L 119/63 96 07/08/20 05:45 62 92 07/08/20 05:30 77 89 L 07/08/20 05:00 72 89/58 L 84 L 07/08/20 04:45 70 88 L 07/08/20 04:30 70 96 07/08/20 04:19 37.3 C 07/08/20 04:15 66 95 07/08/20 04:00 69 116/58 L 95 07/08/20 03:45 75 95 07/08/20 03:31 63 18 96 07/08/20 03:30 59 L 97 07/08/20 03:15 56 L 97 07/08/20 03:00 62 94/54 L 98 07/08/20 02:45 61 97 07/08/20 02:30 55 L 97 07/08/20 02:15 54 L 96 07/08/20 02:00 57 L 109/54 L 96 07/08/20 01:45 53 L 96 07/08/20 01:30 54 L 96 07/08/20 01:15 61 97 07/08/20 01:01 36.8 C 07/08/20 01:00 55 L 106/56 L 96 07/08/20 00:45 60 97 07/08/20 00:30 58 L 97 07/08/20 00:15 62 96 07/08/20 00:00 64 110/57 L 97 07/07/20 23:59 70 07/07/20 23:45 65 96 07/07/20 23:30 64 97 07/07/20 23:15 70 94 07/07/20 23:04 59 L 15 94 07/07/20 23:00 61 113/59 L 94 07/07/20 22:45 64 93 07/07/20 22:30 79 94 07/07/20 22:15 73 95 05/03/21 22:01 71 108/71 91 07/07/20 22:00 74 94 07/07/20 21:45 74 94 07/07/20 21:30 64 94 07/07/20 21:15 62 94 07/07/20 21:00 65 125/63 94 07/07/20 20:45 72 94 07/07/20 20:30 66 94 07/07/20 20:15 71 94 I/O: +[id number] Cumulative +[id number] Laboratory Results 07/08/20 05:13 07/08/20 05:13 Urine Cx, GNR, speciation pending Diagnostic Findings Chest x-ray from this morning was independently reviewed. Endotracheal tube is in good position. Central line appropriately placed. There are hazy bibasilar opacities with low lung volumes. Cannot exclude small pleural effusions. Compared to film yesterday, appears to be more potential interstitial edema and coarsening of lung markings Coding Level of Care Code Critical Care 1st 30-74 mins Diagnoses Bowel perforation K63.1 Septic shock A41.9; R65.21 Anemia D64.9 Renal failure, acute N17.9 Diastolic CHF, chronic I50.32 Obesity hypoventilation syndrome E66.2 Time Spent (min) 65
--- NOTE | 2020-07-08 08:21 | XRay Report ---
XR chest 1V portable HISTORY: 79 years-old Male f/u acute respiratory failure COMPARISON: Chest radiograph 07/07/2020 TECHNIQUE: AP view the chest FINDINGS: Cardiac silhouette is enlarged. Endotracheal tube overlies the midline, 3.3 cm superior to the jie . Right IJ central venous catheter distal tip projects over the inferior aspect of the SVC. Pulmonary vascular congestion with interstitial opacities have progressed in the interval. Right greater than left layering pleural effusions and progressed bibasilar densities. A chest tube is again noted proje cting over the right lung base. Degenerative changes of the shoulders and spine. IMPRESSION: 1. Lines and tubes as above. 2. Cardiomegaly with progressive pulmonary edema. 3. Layering pleural effusions with worsened bibasilar opacities suggestive of atelectasis. A superimp osed pneumonitis considered less likely. ACT 112: Negative or not required by law. The above report was generated using voice recognition software. It may contain grammatical, syntax o r spelling errors. Electronically signed by: Michael Macias M.D. 07/08/2020 8:19 AM
[2020-07-08] MEDS ORDERED: SODIUM PHOSPHATE 3 MMOL/1 ML INFUSION IV STA (08:32)
[2020-07-08] MEDS ORDERED: POTASSIUM CHLORIDE / WTR 20 MEQ/100 ML PLCT IV STA (08:32)
[2020-07-08] MEDS ORDERED: SODIUM CHLORIDE 0.9% 250 ML IV PRN (08:32)
[2020-07-08] MEDS: MAX Conc 128mcg/mL; 32mg in 250mL IV SCH (08:33)
[2020-07-08] MEDS: SODIUM CHLORIDE 0.9% 1000ML 1,000 ML IV SCH (08:35)
[2020-07-08 08:37] LABS: Estimated Average Glucose 123 mg/dl; Hemoglobin A1C 5.9 % (4.5-5.6)
[2020-07-08] MEDS: FAMOTIDINE 20 MG in SYRINGE 3 ML IV SCH ×2 (08:37→20:12)
[2020-07-08] MEDS: CASPOFUNGIN 50 MG in SODIUM CHLORIDE 0.9% 250 ML IV SCH (08:37)
[2020-07-08] MEDS ORDERED: FUROSEMIDE 40 MG in SYRINGE 0 ML IV ONE (09:15)
[2020-07-08] MEDS ORDERED: CALCIUM CHLORIDE 10% 1,000 MG in SODIUM CHLORIDE 0.9% 50 ML IV ONE (09:30)
[2020-07-08] MEDS ORDERED: STAT IV Infusion **Titration per Protocol STA (09:31)
[2020-07-08 12:39] LABS: Hematocrit (blood only) 26.7 % (42-52); Hemoglobin 8.9 g/dL (14.0-18.0)
[2020-07-08] MEDS ORDERED: VANCOMYCIN CONSULT ACTIVE PRN (15:29)
[2020-07-08] MEDS ORDERED: VANCOMYCIN HCL 2,750 MG in SODIUM CHLORIDE 0.9% 500 ML IV STA (15:45)
[2020-07-08] MEDS ORDERED: ROCURONIUM BROMIDE 10 MG/ML 5 ML VIAL IV ONE ×2 (18:42→18:43)
[2020-07-08] MEDS ORDERED: ETOMIDATE 2 MG/ML 20 ML VIAL IV ONE (18:43)
[2020-07-08 19:56] LABS: iSTAT Arterial Blood Gas HCO3 28 meg/L (19-24); iSTAT Arterial Blood Gas pCO2 57 mmHg (35-46); iSTAT Arterial Blood Gas pH 7.31 (7.35-7.45); iSTAT Arterial Blood Gas pO2 120 mmHg (80-95); iSTAT Carbon Dioxide 30 mmol/L (24-31)
[2020-07-09 00:28] LABS: Hematocrit (blood only) 28.1 % (42-52); Hemoglobin 9.4 g/dL (14.0-18.0)
[2020-07-09] MEDS: INSULIN ASPART 100 UNITS/ML 3 ML PEN SC SCH ×4 (00:41→18:53)
[2020-07-09] MEDS ORDERED: CALCIUM CHLORIDE 10% 1,000 MG in SODIUM CHLORIDE 0.9% 50 ML IV STA (00:45)
[2020-07-09 00:47] LABS: BUN Creatinine Ratio 23.8 (10-20); Creatinine Clr Calc Pharmacy 102.8 ml/min; Est GFR (African American) 91.4; Est GFR (Non-African American) 78.8; Magnesium 1.9 mg/dl (1.8-2.4); Potassium 3.1 mmol/L (3.5-5.1)
[2020-07-09 00:53] LABS: Phosphorus 3.3 mg/dl (2.5-4.9)
[2020-07-09] MEDS ORDERED: STAT IV Infusion **Titration per Protocol STA (00:58)
[2020-07-09] MEDS: POTASSIUM CHLORIDE / WTR 20 MEQ/100 ML PLCT IV SCH ×4 (01:12→07:10)
[2020-07-09] MEDS: SODIUM CHLORIDE 0.9% 1000ML 1,000 ML IV SCH ×2 (01:14→17:50)
[2020-07-09] MEDS ORDERED: ATROPINE SULFATE 0.1 MG/ML 10ML SYR IV STA (02:54)
[2020-07-09] MEDS: DOPamine / D5W 400 MG/250 ML BAG IV SCH ×5 (02:59→23:33)
[2020-07-09] MEDS: PIPERACILLIN/TAZOBACTAM 4.5 GM in DEXTROSE 5% 100 ML IV SCH (03:38)
[2020-07-09 04:12] LABS: iSTAT Arterial Blood Gas HCO3 31 meg/L (19-24); iSTAT Arterial Blood Gas pCO2 50 mmHg (35-46); iSTAT Arterial Blood Gas pO2 146 mmHg (80-95); iSTAT Carbon Dioxide 32 mmol/L (24-31); iSTAT Hematocrit 31 % (42-52); iSTAT Hemoglobin 10.5 g/dl (14.0-18.0); iSTAT Potassium 3.9 mmol/L (3.3-5.0); iSTAT Sodium 144 mmol/L (135-144)
[2020-07-09] MEDS ORDERED: ATROPINE SULFATE 0.1 MG/ML 10ML SYR IV ONE (04:39)
--- NOTE | 2020-07-09 04:55 | Communication Note ---
Date of Service: July 09, 2020 Patient with prolonged periods of bradycardia in the 30s. Patient baseline was in the 40s to 50s consistently throughout the night with normal blood pressures. Patient did appear to develop wadding complex when he became bradycardic which was concerning on monitor. Orders were placed for calcium chloride followed by dopamine if there was no response. Patient remained bradycardic after calcium chloride. Dopamine was started at 2.5 mg for bradycardia. Later in the evening, the patient developed bradycardia followed by significant ectopy and hypertension. The dopamine was held and Levophed was titrated down. Blood gas was obtained and reviewed at bedside which appeared well for the patient. Repeat morning labs were obtained. While performing a procedure on a separate patient in the ICU, I did receive word that the patient had bradycardia into the 30s with significant ectopy. Verbal orders to give 0.5 mg IV atropine again which did bring the patient's heart rate into the 80s. On reevaluation at bedside, discussion with nursing staff as had. Dopamine started at 1 mg and Levophed used to titrate for blood pressure support. Clinical coordinator was present and had spoken to the patient's daughter who is a nurse at this facility. She asked that I reach out to her. At 0453, I did speak with the patient's daughter, Soniya, regarding new events overnight. She had several questions which were answered to the best of my ability. We did discussed CODE STATUS in the event that he were to become asystolic or fatal dysrhythmia. At this point, she is adamant that she would not wish to have her father undergo chest compressions. She is fine with cardioversion and transcutaneous pacing temporarily. I did offer to reach out to cardiology as I am concerned that the patient is likely not a candidate for transvenous and/or permanent pacemaker secondary to his current bacteremia and associated fungating as well. She is comfortable with this and we will continue with current plan at this time. 0522: Spoke with Dr. Rahman regarding patient and events overnight. At this point, he suggest ongoing medical management with current plan. He feels that the patient is likely not a candidate for transvenous pacing as well. We will continue with current management at this point. Consult placed for patient cardiology for this morning. I have personally spent 55 minutes of critical care time in the direct management of this patient. This is a life/limb threatening event. This includes time spent evaluating patient, direct bedside care, chart review, placing orders, interpretation of diagnostic studies, discussion with consultants, patient, and family members, as well as other required patient management activities. This time is exclusive of all separately billable procedures, and teaching time and separate from and in addition to any other critical care service time. Coding Level of Care Code Critical Care 1st 30-74 mins Time Spent (min) 55
[2020-07-09 05:18] LABS: Hemoglobin 9.3 g/dL (14.0-18.0); Mean Corpuscular Hemoglobin 29.5 pg (25-34); Mean Corpuscular Hgb Conc 33.2 g/dL (32-36); Mean Corpuscular Volume 88.9 fL (80-100); Mean Platelet Volume 8.5 fL (7.4-10.4); Platelet Count 410 K/uL (130-400); RDW Coefficient of Variation 17.1 % (11.5-14.5); RDW Standard Deviation 54.8 fL (36.4-46.3); Red Blood Count 3.15 M/uL (4.7-6.1)
[2020-07-09 05:41] LABS: ALC (manual) 0.61 K/uL (1.2-3.4); ANC (manual) 15.82 K/uL (1.4-6.5); Eosinophils # (manual) 0.46 K/uL (0-0.5); Eosinophils % (manual) 2.6 %; Lymphocytes # (manual) 0.61 K/uL (1.2-3.4); Lymphocytes % (manual) 3.5 %; Monocytes # (manual) 0.61 K/uL (0.11-0.59); Monocytes % (manual) 3.5 %; Neutrophils # (manual) 15.82 K/uL (1.4-6.5); Neutrophils % (manual) 90.4 %; RBC Morphology Unremarkable
[2020-07-09 05:50] LABS: Albumin Level 2.3 gm/dl (3.4-5.0); BUN Creatinine Ratio 24.4 (10-20); Bilirubin Direct 0.3 mg/dl (0-0.2); Calcium 7.9 mg/dl (8.5-10.1); Creatinine Clr Calc Pharmacy 108.7 ml/min; Est GFR (African American) 95.1; Est GFR (Non-African American) 82.1; Magnesium 1.9 mg/dl (1.8-2.4); Potassium 3.5 mmol/L (3.5-5.1)
[2020-07-09 05:52] LABS: Bilirubin,Total 0.6 mg/dl (0.2-1); Phosphorus 3.2 mg/dl (2.5-4.9); Total Protein 5.1 gm/dl (6.4-8.2)
[2020-07-09] MEDS: INSULIN GLARGINE SOLOSTAR 100 UNITS/ML 3 ML PEN SC SCH (05:52)
[2020-07-09] MEDS ORDERED: VANCOMYCIN HCL 1,250 MG in SODIUM CHLORIDE 0.9% 250 ML IV SCH (06:00)
--- NOTE | 2020-07-09 08:06 | XRay Report ---
XR chest 1V portable CLINICAL HISTORY: f/u COMPARISON STUDY: Chest radiograph July 08, 2020. FINDINGS: Tip of endotracheal tube is 3.6 cm above the jie. Right internal jugular central line re ruth in place. Lung volumes are diminished. Persistent bibasilar airspace opacities are noted. Inter stitial thickening is again noted. Cardiomediastinal silhouette is stable. There is no pneumothorax. There are suspected small bilateral pleural effusions. IMPRESSION: 1. Tip of endotracheal tube 3.6 cm above the jie. 2. Low lung volumes with bibasilar opacities which could reflect consolidation or atelectasis. 3. Persistent pulmonary edema. ACT 112: Negative or not required by law. Electronically signed by: Octavio Castanon M.D. 07/09/2020 8:05 AM
[2020-07-09] MEDS: CASPOFUNGIN 50 MG in SODIUM CHLORIDE 0.9% 250 ML IV SCH (08:12)
[2020-07-09] MEDS: FAMOTIDINE 20 MG in SYRINGE 3 ML IV SCH ×2 (08:14→21:15)
[2020-07-09] MEDS: HEPARIN SOD 5,000 UNIT/0.5 ML VIAL SQ SCH ×2 (08:14→21:14)
[2020-07-09] MEDS: MAX Conc 128mcg/mL; 32mg in 250mL IV SCH (08:28)
--- NOTE | 2020-07-09 09:01 | Surgery Progress Note ---
Date of Service July 09, 2020 Assessment & Plan (1) Perforated viscus: condition continues to be guarded. now on levophed and dopamine will see how he does over next 24 hours before we consider g-tube contrast study continue supportive care nothing further to add from surgical perspective. Admission and Anticipated Discharge Date Admission Date: July 07, 2020 Subjective pt sedated on vent. opens eyes to stimuli. Physical Exam Physical Exam: sedated on vent abd: soft. incisions look good. . both drains lida/serous G-tube: bilious Results & Data ([facility]) Vital Signs (Past 12 Hours) Vital Signs Temp Pulse Resp BP Pulse Ox 07/09/20 06:53 36.5 C 07/09/20 06:45 77 93 07/09/20 06:30 79 94 07/09/20 06:15 87 94 07/09/20 06:01 93 H 103/59 L 95 07/09/20 06:00 93 H 87 L 07/09/20 05:45 36.1 C L 85 94 07/09/20 05:30 36.1 C L 69 97 07/09/20 05:25 36.1 C L 56 L 97 07/09/20 05:20 36.2 C L 60 97 07/09/20 05:18 36.2 C L 61 162/87 H 94 07/09/20 05:15 36.2 C L 55 L 97 07/09/20 05:10 36.2 C L 79 97 07/09/20 05:05 36.2 C L 80 96 07/09/20 05:00 36.2 C L 84 102/62 96 07/09/20 04:55 36.2 C L 89 95 07/09/20 04:50 36.2 C L 91 H 94 07/09/20 04:45 36.3 C L 80 97 07/09/20 04:44 36.3 C L 83 97 07/09/20 04:40 36.3 C L 44 L 97 07/09/20 04:38 36.3 C L 42 L 98 07/09/20 04:30 36.3 C L 78 96 07/09/20 04:15 36.3 C L 74 94 07/09/20 04:00 36.2 C L 105 H 114/76 07/09/20 03:49 85 18 93 07/09/20 03:45 36.2 C L 118 H 90 07/09/20 03:30 36.3 C L 94 H 92 07/09/20 03:25 36.3 C L 88 94 07/09/20 03:24 36.3 C L 94 H 139/71 93 07/09/20 03:20 36.3 C L 106 H 95 07/09/20 03:19 36.3 C L 104 H 71/43 L 07/09/20 03:16 36.3 C L 103 H 74/44 L 94 07/09/20 03:15 36.3 C L 103 H 94 07/09/20 03:10 36.3 C L 87 95 07/09/20 03:05 36.3 C L 56 L 95 07/09/20 03:02 36.3 C L 48 L 136/64 95 07/09/20 03:00 36.3 C L 43 L 100 07/09/20 02:55 36.3 C L 38 L 100 07/09/20 02:50 36.3 C L 39 L 100 07/09/20 02:45 36.3 C L 42 L 99 07/09/20 02:40 36.3 C L 42 L 99 07/09/20 02:35 36.3 C L 51 L 99 07/09/20 02:30 36.3 C L 43 L 99 07/09/20 02:25 36.3 C L 47 L 99 07/09/20 02:20 36.3 C L 48 L 99 07/09/20 02:15 36.3 C L 41 L 99 07/09/20 02:10 36.3 C L 41 L 99 07/09/20 02:05 36.3 C L 47 L 99 07/09/20 02:00 36.3 C L 40 L 100/55 L 100 07/09/20 01:55 36.3 C L 47 L 99 07/09/20 01:50 36.3 C L 55 L 99 07/09/20 01:45 36.3 C L 43 L 99 07/09/20 01:40 36.3 C L 44 L 99 07/09/20 01:35 36.3 C L 42 L 98 07/09/20 01:30 36.3 C L 45 L 99 07/09/20 01:25 36.3 C L 40 L 99 07/09/20 01:20 36.3 C L 42 L 98 07/09/20 01:15 36.3 C L 41 L 97 07/09/20 01:03 42 L 07/09/20 01:00 36.3 C L 42 L 116/57 L 99 07/09/20 00:58 36.2 C L 42 L 116/58 L 99 07/09/20 00:45 36.2 C L 45 L 97 07/09/20 00:30 36.2 C L 62 97 07/09/20 00:26 36.3 C L 77 77/52 L 99 07/09/20 00:20 36.2 C L 70 172/141 H 96 07/09/20 00:15 36.2 C L 67 95 07/09/20 00:05 36.2 C L 45 L 154/76 H 100 07/09/20 00:03 51 L 07/09/20 00:00 36.2 C L 45 L 96 07/08/20 23:45 36.2 C L 44 L 100 07/08/20 23:30 36.2 C L 46 L 100 07/08/20 23:27 49 L 14 100 07/08/20 23:15 36.2 C L 58 L 98 07/08/20 23:00 36.2 C L 46 L 99/58 L 100 07/08/20 22:45 36.2 C L 47 L 100 07/08/20 22:30 36.2 C L 52 L 100 07/08/20 22:15 36.2 C L 51 L 99 07/08/20 22:01 36.2 C L 56 L 112/49 L 100 07/08/20 22:00 36.2 C L 50 L 07/08/20 21:45 36.2 C L 51 L 98 07/08/20 21:30 36.2 C L 49 L 99 07/08/20 21:15 36.2 C L 45 L 98 07/08/20 21:00 36.2 C L 46 L 130/61 99 PG Care Time/CCT Total # of Minutes Spent Total Time Spent with Patient: Total time spent is greater than 50% in c oordination of care (as documented) at patient's floor/unit and/or counseling patient: Coding Level of Care Code None Diagnoses Perforated viscus R19.8
--- NOTE | 2020-07-09 09:06 | Critical Care Progress Note ---
Date of Service July 09, 2020 Assessment & Plan (1) Bowel perforation: (2) Septic shock: (3) Anemia: (4) Renal failure, acute: (5) Diastolic CHF, chronic: (6) Obesity hypoventilation syndrome: Impression: 79-year-old male status post exploratory laparotomy in the setting of free intraperitoneal air with replacement of gastric tube and drains requiring close hemodynamic monitoring in the setting of active extremities. 24 Hour events: Patient had occasional episodes of bradycardia/junctional rhythm overnight requiring atropine. Eventually dopamine was added in addition to the patient's Levophed. His blood cultures are positive for yeast and Gram stain of the peritoneal fluid are showing yeast as well as GPC's. ID consult from [facility] was requested but is not yet been completed Recommendations: NEURO - Currently sedated with Versed and fentanyl. Continue daily sedation break. Patient is not yet appropriate for ventilator weaning trials given his persistent septic shock. CARDIAC/VASCULAR - Severe sepsis with septic shock: The patient remains dependent on norepinephrine. He had a few junctional episodes and bradycardia and cardiology consultation was obtained. Will use as needed atropine. Echocardiogram is pending. We will try and increase his dopamine and wean off the Levophed as tolerated. His random cortisol was normal. He appears adequately volume resuscitated and we attempted diuresis yesterday and were able to keep his intake and output even. Prior echocardiogram showed grade 1 diastolic dysfunction. Follow-up echocardiogram is pending given his blood cultures positive for fungus. We will pursue additional gentle diuresis today RESPIRATORY - Stable vent settings AC/14/500/6/0.4. The patient has a history of obesity hypoventilation and is on BiPAP normally. Once his hemodynamics tighten up, may consider SBT. We will plan to extubate to BiPAP. X-ray appears slightly more congested today. Respiratory alkalosis on blood gas. Will back tidal volume down to 500 and maintain respiratory rate of 14. PEEP is currently at 5 with an FiO2 of 0.4. Plateau pressures and static and dynamic compliance are adequate. GI/NUTRITION - Peritonitis secondary to dislodgment of G-tube. Surgically corrected. We will plan on doing injection of contrast through the G-tube in the next 24 to 48 hours to evaluate for continuity of surgical repair prior to initiating of tube feeds. Given the patient's fungal bloodstream infection, is not a candidate for PPN or TPN RENAL/LYTES - Acute renal failure: Serum creatinine in today. Continues to demonstrate hypokalemia. Electrolytes will continue to be repleted. Acid-base status stable. - Ibanez in place - Strict I&Os. ENDO - Glycemic control per ICU protocol. Continue home Synthroid when oral medications can safely be restarted. HEME - Decrease in hemoglobin and hematocrit overnight. No evidence of ongoing bleeding. Unclear source of blood loss. The drop appears to be out of proportion for what could be explained by IV fluids. Given his need for continued vasopressor medications and potential improvement with colloid infusion, will transfuse 1 unit of packed cells today and follow posttransfusion hematocrit. ID - ID consultation from [facility] pending. Resistant gram-negative colette in the urine and blood cultures positive for fungus with Gram stain from the intra- abdominal drains showing fungus and GPC's, no growth from the intraperitoneal fluid however these cultures were obtained with the patient already on antibiotics. Day #3 Zosyn and Cancidas. We will discontinue Zosyn and place on meropenem given the E. coli sensitivity. Continue caspofungin for now. No evidence of hepatosplenic colonization. Will discuss with ophthalmology for endophthalmitis evaluation. Repeat cultures today including fungal isolates. Follow-up with echocardiogram to exclude perivalvular abscess or seeding. Will need lines changed at some point. Would like to see cultures negative before replacing lines. LINES/IV ACCESS - PIVs x2 RIGHT IJ CVL RIGHT Radial Art line ET Tube Surgical G tube Ibanez MAYELIN Drain x2 DVT PROPHYLAXIS - Hold w/ recent abdominal surgery SCDs I have personally spent 48 minutes of critical care time in the direct management of this patient. This is a life/limb threatening event. This includes time spent evaluating patient, direct bedside care, chart review, placing orders, interpretation of diagnostic studies, discussion with consultants, patient, and family members, as well as other required patient management activities. This time is exclusive of all separately billable procedures, and teaching time and separate from and in addition to any other critical care service time. Admission and Anticipated Discharge Date Admission Date: July 07, 2020 Subjective Intubated and sedated Review of Systems Review of Systems: Unobtainable due to endotracheal tube Physical Exam Eyes: PERRL, conjunctivae normal, anicteric sclerae EOM intact bilaterally ENMT: external ear and nose normal, oropharynx normal Ears: no hearing impairment Neck: trachea midline, no thyromegaly Respiratory: normal respiratory effort Cardiovascular: Rate/Rhythm: regular rate and regular rhythm Heart Sounds: normal S1 and normal S2; no murmur Extremities: + edema Gastrointestinal (Abdomen): Incisions clean dry intact. MAYELIN drains with serous drainage. Psychiatric: Intubated and sedated Results & Data Results & Data ([facility]) Vital Signs (Past 12 Hours) Vital Signs Temp Pulse Resp BP Pulse Ox 07/09/20 06:53 36.5 C 07/09/20 06:45 77 93 07/09/20 06:30 79 94 07/09/20 06:15 87 94 07/09/20 06:01 93 H 103/59 L 95 07/09/20 06:00 93 H 87 L 07/09/20 05:45 36.1 C L 85 94 07/09/20 05:30 36.1 C L 69 97 07/09/20 05:25 36.1 C L 56 L 97 07/09/20 05:20 36.2 C L 60 97 07/09/20 05:18 36.2 C L 61 162/87 H 94 07/09/20 05:15 36.2 C L 55 L 97 07/09/20 05:10 36.2 C L 79 97 07/09/20 05:05 36.2 C L 80 96 07/09/20 05:00 36.2 C L 84 102/62 96 07/09/20 04:55 36.2 C L 89 95 07/09/20 04:50 36.2 C L 91 H 94 07/09/20 04:45 36.3 C L 80 97 07/09/20 04:44 36.3 C L 83 97 07/09/20 04:40 36.3 C L 44 L 97 07/09/20 04:38 36.3 C L 42 L 98 07/09/20 04:30 36.3 C L 78 96 07/09/20 04:15 36.3 C L 74 94 07/09/20 04:00 36.2 C L 105 H 114/76 07/09/20 03:49 85 18 93 07/09/20 03:45 36.2 C L 118 H 90 07/09/20 03:30 36.3 C L 94 H 92 07/09/20 03:25 36.3 C L 88 94 07/09/20 03:24 36.3 C L 94 H 139/71 93 07/09/20 03:20 36.3 C L 106 H 95 07/09/20 03:19 36.3 C L 104 H 71/43 L 07/09/20 03:16 36.3 C L 103 H 74/44 L 94 07/09/20 03:15 36.3 C L 103 H 94 07/09/20 03:10 36.3 C L 87 95 07/09/20 03:05 36.3 C L 56 L 95 07/09/20 03:02 36.3 C L 48 L 136/64 95 07/09/20 03:00 36.3 C L 43 L 100 07/09/20 02:55 36.3 C L 38 L 100 07/09/20 02:50 36.3 C L 39 L 100 07/09/20 02:45 36.3 C L 42 L 99 07/09/20 02:40 36.3 C L 42 L 99 07/09/20 02:35 36.3 C L 51 L 99 07/09/20 02:30 36.3 C L 43 L 99 07/09/20 02:25 36.3 C L 47 L 99 07/09/20 02:20 36.3 C L 48 L 99 07/09/20 02:15 36.3 C L 41 L 99 07/09/20 02:10 36.3 C L 41 L 99 07/09/20 02:05 36.3 C L 47 L 99 07/09/20 02:00 36.3 C L 40 L 100/55 L 100 07/09/20 01:55 36.3 C L 47 L 99 07/09/20 01:50 36.3 C L 55 L 99 07/09/20 01:45 36.3 C L 43 L 99 07/09/20 01:40 36.3 C L 44 L 99 07/09/20 01:35 36.3 C L 42 L 98 07/09/20 01:30 36.3 C L 45 L 99 07/09/20 01:25 36.3 C L 40 L 99 07/09/20 01:20 36.3 C L 42 L 98 07/09/20 01:15 36.3 C L 41 L 97 07/09/20 01:03 42 L 07/09/20 01:00 36.3 C L 42 L 116/57 L 99 07/09/20 00:58 36.2 C L 42 L 116/58 L 99 07/09/20 00:45 36.2 C L 45 L 97 07/09/20 00:30 36.2 C L 62 97 07/09/20 00:26 36.3 C L 77 77/52 L 99 07/09/20 00:20 36.2 C L 70 172/141 H 96 07/09/20 00:15 36.2 C L 67 95 07/09/20 00:05 36.2 C L 45 L 154/76 H 100 07/09/20 00:03 51 L 07/09/20 00:00 36.2 C L 45 L 96 07/08/20 23:45 36.2 C L 44 L 100 07/08/20 23:30 36.2 C L 46 L 100 07/08/20 23:27 49 L 14 100 07/08/20 23:15 36.2 C L 58 L 98 07/08/20 23:00 36.2 C L 46 L 99/58 L 100 07/08/20 22:45 36.2 C L 47 L 100 07/08/20 22:30 36.2 C L 52 L 100 07/08/20 22:15 36.2 C L 51 L 99 07/08/20 22:01 36.2 C L 56 L 112/49 L 100 07/08/20 22:00 36.2 C L 50 L 07/08/20 21:45 36.2 C L 51 L 98 07/08/20 21:30 36.2 C L 49 L 99 07/08/20 21:15 36.2 C L 45 L 98 Laboratory Results 07/09/20 05:04 07/09/20 05:04 AB.40/50/146 Diagnostic Findings Chest x-ray today independently reviewed. Lung volumes remain low. There are bilateral pleural effusions. Tubes and lines are appropriate. Coding Level of Care Code Critical Care 1st 30-74 mins Diagnoses Bowel perforation K63.1 Septic shock A41.9; R65.21 Anemia D64.9 Renal failure, acute N17.9 Diastolic CHF, chronic I50.32 Obesity hypoventilation syndrome E66.2 Time Spent (min) 48
[2020-07-09] MEDS ORDERED: MEROPENEM CONSULT ACITVE PRN (10:25)
--- NOTE | 2020-07-09 10:33 | Cardiology Consultation ---
Date of Consultation July 09, 2020 Assessment & Plan (1) Septic shock: (2) Renal failure, acute: (3) Bowel perforation: (4) Respiratory failure: (5) Right bundle branch block: (6) Bradycardia: This patient is critically ill. He needs continued supportive care. In regard to bradycardic events, one consideration would be a vagal episode due to the ET tube. I would switch him from Levophed to dopamine to better control his hypotension as well as bradycardic events. I do not believe at this time he requires a temporary pacemaker. I would continue with medical treatment and external pacing as needed. He has positive blood cultures for fungalemia. I therefore would not want to place further instruments or devices at this time. He is not a candidate also for permanent pacemaker at this time. An echocardiogram has been ordered to exclude perivalvular abscess which may be contributing to conduction abnormalities. I will review that study when it is completed. History of Present Illness Attending Physician: Shola Damon, History of Present Illness This is a 79-year-old male patient who is seen in the ICU. He is intubated and sedated. The information is taken from the medical record, nursing staff and critical care physician. The patient recently had a sigmoid volvulus surgically repaired. He then presented 5 days later and there was concern for a visceral perforation. He was taken to the OR and exploratory lap was performed. The patient then was admitted to the ICU with a sepsis type picture. His urine culture grew out E. coli. His blood cultures have grown out yeast. He remains critically ill and on multiple pressors. Last evening he had some episodes of bradycardia treated with atropine. He was on Levophed and now has been switched to dopamine for better heart rate control. Recently, he had an echocardiogram that essentially shows normal LV function. His EKG at baseline has a right bundle branch block. So far this morning he has had no bradycardic episodes and he is hemodynamically stable. Allergies Allergy/AdvReac Type Severity Reaction Status Date / Time No Known Allergies Allergy Verified 07/06/20 21:30 Home Medications Medication Instructions Recorded Confirmed Type amlodipine 5 mg tablet 5 mg PO QAM 11/20/18 06/13/20 History aspirin 81 mg tablet,delayed 81 mg PO QAM 11/20/18 06/13/20 History release simvastatin 20 mg tablet 20 mg PO HS tab 11/20/18 06/13/20 History bumetanide 1 mg tablet 1.5 mg PO BID tab 01/08/19 06/13/20 History cholecalciferol (vitamin D3) 25 1,000 units PO QAM 01/08/19 06/13/20 History mcg (1,000 unit) capsule colchicine 0.6 mg capsule 0.6 mg PO QAM 01/08/19 06/13/20 History CPAP Machine #1 ea 02/07/19 06/13/20 Rx Oxygen Home #1 ea 05/13/19 06/13/20 Rx calcium carbonate [Tums] 200 mg PO BID PRN 05/16/20 06/13/20 History levothyroxine 175 mcg PO DAILYBB 06/13/20 06/13/20 History colchicine [Colcrys] 0.6 mg PO BID 30 Days #60 tab 07/04/20 Rx pantoprazole 40 mg PO QAM 30 Days #30 tab 07/04/20 Rx tamsulosin [Flomax] 0.4 mg PO HS #30 cap 07/04/20 Rx L.acidop,nury,lac,rha-B.lac,taz 2 cap PO QAM 07/06/20 History [Advanced Probiotic] Patient History Medical History Acute kidney failure on 06/14/20 Anemia Dyslipidemia GERD (gastroesophageal reflux disease) HTN (hypertension) Hx of gout Hypothyroidism Leukocytosis Neuropathy Obesity On home oxygen therapy 4 LPM qHS Restrictive lung disease Sleep apnea BiPAP + O2 at 4 LPM Venous insufficiency Surgical History H/O exploratory laparotomy (07/06/20) Exploratory Laparotomy, Repair of Gastrostomy, Replacement of Gastrostomy. Tube, and Abdominal Washout. - Shola Damon DO History of cataract surgery RT. 06/03/20. [facility]. 2mg versed, 50mcg fentanyl. no issues reported. History of colonoscopy S/P laparotomy (06/26/20) Laparoscopy converted to laparotomy, resection of descending sigmoid colon, partial rectal resection, gastrostomy - Hugo Ware MD, FACS Family History Father Hypertension Mother Lung cancer Aunt Diabetes Aunt Diabetes Other No family history of adverse response to anesthesia No significant family history Social History Smoking Status: Never smoker Second Hand Exposure: No; Hx Alcohol Use: No Hx Substance Use: No Preferred Language: Kazakh Communication Ability: Effective Visual Impairment: No Limitations Director Of Physician Practices Required: No Beliefs That Will Affect Care: None marital status: Current Living Situation: Spouse 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 Head: normocephalic, no masses, lesions, tenderness or abnormalities Eyes: conjunctiva are pink and non-injected, sclera clear Neck: supple, no adenopathy, no bruits, normal jugular venous pulse, no hepatojugular reflux Chest: normal shape and normal respiratory effort Lungs: clear to auscultation and percussion Cardiac Exam: - regular rate & rhythm, no murmurs gallops or rubs - normal S1, normal S2 Pulses: 2(+) throughout Abdomen: Postop abdomen, soft and not distended. Musculoskeletal: no gait disturbance, no joint inflammation, no deforming arthritis Extremities: no edema and no cyanosis Neuro: grossly normal exam Results & Data ([facility]) Vital Signs (Past 12 Hours) Vital Signs Temp Pulse Resp BP Pulse Ox 07/09/20 09:30 36.1 C L 77 93 07/09/20 09:15 36.0 C L 77 93 07/09/20 09:01 36.0 C L 71 158/78 H 94 07/09/20 09:00 36.0 C L 70 92 07/09/20 08:45 36.0 C L 94 H 92 07/09/20 08:30 36.0 C L 87 92 07/09/20 08:15 36.0 C L 63 92 07/09/20 08:00 35.9 C L 99 H 108/60 92 07/09/20 07:57 35.9 C L 89 102/66 91 07/09/20 07:45 35.9 C L 84 93 07/09/20 07:36 35.9 C L 80 86/59 L 90 07/09/20 07:30 35.9 C L 85 94 07/09/20 07:15 35.9 C L 85 100 07/09/20 07:00 35.9 C L 102 H 111/72 94 07/09/20 06:53 36.5 C 07/09/20 06:45 77 93 07/09/20 06:30 79 94 07/09/20 06:15 87 94 07/09/20 06:01 93 H 103/59 L 95 07/09/20 06:00 93 H 87 L 07/09/20 05:45 36.1 C L 85 94 07/09/20 05:30 36.1 C L 69 97 07/09/20 05:25 36.1 C L 56 L 97 07/09/20 05:20 36.2 C L 60 97 07/09/20 05:18 36.2 C L 61 162/87 H 94 07/09/20 05:15 36.2 C L 55 L 97 07/09/20 05:10 36.2 C L 79 97 07/09/20 05:05 36.2 C L 80 96 07/09/20 05:00 36.2 C L 84 102/62 96 07/09/20 04:55 36.2 C L 89 95 07/09/20 04:50 36.2 C L 91 H 94 07/09/20 04:45 36.3 C L 80 97 07/09/20 04:44 36.3 C L 83 97 07/09/20 04:40 36.3 C L 44 L 97 07/09/20 04:38 36.3 C L 42 L 98 07/09/20 04:30 36.3 C L 78 96 07/09/20 04:15 36.3 C L 74 94 07/09/20 04:00 36.2 C L 105 H 114/76 07/09/20 03:49 85 18 93 07/09/20 03:45 36.2 C L 118 H 90 07/09/20 03:30 36.3 C L 94 H 92 07/09/20 03:25 36.3 C L 88 94 07/09/20 03:24 36.3 C L 94 H 139/71 93 07/09/20 03:20 36.3 C L 106 H 95 07/09/20 03:19 36.3 C L 104 H 71/43 L 07/09/20 03:16 36.3 C L 103 H 74/44 L 94 07/09/20 03:15 36.3 C L 103 H 94 07/09/20 03:10 36.3 C L 87 95 07/09/20 03:05 36.3 C L 56 L 95 07/09/20 03:02 36.3 C L 48 L 136/64 95 07/09/20 03:00 36.3 C L 43 L 100 07/09/20 02:55 36.3 C L 38 L 100 07/09/20 02:50 36.3 C L 39 L 100 07/09/20 02:45 36.3 C L 42 L 99 07/09/20 02:40 36.3 C L 42 L 99 07/09/20 02:35 36.3 C L 51 L 99 07/09/20 02:30 36.3 C L 43 L 99 07/09/20 02:25 36.3 C L 47 L 99 07/09/20 02:20 36.3 C L 48 L 99 07/09/20 02:15 36.3 C L 41 L 99 07/09/20 02:10 36.3 C L 41 L 99 07/09/20 02:05 36.3 C L 47 L 99 07/09/20 02:00 36.3 C L 40 L 100/55 L 100 07/09/20 01:55 36.3 C L 47 L 99 07/09/20 01:50 36.3 C L 55 L 99 07/09/20 01:45 36.3 C L 43 L 99 07/09/20 01:40 36.3 C L 44 L 99 07/09/20 01:35 36.3 C L 42 L 98 07/09/20 01:30 36.3 C L 45 L 99 07/09/20 01:25 36.3 C L 40 L 99 07/09/20 01:20 36.3 C L 42 L 98 07/09/20 01:15 36.3 C L 41 L 97 07/09/20 01:03 42 L 07/09/20 01:00 36.3 C L 42 L 116/57 L 99 07/09/20 00:58 36.2 C L 42 L 116/58 L 99 07/09/20 00:45 36.2 C L 45 L 97 07/09/20 00:30 36.2 C L 62 97 07/09/20 00:26 36.3 C L 77 77/52 L 99 07/09/20 00:20 36.2 C L 70 172/141 H 96 07/09/20 00:15 36.2 C L 67 95 07/09/20 00:05 36.2 C L 45 L 154/76 H 100 07/09/20 00:03 51 L 07/09/20 00:00 36.2 C L 45 L 96 07/08/20 23:45 36.2 C L 44 L 100 07/08/20 23:30 36.2 C L 46 L 100 07/08/20 23:27 49 L 14 100 07/08/20 23:15 36.2 C L 58 L 98 07/08/20 23:00 36.2 C L 46 L 99/58 L 100 07/08/20 22:45 36.2 C L 47 L 100 07/08/20 22:30 36.2 C L 52 L 100 Laboratory Results Laboratory Results - last 24 hr 07/06/20 07/08/20 07/08/20 21:26 12:13 12:31 WBC RBC Hgb 8.9 L POC Hgb Hct 26.7 L POC Hct MCV MCH MCHC RDW Std Deviation RDW Coeff of Maximilian Plt Count MPV Neutrophils % (Manual) Lymphocytes % (Manual) Monocytes % (Manual) Eosinophils % (Manual) Neutrophils # (Manual) Total Absolute Neuts Lymphocytes # (Manual) Total Abs Lymphocytes Monocytes # (Manual) Eosinophils # (Manual) RBC Morphology POC pH POC pCO2 POC pO2 POC HCO3 POC Total CO2 POC Base Excess POC ABG O2 Sat POC Sodium Sodium POC Potassium Potassium Chloride Carbon Dioxide Anion Gap BUN Creatinine Est Cr Clr Drug Dosing Est GFR ( Amer) Est GFR (Non-Af Amer) BUN/Creatinine Ratio Glucose POC Glucose (other) 124 H Calcium Phosphorus Magnesium Total Bilirubin Direct Bilirubin AST ALT Alkaline Phosphatase Total Protein Albumin Procalcitonin Crossmatch See Detail 07/08/20 07/08/20 07/09/20 18:04 19:42 00:14 WBC RBC Hgb 9.4 L POC Hgb Hct 28.1 L POC Hct MCV MCH MCHC RDW Std Deviation RDW Coeff of Maximilian Plt Count MPV Neutrophils % (Manual) Lymphocytes % (Manual) Monocytes % (Manual) Eosinophils % (Manual) Neutrophils # (Manual) Total Absolute Neuts Lymphocytes # (Manual) Total Abs Lymphocytes Monocytes # (Manual) Eosinophils # (Manual) RBC Morphology POC pH 7.31 L POC pCO2 57 H POC pO2 120 H POC HCO3 28 H POC Total CO2 30 POC Base Excess 2.0 H POC ABG O2 Sat 98.0 H POC Sodium Sodium POC Potassium Potassium Chloride Carbon Dioxide Anion Gap BUN Creatinine Est Cr Clr Drug Dosing Est GFR ( Amer) Est GFR (Non-Af Amer) BUN/Creatinine Ratio Glucose POC Glucose (other) 119 H Calcium Phosphorus Magnesium Total Bilirubin Direct Bilirubin AST ALT Alkaline Phosphatase Total Protein Albumin Procalcitonin Crossmatch 07/09/20 07/09/20 07/09/20 00:14 00:32 03:58 WBC RBC Hgb POC Hgb 10.5 L Hct POC Hct 31 L MCV MCH MCHC RDW Std Deviation RDW Coeff of Maximilian Plt Count MPV Neutrophils % (Manual) Lymphocytes % (Manual) Monocytes % (Manual) Eosinophils % (Manual) Neutrophils # (Manual) Total Absolute Neuts Lymphocytes # (Manual) Total Abs Lymphocytes Monocytes # (Manual) Eosinophils # (Manual) RBC Morphology POC pH 7.40 POC pCO2 50 H POC pO2 146 H POC HCO3 31 H POC Total CO2 32 H POC Base Excess 6.0 H POC ABG O2 Sat 99.0 H POC Sodium 144 Sodium 144 POC Potassium 3.9 Potassium 3.1 L Chloride 110 H Carbon Dioxide 28 Anion Gap 6.0 BUN 22 H Creatinine 0.92 Est Cr Clr Drug Dosing 102.8 Est GFR ( Amer) 91.4 Est GFR (Non-Af Amer) 78.8 BUN/Creatinine Ratio 23.8 H Glucose 114 H POC Glucose (other) 113 H Calcium 8.0 L Phosphorus 3.3 D Magnesium 1.9 Total Bilirubin Direct Bilirubin AST ALT Alkaline Phosphatase Total Protein Albumin Procalcitonin Crossmatch 07/09/20 07/09/20 07/09/20 05:04 05:04 05:04 WBC 17.50 H RBC 3.15 L Hgb 9.3 L POC Hgb Hct 28.0 L POC Hct MCV 88.9 MCH 29.5 MCHC 33.2 RDW Std Deviation 54.8 H RDW Coeff of Maximilian 17.1 H Plt Count 410 H MPV 8.5 Neutrophils % (Manual) 90.4 Lymphocytes % (Manual) 3.5 Monocytes % (Manual) 3.5 Eosinophils % (Manual) 2.6 Neutrophils # (Manual) 15.82 H Total Absolute Neuts 15.82 H Lymphocytes # (Manual) 0.61 L Total Abs Lymphocytes 0.61 L Monocytes # (Manual) 0.61 H Eosinophils # (Manual) 0.46 RBC Morphology Unremarkable POC pH POC pCO2 POC pO2 POC HCO3 POC Total CO2 POC Base Excess POC ABG O2 Sat POC Sodium Sodium 146 H POC Potassium Potassium 3.5 Chloride 112 H Carbon Dioxide 28 Anion Gap 6.0 BUN 21 H Creatinine 0.87 Est Cr Clr Drug Dosing 108.7 Est GFR ( Amer) 95.1 Est GFR (Non-Af Amer) 82.1 BUN/Creatinine Ratio 24.4 H Glucose 109 H POC Glucose (other) Calcium 7.9 L Phosphorus 3.2 Magnesium 1.9 Total Bilirubin 0.6 Direct Bilirubin 0.3 H AST 11 L ALT 16 Alkaline Phosphatase 92 Total Protein 5.1 L Albumin 2.3 L Procalcitonin 2.70 H Crossmatch Medications Administered Current Inpatient Medications Fentanyl Citrate (Fentanyl Bolus From Bag) 50 mcg IV Q60M PRN PRN Reason: Pain or Agitation Stop: 07/21/20 02:45 Last Admin: 07/08/20 16:34 Dose: 50 mcg Documented by: Heparin Sodium (Porcine) (Heparin Sod 5,000 Unit/0.5 Ml Vial) 7,500 units SQ BID [facility] Stop: 08/07/20 20:59 Last Admin: 07/09/20 08:14 Dose: 7,500 units Documented by: Sodium Chloride (Nss 1000ml) 1,000 mls @ 30 mls/hr IV .Q24H [facility] Stop: 08/06/20 02:28 Last Admin: 07/09/20 01:14 Dose: 75 mls/hr Documented by: Famotidine 20 mg/ Syringe 5 mls @ 2.5 mls/min IV Q12H [facility] Stop: 08/06/20 08:59 Last Admin: 07/09/20 08:14 Dose: 2.5 mls/min Documented by: Midazolam HCl (Versed) 125 mg in 250 mls @ 2 mls/hr IV .Q96H [facility]; Protocol Stop: 08/06/20 02:59 Last Titration: 07/09/20 07:16 Dose: 1 mg/hr, 2 mls/hr Documented by: Fentanyl Citrate (Fentanyl Drip) 1,250 mcg in 250 mls @ 10 mls/hr IV .Q25H [facility]; Protocol Stop: 07/21/20 02:59 Last Titration: 07/09/20 07:15 Dose: 50 mcg/hr, 10 mls/hr Documented by: Norepinephrine Bitartrate (Levophed/D5w) 32 mg in 250 mls @ 6.202 mls/hr IV .Q24H [facility]; Protocol Stop: 08/06/20 10:44 Last Titration: 07/09/20 08:30 Dose: 0.09 mcg/kg/min, 6.2 mls/hr Documented by: Caspofungin 50 mg/ Sodium (Chloride) 260 mls @ 260 mls/hr IV DAILY YOSSI Stop: 07/18/20 08:59 Last Infusion: 07/09/20 09:43 Dose: Infused Documented by: Vasopressin 20 units/ Sodium (Chloride) 101 mls @ 12.12 mls/hr IV .Q8H20M [facility] Stop: 08/07/20 09:44 Dopamine HCl/Dextrose (Dopamine / D5w) 400 mg in 250 mls @ 53.25 mls/hr IV .Q4H42M [facility]; Protocol Stop: 08/08/20 00:59 Last Titration: 07/09/20 09:20 Dose: 4 mcg/kg/min, 21.3 mls/hr Documented by: Insulin Aspart (Insulin Aspart 100 Units/Ml 3 Ml Pen) 0 units SC Q6 [facility]; Protocol Stop: 08/06/20 13:14 Last Admin: 07/09/20 05:51 Dose: Not Given Documented by: Midazolam HCl (Midazolam Bolus From Bag) 2 mg IV Q60M PRN PRN Reason: Sedation Stop: 08/06/20 02:45 Miscellaneous Information (Meropenem Consult Acitve) 1 ea N/A UD PRN PRN Reason: Consult Stop: 08/08/20 10:24 (1) Respiratory failure Chronicity: acute Respiratory failure complication: hypoxia and hypercapnia Qualified Code(s): J96.01 - Acute respiratory failure with hypoxia; J96.02 - Acute respiratory failure with hypercapnia
[2020-07-09] MEDS: MEROPENEM 500 MG in SYRINGE 0 ML IV SCH ×2 (11:02→17:50)
[2020-07-09 12:52] LABS: BUN Creatinine Ratio 26.2 (10-20); Calcium 8.7 mg/dl (8.5-10.1); Creatinine Clr Calc Pharmacy 118.2 ml/min; Est GFR (African American) 98.5; Potassium 3.7 mmol/L (3.5-5.1)
[2020-07-09] MEDS: fentaNYL DRIP 1,250 MCG/250 ML BAG IV SCH (16:33)
--- NOTE | 2020-07-09 16:35 | Ophthalmology Consultation ---
Date of Consultation July 09, 2020 Requested By: [facility] History of Present Illness: 79 y/o male admitted in ICU. Intubated, unable to communicate. Consultation requested to r/o fungal endophthalmitis. Past Ocular History: Right Eye: 1. unknown Left Eye: 1. unkown Medications: see EMR Relevant Past Medical History: see EMR VA sc OD: unable OS: unable IOP: 18 OD and 17 OS by [place] VF: unable Motility: unable no RAPD OU External: The ocular adnexae are unremarkable. SLE: Lids/Lashes: blepharitis OU Conjunctiva/Sclera: quiet OU Cornea: clear OU Anterior Chamber: deep and quiet OU Iris: normal OU; no NVI OU Lens: PCIOL OD; 3+NSC OS Dilated fundus exam OD: (pharm dilated with phenylephrine 2.5% and tropicamide 1%) vitreous: clear optic nerve: no edema/pallor/NVD macula: wnl vessels: wnl midperiphery: wnl periphery: no RT/RD Dilated fundus exam OS: (pharm dilated with phenylephrine 2.5% and tropicamide 1%) vitreous: clear optic nerve: no edema/pallor/NVD macula: wnl vessels: wnl midperiphery: wnl periphery: no RT/RD Assessment: 1. No fungal endophthalmitis OU 2. Pseudophakia OD 3. Cataract OS Follow-Up: as needed Ras Rivas DO History of Present Illness Attending Physician: Shola Damon DO Allergies Allergy/AdvReac Type Severity Reaction Status Date / Time No Known Allergies Allergy Verified 07/06/20 21:30 Home Medications Medication Instructions Recorded Confirmed Type amlodipine 5 mg tablet 5 mg PO QAM 11/20/18 06/13/20 History aspirin 81 mg tablet,delayed 81 mg PO QAM 11/20/18 06/13/20 History release simvastatin 20 mg tablet 20 mg PO HS tab 11/20/18 06/13/20 History bumetanide 1 mg tablet 1.5 mg PO BID tab 01/08/19 06/13/20 History cholecalciferol (vitamin D3) 25 1,000 units PO QAM 01/08/19 06/13/20 History mcg (1,000 unit) capsule colchicine 0.6 mg capsule 0.6 mg PO QAM 01/08/19 06/13/20 History CPAP Machine #1 ea 02/07/19 06/13/20 Rx Oxygen Home #1 ea 05/13/19 06/13/20 Rx calcium carbonate [Tums] 200 mg PO BID PRN 05/16/20 06/13/20 History levothyroxine 175 mcg PO DAILYBB 06/13/20 06/13/20 History colchicine [Colcrys] 0.6 mg PO BID 30 Days #60 tab 07/04/20 Rx pantoprazole 40 mg PO QAM 30 Days #30 tab 07/04/20 Rx tamsulosin [Flomax] 0.4 mg PO HS #30 cap 07/04/20 Rx L.acidop,nury,lac,rha-B.lac,taz 2 cap PO QAM 07/06/20 History [Advanced Probiotic] Patient History Medical History Acute kidney failure on 06/14/20 Anemia Dyslipidemia GERD (gastroesophageal reflux disease) HTN (hypertension) Hx of gout Hypothyroidism Leukocytosis Neuropathy Obesity On home oxygen therapy 4 LPM qHS Restrictive lung disease Sleep apnea BiPAP + O2 at 4 LPM Venous insufficiency Surgical History H/O exploratory laparotomy (07/06/20) Exploratory Laparotomy, Repair of Gastrostomy, Replacement of Gastrostomy. Tube, and Abdominal Washout. - Shola Damon DO History of cataract surgery RT. 06/03/20. MNSC. 2mg versed, 50mcg fentanyl. no issues reported. History of colonoscopy S/P laparotomy (06/26/20) Laparoscopy converted to laparotomy, resection of descending sigmoid colon, partial rectal resection, gastrostomy - Hugo Ware MD, FACS Family History Father Hypertension Mother Lung cancer Aunt Diabetes Aunt Diabetes Other No family history of adverse response to anesthesia No significant family history Social History Smoking Status: Never smoker Second Hand Exposure: No; Hx Alcohol Use: No Hx Substance Use: No Preferred Language: Yakut Communication Ability: Effective Visual Impairment: No Limitations Loop Drier Operator Required: No Beliefs That Will Affect Care: None marital status: Current Living Situation: Spouse 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) Vital Signs (Past 12 Hours) Vital Signs Temp Pulse Resp BP Pulse Ox 07/09/20 15:37 77 14 90 07/09/20 15:00 37.2 C 84 109/67 87 L 07/09/20 14:45 37.1 C 89 85 L 07/09/20 14:30 37.1 C 111 H 92 07/09/20 14:15 37.0 C 73 96 07/09/20 14:00 36.9 C 77 114/70 97 07/09/20 13:45 36.9 C 78 92 07/09/20 13:30 36.8 C 78 97 07/09/20 13:15 36.8 C 77 96 07/09/20 13:00 36.7 C 75 126/71 96 07/09/20 12:45 36.7 C 78 96 07/09/20 12:30 36.7 C 95 H 85 L 07/09/20 12:15 36.6 C 76 94 07/09/20 12:00 36.6 C 82 122/77 95 07/09/20 11:45 36.5 C 81 94 07/09/20 11:30 36.5 C 78 93 07/09/20 11:15 36.4 C L 91 H 89 L 07/09/20 11:00 36.4 C L 75 114/64 93 07/09/20 10:45 36.3 C L 89 92 07/09/20 10:40 89 15 92 07/09/20 10:30 36.2 C L 98 H 93 07/09/20 10:15 36.2 C L 76 93 07/09/20 10:01 36.2 C L 84 108/67 94 07/09/20 10:00 36.2 C L 84 07/09/20 09:45 36.1 C L 79 93 07/09/20 09:30 36.1 C L 77 93 07/09/20 09:15 36.0 C L 77 93 07/09/20 09:01 36.0 C L 71 158/78 H 94 07/09/20 09:00 36.0 C L 70 92 07/09/20 08:45 36.0 C L 94 H 92 07/09/20 08:30 36.0 C L 87 92 07/09/20 08:15 36.0 C L 63 92 07/09/20 08:00 35.9 C L 99 H 108/60 92 07/09/20 07:57 35.9 C L 89 102/66 91 07/09/20 07:45 35.9 C L 84 93 07/09/20 07:36 35.9 C L 80 86/59 L 90 07/09/20 07:30 35.9 C L 90 94 07/09/20 07:15 35.9 C L 85 100 07/09/20 07:12 82 14 94 07/09/20 07:00 35.9 C L 102 H 111/72 94 07/09/20 06:53 36.5 C 07/09/20 06:45 77 93 07/09/20 06:30 79 94 07/09/20 06:15 87 94 07/09/20 06:01 93 H 103/59 L 95 07/09/20 06:00 93 H 87 L 07/09/20 05:45 36.1 C L 85 94 07/09/20 05:30 36.1 C L 69 97 07/09/20 05:25 36.1 C L 56 L 97 07/09/20 05:20 36.2 C L 60 97 07/09/20 05:18 36.2 C L 61 162/87 H 94 07/09/20 05:15 36.2 C L 55 L 97 07/09/20 05:10 36.2 C L 79 97 07/09/20 05:05 36.2 C L 80 96 07/09/20 05:00 36.2 C L 84 102/62 96 07/09/20 04:55 36.2 C L 89 95 07/09/20 04:50 36.2 C L 91 H 94 07/09/20 04:45 36.3 C L 80 97 07/09/20 04:44 36.3 C L 83 97 07/09/20 04:40 36.3 C L 44 L 97 07/09/20 04:38 36.3 C L 42 L 98
[2020-07-09] MEDS: MIDAZOLAM HCL 125 MG/250 ML BAG IV SCH (22:32)
[2020-07-10] MEDS: INSULIN ASPART 100 UNITS/ML 3 ML PEN SC SCH ×4 (00:40→18:10)
[2020-07-10] MEDS: MEROPENEM 500 MG in SYRINGE 0 ML IV SCH ×3 (01:46→18:40)
[2020-07-10] MEDS: DOPamine / D5W 400 MG/250 ML BAG IV SCH ×6 (03:06→21:17)
[2020-07-10] MEDS: fentaNYL DRIP 1,250 MCG/250 ML BAG IV SCH ×3 (03:06→18:00)
[2020-07-10 04:46] LABS: iSTAT Arterial Blood Gas HCO3 30 meg/L (19-24); iSTAT Arterial Blood Gas pCO2 47 mmHg (35-46); iSTAT Arterial Blood Gas pH 7.42 (7.35-7.45); iSTAT Arterial Blood Gas pO2 72 mmHg (80-95); iSTAT Carbon Dioxide 32 mmol/L (24-31)
[2020-07-10 05:28] LABS: Basophils # (auto) 0.05 K/uL (0-0.2); Basophils % (auto) 0.3 %; Eosinophils # (auto) 0.18 K/uL (0-0.5); Eosinophils % (auto) 1.1 %; Hematocrit (blood only) 29.8 % (42-52); Hemoglobin 9.8 g/dL (14.0-18.0); Immature Granulocytes # (auto) 0.46 K/uL (0.00-0.02); Immature Granulocytes % (auto) 2.8 %; Lymphocytes # (auto) 1.57 K/uL (1.2-3.4); Lymphocytes % (auto) 9.6 %; Mean Corpuscular Hemoglobin 29.3 pg (25-34); Mean Corpuscular Hgb Conc 32.9 g/dL (32-36); Mean Corpuscular Volume 89.2 fL (80-100); Monocytes # (auto) 1.45 K/uL (0.11-0.59); Monocytes % (auto) 8.8 %; Neutrophils % (auto) 77.4 %; Platelet Count 434 K/uL (130-400); RDW Coefficient of Variation 16.8 % (11.5-14.5); RDW Standard Deviation 54.3 fL (36.4-46.3); Red Blood Count 3.34 M/uL (4.7-6.1); White Blood Count 16.41 K/uL (4.8-10.8)
[2020-07-10 06:15] LABS: Bilirubin Direct 0.2 mg/dl (0-0.2)
[2020-07-10 06:16] LABS: Albumin Level 1.8 gm/dl (3.4-5.0); BUN Creatinine Ratio 20.3 (10-20); Bilirubin,Total 0.5 mg/dl (0.2-1); Calcium 7.6 mg/dl (8.5-10.1); Creatinine Clr Calc Pharmacy 140.2 ml/min; Est GFR (African American) 105.3; Est GFR (Non-African American) 90.8; Magnesium 1.8 mg/dl (1.8-2.4); Phosphorus 2.6 mg/dl (2.5-4.9); Potassium 3.4 mmol/L (3.5-5.1); Total Protein 5.1 gm/dl (6.4-8.2)
[2020-07-10] MEDS: ALBUMIN 25% 12.5 GM/50 ML VIAL IV SCH ×2 (06:27→07:19)
[2020-07-10] MEDS: SODIUM CHLORIDE 0.9% 1000ML 1,000 ML IV SCH ×2 (06:28→19:57)
[2020-07-10] MEDS: POTASSIUM CHLORIDE / WTR 20 MEQ/100 ML PLCT IV SCH ×3 (06:42→23:41)
[2020-07-10] MEDS: VASOPRESSIN 20 UNITS in 0.9 % SODIUM CHLORIDE 100 ML IV SCH ×2 (07:31→12:30)
--- NOTE | 2020-07-10 08:15 | XRay Report ---
XR chest 1V portable HISTORY: 79 years-old Male f/u up acute respiratory failure COMPARISON: Chest radiograph 07/09/2020 TECHNIQUE: Portable AP view the chest FINDINGS: Cardiac silhouette is enlarged. Endotracheal tube overlies the midline, 3.4 cm superior to the jie . Right IJ central venous catheter distal tip overlies the right atrium. Cardiomegaly. Pulmonary vasc ular congestion with interstitial coarsening. Low lung volumes. No pneumothorax. Right greater than l eft layering pleural effusions with bibasilar opacities. Degenerative changes of the shoulders and sp ine. IMPRESSION: 1. Lines and tubes as above. 2. Cardiomegaly with unchanged pulmonary edema. 3. Layering pleural effusions with unchanged bibasilar opacities. ACT 112: Negative or not required by law. The above report was generated using voice recognition software. It may contain grammatical, syntax o r spelling errors. Electronically signed by: Charles Macias M.D. 07/10/2020 8:14 AM
[2020-07-10] MEDS: HEPARIN SOD 5,000 UNIT/0.5 ML VIAL SQ SCH ×2 (08:22→21:17)
[2020-07-10] MEDS: CASPOFUNGIN 50 MG in SODIUM CHLORIDE 0.9% 250 ML IV SCH (08:43)
[2020-07-10] MEDS: FAMOTIDINE 20 MG in SYRINGE 3 ML IV SCH ×2 (08:44→21:16)
--- NOTE | 2020-07-10 10:10 | Cardiology Progress Note ---
Date of Service July 10, 2020 Assessment & Plan (1) Septic shock: (2) Renal failure, acute: (3) Bowel perforation: (4) Respiratory failure: (5) Right bundle branch block: (6) Bradycardia: The patient seems to be doing better clinically. On the telemetry through today he is not had any additional bradycardic episodes. He is still on dopamine for pressure support. Infectious disease note is appreciated. Additional blood cultures are pending. If he is showing a persistent fungal inf ection then we will consider a ANASTASIA to evaluate for endocarditis and possible abscess. Admission and Anticipated Discharge Date Admission Date: July 07, 2020 Subjective The patient remains intubated and sedated. Review of Systems Review of Systems: Unobtainable due to endotracheal tube Physical Exam Physical Exam: General: Intubated and sedated Head: normocephalic, no masses, lesions, tenderness or abnormalities Eyes: conjunctiva are pink and non-injected, sclera clear Neck: supple, no adenopathy, no bruits, normal jugular venous pulse, no hepatojugular reflux Chest: normal shape and normal respiratory effort Lungs: clear to auscultation and percussion Cardiac Exam: - regular rate & rhythm, no murmurs gallops or rubs - normal S1, normal S2 Pulses: 2(+) throughout Abdomen: abdomen soft, non-tender, no abnormal masses and no hepatosplenomegaly Musculoskeletal: no gait disturbance, no joint inflammation, no deforming arthritis Extremities: no edema and no cyanosis Neuro: grossly normal exam Results & Data ([facility]) Vital Signs (Past 12 Hours) Vital Signs Temp Pulse Resp BP Pulse Ox 07/10/20 07:32 64 15 94 07/10/20 06:05 37.1 C 77 94 07/10/20 06:02 37.1 C 89 94 07/10/20 06:01 37.1 C 86 80/51 L 94 07/10/20 06:00 37.1 C 90 94 07/10/20 05:45 37.2 C 69 94 07/10/20 05:30 37.2 C 73 94 07/10/20 05:15 37.3 C 75 94 07/10/20 05:00 37.3 C 76 93/52 L 94 07/10/20 04:45 37.4 C 77 93 07/10/20 04:30 37.3 C 87 94 07/10/20 04:15 37.3 C 83 95 07/10/20 04:00 37.4 C 79 109/68 95 07/10/20 03:59 82 14 95 07/10/20 03:45 37.4 C 80 95 07/10/20 03:30 37.4 C 77 95 07/10/20 03:28 37.4 C 80 113/68 95 07/10/20 03:18 37.4 C 93 H 73/51 L 96 07/10/20 03:15 37.4 C 94 H 96 07/10/20 03:00 37.4 C 80 107/68 96 07/10/20 02:45 37.4 C 82 96 07/10/20 02:30 37.4 C 74 96 07/10/20 02:15 37.4 C 82 96 07/10/20 02:00 37.4 C 79 103/61 96 07/10/20 01:45 37.4 C 81 96 07/10/20 01:30 37.4 C 83 95 07/10/20 01:15 37.4 C 85 95 07/10/20 01:00 37.4 C 75 118/71 95 07/10/20 00:45 37.5 C 76 95 07/10/20 00:30 37.5 C 76 95 07/10/20 00:15 37.6 C H 77 95 07/10/20 00:00 37.6 C H 77 117/67 95 07/09/20 23:59 79 07/09/20 23:45 37.6 C H 81 94 07/09/20 23:30 37.7 C H 78 14 97 07/09/20 23:15 37.7 C H 78 97 07/09/20 23:00 37.7 C H 80 105/64 97 07/09/20 22:45 37.7 C H 78 97 07/09/20 22:30 37.7 C H 82 96 07/09/20 22:15 37.8 C H 83 96 Laboratory Results Laboratory Results - last 24 hr 07/06/20 07/09/20 07/09/20 21:26 11:49 12:03 WBC RBC Hgb Hct MCV MCH MCHC RDW Std Deviation RDW Coeff of Maximilian Plt Count MPV Immature Gran % (Auto) Neut % (Auto) Lymph % (Auto) Darke % (Auto) Eos % (Auto) Baso % (Auto) Neut # (Auto) Lymph # (Auto) Darke # (Auto) Eos # (Auto) Baso # (Auto) Immature Gran # (Auto) POC pH POC pCO2 POC pO2 POC HCO3 POC Total CO2 POC Base Excess POC ABG O2 Sat Sodium 143 Potassium 3.7 Chloride 110 H Carbon Dioxide 27 Anion Gap 6.0 BUN 21 H Creatinine 0.80 Est Cr Clr Drug Dosing 118.2 Est GFR ( Amer) 98.5 Est GFR (Non-Af Amer) 85.0 BUN/Creatinine Ratio 26.2 H Glucose 129 H POC Glucose (other) 130 H Calcium 8.7 Phosphorus Magnesium Total Bilirubin Direct Bilirubin AST ALT Alkaline Phosphatase Total Protein Albumin Procalcitonin Crossmatch See Detail 07/09/20 07/10/20 07/10/20 18:47 00:39 03:36 WBC RBC Hgb Hct MCV MCH MCHC RDW Std Deviation RDW Coeff of Maximilian Plt Count MPV Immature Gran % (Auto) Neut % (Auto) Lymph % (Auto) Darke % (Auto) Eos % (Auto) Baso % (Auto) Neut # (Auto) Lymph # (Auto) Darke # (Auto) Eos # (Auto) Baso # (Auto) Immature Gran # (Auto) POC pH 7.42 POC pCO2 47 H POC pO2 72 L POC HCO3 30 H POC Total CO2 32 H POC Base Excess 6.0 H POC ABG O2 Sat 94.0 Sodium Potassium Chloride Carbon Dioxide Anion Gap BUN Creatinine Est Cr Clr Drug Dosing Est GFR ( Amer) Est GFR (Non-Af Amer) BUN/Creatinine Ratio Glucose POC Glucose (other) 111 H 118 H Calcium Phosphorus Magnesium Total Bilirubin Direct Bilirubin AST ALT Alkaline Phosphatase Total Protein Albumin Procalcitonin Crossmatch 07/10/20 07/10/20 07/10/20 05:06 05:06 05:06 WBC 16.41 H RBC 3.34 L Hgb 9.8 L Hct 29.8 L MCV 89.2 MCH 29.3 MCHC 32.9 RDW Std Deviation 54.3 H RDW Coeff of Maximilian 16.8 H Plt Count 434 H MPV 9.0 Immature Gran % (Auto) 2.8 Neut % (Auto) 77.4 Lymph % (Auto) 9.6 Darke % (Auto) 8.8 Eos % (Auto) 1.1 Baso % (Auto) 0.3 Neut # (Auto) 12.70 H Lymph # (Auto) 1.57 Darke # (Auto) 1.45 H Eos # (Auto) 0.18 Baso # (Auto) 0.05 Immature Gran # (Auto) 0.46 H POC pH POC pCO2 POC pO2 POC HCO3 POC Total CO2 POC Base Excess POC ABG O2 Sat Sodium 145 Potassium 3.4 L Chloride 112 H Carbon Dioxide 27 Anion Gap 6.0 BUN 14 Creatinine 0.68 Est Cr Clr Drug Dosing 140.2 Est GFR ( Amer) 105.3 Est GFR (Non-Af Amer) 90.8 BUN/Creatinine Ratio 20.3 H Glucose 110 H POC Glucose (other) Calcium 7.6 L Phosphorus 2.6 Magnesium 1.8 Total Bilirubin 0.5 Direct Bilirubin 0.2 AST 13 L ALT 16 Alkaline Phosphatase 95 Total Protein 5.1 L Albumin 1.8 L Procalcitonin 1.39 H Crossmatch Medications Administered Current Inpatient Medications Fentanyl Citrate (Fentanyl Bolus From Bag) 50 mcg IV Q60M PRN PRN Reason: Pain or Agitation Stop: 07/21/20 02:45 Last Admin: 07/09/20 16:17 Dose: 50 mcg Documented by: Heparin Sodium (Porcine) (Heparin Sod 5,000 Unit/0.5 Ml Vial) 7,500 units SQ BID [facility] Stop: 08/07/20 20:59 Last Admin: 07/10/20 08:22 Dose: 7,500 units Documented by: Sodium Chloride (Nss 1000ml) 1,000 mls @ 30 mls/hr IV .Q24H [facility] Stop: 08/06/20 02:28 Last Admin: 07/10/20 06:28 Dose: 75 mls/hr Documented by: Famotidine 20 mg/ Syringe 5 mls @ 2.5 mls/min IV Q12H [facility] Stop: 08/06/20 08:59 Last Admin: 07/10/20 08:44 Dose: 2.5 mls/min Documented by: Midazolam HCl (Versed) 125 mg in 250 mls @ 6 mls/hr IV .[id number] [facility]; Protocol Stop: 08/06/20 02:59 Last Titration: 07/10/20 03:55 Dose: 3 mg/hr, 6 mls/hr Documented by: Fentanyl Citrate (Fentanyl Drip) 1,250 mcg in 250 mls @ 20 mls/hr IV .[id number] [facility]; Protocol Stop: 07/21/20 02:59 Last Titration: 07/10/20 07:00 Dose: 100 mcg/hr, 20 mls/hr Documented by: Norepinephrine Bitartrate (Levophed/D5w) 32 mg in 250 mls @ 0 mls/hr IV .Q0M YOSSI; Protocol Stop: 08/06/20 10:44 Last Titration: 07/09/20 15:00 Dose: 0 mcg/kg/min, 0 mls/hr Documented by: Caspofungin 50 mg/ Sodium (Chloride) 260 mls @ 260 mls/hr IV DAILY [facility] Stop: 07/18/20 08:59 Last Infusion: 07/10/20 09:45 Dose: Infused Documented by: Dopamine HCl/Dextrose (Dopamine / D5w) 400 mg in 250 mls @ 63.9 mls/hr IV .Q3H55M [facility]; Protocol Stop: 08/08/20 00:59 Last Admin: 07/10/20 07:31 Dose: 12 mcg/kg/min, 63.9 mls/hr Documented by: Meropenem 500 mg/ Syringe 10 mls @ 2 mls/min IV Q8H [facility]; Protocol Stop: 07/19/20 10:29 Last Admin: 07/10/20 01:46 Dose: 2 mls/min Documented by: Potassium Chloride (K Aman / Wtr) 20 meq in 100 mls @ 50 mls/hr IV Q2H [facility] Stop: 07/10/20 10:29 Last Admin: 07/10/20 08:22 Dose: 50 mls/hr Documented by: Insulin Aspart (Insulin Aspart 100 Units/Ml 3 Ml Pen) 0 units SC Q6 [facility]; Protocol Stop: 08/06/20 13:14 Last Admin: 07/10/20 06:26 Dose: Not Given Documented by: Midazolam HCl (Midazolam Bolus From Bag) 2 mg IV Q60M PRN PRN Reason: Sedation Stop: 08/06/20 02:45 Miscellaneous Information (Meropenem Consult Acitve) 1 ea N/A UD PRN PRN Reason: Consult Stop: 08/08/20 10:24 (1) Respiratory failure Chronicity: acute Respiratory failure complication: hypoxia and hypercapnia Qualified Code(s): J96.01 - Acute respiratory failure with hypoxia; J96.02 - Acute respiratory failure with hypercapnia
--- NOTE | 2020-07-10 10:58 | XRay Report ---
KUB HISTORY: Confirmation of G-tube placement. g tube check w/ contrast COMPARISON: KUB 06/27/2020 FINDINGS: Midline skin jonh of the abdomen with lower abdominal surgical drainage catheter(s). A g astrostomy tube is noted overlying the stomach on the initial images. Subsequent image was obtained a fter injection of 100 mL Optiray 300 through the gastrostomy tube into the stomach. There is partial opacification of the stomach without contrast extravasation. IMPRESSION: Satisfactory positioning of the gastrostomy tube. ACT 112: Negative or not required by law. The above report was generated using voice recognition software. It may contain grammatical, syntax o r spelling errors. Electronically signed by: Charles Macias M.D. 07/10/2020 10:57 AM
--- NOTE | 2020-07-10 13:05 | Critical Care Progress Note ---
Date of Service July 10, 2020 Assessment & Plan (1) Bowel perforation: (2) Septic shock: (3) Anemia: (4) Renal failure, acute: (5) Diastolic CHF, chronic: (6) Obesity hypoventilation syndrome: Impression: 79-year-old male status post exploratory laparotomy in the setting of free intraperitoneal air with replacement of gastric tube and drains requiring close hemodynamic monitoring in the setting of active extremities. 24 Hour events: ID consultation reviewed. Patient was transitioned off of Levophed onto dopamine. He is not had any additional pauses. We have been able to come down on his pressor requirement slightly. He remains intubated and sedated. Recommendations: NEURO - Currently sedated with Versed and fentanyl. Continue daily sedation break. Patient is not yet appropriate for ventilator weaning trials given his persistent septic shock. CARDIAC/VASCULAR - Severe sepsis with septic shock: The patient remains dependent on dopamine. Appreciate cardiology consultation. His random cortisol was normal. He is volume up and tolerated attempts at diuresis so we will place him on Lasix 40 mg twice daily in an effort to try and improve his position on the Starling curve.. Prior echocardiogram showed grade 1 diastolic dysfunction. Follow-up echocardiogram is deferred unless his cultures remain persistently positive. RESPIRATORY - Stable vent settings AC/14/500/6/0.35. The patient has a history of obesity hypoventilation and is on BiPAP normally. Once his hemodynamics tighten up, may consider SBT. We will plan to extubate to BiPAP. X-ray appears fluid overloaded with an expanding left effusion. No indication for thoracentesis currently. Respiratory alkalosis on blood gas. GI/NUTRITION - Peritonitis secondary to dislodgment of G-tube. Surgically corrected. Contrast injection through the G-tube today demonstrates it to be in the stomach with no evidence of leak. Will initiate trophic tube feeding as I doubt the patient will improve significantly without significant improvement in his nutritional status. As his hemodynamics improve, will advance tube feeds to goal. Given the patient's fungal bloodstream infection, is not a candidate for PPN or TPN RENAL/LYTES - Acute renal failure: Serum creatinine normal today. More aggressive diuresis as noted above. Electrolytes will continue to be repleted. Acid-base status stable. - Ibanez in place - Strict I&Os. ENDO - Glycemic control per ICU protocol. Continue home Synthroid when oral medications can safely be restarted. HEME - Stable hemoglobin and hematocrit status post transfusion. No evidence of ongoi ng blood loss. Continue to trend at this point time. Platelet count high consistent with infection [facility]. 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 Day #3 meropenem and Cancidas. Given the possibility of Enterococcus in the peritoneal fluid, will continue Carbapenem for now. Awaiting speciation of fungus but preliminarily appears to be 2 separate species, 1 albicans and one nonalbicans. We will continue can situs. Anticipate that he will need at least 2 weeks of therapy with antifungals and potentially 7 to 10 days of antibac terial therapy. Ophthalmology exam demonstrated no evidence of endophthalmitis. His surveillance cultures are currently pending. will need to change out lines in next day or so if cultures remain negative. LINES/IV ACCESS - PIVs x2 RIGHT IJ CVL RIGHT Radial Art line ET Tube Surgical G tube Ibanez MAYELIN Drain x2 DVT PROPHYLAXIS - Hold w/ recent abdominal surgery SCDs I have personally spent 45 minutes of critical care time in the direct management of this patient. This is a life/limb threatening event. This includes time spent evaluating patient, direct bedside care, chart review, placing orders, interpretation of diagnostic studies, discussion with consultants, patient, and family members, as well as other required patient management activities. This time is exclusive of all separately billable procedures, and teaching time and separate from and in addition to any other critical care service time. Patient is critically ill at this point time with multiorgan system dysfunction. Daughter updated. Discussed case with surgery at bedside. Prognosis for functional recovery is guarded. Daughter has made decision to not pursue CPR, or defibrillation in the event of clinical deterioration which I think is appropriate. We will continue to support in hopes of recovery Admission and Anticipated Discharge Date Admission Date: July 07, 2020 Subjective Intubated and sedated Review of Systems Review of Systems: Unobtainable due to endotracheal tube Physical Exam Eyes: PERRL, conjunctivae normal, anicteric sclerae EOM intact bilaterally ENMT: external ear and nose normal, oropharynx normal Ears: no hearing impairment Neck: trachea midline, no thyromegaly Respiratory: normal respiratory effort Cardiovascular: Rate/Rhythm: regular rate and regular rhythm Heart Sounds: normal S1 and normal S2; no murmur Extremities: + edema Psychiatric: Orientation: alert, oriented x 3 and cooperative Results & Data Results & Data ([facility]) Vital Signs (Past 12 Hours) Vital Signs Temp Pulse Resp BP Pulse Ox 07/10/20 12:00 36.7 C 83 91/58 L 94 07/10/20 11:03 63 15 93 07/10/20 11:00 62 121/75 87 L 07/10/20 10:00 36.8 C 71 101/66 84 L 07/10/20 09:30 36.9 C 64 95 07/10/20 09:00 36.9 C 67 117/67 94 07/10/20 08:00 37.0 C 64 114/61 94 07/10/20 07:32 64 15 94 07/10/20 07:00 37.1 C 75 104/59 L 93 07/10/20 06:05 37.1 C 77 94 07/10/20 06:02 37.1 C 89 94 07/10/20 06:01 37.1 C 86 80/51 L 94 07/10/20 06:00 37.1 C 90 94 07/10/20 05:45 37.2 C 69 94 07/10/20 05:30 37.2 C 73 94 07/10/20 05:15 37.3 C 75 94 07/10/20 05:00 37.3 C 76 93/52 L 94 07/10/20 04:45 37.4 C 77 93 07/10/20 04:30 37.3 C 87 94 07/10/20 04:15 37.3 C 83 95 07/10/20 04:00 37.4 C 79 109/68 95 07/10/20 03:59 82 14 95 07/10/20 03:45 37.4 C 80 95 07/10/20 03:30 37.4 C 77 95 07/10/20 03:28 37.4 C 80 113/68 95 07/10/20 03:18 37.4 C 93 H 73/51 L 96 07/10/20 03:15 37.4 C 94 H 96 07/10/20 03:00 37.4 C 80 107/68 96 07/10/20 02:45 37.4 C 82 96 07/10/20 02:30 37.4 C 74 96 07/10/20 02:15 37.4 C 82 96 07/10/20 02:00 37.4 C 79 103/61 96 07/10/20 01:45 37.4 C 81 96 07/10/20 01:30 37.4 C 83 95 07/10/20 01:15 37.4 C 85 95 07/10/20 01:00 37.4 C 75 118/71 95 Laboratory Results 07/10/20 05:06 07/10/20 05:06 Peritoneal cultures growing 2 separate species of yeast, 1 albicans/dublisens and a second which is nonalbicans Blood gas: 7.42/47/72 Calcium 7.6 LFTs unremarkable Albumin 1.8 Procalcitonin down to 1.39 Diagnostic Findings Chest x-ray from today was independently reviewed. Lung volumes remain low. There are bilateral pleural effusions, left greater than right. Endotracheal tube and central line in good position. Coding Level of Care Code Critical Care 1st 30-74 mins Diagnoses Bowel perforation K63.1 Septic shock A41.9; R65.21 Anemia D64.9 Renal failure, acute N17.9 Diastolic CHF, chronic I50.32 Obesity hypoventilation syndrome E66.2 Time Spent (min) 45
--- NOTE | 2020-07-10 13:07 | Consultation ---
Date of Consultation July 10, 2020 Assessment & Plan (1) Admitted to intensive care unit: (2) Bowel perforation: (3) Septic shock: (4) Fungemia: (5) Diastolic CHF, chronic: (6) COPD (chronic obstructive pulmonary disease): (7) Obesity hypoventilation syndrome: (8) Bradycardia: This is a 79-year-old male who has significant past medical history of HTN, HLD, diastolic CHF, RAIN on BiPAP, obesity hypoventilation syndrome, chronic respiratory failure with hypoxia on 2-3L of O2 at baseline, COPD who is currently admitted to intensive care unit. Initial procedure 06/26 for recurrent sigmoid volvulus with exp laparotomy, sigmoidectomy and gastrostomy by Dr. Ware Represented 07/07 with unresponsiveness, abdominal pain, severe pain. S/P Exp Laparotomy on 07/07 setting of free intraperitoneal air with replacement of gastric tube and drains requiring close hemodynamic monitoring in setting of severe sepsis and now fungemia Please refer to Chief Communications Officer progress note for continued assessment and plan Pt continues to require mechanical ventilation and is on IV dopamine for pressor support and bradycardia Cardiology has been consulted for bradycardia - this has since improved with dopamine Ophthalmology consulted - no evidence of endophthalmitis in setting of fungemia Continue current sedation with mechanical ventilation and pressor support with dopamine Patient remains on IV meropenem and capsafungin appreciate [facility] ID Consult - will defer antibiotic management to in tensivist - continue carbapenem in light of resistant e. coli in urine repeat blood cultures pending from 07/09, if persistent bacteremia cardiology recommending ANASTASIA If cultures remain negative will need change out of lines Lasix IV 40mg BID for volume management monitor intake/output (9) Anemia: H&H 9.8 and 29.9 Patient received 1 unit PRBC on 07/08 in setting of hemoglobin drop to 7.4 Continue to monitor H&H Patient has had significant output cumulatively from MAYELIN drain #1 and #2 (10) Hypokalemia: replace per ticket manager (11) DVT prophylaxis: SQ Heparin Dispo: per ticket manager Conditional Code Pt was seen and examined in collaboration with Dr. Mendoza, please see addendum We will assume role of attending and primary care of patient Starting 07/11/20 pt will be under the care of Dr. Aguilar Supervising Physician Co-Signing Physician Notes Patient seen and examined by tx, care coordinated with Eufemia Liu PA-C, please refer to note above for further detail. 79-year-old male, with recent history of sigmoid volvulus, underwent surgical procedure on June 26, then presented with sepsis several days later. Underwent ex lap with surgical team, gastric tube was found dislodged. Currently patient is in ICU, intubated, sedated, on dopamine for bradycardia and hypotension. On broad spectrum IV Abx and also on caspofungin for fungemia. Patient seen in room 111 in ICU. He is intubated and sedated. Rhonchorous breath sounds noted. Heart sounds regular. Abdomen obese, soft somewhat distended, significant horizontal scar at the left lower abdomen noted, +gastric tube. There is lower extremity edema 2+ pitting. Currently patient is in the care of ICU and surgical team. Surgical team will continue to follow. Current events reviewed, notes from cardiology and ID reviewed as well. MD Scot History of Present Illness Requesting Physician: Isabel Zuniga PA-C. Reason for Consultation: Transfer care from surgical service to medicine service for medical management. Attending Physician: Filiberto Mendoza MD History of Present Illness This is a 79-year-old male who has significant past medical history of HTN, HLD, diastolic CHF, RAIN on BiPAP, obesity hypoventilation syndrome, chronic respiratory failure with hypoxia, COPD who is currently admitted to intensive care unit. We have been consulted by general surgery team to take over as primary service for medical management. Patient has had significant recent hospital course initially starting on June 26 with a sigmoid resection and gastric tube placement secondary to sigmoid volvulus. He was discharged and doing well up until 07/07/2020 when he presented to ED secondary to abdominal pain and lethargy. He was unresponsive upon arrival and evaluation revealed substantial air under diaphragm. Patient was immediately intubated and taken to operating room to undergo additional exploratory laparotomy and was found to have dislodged G-tube. His G-tube was replaced and abdominal cavity was washed out by general surgery. He also had a right IJ and right radial artery line placed intraoperatively. He was empirically placed on IV Zosyn. Postoperatively he continues to remain vent dependent and continues to require vasopressor use. Most recently overnight patient became bradycardic requiring the use of IV dopamine. Cardiology service was consulted who recommended continue use of IV dopamine. Of significance patient does have persistent severe sepsis with septic shock in the setting of fungemia. Gram stain of peritoneal fluid is showing yeast as well as GPC's. His blood cultures were positive for yeast. He initially was placed on IV Zosyn and Capso. Cardiology on board is going to repeat echo to r/o valvular abscess. Most recent echo revealed normal systolic EF with diastolic dysfunction. Ophthalmology has also been consulted to evaluate for endophthalmitis in setting of fungemia. Infectious disease consult from [facility] has also been obtained. Charla roenterology is involved in plan is to do a dye study to determine G-tube function. Unable to do TPN or PPN in setting of fungemia. ROS unobtainable as patient is currently sedated on ventilator. Allergies Allergy/AdvReac Type Severity Reaction Status Date / Time No Known Allergies Allergy Verified 07/06/20 21:30 Home Medications Medication Instructions Recorded Confirmed Type amlodipine 5 mg tablet 5 mg PO QAM 11/20/18 06/13/20 History aspirin 81 mg tablet,delayed 81 mg PO QAM 11/20/18 06/13/20 History release simvastatin 20 mg tablet 20 mg PO HS tab 11/20/18 06/13/20 History bumetanide 1 mg tablet 1.5 mg PO BID tab 01/08/19 06/13/20 History cholecalciferol (vitamin D3) 25 1,000 units PO QAM 01/08/19 06/13/20 History mcg (1,000 unit) capsule colchicine 0.6 mg capsule 0.6 mg PO QAM 01/08/19 06/13/20 History CPAP Machine #1 ea 02/07/19 06/13/20 Rx Oxygen Home #1 ea 05/13/19 06/13/20 Rx calcium carbonate [Tums] 200 mg PO BID PRN 05/16/20 06/13/20 History levothyroxine 175 mcg PO DAILYBB 06/13/20 06/13/20 History colchicine [Colcrys] 0.6 mg PO BID 30 Days #60 tab 07/04/20 Rx pantoprazole 40 mg PO QAM 30 Days #30 tab 07/04/20 Rx tamsulosin [Flomax] 0.4 mg PO HS #30 cap 07/04/20 Rx L.acidop,nury,lac,rha-B.lac,taz 2 cap PO QAM 07/06/20 History [Advanced Probiotic] Patient History Medical History Acute kidney failure on 06/14/20 Anemia Dyslipidemia GERD (gastroesophageal reflux disease) HTN (hypertension) Hx of gout Hypothyroidism Leukocytosis Neuropathy Obesity On home oxygen therapy 4 LPM qHS Restrictive lung disease Sleep apnea BiPAP + O2 at 4 LPM Venous insufficiency Surgical History H/O exploratory laparotomy (07/06/20) Exploratory Laparotomy, Repair of Gastrostomy, Replacement of Gastrostomy. Tube, and Abdominal Washout. - Shola Damon, History of cataract surgery RT. 06/03/20. [facility]. 2mg versed, 50mcg fentanyl. no issues reported. History of colonoscopy S/P laparotomy (06/26/20) Laparoscopy converted to laparotomy, resection of descending sigmoid colon, partial rectal resection, gastrostomy - Hugo Ware MD, FACS Family History Father Hypertension Mother Lung cancer Aunt Diabetes Aunt Diabetes Other No family history of adverse response to anesthesia No significant family history Social History Smoking Status: Never smoker Second Hand Exposure: No; Hx Alcohol Use: No Hx Substance Use: No Preferred Language: [place] Communication Ability: Effective Visual Impairment: No Limitations Supervisor Photoengraving Required: No Beliefs That Will Affect Care: None marital status: Current Living Situation: Spouse 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 Other Information That Helps Us Care for You: No Feels Safe at Home: Yes Safety Concerns: Feels Safe At This Time Assistive Devices: Oxygen - Continuous Review of Systems Review of Systems: All systems reviewed & are unremarkable except as noted in HPI & below Physical Exam Physical Exam: Constitutional: Sedated and intubated, NAD, vitals as above Head: Normocephalic, Atraumatic ENMT: external ear and nose normal, oropharynx normal +ET tube in place Neck: trachea midline, no thyromegaly normal visual inspection Respiratory: normal respiratory effort, lungs clear to auscultation, +rhonchi, no wheeze, or rales. Normal insp/exp effort, no accessory muscle use Cardiovascular: RRR, no murmur, +2 LE pitting edema, +2 pedal pulses Vessels: no JVD or carotid bruit Chest: normal inspection of chest Abdomen: post op abdomen, soft, nontender, jonh intact, MAYELIN drains x 2 intact Musculoskeletal: no cyanosis or clubbing Skin: no rashes, warm and dry normal turgor Neuro: unable to assess due to intubation Psychiatric: unable to assess due to intubation : + vann cath draining clear yellow urine Results & Data ([facility]) Vital Signs (Past 12 Hours) Vital Signs Temp Pulse Resp BP Pulse Ox 07/10/20 12:00 36.7 C 83 91/58 L 94 07/10/20 11:03 63 15 93 07/10/20 11:00 62 121/75 87 L 07/10/20 10:00 36.8 C 71 101/66 84 L 07/10/20 09:30 36.9 C 64 95 07/10/20 09:00 36.9 C 67 117/67 94 07/10/20 08:00 37.0 C 64 114/61 94 07/10/20 07:32 64 15 94 07/10/20 07:00 37.1 C 75 104/59 L 93 07/10/20 06:05 37.1 C 77 94 07/10/20 06:02 37.1 C 89 94 07/10/20 06:01 37.1 C 86 80/51 L 94 07/10/20 06:00 37.1 C 90 94 07/10/20 05:45 37.2 C 69 94 07/10/20 05:30 37.2 C 73 94 07/10/20 05:15 37.3 C 75 94 07/10/20 05:00 37.3 C 76 93/52 L 94 07/10/20 04:45 37.4 C 77 93 07/10/20 04:30 37.3 C 87 94 07/10/20 04:15 37.3 C 83 95 07/10/20 04:00 37.4 C 79 109/68 95 07/10/20 03:59 82 14 95 07/10/20 03:45 37.4 C 80 95 07/10/20 03:30 37.4 C 77 95 07/10/20 03:28 37.4 C 80 113/68 95 07/10/20 03:18 37.4 C 93 H 73/51 L 96 07/10/20 03:15 37.4 C 94 H 96 07/10/20 03:00 37.4 C 80 107/68 96 07/10/20 02:45 37.4 C 82 07/10/20 02:30 37.4 C 74 96 07/10/20 02:15 37.4 C 82 96 07/10/20 02:00 37.4 C 79 103/61 96 07/10/20 01:45 37.4 C 81 96 07/10/20 01:30 37.4 C 83 07/10/20 01:15 37.4 C 85 95 07/10/20 01:00 37.4 C 75 118/71 07/10/20 00:45 37.5 C 76 95 Laboratory Results Short CBC 07/06/20 07/08/20 07/09/20 Range/Units 21:26 05:13 05:04 WBC (4.8-10.8) K/uL Hgb (14.0-18.0) g/dL Hct (42-52) % Plt Count (130-400) K/uL Procalcitonin 3.00 H 6.08 H 2.70 H (0-0.5) ng/ml 07/10/20 07/10/20 Range/Units 05:06 05:06 WBC 16.41 H (4.8-10.8) K/uL Hgb 9.8 L (14.0-18.0) g/dL Hct 29.8 L (42-52) % Plt Count 434 H (130-400) K/uL Procalcitonin 1.39 H (0-0.5) ng/ml BMP 07/09/20 07/10/20 11:49 05:06 Sodium 143 145 Potassium 3.7 3.4 L Chloride 110 H 112 H Carbon Dioxide 27 27 BUN 21 H 14 Creatinine 0.80 0.68 Glucose 129 H 110 H Calcium 8.7 7.6 L Liver Function 07/10/20 Range/Units 05:06 Total Bilirubin 0.5 (0.2-1) mg/dl Direct Bilirubin 0.2 (0-0.2) mg/dl AST 13 L (15-37) U/L ALT 16 (12-78) U/L Alkaline Phosphatase 95 (45-117) U/L Albumin 1.8 L (3.4-5.0) gm/dl Diagnostic Findings Chest X-Ray 07/06/20 21:05 XR chest 1V portable CLINICAL HISTORY: SEPSIS COMPARISON STUDY: 06/30/2020 FINDINGS: The heart is enlarged. There are increased perihilar markings consistent with pulmonary vascular congestion. There is extensive pneumoperitoneum.[ IMPRESSION: 1. Extensive pneumoperitoneum 2. Pulmonary vascular congestion ACT 112: Negative or not required by law. Electronically signed by: Mike Thomas M.D. 07/07/2020 6:46 AM Chest X-Ray 07/06/20 21:56 XR chest 1V portable CLINICAL HISTORY: Respiratory failure COMPARISON STUDY: Earlier in the evening FINDINGS: The endotracheal tube has been placed and is positioned 45 mm above the jie. The heart is enlarged. There are increased bilateral pulmonary markings likely secondary to congestive failure/fluid overload. Small pleural effusions are suspected. The previously described pneumoperitoneum is more difficult to visualize on the supine study.[There is nonspecific mediastinal widening. There is more focal atelectasis/consolidation at the right medial lung base. IMPRESSION: 1. Cardiomegaly and radiographic evidence of congestive failure/fluid overload 2. Endotracheal tube 45 mm above the jie 3. Nonspecific mediastinal widening 4. Suspect right medial basilar atelectasis/consolidation ACT 112: Negative or not required by law. Electronically signed by: Mike Thomas M.D. 07/07/2020 6:49 AM Chest X-Ray 07/07/20 01:48 XR chest 1V portable CLINICAL HISTORY: Right IJ Vein Central Line placement COMPARISON STUDY: 07/06/2020 FINDINGS: There is an endotracheal tube 38 mm above the jie. There is been interval placement of a right internal jugular central venous catheter. The tip projects over the superior vena cava. No pneumothorax is visualized. The heart is enlarged. There are bilateral pleural effusions with associated basilar atelectasis/consolidation. A catheter is visualized projected over the liver. This likely represents a subdiaphragmatic drain. Correlation with prior surgical history recommended.[ IMPRESSION: 1. Interval placement of right internal jugular central venous catheter. The tip projects over the superior vena cava. There is no pneumothorax 2. Endotracheal tube 38 mm above the jie 3. Cardiomegaly, bilateral pleural effusions, and bibasilar atelectasis/consolidation 4. A catheter projects over the liver, possibly representing a subdiaphragmatic drain. Clinical correlation advocated ACT 112: Negative or not required by law. Electronically signed by: Mike Thomas M.D. 07/07/2020 7:01 AM Chest X-Ray 07/08/20 07:00 XR chest 1V portable HISTORY: 79 years-old Male f/u acute respiratory failure COMPARISON: Chest radiograph 07/07/2020 TECHNIQUE: AP view the chest FINDINGS: Cardiac silhouette is enlarged. Endotracheal tube overlies the midline, 3.3 cm superior to the jie. Right IJ central venous catheter distal tip projects over the inferior aspect of the SVC. Pulmonary vascular congestion with interstitial opacities have progressed in the interval. Right greater than left layering pleural effusions and progressed bibasilar densities. A chest tube is again noted projecting over the right lung base. Degenerative changes of the shoulders and spine. IMPRESSION: 1. Lines and tubes as above. 2. Cardiomegaly with progressive pulmonary edema. 3. Layering pleural effusions with worsened bibasilar opacities suggestive of atelectasis. A superimposed pneumonitis considered less likely. ACT 112: Negative or not required by law. The above report was generated using voice recognition software. It may contain grammatical, syntax or spelling errors. Electronically signed by: Michael Macias M.D. 07/08/2020 8:19 AM Chest X-Ray 07/09/20 07:00 XR chest 1V portable CLINICAL HISTORY: f/u COMPARISON STUDY: Chest radiograph July 08, 2020. FINDINGS: Tip of endotracheal tube is 3.6 cm above the jie. Right internal jugular central line remains in place. Lung volumes are diminished. Persistent bibasilar airspace opacities are noted. Interstitial thickening is again noted. Cardiomediastinal silhouette is stable. There is no pneumothorax. There are suspected small bilateral pleural effusions. IMPRESSION: 1. Tip of endotracheal tube 3.6 cm above the jie. 2. Low lung volumes with bibasilar opacities which could reflect consolidation or atelectasis. 3. Persistent pulmonary edema. ACT 112: Negative or not required by law. Electronically signed by: Octavio Castanon M.D. 07/09/2020 8:05 AM Chest X-Ray 07/10/20 07:00 XR chest 1V portable HISTORY: 79 years-old Male f/u up acute respiratory failure COMPARISON: Chest radiograph 07/09/2020 TECHNIQUE: Portable AP view the chest FINDINGS: Cardiac silhouette is enlarged. Endotracheal tube overlies the midline, 3.4 cm superior to the jie. Right IJ central venous catheter distal tip overlies the right atrium. Cardiomegaly. Pulmonary vascular congestion with interstitial coarsening. Low lung volumes. No pneumothorax. Right greater than left layering pleural effusions with bibasilar opacities. Degenerative changes of the shoulders and spine. IMPRESSION: 1. Lines and tubes as above. 2. Cardiomegaly with unchanged pulmonary edema. 3. Layering pleural effusions with unchanged bibasilar opacities. ACT 112: Negative or not required by law. The above report was generated using voice recognition software. It may contain grammatical, syntax or spelling errors. Electronically signed by: Charles Macias M.D. 07/10/2020 8:14 AM KUB X-Ray 07/10/20 09:23 KUB HISTORY: Confirmation of G-tube placement. g tube check w/ contrast COMPARISON: KUB 06/27/2020 FINDINGS: Midline skin jonh of the abdomen with lower abdominal surgical drainage catheter(s). A gastrostomy tube is noted overlying the stomach on the initial images. Subsequent image was obtained after injection of 100 mL Optiray 300 through the gastrostomy tube into the stomach. There is partial opacification of the stomach without contrast extravasation. IMPRESSION: Satisfactory positioning of the gastrostomy tube. ACT 112: Negative or not required by law. The above report was generated using voice recognition software. It may contain grammatical, syntax or spelling errors. Electronically signed by: Charles Macias M.D. 07/10/2020 10:57 AM Medications Administered Fentanyl Citrate (Fentanyl Bolus From Bag) 50 mcg IV Q60M PRN PRN Reason: Pain or Agitation Stop: 07/21/20 02:45 Last Admin: 07/09/20 16:17 Dose: 50 mcg Documented by: [id number] Admin: 07/08/20 16:34 Dose: 50 mcg Documented by: [id number] Admin: 07/08/20 04:30 Dose: 50 mcg Documented by: [id number] Admin: 07/07/20 23:41 Dose: 50 mcg Documented by: [id number] Admin: 07/07/20 19:41 Dose: 50 mcg Documented by: [id number] Admin: 07/07/20 17:30 Dose: 50 mcg Documented by: [id number] Admin: 07/07/20 13:31 Dose: 50 mcg Documented by: [id number] Heparin Sodium (Porcine) (Heparin Sod 5,000 Unit/0.5 Ml Vial) 7,500 units SQ BID YOSSI Stop: 08/07/20 20:59 Last Admin: 07/10/20 08:22 Dose: 7,500 units Documented by: [id number] Admin: 07/09/20 21:14 Dose: 7,500 units Documented by: [id number] Admin: 07/09/20 08:14 Dose: 7,500 units Documented by: [id number] Admin: 07/08/20 20:13 Dose: 7,500 units Documented by: [id number] Sodium Chloride (Nss 1000ml) 1,000 mls @ 30 mls/hr IV .Q24H YOSSI Stop: 08/06/20 02:28 Last Admin: 07/10/20 06:28 Dose: 75 mls/hr Documented by: [id number] Infusion: 07/10/20 06:28 Dose: 75 mls/hr Documented by: [id number] Admin: 07/09/20 17:50 Dose: 75 mls/hr Documented by: [id number] Infusion: 07/09/20 14:34 Dose: 75 mls/hr Documented by: [id number] Admin: 07/09/20 01:14 Dose: 75 mls/hr Documented by: [id number] Infusion: 07/09/20 01:14 Dose: 75 mls/hr Documented by: [id number] Admin: 07/08/20 08:35 Dose: 75 mls/hr Documented by: [id number] Infusion: 07/08/20 08:35 Dose: 75 mls/hr Documented by: [id number] Admin: 07/07/20 20:19 Dose: 75 mls/hr Documented by: [id number] Infusion: 07/07/20 17:14 Dose: 75 mls/hr Documented by: [id number] Infusion: 07/07/20 11:30 Dose: 75 mls/hr Documented by: [id number] Admin: 07/07/20 08:39 Dose: 200 mls/hr Documented by: [id number] Infusion: 07/07/20 08:31 Dose: 200 mls/hr Documented by: [id number] Admin: 07/07/20 03:31 Dose: 200 mls/hr Documented by: [id number] Famotidine 20 mg/ Syringe 5 mls @ 2.5 mls/min IV Q12H YOSSI Stop: 08/06/20 08:59 Last Admin: 07/10/20 08:44 Dose: 2.5 mls/min Documented by: [id number] Admin: 07/09/20 21:15 Dose: 2.5 mls/min Documented by: [id number] Admin: 07/09/20 08:14 Dose: 2.5 mls/min Documented by: [id number] Admin: 07/08/20 20:12 Dose: 2.5 mls/min Documented by: [id number] Admin: 07/08/20 08:37 Dose: 2.5 mls/min Documented by: [id number] Admin: 07/07/20 20:24 Dose: 2.5 mls/min Documented by: [id number] Admin: 07/07/20 08:39 Dose: 2.5 mls/min Documented by: [id number] Midazolam HCl (Versed) 125 mg in 250 mls @ 6 mls/hr IV .[id number] [facility]; Protocol Stop: 08/06/20 02:59 Last Titration: 07/10/20 03:55 Dose: 3 mg/hr, 6 mls/hr Documented by: [id number] Cosigned by: [id number] Titration: 07/10/20 01:07 Dose: 4 mg/hr, 8 mls/hr Documented by: [id number] Cosigned by: [id number] Titration: 07/09/20 23:55 Dose: 5 mg/hr, 10 mls/hr Documented by: [id number] Cosigned by: [id number] Admin: 07/09/20 22:32 Dose: 6 mg/hr, 12 mls/hr Documented by: [id number] Cosigned by: [id number] Titration: 07/09/20 22:32 Dose: 6 mg/hr, 12 mls/hr Documented by: [id number] Cosigned by: [id number] Titration: 07/09/20 18:55 Dose: 6 mg/hr, 12 mls/hr Documented by: [id number] Cosigned by: [id number] Titration: 07/09/20 11:20 Dose: 4 mg/hr, 8 mls/hr Documented by: [id number] Cosigned by: [id number] Titration: 07/09/20 07:16 Dose: 1 mg/hr, 2 mls/hr Documented by: [id number] Cosigned by: [id number] Titration: 07/08/20 18:51 Dose: 1 mg/hr, 2 mls/hr Documented by: [id number] Cosigned by: [id number] Titration: 07/08/20 08:10 Dose: 1 mg/hr, 2 mls/hr Documented by: [id number] Cosigned by: [id number] Titration: 07/08/20 07:09 Dose: 1.5 mg/hr, 3 mls/hr Documented by: [id number] Cosigned by: [id number] Titration: 07/08/20 05:35 Dose: 1.5 mg/hr, 3 mls/hr Documented by: [id number] Cosigned by: [id number] Titration: 07/07/20 19:01 Dose: 1 mg/hr, 2 mls/hr Documented by: [id number] Cosigned by: [id number] Titration: 07/07/20 06:55 Dose: 1 mg/hr, 2 mls/hr Documented by: [id number] Cosigned by: [id number] Admin: 07/07/20 03:32 Dose: 1 mg/hr, 2 mls/hr Documented by: [id number] Cosigned by: [id number] Fentanyl Citrate (Fentanyl Drip) 1,250 mcg in 250 mls @ 20 mls/hr IV .[id number] [facility]; Protocol Stop: 07/21/20 02:59 Last Titration: 07/10/20 07:00 Dose: 100 mcg/hr, 20 mls/hr Documented by: [id number] Cosigned by: [id number] Admin: 07/10/20 05:54 Dose: 100 mcg/hr, 20 mls/hr Documented by: [id number] Cosigned by: [id number] Titration: 07/10/20 05:54 Dose: 100 mcg/hr, 20 mls/hr Documented by: [id number] Cosigned by: [id number] Admin: 07/10/20 03:06 Dose: Not Given Documented by: [id number] Titration: 07/09/20 18:55 Dose: 100 mcg/hr, 20 mls/hr Documented by: [id number] Cosigned by: [id number] Admin: 07/09/20 16:33 Dose: 75 mcg/hr, 15 mls/hr Documented by: [id number] Cosigned by: [id number] Titration: 07/09/20 16:33 Dose: 75 mcg/hr, 15 mls/hr Documented by: [id number] Cosigned by: [id number] Titration: 07/09/20 11:19 Dose: 75 mcg/hr, 15 mls/hr Documented by: [id number] Cosigned by: [id number] Titration: 07/09/20 07:15 Dose: 50 mcg/hr, 10 mls/hr Documented by: [id number] Cosigned by: [id number] Titration: 07/08/20 20:49 Dose: 50 mcg/hr, 10 mls/hr Documented by: [id number] Cosigned by: [id number] Admin: 07/08/20 20:49 Dose: 50 mcg/hr, 10 mls/hr Documented by: [id number] Cosigned by: [id number] Titration: 07/08/20 18:50 Dose: 50 mcg/hr, 10 mls/hr Documented by: [id number] Cosigned by: [id number] Titration: 07/08/20 08:10 Dose: 50 mcg/hr, 10 mls/hr Documented by: [id number] Cosigned by: [id number] Titration: 07/08/20 07:09 Dose: 75 mcg/hr, 15 mls/hr Documented by: [id number] Cosigned by: [id number] Admin: 07/08/20 00:43 Dose: 75 mcg/hr, 15 mls/hr Documented by: [id number] Cosigned by: [id number] Titration: 07/08/20 00:43 Dose: 75 mcg/hr, 15 mls/hr Documented by: [id number] Cosigned by: [id number] Titration: 07/07/20 19:48 Dose: 75 mcg/hr, 15 mls/hr Documented by: [id number] Cosigned by: [id number] Titration: 07/07/20 19:01 Dose: 50 mcg/hr, 10 mls/hr Documented by: [id number] Cosigned by: [id number] Titration: 07/07/20 13:32 Dose: 50 mcg/hr, 10 mls/hr Documented by: [id number] Cosigned by: [id number] Titration: 07/07/20 06:55 Dose: 25 mcg/hr, 5 mls/hr Documented by: [id number] Cosigned by: [id number] Admin: 07/07/20 03:31 Dose: 25 mcg/hr, 5 mls/hr Documented by: [id number] Cosigned by: [id number] Norepinephrine Bitartrate (Levophed/D5w) 32 mg in 250 mls @ 0 mls/hr IV .Q0M [facility]; Protocol Stop: 08/06/20 10:44 Last Titration: 07/09/20 15:00 Dose: 0 mcg/kg/min, 0 mls/hr Documented by: [id number] Titration: 07/09/20 14:00 Dose: 0.02 mcg/kg/min, 1.4 mls/hr Documented by: [id number] Titration: 07/09/20 13:00 Dose: 0.04 mcg/kg/min, 2.8 mls/hr Documented by: [id number] Titration: 07/09/20 12:30 Dose: 0.07 mcg/kg/min, 4.8 mls/hr Documented by: [id number] Titration: 07/09/20 08:30 Dose: 0.09 mcg/kg/min, 6.2 mls/hr Documented by: [id number] Admin: 07/09/20 08:28 Dose: 0.11 mcg/kg/min, 7.6 mls/hr Documented by: [id number] Cosigned by: [id number] Titration: 07/09/20 08:28 Dose: 0.11 mcg/kg/min, 7.6 mls/hr Documented by: [id number] Cosigned by: [id number] Titration: 07/09/20 07:15 Dose: 0.11 mcg/kg/min, 7.6 mls/hr Documented by: [id number] Cosigned by: [id number] Titration: 07/09/20 06:25 Dose: 0.11 mcg/kg/min, 7.6 mls/hr Documented by: [id number] Titration: 07/09/20 06:13 Dose: 0.09 mcg/kg/min, 6.2 mls/hr Documented by: [id number] Titration: 07/09/20 05:53 Dose: 0.08 mcg/kg/min, 5.5 mls/hr Documented by: [id number] Titration: 07/09/20 05:43 Dose: 0.07 mcg/kg/min, 4.8 mls/hr Documented by: [id number] Titration: 07/09/20 05:29 Dose: 0.06 mcg/kg/min, 4.1 mls/hr Documented by: [id number] Titration: 07/09/20 04:59 Dose: 0.08 mcg/kg/min, 5.5 mls/hr Documented by: [id number] Titration: 07/09/20 04:05 Dose: 0.06 mcg/kg/min, 4.1 mls/hr Documented by: [id number] Titration: 07/09/20 03:20 Dose: 0.12 mcg/kg/min, 8.3 mls/hr Documented by: [id number] Titration: 07/09/20 03:15 Dose: 0.1 mcg/kg/min, 6.9 mls/hr Documented by: [id number] Titration: 07/09/20 03:13 Dose: 0.05 mcg/kg/min, 3.4 mls/hr Documented by: [id number] Titration: 07/09/20 02:51 Dose: 0.06 mcg/kg/min, 4.1 mls/hr Documented by: [id number] Titration: 07/09/20 01:37 Dose: 0.07 mcg/kg/min, 4.8 mls/hr Documented by: [id number] Titration: 07/09/20 01:28 Dose: 0.09 mcg/kg/min, 6.2 mls/hr Documented by: [id number] Titration: 07/09/20 00:30 Dose: 0.11 mcg/kg/min, 7.6 mls/hr Documented by: [id number] Titration: 07/09/20 00:25 Dose: 0.09 mcg/kg/min, 6.2 mls/hr Documented by: [id number] Titration: 07/09/20 00:20 Dose: 0.07 mcg/kg/min, 4.8 mls/hr Documented by: [id number] Titration: 07/09/20 00:10 Dose: 0.05 mcg/kg/min, 3.4 mls/hr Documented by: [id number] Titration: 07/08/20 23:50 Dose: 0.07 mcg/kg/min, 4.8 mls/hr Documented by: [id number] Titration: 07/08/20 22:01 Dose: 0.09 mcg/kg/min, 6.2 mls/hr Documented by: [id number] Titration: 07/08/20 21:41 Dose: 0.11 mcg/kg/min, 7.6 mls/hr Documented by: [id number] Titration: 07/08/20 21:23 Dose: 0.13 mcg/kg/min, 9 mls/hr Documented by: [id number] Titration: 07/08/20 21:16 Dose: 0.15 mcg/kg/min, 10.3 mls/hr Documented by: [id number] Titration: 07/08/20 18:49 Dose: 0.17 mcg/kg/min, 11.7 mls/hr Documented by: [id number] Cosigned by: [id number] Titration: 07/08/20 16:35 Dose: 0.17 mcg/kg/min, 11.7 mls/hr Documented by: [id number] Titration: 07/08/20 09:15 Dose: 0.2 mcg/kg/min, 13.8 mls/hr Documented by: [id number] Titration: 07/08/20 09:00 Dose: 0.18 mcg/kg/min, 12.4 mls/hr Documented by: [id number] Titration: 07/08/20 08:45 Dose: 0.16 mcg/kg/min, 11 mls/hr Documented by: [id number] Titration: 07/08/20 08:35 Dose: 0.14 mcg/kg/min, 9.6 mls/hr Documented by: [id number] Admin: 07/08/20 08:33 Dose: 0.12 mcg/kg/min, 8.3 mls/hr Documented by: [id number] Cosigned by: [id number] Titration: 07/08/20 08:33 Dose: 0.12 mcg/kg/min, 8.3 mls/hr Documented by: [id number] Cosigned by: [id number] Titration: 07/08/20 07:09 Dose: 0.12 mcg/kg/min, 8.3 mls/hr Documented by: [id number] Cosigned by: [id number] Titration: 07/08/20 06:11 Dose: 0.12 mcg/kg/min, 8.3 mls/hr Documented by: [id number] Titration: 07/08/20 03:09 Dose: 0.1 mcg/kg/min, 6.9 mls/hr Documented by: [id number] Titration: 07/08/20 02:57 Dose: 0.08 mcg/kg/min, 5.5 mls/hr Documented by: [id number] Titration: 07/08/20 02:21 Dose: 0.1 mcg/kg/min, 6.9 mls/hr Documented by: [id number] Titration: 07/08/20 01:02 Dose: 0.12 mcg/kg/min, 8.3 mls/hr Documented by: [id number] Titration: 07/07/20 23:20 Dose: 0.14 mcg/kg/min, 9.6 mls/hr Documented by: [id number] Titration: 07/07/20 22:09 Dose: 0.16 mcg/kg/min, 11 mls/hr Documented by: [id number] Titration: 07/07/20 21:41 Dose: 0.18 mcg/kg/min, 12.4 mls/hr Documented by: [id number] Titration: 07/07/20 19:01 Dose: 0.2 mcg/kg/min, 13.8 mls/hr Documented by: [id number] Cosigned by: [id number] Titration: 07/07/20 18:35 Dose: 0.2 mcg/kg/min, 13.8 mls/hr Documented by: [id number] Titration: 07/07/20 18:00 Dose: 0.21 mcg/kg/min, 14.5 mls/hr Documented by: [id number] Admin: 07/07/20 11:23 Dose: 0.19 mcg/kg/min, 13.1 mls/hr Documented by: [id number] Cosigned by: [id number] Caspofungin 50 mg/ Sodium (Chloride) 260 mls @ 260 mls/hr IV DAILY [facility] Stop: 07/18/20 08:59 Last Infusion: 07/10/20 09:45 Dose: 0 mls/hr Documented by: [id number] Admin: 07/10/20 08:43 Dose: 260 mls/hr Documented by: [id number] Infusion: 07/09/20 09:43 Dose: 0 mls/hr Documented by: [id number] Admin: 07/09/20 08:12 Dose: 260 mls/hr Documented by: [id number] Infusion: 07/08/20 10:33 Dose: 0 mls/hr Documented by: [id number] Admin: 07/08/20 08:37 Dose: 260 mls/hr Documented by: [id number] Dopamine HCl/Dextrose (Dopamine / D5w) 400 mg in 250 mls @ 58.575 mls/hr IV .Q4H17M [facility]; Protocol Stop: 08/08/20 00:59 Last Titration: 07/10/20 12:28 Dose: 11 mcg/kg/min, 58.6 mls/hr Documented by: [id number] Admin: 07/10/20 11:41 Dose: 10 mcg/kg/min, 53.3 mls/hr Documented by: [id number] Cosigned by: [id number] Titration: 07/10/20 11:26 Dose: 12 mcg/kg/min, 63.9 mls/hr Documented by: [id number] Cosigned by: [id number] Admin: 07/10/20 07:31 Dose: 12 mcg/kg/min, 63.9 mls/hr Documented by: [id number] Cosigned by: [id number] Titration: 07/10/20 07:03 Dose: 12 mcg/kg/min, 63.9 mls/hr Documented by: [id number] Cosigned by: [id number] Titration: 07/10/20 07:02 Dose: 12 mcg/kg/min, 63.9 mls/hr Documented by: [id number] Titration: 07/10/20 05:47 Dose: 12 mcg/kg/min, 63.9 mls/hr Documented by: [id number] Admin: 07/10/20 03:20 Dose: 13 mcg/kg/min, 69.2 mls/hr Documented by: [id number] Cosigned by: [id number] Titration: 07/10/20 03:19 Dose: 11 mcg/kg/min, 58.6 mls/hr Documented by: [id number] Cosigned by: [id number] Titration: 07/10/20 03:07 Dose: 11 mcg/kg/min, 58.6 mls/hr Documented by: [id number] Admin: 07/10/20 03:06 Dose: Not Given Documented by: [id number] Titration: 07/10/20 01:07 Dose: 13 mcg/kg/min, 69.2 mls/hr Documented by: [id number] Admin: 07/09/20 23:33 Dose: 15 mcg/kg/min, 79.9 mls/hr Documented by: [id number] Cosigned by: [id number] Titration: 07/09/20 23:33 Dose: 15 mcg/kg/min, 79.9 mls/hr Documented by: [id number] Cosigned by: [id number] Titration: 07/09/20 20:13 Dose: 15 mcg/kg/min, 79.9 mls/hr Documented by: [id number] Cosigned by: [id number] Admin: 07/09/20 20:13 Dose: 15 mcg/kg/min, 79.9 mls/hr Documented by: [id number] Cosigned by: [id number] Titration: 07/09/20 18:54 Dose: 15 mcg/kg/min, 79.9 mls/hr Documented by: [id number] Cosigned by: [id number] Admin: 07/09/20 16:34 Dose: 15 mcg/kg/min, 79.9 mls/hr Documented by: [id number] Cosigned by: [id number] Titration: 07/09/20 16:34 Dose: 12.5 mcg/kg/min, 66.6 mls/hr Documented by: [id number] Cosigned by: [id number] Admin: 07/09/20 13:20 Dose: 12.5 mcg/kg/min, 66.6 mls/hr Documented by: [id number] Cosigned by: [id number] Titration: 07/09/20 13:20 Dose: 12.5 mcg/kg/min, 66.6 mls/hr Documented by: [id number] Cosigned by: [id number] Titration: 07/09/20 11:19 Dose: 12.5 mcg/kg/min, 66.6 mls/hr Documented by: [id number] Titration: 07/09/20 11:02 Dose: 10 mcg/kg/min, 53.3 mls/hr Documented by: [id number] Titration: 07/09/20 09:20 Dose: 4 mcg/kg/min, 21.3 mls/hr Documented by: [id number] Titration: 07/09/20 08:00 Dose: 2.5 mcg/kg/min, 13.3 mls/hr Documented by: [id number] Titration: 07/09/20 07:16 Dose: 1.5 mcg/kg/min, 8 mls/hr Documented by: [id number] Cosigned by: [id number] Titration: 07/09/20 05:19 Dose: 1.5 mcg/kg/min, 8 mls/hr Documented by: [id number] Titration: 07/09/20 04:00 Dose: 0 mcg/kg/min, 0 mls/hr Documented by: [id number] Admin: 07/09/20 02:59 Dose: 2.5 mcg/kg/min, 13.3 mls/hr Documented by: [id number] Cosigned by: [id number] Meropenem 500 mg/ Syringe 10 mls @ 2 mls/min IV Q8H [facility]; Protocol Stop: 07/19/20 10:29 Last Admin: 07/10/20 10:21 Dose: 2 mls/min Documented by: [id number] Admin: 07/10/20 01:46 Dose: 2 mls/min Documented by: [id number] Admin: 07/09/20 17:50 Dose: 2 mls/min Documented by: [id number] Admin: 07/09/20 11:02 Dose: 2 mls/min Documented by: [id number] Insulin Aspart (Insulin Aspart 100 Units/Ml 3 Ml Pen) 0 units SC Q6 [facility]; Protocol Stop: 08/06/20 13:14 Last Admin: 07/10/20 12:29 Dose: Not Given Documented by: [id number] Admin: 07/10/20 06:26 Dose: Not Given Documented by: [id number] Admin: 07/10/20 00:40 Dose: Not Given Documented by: [id number] Admin: 07/09/20 18:53 Dose: Not Given Documented by: [id number] Cosigned by: [id number] Admin: 07/09/20 12:23 Dose: Not Given Documented by: [id number] Cosigned by: [id number] Admin: 07/09/20 05:51 Dose: Not Given Documented by: [id number] Admin: 07/09/20 00:41 Dose: Not Given Documented by: [id number] Admin: 07/08/20 18:11 Dose: Not Given Documented by: [id number] Admin: 07/08/20 12:17 Dose: Not Given Documented by: [id number] Admin: 07/08/20 05:48 Dose: Not Given Documented by: [id number] Admin: 07/07/20 23:55 Dose: Not Given Documented by: [id number] Admin: 07/07/20 17:55 Dose: Not Given Documented by: [id number] Cosigned by: [id number] Admin: 07/07/20 13:42 Dose: Not Given Documented by: [id number] Cosigned by: [id number] Discontinued Medications Atropine Sulfate (Atropine Sulfate 0.1 Mg/Ml 10ml Syr) 0.5 mg IV NOW STA Stop: 07/09/20 02:55 Last Admin: 07/09/20 03:05 Dose: 0.5 mg Documented by: [id number] Atropine Sulfate (Atropine Sulfate 0.1 Mg/Ml 10ml Syr) 0.5 mg IV ONE ONE Stop: 07/09/20 04:40 Last Admin: 07/09/20 04:40 Dose: 0.5 mg Documented by: [id number] Heparin Sodium (Porcine) (Heparin Sod 5,000 Unit/0.5 Ml Vial) 7,500 units SQ Q8 [facility] Stop: 08/06/20 05:59 Last Admin: 07/08/20 05:46 Dose: 7,500 units Documented by: [id number] Admin: 07/07/20 21:42 Dose: 7,500 units Documented by: [id number] Admin: 07/07/20 13:44 Dose: 7,500 units Documented by: [id number] Admin: 07/07/20 04:58 Dose: 7,500 units Documented by: [id number] Sodium Chloride (Nss 1000ml) 2,000 mls @ 999 mls/hr IV .Q2H1M ONE Stop: 07/06/20 23:05 Last Infusion: 07/07/20 02:50 Dose: 0 mls/hr Documented by: [id number] Admin: 07/06/20 21:36 Dose: 999 mls/hr Documented by: [id number] Piperacillin Sod/Tazobactam Sod (Zosyn) 4.5 gm in 120 mls @ 240 mls/hr IV NOW ONE Stop: 07/06/20 22:07 Last Infusion: 07/06/20 22:29 Dose: 0 mls/hr Documented by: [id number] Admin: 07/06/20 21:54 Dose: 240 mls/hr Documented by: [id number] Norepinephrine Bitartrate (Levophed/D5w) 8 mg in 508 mls @ 117.615 mls/hr IV .Q4H20M [facility]; Protocol Stop: 08/05/20 21:44 Last Titration: 07/07/20 11:30 Dose: 0 mcg/kg/min, 0 mls/hr Documented by: [id number] Titration: 07/07/20 09:06 Dose: 0.19 mcg/kg/min, 106.4 mls/hr Documented by: [id number] Admin: 07/07/20 07:59 Dose: 0.21 mcg/kg/min, 117.6 mls/hr Documented by: [id number] Cosigned by: [id number] Titration: 07/07/20 07:57 Dose: 0.23 mcg/kg/min, 128.8 mls/hr Documented by: [id number] Cosigned by: [id number] Titration: 07/07/20 06:55 Dose: 0.23 mcg/kg/min, 128.8 mls/hr Documented by: [id number] Cosigned by: [id number] Titration: 07/07/20 05:07 Dose: 0.21 mcg/kg/min, 117.6 mls/hr Documented by: [id number] Titration: 07/07/20 03:44 Dose: 0.19 mcg/kg/min, 106.4 mls/hr Documented by: [id number] Admin: 07/07/20 03:33 Dose: 0.17 mcg/kg/min, 95.2 mls/hr Documented by: [id number] Cosigned by: [id number] Titration: 07/07/20 03:33 Dose: 0.15 mcg/kg/min, 84 mls/hr Documented by: [id number] Cosigned by: [id number] Titration: 07/06/20 22:41 Dose: 0.15 mcg/kg/min, 84 mls/hr Documented by: [id number] Titration: 07/06/20 22:28 Dose: 0.12 mcg/kg/min, 67.2 mls/hr Documented by: [id number] Titration: 07/06/20 22:07 Dose: 0.15 mcg/kg/min, 84 mls/hr Documented by: [id number] Titration: 07/06/20 22:00 Dose: 0.1 mcg/kg/min, 56 mls/hr Documented by: [id number] Admin: 07/06/20 21:49 Dose: 0.05 mcg/kg/min, 28 mls/hr Documented by: [id number] Cosigned by: [id number] Piperacillin Sod/Tazobactam (Sod 4.5 gm/ Dextrose) 120 mls @ 28.75 mls/hr IV Q8H [facility]; Protocol Stop: 07/17/20 03:59 Last Infusion: 07/09/20 08:38 Dose: 0 mls/hr Documented by: [id number] Admin: 07/09/20 03:38 Dose: 28.8 mls/hr Documented by: [id number] Infusion: 07/09/20 00:23 Dose: 0 mls/hr Documented by: [id number] Admin: 07/08/20 20:12 Dose: 28.8 mls/hr Documented by: [id number] Infusion: 07/08/20 18:13 Dose: 0 mls/hr Documented by: [id number] Admin: 07/08/20 11:53 Dose: 28.8 mls/hr Documented by: [id number] Infusion: 07/08/20 08:32 Dose: 0 mls/hr Documented by: [id number] Admin: 07/08/20 03:56 Dose: 28.8 mls/hr Documented by: [id number] Infusion: 07/08/20 00:38 Dose: 0 mls/hr Documented by: [id number] Admin: 07/07/20 20:22 Dose: 28.8 mls/hr Documented by: [id number] Infusion: 07/07/20 17:59 Dose: 0 mls/hr Documented by: [id number] Admin: 07/07/20 13:32 Dose: 28.8 mls/hr Documented by: [id number] Infusion: 07/07/20 08:01 Dose: 0 mls/hr Documented by: [id number] Admin: 07/07/20 03:50 Dose: 28.8 mls/hr Documented by: [id number] Potassium Chloride (K Aman / Wtr) 20 meq in 100 mls @ 50 mls/hr IV Q2H [facility] Stop: 07/07/20 11:56 Last Infusion: 07/07/20 14:36 Dose: 0 mls/hr Documented by: [id number] Admin: 07/07/20 11:23 Dose: 50 mls/hr Documented by: [id number] Infusion: 07/07/20 10:38 Dose: 50 mls/hr Documented by: [id number] Admin: 07/07/20 08:38 Dose: 50 mls/hr Documented by: [id number] Infusion: 07/07/20 08:38 Dose: 50 mls/hr Documented by: [id number] Admin: 07/07/20 06:39 Dose: 50 mls/hr Documented by: [id number] Infusion: 07/07/20 06:39 Dose: 50 mls/hr Documented by: [id number] Admin: 07/07/20 04:57 Dose: 50 mls/hr Documented by: [id number] Magnesium Sulfate/Dextrose (Magnesium Sulfate / D5w) 1 gm in 100 mls @ 50 mls/hr IV Q2H [facility] Stop: 07/07/20 07:56 Last Infusion: 07/07/20 08:39 Dose: 0 mls/hr Documented by: [id number] Infusion: 07/07/20 06:55 Dose: 50 mls/hr Documented by: [id number] Admin: 07/07/20 06:38 Dose: 50 mls/hr Documented by: [id number] Infusion: 07/07/20 06:38 Dose: 50 mls/hr Documented by: [id number] Admin: 07/07/20 04:57 Dose: 50 mls/hr Documented by: [id number] Calcium Gluconate 1,000 mg/ (Sodium Chloride) 60 mls @ 240 mls/hr IV NOW ONE Stop: 07/07/20 04:11 Last Infusion: 07/07/20 05:37 Dose: 0 mls/hr Documented by: [id number] Admin: 07/07/20 04:57 Dose: 240 mls/hr Documented by: [id number] Albumin Human (Albumin 25%) 12.5 gm in 50 mls @ 50 mls/hr IV Q1H [facility] Stop: 07/07/20 14:29 Last Infusion: 07/07/20 15:06 Dose: 0 mls/hr Documented by: [id number] Admin: 07/07/20 13:55 Dose: 50 mls/hr Documented by: [id number] Infusion: 07/07/20 13:55 Dose: 50 mls/hr Documented by: [id number] Admin: 07/07/20 13:04 Dose: 50 mls/hr Documented by: [id number] Infusion: 07/07/20 13:04 Dose: 50 mls/hr Documented by: [id number] Admin: 07/07/20 12:16 Dose: 50 mls/hr Documented by: [id number] Infusion: 07/07/20 12:16 Dose: 50 mls/hr Documented by: [id number] Admin: 07/07/20 11:22 Dose: 50 mls/hr Documented by: [id number] Albumin Human (Albumin 25%) 12.5 gm in 50 mls @ 50 mls/hr IV Q1H [facility] Stop: 07/07/20 22:29 Last Infusion: 07/07/20 21:20 Dose: 0 mls/hr Documented by: [id number] Admin: 07/07/20 20:20 Dose: 50 mls/hr Documented by: [id number] Infusion: 07/07/20 20:20 Dose: 50 mls/hr Documented by: [id number] Admin: 07/07/20 19:21 Dose: 50 mls/hr Documented by: [id number] Infusion: 07/07/20 19:21 Dose: 50 mls/hr Documented by: [id number] Admin: 07/07/20 18:37 Dose: 50 mls/hr Documented by: [id number] Infusion: 07/07/20 18:37 Dose: 50 mls/hr Documented by: [id number] Admin: 07/07/20 17:59 Dose: 50 mls/hr Documented by: [id number] Calcium Chloride 1,000 mg/ (Sodium Chloride) 60 mls @ 240 mls/hr IV NOW ONE Stop: 07/07/20 10:59 Last Infusion: 07/07/20 12:11 Dose: 0 mls/hr Documented by: [id number] Admin: 07/07/20 11:21 Dose: 240 mls/hr Documented by: [id number] Caspofungin 70 mg/ Sodium (Chloride) 260 mls @ 260 mls/hr IV NOW STA Stop: 07/07/20 14:16 Last Infusion: 07/07/20 16:08 Dose: 0 mls/hr Documented by: [id number] Admin: 07/07/20 14:54 Dose: 260 mls/hr Documented by: [id number] Potassium Chloride (K Aman / Wtr) 20 meq in 100 mls @ 50 mls/hr IV Q2H [facility] Stop: 07/07/20 22:29 Last Infusion: 07/07/20 23:57 Dose: 0 mls/hr Documented by: [id number] Admin: 07/07/20 21:56 Dose: 50 mls/hr Documented by: [id number] Infusion: 07/07/20 21:55 Dose: 50 mls/hr Documented by: [id number] Admin: 07/07/20 19:55 Dose: 50 mls/hr Documented by: [id number] Albumin Human (Albumin 25%) 12.5 gm in 50 mls @ 50 mls/hr IV Q1H [facility] Stop: 07/08/20 04:44 Last Infusion: 07/08/20 04:58 Dose: 0 mls/hr Documented by: [id number] Admin: 07/08/20 03:58 Dose: 50 mls/hr Documented by: [id number] Infusion: 07/08/20 03:57 Dose: 50 mls/hr Documented by: [id number] Admin: 07/08/20 02:57 Dose: 50 mls/hr Documented by: [id number] Infusion: 07/08/20 02:57 Dose: 50 mls/hr Documented by: [id number] Admin: 07/08/20 02:16 Dose: 50 mls/hr Documented by: [id number] Infusion: 07/08/20 02:16 Dose: 50 mls/hr Documented by: [id number] Admin: 07/08/20 01:21 Dose: 50 mls/hr Documented by: [id number] Potassium Chloride (K Aman / Wtr) 20 meq in 100 mls @ 50 mls/hr IV Q2H [facility] Stop: 07/08/20 12:59 Last Infusion: 07/08/20 13:57 Dose: 0 mls/hr Documented by: [id number] Admin: 07/08/20 10:58 Dose: 50 mls/hr Documented by: [id number] Infusion: 07/08/20 10:33 Dose: 50 mls/hr Documented by: [id number] Admin: 07/08/20 08:33 Dose: 50 mls/hr Documented by: [id number] Infusion: 07/08/20 08:33 Dose: 50 mls/hr Documented by: [id number] Admin: 07/08/20 06:54 Dose: 50 mls/hr Documented by: [id number] Potassium Phosphate 15 mmol/ (Sodium Chloride) 255 mls @ 100 mls/hr IV 0700 [facility] Stop: 07/08/20 12:00 Last Infusion: 07/08/20 11:59 Dose: 0 mls/hr Documented by: [id number] Admin: 07/08/20 08:32 Dose: 100 mls/hr Documented by: [id number] Calcium Chloride 1,000 mg/ (Sodium Chloride) 60 mls @ 240 mls/hr IV 0930 ONE Stop: 07/08/20 09:44 Last Infusion: 07/08/20 11:59 Dose: 0 mls/hr Documented by: [id number] Admin: 07/08/20 11:44 Dose: 240 mls/hr Documented by: [id number] Furosemide 40 mg/ Syringe 4 mls @ 4 mls/min IV 0915 ONE Stop: 07/08/20 09:16 Last Admin: 07/08/20 11:44 Dose: 4 mls/min Documented by: [id number] Vasopressin 20 units/ Sodium (Chloride) 101 mls @ 12.12 mls/hr IV .Q8H20M [facility] Stop: 08/07/20 09:44 Last Admin: 07/10/20 12:30 Dose: Not Given Documented by: [id number] Admin: 07/10/20 07:31 Dose: Not Given Documented by: [id number] Vancomycin HCl 2,750 mg/ (Sodium Chloride) 555 mls @ 180 mls/hr IV NOW STA Stop: 07/08/20 18:49 Last Infusion: 07/08/20 19:40 Dose: 0 mls/hr Documented by: [id number] Admin: 07/08/20 16:35 Dose: 180 mls/hr Documented by: [id number] Vancomycin HCl 1,250 mg/ (Sodium Chloride) 275 mls @ 200 mls/hr IV Q12H [facility] Stop: 07/19/20 05:59 Last Infusion: 07/09/20 06:37 Dose: 0 mls/hr Documented by: [id number] Admin: 07/09/20 05:14 Dose: 200 mls/hr Documented by: [id number] Calcium Chloride 1,000 mg/ (Sodium Chloride) 60 mls @ 240 mls/hr IV NOW STA Stop: 07/09/20 00:59 Last Infusion: 07/09/20 01:13 Dose: 0 mls/hr Documented by: [id number] Admin: 07/09/20 00:58 Dose: 240 mls/hr Documented by: [id number] Potassium Chloride (K Aman / Wtr) 20 meq in 100 mls @ 50 mls/hr IV Q2H [facility] Stop: 07/09/20 08:59 Last Infusion: 07/09/20 09:44 Dose: 0 mls/hr Documented by: [id number] Admin: 07/09/20 07:10 Dose: 50 mls/hr Documented by: [id number] Infusion: 07/09/20 07:09 Dose: 50 mls/hr Documented by: [id number] Admin: 07/09/20 05:09 Dose: 50 mls/hr Documented by: [id number] Infusion: 07/09/20 05:09 Dose: 50 mls/hr Documented by: [id number] Admin: 07/09/20 02:50 Dose: 50 mls/hr Documented by: [id number] Infusion: 07/09/20 02:50 Dose: 50 mls/hr Documented by: [id number] Admin: 07/09/20 01:12 Dose: 50 mls/hr Documented by: [id number] Potassium Chloride (K Aman / Wtr) 20 meq in 100 mls @ 50 mls/hr IV Q2H [facility] Stop: 07/10/20 10:29 Last Infusion: 07/10/20 10:22 Dose: 0 mls/hr Documented by: [id number] Admin: 07/10/20 08:22 Dose: 50 mls/hr Documented by: [id number] Infusion: 07/10/20 08:22 Dose: 50 mls/hr Documented by: [id number] Admin: 07/10/20 06:42 Dose: 50 mls/hr Documented by: [id number] Albumin Human (Albumin 25%) 12.5 gm in 50 mls @ 50 mls/hr IV Q1H [facility] Stop: 07/10/20 08:29 Last Infusion: 07/10/20 08:19 Dose: 0 mls/hr Documented by: [id number] Admin: 07/10/20 07:19 Dose: 50 mls/hr Documented by: [id number] Infusion: 07/10/20 07:19 Dose: 50 mls/hr Documented by: [id number] Admin: 07/10/20 06:27 Dose: 50 mls/hr Documented by: [id number] Insulin Glargine (Insulin Glargine Solostar 100 Units/Ml 3 Ml Pen) 0 units SC DAILY@0600,1800 [facility]; Protocol Stop: 08/06/20 17:59 Last Admin: 07/09/20 05:52 Dose: Not Given Documented by: [id number] Admin: 07/08/20 18:12 Dose: Not Given Documented by: [id number] Admin: 07/08/20 05:49 Dose: Not Given Documented by: [id number] Admin: 07/07/20 17:56 Dose: Not Given Documented by: [id number] Miscellaneous (Stat Iv Infusion Titration Per Protocol) 1 ea N/A NOW STA Stop: 07/06/20 21:39 Last Admin: 07/06/20 21:54 Dose: 1 ea Documented by: [id number] Miscellaneous (Rapid Sequence Induction Bag) Confirm Administered Dose 1 ea .ROUTE .STK-MED ONE Stop: 07/06/20 21:44 Last Admin: 07/06/20 21:49 Dose: 1 ea Documented by: [id number] Miscellaneous (Rapid Sequence Induction Bag) Confirm Administered Dose 1 ea .ROUTE .STK-MED ONE Stop: 07/06/20 21:47 Last Admin: 07/06/20 21:51 Dose: 1 ea Documented by: [id number] Norepinephrine Bitartrate (Norepinephrine/D5w 8 Mg/508 Ml) Confirm Administered Dose 8 mg IV .STK-MED ONE Stop: 07/06/20 21:39 Last Admin: 07/06/20 21:50 Dose: Not Given Documented by: [id number]
[2020-07-10] MEDS: FUROSEMIDE 40 MG in SYRINGE 0 ML IV SCH ×2 (13:52→21:20)
[2020-07-10] MEDS ORDERED: ATROPINE SULFATE 0.1 MG/ML 10ML SYR IV ONE (14:00)
[2020-07-10] MEDS ORDERED: ATROPINE SULFATE 0.1 MG/ML 5ML SYR IV PRN (14:02)
[2020-07-10] MEDS: PEPTAMEN INTENSE VHP 1.0 CAL 1,000 ML BAG GT SCH (14:57)
[2020-07-10] MEDS: TUBE FEEDING WATER FLUSH GT SCH ×3 (16:19→23:41)
[2020-07-10] MEDS: MIDAZOLAM HCL 125 MG/250 ML BAG IV SCH (17:50)
[2020-07-10] MEDS ORDERED: FUROSEMIDE 40 MG/4 ML VIAL IV ONE (21:12)
[2020-07-10 23:05] LABS: Calcium 8.3 mg/dl (8.5-10.1); Creatinine Clr Calc Pharmacy 170.2 ml/min; Est GFR (Non-African American) 98.4; Magnesium 1.5 mg/dl (1.8-2.4); Potassium 2.9 mmol/L (3.5-5.1)
[2020-07-10 23:06] LABS: Phosphorus 2.7 mg/dl (2.5-4.9)
[2020-07-10] MEDS: MAGNESIUM SULFATE / D5W 1 GM/100 ML BAG IV SCH (23:40)
[2020-07-11] MEDS: INSULIN ASPART 100 UNITS/ML 3 ML PEN SC SCH ×4 (00:03→17:51)
[2020-07-11] MEDS: MAGNESIUM SULFATE / D5W 1 GM/100 ML BAG IV SCH ×3 (01:12→05:15)
[2020-07-11] MEDS: POTASSIUM CHLORIDE / WTR 20 MEQ/100 ML PLCT IV SCH ×5 (01:12→15:25)
[2020-07-11] MEDS: DOPamine / D5W 400 MG/250 ML BAG IV SCH ×9 (01:12→22:30)
[2020-07-11] MEDS: MEROPENEM 500 MG in SYRINGE 0 ML IV SCH ×3 (02:11→16:22)
[2020-07-11] MEDS: TUBE FEEDING WATER FLUSH GT SCH ×4 (03:38→16:04)
[2020-07-11 05:15] LABS: Basophils # (auto) 0.02 K/uL (0-0.2); Basophils % (auto) 0.1 %; Eosinophils # (auto) 0.12 K/uL (0-0.5); Eosinophils % (auto) 0.8 %; Hematocrit (blood only) 30.6 % (42-52); Hemoglobin 10.1 g/dL (14.0-18.0); Immature Granulocytes # (auto) 0.65 K/uL (0.00-0.02); Immature Granulocytes % (auto) 4.1 %; Lymphocytes # (auto) 1.57 K/uL (1.2-3.4); Lymphocytes % (auto) 9.9 %; Mean Corpuscular Hemoglobin 29.4 pg (25-34); Monocytes # (auto) 1.65 K/uL (0.11-0.59); Monocytes % (auto) 10.5 %; Neutrophils # (auto) 11.77 K/uL (1.4-6.5); Neutrophils % (auto) 74.6 %; Platelet Count 442 K/uL (130-400); RDW Coefficient of Variation 16.4 % (11.5-14.5); RDW Standard Deviation 53.7 fL (36.4-46.3); Red Blood Count 3.44 M/uL (4.7-6.1); White Blood Count 15.78 K/uL (4.8-10.8)
[2020-07-11 05:39] LABS: BUN Creatinine Ratio 20.9 (10-20); Calcium 7.7 mg/dl (8.5-10.1); Creatinine Clr Calc Pharmacy 170.2 ml/min; Est GFR (Non-African American) 98.4; Magnesium 2.3 mg/dl (1.8-2.4); Phosphorus 2.5 mg/dl (2.5-4.9); Potassium 3.8 mmol/L (3.5-5.1)
[2020-07-11 05:46] LABS: iSTAT Arterial Blood Gas HCO3 30 meg/L (19-24); iSTAT Arterial Blood Gas pCO2 43 mmHg (35-46); iSTAT Arterial Blood Gas pH 7.45 (7.35-7.45); iSTAT Arterial Blood Gas pO2 55 mmHg (80-95); iSTAT Carbon Dioxide 31 mmol/L (24-31)
--- NOTE | 2020-07-11 07:43 | XRay Report ---
XR chest 1V portable HISTORY: 79 years-old Male resp failure acute respiratory failure COMPARISON: Chest radiograph 07/10/2020 TECHNIQUE: Portable AP view of the chest FINDINGS: Endotracheal tube overlies the midline, 4.6 cm superior to the jie. Right IJ central venous cathet er distal tip projects over the expected location of the inferior SVC. No pneumothorax. The lungs are hypoinflated. Mildly decreased pulmonary vascular congestion. Trace left with small to moderate righ t pleural effusions redemonstrated. Right greater left bibasilar opacities. Progressive consolidation of the right lung base. Degenerative changes of the shoulders and spine. Contrast is noted within th e stomach. A catheter projects over the abdominal right upper quadrant. IMPRESSION: 1. Lines and tubes as above. 2. Cardiomegaly with decreased pulmonary vascular congestion. 3. Mildly increased size of the right pleural effusion with right greater than left bibasilar opaciti es. ACT 112: Negative or not required by law. The above report was generated using voice recognition software. It may contain grammatical, syntax o r spelling errors. Electronically signed by: Charles Macias M.D. 07/11/2020 7:42 AM
[2020-07-11] MEDS: VASOPRESSIN 20 UNITS in 0.9 % SODIUM CHLORIDE 100 ML IV SCH ×2 (07:51→07:52)
[2020-07-11] MEDS: fentaNYL DRIP 1,250 MCG/250 ML BAG IV SCH (08:14)
[2020-07-11] MEDS: CASPOFUNGIN 50 MG in SODIUM CHLORIDE 0.9% 250 ML IV SCH (08:16)
[2020-07-11] MEDS: HEPARIN SOD 5,000 UNIT/0.5 ML VIAL SQ SCH (08:17)
[2020-07-11] MEDS: FAMOTIDINE 20 MG in SYRINGE 3 ML IV SCH (08:17)
--- NOTE | 2020-07-11 08:43 | Surgery Progress Note ---
Date of Service July 11, 2020 Assessment & Plan (1) Perforated viscus: POD#4 ex lap, abdominal washout, replacement of dislodged G tube Contrast study performed yesterday showing g-tube is in correct position and no contrast extravasation It is okay to be used for meds/feeds as needed Continue daily dressing changes MAYELIN drains serosang Appreciate bulb sorter and hospitalist services assistance with patient as above. nothing to add surgically. G-tube seems to be functioning ok.... will continue to follow closely. [facility] surgeons covering for weekend if any issues. Admission and Anticipated Discharge Date Admission Date: July 07, 2020 Subjective Patient intubated, unable to obtain subjective history. Per nursing he still remains on a dopamine gtt. TEN at trickle feeds has been started. Blood cultures + for yeast. Physical Exam Physical Exam: intubated Gastrointestinal (Abdomen): Inspection/Auscultation: + abdominal surgical incision (incisions c/d/i) and + abdominal surgical drain present (MAYELIN drains serosang) g tube in place, currently undergoing trickle TEN Results & Data ([facility]) Vital Signs (Past 12 Hours) Vital Signs Temp Pulse Resp BP Pulse Ox 07/11/20 07:15 74 14 93 07/11/20 04:00 37.2 C 78 14 102/63 95 07/11/20 03:15 84 14 96 07/11/20 03:00 37.2 C 75 19 95/56 L 96 07/11/20 02:00 37.2 C 72 110/68 97 07/11/20 01:10 37.2 C 69 114/73 92 07/11/20 01:08 37.2 C 87 72/54 L 89 L 07/11/20 01:00 37.2 C 85 84/60 L 96 07/11/20 00:40 37.2 C 84 84/59 L 95 07/11/20 00:30 37.2 C 85 95 07/11/20 00:00 37.2 C 85 84/59 L 95 07/10/20 23:25 63 15 94 07/10/20 23:23 37.2 C 82 14 93/62 L 92 07/10/20 23:00 37.2 C 84 14 86/60 L 89 L 07/10/20 22:00 37.1 C 86 14 101/66 90 07/10/20 21:24 37.1 C 81 14 100/62 91 07/10/20 21:00 37.1 C 87 14 83/56 L 89 L PG Care Time/CCT Total # of Minutes Spent Total Time Spent with Patient: Total time spent is greater than 50% in coordination of care (as documented) at patient's floor/unit and/or counseling patient: Coding Level of Care Code None Diagnoses Perforated viscus R19.8
--- NOTE | 2020-07-11 08:50 | Cardiology Progress Note ---
Date of Service July 11, 2020 Assessment & Plan (1) Septic shock: (2) Renal failure, acute: (3) Bowel perforation: (4) Respiratory failure: (5) Right bundle branch block: (6) Bradycardia: On telemetry, the patient has had no additional bradycardic events. He is hemodynamically stable with good urine output but still on dopamine. Additional blood cultures are still pending but have been negative for fungus thus far. Echocardiogram yesterday was limited but showed no evidence of endocarditis. Admission and Anticipated Discharge Date Admission Date: July 07, 2020 Subjective Patient continues to be hemodynamically stable. Still on dopamine and intubated with sedation. Review of Systems Review of Systems: Unobtainable due to endotracheal tube Physical Exam Physical Exam: General: no acute distress and stated age Head: normocephalic, no masses, lesions, tenderness or abnormalities Eyes: conjunctiva are pink and non-injected, sclera clear Neck: supple, no adenopathy, no bruits, normal jugular venous pulse, no hepatojugular reflux Chest: normal shape and normal respiratory effort Lungs: clear to auscultation and percussion Cardiac Exam: - regular rate & rhythm, no murmurs gallops or rubs - normal S1, normal S2 Pulses: 2(+) throughout Abdomen: abdomen soft, non-tender, no abnormal masses and no hepatosplenomegaly Musculoskeletal: no gait disturbance, no joint inflammation, no deforming arthritis Extremities: no edema and no cyanosis Neuro: grossly normal exam Results & Data ([facility]) Vital Signs (Past 12 Hours) Vital Signs Temp Pulse Resp BP Pulse Ox 07/11/20 07:15 74 14 93 07/11/20 04:00 37.2 C 78 14 102/63 95 07/11/20 03:15 84 14 96 07/11/20 03:00 37.2 C 75 19 95/56 L 96 07/11/20 02:00 37.2 C 72 110/68 97 07/11/20 01:10 37.2 C 69 114/73 92 07/11/20 01:08 37.2 C 87 72/54 L 89 L 07/11/20 01:00 37.2 C 85 84/60 L 96 07/11/20 00:40 37.2 C 84 84/59 L 95 07/11/20 00:30 37.2 C 85 95 07/11/20 00:00 37.2 C 85 84/59 L 95 07/10/20 23:25 63 15 94 07/10/20 23:23 37.2 C 82 14 93/62 L 92 07/10/20 23:00 37.2 C 84 14 86/60 L 89 L 07/10/20 22:00 37.1 C 86 14 101/66 90 07/10/20 21:24 37.1 C 81 14 100/62 91 07/10/20 21:00 37.1 C 87 14 83/56 L 89 L Laboratory Results Laboratory Results - last 24 hr 07/10/20 07/10/20 07/10/20 11:56 17:51 22:30 WBC RBC Hgb Hct MCV MCH MCHC RDW Std Deviation RDW Coeff of Maximilian Plt Count MPV Immature Gran % (Auto) Neut % (Auto) Lymph % (Auto) [place] % (Auto) Eos % (Auto) Baso % (Auto) Neut # (Auto) Lymph # (Auto) [place] # (Auto) Eos # (Auto) Baso # (Auto) Immature Gran # (Auto) POC pH POC pCO2 POC pO2 POC HCO3 POC Total CO2 POC Base Excess POC ABG O2 Sat Sodium 143 Potassium 2.9 L Chloride 108 H Carbon Dioxide 29 Anion Gap 6.0 BUN 12 Creatinine 0.56 L Est Cr Clr Drug Dosing 170.2 Est GFR ( Amer) 114.0 Est GFR (Non-Af Amer) 98.4 BUN/Creatinine Ratio 22.0 H Glucose 118 H POC Glucose (other) 112 H 119 H Calcium 8.3 L Phosphorus 2.7 Magnesium 1.5 L Specimen Hemolysis 07/10/20 07/11/20 07/11/20 23:59 04:59 04:59 WBC 15.78 H RBC 3.44 L Hgb 10.1 L Hct 30.6 L MCV 89.0 MCH 29.4 MCHC 33.0 RDW Std Deviation 53.7 H RDW Coeff of Maximilian 16.4 H Plt Count 442 H MPV 9.0 Immature Gran % (Auto) 4.1 Neut % (Auto) 74.6 Lymph % (Auto) 9.9 [place] % (Auto) 10.5 Eos % (Auto) 0.8 Baso % (Auto) 0.1 Neut # (Auto) 11.77 H Lymph # (Auto) 1.57 [place] # (Auto) 1.65 H Eos # (Auto) 0.12 Baso # (Auto) 0.02 Immature Gran # (Auto) 0.65 H POC pH POC pCO2 POC pO2 POC HCO3 POC Total CO2 POC Base Excess POC ABG O2 Sat Sodium 141 Potassium 3.8 D Chloride 108 H Carbon Dioxide 30 Anion Gap 3.0 BUN 12 Creatinine 0.56 L Est Cr Clr Drug Dosing 170.2 Est GFR ( Amer) 114.0 Est GFR (Non-Af Amer) 98.4 BUN/Creatinine Ratio 20.9 H Glucose 131 H POC Glucose (other) 125 H Calcium 7.7 L Phosphorus 2.5 Magnesium 2.3 Specimen Hemolysis 07/11/20 07/11/20 05:32 06:15 WBC RBC Hgb Hct MCV MCH MCHC RDW Std Deviation RDW Coeff of Maximilian Plt Count MPV Immature Gran % (Auto) Neut % (Auto) Lymph % (Auto) [place] % (Auto) Eos % (Auto) Baso % (Auto) Neut # (Auto) Lymph # (Auto) [place] # (Auto) Eos # (Auto) Baso # (Auto) Immature Gran # (Auto) POC pH 7.45 POC pCO2 43 POC pO2 55 L POC HCO3 30 H POC Total CO2 31 POC Base Excess 6.0 H POC ABG O2 Sat 89.0 L Sodium Potassium Chloride Carbon Dioxide Anion Gap BUN Creatinine Est Cr Clr Drug Dosing Est GFR ( Amer) Est GFR (Non-Af Amer) BUN/Creatinine Ratio Glucose POC Glucose (other) 133 H Calcium Phosphorus Magnesium Specimen Hemolysis Diagnostic Findings Echocardiogram completed yesterday was a limited study but showed no evidence of endocarditis. Medications Administered Current Inpatient Medications Atropine Sulfate (Atropine Sulfate 0.1 Mg/Ml 5ml Syr) 0.5 mg IV ONE PRN PRN Reason: bradycardia, sustained HR < 40 Stop: 08/09/20 14:01 Fentanyl Citrate (Fentanyl Bolus From Bag) 50 mcg IV Q60M PRN PRN Reason: Pain or Agitation Stop: 07/21/20 02:45 Last Admin: 07/09/20 16:17 Dose: 50 mcg Documented by: Heparin Sodium (Beef Lung) (Heparin 10 Unit/Ml 5 Ml Flush) 5 ml FLUSH PRN PRN PRN Reason: Flush Stop: 08/09/20 20:58 Last Admin: 07/10/20 21:15 Dose: 5 ml Documented by: Heparin Sodium (Porcine) (Heparin Sod 5,000 Unit/0.5 Ml Vial) 7,500 units SQ BID YOSSI Stop: 08/07/20 20:59 Last Admin: 07/11/20 08:17 Dose: 7,500 units Documented by: Sodium Chloride (Nss 1000ml) 1,000 mls @ 30 mls/hr IV .Q24H YOSSI Stop: 08/06/20 02:28 Last Infusion: 07/10/20 21:49 Dose: 30 mls/hr Documented by: Famotidine 20 mg/ Syringe 5 mls @ 2.5 mls/min IV Q12H YOSSI Stop: 08/06/20 08:59 Last Admin: 07/11/20 08:17 Dose: 2.5 mls/min Documented by: Midazolam HCl (Versed) 125 mg in 250 mls @ 2 mls/hr IV .Q96H YOSSI; Protocol Stop: 08/06/20 02:59 Last Titration: 07/11/20 07:02 Dose: 1 mg/hr, 2 mls/hr Documented by: Fentanyl Citrate (Fentanyl Drip) 1,250 mcg in 250 mls @ 20 mls/hr IV .[id number] YOSSI; Protocol Stop: 07/21/20 02:59 Last Admin: 07/11/20 08:14 Dose: 100 mcg/hr, 20 mls/hr Documented by: Norepinephrine Bitartrate (Levophed/D5w) 32 mg in 250 mls @ 0 mls/hr IV .Q0M YOSSI; Protocol Stop: 08/06/20 10:44 Last Titration: 07/11/20 07:02 Dose: 0 mcg/kg/min, 0 mls/hr Documented by: Caspofungin 50 mg/ Sodium (Chloride) 260 mls @ 260 mls/hr IV DAILY YOSSI Stop: 07/18/20 08:59 Last Admin: 07/11/20 08:16 Dose: 260 mls/hr Documented by: Dopamine HCl/Dextrose (Dopamine / D5w) 400 mg in 250 mls @ 69.225 mls/hr IV .Q3H37M YOSSI; Protocol Stop: 08/08/20 00:59 Last Titration: 07/11/20 07:02 Dose: 13 mcg/kg/min, 69.2 mls/hr Documented by: Meropenem 500 mg/ Syringe 10 mls @ 2 mls/min IV Q8H YOSSI; Protocol Stop: 07/19/20 10:29 Last Admin: 07/11/20 02:11 Dose: 2 mls/min Documented by: Furosemide 40 mg/ Syringe 4 mls @ 4 mls/min IV BID17 YOSSI Stop: 08/09/20 12:59 Last Admin: 07/10/20 21:20 Dose: Not Given Documented by: Insulin Aspart (Insulin Aspart 100 Units/Ml 3 Ml Pen) 0 units SC Q6 YOSSI; Protocol Stop: 08/06/20 13:14 Last Admin: 07/11/20 06:19 Dose: 1 units Documented by: Midazolam HCl (Midazolam Bolus From Bag) 2 mg IV Q60M PRN PRN Reason: Sedation Stop: 08/06/20 02:45 Miscellaneous (Icu Electrolyte Replacement Protocol) 1 ea N/A BID@06,18 [facility]; Protocol Stop: 07/18/20 05:59 Miscellaneous Information (Meropenem Consult Acitve) 1 ea N/A UD PRN PRN Reason: Consult Stop: 08/08/20 10:24 Nutritional Formula (Peptamen Intense Vhp 1.0 Ata 1,000 Ml Bag) 1,000 ml GT UD YOSSI; Protocol Stop: 08/09/20 13:44 Last Admin: 07/10/20 14:57 Dose: 1,000 ml Documented by: Sterile Water (Tube Feeding Water Flush) 30 ml GT Q4H YOSSI Stop: 08/09/20 15:59 Last Admin: 07/11/20 03:38 Dose: 30 ml Documented by: (1) Respiratory failure Chronicity: acute Respiratory failure complication: hypoxia and hypercapnia Qualified Code(s): J96.01 - Acute respiratory failure with hypoxia; J96.02 - Acute respiratory failure with hypercapnia
[2020-07-11] MEDS: FUROSEMIDE 40 MG in SYRINGE 0 ML IV SCH ×2 (09:39→16:22)
[2020-07-11] MEDS ORDERED: CALCIUM CHLORIDE 10% 1,000 MG in SODIUM CHLORIDE 0.9% 50 ML IV ONE (10:00)
[2020-07-11] MEDS: MIDAZOLAM HCL 125 MG/250 ML BAG IV SCH (10:54)
--- NOTE | 2020-07-11 10:58 | Critical Care Progress Note ---
Date of Service July 11, 2020 Assessment & Plan (1) Bowel perforation: (2) Septic shock: (3) Anemia: (4) Renal failure, acute: (5) Diastolic CHF, chronic: (6) Obesity hypoventilation syndrome: Impression: 79-year-old male status post exploratory laparotomy in the setting of free intraperitoneal air secondary to dislodgment of gastric tube resulting in peritonitis. He has bacteremia and fungemia and hypoxemic respiratory failure 24 Hour events: Patient continues to require dopamine at moderate to high doses. He has had intermittent episodes of hypotension and transient desaturations but overall is about the same. He is diuresing. Recommendations: NEURO - Currently sedated with Versed and fentanyl. Continue daily sedation break. Patient is not yet appropriate for ventilator weaning trials given his persistent septic shock. CARDIAC/VASCULAR - Severe sepsis with septic shock: The patient remains dependent on dopamine. Appreciate cardiology consultation. His random cortisol was normal. He is volume up and tolerated attempts at diuresis so we will continue Lasix 40 mg twice daily in an effort to try and improve his position on the [place] curve. Prior echocardiogram showed grade 1 diastolic dysfunction. Follow-up transesophageal echocardiogram is deferred unless his cultures remain persistently positive. RESPIRATORY - Stable vent settings AC/14/500/8/0.5. The patient has a history of obesity hypoventilation and is on BiPAP normally. Will use higher PEEP to try and splint airways open. Once his hemodynamics tighten up, may consider SBT. We will plan to extubate to BiPAP. X-ray appears fluid overloaded with an expanding left effusion. No indication for thoracentesis currently. Respiratory alkalosis on blood gas. GI/NUTRITION - Peritonitis secondary to dislodgment of G-tube. Surgically corrected. Contrast injection through the G-tube today demonstrated it to be in the stomach with no evidence of leak. Will continue trophic tube feeding as I doubt the patient will improve significantly without significant improvement in his nutritional status. As his hemodynamics improve, will advance tube feeds to goal. Given the patient's fungal bloodstream infection, is not a candidate for PPN or TPN RENAL/LYTES - Acute renal failure: Serum creatinine normal today. Continue attempts at diuresis as noted above. Electrolytes will continue to be repleted. Acid-base status stable. - Ibanez in place - Strict I&Os. ENDO - Glycemic control per ICU protocol. Continue home Synthroid when oral medications can safely be restarted. HEME - Stable hemoglobin and hematocrit status post transfusion. No evidence of ongoing blood loss. Continue to trend at this point time. Platelet count high consistent with infection ID - ID consultation from Vicente reviewed. 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 Day #4 meropenem and Cancidas. Given the possibility of Enterococcus in the peritoneal fluid, will continue Carbapenem for now. Awaiting speciation of fungus but preliminarily appears to be 2 separate species, 1 albicans and one nonalbicans. We will continue can situs. Anticipate that he will need at least 2 weeks of therapy with antifungals and potentially 7 to 10 days of antibacterial therapy. Ophthalmology exam demonstrated no evidence of endophthalmitis. His surveillance cultures are currently pending. As his surveillance cultures have been negative, will change out his central line and arterial line today as they were placed during periods of likely bacteremia/fungemia LINES/IV ACCESS - PIVs x2 RIGHT IJ CVL RIGHT Radial Art line ET Tube Surgical G tube Ibanez MAYELIN Drain x2 DVT PROPHYLAXIS - Hold w/ recent abdominal surgery SCDs I have personally spent 45 minutes of critical care time in the direct management of this patient. This is a life/limb threatening event. This includes time spent evaluating patient, direct bedside care, chart review, placing orders, interpretation of diagnostic studies, discussion with consultants, patient, and family members, as well as other required patient management activities. This time is exclusive of all separately billable procedures, and teaching time and separate from and in addition to any other critical care service time. Patient is critically ill at this point time with multiorgan system dysfunction. Daughter updated. Discussed case with surgery at bedside. Prognosis for functional recovery is guarded. Daughter has made decision to not pursue CPR, or defibrillation in the event of clinical deterioration which I think is appropriate. We will continue to support in hopes of recovery. Attempted to reach daughter by phone today but no answer. Admission and Anticipated Discharge Date Admission Date: July 07, 2020 Subjective Patient remains intubated and sedated Review of Systems Review of Systems: Unobtainable due to endotracheal tube Physical Exam Eyes: PERRL, conjunctivae normal, anicteric sclerae EOM intact bilaterally ENMT: external ear and nose normal, oropharynx normal Ears: no hearing impairment Neck: trachea midline, no thyromegaly Respiratory: normal respiratory effort Cardiovascular: Rate/Rhythm: regular rate and regular rhythm Heart Sounds: normal S1 and normal S2; no murmur Extremities: + edema Psychiatric: Orientation: alert, oriented x 3 and cooperative Results & Data Results & Data ([facility]) Vital Signs (Past 12 Hours) Vital Signs Diagnostic Findings Echo from 07/10/2020 showed grossly normal valvular dysfunction although the study was technically limited. No obvious evidence of endocarditis. EF of 60 to 65%. Critical Care Results & Data Vital Signs (Past 12 Hours) Vital Signs Temp Pulse Resp BP Pulse Ox 07/11/20 08:45 36.8 C 71 96 07/11/20 08:30 36.8 C 86 97 07/11/20 08:15 36.9 C 72 96 07/11/20 08:00 36.9 C 73 105/66 96 07/11/20 07:45 36.9 C 81 87 L 07/11/20 07:30 36.9 C 72 97 07/11/20 07:15 36.9 C 76 14 92 07/11/20 07:00 37.0 C 76 99/60 L 95 07/11/20 06:45 37.0 C 82 87 L 07/11/20 06:30 37.1 C 78 91 07/11/20 06:26 37.1 C 78 97/63 L 96 07/11/20 06:15 37.1 C 75 97 07/11/20 06:00 37.2 C 90 88/59 L 94 07/11/20 05:50 37.2 C 78 120/52 L 95 07/11/20 05:45 37.2 C 85 07/11/20 05:30 37.2 C 07/11/20 05:15 37.2 C 78 96 07/11/20 05:00 37.2 C 80 100/63 96 07/11/20 04:45 37.2 C 88 96 07/11/20 04:30 37.2 C 74 96 07/11/20 04:26 37.2 C 81 86/56 L 92 07/11/20 04:00 37.2 C 78 14 102/63 95 07/11/20 03:15 84 14 96 07/11/20 03:00 37.2 C 75 19 95/56 L 96 07/11/20 02:00 37.2 C 72 110/68 97 07/11/20 01:10 37.2 C 69 114/73 92 07/11/20 01:08 37.2 C 87 72/54 L 89 L 07/11/20 01:00 37.2 C 85 84/60 L 96 07/11/20 00:40 37.2 C 84 84/59 L 95 07/11/20 00:30 37.2 C 85 95 07/11/20 00:00 37.2 C 85 84/59 L 95 07/10/20 23:25 63 15 94 07/10/20 23:23 37.2 C 82 14 93/62 L 92 07/10/20 23:00 37.2 C 84 14 86/60 L 89 L Lab & Micro Results (Past 24 Hours) RBC 3.44 M/uL (4.7-6.1) L 07/11/20 WBC 15.78 K/uL (4.8-10.8) H 07/11/20 Hgb 10.1 g/dL (14.0-18.0) L 07/11/20 Hct 30.6 % (42-52) L 07/11/20 MCV 89.0 fL (80-100) 07/11/20 MCH 29.4 pg (25-34) 07/11/20 MCHC 33.0 g/dL (32-36) 07/11/20 RDW Standard Deviation 53.7 fL (36.4-46.3) H 07/11/20 RDW Coefficient of Variation 16.4 % (11.5-14.5) H 07/11/20 Plt Count 442 K/uL (130-400) H 07/11/20 MPV 9.0 fL (7.4-10.4) 07/11/20 Neutrophils (%) (Auto) 74.6 % 07/11/20 Lymphocytes (%) (Auto) 9.9 % 07/11/20 Monocytes # (Auto) 1.65 K/uL (0.11-0.59) H 07/11/20 Eosinophils # (Auto) 0.12 K/uL (0-0.5) 07/11/20 Immature Granulocyte % (Auto) 4.1 % 07/11/20 Neutrophils # (Auto) 11.77 K/uL (1.4-6.5) H 07/11/20 Lymphocytes # (Auto) 1.57 K/uL (1.2-3.4) 07/11/20 Monocytes # (Auto) 1.65 K/uL (0.11-0.59) H 07/11/20 Eosinophils # (Auto) 0.12 K/uL (0-0.5) 07/11/20 Basophils # (Auto) 0.02 K/uL (0-0.2) 07/11/20 Immature Granulocyte # (Auto) 0.65 K/uL (0.00-0.02) H 07/11/20 Na 141 mmol/L (136-145) 07/11/20 K 3.8 mmol/L (3.5-5.1) 07/11/20 Cl 108 mmol/L (98-107) H 07/11/20 CO2 30 mmol/L (21-32) 07/11/20 Anion Gap 3.0 (3-11) 07/11/20 BUN 12 mg/dl (7-18) 07/11/20 Creatinine 0.56 mg/dl (0.6-1.4) L 07/11/20 Estimated GFR ( Amer) 114.0 07/11/20 Estimated GFR (Non-Af Amer) 98.4 07/11/20 BUN/Creatinine Ratio 20.9 (10-20) H 07/11/20 Glu 131 mg/dl (70-99) H 07/11/20 Ca 7.7 mg/dl (8.5-10.1) L 07/11/20 Phosphorus Level 2.5 mg/dl (2.5-4.9) 07/11/20 Mg 2.3 mg/dl (1.8-2.4) 07/11/20 04:59 07/11/20 Calcium Level 7.7 mg/dl (8.5-10.1) L 07/11/20 04:59 07/11/20 Microbiology 07/08/20 11:00 Gram Stain - Final Peritoneal Fluid Aerobic and Anaerobic Culture - Preliminary Yeast not Shantell albicans/dub Shantell albicans/dubliniensis 07/07/20 02:43 Aerobic Blood Culture - Preliminary Blood Yeast Anaerobic Blood Culture - Preliminary Yeast not Shantell albicans/dub 07/06/20 21:26 Aerobic Blood Culture - Preliminary Blood Yeast Anaerobic Blood Culture - Preliminary No growth in Anaerobic bottle after 48 hours. 07/09/20 12:09 Aerobic Blood Culture - Preliminary Blood No growth in Aerobic bottle after 24 hours. Anaerobic Blood Culture - Preliminary No growth in Anaerobic bottle after 24 hours. 07/09/20 11:49 Aerobic Blood Culture - Preliminary Blood No growth in Aerobic bottle after 24 hours. Anaerobic Blood Culture - Preliminary No growth in Anaerobic bottle after 24 hours. Diagnostic Findings (Past 24 Hours) KUB X-Ray 07/10/20 09:23 KUB HISTORY: Confirmation of G-tube placement. g tube check w/ contrast COMPARISON: KUB 06/27/2020 FINDINGS: Midline skin jonh of the abdomen with lower abdominal surgical drainage catheter(s). A gastrostomy tube is noted overlying the stomach on the initial images. Subsequent image was obtained after injection of 100 mL Optiray 300 through the gastrostomy tube into the stomach. There is partial opacification of the stomach without contrast extravasation. IMPRESSION: Satisfactory positioning of the gastrostomy tube. ACT 112: Negative or not required by law. The above report was generated using voice recognition software. It may contain grammatical, syntax or spelling errors. Electronically signed by: Charles Macias M.D. 07/10/2020 10:57 AM Chest X-Ray 07/11/20 07:00 XR chest 1V portable HISTORY: 79 years-old Male resp failure acute respiratory failure COMPARISON: Chest radiograph 07/10/2020 TECHNIQUE: Portable AP view of the chest FINDINGS: Endotracheal tube overlies the midline, 4.6 cm superior to the jie. Right IJ central venous catheter distal tip projects over the expected location of the inferior SVC. No pneumothorax. The lungs are hypoinflated. Mildly decreased pulmonary vascular congestion. Trace left with small to moderate right pleural effusions redemonstrated. Right greater left bibasilar opacities. Progressive consolidation of the right lung base. Degenerative changes of the shoulders and spine. Contrast is noted within the stomach. A catheter projects over the abdominal right upper quadrant. IMPRESSION: 1. Lines and tubes as above. 2. Cardiomegaly with decreased pulmonary vascular congestion. 3. Mildly increased size of the right pleural effusion with right greater than left bibasilar opacities. ACT 112: Negative or not required by law. The above report was generated using voice recognition software. It may contain grammatical, syntax or spelling errors. Electronically signed by: Charles Macias M.D. 07/11/2020 7:42 AM I & O Totals 24 Hours 07/10/20 07/11/20 07/12/20 06:59 06:59 06:59 Intake Total 4595.968 / 4617.968 4149.710 / 4149.710 950.933 / 950.933 Output Total 4090 / 4090 5915 / 5915 175 / 175 Balance 505.968 / 527.968 -1765.290 / -1765.290 775.933 / 775.933 Cumulative 07/06/20 20:34 thru 07/11/20 08:52 Intake Total 13824.708 Output Total 77823 Balance 4316.708 RT Ventilator Mngmt (Last Documented) Ventilator Ordered Settings Ventilator Support Mode Assist Control 07/11/20 08:00 Respiratory Rate 14 07/11/20 07:15 Ventilator Tidal Volume 500 07/11/20 08:00 Setting Minute Ventilation 7 07/11/20 07:15 Ventilator Positive Pressure 10 07/08/20 12:00 Support Setting Positive End Expiratory 8 07/11/20 10:49 Pressure Fraction of Inspired Oxygen 50 07/11/20 08:00 Machine Comment Peep changed from 5 cmH2O to 8 07/11/20 10:[address] Damon Ventilator - PT Measurements Respiratory Rate 14 Exhaled Tidal Volume 50 Minute Ventilation 7 Peak Inspiratory Airway 22 Pressure Mean Airway Pressure 9 Plateau Pressure 17 Respiratory Cycle Inspiratory: 1:3.3 Expiratory Ratio Inspiratory Phase Time 1.0 End-Tidal CO2 39 Static Lung Compliance 4.17 Dynamic Lung Compliance 2.94 Normal Static Lung Compliance 16.00 Patient Measurements Comment FIO2 increased to 50%. LATISHA Gonzalez and OKSANA Lynch aware. Coding Level of Care Code Critical Care 1st 30-74 mins Diagnoses Bowel perforation K63.1 Septic shock A41.9; R65.21 Anemia D64.9 Renal failure, acute N17.9 Diastolic CHF, chronic I50.32 Obesity hypoventilation syndrome E66.2 Time Spent (min) 45
[2020-07-11 11:00] LABS: Albumin Level 1.9 gm/dl (3.4-5.0); BUN Creatinine Ratio 22.8 (10-20); Creatinine Clr Calc Pharmacy 186.7 ml/min; Est GFR (African American) 119.5; Est GFR (Non-African American) 103.1; Potassium 3.7 mmol/L (3.5-5.1)
[2020-07-11 11:02] LABS: Albumin Globulin Ratio 0.5 (0.9-2); Bilirubin,Total 0.5 mg/dl (0.2-1); Globulin 3.5 gm/dl (2.5-4.0); Total Protein 5.4 gm/dl (6.4-8.2)
[2020-07-11 11:36] LABS: Magnesium 2.3 mg/dl (1.8-2.4); Phosphorus 2.5 mg/dl (2.5-4.9)
[2020-07-11] MEDS: ICU ELECTROLYTE REPLACEMENT PROTOCOL SCH (12:30)
[2020-07-11] MEDS ORDERED: SODIUM PHOSPHATE 3 MMOL/1 ML INFUSION IV STA (12:35)
--- NOTE | 2020-07-11 12:55 | XRay Report ---
XR chest 1V portable CLINICAL HISTORY: central line placement COMPARISON STUDY: Chest radiograph July 11, 2020 at 6:44 AM. FINDINGS: There is no pneumothorax following placement of a left subclavian central line. Catheter ti p projects over the SVC. Tip of endotracheal tube is 4 cm above the jie. Right internal jugular ce ntral line remains in place. Low lung volumes persist. There is a persistent right pleural effusion w ith right basilar opacity. There is pulmonary vascular congestion. Right lung volume loss is unchange d. Cardiomegaly is again noted. There is contrast within the stomach. IMPRESSION: 1. No pneumothorax placement of a left subclavian central line. 2. Satisfactory positioning of the endotracheal tube. 3. Persistent right pleural effusion with asymmetric right lung airspace opacity and volume loss. 4. Pulmonary vascular congestion with suspected mild pulmonary edema. ACT 112: Negative or not required by law. Electronically signed by: Octavio Castanon M.D. 07/11/2020 12:53 PM
[2020-07-11] MEDS ORDERED: SODIUM PHOSPHATE 15 MMOL in SODIUM CHLORIDE 0.9% 250 ML IV ONE (13:00)
--- NOTE | 2020-07-11 14:14 | Procedure Note ---
Procedure Note Date of Service July 11, 2020 CENTRAL LINE PROCEDURE NOTE: Procedure: Central Line Placement Provider: Beka Damon MD Indication: Central Drug Administration, Poor Venous Access, Multiple Lab Draws Necessary, etc. Anesthesia: 5 mL lidocaine 1% Site: Left subclavian Verbal consent was obtained from the patient's daughter. Patient is intubated sedated and unable to provide written or verbal consent. A time-out was completed verifying correct patient, procedure, site, positioning, and implants(s) or special equipment if applicable. Patients left clavicle both above and below was cleansed and draped in the typical sterile fashion using Chloraprep. Using anatomic landmarks, an 18-gauge needle was used to access the subclavian vein. Good venous blood return was maintained prior to removal of syringe from introducer needle. Using Seldinger Technique, a guide wire was advanced through the introducer needle without resistance. The introducer needle was removed. A small incision was made in penetrating fashion at the guide wire insertion site utilizing an 11 blade scalpel. The dilator was advanced to the vessel without resistance. The dilator was exchanged for the triple lumen catheter which was advanced into the vessel without resistance. The guide wire was removed intact from the catheter without issue. Claves were placed on each catheter tip with confirmation of good blood flow from each lumen. Each port was easily flushed with sterile saline. The catheter was placed at the hub and sutured in place. BioPatch was applied to the catheter and a sterile Tegaderm dressing was applied over the catheter with careful attention to sterility. Patient tolerated procedure well. No immediate complications were met. Post procedure x-ray was completed, placement was appropriate and no pneumothorax was noted. Coding CPT Codes Tubes, Drains, and Vasc Access - Tubes, Drains, and Vasc Access: [id number] Place catheter in vein superior or inferior vena cava ([id number]) [facility] [place]Charges) Tubes, Drains, and Vasc Access Procedure 1: Tubes, Drains, and Vasc Access: [id number] Place catheter in vein superior or inferior vena cava
--- NOTE | 2020-07-11 14:16 | Procedure Note ---
Procedure Note Date of Service July 11, 2020 ARTERIAL LINE PROCEDURE NOTE: Procedure: Arterial Line Placement Provider: Beka Damon MD Indication: Monitoring on Pressors Anesthesia: none Patient is intubated and sedated. He is unable to provide verbal or written consent. Changing of lines was necessary due to fungemia. A time-out was completed verifying correct patient, procedure, site, positioning, and implant(s) or special equipment if applicable. Allens test was performed to ensure adequate perfusion. Patients left wrist was prepped and draped in the usual sterile fashion. Ultrasound guidance was used to aid needle placement. A 20g Arrow arterial line was introduced into the left radial artery. Catheter was threaded, and the needle was removed with appropriate blood return. Good waveform was observed. The patient tolerated the procedure well. Blood Loss: Minimal Complications: None Coding CPT Codes Tubes, Drains, and Vasc Access - Tubes, Drains, and Vasc Access: [id number] Insertion Catheter, Artery ([id number]) Tubes, Drains, and Vasc Access - Tubes, Drains, and Vasc Access: [id number] Ultrasound Guidance For Vascular ([id number]) [facility] [place] Procedure Codes (Charges) Tubes, Drains, and Vasc Access Procedure 1: Tubes, Drains, and Vasc Access: [id number] Insertion Catheter, Artery Procedure 2: Tubes, Drains, and Vasc Access: [id number] Ultrasound Guidance For Vascular
--- NOTE | 2020-07-11 15:26 | Hospitalist Progress Note ---
Date of Service July 11, 2020 Assessment & Plan (1) Septic shock: Initial procedure 06/26 for recurrent sigmoid volvulus with exp laparotomy, sigmoidectomy and gastrostomy by Dr. Ware Represented 07/07 with unresponsiveness, abdominal pain, severe pain. S/P Exp Laparotomy on 07/07 setting of free intraperitoneal air with replacement of gastric tube and drains requiring close hemodynamic monitoring in setting of severe sepsis and now fungemia Patient remains on dopamine for hemodynamic support in the ICU. (2) Bowel perforation: viscus rupture with merrem on board. (3) Fungemia: Caspofungin. Continue current sedation with mechanical ventilation and pressor support with dopamine Patient remains on IV meropenem and capsafungin mookie Zhang ID Consult - will defer antibiotic management to poultry vaccinator repeat blood cultures pending from 07/09, if persistent bacteremia cardiology recommending ANASTASIA (4) Bradycardia: Dopamine drip (5) Diastolic CHF, chronic: Lasix (6) COPD (chronic obstructive pulmonary disease): chronic stable (7) Obesity hypoventilation syndrome: (8) Anemia: 2/2 acute blood loss and multiple comorbidities/phlebotomy H&H 9.8 and 29.9 Patient received 1 unit PRBC on 07/08 in setting of hemoglobin drop to 7.4 Continue to monitor H&H Patient has had significant output cumulatively from MAYELIN drain #1 and #2 (9) Post-operative state: (10) DVT prophylaxis: SQ Heparin Dispo: remains in ICU, will need rehab when recovered. Conditional Code--no shocks or compressions DO Tristan Roesnthal Hospitalist Admission and Anticipated Discharge Date Admission Date: July 07, 2020 Subjective 79-year-old man readmitted for complication of recent surgery. Currently has a perforated viscus and is status post exploratory laparotomy with repair of gastrostomy, replacement of gastrostomy tube and abdominal washout by Dr. Damon on 07/06. He remains intubated and sedated in the ICU on dopamine for bradycardia. Review of systems therefore cannot be obtained. Review of Systems Review of Systems: All systems reviewed & are unremarkable except as noted in Subjective Physical Exam Physical Exam: CONSTITUTIONAL: obese, vitals as above, intubated and sedated EYES: PERRL, normal conjunctivae ENT: external ear and nose normal, ETT in place RESPIRATORY: upper airway sounds obscuring auscultation, however, mostly clear with good airflow throughout,no wheezes or rales. CARDIOVASCULAR: regular rate and rhythm, S1 and 2 heard without murmurs, gallops or rubs, no JVD, no peripheral edema GASTROINTESTINAL: soft, surgical wound covered with dressing that is c/d/i MUSCULOSKELETAL: strength 5/5 throughout, head is normocephalic and atraumatic, neck supple, normal palpation of chest wall without tenderness SKIN: warm and dry NEUROLOGIC: sedated, limited exam Results & Data Results & Data ([facility]) Vital Signs (Past 12 Hours) Vital Signs Temp Pulse Resp BP Pulse Ox 07/11/20 11:15 83 14 96 07/11/20 08:45 36.8 C 71 96 07/11/20 08:30 36.8 C 86 97 07/11/20 08:15 36.9 C 72 96 07/11/20 08:00 36.9 C 73 105/66 96 07/11/20 07:45 36.9 C 81 87 L 07/11/20 07:30 36.9 C 72 97 07/11/20 07:15 36.9 C 76 14 92 07/11/20 07:00 37.0 C 76 99/60 L 95 07/11/20 06:45 37.0 C 82 87 L 07/11/20 06:30 37.1 C 78 91 07/11/20 06:26 37.1 C 78 97/63 L 96 07/11/20 06:15 37.1 C 75 97 07/11/20 06:00 37.2 C 90 88/59 L 94 07/11/20 05:50 37.2 C 78 120/52 L 95 07/11/20 05:45 37.2 C 85 07/11/20 05:30 37.2 C 07/11/20 05:15 37.2 C 78 96 07/11/20 05:00 37.2 C 80 100/63 96 07/11/20 04:45 37.2 C 88 96 07/11/20 04:30 37.2 C 74 96 07/11/20 04:26 37.2 C 81 86/56 L 92 07/11/20 04:00 37.2 C 78 14 102/63 95 Laboratory Results Short CBC 07/11/20 Range/Units 04:59 WBC 15.78 H (4.8-10.8) K/uL Hgb 10.1 L (14.0-18.0) g/dL Hct 30.6 L (42-52) % Plt Count 442 H (130-400) K/uL BMP 07/10/20 07/11/20 07/11/20 22:30 04:59 08:29 Sodium 143 141 Cancelled Potassium 2.9 L 3.8 D Cancelled Chloride 108 H 108 H Cancelled Carbon Dioxide 29 30 Cancelled BUN 12 12 Cancelled Creatinine 0.56 L 0.56 L Cancelled Glucose 118 H 131 H Cancelled Calcium 8.3 L 7.7 L Cancelled 07/11/20 10:24 Sodium 140 Potassium 3.7 Chloride 107 Carbon Dioxide 28 BUN 11 Creatinine 0.50 L Glucose 132 H Calcium 8.0 L Liver Function 07/11/20 07/11/20 Range/Units 08:29 10:24 Total Bilirubin Cancelled 0.5 AST Cancelled 12 L ALT Cancelled 17 Alkaline Phosphatase Cancelled 94 Albumin Cancelled 1.9 L Medications Administered Current Inpatient Medications Atropine Sulfate (Atropine Sulfate 0.1 Mg/Ml 5ml Syr) 0.5 mg IV ONE PRN PRN Reason: bradycardia, sustained HR < 40 Stop: 08/09/20 14:01 Fentanyl Citrate (Fentanyl Bolus From Bag) 50 mcg IV Q60M PRN PRN Reason: Pain or Agitation Stop: 07/21/20 02:45 Last Admin: 07/09/20 16:17 Dose: 50 mcg Documented by: Heparin Sodium (Beef Lung) (Heparin 10 Unit/Ml 5 Ml Flush) 5 ml FLUSH PRN PRN PRN Reason: Flush Stop: 08/09/20 20:58 Last Admin: 07/10/20 21:15 Dose: 5 ml Documented by: Heparin Sodium (Porcine) (Heparin Sod 5,000 Unit/0.5 Ml Vial) 7,500 units SQ BID [facility] Stop: 08/07/20 20:59 Last Admin: 07/11/20 08:17 Dose: 7,500 units Documented by: Sodium Chloride (Nss 1000ml) 1,000 mls @ 30 mls/hr IV .Q24H [facility] Stop: 08/06/20 02:28 Last Infusion: 07/10/20 21:49 Dose: 30 mls/hr Documented by: Famotidine 20 mg/ Syringe 5 mls @ 2.5 mls/min IV Q12H [facility] Stop: 08/06/20 08:59 Last Admin: 07/11/20 08:17 Dose: 2.5 mls/min Documented by: Midazolam HCl (Versed) 125 mg in 250 mls @ 2 mls/hr IV .Q96H [facility]; Protocol Stop: 08/06/20 02:59 Last Admin: 07/11/20 10:54 Dose: Not Given Documented by: Fentanyl Citrate (Fentanyl Drip) 1,250 mcg in 250 mls @ 20 mls/hr IV .[id number] [facility]; Protocol Stop: 07/21/20 02:59 Last Admin: 07/11/20 08:14 Dose: 100 mcg/hr, 20 mls/hr Documented by: Norepinephrine Bitartrate (Levophed/D5w) 32 mg in 250 mls @ 0 mls/hr IV .Q0M [facility]; Protocol Stop: 08/06/20 10:44 Last Titration: 07/11/20 07:02 Dose: 0 mcg/kg/min, 0 mls/hr Documented by: Caspofungin 50 mg/ Sodium (Chloride) 260 mls @ 260 mls/hr IV DAILY [facility] Stop: 07/18/20 08:59 Last Infusion: 07/11/20 08:52 Dose: Infused Documented by: Dopamine HCl/Dextrose (Dopamine / D5w) 400 mg in 250 mls @ 69.225 mls/hr IV .Q3H37M [facility]; Protocol Stop: 08/08/20 00:59 Last Admin: 07/11/20 13:14 Dose: 13 mcg/kg/min, 69.2 mls/hr Documented by: Furosemide 40 mg/ Syringe 4 mls @ 4 mls/min IV BID17 [facility] Stop: 08/09/20 12:59 Last Admin: 07/11/20 09:39 Dose: 4 mls/min Documented by: Meropenem 500 mg/ Syringe 10 mls @ 2 mls/min IV Q6H [facility]; Protocol Stop: 07/21/20 15:59 Potassium Chloride (K Aman / Wtr) 20 meq in 100 mls @ 50 mls/hr IV Q2H [facility] Stop: 07/11/20 16:59 Last Admin: 07/11/20 15:25 Dose: 50 mls/hr Documented by: Sodium Phosphate 15 mmol/ (Sodium Chloride) 255 mls @ 88 mls/hr IV ONE ONE Stop: 07/11/20 15:53 Last Admin: 07/11/20 13:15 Dose: 88 mls/hr Documented by: Insulin Aspart (Insulin Aspart 100 Units/Ml 3 Ml Pen) 0 units SC Q6 [facility]; Protocol Stop: 08/06/20 13:14 Last Admin: 07/11/20 12:54 Dose: 1 units Documented by: Midazolam HCl (Midazolam Bolus From Bag) 2 mg IV Q60M PRN PRN Reason: Sedation Stop: 08/06/20 02:45 Miscellaneous (Icu Electrolyte Replacement Protocol) 1 ea N/A BID@,18 [facility]; Protocol Stop: 07/18/20 05:59 Miscellaneous Information (Meropenem Consult Acitve) 1 ea N/A UD PRN PRN Reason: Consult Stop: 08/08/20 10:24 Nutritional Formula (Peptamen Intense Vhp 1.0 Ata 1,000 Ml Bag) 1,000 ml GT UD [facility]; Protocol Stop: 08/09/20 13:44 Last Admin: 07/10/20 14:57 Dose: 1,000 ml Documented by: Sterile Water (Tube Feeding Water Flush) 30 ml GT Q4H [facility] Stop: 08/09/20 15:59 Last Admin: 07/11/20 13:49 Dose: 30 ml Documented by:
[2020-07-12] MEDS: DOPamine / D5W 400 MG/250 ML BAG IV SCH ×12 (01:24→23:06)
[2020-07-12 04:29] LABS: Hematocrit (blood only) 32.1 % (42-52); Hemoglobin 10.6 g/dL (14.0-18.0); Mean Corpuscular Hemoglobin 29.7 pg (25-34); Mean Corpuscular Volume 89.9 fL (80-100); Mean Platelet Volume 8.8 fL (7.4-10.4); Platelet Count 471 K/uL (130-400); RDW Coefficient of Variation 16.1 % (11.5-14.5); RDW Standard Deviation 52.6 fL (36.4-46.3); Red Blood Count 3.57 M/uL (4.7-6.1); White Blood Count 16.15 K/uL (4.8-10.8)
[2020-07-12 04:46] LABS: BUN Creatinine Ratio 22.9 (10-20); Creatinine Clr Calc Pharmacy 190.5 ml/min; Est GFR (African American) 120.5; Est GFR (Non-African American) 103.9; Phosphorus 2.8 mg/dl (2.5-4.9); Potassium 3.3 mmol/L (3.5-5.1)
[2020-07-12 05:16] LABS: Basophils # (auto) 0.03 K/uL (0-0.2); Basophils % (auto) 0.2 %; Eosinophils # (auto) 0.11 K/uL (0-0.5); Eosinophils % (auto) 0.7 %; Immature Granulocytes # (auto) 0.93 K/uL (0.00-0.02); Immature Granulocytes % (auto) 5.8 %; Lymphocytes # (auto) 2.07 K/uL (1.2-3.4); Lymphocytes % (auto) 12.8 %; Monocytes % (auto) 11.1 %; Neutrophils # (auto) 11.21 K/uL (1.4-6.5); Neutrophils % (auto) 69.4 %; RBC Morphology Unremarkable
[2020-07-12 05:45] LABS: iSTAT Arterial Blood Gas HCO3 30 meg/L (19-24); iSTAT Arterial Blood Gas pCO2 43 mmHg (35-46); iSTAT Arterial Blood Gas pH 7.45 (7.35-7.45); iSTAT Arterial Blood Gas pO2 51 mmHg (80-95); iSTAT Carbon Dioxide 31 mmol/L (24-31)
[2020-07-12] MEDS ORDERED: POTASSIUM CHLORIDE 20 MEQ/15 ML UDC NG SCH ×2 (07:00→07:30)
[2020-07-12] MEDS: ICU ELECTROLYTE REPLACEMENT PROTOCOL SCH ×3 (07:15→17:22)
[2020-07-12] MEDS: MEROPENEM 500 MG in SYRINGE 0 ML IV SCH ×5 (07:17→20:34)
[2020-07-12] MEDS: HEPARIN SOD 5,000 UNIT/0.5 ML VIAL SQ SCH ×3 (07:17→20:35)
[2020-07-12] MEDS: FAMOTIDINE 20 MG in SYRINGE 3 ML IV SCH ×3 (07:18→20:34)
[2020-07-12] MEDS: INSULIN ASPART 100 UNITS/ML 3 ML PEN SC SCH ×4 (07:30→17:22)
[2020-07-12] MEDS: TUBE FEEDING WATER FLUSH GT SCH ×6 (07:33→17:02)
--- NOTE | 2020-07-12 07:37 | Progress Note ---
Date of Service Patient remains intubated and sedated, feeding 10 ml/hour , tolerated it, WBC 16,000, no fever, pt's daughter at bedside. July 12, 2020 Assessment & Plan Admission and Anticipated Discharge Date Admission Date: July 07, 2020 Supervising Physician Co-Signing Physician Notes Patient seen and examined by me, care coordinated with Eufemia Liu PA-C, please refer to note above for further detail. 79-year-old male, with recent history of sigmoid volvulus, underwent surgical procedure on June 26, then presented with sepsis several days later. Underwent ex lap with surgical team, gastric tube was found dislodged. Currently patient is in ICU, intubated, sedated, on dopamine for bradycardia and hypotension. On broad spectrum IV Abx and also on caspofungin for fungemia. Patient seen in room 111 in ICU. He is intubated and sedated. Rhonchorous breath sounds noted. Heart sounds regular. Abdomen obese, soft somewhat distended, significant horizontal scar at the left lower abdomen noted, +gastric tube. There is lower extremity edema 2+ pitting. Currently patient is in the care of ICU and surgical team. Surgical team will continue to follow. Current events reviewed, notes from cardiology and ID reviewed as well. MD Scot 07/12/2020 7:42AM Dr. Salguero (1) Perforated viscus: POD#5 ex lap, abdominal washout, replacement of dislodged G tube Contrast study performed on 07/10/2020 showing g-tube is in correct position and no contrast extravasation feeding 10ml/hour, slow increase feeding, if tolerated it, continue iv antibiotic, repeat labs tomorrow morning, Continue daily dressing changes MAYELIN drains serosang will F/U Appreciate cap parts cutter and hospitalist services assistance with patient Subjective Patient remains intubated and sedated Physical Exam Constitutional: WD/WN, vitals as above on vent Neck: trachea midline, no thyromegaly Respiratory: normal respiratory effort, lungs clear to auscultation Cardiovascular: RRR, no murmur, no edema Gastrointestinal (Abdomen): Percussion/Palpation: abdomen soft no distend, no redness on incision site, MAYELIN drains serosang Results & Data ([facility]) Vital Signs (Past 12 Hours) Vital Signs Temp Pulse Resp BP Pulse Ox 07/12/20 04:00 79 103/55 L 07/12/20 03:35 79 14 97 07/12/20 00:00 69 07/11/20 23:08 69 15 98 07/11/20 22:45 36.9 C 72 98 07/11/20 22:30 36.9 C 84 98 07/11/20 22:15 36.9 C 74 98 07/11/20 22:00 36.9 C 75 108/69 97 07/11/20 21:45 36.9 C 80 98 07/11/20 21:30 36.9 C 69 98 07/11/20 21:15 36.8 C 72 97 07/11/20 21:00 36.8 C 74 111/72 97 07/11/20 20:45 36.8 C 71 97 07/11/20 20:30 36.8 C 75 97 07/11/20 20:15 36.8 C 72 97 07/11/20 20:00 36.8 C 81 115/81 97 07/11/20 19:45 36.8 C 72 97 Laboratory Results Abnormal lab results 07/11/20 07/11/20 07/11/20 Range/Units 10:24 12:54 17:50 WBC (4.8-10.8) K/uL RBC (4.7-6.1) M/uL Hgb (14.0-18.0) g/dL Hct (42-52) % RDW Std Deviation (36.4-46.3) fL RDW Coeff of Maximilian (11.5-14.5) % Plt Count (130-400) K/uL Neut # (Auto) (1.4-6.5) K/uL [place] # (Auto) (0.11-0.59) K/uL Immature Gran # (Auto) (0.00-0.02) K/uL POC pO2 (80-95) mmHg POC HCO3 (19-24) sreedhar/L POC Base Excess (-9-1.8) sreedhar/L POC ABG O2 Sat (90-95) % Potassium (3.5-5.1) mmol/L Carbon Dioxide (21-32) mmol/L Anion Gap (3-11) Creatinine 0.50 L (0.6-1.4) mg/dl BUN/Creatinine Ratio 22.8 H (10-20) Glucose 132 H (70-99) mg/dl POC Glucose (other) 128 H 134 H (70-99) mg/dl Calcium 8.0 L (8.5-10.1) mg/dl AST 12 L (15-37) U/L Total Protein 5.4 L (6.4-8.2) gm/dl Albumin 1.9 L (3.4-5.0) gm/dl Albumin/Globulin Ratio 0.5 L (0.9-2) 07/12/20 07/12/20 07/12/20 Range/Units 04:13 04:13 05:31 WBC 16.15 H (4.8-10.8) K/uL RBC 3.57 L (4.7-6.1) M/uL Hgb 10.6 L (14.0-18.0) g/dL Hct 32.1 L (42-52) % RDW Std Deviation 52.6 H (36.4-46.3) fL RDW Coeff of Maximilian 16.1 H (11.5-14.5) % Plt Count 471 H (130-400) K/uL Neut # (Auto) 11.21 H (1.4-6.5) K/uL [place] # (Auto) 1.80 H (0.11-0.59) K/uL Immature Gran # (Auto) 0.93 H (0.00-0.02) K/uL POC pO2 51 L (80-95) mmHg POC HCO3 30 H (19-24) sreedhar/L POC Base Excess 5.0 H (-9-1.8) sreedhar/L POC ABG O2 Sat 87.0 L (90-95) % Potassium 3.3 L (3.5-5.1) mmol/L Carbon Dioxide 33 H (21-32) mmol/L Anion Gap 2.0 L (3-11) Creatinine 0.49 L (0.6-1.4) mg/dl BUN/Creatinine Ratio 22.9 H (10-20) Glucose 131 H (70-99) mg/dl POC Glucose (other) (70-99) mg/dl Calcium 8.0 L (8.5-10.1) mg/dl AST (15-37) U/L Total Protein (6.4-8.2) gm/dl Albumin (3.4-5.0) gm/dl Albumin/Globulin Ratio (0.9-2)
[2020-07-12] MEDS: MIDAZOLAM HCL 125 MG/250 ML BAG IV SCH (07:50)
[2020-07-12] MEDS: fentaNYL DRIP 1,250 MCG/250 ML BAG IV SCH ×3 (07:57→15:55)
[2020-07-12] MEDS: POTASSIUM CHLORIDE / WTR 20 MEQ/100 ML PLCT IV SCH ×6 (08:04→23:44)
--- NOTE | 2020-07-12 08:31 | XRay Report ---
XR chest 1V portable CLINICAL HISTORY: Respiratory failure. COMPARISON STUDY: Chest radiograph July 11, 2020. FINDINGS: Tip of endotracheal tube is 3.6 cm above the jie. Left subclavian central line is in alexandre ce. Right internal jugular central line has been removed. Lung volumes are significantly diminished. Lung aeration has diminished. There is no pneumothorax Bilateral airspace opacities and interstitial thickening or greater within the right lung. A right pleural effusion is noted. Contrast within the s tomach is noted. Postoperative findings within the abdomen are partially imaged on this exam. IMPRESSION: 1. Satisfactory positioning of lines and tubes. 2. Low lung volumes with bilateral airspace opacities and interstitial thickening. Decrease in lung a eration since prior exam. 3. Elevation of the right hemidiaphragm with right pleural effusion. No pneumothorax. ACT 112: Negative or not required by law. Electronically signed by: Octavio Castanon M.D. 07/12/2020 8:30 AM
[2020-07-12] MEDS: CASPOFUNGIN 50 MG in SODIUM CHLORIDE 0.9% 250 ML IV SCH (09:09)
[2020-07-12] MEDS: FUROSEMIDE 40 MG in SYRINGE 0 ML IV SCH ×2 (09:36→17:21)
--- NOTE | 2020-07-12 09:42 | Cardiology Progress Note ---
Date of Service July 12, 2020 Assessment & Plan (1) Septic shock: (2) Renal failure, acute: (3) Bowel perforation: (4) Respiratory failure: (5) Right bundle branch block: (6) Bradycardia: Most recent bradycardia noted on telemetry was on 07/09/20. Telemetry reveals SR in the 70s this am with occasional PVCs. Remains on dopamine 17 mcg/ kg/min for HR and BP support. Agree with furosemide 40 mg IV BID. No growth on repeat cultures obtained 07/09 thus far, remains on Caspofungin. Admission and Anticipated Discharge Date Admission Date: July 07, 2020 Subjective Mr Jackson is seen in cardiology follow up. He remains on sedation with low dose of fentanyl. He remains on the ventilator with FiO2 =50%. Review of Systems Review of Systems: Unobtainable due to endotracheal tube Physical Exam Physical Exam: Temp Pulse Resp BP Pulse Ox 36.9 C 81 14 103/55 L 95 07/11/20 22:45 07/12/20 07:35 07/12/20 07:35 07/12/20 04:00 07/12/20 07:35 Constitutional: + mechanically ventilated Respiratory: + paradoxical thoraco-abdominal movement Auscultation: + diminished lung sounds Cardiovascular: RRR, no murmur, no edema Gastrointestinal (Abdomen): Incision intact, no drainage or redness Results & Data ([facility]) Vital Signs (Past 12 Hours) Vital Signs Temp Pulse Resp BP Pulse Ox 07/12/20 07:35 81 14 95 07/12/20 04:00 79 103/55 L 07/12/20 03:35 79 14 97 07/12/20 00:00 69 07/11/20 23:08 69 15 98 07/11/20 22:45 36.9 C 72 98 07/11/20 22:30 36.9 C 84 98 07/11/20 22:15 36.9 C 74 98 07/11/20 22:00 36.9 C 75 108/69 97 07/11/20 21:45 36.9 C 80 98 Laboratory Results Cardiac Enzymes 07/11/20 07/11/20 Range/Units 08:29 10:24 AST Cancelled 12 L CBC 07/12/20 Range/Units 04:13 WBC 16.15 H (4.8-10.8) K/uL RBC 3.57 L (4.7-6.1) M/uL Hgb 10.6 L (14.0-18.0) g/dL Hct 32.1 L (42-52) % Plt Count 471 H (130-400) K/uL Neut # (Auto) 11.21 H (1.4-6.5) K/uL Lymph # (Auto) 2.07 (1.2-3.4) K/uL [place] # (Auto) 1.80 H (0.11-0.59) K/uL Eos # (Auto) 0.11 (0-0.5) K/uL Baso # (Auto) 0.03 (0-0.2) K/uL Comprehensive Metabolic Panel 07/11/20 07/11/20 07/12/20 Range/Units 08:29 10:24 04:13 Sodium Cancelled 140 138 Potassium Cancelled 3.7 3.3 L Chloride Cancelled 107 103 Carbon Dioxide Cancelled 28 33 H BUN Cancelled 11 11 Creatinine Cancelled 0.50 L 0.49 L Glucose Cancelled 132 H 131 H Calcium Cancelled 8.0 L 8.0 L AST Cancelled 12 L ALT Cancelled 17 Alkaline Phosphatase Cancelled 94 Total Protein Cancelled 5.4 L Albumin Cancelled 1.9 L Intake and Output 07/11/20 07/12/20 07/12/20 22:59 06:59 14:59 Intake Total 1150.031 / 2942.650 464.752 / 2942.650 968.875 / 968.875 Output Total 1345 / 5425 2450 / 5425 405 / 405 Balance -194.969 / -2482.350 -1985.248 / -2482.350 563.875 / 563.875 Intake: IV 1150.031 / 2942.650 464.752 / 2942.650 968.875 / 968.875 DOPamine / D5W 400 mg In 250 ml 691.364 / 1656.116 464.752 / 1656.116 233.042 / 233.042 @ 15 MCG/KG/MIN 79.875 mls/hr IV .Q3H8M [facility] Rx#:[id number] Norepinephrine/D5w 32 mg In 250 0 / 0 ml @ 0 MCG/KG/MIN IV .Q0M [facility] Rx#:[id number] Potassium Chloride / Wtr 20 meq 200 / 200 75.833 / 75.833 In 100 ml @ 50 mls/hr IV Q2H [facility] Rx#:[id number] Sodium Chloride 0.9% 1000ML 1, 660 / 660 000 ml @ 30 mls/hr IV .Q24H [facility] Rx#:[id number] Sodium Phosphate 15 mmol In 255 / 255 Sodium Chloride 0.9% 250 ml @ 88 mls/hr IV ONE ONE Rx#: [id number] fentaNYL DRIP 1,250 mcg In 250 3.667 / 291.667 ml @ 50 MCG/HR 10 mls/hr IV . Q25H [facility] Rx#:[id number] Output: Urine Amount (Catheter) 1250 / 5025 2300 / 5025 300 / 300 Ibanez/Indwelling 1250 / 5025 2300 / 5025 300 / 300 Drain Output 95 / 400 150 / 400 105 / 105 Left Abdomen MAYELIN #1 60 / 255 100 / 255 50 / 50 Right Abdomen MAYELIN #2 35 / 145 50 / 145 55 / 55 Other: Weight 134.6 kg Weight Measurement Method Built in [facility] (1) Respiratory failure Chronicity: acute Respiratory failure complication: hypoxia and hypercapnia Qualified Code(s): J96.01 - Acute respiratory failure with hypoxia; J96.02 - Acute respiratory failure with hypercapnia
--- NOTE | 2020-07-12 10:29 | Critical Care Progress Note ---
Date of Service July 12, 2020 Assessment & Plan (1) Bowel perforation: (2) Septic shock: (3) Anemia: (4) Renal failure, acute: (5) Diastolic CHF, chronic: (6) Obesity hypoventilation syndrome: Impression: 79-year-old male status post exploratory laparotomy in the setting of free intraperitoneal air secondary to dislodgment of gastric tube resulting in peritonitis. He has bacteremia and fungemia and hypoxemic respiratory failure 24 Hour events: Patient continues to require dopamine at moderate to high doses. He has had intermittent episodes of hypotension and transient desaturations but overall is about the same. He is diuresing. Recommendations: NEURO - Currently sedated with Versed and fentanyl. Continue daily sedation break. Patient is not yet appropriate for ventilator weaning trials given his persistent septic shock. CARDIAC/VASCULAR - Severe sepsis with septic shock: The patient remains dependent on dopamine (using dopamine given bradycardia with Norepi). Appreciate cardiology consultation. His random cortisol was normal. Trial of midodrine to see if we can get him off pressors. Low albumin also contributing. He is volume up and tolerated attempts at diuresis so we will continue Lasix 40 mg twice daily in an effort to try and improve his position on the Star[place] curve. Prior echocardiogram showed grade 1 diastolic dysfunction. Follow-up transesophageal echocardiogram is deferred unless his cultures remain persistently positive. RESPIRATORY - Stable vent settings AC/14/500/8/0.5. The patient has a history of obesity hypoventilation and is on BiPAP normally. Will use higher PEEP to try and splint airways open. Once his hemodynamics tighten up, may consider SBT. We will plan to extubate to BiPAP. X-ray appears fluid overloaded with an expanding left effusion. No indication for thoracentesis currently. Respiratory alkalosis on blood gas. GI/NUTRITION - Peritonitis secondary to dislodgment of G-tube. Surgically corrected. Contrast injection through the G-tube today demonstrated it to be in the stomach with no evidence of leak. Will continue trophic tube feeding as I doubt the patient will improve significantly without significant improvement in his nutrit ional status. As his hemodynamics improve, will advance tube feeds to goal. Given the patient's fungal bloodstream infection, is not a candidate for PPN or TPN. Prealbumin check Tuesday. RENAL/LYTES - Acute renal failure: Serum creatinine normal today. Continue attempts at diuresis as noted above. Electrolytes will continue to be repleted. Acid-base status stable. - Ibanez in place - Strict I&Os. ENDO - Glycemic control per ICU protocol. Continue home Synthroid HEME - Stable hemoglobin and hematocrit status post transfusion. No evidence of ongoing blood loss. Continue to trend at this point time. Platelet count high consistent with infection ID - [facility]. 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 Day #4 meropenem and Cancidas. Given the possibility of Enterococcus in the peritoneal fluid, will continue Carbapenem for now. Awaiting speciation of fungus but preliminarily appears to be 2 separate species, 1 albicans and one nonalbicans. We will continue caspofungin. Anticipate that he will need at least 2 weeks of therapy with antifungals and potentially 7 to 10 days of antibacterial therapy. Ophthalmology exam demonstrated no evidence of endophthalmitis. His surveillance cultures are currently no growth to date. due to Fungemia, all lines changed out 07/11. LINES/IV ACCESS - PIVs x2 RIGHT LSC CVL 07/11/20 RIGHT L Art line 07/11/20 ET Tube Surgical G tube Ibanez MAYELIN Drain x2 DVT PROPHYLAXIS - Hold w/ recent abdominal surgery SCDs I have personally spent 38 minutes of critical care time in the direct management of this patient. This is a life/limb threatening event. This includes time spent evaluating patient, direct bedside care, chart review, placing orders, interpretation of diagnostic studies, discussion with consultants, patient, and family members, as well as other required patient management activities. This time is exclusive of all separately billable procedures, and teaching time and separate from and in addition to any other critical care service time. Patient is critically ill at this point time with multiorgan system dysfunction. Daughter updated. Prognosis for functional recovery is guarded. Daughter has made decision to not pursue CPR, or defibrillation in the event of clinical deterioration which I think is appropriate. We will continue to support in hopes of recovery. Admission and Anticipated Discharge Date Admission Date: July 07, 2020 Subjective Intubated and sedated Review of Systems Review of Systems: Unobtainable due to endotracheal tube Physical Exam Eyes: PERRL, conjunctivae normal, anicteric sclerae Neck: trachea midline, no thyromegaly Respiratory: normal respiratory effort Auscultation: + bronchovesicular breath sounds Cardiovascular: Rate/Rhythm: regular rate and regular rhythm Heart Sounds: normal S1 and normal S2; no murmur Extremities: + edema Gastrointestinal (Abdomen): Inspection/Auscultation: abdomen normal to inspection Incisions OK. MYAELIN drains with minimal output Skin: Multiple areas of ecchymoses and skin breakdown Neurologic: sedated Results & Data Results & Data ([facility]) Vital Signs (Past 12 Hours) Vital Signs Temp Pulse Resp BP Pulse Ox 07/12/20 07:35 81 14 95 07/12/20 04:00 79 103/55 L 07/12/20 03:35 79 14 97 07/12/20 00:00 69 07/11/20 23:08 69 15 98 07/11/20 22:45 36.9 C 72 98 07/11/20 22:30 36.9 C 84 98 Critical Care Results & Data Vital Signs (Past 12 Hours) Vital Signs Temp Pulse Resp BP Pulse Ox 07/12/20 07:35 81 14 95 07/12/20 04:00 79 103/55 L 07/12/20 03:35 79 14 97 07/12/20 00:00 69 07/11/20 23:08 69 15 98 07/11/20 22:45 36.9 C 72 98 07/11/20 22:30 36.9 C 84 98 Lab & Micro Results (Past 24 Hours) RBC 3.57 M/uL (4.7-6.1) L 07/12/20 WBC 16.15 K/uL (4.8-10.8) H 07/12/20 Hgb 10.6 g/dL (14.0-18.0) L 07/12/20 Hct 32.1 % (42-52) L 07/12/20 MCV 89.9 fL (80-100) 07/12/20 MCH 29.7 pg (25-34) 07/12/20 MCHC 33.0 g/dL (32-36) 07/12/20 RDW Standard Deviation 52.6 fL (36.4-46.3) H 07/12/20 RDW Coefficient of Variation 16.1 % (11.5-14.5) H 07/12/20 Plt Count 471 K/uL (130-400) H 07/12/20 MPV 8.8 fL (7.4-10.4) 07/12/20 Neutrophils (%) (Auto) 69.4 % 07/12/20 Lymphocytes (%) (Auto) 12.8 % 07/12/20 Monocytes # (Auto) 1.80 K/uL (0.11-0.59) H 07/12/20 Eosinophils # (Auto) 0.11 K/uL (0-0.5) 07/12/20 Immature Granulocyte % (Auto) 5.8 % 07/12/20 Neutrophils # (Auto) 11.21 K/uL (1.4-6.5) H 07/12/20 Lymphocytes # (Auto) 2.07 K/uL (1.2-3.4) 07/12/20 Monocytes # (Auto) 1.80 K/uL (0.11-0.59) H 07/12/20 Eosinophils # (Auto) 0.11 K/uL (0-0.5) 07/12/20 Basophils # (Auto) 0.03 K/uL (0-0.2) 07/12/20 Immature Granulocyte # (Auto) 0.93 K/uL (0.00-0.02) H 07/12/20 Red Blood Cell Morphology Unremarkable 07/12/20 Na 138 mmol/L (136-145) 07/12/20 K 3.3 mmol/L (3.5-5.1) L 07/12/20 Cl 103 mmol/L (98-107) 07/12/20 CO2 33 mmol/L (21-32) H 07/12/20 Anion Gap 2.0 (3-11) L 07/12/20 BUN 11 mg/dl (7-18) 07/12/20 Creatinine 0.49 mg/dl (0.6-1.4) L 07/12/20 Estimated GFR ( Amer) 120.5 07/12/20 Estimated GFR (Non-Af Amer) 103.9 07/12/20 BUN/Creatinine Ratio 22.9 (10-20) H 07/12/20 Glu 131 mg/dl (70-99) H 07/12/20 Ca 8.0 mg/dl (8.5-10.1) L 07/12/20 Phosphorus Level 2.8 mg/dl (2.5-4.9) 07/12/20 Mg 2.0 mg/dl (1.8-2.4) 07/12/20 04:13 07/12/20 Calcium Level 8.0 mg/dl (8.5-10.1) L 07/12/20 04:13 07/12/20 Microbiology 07/06/20 21:26 Aerobic Blood Culture - Preliminary Blood Yeast Anaerobic Blood Culture - Final No growth in Anaerobic bottle after 5 days. 07/09/20 12:09 Aerobic Blood Culture - Preliminary Blood No growth in Aerobic bottle after 48 hours. Anaerobic Blood Culture - Preliminary No growth in Anaerobic bottle after 48 hours. 07/09/20 11:49 Aerobic Blood Culture - Preliminary Blood No growth in Aerobic bottle after 48 hours. Anaerobic Blood Culture - Preliminary No growth in Anaerobic bottle after 48 hours. 07/08/20 11:00 Gram Stain - Final Peritoneal Fluid Aerobic and Anaerobic Culture - Preliminary Yeast not Shantell albicans/dub Shantell albicans/dubliniensis 07/07/20 02:43 Aerobic Blood Culture - Preliminary Blood Yeast Anaerobic Blood Culture - Preliminary Yeast not Shantell albicans/dub Diagnostic Findings (Past 24 Hours) Chest X-Ray 07/11/20 11:55 XR chest 1V portable CLINICAL HISTORY: central line placement COMPARISON STUDY: Chest radiograph July 11, 2020 at 6:44 AM. FINDINGS: There is no pneumothorax following placement of a left subclavian central line. Catheter tip projects over the SVC. Tip of endotracheal tube is 4 cm above the jie. Right internal jugular central line remains in place. Low lung volumes persist. There is a persistent right pleural effusion with right basilar opacity. There is pulmonary vascular congestion. Right lung volume loss is unchanged. Cardiomegaly is again noted. There is contrast within the stomach. IMPRESSION: 1. No pneumothorax placement of a left subclavian central line. 2. Satisfactory positioning of the endotracheal tube. 3. Persistent right pleural effusion with asymmetric right lung airspace opacity and volume loss. 4. Pulmonary vascular congestion with suspected mild pulmonary edema. ACT 112: Negative or not required by law. Electronically signed by: Octavio Castanon M.D. 07/11/2020 12:53 PM Chest X-Ray 07/12/20 07:00 XR chest 1V portable CLINICAL HISTORY: Respiratory failure. COMPARISON STUDY: Chest radiograph July 11, 2020. FINDINGS: Tip of endotracheal tube is 3.6 cm above the jie. Left subclavian central line is in place. Right internal jugular central line has been removed. Lung volumes are significantly diminished. Lung aeration has diminished. There is no pneumothorax Bilateral airspace opacities and interstitial thickening or greater within the right lung. A right pleural effusion is noted. Contrast within the stomach is noted. Postoperative findings within the abdomen are partially imaged on this exam. IMPRESSION: 1. Satisfactory positioning of lines and tubes. 2. Low lung volumes with bilateral airspace opacities and interstitial thickening. Decrease in lung aeration since prior exam. 3. Elevation of the right hemidiaphragm with right pleural effusion. No pneumothorax. ACT 112: Negative or not required by law. Electronically signed by: Octavio Castanon M.D. 07/12/2020 8:30 AM I & O Totals 24 Hours 07/11/20 07/12/20 07/13/20 06:59 06:59 06:59 Intake Total 4149.710 / 4149.710 2942.650 / 2942.650 1189.932 / 1189.932 Output Total 5915 / 5915 5425 / 5425 540 / 540 Balance -1765.290 / -1765.290 -2482.350 / -2482.350 649.932 / 649.932 Cumulative 07/06/20 20:34 thru 07/12/20 10:00 Intake Total 56005.357 Output Total 34759 Balance 1708.357 RT Ventilator Mngmt (Last Documented) Ventilator Ordered Settings Ventilator Support Mode Assist Control 07/12/20 07:35 Respiratory Rate 14 07/12/20 07:35 Ventilator Tidal Volume 500 07/12/20 07:35 Setting Minute Ventilation 7 07/12/20 07:35 Ventilator Positive Pressure 10 07/08/20 12:00 Support Setting Positive End Expiratory 8 07/12/20 07:35 Pressure Fraction of Inspired Oxygen 40 07/12/20 08:00 Machine Comment FiO2 increased to 40% post ABG 07/12/20 05:35 per OKSANA Lynch Ventilator - PT Measurements Respiratory Rate 14 Exhaled Tidal Volume 500 Minute Ventilation 7 Peak Inspiratory Airway 31 Pressure Mean Airway Pressure 12 Plateau Pressure 18 Respiratory Cycle Inspiratory: 1:3.3 Expiratory Ratio Inspiratory Phase Time 1 End-Tidal CO2 37 Static Lung Compliance 50.00 Dynamic Lung Compliance 21.74 Normal Static Lung Compliance 46.00 Patient Measurements Comment Inspiratory filter changed. Coding Level of Care Code Critical Care 1st 30-74 mins Diagnoses Bowel perforation K63.1 Septic shock A41.9; R65.21 Anemia D64.9 Renal failure, acute N17.9 Diastolic CHF, chronic I50.32 Obesity hypoventilation syndrome E66.2 Time Spent (min) 38
[2020-07-12] MEDS ORDERED: CALCIUM CHLORIDE 10% 1,000 MG in SODIUM CHLORIDE 0.9% 50 ML IV STA (10:55)
[2020-07-12] MEDS: ALBUMIN 25% 12.5 GM/50 ML VIAL IV SCH ×4 (12:26→14:46)
[2020-07-12] MEDS: MIDODRINE HCL 10 MG TAB PO SCH ×2 (12:27→17:21)
[2020-07-12] MEDS: SODIUM CHLORIDE 0.9% 1000ML 1,000 ML IV SCH (15:57)
[2020-07-12 20:34] LABS: BUN Creatinine Ratio 23.3 (10-20); Calcium 8.9 mg/dl (8.5-10.1); Creatinine Clr Calc Pharmacy 200.2 ml/min; Est GFR (African American) 123.6; Est GFR (Non-African American) 106.7; Potassium 3.4 mmol/L (3.5-5.1)
--- NOTE | 2020-07-13 00:32 | Hospitalist Progress Note ---
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 Ware Represented 07/07 with unresponsiveness, abdominal pain, severe pain. S/P Exp Laparotomy on 07/07 setting of free intraperitoneal air with replacement of gastric tube and drains requiring close hemodynamic monitoring in setting of severe sepsis and now fungemia Patient remains on dopamine for hemodynamic support for persistent septic shock. (2) Bowel perforation: viscus rupture with merrem on board. (3) Fungemia: Caspofungin. 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 Final fungal culture pending, but initial fungal smear of blood was negative. Defer need for ANASTASIA to Court Recording Monitor/ID/Cardio All lines were changed out on 07/11 (4) Constipation: No BM noted since surgery. Abdomen is soft and surgery is following. Primary nurse noted 120cc residual in stomach. ?ileus, consider abdominal imaging. (5) Diastolic CHF, chronic: worsened pitting edema noted on lower extremities today, cont Lasix. Albumin also started. (6) Bradycardia: Dopamine drip (7) COPD (chronic obstructive pulmonary disease): chronic stable (8) Obesity hypoventilation syndrome: (9) Anemia: 2/2 acute blood loss and multiple comorbidities/phlebotomy 10.6/32 today. Patient received 1 unit PRBC on 07/08 in setting of hemoglobin drop to 7.4 Continue to monitor H&H Patient has had significant output cumulatively from MAYELIN drain #1 and #2 (10) Post-operative state: (11) DVT prophylaxis: SQ Heparin Dispo: remains in ICU, will need rehab when recovered. Conditional Code--no shocks or compressions DO Vicente Rosenthal Hospitalist Admission and Anticipated Discharge Date Admission Date: July 07, 2020 Subjective 79-year-old man readmitted for complication of recent surgery. Currently has a perforated viscus and is status post exploratory laparotomy with repair of gastrostomy, replacement of gastrostomy tube and abdominal washout by Dr. Damon on 07/06. He remains intubated and sedated in the ICU on dopamine for bradycardia. Review of systems, therefore, cannot be obtained. Review of Systems Review of Systems: Unobtainable due to endotracheal tube Physical Exam Physical Exam: CONSTITUTIONAL: obese, vitals as above, intubated and sedated EYES: PERRL, normal conjunctivae ENT: external ear and nose normal, ETT in place RESPIRATORY: upper airway sounds obscuring auscultation, however, mostly clear with good airflow throughout,no wheezes or rales. CARDIOVASCULAR: regular rate and rhythm, S1 and 2 heard without murmurs, ga llops or rubs, no JVD, no peripheral edema GASTROINTESTINAL: soft, surgical wound covered with dressing that is c/d/i MUSCULOSKELETAL: strength 5/5 throughout, head is normocephalic and atraumatic, neck supple, normal palpation of chest wall without tenderness SKIN: warm and dry NEUROLOGIC: sedated, limited exam Results & Data Results & Data ([facility]) Vital Signs (Past 12 Hours) Vital Signs Temp Pulse Resp BP Pulse Ox 07/12/20 22:45 36.7 C 77 92 07/12/20 22:30 36.7 C 81 90 07/12/20 22:22 58 L 15 97 07/12/20 22:15 36.7 C 54 L 97 07/12/20 22:00 36.6 C 73 102/65 97 07/12/20 21:45 36.6 C 69 97 07/12/20 21:30 36.6 C 67 99 07/12/20 21:15 36.6 C 70 99 07/12/20 21:00 36.6 C 68 113/70 99 07/12/20 20:45 36.6 C 71 99 07/12/20 20:30 36.6 C 73 99 07/12/20 20:15 36.6 C 71 99 07/12/20 20:00 36.6 C 77 92/59 L 99 07/12/20 19:45 36.6 C 63 99 07/12/20 19:30 36.5 C 70 99 07/12/20 19:15 36.5 C 65 98 07/12/20 19:06 75 14 98 07/12/20 19:01 36.5 C 75 109/67 98 07/12/20 19:00 36.5 C 80 98 07/12/20 17:30 36.6 C 64 95 07/12/20 17:15 36.6 C 63 94 07/12/20 17:00 36.6 C 66 112/66 96 07/12/20 16:47 36.6 C 65 125/79 94 07/12/20 16:45 36.6 C 63 94 07/12/20 16:30 36.6 C 61 93 07/12/20 16:15 36.7 C 61 97 07/12/20 16:01 36.7 C 61 125/79 98 07/12/20 16:00 36.7 C 65 98 07/12/20 15:45 36.7 C 76 98 07/12/20 15:30 36.7 C 70 95 07/12/20 15:28 36.7 C 82 92/64 L 95 07/12/20 15:15 36.8 C 75 91 07/12/20 15:00 36.8 C 75 101/65 91 07/12/20 14:45 36.8 C 67 93 07/12/20 14:33 73 14 92 07/12/20 14:30 36.9 C 75 92 07/12/20 14:15 36.9 C 74 93 07/12/20 14:00 36.9 C 78 112/70 96 07/12/20 13:45 36.9 C 66 100 07/12/20 13:30 36.9 C 70 95 07/12/20 13:15 36.9 C 70 100 07/12/20 13:00 36.9 C 71 111/74 99 07/12/20 12:45 36.9 C 77 95 07/12/20 12:30 36.9 C 73 97 Laboratory Results Short CBC 07/12/20 Range/Units 04:13 WBC 16.15 H (4.8-10.8) K/uL Hgb 10.6 L (14.0-18.0) g/dL Hct 32.1 L (42-52) % Plt Count 471 H (130-400) K/uL BMP 07/12/20 07/12/20 04:13 19:52 Sodium 138 138 Potassium 3.3 L 3.4 L Chloride 103 100 Carbon Dioxide 33 H 32 BUN 11 11 Creatinine 0.49 L 0.46 L Glucose 131 H 120 H Calcium 8.0 L 8.9 Medications Administered Current Inpatient Medications Atropine Sulfate (Atropine Sulfate 0.1 Mg/Ml 5ml Syr) 0.5 mg IV ONE PRN PRN Reason: bradycardia, sustained HR < 40 Stop: 08/09/20 14:01 Fentanyl Citrate (Fentanyl Bolus From Bag) 50 mcg IV Q60M PRN PRN Reason: Pain or Agitation Stop: 07/21/20 02:45 Last Admin: 07/09/20 16:17 Dose: 50 mcg Documented by: Heparin Sodium (Beef Lung) (Heparin 10 Unit/Ml 5 Ml Flush) 5 ml FLUSH PRN PRN PRN Reason: Flush Stop: 08/09/20 20:58 Last Admin: 07/10/20 21:15 Dose: 5 ml Documented by: Heparin Sodium (Porcine) (Heparin Sod 5,000 Unit/0.5 Ml Vial) 7,500 units SQ BID YOSSI Stop: 08/07/20 20:59 Last Admin: 07/12/20 20:35 Dose: 7,500 units Documented by: Sodium Chloride (Nss 1000ml) 1,000 mls @ 30 mls/hr IV .Q24H YOSSI Stop: 08/06/20 02:28 Last Admin: 07/12/20 15:57 Dose: 30 mls/hr Documented by: Famotidine 20 mg/ Syringe 5 mls @ 2.5 mls/min IV Q12H YOSSI Stop: 08/06/20 08:59 Last Admin: 07/12/20 20:34 Dose: 2.5 mls/min Documented by: Midazolam HCl (Versed) 125 mg in 250 mls @ 0 mls/hr IV .Q0M YOSSI; Protocol Stop: 08/06/20 02:59 Last Admin: 07/12/20 07:50 Dose: Not Given Documented by: Fentanyl Citrate (Fentanyl Drip) 1,250 mcg in 250 mls @ 10 mls/hr IV .Q25H YOSSI; Protocol Stop: 07/21/20 02:59 Last Admin: 07/12/20 15:55 Dose: 50 mcg/hr, 10 mls/hr Documented by: Norepinephrine Bitartrate (Levophed/D5w) 32 mg in 250 mls @ 0 mls/hr IV .Q0M YOSSI; Protocol Stop: 08/06/20 10:44 Last Titration: 07/11/20 17:12 Dose: Infused Documented by: Caspofungin 50 mg/ Sodium (Chloride) 260 mls @ 260 mls/hr IV DAILY [facility] Stop: 07/18/20 08:59 Last Infusion: 07/12/20 10:44 Dose: Infused Documented by: Dopamine HCl/Dextrose (Dopamine / D5w) 400 mg in 250 mls @ 63.9 mls/hr IV .Q3H55M [facility]; Protocol Stop: 08/08/20 00:59 Last Admin: 07/12/20 23:06 Dose: 12 mcg/kg/min, 63.9 mls/hr Documented by: Furosemide 40 mg/ Syringe 4 mls @ 4 mls/min IV BID17 [facility] Stop: 08/09/20 12:59 Last Admin: 07/12/20 17:21 Dose: 4 mls/min Documented by: Meropenem 500 mg/ Syringe 10 mls @ 2 mls/min IV Q6H [facility]; Protocol Stop: 07/21/20 15:59 Last Admin: 07/12/20 20:34 Dose: 2 mls/min Documented by: Potassium Chloride (K Aman / Wtr) 20 meq in 100 mls @ 50 mls/hr IV Q2H [facility] Stop: 07/13/20 05:59 Last Admin: 07/12/20 23:44 Dose: 50 mls/hr Documented by: Insulin Aspart (Insulin Aspart 100 Units/Ml 3 Ml Pen) 0 units SC Q6 [facility]; Protocol Stop: 08/06/20 13:14 Last Admin: 07/12/20 17:22 Dose: Not Given Documented by: Midazolam HCl (Midazolam Bolus From Bag) 2 mg IV Q60M PRN PRN Reason: Sedation Stop: 08/06/20 02:45 Midodrine (Midodrine Hcl 10 Mg Tab) 10 mg PO Q8@0600,1300,1800 [facility] Stop: 08/11/20 12:59 Last Admin: 07/12/20 17:21 Dose: 10 mg Documented by: Miscellaneous (Icu Electrolyte Replacement Protocol) 1 ea N/A BID@06,18 YOSSI; Protocol Stop: 07/18/20 05:59 Last Admin: 07/12/20 17:22 Dose: Not Given Documented by: Miscellaneous Information (Meropenem Consult Acitve) 1 ea N/A UD PRN PRN Reason: Consult Stop: 08/08/20 10:24 Nutritional Formula (Peptamen Intense Vhp 1.0 Ata 1,000 Ml Bag) 1,000 ml GT UD YOSSI; Protocol Stop: 08/09/20 13:44 Last Admin: 07/10/20 14:57 Dose: 1,000 ml Documented by: Sterile Water (Tube Feeding Water Flush) 30 ml GT Q4H YOSSI Stop: 08/09/20 15:59 Last Admin: 07/12/20 17:02 Dose: 30 ml Documented by:
[2020-07-13] MEDS: INSULIN ASPART 100 UNITS/ML 3 ML PEN SC SCH ×4 (01:07→17:25)
[2020-07-13] MEDS: TUBE FEEDING WATER FLUSH GT SCH ×6 (01:09→21:03)
[2020-07-13] MEDS: POTASSIUM CHLORIDE / WTR 20 MEQ/100 ML PLCT IV SCH ×4 (01:47→10:43)
[2020-07-13] MEDS: PEPTAMEN INTENSE VHP 1.0 CAL 1,000 ML BAG GT SCH (01:48)
[2020-07-13] MEDS: DOPamine / D5W 400 MG/250 ML BAG IV SCH ×8 (02:50→15:45)
[2020-07-13] MEDS: MEROPENEM 500 MG in SYRINGE 0 ML IV SCH ×4 (03:46→20:56)
[2020-07-13 03:49] LABS: iSTAT Arterial Blood Gas HCO3 31 meg/L (19-24); iSTAT Arterial Blood Gas pCO2 42 mmHg (35-46); iSTAT Arterial Blood Gas pH 7.48 (7.35-7.45); iSTAT Arterial Blood Gas pO2 54 mmHg (80-95); iSTAT Carbon Dioxide 32 mmol/L (24-31); iSTAT Hematocrit 30 % (42-52); iSTAT Hemoglobin 10.2 g/dl (14.0-18.0); iSTAT Potassium 4.1 mmol/L (3.3-5.0); iSTAT Sodium 135 mmol/L (135-144)
[2020-07-13 04:13] LABS: Hematocrit (blood only) 31.4 % (42-52); Hemoglobin 10.2 g/dL (14.0-18.0); Mean Corpuscular Hemoglobin 29.2 pg (25-34); Mean Corpuscular Hgb Conc 32.5 g/dL (32-36); Platelet Count 494 K/uL (130-400); RDW Coefficient of Variation 16.1 % (11.5-14.5); RDW Standard Deviation 51.8 fL (36.4-46.3); Red Blood Count 3.49 M/uL (4.7-6.1); White Blood Count 16.58 K/uL (4.8-10.8)
[2020-07-13 04:40] LABS: Basophils # (auto) 0.04 K/uL (0-0.2); Basophils % (auto) 0.2 %; Eosinophils # (auto) 0.14 K/uL (0-0.5); Eosinophils % (auto) 0.8 %; Immature Granulocytes # (auto) 0.98 K/uL (0.00-0.02); Immature Granulocytes % (auto) 5.9 %; Lymphocytes # (auto) 1.69 K/uL (1.2-3.4); Lymphocytes % (auto) 10.2 %; Monocytes # (auto) 1.78 K/uL (0.11-0.59); Monocytes % (auto) 10.7 %; Neutrophils # (auto) 11.95 K/uL (1.4-6.5); Neutrophils % (auto) 72.2 %
[2020-07-13] MEDS: MIDODRINE HCL 10 MG TAB PO SCH ×3 (05:26→21:03)
--- NOTE | 2020-07-13 07:56 | Progress Note ---
Date of Service stable, still on vent, feeding 10 /hour, no fever, MAYELIN 370 ml, clear, July 13, 2020 Assessment & Plan Admission and Anticipated Discharge Date Admission Date: July 07, 2020 Supervising Physician Co-Signing Physician Notes Patient seen and examined by me, care coordinated with Eufemia Liu PA-C, please refer to note above for further detail. 79-year-old male, with recent history of sigmoid volvulus, underwent surgical procedure on June 26, then presented with sepsis several days later. Underwent ex lap with surgical team, gastric tube was found dislodged. Currently patient is in ICU, intubated, sedated, on dopamine for bradycardia and hypotension. On broad spectrum IV Abx and also on caspofungin for fungemia. Patient seen in room 111 in ICU. He is intubated and sedated. Rhonchorous breath sounds noted. Heart sounds regular. Abdomen obese, soft somewhat distended, significant horizontal scar at the left lower abdomen noted, +gastric tube. There is lower extremity edema 2+ pitting. Currently patient is in the care of ICU and surgical team. Surgical team will continue to follow. Current events reviewed, notes from cardiology and ID reviewed as well. MD Scot 07/12/2020 7:42AM Dr. Salguero (1) Perforated viscus: POD#5 ex lap, abdominal washout, replacement of dislodged G tube Contrast study performed on 07/10/2020 showing g-tube is in correct position and no contrast extravasation feeding 10ml/hour, slow increase feeding, if tolerated it, continue iv antibiotic, repeat labs tomorrow morning, Continue daily dressing changes MAYELIN drains serosang will F/U Appreciate can intake worker and hospitalist services assistance with patient 07/13/2020 7:58AM, Dr salguero, jaswant, WBC 16,000 continue treatment, Perforated viscus: POD#6 ex lap, abdominal washout, replacement of dislodged G tube Contrast study performed on 07/10/2020 showing g-tube is in correct position and no contrast extravasation feeding 10ml/hour, slow increase feeding, if tolerated it, continue iv antibiotic, repeat labs tomorrow morning, Continue daily dressing changes MAYELIN drains serosang will F/U Appreciate can intake worker and hospitalist services assistance with patient Subjective 79-year-old man readmitted for complication of recent surgery. Currently has a perforated viscus and is status post exploratory laparotomy with repair of gastrostomy, replacement of gastrostomy tube and abdominal washout by Dr. Damon on 07/06. He remains intubated and sedated in the ICU on dopamine for bradycardia. Review of systems, therefore, cannot be obtained. Physical Exam Constitutional: WD/WN, vitals as above Neck: trachea midline, no thyromegaly Respiratory: normal respiratory effort, lungs clear to auscultation Cardiovascular: RRR, no murmur, no edema Gastrointestinal (Abdomen): Percussion/Palpation: abdomen soft no distend, Results & Data ([facility]) Vital Signs (Past 12 Hours) Vital Signs Temp Pulse Resp BP Pulse Ox 07/13/20 07:15 36.9 C 71 97 07/13/20 07:00 36.8 C 82 109/72 92 07/13/20 06:45 36.8 C 72 92 07/13/20 06:30 36.8 C 74 92 07/13/20 06:15 36.8 C 65 97 07/13/20 06:00 36.8 C 77 110/69 92 07/13/20 05:45 36.8 C 73 90 07/13/20 05:30 36.8 C 79 91 07/13/20 05:15 36.8 C 71 93 07/13/20 05:00 36.7 C 75 111/68 93 07/13/20 04:45 36.7 C 92 H 95 07/13/20 04:30 36.7 C 69 92 07/13/20 04:15 36.7 C 79 94 07/13/20 04:08 80 18 91 07/13/20 04:00 36.7 C 64 138/80 96 07/13/20 03:45 36.8 C 70 91 07/13/20 03:30 36.8 C 75 91 07/13/20 03:15 36.8 C 72 91 07/13/20 03:02 36.8 C 81 113/63 91 07/13/20 03:00 36.8 C 76 91 07/13/20 02:45 36.9 C 81 89 L 07/13/20 02:30 36.9 C 85 96 07/13/20 02:15 36.9 C 93 H 82 L 07/13/20 02:00 36.9 C 81 87/61 L 88 L 07/13/20 01:45 36.9 C 79 89 L 07/13/20 01:30 36.9 C 76 90 07/13/20 01:15 36.8 C 71 94 07/13/20 01:00 36.8 C 79 83/53 L 89 L 07/13/20 00:45 36.8 C 67 96 07/13/20 00:30 36.7 C 73 94 07/13/20 00:15 36.7 C 74 87 L 07/13/20 00:00 36.7 C 80 96/57 L 86 L 07/12/20 23:59 77 07/12/20 23:45 36.7 C 75 90 07/12/20 23:30 36.7 C 84 85 L 07/12/20 23:15 36.7 C 86 91 07/12/20 23:00 36.7 C 71 106/68 94 07/12/20 22:45 36.7 C 77 92 07/12/20 22:30 36.7 C 81 90 07/12/20 22:22 58 L 15 97 07/12/20 22:15 36.7 C 54 L 97 07/12/20 22:00 36.6 C 73 102/65 97 07/12/20 21:45 36.6 C 69 97 07/12/20 21:30 36.6 C 67 99 07/12/20 21:15 36.6 C 70 99 07/12/20 21:00 36.6 C 68 113/70 99 07/12/20 20:45 36.6 C 71 99 07/12/20 20:30 36.6 C 73 99 07/12/20 20:15 36.6 C 71 99 07/12/20 20:00 36.6 C 77 92/59 L 99 Laboratory Results Abnormal lab results 07/12/20 07/12/20 07/12/20 Range/Units 17:22 19:52 23:28 WBC (4.8-10.8) K/uL RBC (4.7-6.1) M/uL Hgb (14.0-18.0) g/dL POC Hgb (14.0-18.0) g/dl Hct (42-52) % POC Hct (42-52) % RDW Std Deviation (36.4-46.3) fL RDW Coeff of Maximilian (11.5-14.5) % Plt Count (130-400) K/uL Neut # (Auto) (1.4-6.5) K/uL [place] # (Auto) (0.11-0.59) K/uL Immature Gran # (Auto) (0.00-0.02) K/uL POC pH (7.35-7.45) POC pO2 (80-95) mmHg POC HCO3 (19-24) sreedhar/L POC Total CO2 (24-31) mmol/L POC Base Excess (-9-1.8) sreedhar/L Potassium 3.4 L (3.5-5.1) mmol/L Creatinine 0.46 L (0.6-1.4) mg/dl BUN/Creatinine Ratio 23.3 H (10-20) Glucose 120 H (70-99) mg/dl POC Glucose 120 H (70-99) mg/dl POC Glucose (other) 122 H (70-99) mg/dl 07/13/20 07/13/20 07/13/20 Range/Units 03:35 03:47 05:30 WBC 16.58 H (4.8-10.8) K/uL RBC 3.49 L (4.7-6.1) M/uL Hgb 10.2 L (14.0-18.0) g/dL POC Hgb 10.2 L (14.0-18.0) g/dl Hct 31.4 L (42-52) % POC Hct 30 L (42-52) % RDW Std Deviation 51.8 H (36.4-46.3) fL RDW Coeff of Maximilian 16.1 H (11.5-14.5) % Plt Count 494 H (130-400) K/uL Neut # (Auto) 11.95 H (1.4-6.5) K/uL [place] # (Auto) 1.78 H (0.11-0.59) K/uL Immature Gran # (Auto) 0.98 H (0.00-0.02) K/uL POC pH 7.48 H (7.35-7.45) POC pO2 54 L (80-95) mmHg POC HCO3 31 H (19-24) sreedhar/L POC Total CO2 32 H (24-31) mmol/L POC Base Excess 7.0 H (-9-1.8) sreedhar/L Potassium (3.5-5.1) mmol/L Creatinine (0.6-1.4) mg/dl BUN/Creatinine Ratio (10-20) Glucose (70-99) mg/dl POC Glucose 124 H (70-99) mg/dl POC Glucose (other) (70-99) mg/dl
[2020-07-13 08:23] LABS: Albumin Level 2.4 gm/dl (3.4-5.0); BUN Creatinine Ratio 19.3 (10-20); Calcium 8.8 mg/dl (8.5-10.1); Creatinine Clr Calc Pharmacy 172.4 ml/min; Est GFR (African American) 116.6; Est GFR (Non-African American) 100.6; Magnesium 1.8 mg/dl (1.8-2.4); Potassium 3.8 mmol/L (3.5-5.1)
[2020-07-13 08:26] LABS: Albumin Globulin Ratio 0.7 (0.9-2); Bilirubin,Total 0.6 mg/dl (0.2-1); Globulin 3.5 gm/dl (2.5-4.0); Phosphorus 2.5 mg/dl (2.5-4.9); Total Protein 5.9 gm/dl (6.4-8.2)
[2020-07-13] MEDS: ICU ELECTROLYTE REPLACEMENT PROTOCOL SCH ×2 (08:53→17:15)
[2020-07-13] MEDS ORDERED: SODIUM PHOSPHATE 3 MMOL/1 ML INFUSION IV STA (08:58)
--- NOTE | 2020-07-13 09:01 | XRay Report ---
XR chest 1V portable CLINICAL HISTORY: Respiratory failure. COMPARISON STUDY: Chest radiograph July 12, 2020. FINDINGS: Tip of endotracheal tube is 4.9 cm above the jie. Left subclavian central line remains i n place. There is no pneumothorax. Elevation of the right hemidiaphragm is noted. Right lung aeration has improved. Cardiomediastinal silhouette is stable. Postoperative findings within the upper abdome n are partially imaged on this exam. There is apparent oral contrast within the stomach. IMPRESSION: 1. Tip of endotracheal tube 4.9 cm above the jei. 2. Interval improvement in bilateral airspace opacities and interstitial thickening with improved aer ation of the right lower lobe. ACT 112: Negative or not required by law. Electronically signed by: Octavio Castanon M.D. 07/13/2020 9:00 AM
[2020-07-13] MEDS: MAGNESIUM SULFATE / D5W 1 GM/100 ML BAG IV SCH ×2 (09:23→10:44)
[2020-07-13] MEDS: FAMOTIDINE 20 MG in SYRINGE 3 ML IV SCH ×2 (09:32→20:56)
[2020-07-13] MEDS: FUROSEMIDE 40 MG in SYRINGE 0 ML IV SCH ×2 (09:32→16:30)
[2020-07-13] MEDS: CASPOFUNGIN 50 MG in SODIUM CHLORIDE 0.9% 250 ML IV SCH (09:32)
[2020-07-13] MEDS ORDERED: SODIUM PHOSPHATE 15 MMOL in SODIUM CHLORIDE 0.9% 250 ML IV ONE (10:00)
--- NOTE | 2020-07-13 10:39 | Critical Care Progress Note ---
Date of Service July 13, 2020 Assessment & Plan (1) Bowel perforation: (2) Septic shock: (3) Anemia: (4) Renal failure, acute: (5) Diastolic CHF, chronic: (6) Obesity hypoventilation syndrome: Impression: 79-year-old male status post exploratory laparotomy in the setting of free intraperitoneal air secondary to dislodgment of gastric tube resulting in peritonitis. He has bacteremia and fungemia and hypoxemic respiratory failure 24 Hour events: Still on dopamine. Recommendations: NEURO - Currently sedated with fentanyl. Continue daily sedation break. Continue with daily SBT's CARDIAC/VASCULAR - Severe sepsis with septic shock: The patient remains dependent on dopamine (using dopamine given bradycardia with Norepi). His random cortisol was normal. Trial of midodrine to see if we can get him off pressors. Low albumin also contributing. Prior echocardiogram showed grade 1 diastolic dysfunction. Follow-up transesophageal echocardiogram is deferred unless his cultures remain persistently positive. RESPIRATORY - VDRF Secondary to septic shock Continue with ventilatory support Keep RASS -1 Daily sedation holidays and SBT's History of obesity hypoventilation and is on BiPAP normally. GI/NUTRITION - Peritonitis secondary to dislodgment of G-tube. Surgically corrected. Continue trophic tube feeding as I doubt the patient will improve significantly without significant improvement in his nutritional status. As his hemodynamics improve, will advance tube feeds to goal. Given the patient's fungal bloodstream infection, is not a candidate for PPN or TPN. RENAL/LYTES - Acute renal failure: Monitor BUNs/creatinine Replace electrolytes as needed - Ibanez in place - Strict I&Os. ENDO - Glycemic control per ICU protocol. Continue home Synthroid HEME - Stable hemoglobin and hematocrit status post transfusion. No evidence of ongoing blood loss. Continue to trend at this point time. 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 On meropenem and Caspofungin. Given the possibility of Enterococcus in the peritoneal fluid, will continue Carbapenem for now. Awaiting speciation of fungus but preliminarily appears to be 2 separate species, 1 albicans and one nonalbicans. We will continue caspofungin. Anticipate that he will need at least 2 weeks of therapy with antifungals and potentially 7 to 10 days of antibacterial therapy. Ophthalmology exam demonstrated no evidence of endophthalmitis. His surveillance cultures are currently no growth to date. due to Fungemia, all lines changed out 07/11. ID consultation reviewed --Prophylaxis VTE: Heparin subcu GI: Pepcid Lines: Left subclavian 07/11/2020, right radial 07/11/2020, positive ETT, positive Ibanez, MAYELIN drain Diet: Tube feeds Plan: In/out: -2042, urine output 6.4 L. Overall -800 since admission Chest x-ray from today shows improvement in aeration, patient has right elevated right hemidiaphragm DC IV fluids. Continue with trophic feeds, continue with diuretics twice daily currently. The patient is making good amount of urine will go down to Lasix once a day I will try to add Levophed given that the patient is on high doses of dopamine. On bedside patient seems to have Zoltan-Hernandez breathing with apneic episodes. This likely correlates with the reason he is on BiPAP at home Try to titrate down dopamine as well as possible Try pressure support on a daily basis. Reviewed blood culture from 07/09/2020 are negative to date. Sensitivities for candidiasis still pending. I have personally spent 40 minutes of critical care time in the direct david gement of this patient. This is a life/limb threatening event. This includes time spent evaluating patient, direct bedside care, chart review, placing orders, interpretation of diagnostic studies, discussion with consultants, patient, and family members, as well as other required patient management activities. This time is exclusive of all separately billable procedures, and teaching time and separate from and in addition to any other critical care service time. Patient is critically ill at this point time with multiorgan system dysfunction. Daughter updated. Prognosis for functional recovery is guarded. Daughter has made decision to not pursue CPR, or defibrillation in the event of clinical deterioration which I think is appropriate. We will continue to support in hopes of recovery. Admission and Anticipated Discharge Date Admission Date: July 07, 2020 Subjective Patient seen and examined at bedside. No acute distress. No adverse events overnight. Patient was breathing with vent. On fentanyl 50, dopamine 13 at the time of examination Has been afebrile. Making good amount of urine. No bowel movement Review of Systems Review of Systems: Unobtainable due to endotracheal tube Physical Exam Physical Exam: Constitutional: No acute distress HEENT: EOMI, PERRLA, positive ETT Respiratory system: Decreased air entry on the right side, no wheeze, no rhonchi, mild crackles bilateral lower lobes CVS: S1-S2 positive, no murmurs or gallops, distant heart sounds Abdomen: Soft, nontender, nondistended, decreased bowel sounds, MAYELIN drain in place, positive G-tube Extremities: +2 pulses bilaterally radialis/ dorsalis pedis, no cyanosis, +3 pitting edema bilateral Neuro: RASS -2, positive pupillary, positive gag, positive corneal, breathing over the vent Psych: Unable to assess G/U: Positive Ibanez Skin: no rashes, warm and dry Lymphatic: no cervical or axillary lymphadenopathy Results & Data Results & Data ([facility]) Vital Signs (Past 12 Hours) Vital Signs Temp Pulse Resp BP Pulse Ox 07/13/20 08:00 71 07/13/20 07:15 36.9 C 71 97 07/13/20 07:09 67 17 97 07/13/20 07:00 36.8 C 82 109/72 92 07/13/20 06:45 36.8 C 72 92 07/13/20 06:30 36.8 C 74 92 07/13/20 06:15 36.8 C 65 97 07/13/20 06:00 36.8 C 77 110/69 92 07/13/20 05:45 36.8 C 73 90 07/13/20 05:30 36.8 C 79 91 07/13/20 05:15 36.8 C 71 93 07/13/20 05:00 36.7 C 75 111/68 93 07/13/20 04:45 36.7 C 92 H 95 07/13/20 04:30 36.7 C 69 92 07/13/20 04:15 36.7 C 79 94 07/13/20 04:08 80 18 91 07/13/20 04:00 36.7 C 64 138/80 96 07/13/20 03:45 36.8 C 70 91 07/13/20 03:30 36.8 C 75 91 07/13/20 03:15 36.8 C 72 91 07/13/20 03:02 36.8 C 81 113/63 91 07/13/20 03:00 36.8 C 76 91 07/13/20 02:45 36.9 C 81 89 L 07/13/20 02:30 36.9 C 85 96 07/13/20 02:15 36.9 C 93 H 82 L 07/13/20 02:00 36.9 C 81 87/61 L 88 L 07/13/20 01:45 36.9 C 79 89 L 07/13/20 01:30 36.9 C 76 90 07/13/20 01:15 36.8 C 71 94 07/13/20 01:00 36.8 C 79 83/53 L 89 L 07/13/20 00:45 36.8 C 67 96 07/13/20 00:30 36.7 C 73 94 07/13/20 00:15 36.7 C 74 87 L 07/13/20 00:00 36.7 C 80 96/57 L 86 L 07/12/20 23:59 77 07/12/20 23:45 36.7 C 75 90 07/12/20 23:30 36.7 C 84 85 L 07/12/20 23:15 36.7 C 86 91 07/12/20 23:00 36.7 C 71 106/68 94 07/12/20 22:45 36.7 C 77 92 07/12/20 22:30 36.7 C 81 90 07/13/20 03:47 07/13/20 07:36 Coding Level of Care Code Critical Care 1st 30-74 mins Diagnoses Bowel perforation K63.1 Septic shock A41.9; R65.21 Anemia D64.9 Renal failure, acute N17.9 Diastolic CHF, chronic I50.32 Obesity hypoventilation syndrome E66.2 Time Spent (min) 40
[2020-07-13] MEDS: HEPARIN SOD 5,000 UNIT/0.5 ML VIAL SQ SCH ×2 (10:44→20:57)
--- NOTE | 2020-07-13 12:09 | Cardiology Progress Note ---
Date of Service July 13, 2020 Assessment & Plan (1) Bradycardia: (2) Perforated viscus: (3) Fungemia: (4) Respiratory failure: Patient remains on dopamine, 10 mcg/kg/min. BP still tenuous, seems reasonable to start Levophed if necessary and wean down dopamine. Heart rate remained stable. Continue furosemide 40 mg IV twice daily. Continue subcutaneous heparin for DVT prophylaxis, 7500 units subcutaneous twice daily. (5) Sepsis: Admission and Anticipated Discharge Date Admission Date: July 07, 2020 Subjective Patient remains sedated, on the ventilator. Sinus rhythm in the 80s noted on telemetry. FiO2 is 40% today, down from 50% 07/12/2020. Blood pressure on arterial line was 85/50, MAP of 63 at time of my assessment. Review of Systems Review of Systems: Unobtainable due to endotracheal tube Physical Exam Physical Exam: Temp Pulse Resp BP Pulse Ox 36.9 C 80 17 109/72 90 07/13/20 07:15 07/13/20 11:11 07/13/20 11:11 07/13/20 07:00 07/13/20 11:11 Constitutional: Acutely ill in appearance Respiratory: Decreased breath sounds the bases Cardiovascular: Rate/Rhythm: regular rhythm Extremities: + edema (1+ pedal edema, SCDs in place) Results & Data ([facility]) Vital Signs (Past 12 Hours) Vital Signs Temp Pulse Resp BP Pulse Ox 07/13/20 11:11 80 17 90 07/13/20 08:00 71 07/13/20 07:15 36.9 C 71 97 07/13/20 07:09 67 17 97 07/13/20 07:00 36.8 C 82 109/72 92 07/13/20 06:45 36.8 C 72 92 07/13/20 06:30 36.8 C 74 92 07/13/20 06:15 36.8 C 65 97 07/13/20 06:00 36.8 C 77 110/69 92 07/13/20 05:45 36.8 C 73 90 07/13/20 05:30 36.8 C 79 91 07/13/20 05:15 36.8 C 71 93 07/13/20 05:00 36.7 C 75 111/68 93 07/13/20 04:45 36.7 C 92 H 95 07/13/20 04:30 36.7 C 69 92 07/13/20 04:15 36.7 C 79 94 07/13/20 04:08 80 18 91 07/13/20 04:00 36.7 C 64 138/80 96 07/13/20 03:45 36.8 C 70 91 07/13/20 03:30 36.8 C 75 91 07/13/20 03:15 36.8 C 72 91 07/13/20 03:02 36.8 C 81 113/63 91 07/13/20 03:00 36.8 C 76 91 07/13/20 02:45 36.9 C 81 89 L 07/13/20 02:30 36.9 C 85 96 07/13/20 02:15 36.9 C 93 H 82 L 07/13/20 02:00 36.9 C 81 87/61 L 88 L 07/13/20 01:45 36.9 C 79 89 L 07/13/20 01:30 36.9 C 76 90 07/13/20 01:15 36.8 C 71 94 07/13/20 01:00 36.8 C 79 83/53 L 89 L 07/13/20 00:45 36.8 C 67 96 07/13/20 00:30 36.7 C 73 94 07/13/20 00:15 36.7 C 74 87 L (1) Respiratory failure Chronicity: acute Respiratory failure complication: hypoxia and hypercapnia Qualified Code(s): J96.01 - Acute respiratory failure with hypoxia; J96.02 - Acute respiratory failure with hypercapnia (2) Sepsis Sepsis acute organ dysfunction status: unspecified Sepsis type: sepsis due to unspecified organism Qualified Code(s): A41.9 - Sepsis, unspecified organism
--- NOTE | 2020-07-13 12:50 | Hospitalist Progress Note ---
Date of Service July 13, 2020 Assessment & Plan (1) Septic shock: Initial procedure 06/26 for recurrent sigmoid volvulus with exp laparotomy, sigmoidectomy and gastrostomy by Dr. Ware Represented 07/07 with unresponsiveness, abdominal pain, severe pain. S/P Exp Laparotomy on 07/07 setting of free intraperitoneal air with replacement of gastric tube and drains requiring close hemodynamic monitoring in setting of severe sepsis and now fungemia Patient remains on dopamine for hemodynamic support for persistent septic shock. (2) Postoperative ileus: No BM since second surgery, high residual in stomach of tube feeds which have been running at a trickle rate. KUB reveals evidence of ileus. (3) Bowel perforation: viscus rupture with merrem on board. (4) Fungemia: Caspofungin. Continue current sedation with mechanical ventilation and pressor support with dopamine Patient remains on IV meropenem and capsafungin appreciate Vicente ID Consult - will defer antibiotic management to print shop stenographer repeat blood cultures from 07/09 are negative for franko at this time. Final fungal culture pending, but initial fungal smear of blood was negative. Defer need for ANASTASIA to Leadership Development Instructor/ID/Cardio All lines were changed out on 07/11 (5) Diastolic CHF, chronic: worsened pitting edema noted on lower extremities today, cont Lasix. Albumin also started. (6) Bradycardia: Dopamine drip (7) COPD (chronic obstructive pulmonary disease): chronic stable (8) Obesity hypoventilation syndrome: (9) Anemia: 2/2 acute blood loss and multiple comorbidities/phlebotomy Patient received 1 unit PRBC on 07/08 in setting of hemoglobin drop to 7.4 Continue to monitor H&H Patient has had significant output cumulatively from MAYELIN drain #1 and #2 (10) Post-operative state: (11) DVT prophylaxis: SQ Heparin Dispo: remains in ICU, will need rehab when recovered. Conditional Code--no shocks or compressions DO Vicente Rosenthal Hospitalist Admission and Anticipated Discharge Date Admission Date: July 07, 2020 Subjective 79-year-old man readmitted for complication of recent surgery. Currently has a perforated viscus and is status post exploratory laparotomy with repair of gastrostomy, replacement of gastrostomy tube and abdominal washout by Dr. Damon on 07/06. He remains intubated and sedated in the ICU on dopamine for bradycardia. Review of systems, therefore, cannot be obtained. Review of Systems Review of Systems: Unobtainable due to endotracheal tube and Unobtainable due to reduced consciousness Physical Exam Physical Exam: CONSTITUTIONAL: obese, vitals as above, intubated and sedated EYES: PERRL, normal conjunctivae ENT: external ear and nose normal, ETT in place RESPIRATORY: upper airway sounds obscuring auscultation, however, mostly clear with good airflow throughout,no wheezes or rales. CARDIOVASCULAR: regular rate and rhythm, S1 and 2 heard without murmurs, gallops or rubs, no JVD, no peripheral edema GASTROINTESTINAL: soft, surgical wound covered with dressing that is c/d/i MUSCULOSKELETAL: strength 5/5 throughout, head is normocephalic and atraumatic, neck supple, normal palpation of chest wall without tenderness SKIN: warm and dry NEUROLOGIC: sedated, limited exam Results & Data Results & Data ([facility]) Vital Signs (Past 12 Hours) Vital Signs Temp Pulse Resp BP Pulse Ox 07/13/20 11:11 80 17 90 07/13/20 08:00 71 07/13/20 07:15 36.9 C 71 97 07/13/20 07:09 67 17 97 07/13/20 07:00 36.8 C 82 109/72 92 07/13/20 06:45 36.8 C 72 92 07/13/20 06:30 36.8 C 74 92 07/13/20 06:15 36.8 C 65 97 07/13/20 06:00 36.8 C 77 110/69 92 07/13/20 05:45 36.8 C 73 90 07/13/20 05:30 36.8 C 79 91 07/13/20 05:15 36.8 C 71 93 07/13/20 05:00 36.7 C 75 111/68 93 07/13/20 04:45 36.7 C 92 H 95 07/13/20 04:30 36.7 C 69 92 07/13/20 04:15 36.7 C 79 94 07/13/20 04:08 80 18 91 07/13/20 04:00 36.7 C 64 138/80 96 07/13/20 03:45 36.8 C 70 91 07/13/20 03:30 36.8 C 75 91 07/13/20 03:15 36.8 C 72 91 07/13/20 03:02 36.8 C 81 113/63 91 07/13/20 03:00 36.8 C 76 91 07/13/20 02:45 36.9 C 81 89 L 07/13/20 02:30 36.9 C 85 96 07/13/20 02:15 36.9 C 93 H 82 L 07/13/20 02:00 36.9 C 81 87/61 L 88 L 07/13/20 01:45 36.9 C 79 89 L 07/13/20 01:30 36.9 C 76 90 07/13/20 01:15 36.8 C 71 94 07/13/20 01:00 36.8 C 79 83/53 L 89 L Laboratory Results Short CBC 07/13/20 Range/Units 03:47 WBC 16.58 H (4.8-10.8) K/uL Hgb 10.2 L (14.0-18.0) g/dL Hct 31.4 L (42-52) % Plt Count 494 H (130-400) K/uL BMP 07/12/20 07/13/20 07/13/20 19:52 03:47 07:36 Sodium 138 Cancelled 137 Potassium 3.4 L Cancelled 3.8 Chloride 100 Cancelled 99 Carbon Dioxide 32 Cancelled 31 BUN 11 Cancelled 10 Creatinine 0.46 L Cancelled 0.53 L Glucose 120 H Cancelled 124 H Calcium 8.9 Cancelled 8.8 Liver Function 07/13/20 07/13/20 Range/Units 03:47 07:36 Total Bilirubin Cancelled 0.6 AST Cancelled 13 L ALT Cancelled 14 Alkaline Phosphatase Cancelled 104 Albumin Cancelled 2.4 L Medications Administered Current Inpatient Medications Atropine Sulfate (Atropine Sulfate 0.1 Mg/Ml 5ml Syr) 0.5 mg IV ONE PRN PRN Reason: bradycardia, sustained HR < 40 Stop: 08/09/20 14:01 Fentanyl Citrate (Fentanyl Bolus From Bag) 50 mcg IV Q60M PRN PRN Reason: Pain or Agitation Stop: 07/21/20 02:45 Last Admin: 07/09/20 16:17 Dose: 50 mcg Documented by: Heparin Sodium (Beef Lung) (Heparin 10 Unit/Ml 5 Ml Flush) 5 ml FLUSH PRN PRN PRN Reason: Flush Stop: 08/09/20 20:58 Last Admin: 07/10/20 21:15 Dose: 5 ml Documented by: Heparin Sodium (Porcine) (Heparin Sod 5,000 Unit/0.5 Ml Vial) 7,500 units SQ BID YOSSI Stop: 08/07/20 20:59 Last Admin: 07/13/20 10:44 Dose: 7,500 units Documented by: Sodium Chloride (Nss 1000ml) 1,000 mls @ 30 mls/hr IV .Q24H YOSSI Stop: 08/06/20 02:28 Last Admin: 07/12/20 15:57 Dose: 30 mls/hr Documented by: Famotidine 20 mg/ Syringe 5 mls @ 2.5 mls/min IV Q12H YOSSI Stop: 08/06/20 08:59 Last Admin: 07/13/20 09:32 Dose: 2.5 mls/min Documented by: Midazolam HCl (Versed) 125 mg in 250 mls @ 0 mls/hr IV .Q0M YOSSI; Protocol Stop: 08/06/20 02:59 Last Admin: 07/12/20 07:50 Dose: Not Given Documented by: Fentanyl Citrate (Fentanyl Drip) 1,250 mcg in 250 mls @ 5 mls/hr IV .Q50H YOSSI; Protocol Stop: 07/21/20 02:59 Last Titration: 07/13/20 09:05 Dose: 25 mcg/hr, 5 mls/hr Documented by: Norepinephrine Bitartrate (Levophed/D5w) 32 mg in 250 mls @ 0 mls/hr IV .Q0M YOSSI; Protocol Stop: 08/06/20 10:44 Last Titration: 07/11/20 17:12 Dose: Infused Documented by: Caspofungin 50 mg/ Sodium (Chloride) 260 mls @ 260 mls/hr IV DAILY YOSSI Stop: 07/18/20 08:59 Last Infusion: 07/13/20 10:37 Dose: Infused Documented by: Dopamine HCl/Dextrose (Dopamine / D5w) 400 mg in 250 mls @ 53.25 mls/hr IV .Q4H42M YOSSI; Protocol Stop: 08/08/20 00:59 Last Titration: 07/13/20 10:37 Dose: 10 mcg/kg/min, 53.3 mls/hr Documented by: Furosemide 40 mg/ Syringe 4 mls @ 4 mls/min IV BID17 YOSSI Stop: 08/09/20 12:59 Last Admin: 07/13/20 09:32 Dose: 4 mls/min Documented by: Meropenem 500 mg/ Syringe 10 mls @ 2 mls/min IV Q6H [facility]; Protocol Stop: 07/21/20 15:59 Last Admin: 07/13/20 09:32 Dose: 2 mls/min Documented by: Magnesium Sulfate/Dextrose (Magnesium Sulfate / D5w) 1 gm in 100 mls @ 50 mls/hr IV Q2H [facility] Stop: 07/13/20 12:59 Last Admin: 07/13/20 10:44 Dose: 50 mls/hr Documented by: Potassium Chloride (K Aman / Wtr) 20 meq in 100 mls @ 50 mls/hr IV Q2H [facility] Stop: 07/13/20 12:57 Last Admin: 07/13/20 10:43 Dose: 50 mls/hr Documented by: Sodium Phosphate 15 mmol/ (Sodium Chloride) 255 mls @ 88 mls/hr IV ONE ONE Stop: 07/13/20 12:53 Last Admin: 07/13/20 10:03 Dose: 88 mls/hr Documented by: Insulin Aspart (Insulin Aspart 100 Units/Ml 3 Ml Pen) 0 units SC Q6 [facility]; Protocol Stop: 08/06/20 13:14 Last Admin: 07/13/20 12:02 Dose: Not Given Documented by: Midazolam HCl (Midazolam Bolus From Bag) 2 mg IV Q60M PRN PRN Reason: Sedation Stop: 08/06/20 02:45 Midodrine (Midodrine Hcl 10 Mg Tab) 10 mg PO Q8@0600,1300,1800 [facility] Stop: 08/11/20 12:59 Last Admin: 07/13/20 05:26 Dose: 10 mg Documented by: Miscellaneous (Icu Electrolyte Replacement Protocol) 1 ea N/A BID@18 [facility]; Protocol Stop: 07/20/20 17:59 Miscellaneous Information (Meropenem Consult Acitve) 1 ea N/A UD PRN PRN Reason: Consult Stop: 08/08/20 10:24 Nutritional Formula (Peptamen Intense Vhp 1.0 Ata 1,000 Ml Bag) 1,000 ml GT UD [facility]; Protocol Stop: 08/09/20 13:44 Last Admin: 07/13/20 01:48 Dose: 1,000 ml Documented by: Sterile Water (Tube Feeding Water Flush) 30 ml GT Q4H [facility] Stop: 08/09/20 15:59 Last Admin: 07/13/20 10:34 Dose: 30 ml Documented by:
[2020-07-13] MEDS: MAX Conc 128mcg/mL; 32mg in 250mL IV SCH ×4 (13:23→14:51)
[2020-07-13] MEDS: fentaNYL DRIP 1,250 MCG/250 ML BAG IV SCH ×3 (14:49→15:54)
--- NOTE | 2020-07-13 15:24 | XRay Report ---
KUB CLINICAL HISTORY: Postoperative examination. No bowel movement. FINDINGS: 2 AP, portable, supine abdominal radiographs are compared to study dated 07/10/2020 and corre lated with abdominal CT dated 06/13/2020. Skin clips project over the lower abdomen bilaterally. At [address] 3 catheters project over the pelvis. 2 catheters project over the upper abdomen. There is no radio graphic evidence of high-grade bowel obstruction. There are mildly distended and gas-filled bowel loo ps, possibly resolving ileus. Residual enteric contrast is noted in the stomach. No evidence of intra peritoneal free air is identified on these supine images. The skeletal structures are osteopenic and grossly intact. IMPRESSION: 1. Numerous catheters project over the abdomen. Clinical correlation will be required. 2. There is no radiographic evidence of high-grade bowel obstruction. Mildly distended and gas-filled bowel loops likely represent ileus. Clinical correlation will be required. 3. Residual enteric contrast is noted in the stomach. Electronically signed by: Jose Thornton M.D. 07/13/2020 3:22 PM
[2020-07-14] MEDS: DOPamine / D5W 400 MG/250 ML BAG IV SCH ×3 (00:17→18:34)
[2020-07-14] MEDS: INSULIN ASPART 100 UNITS/ML 3 ML PEN SC SCH ×4 (00:52→17:35)
[2020-07-14] MEDS: TUBE FEEDING WATER FLUSH GT SCH ×5 (00:57→15:17)
[2020-07-14] MEDS: PEPTAMEN INTENSE VHP 1.0 CAL 1,000 ML BAG GT SCH (03:11)
[2020-07-14] MEDS: MEROPENEM 500 MG in SYRINGE 0 ML IV SCH ×4 (04:01→23:02)
[2020-07-14 04:21] LABS: iSTAT Arterial Blood Gas HCO3 33 meg/L (19-24); iSTAT Arterial Blood Gas pCO2 42 mmHg (35-46); iSTAT Arterial Blood Gas pH 7.51 (7.35-7.45); iSTAT Arterial Blood Gas pO2 87 mmHg (80-95); iSTAT Carbon Dioxide 34 mmol/L (24-31); iSTAT Hematocrit 30 % (42-52); iSTAT Hemoglobin 10.2 g/dl (14.0-18.0); iSTAT Potassium 3.6 mmol/L (3.3-5.0); iSTAT Sodium 135 mmol/L (135-144)
[2020-07-14] MEDS: MIDODRINE HCL 10 MG TAB PO SCH ×3 (05:26→18:18)
[2020-07-14 05:32] LABS: Hematocrit (blood only) 30.1 % (42-52); Mean Corpuscular Hemoglobin 29.1 pg (25-34); Mean Corpuscular Hgb Conc 33.2 g/dL (32-36); Mean Corpuscular Volume 87.5 fL (80-100); Mean Platelet Volume 8.6 fL (7.4-10.4); Platelet Count 479 K/uL (130-400); RDW Coefficient of Variation 16.2 % (11.5-14.5); RDW Standard Deviation 51.3 fL (36.4-46.3); Red Blood Count 3.44 M/uL (4.7-6.1); White Blood Count 15.78 K/uL (4.8-10.8)
[2020-07-14 05:59] LABS: Albumin Level 2.3 gm/dl (3.4-5.0); BUN Creatinine Ratio 18.7 (10-20); Calcium 8.3 mg/dl (8.5-10.1); Creatinine Clr Calc Pharmacy 159.6 ml/min; Est GFR (African American) 113.2; Est GFR (Non-African American) 97.7; Magnesium 2.2 mg/dl (1.8-2.4); Potassium 3.6 mmol/L (3.5-5.1)
[2020-07-14 06:04] LABS: Basophils # (auto) 0.03 K/uL (0-0.2); Basophils % (auto) 0.2 %; Eosinophils # (auto) 0.14 K/uL (0-0.5); Eosinophils % (auto) 0.9 %; Immature Granulocytes # (auto) 0.97 K/uL (0.00-0.02); Immature Granulocytes % (auto) 6.1 %; Lymphocytes # (auto) 2.58 K/uL (1.2-3.4); Lymphocytes % (auto) 16.3 %; Monocytes # (auto) 1.47 K/uL (0.11-0.59); Monocytes % (auto) 9.3 %; Neutrophils # (auto) 10.59 K/uL (1.4-6.5); Neutrophils % (auto) 67.2 %
[2020-07-14 06:05] LABS: Albumin Globulin Ratio 0.7 (0.9-2); Bilirubin,Total 0.6 mg/dl (0.2-1); Globulin 3.4 gm/dl (2.5-4.0); Phosphorus 2.9 mg/dl (2.5-4.9); Prealbumin 6.9 mg/dl (20-40); Total Protein 5.7 gm/dl (6.4-8.2)
[2020-07-14] MEDS: ICU ELECTROLYTE REPLACEMENT PROTOCOL SCH ×2 (06:24→16:49)
[2020-07-14] MEDS ORDERED: POTASSIUM CHLORIDE 20 MEQ/15 ML UDC PO STA (06:26)
[2020-07-14] MEDS: POTASSIUM CHLORIDE / WTR 20 MEQ/100 ML PLCT IV SCH ×2 (06:34→08:22)
--- NOTE | 2020-07-14 07:15 | Intensivist Progress Note ---
Date of Service July 14, 2020 Assessment & Plan Admission and Anticipated Discharge Date Admission Date: July 07, 2020 Results & Data Results & Data ([facility]) Vital Signs (Past 12 Hours) Vital Signs Temp Pulse Resp BP Pulse Ox 07/14/20 05:08 37.4 C 90 114/70 94 07/14/20 05:00 37.4 C 93 H 95 07/14/20 04:45 37.5 C 97 H 93 07/14/20 04:30 37.4 C 97 H 95 07/14/20 04:15 37.4 C 83 95 07/14/20 04:00 37.4 C 87 15 112/62 97 07/14/20 03:45 37.4 C 86 97 07/14/20 03:30 37.4 C 86 98 07/14/20 03:15 37.4 C 86 96 07/14/20 03:00 37.3 C 88 116/67 96 07/14/20 02:45 37.3 C 87 96 07/14/20 02:30 37.3 C 86 96 07/14/20 02:15 37.3 C 81 96 07/14/20 02:00 37.3 C 81 118/69 97 07/14/20 01:45 37.3 C 84 97 07/14/20 01:30 37.2 C 90 97 07/14/20 01:15 37.2 C 81 98 07/14/20 01:02 37.3 C 93 H 100 07/14/20 01:00 37.2 C 100 H 15 94/66 L 100 07/14/20 00:59 37.2 C 91 H 116/71 97 07/14/20 00:45 37.2 C 88 98 07/14/20 00:30 37.2 C 88 98 07/14/20 00:15 37.1 C 80 98 07/14/20 00:00 37.1 C 77 116/71 98 07/13/20 23:59 96 H 07/13/20 23:45 37.1 C 77 98 07/13/20 23:30 37.1 C 86 98 07/13/20 23:15 37.0 C 80 98 07/13/20 23:00 37.0 C 79 102/66 98 07/13/20 22:45 37.0 C 74 98 07/13/20 22:30 37.0 C 77 98 07/13/20 22:15 37.0 C 76 98 07/13/20 22:05 79 14 98 07/13/20 22:00 36.9 C 77 122/67 98 07/13/20 21:45 36.9 C 75 98 07/13/20 21:30 36.9 C 68 98 07/13/20 21:15 36.9 C 77 98 07/13/20 21:00 36.9 C 75 124/70 98 07/13/20 20:45 36.9 C 76 98 07/13/20 20:30 36.9 C 75 98 07/13/20 20:15 36.9 C 76 98 07/13/20 20:00 36.9 C 77 130/74 98 07/13/20 19:45 36.9 C 77 98 07/13/20 19:30 36.9 C 87 98
--- NOTE | 2020-07-14 07:45 | XRay Report ---
KUB HISTORY: Follow up study in a patient with abdominal distention ileus? COMPARISON: KUB 07/13/2020 FINDINGS: Midline and left lower quadrant skin jonh. At least 3 catheters are again noted projecti ng over the pelvis. At least 2 catheters project over the abdomen. There is moderate fecal retention. No urolith identified. No pneumatosis or pneumoperitoneum. The upper and left lateral abdomen are ex cluded from the [id number]. No definite obstruction identified. Redemonstrated and probable ileus pattern. IMPRESSION: 1. Limited exam as above with probable ileus. 2. Numerous catheters are again noted projecting over the abdomen and pelvis. ACT 112: Negative or not required by law. The above report was generated using voice recognition software. It may contain grammatical, syntax o r spelling errors. Electronically signed by: Charles Macias M.D. 07/14/2020 7:44 AM
--- NOTE | 2020-07-14 07:51 | XRay Report ---
XR chest 1V portable CLINICAL HISTORY: Respiratory failure COMPARISON STUDY: 07/13/2020 FINDINGS: There is an endotracheal tube 4 cm above the jie. There is a left subclavian central teri ous catheter the tip of which projects over the superior vena cava. There is elevation of the right h emidiaphragm. There is persistent bilateral interstitial thickening. This could be secondary to mild pulmonary vascular congestion or interstitial infectious/inflammatory process. The findings remain es sentially unchanged.[There is a right upper quadrant catheter likely representing a surgical drain IMPRESSION: Stable findings ACT 112: Negative or not required by law. Electronically signed by: Mike Thomas M.D. 07/14/2020 7:50 AM
[2020-07-14] MEDS: SODIUM CHLORIDE 0.9% 1000ML 1,000 ML IV SCH (07:53)
[2020-07-14] MEDS: FUROSEMIDE 40 MG in SYRINGE 0 ML IV SCH ×2 (08:18→16:49)
[2020-07-14] MEDS: HEPARIN SOD 5,000 UNIT/0.5 ML VIAL SQ SCH ×2 (08:18→20:33)
[2020-07-14] MEDS: FAMOTIDINE 20 MG in SYRINGE 3 ML IV SCH ×2 (08:21→20:33)
[2020-07-14] MEDS: CASPOFUNGIN 50 MG in SODIUM CHLORIDE 0.9% 250 ML IV SCH (08:21)
[2020-07-14] MEDS ORDERED: METOCLOPRAMIDE HCL 10 MG in SYRINGE 0 ML IV ONE (10:30)
[2020-07-14] MEDS: fentaNYL DRIP 1,250 MCG/250 ML BAG IV SCH (10:38)
--- NOTE | 2020-07-14 11:21 | Critical Care Progress Note ---
Date of Service July 14, 2020 Assessment & Plan (1) Bowel perforation: (2) Septic shock: (3) Anemia: (4) Renal failure, acute: (5) Diastolic CHF, chronic: (6) Obesity hypoventilation syndrome: Impression: 79-year-old male status post exploratory laparotomy in the setting of free intraperitoneal air secondary to dislodgment of gastric tube resulting in peritonitis. He has bacteremia and fungemia and hypoxemic respiratory failure 24 Hour events: Still on dopamine. Recommendations: NEURO - Currently sedated with fentanyl. Continue daily sedation break. Continue with daily SBT's CARDIAC/VASCULAR - Severe sepsis with septic shock: The patient remains dependent on dopamine (using dopamine given bradycardia with Norepi). His random cortisol was normal. Trial of midodrine to see if we can get him off pressors. Low albumin also contributing. Prior echocardiogram showed grade 1 diastolic dysfunction. Follow-up transesophageal echocardiogram is deferred unless his cultures remain persistently positive. RESPIRATORY - VDRF Secondary to septic shock Continue with ventilatory support Keep RASS -1 Daily sedation holidays and SBT's History of obesity hypoventilation and is on BiPAP normally. GI/NUTRITION - Peritonitis secondary to dislodgment of G-tube. Surgically corrected. Continue trophic tube feeding as I doubt the patient will improve significantly without significant improvement in his nutritional status. As his hemodynamics improve, will advance tube feeds to goal. Given the patient's fungal bloodstream infection, is not a candidate for PPN or TPN. RENAL/LYTES - Acute renal failure: Monitor BUNs/creatinine Replace electrolytes as needed - Ibanez in place - Strict I&Os. ENDO - Glycemic control per ICU protocol. Continue home Synthroid HEME - Stable hemoglobin and hematocrit status post transfusion. No evidence of ongoing blood loss. Continue to trend at this point time. 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 On meropenem and Caspofungin. Given the possibility of Enterococcus in the peritoneal fluid, will continue Carbapenem for now. Awaiting speciation of fungus but preliminarily appears to be 2 separate species, 1 albicans and one nonalbicans. We will continue caspofungin. Anticipate that he will need at least 2 weeks of therapy with antifungals and potentially 7 to 10 days of antibacterial therapy. Ophthalmology exam demonstrated no evidence of endophthalmitis. His surveillance cultures are currently no growth to date. due to Fungemia, all lines changed out 07/11. ID consultation reviewed --Prophylaxis VTE: Heparin subcu GI: Pepcid Lines: Left subclavian 07/11/2020, right radial 07/11/2020, positive ETT, positive Ibanez, MAYELIN drain Diet: Tube feeds Plan: In/out: -1790, urine output 4700. Overall -1.4 L since admission On the KUB there is still contrast appreciated near the gastric bulb. This has been present since almost 4 days. I would like to get input from surgery to see what they think of it. There is also ileus appreciated but no clear obstruction. Patient has had no bowel movements. There is decreased bowel sounds I will give dose of metoclopramide. Trial of extubation today. Repeat blood culture from 07/09/2020 are negative to date. Sensitivities for candidiasis still pending. Overall prognosis of the patient is guarded Patient's daughter Soniya was updated regarding his condition on the phone on 07/13/2020 I have personally spent 42 minutes of critical care time in the direct management of this patient. This is a life/limb threatening event. This includes time spent evaluating patient, direct bedside care, chart review, placing orders, interpretation of diagnostic studies, discussion with consultants, patient, and family members, as well as other required patient management activities. This time is exclusive of all separately billable procedures, and teaching time and separate from and in addition to any other critical care service time. Patient is critically ill at this point time with multiorgan system dysfunction. Daughter updated. Prognosis for functional recovery is guarded. Daughter has made decision to not pursue CPR, or defibrillation in the event of clinical deterioration which I think is appropriate. We will continue to support in hopes of recovery. Admission and Anticipated Discharge Date Admission Date: July 07, 2020 Subjective Patient seen and examined at bedside. No acute distress, no adverse events overnight Patient is still on Levophed 0.05, dopamine 5 the time of examination He was also on fentanyl 50 MCG Patient is answering simple questions following simple commands. Denied any chest pain, denied any headache, denied any abdominal pain. He was breathing with the vent but on asking to take deep breath he used to be over the vent as well. Afebrile Review of Systems Review of Systems: All systems reviewed & are unremarkable except as noted in Subjective Physical Exam Physical Exam: Constitutional: No acute distress HEENT: EOMI, PERRLA, positive ETT Respiratory system: Decreased air entry on the right side, no wheeze, no rhonchi, mild crackles bilateral lower lobes CVS: S1-S2 positive, no murmurs or gallops, distant heart sounds Abdomen: Soft, nontender, nondistended, decreased bowel sounds, MAYELIN drain in place, positive G-tube Extremities: +2 pulses bilaterally radialis/ dorsalis pedis, no cyanosis, +3 pitting edema bilateral Neuro: RASS -1, positive pupillary, positive gag, positive corneal, breathing over the vent, following simple commands Psych: Unable to assess G/U: Positive Ibanez Skin: no rashes, warm and dry Lymphatic: no cervical or axillary lymphadenopathy Results & Data Results & Data ([facility]) Vital Signs (Past 12 Hours) Vital Signs Temp Pulse Resp BP Pulse Ox 07/14/20 08:59 94 H 20 93 07/14/20 08:00 37.5 C 87 110/63 95 07/14/20 07:32 94 H 17 95 07/14/20 07:00 37.4 C 79 123/70 95 07/14/20 05:08 37.4 C 90 114/70 94 07/14/20 05:00 37.4 C 93 H 95 07/14/20 04:45 37.5 C 97 H 93 07/14/20 04:30 37.4 C 97 H 95 07/14/20 04:15 37.4 C 83 95 07/14/20 04:00 37.4 C 87 15 112/62 97 07/14/20 03:45 37.4 C 86 97 07/14/20 03:30 37.4 C 86 98 07/14/20 03:15 37.4 C 86 96 07/14/20 03:00 37.3 C 88 116/67 96 07/14/20 02:45 37.3 C 87 96 07/14/20 02:30 37.3 C 86 96 07/14/20 02:15 37.3 C 81 96 07/14/20 02:00 37.3 C 81 118/69 97 07/14/20 01:45 37.3 C 84 97 07/14/20 01:30 37.2 C 90 97 07/14/20 01:15 37.2 C 81 98 07/14/20 01:02 37.3 C 93 H 100 07/14/20 01:00 37.2 C 100 H 15 94/66 L 100 07/14/20 00:59 37.2 C 91 H 116/71 97 07/14/20 00:45 37.2 C 88 98 07/14/20 00:30 37.2 C 88 98 07/14/20 00:15 37.1 C 80 98 07/14/20 00:00 37.1 C 77 116/71 98 07/13/20 23:59 96 H 07/13/20 23:45 37.1 C 77 98 07/13/20 23:30 37.1 C 86 98 07/13/20 23:15 37.0 C 80 98 07/14/20 05:20 07/14/20 05:20 Coding Level of Care Code Critical Care 1st 30-74 mins Diagnoses Bowel perforation K63.1 Septic shock A41.9; R65.21 Anemia D64.9 Renal failure, acute N17.9 Diastolic CHF, chronic I50.32 Obesity hypoventilation syndrome E66.2 Time Spent (min) 42
--- NOTE | 2020-07-14 14:14 | Surgery Progress Note ---
Date of Service July 14, 2020 Assessment & Plan (1) Perforated viscus: d/w Dr. Gabriel. KUB still shows contrast in stomach not moving. also having high residuals so unable to use gastric tube for feeds. I reviewed the xray. the large 30 cc balloon needed to keep g-tube in place might be obstructing the pylorus. I am worried that if I deflate the balloon it may dislodge again which would be catastrophic. will d/w ICU team....maybe we can try TPN for a week or so at which point I could deflate the balloon to around 20 cc's and see if anything passes at that point. difficult scenario for sure. Admission and Anticipated Discharge Date Admission Date: July 07, 2020 Subjective pt extubated earlier today. not verbalizing currently. Physical Exam Physical Exam: abd: soft. wounds look good. no sign of infection. g-tube in place. Results & Data ([facility]) Vital Signs (Past 12 Hours) Vital Signs Temp Pulse Resp BP Pulse Ox 07/14/20 12:48 89 36 H 95 07/14/20 11:45 37.6 C H 88 96 07/14/20 11:30 37.5 C 90 96 07/14/20 11:15 37.6 C H 89 95 07/14/20 11:00 37.5 C 92 H 108/73 96 07/14/20 10:45 37.5 C 91 H 96 07/14/20 10:30 37.5 C 91 H 95 07/14/20 10:15 37.5 C 92 H 95 07/14/20 10:00 37.5 C 91 H 105/71 94 07/14/20 09:45 37.5 C 90 93 07/14/20 09:30 37.5 C 89 92 07/14/20 09:15 37.5 C 88 93 07/14/20 09:00 37.5 C 90 108/66 92 07/14/20 08:59 94 H 20 93 07/14/20 08:45 37.5 C 87 94 07/14/20 08:30 37.5 C 87 94 07/14/20 08:15 37.5 C 91 H 95 07/14/20 08:00 37.5 C 87 110/63 95 07/14/20 07:32 94 H 17 95 07/14/20 07:00 37.4 C 79 123/70 95 07/14/20 05:08 37.4 C 90 114/70 94 07/14/20 05:00 37.4 C 93 H 95 07/14/20 04:45 37.5 C 97 H 93 07/14/20 04:30 37.4 C 97 H 95 07/14/20 04:15 37.4 C 83 95 07/14/20 04:00 37.4 C 87 15 112/62 97 07/14/20 03:45 37.4 C 86 97 07/14/20 03:30 37.4 C 86 98 07/14/20 03:15 37.4 C 86 96 07/14/20 03:00 37.3 C 88 116/67 96 07/14/20 02:45 37.3 C 87 96 07/14/20 02:30 37.3 C 86 96 07/14/20 02:15 37.3 C 81 96 PG Care Time/CCT Total # of Minutes Spent Total Time Spent with Patient: Total time spent is greater than 50% in coordination of care (as documented) at patient's floor/unit and/or counseling patient: Coding Level of Care Code None Diagnoses Perforated viscus R19.8
--- NOTE | 2020-07-14 17:08 | Hospitalist Progress Note ---
Date of Service July 14, 2020 Assessment & Plan (1) Septic shock: Initial procedure 06/26 for recurrent sigmoid volvulus with exp laparotomy, sigmoidectomy and gastrostomy by Dr. Ware Represented 07/07 with unresponsiveness, abdominal pain, severe pain. S/P Exp Laparotomy on 07/07 setting of free intraperitoneal air with replacement of gastric tube and drains requiring close hemodynamic monitoring in setting of severe sepsis and now fungemia Discussed case peripherally with infectious disease specialist. Reviewed micro results. General thought is the franko source is the GI tract. He has quickly cleared the fungemia and repeat blood cultures are negative as of 07/09. Patient remains on dopamine for hemodynamic support for persistent septic shock. Persistent post-op ileus present. Per ID,IF TPN NEEEDED, IT WOULD BE REASONABLE TO PURSUE THIS NOW THAT FUNGEMIA HAS CLEARED. Cont 14 days treatment of caspofungin (2) Postoperative ileus: No BM since second surgery, high residual in stomach of tube feeds which have been running at a trickle rate. KUB reveals evidence of ileus. NPO at this time. He is extubated today. Consider TPN if no improvement of ileus-defer management to stereo operator. (3) Bowel perforation: viscus rupture with merrem on board. Per ID, typically antibiotic course lasts only 7 days post washout, unless patient remains hemodynamically unstable or shock persists. For now, would cont abx. Discussed with Brand Development Manager. (4) Fungemia: Cont Caspofungin for 14 day course. No need for ANASTASIA at this time without persistent bloodstream infection. All lines were changed out on 07/11 (5) Diastolic CHF, chronic: Cont Lasix BID (6) Bradycardia: Dopamine drip with Levophed also on board. (7) COPD (chronic obstructive pulmonary disease): chronic stable (8) Obesity hypoventilation syndrome: (9) Anemia: 2/2 acute blood loss and multiple comorbidities/phlebotomy Patient received 1 unit PRBC on 07/08 in setting of hemoglobin drop to 7.4 Continue to monitor H&H Patient has had significant output cumulatively from MAYELIN drain #1 and #2 H/H remains 01/03 today. (10) Post-operative state: (11) DVT prophylaxis: SQ Heparin Dispo: remains in ICU, will need rehab when recovered. Conditional Code--no shocks or compressions Karli Aguilar DO [facility] Hospitalist Admission and Anticipated Discharge Date Admission Date: July 07, 2020 Subjective 79-year-old man readmitted for complication of recent open sigmoidectomy for recurrent sigmoid volvulus on 06/26. Currently has a perforated viscus and is status post exploratory laparotomy with repair of gastrostomy, replacement of gastrostomy tube and abdominal washout by Dr. Damon on 07/06. Extubated today and remains altered ROS cannot be obtained as patient is unable to follow instructions or answer questions at this time Remains on dopamine and levophed Persistent post-op ileus Will reach out to ID Review of Systems Review of Systems: All systems reviewed & are unremarkable except as noted in Subjective Physical Exam Physical Exam: CONSTITUTIONAL: obese, vitals as above, NAD EYES: normal conjunctivae ENT: external ear and nose normal, MMM RESPIRATORY: course rhonchi throughout, no rales or wheezing. No increased respiratory distress. CARDIOVASCULAR: regular rate and rhythm, S1 and 2 heard without murmurs, gallops or rubs, no JVD, trace peripheral edema bilaterally GASTROINTESTINAL: soft, surgical wound covered with dressing that is c/d/i MUSCULOSKELETAL: strength 5/5 throughout, head is normocephalic and atraumatic, neck supple, normal palpation of chest wall without tenderness SKIN: warm and dry NEUROLOGIC: sedated, limited exam Results & Data Results & Data ([facility]) Vital Signs (Past 12 Hours) Vital Signs Temp Pulse Resp BP Pulse Ox 07/14/20 12:48 89 36 H 95 07/14/20 11:45 37.6 C H 88 96 07/14/20 11:30 37.5 C 90 96 07/14/20 11:15 37.6 C H 89 95 07/14/20 11:00 37.5 C 92 H 108/73 96 07/14/20 10:45 37.5 C 91 H 96 07/14/20 10:30 37.5 C 91 H 95 07/14/20 10:15 37.5 C 92 H 95 07/14/20 10:00 37.5 C 91 H 105/71 94 07/14/20 09:45 37.5 C 90 93 07/14/20 09:30 37.5 C 89 92 07/14/20 09:15 37.5 C 88 93 07/14/20 09:00 37.5 C 90 108/66 92 07/14/20 08:59 94 H 20 93 07/14/20 08:45 37.5 C 87 94 07/14/20 08:30 37.5 C 87 94 07/14/20 08:15 37.5 C 91 H 95 07/14/20 08:00 37.5 C 87 110/63 95 07/14/20 07:32 94 H 17 95 07/14/20 07:00 37.4 C 79 123/70 95 07/14/20 05:08 37.4 C 90 114/70 94 Laboratory Results Short CBC 07/14/20 Range/Units 05:20 WBC 15.78 H (4.8-10.8) K/uL Hgb 10.0 L (14.0-18.0) g/dL Hct 30.1 L (42-52) % Plt Count 479 H (130-400) K/uL BMP 07/14/20 05:20 Sodium 137 Potassium 3.6 Chloride 98 Carbon Dioxide 32 BUN 11 Creatinine 0.57 L Glucose 122 H Calcium 8.3 L Liver Function 07/14/20 Range/Units 05:20 Total Bilirubin 0.6 (0.2-1) mg/dl AST 12 L (15-37) U/L ALT 14 (12-78) U/L Alkaline Phosphatase 112 (45-117) U/L Albumin 2.3 L (3.4-5.0) gm/dl Medications Administered Current Inpatient Medications Atropine Sulfate (Atropine Sulfate 0.1 Mg/Ml 5ml Syr) 0.5 mg IV ONE PRN PRN Reason: bradycardia, sustained HR < 40 Stop: 08/09/20 14:01 Heparin Sodium (Beef Lung) (Heparin 10 Unit/Ml 5 Ml Flush) 5 ml FLUSH PRN PRN PRN Reason: Flush Stop: 08/09/20 20:58 Last Admin: 07/10/20 21:15 Dose: 5 ml Documented by: Heparin Sodium (Porcine) (Heparin Sod 5,000 Unit/0.5 Ml Vial) 7,500 units SQ BID YOSSI Stop: 08/07/20 20:59 Last Admin: 07/14/20 08:18 Dose: 7,500 units Documented by: Famotidine 20 mg/ Syringe 5 mls @ 2.5 mls/min IV Q12H YOSSI Stop: 08/06/20 08:59 Last Admin: 07/14/20 08:21 Dose: 2.5 mls/min Documented by: Norepinephrine Bitartrate (Levophed/D5w) 32 mg in 250 mls @ 3.445 mls/hr IV .Q24H YOSSI; Protocol Stop: 08/06/20 10:44 Last Admin: 07/13/20 14:51 Dose: Not Given Documented by: Caspofungin 50 mg/ Sodium (Chloride) 260 mls @ 260 mls/hr IV DAILY YOSSI Stop: 07/23/20 23:59 Last Infusion: 07/14/20 09:28 Dose: Infused Documented by: Dopamine HCl/Dextrose (Dopamine / D5w) 400 mg in 250 mls @ 26.625 mls/hr IV .Q9H24M [facility]; Protocol Stop: 08/08/20 00:59 Last Admin: 07/14/20 09:28 Dose: 5 mcg/kg/min, 26.6 mls/hr Documented by: Furosemide 40 mg/ Syringe 4 mls @ 4 mls/min IV BID17 [facility] Stop: 08/09/20 12:59 Last Admin: 07/14/20 16:49 Dose: 4 mls/min Documented by: Meropenem 500 mg/ Syringe 10 mls @ 2 mls/min IV Q6H [facility]; Protocol Stop: 07/19/20 23:59 Last Admin: 07/14/20 16:49 Dose: 2 mls/min Documented by: Insulin Aspart (Insulin Aspart 100 Units/Ml 3 Ml Pen) 0 units SC Q6 YOSSI; P rotocol Stop: 08/06/20 13:14 Last Admin: 07/14/20 11:46 Dose: Not Given Documented by: Midodrine (Midodrine Hcl 10 Mg Tab) 10 mg PO Q8@0600,1300,1800 [facility] Stop: 08/11/20 12:59 Last Admin: 07/14/20 12:23 Dose: 10 mg Documented by: Miscellaneous (Icu Electrolyte Replacement Protocol) 1 ea N/A BID@06,18 YOSSI; Protocol Stop: 07/20/20 17:59 Last Admin: 07/14/20 16:49 Dose: Not Given Documented by: Miscellaneous Information (Meropenem Consult Acitve) 1 ea N/A UD PRN PRN Reason: Consult Stop: 08/08/20 10:24 Nutritional Formula (Peptamen Intense Vhp 1.0 Ata 1,000 Ml Bag) 1,000 ml GT UD YOSSI; Protocol Stop: 08/09/20 13:44 Last Admin: 07/14/20 03:11 Dose: 1,000 ml Documented by: Sterile Water (Tube Feeding Water Flush) 30 ml GT Q4H YOSSI Stop: 08/09/20 15:59 Last Admin: 07/14/20 15:17 Dose: Not Given Documented by:
[2020-07-14] MEDS ORDERED: Nursing to Pharmacy Communication SCH (18:30)
[2020-07-14] MEDS: MAX Conc 128mcg/mL; 32mg in 250mL IV SCH (18:33)
[2020-07-15] MEDS: INSULIN ASPART 100 UNITS/ML 3 ML PEN SC SCH ×4 (00:31→17:48)
[2020-07-15] MEDS: MEROPENEM 500 MG in SYRINGE 0 ML IV SCH ×4 (04:21→20:32)
[2020-07-15 05:30] LABS: Basophils # (auto) 0.05 K/uL (0-0.2); Basophils % (auto) 0.4 %; Eosinophils # (auto) 0.11 K/uL (0-0.5); Eosinophils % (auto) 0.9 %; Hematocrit (blood only) 29.7 % (42-52); Hemoglobin 9.9 g/dL (14.0-18.0); Immature Granulocytes # (auto) 0.58 K/uL (0.00-0.02); Immature Granulocytes % (auto) 4.6 %; Lymphocytes # (auto) 2.37 K/uL (1.2-3.4); Lymphocytes % (auto) 18.7 %; Mean Corpuscular Hemoglobin 29.4 pg (25-34); Mean Corpuscular Hgb Conc 33.3 g/dL (32-36); Mean Corpuscular Volume 88.1 fL (80-100); Mean Platelet Volume 8.9 fL (7.4-10.4); Monocytes # (auto) 1.43 K/uL (0.11-0.59); Monocytes % (auto) 11.3 %; Neutrophils # (auto) 8.11 K/uL (1.4-6.5); Neutrophils % (auto) 64.1 %; Platelet Count 494 K/uL (130-400); RDW Coefficient of Variation 16.2 % (11.5-14.5); RDW Standard Deviation 51.6 fL (36.4-46.3); Red Blood Count 3.37 M/uL (4.7-6.1); White Blood Count 12.65 K/uL (4.8-10.8)
[2020-07-15 05:57] LABS: Albumin Level 2.2 gm/dl (3.4-5.0); BUN Creatinine Ratio 18.9 (10-20); Calcium 8.2 mg/dl (8.5-10.1); Creatinine Clr Calc Pharmacy 159.6 ml/min; Est GFR (African American) 113.2; Est GFR (Non-African American) 97.7; Magnesium 2.2 mg/dl (1.8-2.4); Potassium 3.2 mmol/L (3.5-5.1)
[2020-07-15 05:59] LABS: Albumin Globulin Ratio 0.6 (0.9-2); Bilirubin,Total 0.5 mg/dl (0.2-1); Globulin 3.7 gm/dl (2.5-4.0); Phosphorus 2.9 mg/dl (2.5-4.9); Total Protein 5.9 gm/dl (6.4-8.2)
[2020-07-15] MEDS: DOPamine / D5W 400 MG/250 ML BAG IV SCH (06:14)
[2020-07-15] MEDS: ICU ELECTROLYTE REPLACEMENT PROTOCOL SCH ×2 (06:19→16:42)
[2020-07-15] MEDS: POTASSIUM CHLORIDE / WTR 20 MEQ/100 ML PLCT IV SCH ×4 (06:45→12:32)
[2020-07-15] MEDS: FAMOTIDINE 20 MG in SYRINGE 3 ML IV SCH ×2 (08:11→20:32)
[2020-07-15] MEDS: CASPOFUNGIN 50 MG in SODIUM CHLORIDE 0.9% 250 ML IV SCH (08:11)
[2020-07-15] MEDS: FUROSEMIDE 40 MG in SYRINGE 0 ML IV SCH ×2 (08:11→16:42)
[2020-07-15] MEDS: HEPARIN SOD 5,000 UNIT/0.5 ML VIAL SQ SCH ×2 (08:12→20:33)
--- NOTE | 2020-07-15 08:33 | Surgery Progress Note ---
Date of Service July 15, 2020 Assessment & Plan (1) Perforated viscus: appears to be clinically improving suspect large Gtube balloon essentially obstructing the pylorus...needs to be kept on low intermittent suction. discussed with RN to start TPN today MAYELIN's improving. keep for now Admission and Anticipated Discharge Date Admission Date: July 07, 2020 Subjective pt awake today..conversive. oriented.... denies pain Physical Exam Physical Exam: alert. oriented abd: soft. wounds look good. no sign of infection. Gtube in place. no leakage MAYELIN's scant/serous at this point Results & Data ([facility]) Vital Signs (Past 12 Hours) Vital Signs Temp Pulse Resp BP Pulse Ox 07/15/20 05:25 75 24 98 07/15/20 04:01 36.9 C 81 24 112/70 95 07/15/20 03:30 36.9 C 69 26 H 95 07/15/20 03:01 36.9 C 76 26 H 116/67 96 07/15/20 02:30 36.9 C 81 23 97 07/15/20 02:10 83 28 H 96 07/15/20 02:00 37.0 C 77 25 H 105/68 93 07/15/20 01:30 37.0 C 82 27 H 92 07/15/20 01:01 37.0 C 86 24 112/72 96 07/15/20 00:30 37.0 C 80 24 93 07/15/20 00:00 37.0 C 80 24 115/68 96 07/14/20 23:30 37.0 C 80 26 H 96 07/14/20 23:00 37.0 C 85 25 H 119/65 96 07/14/20 22:30 37.0 C 79 25 H 97 07/14/20 22:00 37.0 C 87 26 H 105/67 97 07/14/20 21:50 85 24 93 07/14/20 21:30 37.0 C 84 31 H 95 07/14/20 21:00 37.0 C 82 31 H 114/71 93 07/14/20 20:35 37.1 C 84 30 H 112/70 93 PG Care Time/CCT Total # of Minutes Spent Total Time Spent with Patient: Total time spent is greater than 50% in coordination of care (as documented) at patient's floor/unit and/or counseling patient: Coding Level of Care Code None Diagnoses Perforated viscus R19.8
--- NOTE | 2020-07-15 09:31 | Cardiology Progress Note ---
Date of Service July 15, 2020 Assessment & Plan (1) Bradycardia: (2) Perforated viscus: (3) Fungemia: (4) Respiratory failure: Most recent bradycardia on telemetry was on 07/09. Extubated 07/14/20. Telemetry 07/15/20 reveals SR in the 70s to 80s with chronic RBBB BP 96/49, MAP 65 by arterial line. On dopamine 5 mcg/kg/min, Norepinephrine 0.1 mcg/kg/min Midodrine 10 mg PO Q8. Agree with IV furosemide 40 mg IV BID, supplement potassium IV. SQ heparin 7,500 BID. (5) Sepsis: Admission and Anticipated Discharge Date Admission Date: July 07, 2020 Subjective Mr Jackson is seen in cardiology follow up. He was extubated on 07/14/20 and remains on an Oxymask, 2L O2/ min. Resting comfortably. Review of Systems Review of Systems: Unobtainable due to cognitive status Physical Exam Physical Exam: Temp Pulse Resp BP Pulse Ox 36.7 C 75 30 H 120/74 95 07/15/20 08:30 07/15/20 08:30 07/15/20 08:30 07/15/20 08:02 07/15/20 08:30 Cardiovascular: Rate/Rhythm: regular rhythm Extremities: + edema (1-2+ pedal , LE edema bilaterally. ) Results & Data ([facility]) Vital Signs (Past 12 Hours) Vital Signs Temp Pulse Resp BP Pulse Ox 07/15/20 08:30 36.7 C 75 30 H 95 07/15/20 08:02 36.7 C 81 27 H 120/74 95 07/15/20 08:00 36.7 C 79 30 H 95 07/15/20 07:30 36.7 C 78 24 97 07/15/20 07:00 36.8 C 80 26 H 124/82 96 07/15/20 05:25 75 24 98 07/15/20 04:01 36.9 C 81 24 112/70 95 07/15/20 03:30 36.9 C 69 26 H 95 07/15/20 03:01 36.9 C 76 26 H 116/67 96 07/15/20 02:30 36.9 C 81 23 97 07/15/20 02:10 83 28 H 96 07/15/20 02:00 37.0 C 77 25 H 105/68 93 05/11/21 01:30 37.0 C 82 27 H 92 07/15/20 01:01 37.0 C 86 24 112/72 96 07/15/20 00:30 37.0 C 80 24 93 07/15/20 00:00 37.0 C 80 24 115/68 96 07/14/20 23:30 37.0 C 80 26 H 96 07/14/20 23:00 37.0 C 85 25 H 119/65 96 07/14/20 22:30 37.0 C 79 25 H 97 07/14/20 22:00 37.0 C 87 26 H 105/67 97 07/14/20 21:50 85 24 93 07/14/20 21:30 37.0 C 84 31 H 95 Laboratory Results Cardiac Enzymes 07/15/20 Range/Units 04:41 AST 15 (15-37) U/L CBC 07/15/20 Range/Units 04:41 WBC 12.65 H (4.8-10.8) K/uL RBC 3.37 L (4.7-6.1) M/uL Hgb 9.9 L (14.0-18.0) g/dL Hct 29.7 L (42-52) % Plt Count 494 H (130-400) K/uL Neut # (Auto) 8.11 H (1.4-6.5) K/uL Lymph # (Auto) 2.37 (1.2-3.4) K/uL [place] # (Auto) 1.43 H (0.11-0.59) K/uL Eos # (Auto) 0.11 (0-0.5) K/uL Baso # (Auto) 0.05 (0-0.2) K/uL Comprehensive Metabolic Panel 07/15/20 Range/Units 04:41 Sodium 139 (136-145) mmol/L Potassium 3.2 L (3.5-5.1) mmol/L Chloride 99 (98-107) mmol/L Carbon Dioxide 36 H (21-32) mmol/L BUN 11 (7-18) mg/dl Creatinine 0.57 L (0.6-1.4) mg/dl Glucose 108 H (70-99) mg/dl Calcium 8.2 L (8.5-10.1) mg/dl AST 15 (15-37) U/L ALT 16 (12-78) U/L Alkaline Phosphatase 114 (45-117) U/L Total Protein 5.9 L (6.4-8.2) gm/dl Albumin 2.2 L (3.4-5.0) gm/dl Intake and Output 07/14/20 07/15/20 07/15/20 22:59 06:59 14:59 Intake Total 111.371 / 1205.954 238.473 / 1205.954 392.437 / 392.437 Output Total 900 / 3740 1320 / 3740 Balance -788.629 / -2534.046 -1081.527 / -2534.046 392.437 / 392.437 Intake: IV 111.371 / 1205.954 238.473 / 1205.954 392.437 / 392.437 Caspofungin 50 mg In Sodium 260 / 260 Chloride 0.9% 250 ml @ 260 mls/ hr IV DAILY YOSSI Rx#:[id number] DOPamine / D5W 400 mg In 250 ml 11.527 / 494.277 238.473 / 494.277 22.167 / 22.167 @ 5 MCG/KG/MIN 26.625 mls/hr IV .Q9H24M YOSSI Rx#:[id number] Norepinephrine/D5w 32 mg In 250 99.844 / 99.844 25.27 / 25.27 ml @ 0.03 MCG/KG/MIN 2.067 mls /hr IV .Q24H YOSSI Rx#:[id number] Potassium Chloride / Wtr 20 meq 85 / 85 In 100 ml @ 50 mls/hr IV Q2H [facility] Rx#:[id number] Output: Urine Amount (Catheter) 900 / 3675 1275 / 3675 Ibanez/Indwelling 900 / 3675 1275 / 3675 Drain Output 45 / 65 Left Abdomen MAYELIN #1 15 Right Abdomen MAYELIN #2 Other: Weight 131.4 kg 131.1 kg Weight Measurement Method Built in [facility] (1) Respiratory failure Chronicity: acute Respiratory failure complication: hypoxia and hypercapnia Qualified Code(s): J96.01 - Acute respiratory failure with hypoxia; J96.02 - Acute respiratory failure with hypercapnia (2) Sepsis Sepsis acute organ dysfunction status: unspecified Sepsis type: sepsis due to unspecified organism Qualified Code(s): A41.9 - Sepsis, unspecified organism
[2020-07-15] MEDS ORDERED: TPN/PPN CONSULT PHARMACY STA (09:49)
[2020-07-15] MEDS ORDERED: DEXTROSE 10% 1,000 ML IV PRN ×2 (09:49→12:44)
[2020-07-15] MEDS ORDERED: TPN/PPN CONSULT PHARMACY PRN (09:55)
--- NOTE | 2020-07-15 10:36 | Critical Care Progress Note ---
Date of Service July 15, 2020 Assessment & Plan (1) Bowel perforation: (2) Septic shock: (3) Anemia: (4) Renal failure, acute: (5) Diastolic CHF, chronic: (6) Obesity hypoventilation syndrome: Impression: 79-year-old male status post exploratory laparotomy in the setting of free intraperitoneal air secondary to dislodgment of gastric tube resulting in peritonitis. He has bacteremia and fungemia and hypoxemic respiratory failure 24 Hour events: Extubated 07/14/2020 Recommendations: NEURO - Awake alert oriented. Continue monitoring CAM ICU CARDIAC/VASCULAR - Severe sepsis with septic shock: The patient remains dependent on dopamine (using dopamine given bradycardia with Norepi). His random cortisol was normal. Midodrine has been stopped given that we cannot give anything by the G-tube Prior echocardiogram showed grade 1 diastolic dysfunction. Follow-up transesophageal echocardiogram is deferred unless his cultures remain persistently positive. RESPIRATORY - S/p VDRF Extubated 07/15/2020 Continue with O2 supplementation to keep oxygen saturation greater than 90% GI/NUTRITION - Peritonitis secondary to dislodgment of G-tube. Surgically corrected. Trophic feed has been stopped. Will start TPN on 07/25 after discussing it with surgery who does not want feeding for at least 1 more week. RENAL/LYTES - Acute renal failure: Monitor BUNs/creatinine Replace electrolytes as needed - Ibanez in place - Strict I&Os. ENDO - Glycemic control per ICU protocol. Continue home Synthroid HEME - Stable hemoglobin and hematocrit status post transfusion. No evidence of ongoing blood loss. Continue to trend at this point time. 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 On meropenem and Caspofungin. Given the possibility of Enterococcus in the peritoneal fluid, will continue Carbapenem for total of 10 days Awaiting speciation of fungus but preliminarily appears to be 2 separate species, 1 albicans and one nonalbicans. Continue with caspofungin for at least 14 days from 07/09/2020 Ophthalmology exam demonstrated no evidence of endophthalmitis. His surveillance cultures are currently no growth to date. due to Fungemia, all lines changed out 07/11. ID consultation reviewed --DNR/DNI --Prophylaxis VTE: Heparin subcu GI: Pepcid Lines: Left subclavian 07/11/2020, right radial 07/11/2020, positive Ibanez, MAYELIN drain Diet: Tube feeds Plan: In/out: -2.6 L, urine output 3740 Discussed the case with Dr. Damon who recommends not to deflate the balloon which is most likely obstructing the pylorus as the patient's mucosa was very friable and deflating the balloon might lead to the G-tube coming out. Given the patient is not being fed for at least 10 days and will not be able to feeding for 7 days more I think TPN is the next type. We will try to take off dopamine first. If the patient gets bradycardic will resume it. We will try to vasopressors. Follow-up cortisol a.m. Hypokalemia being replaced I have personally spent 41 minutes of critical care time in the direct management of this patient. This is a life/limb threatening event. This includes time spent evaluating patient, direct bedside care, chart review, placing orders, interpretation of diagnostic studies, discussion with consultants, patient, and family members, as well as other required patient management activities. This time is exclusive of all separately billable procedures, and teaching time and separate from and in addition to any other critical care service time. Patient is critically ill at this point time with multiorgan system dysfunction. Daughter updated. Prognosis for functional recovery is guarded. Daughter has made decision to not pursue CPR, or defibrillation in the event of clinical deterioration which I think is appropriate. We will continue to support in hop es of recovery. Admission and Anticipated Discharge Date Admission Date: July 07, 2020 Subjective Patient seen and examined at bedside. No acute distress. No adverse events overnight. Patient was extubated yesterday. Denies any chest pain, no headache, no nausea, no vomiting. Denies any abdominal pain any. Seems to be more alert compared to yesterday. On Levophed 0.01, dopamine 5 the time of examination Review of Systems Review of Systems: All systems reviewed & are unremarkable except as noted in Subjective Physical Exam Physical Exam: Constitutional: No acute distress HEENT: EOMI, PERRLA Respiratory system: Decreased air entry on the right side, no wheeze, no rhonchi, mild crackles bilateral lower lobes CVS: S1-S2 positive, no murmurs or gallops, distant heart sounds Abdomen: Soft, nontender, nondistended, decreased bowel sounds, MAYELIN drain in place, positive G-tube Extremities: +2 pulses bilaterally radialis/ dorsalis pedis, no cyanosis, +3 pitting edema bilateral Neuro: Awake alert oriented to self, following commands Psych: Normal mood and affect G/U: Positive Ibanez Skin: no rashes, warm and dry Lymphatic: no cervical or axillary lymphadenopathy Results & Data Results & Data ([facility]) Vital Signs (Past 12 Hours) Vital Signs Temp Pulse Resp BP Pulse Ox 07/15/20 08:30 36.7 C 75 30 H 95 07/15/20 08:02 36.7 C 81 27 H 120/74 95 07/15/20 08:00 36.7 C 79 30 H 95 07/15/20 07:30 36.7 C 78 24 97 07/15/20 07:00 36.8 C 80 26 H 124/82 96 07/15/20 05:25 75 24 98 07/15/20 04:01 36.9 C 81 24 112/70 95 07/15/20 03:30 36.9 C 69 26 H 95 07/15/20 03:01 36.9 C 76 26 H 116/67 96 07/15/20 02:30 36.9 C 81 23 97 07/15/20 02:10 83 28 H 96 07/15/20 02:00 37.0 C 77 25 H 105/68 93 07/15/20 01:30 37.0 C 82 27 H 92 07/15/20 01:01 37.0 C 86 24 112/72 96 07/15/20 00:30 37.0 C 80 24 93 07/15/20 00:00 37.0 C 80 24 115/68 96 07/14/20 23:30 37.0 C 80 26 H 96 07/14/20 23:00 37.0 C 85 25 H 119/65 96 07/14/20 22:30 37.0 C 79 25 H 97 07/15/20 04:41 07/15/20 04:41 Coding Level of Care Code Critical Care 1st 30-74 mins Diagnoses Bowel perforation K63.1 Septic shock A41.9; R65.21 Anemia D64.9 Renal failure, acute N17.9 Diastolic CHF, chronic I50.32 Obesity hypoventilation syndrome E66.2 Time Spent (min) 41
--- NOTE | 2020-07-15 15:03 | Pharmacy Report ---
PHA: Parenteral Nutrition Con - Date of Service July 15, 2020 - Scope Pharmacy was consulted on 07/15 to manage parenteral nutrition orders for this patient. - Subjective The patient is currently on day 1 of Central parenteral nutrition for pyloric obstruction. - Objective Height: 6 ft 6 in Weight: 131.1 kg Diet: NPO Vascular Access:: Central venous catheter Intake & Output (24hrs):: Intake & Output 07/13/20 07/14/20 07/15/20 07/16/20 06:59 06:59 06:59 06:59 Intake Total 5299.978 / 5299.978 2909.908 / 2909.908 1205.954 / 1205.954 910.522 / 910.522 Output Total 6855 / 6855 4700 / 4700 3740 / 3740 1870 / 1870 Balance -1555.022 / -1555.022 -1790.092 / -1790.092 -2534.046 / -2534.046 - 959.478 / -959.478 Weight 132.5 kg 131.4 kg 131.1 kg 131.1 kg Laboratory Data (Last 24 Hr):: 07/15/20 07/15/20 07/15/20 04:41 13:08 13:08 Sodium 139 Potassium 3.2 L Chloride 99 Carbon Dioxide 36 H BUN 11 Creatinine 0.57 L Glucose 108 H Calcium 8.2 L Phosphorus 2.9 Magnesium 2.2 Total Bilirubin 0.5 AST 15 ALT 16 Alkaline Phosphatase 114 114 Albumin 2.2 L Triglycerides 314 H Recent Pertinent Medications:: Lasix 40mg BID ongoing. Potassium replaced today with 80meq. Nutrition Assessment:: Please refer to the Notes section of the EMR for the most recent results technician note. - Assessment Patient recently admitted and discharged at the end of June, ordered TPN again due to pyloric obstruction. Will attempt to volume restrict as much as possible. Given triglycerides were elevated, lipids were not added to the TPN today. There is concern for refeeding so while starting with half goal dextrose and while potassium and phos were added to the TPN bag, additional electrolyte should be monitored this evening. This was discussed with the ICU team. - Plan For day 1 of PN administration, the following will be ordered: Macronutrients Amino acids 120 grams/day Dextrose 125 grams/day Lipids 0 grams/day Micronutrients Sodium chloride 60 mEq Potassium phosphate 30 mMol Potassium chloride 20 mEq Calcium gluconate 4.65 mEq Multivitamins 10 mL Trace Elements 1 mL Total volume 1443.57 mL to be infused over 24 hrs will provide 905 kcal/day Final osmolarity 1326.93 mOsm/L (maximum for PPN is 900 mOsm/L) Labs, as indicated, will be ordered per protocol Pharmacy will continue to follow and adjust parenteral nutrition orders on a daily basis. Thank you for allowing us to participate in the care of this patient.
--- NOTE | 2020-07-15 15:30 | Hospitalist Progress Note ---
Date of Service July 15, 2020 Assessment & Plan (1) Septic shock: Initial procedure 06/26 for recurrent sigmoid volvulus with exp laparotomy, sigmoidectomy and gastrostomy by Dr. Ware Represented 07/07 with unresponsiveness, abdominal pain, severe pain. S/P Exp Laparotomy on 07/07 setting of free intraperitoneal air with replacement of gastric tube and drains requiring close hemodynamic monitoring in setting of severe sepsis and now fungemia Discussed case peripherally with infectious disease specialist. Reviewed micro results. General thought is the franko source is the GI tract. He has quickly cleared the fungemia and repeat blood cultures are negative as of 07/09. Recent dopamine/norepi for persistent shock for at least 1 week post op Persistent post-op ileus present. Starting TPN on 07/15 G-tube to suction, draining green bilious material. Cont 14 days treatment of caspofungin (2) Postoperative ileus: No BM since second surgery, high residual in stomach of tube feeds which have been running at a trickle rate. KUB reveals evidence of ileus. NPO at this time. He is extubated 07/14. TPN started 07/15 (3) Bowel perforation: viscus rupture with merrem on board. Per ID, typically antibiotic course lasts only 7 days post washout, unless patient remains hemodynamically unstable or shock persists. For now, would cont abx. Discussed with Combination Building Inspector. (4) Fungemia: Cont Caspofungin for 14 day course. No need for ANASTASIA at this time without persistent bloodstream infection. All lines were changed out on 07/11 (5) Diastolic CHF, chronic: Cont Lasix BID (6) Bradycardia: Dopamine drip with Levophed-wean as able. (7) COPD (chronic obstructive pulmonary disease): chronic stable (8) Obesity hypoventilation syndrome: (9) Anemia: 2/2 acute blood loss and multiple comorbidities/phlebotomy Patient received 1 unit PRBC on 07/08 in setting of hemoglobin drop to 7.4 Continue to monitor H&H Patient has had significant output cumulatively from MAYELIN drain #1 and #2 H/H remains 01/03 today. (10) Post-operative state: (11) DVT prophylaxis: SQ Heparin Dispo: remains in ICU, will need rehab when recovered. Conditional Code--no shocks or compressions DO [facility] Admission and Anticipated Discharge Date Admission Date: July 07, 2020 Subjective 79-year-old man readmitted for complication of recent open sigmoidectomy for recurrent sigmoid volvulus on 06/26. Currently has a perforated viscus and is status post exploratory laparotomy with repair of gastrostomy, replacement of gastrostomy tube and abdominal washout by Dr. Damon on 07/06. improved mentation today to baseline denies any pain started TPN relatively immobile generally speaking very deconditioned. Review of Systems Review of Systems: All systems reviewed & are unremarkable except as noted in Subjective Physical Exam Physical Exam: CONSTITUTIONAL: obese, vitals as above, NAD EYES: normal conjunctivae ENT: external ear and nose normal, MMM RESPIRATORY: course rhonchi throughout, no rales or wheezing. No increased respiratory distress. CARDIOVASCULAR: regular rate and rhythm, S1 and 2 heard without murmurs, gallops or rubs, no JVD, trace peripheral edema bilaterally GASTROINTESTINAL: soft, surgical wound covered with dressing that is c/d/i. G tube to suction draining a green bilious material. MUSCULOSKELETAL: strength 5/5 throughout, head is normocephalic and atraumatic, neck supple, normal palpation of chest wall without tenderness SKIN: warm and dry NEUROLOGIC: sedated, limited exam Results & Data Results & Data ([facility]) Vital Signs (Past 12 Hours) Vital Signs Temp Pulse Resp BP Pulse Ox 07/15/20 14:00 36.9 C 80 33 H 108/70 94 07/15/20 13:00 36.9 C 78 28 H 96/57 L 95 07/15/20 12:00 36.9 C 78 27 H 97/60 L 95 07/15/20 11:01 36.8 C 76 26 H 111/72 97 07/15/20 11:00 36.8 C 78 19 96 07/15/20 10:29 36.8 C 81 37 H 63/44 L 94 07/15/20 10:00 36.7 C 73 26 H 93/60 L 97 07/15/20 09:00 36.7 C 82 30 H 101/61 95 07/15/20 08:30 36.7 C 75 30 H 95 07/15/20 08:02 36.7 C 81 27 H 120/74 95 07/15/20 08:00 36.7 C 79 30 H 95 07/15/20 07:30 36.7 C 78 24 97 07/15/20 07:00 36.8 C 80 26 H 124/82 96 07/15/20 05:25 75 24 98 07/15/20 04:01 36.9 C 81 24 112/70 95 Laboratory Results Short CBC 07/15/20 Range/Units 04:41 WBC 12.65 H (4.8-10.8) K/uL Hgb 9.9 L (14.0-18.0) g/dL Hct 29.7 L (42-52) % Plt Count 494 H (130-400) K/uL BMP 07/15/20 04:41 Sodium 139 Potassium 3.2 L Chloride 99 Carbon Dioxide 36 H BUN 11 Creatinine 0.57 L Glucose 108 H Calcium 8.2 L Liver Function 07/15/20 07/15/20 Range/Units 04:41 13:08 Total Bilirubin 0.5 (0.2-1) mg/dl AST 15 (15-37) U/L ALT 16 (12-78) U/L Alkaline Phosphatase 114 114 (45-117) U/L Albumin 2.2 L (3.4-5.0) gm/dl Medications Administered Current Inpatient Medications Atropine Sulfate (Atropine Sulfate 0.1 Mg/Ml 5ml Syr) 0.5 mg IV ONE PRN PRN Reason: bradycardia, sustained HR < 40 Stop: 08/09/20 14:01 Heparin Sodium (Beef Lung) (Heparin 10 Unit/Ml 5 Ml Flush) 5 ml FLUSH PRN PRN PRN Reason: Flush Stop: 08/09/20 20:58 Last Admin: 07/10/20 21:15 Dose: 5 ml Documented by: Heparin Sodium (Porcine) (Heparin Sod 5,000 Unit/0.5 Ml Vial) 7,500 units SQ BID YOSSI Stop: 08/07/20 20:59 Last Admin: 07/15/20 08:12 Dose: 7,500 units Documented by: Famotidine 20 mg/ Syringe 5 mls @ 2.5 mls/min IV Q12H YOSSI Stop: 08/06/20 08:59 Last Admin: 07/15/20 08:11 Dose: 2.5 mls/min Documented by: Norepinephrine Bitartrate (Levophed/D5w) 32 mg in 250 mls @ 4.134 mls/hr IV .Q24H YOSSI; Protocol Stop: 08/06/20 10:44 Last Titration: 07/15/20 14:39 Dose: 0.06 mcg/kg/min, 4.1 mls/hr Documented by: Caspofungin 50 mg/ Sodium (Chloride) 260 mls @ 260 mls/hr IV DAILY YOSSI Stop: 07/23/20 23:59 Last Infusion: 07/15/20 09:22 Dose: Infused Documented by: Dopamine HCl/Dextrose (Dopamine / D5w) 400 mg in 250 mls @ 13.313 mls/hr IV .[id number] YOSSI; Protocol Stop: 08/08/20 00:59 Last Titration: 07/15/20 14:40 Dose: 2.5 mcg/kg/min, 13.3 mls/hr Documented by: Furosemide 40 mg/ Syringe 4 mls @ 4 mls/min IV BID17 YOSSI Stop: 08/09/20 12:59 Last Admin: 07/15/20 08:11 Dose: 4 mls/min Documented by: Meropenem 500 mg/ Syringe 10 mls @ 2 mls/min IV Q6H YOSSI; Protocol Stop: 07/19/20 23:59 Last Admin: 07/15/20 10:27 Dose: 2 mls/min Documented by: Dextrose (D10w) 1,000 mls @ 0 mls/hr IV .Q0M PRN PRN Reason: protocol (see label comments) Stop: 08/14/20 09:48 Nutrition (Parenteral) 1 ml/ (TPN BAG) 1,443.57 mls @ 60.15 mls/hr IV .Q24H YOSSI; Protocol Stop: 07/16/20 15:59 Insulin Aspart (Insulin Aspart 100 Units/Ml 3 Ml Pen) 0 units SC Q6 YOSSI; Protocol Stop: 08/06/20 13:14 Last Admin: 07/15/20 11:40 Dose: Not Given Documented by: Midodrine (Midodrine Hcl 10 Mg Tab) 10 mg PO Q8@0600,1300,1800 [facility] Stop: 08/11/20 12:59 Last Admin: 07/14/20 18:18 Dose: Not Given Documented by: Miscellaneous (Icu Electrolyte Replacement Protocol) 1 ea N/A BID@ [facility]; Protocol Stop: 07/20/20 17:59 Last Admin: 07/15/20 06:19 Dose: 1 ea Documented by: Miscellaneous Information (Meropenem Consult Acitve) 1 ea N/A UD PRN PRN Reason: Consult Stop: 08/08/20 10:24 Miscellaneous Information (Tpn/Ppn Consult Pharmacy) 1 ea N/A UD PRN PRN Reason: Consult Stop: 08/14/20 09:54 Sterile Water (Tube Feeding Water Flush) 30 ml GT Q4H YOSSI Stop: 08/09/20 15:59 Last Admin: 07/14/20 15:17 Dose: Not Given Documented by:
[2020-07-15] MEDS ORDERED: CENTRAL PN IV SCH (16:00)
[2020-07-15] MEDS ORDERED: TPN IV SCH (16:00)
[2020-07-15 16:17] LABS: BUN Creatinine Ratio 18.3 (10-20); Calcium 8.7 mg/dl (8.5-10.1); Creatinine Clr Calc Pharmacy 151.5 ml/min; Est GFR (African American) 110.8; Est GFR (Non-African American) 95.6
[2020-07-16] MEDS: INSULIN ASPART 100 UNITS/ML 3 ML PEN SC SCH ×4 (00:19→18:01)
[2020-07-16] MEDS: MEROPENEM 500 MG in SYRINGE 0 ML IV SCH ×4 (03:05→22:07)
[2020-07-16 05:29] LABS: BUN Creatinine Ratio 25.7 (10-20); Calcium 8.2 mg/dl (8.5-10.1); Creatinine Clr Calc Pharmacy 112.2 ml/min; Est GFR (Non-African American) 84.5; Magnesium 2.1 mg/dl (1.8-2.4); Phosphorus 3.1 mg/dl (2.5-4.9); Potassium 3.2 mmol/L (3.5-5.1)
[2020-07-16] MEDS: POTASSIUM CHLORIDE / WTR 10 MEQ/100 ML PLCT IV SCH ×12 (06:39→20:25)
[2020-07-16] MEDS: ICU ELECTROLYTE REPLACEMENT PROTOCOL SCH ×2 (06:40→18:00)
[2020-07-16] MEDS: DOPamine / D5W 400 MG/250 ML BAG IV SCH ×4 (07:44→15:35)
[2020-07-16] MEDS: MAX Conc 128mcg/mL; 32mg in 250mL IV SCH (07:45)
[2020-07-16 08:34] LABS: Basophils # (auto) 0.04 K/uL (0-0.2); Basophils % (auto) 0.3 %; Eosinophils # (auto) 0.01 K/uL (0-0.5); Eosinophils % (auto) 0.1 %; Hemoglobin 9.5 g/dL (14.0-18.0); Immature Granulocytes # (auto) 0.51 K/uL (0.00-0.02); Immature Granulocytes % (auto) 3.3 %; Lymphocytes % (auto) 12.4 %; Mean Corpuscular Hemoglobin 29.1 pg (25-34); Mean Corpuscular Hgb Conc 32.8 g/dL (32-36); Mean Corpuscular Volume 88.7 fL (80-100); Monocytes # (auto) 1.31 K/uL (0.11-0.59); Monocytes % (auto) 8.5 %; Neutrophils # (auto) 11.59 K/uL (1.4-6.5); Neutrophils % (auto) 75.4 %; Platelet Count 461 K/uL (130-400); RDW Coefficient of Variation 16.3 % (11.5-14.5); RDW Standard Deviation 52.5 fL (36.4-46.3); Red Blood Count 3.27 M/uL (4.7-6.1); White Blood Count 15.36 K/uL (4.8-10.8)
--- NOTE | 2020-07-16 09:05 | Surgery Progress Note ---
Date of Service July 16, 2020 Assessment & Plan (1) Perforated viscus: off pressors will need to continue TPN for likely 2 weeks until I can safely deflate g-tube balloon will remove parisa and zen drains no new/acute surgical issues. Admission and Anticipated Discharge Date Admission Date: July 07, 2020 Subjective extubated. sleeping. responds to questions. Physical Exam Physical Exam: abd: soft. wound looks good. MAYELIN's scant/serous G-tube draining bilious fluid. Results & Data ([facility]) Vital Signs (Past 12 Hours) Vital Signs Temp Pulse Resp BP Pulse Ox 07/16/20 07:59 83 07/16/20 07:52 83 07/16/20 04:00 83 90/80 L 07/16/20 03:16 83 28 H 98 07/16/20 00:00 88 121/57 L 07/15/20 23:59 88 07/15/20 22:45 37.4 C 88 31 H 99 07/15/20 22:30 37.4 C 90 30 H 99 07/15/20 22:15 37.3 C 95 H 28 H 98 07/15/20 22:00 37.3 C 97 H 21 99/70 L 99 07/15/20 21:45 37.3 C 96 H 28 H 96 07/15/20 21:30 37.3 C 94 H 23 97 07/15/20 21:15 37.3 C 93 H 28 H 97 PG Care Time/CCT Total # of Minutes Spent Total Time Spent with Patient: Total time spent is greater than 50% in coordination of care (as documented) at patient's floor/unit and/or counseling patient: Coding Level of Care Code None Diagnoses Perforated viscus R19.8
[2020-07-16] MEDS: HEPARIN SOD 5,000 UNIT/0.5 ML VIAL SQ SCH ×2 (09:50→20:30)
[2020-07-16] MEDS: FAMOTIDINE 20 MG in SYRINGE 3 ML IV SCH ×2 (09:50→20:30)
[2020-07-16] MEDS: FUROSEMIDE 40 MG in SYRINGE 0 ML IV SCH ×2 (09:50→16:49)
[2020-07-16] MEDS: CASPOFUNGIN 50 MG in SODIUM CHLORIDE 0.9% 250 ML IV SCH (10:13)
[2020-07-16] MEDS ORDERED: PEPTAMEN INTENSE VHP 1.0 CAL 1,000 ML BAG GT SCH (10:45)
--- NOTE | 2020-07-16 11:25 | Pharmacy Report ---
PHA: Parenteral Nutrition Con - Date of Service July 16, 2020 - Scope Pharmacy was consulted on 07/15 to manage parenteral nutrition orders for this patient. - Subjective The patient is currently on day 2 of central parenteral nutrition. - Objective Height: 6 ft 6 in Weight: 130 kg Diet: NPO Intake & Output (24hrs):: Intake & Output 07/14/20 07/15/20 07/16/20 07/17/20 06:59 06:59 06:59 06:59 Intake Total 2909.908 / 2909.908 1205.954 / 1205.954 960.663 / 960.663 398.333 / 398.333 Output Total 4700 / 4700 3740 / 3740 3079 / 3079 Balance -1790.092 / -1790.092 -2534.046 / -2534.046 -2118.337 / -2118.337 398.333 / 398.333 Weight 131.4 kg 131.1 kg 130 kg 130 kg Laboratory Data (Last 24 Hr):: 07/15/20 07/15/20 07/15/20 13:08 13:08 15:41 Sodium 138 Potassium 4.0 D Chloride 99 Carbon Dioxide 33 H BUN 11 Creatinine 0.60 Glucose 114 H Calcium 8.7 Phosphorus Magnesium Alkaline Phosphatase 114 Triglycerides 314 H 07/16/20 04:49 Sodium 142 Potassium 3.2 L D Chloride 102 Carbon Dioxide 34 H BUN 21 H D Creatinine 0.81 Glucose 141 H Calcium 8.2 L Phosphorus 3.1 Magnesium 2.1 Alkaline Phosphatase Triglycerides Recent Pertinent Medications:: Remains on IV lasix and was again repleted with 80meq of IV potassium today. Nutrition Assessment:: Please refer to the Notes section of the EMR for the most recent plaster molder note. - Assessment Trickle feeds to start today, goal macros adjusted to account for this (new goal: 200g dex, 125g AA, 50g lipids). Given phos and potassium (although low, possibly due to diuretics?) level remained stable, will advance dextrose content today. Currently ~64 meq potassium in the TPN bag. Given the full effects of this amount will not be evident until tomorrow, and as the patient received 80meq of potassium replacement today, will hold of on increasing at this time. - Plan For day 2 of PN administration, the following will be ordered: Macronutrients Amino acids 125 grams/day Dextrose 175 grams/day Lipids 0 grams/day Micronutrients Sodium chloride 60 mEq Potassium phosphate 30 mMol Potassium chloride 20 mEq Calcium gluconate 4.65 mEq Multivitamins 10 mL Trace Elements 1 mL Additional additives: thiamine 100mg Total volume 1566 mL to be infused over 24 hrs will provide 1095 kcal/day Final osmolarity 1412 mOsm/L (maximum for PPN is 900 mOsm/L) Labs, as indicated, will be ordered per protocol Pharmacy will continue to follow and adjust parenteral nutrition orders on a daily basis. Thank you for allowing us to participate in the care of this patient.
--- NOTE | 2020-07-16 13:28 | Cardiology Progress Note ---
Date of Service July 16, 2020 Assessment & Plan (1) Bradycardia: -Sinus bradycardia in the 70s with right bundle branch block noted, unchanged compared to preoperatively. Agree with ongoing diuretic therapy as patient has received a significant amount of IV fluids. Admission and Anticipated Discharge Date Admission Date: July 07, 2020 Subjective Patient seen in cardiology follow-up. He was more alert today. Talked with me. He is no longer on norepinephrine or dopamine. He was on oxy mask and oxygen saturations are stable. TPN was infusing. Systolic blood pressure ranging from 80s up to 130, but mostly in the 80s. Heart rate in the 70s, right bundle branch block morphology noted on telemetry. Physical Exam Physical Exam: Temp Pulse Resp BP Pulse Ox 37.4 C 83 28 H 90/80 L 98 07/15/20 22:45 07/16/20 07:59 07/16/20 03:16 07/16/20 04:00 07/16/20 03:16 Constitutional: Ill in appearance, but no acute distress Respiratory: Mildly decreased breath sounds at the bases Cardiovascular: RRR, no murmur, no edema Neurologic: Alert, conversant Results & Data ([facility]) Vital Signs (Past 12 Hours) Vital Signs Pulse Resp BP Pulse Ox 07/16/20 07:59 83 07/16/20 07:52 83 07/16/20 04:00 83 90/80 L 07/16/20 03:16 83 28 H 98 Laboratory Results Lipids 07/15/20 Range/Units 13:08 Triglycerides 314 H (0-150) mg/dl CBC 07/16/20 Range/Units 04:52 WBC 15.36 H (4.8-10.8) K/uL RBC 3.27 L (4.7-6.1) M/uL Hgb 9.5 L (14.0-18.0) g/dL Hct 29.0 L (42-52) % Plt Count 461 H (130-400) K/uL Neut # (Auto) 11.59 H (1.4-6.5) K/uL Lymph # (Auto) 1.90 (1.2-3.4) K/uL [place] # (Auto) 1.31 H (0.11-0.59) K/uL Eos # (Auto) 0.01 (0-0.5) K/uL Baso # (Auto) 0.04 (0-0.2) K/uL Comprehensive Metabolic Panel 07/15/20 07/15/20 07/16/20 Range/Units 13:08 15:41 04:49 Sodium 138 142 (136-145) mmol/L Potassium 4.0 D 3.2 L D (3.5-5.1) mmol/L Chloride 99 102 (98-107) mmol/L Carbon Dioxide 33 H 34 H (21-32) mmol/L BUN 11 21 H D (7-18) mg/dl Creatinine 0.60 0.81 (0.6-1.4) mg/dl Glucose 114 H 141 H (70-99) mg/dl Calcium 8.7 8.2 L (8.5-10.1) mg/dl Alkaline Phosphatase 114 (45-117) U/L Intake and Output 07/15/20 07/16/20 07/16/20 22:59 06:59 14:59 Intake Total 41.216 / 960.663 8.925 / 960.663 853.333 / 853.333 Output Total 1209 / 3079 Balance 41.216 / -2118.337 -1200.075 / -2118.337 852.333 / 852.333 Intake: IV 41.216 / 960.663 8.925 / 960.663 853.333 / 853.333 Caspofungin 50 mg In Sodium 260 / 260 Chloride 0.9% 250 ml @ 260 mls/ hr IV DAILY YOSSI Rx#:[id number] DOPamine / D5W 400 mg In 250 ml 25.673 / 250.000 0 / 0 @ 2.5 MCG/KG/MIN 13.313 mls/hr IV .[id number] YOSSI Rx#:[id number] Norepinephrine/D5w 32 mg In 250 15.543 / 65.663 8.925 / 65.663 ml @ 0 MCG/KG/MIN IV .Q0M YOSSI Rx#:[id number] Potassium Chloride / Wtr 10 meq 593.333 / 593.333 In 100 ml @ 100 mls/hr IV Q1H YOSSI Rx#:[id number] Output: Urine Amount (Catheter) 775 / 2475 Ibanez/Indwelling 775 / 2475 Gastric Drainage 400 / 550 Gastrostomy 400 / 550 Drain Output Left Abdomen MAYELIN #1 Right Abdomen MAYELIN #2 # Bowel Movements Other: Weight 130 kg 130 kg Weight Measurement Method Built in [facility] Patient Weight 07/17/20 06:59 Weight 130 kg
--- NOTE | 2020-07-16 14:20 | Critical Care Progress Note ---
Date of Service July 16, 2020 Assessment & Plan (1) Bowel perforation: (2) Septic shock: (3) Anemia: (4) Renal failure, acute: (5) Diastolic CHF, chronic: (6) Obesity hypoventilation syndrome: Impression: 79-year-old male status post exploratory laparotomy in the setting of free intraperitoneal air secondary to dislodgment of gastric tube resulting in peritonitis. He has bacteremia and fungemia and hypoxemic respiratory failure 24 Hour events: Extubated 07/14/2020 Recommendations: NEURO - Awake alert oriented. Continue monitoring CAM ICU CARDIAC/VASCULAR - Severe sepsis The patient remains dependent on dopamine (using dopamine given bradycardia with Norepi). His random cortisol was normal. Midodrine has been stopped given that we cannot give anything by the G-tube Prior echocardiogram showed grade 1 diastolic dysfunction. Off vasopressor support since 07/15/2020 evening Patient's random cortisol was 18 on 07/15/2020 which is lower than expected. If the patient still has persistent hypotension will think about giving hydrocortisone RESPIRATORY - S/p VDRF Extubated 07/15/2020 Continue with O2 supplementation to keep oxygen saturation greater than 90% GI/NUTRITION - Peritonitis secondary to dislodgment of G-tube. Surgically corrected. Trophic feed has been stopped. C/w TPN, started 07/25 after discussing it with surgery who does not want feeding for at least 2 weeks. Surgery recommends not to deflate the balloon og G tube which is most likely obstructing the pylorus as the patient's mucosa was very friable and deflating the balloon might lead to the G-tube coming out. RENAL/LYTES - Acute renal failure: Monitor BUNs/creatinine Replace electrolytes as needed - Ibanez in place - Strict I&Os. ENDO - Glycemic control per ICU protocol. Continue home Synthroid HEME - Stable hemoglobin and hematocrit status post transfusion. No evidence of ongoing blood loss. Continue to trend at this point time. 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 On meropenem and Caspofungin. Given the possibility of Enterococcus in the peritoneal fluid, will continue Carbapenem for total of 10 days Awaiting speciation of fungus but preliminarily appears to be 2 separate species, 1 albicans and one nonalbicans. Continue with caspofungin for at least 14 days from 07/09/2020 Ophthalmology exam demonstrated no evidence of endophthalmitis. His surveillance cultures are currently no growth to date. due to Fungemia, all lines changed out 07/11. ID consultation reviewed --DNR/DNI --Prophylaxis VTE: Heparin subcu GI: Pepcid Lines: Left subclavian 07/11/2020, right radial 07/11/2020, positive Ibanez, MAYELIN drain Diet: Tube feeds Plan: In/out: -2066, urine output 3079 Hypokalemia being replaced Patient is off vasopressors since 7:30 PM yesterday. Continue monitoring him off vasopressors. Patient did have multiple bowel movements but surgery does not want the tube feeds to be started because of the balloon possibly obstructing the pylorus. Continue with TPN. I have personally spent 35 minutes of critical care time in the direct management of this patient. This is a life/limb threatening event. This includes time spent evaluating patient, direct bedside care, chart review, placing orders, interpretation of diagnostic studies, discussion with consultants, patient, and family members, as well as other required patient management activities. This time is exclusive of all separately billable procedures, and teaching time and separate from and in addition to any other critical care service time. Patient is critically ill at this point time with multiorgan system dysfunction. Daughter updated. Prognosis for functional recovery is guarded. Daughter has made decision to not pursue CPR, or defibrillation in the event of clinical deterioration which I think is appropriate. We will continue to support in hopes of recovery. Admission and Anticipated Discharge Date Admission Date: July 07, 2020 Subjective Patient seen and examined at bedside. No acute distress, no adverse events overnight. Patient is finally off of vasopressor support. He was on CPAP at the time of examination Answering simple questions. Denied any chest pain, no headache, no nausea, no vomiting. Has been afebrile. Making good amount of urine. Review of Systems Review of Systems: All systems reviewed & are unremarkable except as noted in Subjective Physical Exam Physical Exam: Constitutional: No acute distress HEENT: EOMI, PERRLA Respiratory system: Decreased air entry on the right side, no wheeze, no rhonchi, mild crackles bilateral lower lobes CVS: S1-S2 positive, no murmurs or gallops, distant heart sounds Abdomen: Soft, nontender, nondistended, decreased bowel sounds, MAYELIN drain in place, positive G-tube Extremities: +2 pulses bilaterally radialis/ dorsalis pedis, no cyanosis, +3 pitting edema bilateral Neuro: Awake alert oriented to self, following commands Psych: Normal mood and affect G/U: Positive Ibanez Skin: no rashes, warm and dry Lymphatic: no cervical or axillary lymphadenopathy Results & Data Results & Data ([facility]) Vital Signs (Past 12 Hours) Vital Signs Temp Pulse Resp BP Pulse Ox 07/16/20 13:30 70 28 H 99 07/16/20 13:15 66 28 H 99 07/16/20 13:00 71 23 107/69 99 07/16/20 12:45 74 29 H 99 07/16/20 12:34 79 33 H 119/67 99 07/16/20 12:30 77 26 H 99 07/16/20 12:15 74 32 H 99 07/16/20 12:00 36.8 C 73 31 H 119/70 99 07/16/20 11:45 70 32 H 99 07/16/20 11:30 65 33 H 99 07/16/20 11:15 75 34 H 99 07/16/20 11:00 66 27 H 117/66 99 07/16/20 10:45 76 31 H 99 07/16/20 10:30 70 29 H 99 07/16/20 10:15 76 32 H 99 07/16/20 10:01 76 31 H 111/89 99 07/16/20 10:00 71 36 H 98 07/16/20 09:45 75 28 H 98 07/16/20 09:30 79 21 99 07/16/20 09:15 77 31 H 99 07/16/20 09:01 89 24 132/89 98 07/16/20 09:00 78 20 98 07/16/20 08:45 36.6 C 74 25 H 100 07/16/20 08:30 36.6 C 75 27 H 100 07/16/20 08:15 36.7 C 76 27 H 100 07/16/20 08:00 36.7 C 78 27 H 102/66 100 07/16/20 07:59 83 07/16/20 07:52 83 07/16/20 07:45 36.6 C 83 29 H 99 07/16/20 07:38 36.6 C 80 26 H 107/70 99 07/16/20 07:30 36.6 C 80 17 99 07/16/20 07:15 36.7 C 82 17 99 07/16/20 07:06 36.7 C 80 28 H 105/68 99 07/16/20 07:00 36.7 C 82 20 101/64 100 07/16/20 06:45 36.7 C 83 30 H 99 07/16/20 06:30 36.8 C 77 31 H 99 07/16/20 06:17 36.9 C 83 22 119/74 98 07/16/20 06:15 36.9 C 90 28 H 98 07/16/20 06:00 37.1 C 85 31 H 97 07/16/20 05:45 37.0 C 81 27 H 97 07/16/20 05:30 37.0 C 78 26 H 98 07/16/20 05:15 37.0 C 82 29 H 98 07/16/20 05:00 37.0 C 82 18 98/55 L 97 07/16/20 04:45 37.1 C 85 23 98 07/16/20 04:30 37.1 C 85 29 H 98 07/16/20 04:15 37.1 C 85 20 98 07/16/20 04:00 37.1 C 84 24 107/74 98 07/16/20 03:45 37.1 C 86 26 H 97 07/16/20 03:30 37.1 C 85 31 H 97 07/16/20 03:16 83 28 H 98 07/16/20 03:15 37.1 C 82 27 H 98 07/16/20 03:00 37.1 C 83 25 H 97/61 L 99 07/16/20 02:45 37.2 C 81 25 H 99 07/16/20 04:52 Coding Level of Care Code Critical Care 1st 30-74 mins Diagnoses Bowel perforation K63.1 Septic shock A41.9; R65.21 Anemia D64.9 Renal failure, acute N17.9 Diastolic CHF, chronic I50.32 Obesity hypoventilation syndrome E66.2 Time Spent (min) 35
[2020-07-16 14:23] LABS: BUN Creatinine Ratio 31.6 (10-20); Calcium 8.5 mg/dl (8.5-10.1); Creatinine Clr Calc Pharmacy 111.7 ml/min; Est GFR (Non-African American) 84.5 ml/min; Potassium 3.6 mmol/L (3.5-5.1)
[2020-07-16 14:31] LABS: Magnesium 2.2 mg/dl (1.8-2.4); Phosphorus 3.3 mg/dl (2.5-4.9)
[2020-07-16] MEDS ORDERED: CENTRAL PN IV SCH (16:00)
[2020-07-16] MEDS ORDERED: TPN IV SCH (16:00)
--- NOTE | 2020-07-16 23:02 | Hospitalist Progress Note ---
Date of Service July 16, 2020 Assessment & Plan (1) Septic shock: Admitted with severe sepsis with septic shock secondary to perforated viscus/peritonitis/fungemia, dislodged G-tube S/P Exp Laparotomy on 07/07 setting of free intraperitoneal air with replacement of gastric tube and drains Patient was intubated and briefly, required pressor supports, Extubated on 07/14/2020 respiratory status stable on nasal cannula O2 supplement, off pressors Initial procedure 06/26 for recurrent sigmoid volvulus with exp laparotomy, sigmoidectomy and gastrostomy by Dr. Ware Readmission on 07/07 with unresponsiveness, abdominal pain, severe pain. X-ray showed large amount of free air under diaphragm Per surgery procedure note, gastric stromal noted to be severely inflamed, friable, new G-tube with large balloon placed-to prevent dislodgment New replacement of G-tube almost obstructing the pylorus-patient should be n.p.o. for 2 weeks Started TPN on 07/15 G-tube to suction, draining green bilious material. [facility] appreciate input Cont 14 days treatment of caspofungin (2) Postoperative ileus: Had multiple bowel movements, Patient will need to be strict n.p.o. for at least 2 weeks to allow healing of gastric stroma as explained above jenn. He is extubated 07/14. TPN started 07/15 (3) Bowel perforation: Due to dislodged G-tube, status post exploratory laparotomy, washout, replacement of G-tube Continue broad-spectrum antibiotic continue 7-10 days of treatment 2 weeks of antifungal treatment for fungemia (4) Fungemia: Cont Caspofungin for 14 day course. No need for ANASTASIA at this time without persistent bloodstream infection. All lines were changed out on 07/11 (5) Diastolic CHF, chronic: Cont Lasix BID (6) Bradycardia: Heart rate improved Appreciate input from cardiology Patient is off pressors (7) COPD (chronic obstructive pulmonary disease): chronic stable (8) Obesity hypoventilation syndrome: (9) Anemia: 2/2 acute blood loss and multiple comorbidities/phlebotomy Patient received 1 unit PRBC on 07/08 in setting of hemoglobin drop to 7.4 Continue to monitor H&H (10) Post-operative state: (11) DVT prophylaxis: SQ Heparin Dispo: Remains in ICU DNR/DNI Admission and Anticipated Discharge Date Admission Date: July 07, 2020 Subjective Follow up visit for severe sepsis /acute abdomen with perforated viscus /free air under diaphragm /perforation in stomach due to dislodge G tube pt is s/p extubation on supplemental 02 via nasal canula able to answer questions had multiple bowel movements though out the day minimum abdominal pain , no nausea or vomiting tolerating TPN well , no fever of chills Review of Systems Review of Systems: Unobtainable due to cognitive status Physical Exam Physical Exam: Physical exam: General: Obese, chronically ill-appearing, HEENT: PERRLA, EOMI, Heart: Regular Lungs: Clear to auscultate, no wheeze or rales Abdomen: Mid abdominal surgical bandage, drain present, G-tube is attached to suction, drain is bilious fluid Extremity: Generalized weakness, +2 bilateral pitting edema Neuro: No focal neurological deficit normal speech, Psych: Alert awake oriented x3, normal affect Results & Data Results & Data ([facility]) Vital Signs (Past 12 Hours) Vital Signs Temp Pulse Resp BP Pulse Ox 07/16/20 19:15 72 30 H 96 07/16/20 19:01 71 29 H 118/67 97 07/16/20 19:00 64 29 H 97 07/16/20 18:45 68 24 96 07/16/20 18:30 77 22 96 07/16/20 18:15 71 22 97 07/16/20 18:00 72 29 H 123/73 99 07/16/20 17:45 73 30 H 99 07/16/20 17:30 72 16 97 07/16/20 17:15 69 29 H 99 07/16/20 17:00 75 21 132/75 99 07/16/20 16:45 73 29 H 99 07/16/20 16:30 64 29 H 99 07/16/20 16:15 67 26 H 100 07/16/20 16:00 37 C 74 27 H 125/70 100 07/16/20 15:45 64 22 99 07/16/20 15:30 64 26 H 99 07/16/20 15:15 63 18 100 07/16/20 15:00 72 28 H 119/70 100 07/16/20 14:45 72 28 H 99 07/16/20 14:30 74 27 H 100 07/16/20 14:22 73 28 H 115/77 100 07/16/20 14:15 72 27 H 99 07/16/20 14:01 66 24 91/70 L 100 07/16/20 14:00 76 27 H 100 07/16/20 13:45 70 26 H 99 07/16/20 13:30 70 28 H 99 07/16/20 13:15 66 28 H 99 07/16/20 13:00 71 23 107/69 99 07/16/20 12:45 74 29 H 99 07/16/20 12:34 79 33 H 119/67 99 07/16/20 12:30 77 26 H 99 07/16/20 12:15 74 32 H 99 07/16/20 12:00 36.8 C 73 31 H 119/70 99 07/16/20 11:45 70 32 H 99 07/16/20 11:30 65 33 H 99 07/16/20 11:15 75 34 H 99
[2020-07-17] MEDS: INSULIN ASPART 100 UNITS/ML 3 ML PEN SC SCH ×4 (00:10→18:20)
[2020-07-17] MEDS: MEROPENEM 500 MG in SYRINGE 0 ML IV SCH ×4 (03:41→21:59)
[2020-07-17 05:25] LABS: Basophils # (auto) 0.04 K/uL (0-0.2); Basophils % (auto) 0.3 %; Eosinophils # (auto) 0.05 K/uL (0-0.5); Eosinophils % (auto) 0.3 %; Hematocrit (blood only) 28.6 % (42-52); Hemoglobin 9.4 g/dL (14.0-18.0); Immature Granulocytes # (auto) 0.71 K/uL (0.00-0.02); Immature Granulocytes % (auto) 4.6 %; Lymphocytes # (auto) 1.98 K/uL (1.2-3.4); Lymphocytes % (auto) 12.8 %; Mean Corpuscular Hemoglobin 29.2 pg (25-34); Mean Corpuscular Hgb Conc 32.9 g/dL (32-36); Mean Corpuscular Volume 88.8 fL (80-100); Monocytes # (auto) 1.09 K/uL (0.11-0.59); Neutrophils # (auto) 11.63 K/uL (1.4-6.5); Platelet Count 392 K/uL (130-400); Red Blood Count 3.22 M/uL (4.7-6.1)
[2020-07-17 05:42] LABS: BUN Creatinine Ratio 43.3 (10-20); Calcium 8.1 mg/dl (8.5-10.1); Creatinine Clr Calc Pharmacy 107.8 ml/min; Est GFR (African American) 96.5 ml/min; Est GFR (Non-African American) 83.3 ml/min; Magnesium 2.1 mg/dl (1.8-2.4); Potassium 3.4 mmol/L (3.5-5.1)
[2020-07-17 05:43] LABS: Phosphorus 3.4 mg/dl (2.5-4.9)
[2020-07-17] MEDS: ICU ELECTROLYTE REPLACEMENT PROTOCOL SCH (05:48)
[2020-07-17] MEDS: POTASSIUM CHLORIDE / WTR 10 MEQ/100 ML PLCT IV SCH ×8 (06:03→13:00)
[2020-07-17] MEDS: DOPamine / D5W 400 MG/250 ML BAG IV SCH (06:17)
[2020-07-17] MEDS: HEPARIN SOD 5,000 UNIT/0.5 ML VIAL SQ SCH ×2 (08:13→20:07)
[2020-07-17] MEDS: FAMOTIDINE 20 MG in SYRINGE 3 ML IV SCH ×2 (08:15→20:06)
[2020-07-17] MEDS: CASPOFUNGIN 50 MG in SODIUM CHLORIDE 0.9% 250 ML IV SCH (08:15)
[2020-07-17] MEDS: FUROSEMIDE 40 MG in SYRINGE 0 ML IV SCH ×2 (08:15→16:42)
--- NOTE | 2020-07-17 12:06 | Cardiology Progress Note ---
Date of Service July 17, 2020 Assessment & Plan (1) Bradycardia: -Sinus bradycardia is resolved. Patient no longer on dopamine or Levophed support. Telemetry reveals right bundle branch block morphology, which was present on past EKG tracings dating back to preoperative cardiac assessment in June,. Agree with furosemide treatment. Cardiology to sign off. Please call with any questions or concerns. Admission and Anticipated Discharge Date Admission Date: July 07, 2020 Subjective Patient awake, conversant today. Telemetry reveals sinus rhythm in the range of 78 bpm. Blood pressure is improved, off of pressors. Physical Exam Physical Exam: Temp Pulse Resp BP Pulse Ox 36.4 C L 62 23 108/68 95 07/17/20 06:00 07/17/20 12:00 07/17/20 12:00 07/17/20 11:00 07/17/20 12:00 Respiratory: Mildly decreased breath sounds the bases Cardiovascular: Rate/Rhythm: regular rhythm Heart Sounds: no murmur Extremities: + edema (Mild pedal, lower extremity edema bilaterally) Results & Data ([facility]) Vital Signs (Past 12 Hours) Vital Signs Temp Pulse Resp BP Pulse Ox 07/17/20 12:00 62 23 95 07/17/20 11:00 68 30 H 108/68 96 07/17/20 10:01 70 30 H 122/73 94 07/17/20 10:00 69 28 H 122/73 94 07/17/20 09:00 61 28 H 128/71 94 07/17/20 08:00 76 32 H 140/71 97 07/17/20 07:47 78 20 98 07/17/20 07:00 65 25 H 113/66 97 07/17/20 06:00 36.4 C L 72 26 H 106/62 95 07/17/20 05:00 66 28 H 115/71 95 07/17/20 04:00 36.4 C L 64 26 H 115/66 96 07/17/20 03:36 62 28 H 96 07/17/20 03:00 69 26 H 112/71 97 07/17/20 02:00 71 26 H 111/68 97 07/17/20 01:00 72 28 H 117/73 96 Laboratory Results CBC 07/17/20 Range/Units 04:46 WBC 15.50 H (4.8-10.8) K/uL RBC 3.22 L (4.7-6.1) M/uL Hgb 9.4 L (14.0-18.0) g/dL Hct 28.6 L (42-52) % Plt Count 392 (130-400) K/uL Neut # (Auto) 11.63 H (1.4-6.5) K/uL Lymph # (Auto) 1.98 (1.2-3.4) K/uL [place] # (Auto) 1.09 H (0.11-0.59) K/uL Eos # (Auto) 0.05 (0-0.5) K/uL Baso # (Auto) 0.04 (0-0.2) K/uL Comprehensive Metabolic Panel 07/16/20 07/17/20 Range/Units 13:50 04:46 Sodium 140 142 (136-145) mmol/L Potassium 3.6 3.4 L (3.5-5.1) mmol/L Chloride 102 104 (98-107) mmol/L Carbon Dioxide 32 33 H (21-32) mmol/L BUN 26 H 36 H (7-18) mg/dl Creatinine 0.81 0.84 (0.6-1.4) mg/dl Glucose 140 H 129 H (70-99) mg/dl Calcium 8.5 8.1 L (8.5-10.1) mg/dl Intake and Output 07/16/20 07/17/20 07/17/20 22:59 06:59 14:59 Intake Total 1943.57 / 2896.903 816.667 / 816.667 Output Total 626 / 1477 350 / 1477 250 / 250 Balance 1317.57 / 1419.903 -350 / 1419.903 566.667 / 566.667 Intake: IV 1943.57 / 2896.903 816.667 / 816.667 Caspofungin 50 mg In Sodium 260 / 260 Chloride 0.9% 250 ml @ 260 mls/ hr IV DAILY [facility] Rx#:[id number] Custom Central Pn 1 ml In TPN 1443.57 / 1443.57 Bag 1,442.57 ml @ 60.15 mls/hr IV .Q24H [facility] Rx#:[id number] Norepinephrine/D5w 32 mg In 250 0 / 0 ml @ 0 MCG/KG/MIN IV .Q0M [facility] Rx#:[id number] Potassium Chloride / Wtr 10 meq 500 / 1193.333 556.667 / 556.667 In 100 ml @ 100 mls/hr IV Q1H [facility] Rx#:[id number] Output: Urine Amount (Catheter) 600 / 1250 200 / 1250 250 / 250 Ibanez/Indwelling 600 / 1250 200 / 1250 250 / 250 Gastric Drainage 25 / 225 150 / 225 Gastrostomy 25 / 225 150 / 225 # Bowel Movements 1 / 2 Other: Weight 128.8 kg 128.8 kg Weight Measurement Method Built in [facility] Patient Weight 07/18/20 06:59 Weight 128.8 kg
--- NOTE | 2020-07-17 12:44 | Critical Care Progress Note ---
Date of Service July 17, 2020 Assessment & Plan (1) Bowel perforation: (2) Septic shock: (3) Anemia: (4) Renal failure, acute: (5) Diastolic CHF, chronic: (6) Obesity hypoventilation syndrome: Impression: 79-year-old male status post exploratory laparotomy in the setting of free intraperitoneal air secondary to dislodgment of gastric tube resulting in peritonitis. He has bacteremia and fungemia and hypoxemic respiratory failure 24 Hour events: Extubated 07/14/2020. Hemodynamically stable Recommendations: NEURO - Awake alert oriented. Continue monitoring CAM ICU CARDIAC/VASCULAR - Severe sepsis The patient remains dependent on dopamine (using dopamine given bradycardia with Norepi). His random cortisol was normal. Prior echocardiogram showed grade 1 diastolic dysfunction. Off vasopressor support since 07/15/2020 evening Patient's random cortisol was 18 on 07/15/2020 which is lower than expected. If the patient still has persistent hypotension will think about giving hydrocortisone RESPIRATORY - S/p VDRF Extubated 07/15/2020 Continue with O2 supplementation to keep oxygen saturation greater than 90% GI/NUTRITION - Peritonitis secondary to dislodgment of G-tube. Surgically corrected. Trophic feed has been stopped. C/w TPN, started 07/25 after discussing it with surgery who does not want feeding for at least 2 weeks. Surgery recommends not to deflate the balloon og G tube which is most likely obstructing the pylorus as the patient's mucosa was very friable and deflating the balloon might lead to the G-tube coming out. RENAL/LYTES - Acute renal failure: Monitor BUNs/creatinine Replace electrolytes as needed - Ibanez in place - Strict I&Os. ENDO - Glycemic control per ICU protocol. Continue home Synthroid HEME - Stable hemoglobin and hematocrit status post transfusion. No evidence of o ngoing blood loss. Continue to trend at this point time. 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 On meropenem and Caspofungin. Given the possibility of Enterococcus in the peritoneal fluid, will continue Carbapenem for total of 10 days Awaiting speciation of fungus but preliminarily appears to be 2 separate species, 1 albicans and one nonalbicans. Continue with caspofungin for at least 14 days from 07/09/2020 Ophthalmology exam demonstrated no evidence of endophthalmitis. His surveillance cultures are currently no growth to date. due to Fungemia, all lines changed out 07/11. ID consultation reviewed --DNR/DNI --Prophylaxis VTE: Heparin subcu GI: Pepcid Lines: Left subclavian 07/11/2020, right radial 07/11/2020, positive Ibanez Diet: Tube feeds Plan: In/out: +1522, urine output 1476 Potassium is being replaced. Patient's urine output has decreased a little. His creatinine still within normal limit. We will consider adding metolazone to the evening dose if the urine output did not vegetable picker. Continue with TPN. Surgery following. DC A-line Consideration to LTAC should be sought given the patient will be on TPN for at least 7-10 days. We will consider discontinuing Ibanez catheter prior to downgrade Patient is hemodynamically stable to be sent out of the ICU. Please note the above document was generated using voice recognition software. It may contain grammatical, syntax or spelling errors.Any formal questions or concerns about the content, text or information contained within the body of this dictation should be directly addressed to the provider for clarification. Admission and Anticipated Discharge Date Admission Date: July 07, 2020 Subjective Patient seen and examined at bedside. No acute distress, no adverse events overnight. Patient has been off vasopressors for more than 48 hours now. He is more alert. Talking. He does have bouts of little bit of confusion. Denies any chest pain, no headache, no nausea, no vomiting. He is asking for food, chocolate milk. Patient having multiple bowel movements. MAYELIN drain very mood by surgery. Review of Systems Review of Systems: All systems reviewed & are unremarkable except as noted in Subjective Physical Exam Physical Exam: Constitutional: No acute distress HEENT: EOMI, PERRLA Respiratory system: Decreased air entry on the right side, no wheeze, no rhonchi, mild crackles bilateral lower lobes CVS: S1-S2 positive, no murmurs or gallops, distant heart sounds Abdomen: Soft, nontender, nondistended, decreased bowel sounds, positive G-tube Extremities: +2 pulses bilaterally radialis/ dorsalis pedis, no cyanosis, +3 pitting edema bilateral Neuro: Awake alert oriented to self time and place, following commands Psych: Normal mood and affect G/U: Positive Ibanez Skin: no rashes, warm and dry Lymphatic: no cervical or axillary lymphadenopathy Results & Data Results & Data ([facility]) Vital Signs (Past 12 Hours) Vital Signs Temp Pulse Resp BP Pulse Ox 07/17/20 12:07 36.9 C 07/17/20 12:00 62 23 95 07/17/20 11:00 68 30 H 108/68 96 07/17/20 10:01 70 30 H 122/73 94 07/17/20 10:00 69 28 H 122/73 94 07/17/20 09:00 61 28 H 128/71 94 07/17/20 08:00 76 32 H 140/71 97 07/17/20 07:47 78 20 98 07/17/20 07:00 65 25 H 113/66 97 07/17/20 06:00 36.4 C L 72 26 H 106/62 95 07/17/20 05:00 66 28 H 115/71 95 07/17/20 04:00 36.4 C L 64 26 H 115/66 96 07/17/20 03:36 62 28 H 96 07/17/20 03:00 69 26 H 112/71 97 07/17/20 02:00 71 26 H 111/68 97 07/17/20 01:00 72 28 H 117/73 96 07/17/20 04:46 07/17/20 04:46 Coding Level of Care Code 87233 Subseq Hosp Care Lvl 3 Diagnoses Bowel perforation K63.1 Septic shock A41.9; R65.21 Anemia D64.9 Renal failure, acute N17.9 Diastolic CHF, chronic I50.32 Obesity hypoventilation syndrome E66.2
--- NOTE | 2020-07-17 14:25 | Hospitalist Progress Note ---
Date of Service July 17, 2020 Assessment & Plan (1) Septic shock: Septic shock has resolved, off pressors, blood pressure has been stable Admitted with severe sepsis with septic shock secondary to perforated viscus/peritonitis/fungemia, dislodged G-tube S/P Exp Laparotomy on 07/07 setting of free intraperitoneal air with replacement of gastric tube and drains Patient was intubated and , required pressor supports for hypotension Extubated on 07/14/2020 respiratory status stable /currently not requiring any supplemental O2. Initial procedure 06/26 for recurrent sigmoid volvulus with exp laparotomy, sigmoidectomy and gastrostomy by Dr. Ware Readmission on 07/07 with unresponsiveness, abdominal pain, severe pain. X-ray showed large amount of free air under diaphragm Per surgery procedure note, gastric stromal noted to be severely inflamed, friable, new G-tube with large balloon placed-to prevent dislodgment New replacement of G-tube almost obstructing the pylorus-patient should be n.p.o. for 2 weeks Started TPN on 07/15 G-tube to suction, draining green bilious material. Blood culture: Shantell glabrata, [facility] ID consulted appreciate input Cont 14 days treatment of caspofungin (2) Postoperative ileus: Resolved: Had multiple bowel movements, Patient will need to be strict n.p.o. for at least 2 weeks to allow healing of gastric stroma as explained above jenn. He is extubated 07/14. TPN started 07/15 (3) Bowel perforation: Due to dislodged G-tube, status post exploratory laparotomy, washout, replacement of G-tube Continue broad-spectrum antibiotic continue 7-10 days of treatment 2 weeks of antifungal treatment for fungemia (4) Fungemia: Blood culture: On 07/07/2020: Shantell Repeat blood culture on 07/09/2020: No growth Cont Caspofungin for 14 day course. No need for ANASTASIA at this time without persistent bloodstream infection. All lines were changed out on 07/11 (5) Diastolic CHF, chronic: Continue Lasix 40 mg IV twice daily: Discussed with critical care, patient stable to be transferred to PCU, will continue to monitor volume status, Consider an additional dose of IV Lasix if urine output noted to be low or patient appears to be volume overloaded/ (6) Bradycardia: No further episode, heart rate has been stable Has been off pressors for 48 hours. Appreciate input from cardiology No further procedural intervention needed (7) COPD (chronic obstructive pulmonary disease): chronic stable Was intubated sol and postoperatively secondary to septic shock. Resolved, in room air today (8) Obesity hypoventilation syndrome: (9) Anemia: 2/2 acute blood loss and multiple comorbidities/phlebotomy Patient received 1 unit PRBC on 07/08 in setting of hemoglobin drop to 7.4 Continue to monitor H&H (10) Post-operative state: (11) DVT prophylaxis: SQ Heparin Dispo: Transfer patient to PCU today. DNR/DNI Have a long discussion with patient's daughter Soniya, updated regarding patient's current status. Discussed briefly regarding discharge planning. Patient has / care with home health setting, feels comfortable the patient will be able to return home with TPN and IV caspofungin Patient still very ill, may need prolonged hospital stay Discharge disposition will depend on pt's progress OOB as tolerated PT OT eval requested, as patient is off pressors, Admission and Anticipated Discharge Date Admission Date: July 07, 2020 Subjective Patient awake, conversant today. No hypoxia, in room air, vitals remained stable, no episode of bradycardia Patient reports minimal pain on abdomen, no nausea, has been afebrile. g-tube continues to drain green bilious fluid. Received update from the nursing, patient was showing episodes of confusion, sundowning in the afternoon specially. Clinically improved to be transferred out of ICU today Review of Systems Review of Systems: All systems reviewed & are unremarkable except as noted in Subjective Physical Exam Physical Exam: Physical exam: General: Obese, chronically ill-appearing, HEENT: PERRLA, EOMI, Heart: Regular Lungs: Clear to auscultate, no wheeze or rales Abdomen: Mid abdominal surgical bandage, drain present, G-tube is attached to suction, drain is bilious fluid Extremity: Generalized weakness, +2 bilateral pitting edema Neuro: No focal neurological deficit normal speech, Psych: Alert awake oriented to place and person normal affect Results & Data Results & Data ([facility]) Vital Signs (Past 12 Hours) Vital Signs Temp Pulse Resp BP Pulse Ox 07/17/20 12:07 36.9 C 07/17/20 12:00 62 23 95 07/17/20 11:00 68 30 H 108/68 96 07/17/20 10:01 70 30 H 122/73 94 07/17/20 10:00 69 28 H 122/73 94 07/17/20 09:00 61 28 H 128/71 94 07/17/20 08:00 76 32 H 140/71 97 07/17/20 07:47 78 20 98 07/17/20 07:00 65 25 H 113/66 97 07/17/20 06:00 36.4 C L 72 26 H 106/62 95 07/17/20 05:00 66 28 H 115/71 95 07/17/20 04:00 36.4 C L 64 26 H 115/66 96 07/17/20 03:36 62 28 H 96 07/17/20 03:00 69 26 H 112/71 97
[2020-07-17] MEDS ORDERED: TPN IV SCH ×2 (16:00)
[2020-07-17] MEDS ORDERED: CENTRAL PN IV SCH ×2 (16:00)
[2020-07-17] MEDS ORDERED: Nursing to Pharmacy Communication SCH (19:45)
[2020-07-18] MEDS: INSULIN ASPART 100 UNITS/ML 3 ML PEN SC SCH ×4 (00:22→18:51)
[2020-07-18] MEDS: MEROPENEM 500 MG in SYRINGE 0 ML IV SCH ×4 (03:47→21:20)
[2020-07-18 06:21] LABS: Basophils # (auto) 0.06 K/uL (0-0.2); Basophils % (auto) 0.4 %; Eosinophils # (auto) 0.08 K/uL (0-0.5); Eosinophils % (auto) 0.5 %; Hematocrit (blood only) 28.6 % (42-52); Hemoglobin 9.2 g/dL (14.0-18.0); Immature Granulocytes # (auto) 0.35 K/uL (0.00-0.02); Immature Granulocytes % (auto) 2.2 %; Lymphocytes # (auto) 2.54 K/uL (1.2-3.4); Lymphocytes % (auto) 15.7 %; Mean Corpuscular Hemoglobin 29.1 pg (25-34); Mean Corpuscular Hgb Conc 32.2 g/dL (32-36); Mean Corpuscular Volume 90.5 fL (80-100); Mean Platelet Volume 9.2 fL (7.4-10.4); Monocytes # (auto) 1.04 K/uL (0.11-0.59); Monocytes % (auto) 6.4 %; Neutrophils # (auto) 12.12 K/uL (1.4-6.5); Neutrophils % (auto) 74.8 %; Platelet Count 445 K/uL (130-400); RDW Coefficient of Variation 16.8 % (11.5-14.5); RDW Standard Deviation 54.9 fL (36.4-46.3); Red Blood Count 3.16 M/uL (4.7-6.1); White Blood Count 16.19 K/uL (4.8-10.8)
[2020-07-18 06:49] LABS: BUN Creatinine Ratio 53.7 (10-20); Calcium 8.2 mg/dl (8.5-10.1); Creatinine Clr Calc Pharmacy 108.9 ml/min; Est GFR (Non-African American) 83.7 ml/min; Magnesium 2.2 mg/dl (1.8-2.4); Phosphorus 3.4 mg/dl (2.5-4.9); Potassium 3.2 mmol/L (3.5-5.1)
[2020-07-18] MEDS: FUROSEMIDE 40 MG in SYRINGE 0 ML IV SCH ×2 (08:04→16:20)
[2020-07-18] MEDS: FAMOTIDINE 20 MG in SYRINGE 3 ML IV SCH ×2 (08:04→21:20)
[2020-07-18] MEDS: CASPOFUNGIN 50 MG in SODIUM CHLORIDE 0.9% 250 ML IV SCH (08:04)
[2020-07-18] MEDS: HEPARIN SOD 5,000 UNIT/0.5 ML VIAL SQ SCH ×2 (08:05→21:21)
[2020-07-18] MEDS: POTASSIUM CHLORIDE / WTR 20 MEQ/100 ML PLCT IV SCH ×4 (11:55→17:47)
--- NOTE | 2020-07-18 12:27 | Surgery Progress Note ---
Date of Service July 18, 2020 Assessment & Plan (1) Perforated viscus: continues to slowly improve. nothing to add surgically. Dr. Solorio escalation engineer for weekend if any issues. Admission and Anticipated Discharge Date Admission Date: July 07, 2020 Subjective awake.alert. denies pain. Physical Exam Physical Exam: awake.oriented abd: soft. nt. wound looks good. Results & Data ([facility]) Vital Signs (Past 12 Hours) Vital Signs Temp Pulse Pulse Resp BP Pulse Ox 07/18/20 11:50 36.7 C 73 18 147/77 H 93 07/18/20 07:52 36.9 C 74 18 135/77 93 07/18/20 03:55 36.7 C 71 20 137/69 95 07/18/20 03:01 72 24 95 PG Care Time/CCT Total # of Minutes Spent Total Time Spent with Patient: Total time spent is greater than 50% in coordination of care (as documented) at patient's floor/unit and/or counseling patient: Coding Level of Care Code None Diagnoses Perforated viscus R19.8
[2020-07-18] MEDS ORDERED: TPN IV SCH (16:00)
[2020-07-18] MEDS ORDERED: CENTRAL PN IV SCH (16:00)
--- NOTE | 2020-07-18 17:41 | Hospitalist Progress Note ---
Date of Service July 18, 2020 Assessment & Plan (1) Septic shock: Septic shock has resolved, off pressors, blood pressure has been stable Patient is transferred out of the ICU First procedure, 06/26 for recurrent sigmoid volvulus with exp laparotomy, sigmoidectomy and gastrostomy by Dr. Ware Was discharged home with home health Readmission on 07/07 with unresponsiveness, abdominal pain, severe pain. X-ray showed large amount of free air under diaphragm Admitted with severe sepsis with septic shock secondary to perforated viscus/peritonitis/fungemia, dislodged G-tube S/P Exp Laparotomy on 07/07 setting of free intraperitoneal air with replacement of gastric tube and drains Patient was intubated and , required pressor supports for hypotension Extubated on 07/14/2020 respiratory status stable /currently not requiring any supplemental O2. Per surgery procedure note, gastric stromal noted to be severely inflamed, friable, new G-tube with large balloon placed-to prevent dislodgment New replacement of G-tube almost obstructing the pylorus-patient should be n.p.o. for 2 weeks Will be allowed to have sips of water and ice chips for comfort, G-tube needs to be on suction continuously Started TPN on 07/15 G-tube to suction, draining green bilious material. Candidal sepsis [facility] appreciate input Cont 14 days treatment of caspofungin (2) Postoperative ileus: Resolved: Had multiple bowel movements, Patient will need to be strict n.p.o. for at least 2 weeks to allow healing of gastric stroma as explained above jenn. He is extubated 07/14. TPN started 07/15 (3) Bowel perforation: Due to dislodged G-tube, status post exploratory laparotomy, washout, replacement of G-tube Continue broad-spectrum antibiotic continue 7-10 days of treatment 2 weeks of antifungal treatment for fungemia (4) Fungemia: Candidal sepsis Blood culture: On 07/07/2020: Shantell Repeat blood culture on 07/09/2020: No growth Cont Caspofungin for 14 day course. No need for ANASTASIA at this time without persistent bloodstream infection. All lines were changed out on 07/11 (5) Diastolic CHF, chronic: Continue Lasix 40 mg IV twice daily: Discussed with critical care, patient stable to be transferred to PCU, will continue to monitor volume status, Consider an additional dose of IV Lasix if urine output noted to be low or patient appears to be volume overloaded/ (6) Bradycardia: No further episode, heart rate has been stable Has been off pressors for 48 hours. Appreciate input from cardiology No further procedural intervention needed (7) COPD (chronic obstructive pulmonary disease): chronic stable Was intubated sol and postoperatively secondary to septic shock. Resolved, in room air today (8) Obesity hypoventilation syndrome: (9) Anemia: 2/2 acute blood loss and multiple comorbidities/phlebotomy Patient received 1 unit PRBC on 07/08 in setting of hemoglobin drop to 7.4 Continue to monitor H&H (10) Post-operative state: (11) DVT prophylaxis: SQ Heparin Disposition: To be determined Have a long discussion with patient's daughter Soniya, updated regarding patient's current status. Discussed briefly regarding discharge planning. Patient has 27/09 care with home health setting, feels comfortable the patient will be able to return home with TPN and IV caspofungin Patient still very ill, may need prolonged hospital stay Discharge disposition will depend on pt's progress DNR/DNI Admission and Anticipated Discharge Date Admission Date: July 07, 2020 Subjective awake.alert. denies pain in abdomen, Asking for sips of water and ice chips, G-tube is on continuous suction No complaint of chest pain or shortness of breath, patient remains in room air, No fever or chills Review of Systems Review of Systems: All systems reviewed & are unremarkable except as noted in Subjective Physical Exam Physical Exam: Physical exam: General: Obese, chronically ill-appearing, HEENT: PERRLA, EOMI, Heart: Regular Lungs: Clear to auscultate, no wheeze or rales Abdomen: Mid abdominal surgical bandage, drain present, G-tube is attached to suction, drain is bilious fluid Extremity: Generalized weakness, +2 bilateral pitting edema Neuro: No focal neurological deficit normal speech, Psych: Alert awake oriented to place and person normal affect Results & Data Results & Data ([facility]) Vital Signs (Past 12 Hours) Vital Signs Temp Pulse Resp BP Pulse Ox 07/18/20 15:46 36.7 C 63 19 122/74 93 07/18/20 11:50 36.7 C 73 18 147/77 H 93 07/18/20 07:52 36.9 C 74 18 135/77 25
[2020-07-19] MEDS: INSULIN ASPART 100 UNITS/ML 3 ML PEN SC SCH ×4 (00:44→18:23)
[2020-07-19] MEDS: MEROPENEM 500 MG in SYRINGE 0 ML IV SCH ×4 (04:27→22:13)
[2020-07-19 05:26] LABS: Basophils # (auto) 0.09 K/uL (0-0.2); Basophils % (auto) 0.6 %; Eosinophils # (auto) 0.06 K/uL (0-0.5); Eosinophils % (auto) 0.4 %; Hematocrit (blood only) 29.2 % (42-52); Hemoglobin 9.3 g/dL (14.0-18.0); Immature Granulocytes # (auto) 0.23 K/uL (0.00-0.02); Immature Granulocytes % (auto) 1.4 %; Lymphocytes # (auto) 2.29 K/uL (1.2-3.4); Lymphocytes % (auto) 14.3 %; Mean Corpuscular Hemoglobin 29.5 pg (25-34); Mean Corpuscular Hgb Conc 31.8 g/dL (32-36); Mean Corpuscular Volume 92.7 fL (80-100); Mean Platelet Volume 9.3 fL (7.4-10.4); Monocytes # (auto) 1.04 K/uL (0.11-0.59); Monocytes % (auto) 6.5 %; Neutrophils # (auto) 12.25 K/uL (1.4-6.5); Neutrophils % (auto) 76.8 %; Nucleated RBC # (auto) 0.03 K/uL (0-0); Nucleated RBC % (auto) 0.2 %; Platelet Count 471 K/uL (130-400); RDW Coefficient of Variation 17.5 % (11.5-14.5); RDW Standard Deviation 57.6 fL (36.4-46.3); Red Blood Count 3.15 M/uL (4.7-6.1); White Blood Count 15.96 K/uL (4.8-10.8)
[2020-07-19 06:03] LABS: BUN Creatinine Ratio 58.6 (10-20); Calcium 8.6 mg/dl (8.5-10.1); Creatinine Clr Calc Pharmacy 108.9 ml/min; Est GFR (Non-African American) 83.7 ml/min; Phosphorus 3.4 mg/dl (2.5-4.9); Potassium 3.8 mmol/L (3.5-5.1)
--- NOTE | 2020-07-19 06:07 | Surgery Progress Note ---
Date of Service July 19, 2020 Assessment & Plan (1) Perforated viscus: Postop day #13 exploratory laparotomy with gastrostomy repair: No new surgical issues noted over the past 24 to 48 hours Been noted previously by Dr. Damon patient required 2 weeks of TPN until his G-tube can be safely deflated and manipulated Patient is receiving subcutaneous heparin for DVT prevention Admission and Anticipated Discharge Date Admission Date: July 07, 2020 Subjective Patient is resting in bed. He denies any nausea vomiting or worsening abdominal pain. I discussed with the denitrator operator RN. This patient had approximately 200 cc of drainage from his G-tube last shift. She also notes he did have a bowel movement last shift. He has not identified any surgical issues. Physical Exam Gastrointestinal (Abdomen): Abdomen is rotund and soft. Bowel sounds are present. Pain is not elicited with palpation. Results & Data ([facility]) Vital Signs (Past 12 Hours) Vital Signs Temp Pulse Pulse Pulse Resp BP BP 07/19/20 03:22 36.2 C L 72 20 139/71 07/18/20 23:20 36.6 C 79 20 144/84 H 07/18/20 22:07 67 20 07/18/20 19:26 36.5 C 76 18 135/80 Pulse Ox 07/19/20 03:22 95 07/18/20 23:20 94 07/18/20 22:07 95 07/18/20 19:26 95 PG Care Time/CCT Total # of Minutes Spent Total Time Spent with Patient: Total time spent is greater than 50% in coordination of care (as documented) at patient's floor/unit and/or counseling patient: Coding Level of Care Code None Diagnoses Perforated viscus R19.8
[2020-07-19] MEDS: FAMOTIDINE 20 MG in SYRINGE 3 ML IV SCH ×2 (08:25→20:54)
[2020-07-19] MEDS: CASPOFUNGIN 50 MG in SODIUM CHLORIDE 0.9% 250 ML IV SCH (08:25)
[2020-07-19] MEDS: HEPARIN SOD 5,000 UNIT/0.5 ML VIAL SQ SCH ×2 (08:25→20:55)
[2020-07-19] MEDS: FUROSEMIDE 40 MG in SYRINGE 0 ML IV SCH ×2 (08:28→16:35)
[2020-07-19] MEDS: CENTRAL PN IV SCH (15:55)
[2020-07-19] MEDS: TPN IV SCH (15:55)
--- NOTE | 2020-07-19 16:27 | Hospitalist Progress Note ---
Date of Service July 19, 2020 Assessment & Plan (1) Septic shock: Admitted with severe sepsis with septic shock secondary to perforated viscus/peritonitis/fungemia, dislodged G-tube Required brief stay in ICU, and mechanical ventilation Patient is adequately resuscitated from septic shock, blood pressure has been stable, Currently in room air, conversing appropriately Continue on broad-spectrum antibiotic, NG tube suction for peritonitis First procedure, 06/26 for recurrent sigmoid volvulus with exp laparotomy, sigmoidectomy and gastrostomy by Dr. Ware Was discharged home with home health Readmission on 07/07 with unresponsiveness, abdominal pain, severe pain. X-ray showed large amount of free air under diaphragm S/P Exp Laparotomy on 07/07 setting of free intraperitoneal air with replacement of gastric tube and drains Patient was intubated and , required pressor supports for hypotension Extubated on 07/14/2020 respiratory status stable /currently not requiring any supplemental O2. Started TPN on 07/15 Per surgery operative note, gastric stroma noted to be severely inflamed, friable-possible causing dislodgment of prior G-tube new G-tube placed with large balloon placed-to prevent dislodgment Needs to be strict n.p.o. for 2 weeks to allow healing, patient will be continued with TPN during that. Will be allowed to have sips of water and ice chips for comfort, G-tube needs to be on suction continuously Candidal sepsis Blood culture: Shantell glabrata, Vic[facility] ID consulted appreciate input Cont 14 days treatment of caspofungin (2) Postoperative ileus: Resolved: Had multiple bowel movements, Continue on TPN Patient will need to be strict n.p.o. for at least 2 weeks to allow healing of gastric stroma as explained above (3) Bowel perforation: Due to dislodged G-tube, status post exploratory laparotomy, washout, replacement of G-tube Continue broad-spectrum antibiotic continue 7-10 days of treatment 2 weeks of antifungal treatment for fungemia (4) Fungemia: Candidal sepsis Blood culture: On 07/07/2020: Shantell Repeat blood culture on 07/09/2020: No growth Cont Caspofungin for 14 day course. No need for ANASTASIA at this time without persistent bloodstream infection. All lines were changed out on 07/11 (5) Diastolic CHF, chronic: Continue Lasix 40 mg IV twice daily: Discussed with critical care, patient stable to be transferred to PCU, will continue to monitor volume status, Consider an additional dose of IV Lasix if urine output noted to be low or patient appears to be volume overloaded/ (6) Bradycardia: No further episode, heart rate has been stable Has been off pressors for 48 hours. Appreciate input from cardiology No further procedural intervention needed (7) COPD (chronic obstructive pulmonary disease): chronic stable Was intubated sol and postoperatively secondary to septic shock. Resolved, in room air today (8) Obesity hypoventilation syndrome: (9) Anemia: 2/2 acute blood loss and multiple comorbidities/phlebotomy Patient received 1 unit PRBC on 07/08 in setting of hemoglobin drop to 7.4 Continue to monitor H&H (10) Post-operative state: (11) DVT prophylaxis: SQ Heparin Disposition: To be determined Have a long discussion with patient's daughter Soniya, updated regarding patient's current status. Discussed briefly regarding discharge planning. Patient has / care with home health setting, feels comfortable the patient will be able to return home with TPN and IV caspofungin Patient still very ill, may need prolonged hospital stay Discharge disposition will depend on pt's progress DNR/DNI Admission and Anticipated Discharge Date Admission Date: July 07, 2020 Subjective Awake and alert, appears to be comfortable, very pleasant, Says he is having a good day, no abdominal pain or discomfort, on G-tube on suction mode Appreciate if that he is allowed to have sips of water or beverage intermittently as his mouth and throat is gets very dry No fever chills, no cough no shortness of breath Review of Systems Review of Systems: All systems reviewed & are unremarkable except as noted in Subjective Physical Exam Physical Exam: Physical exam: General: Obese, chronically ill-appearing, HEENT: PERRLA, EOMI, Heart: Regular Lungs: Clear to auscultate, no wheeze or rales Abdomen: Mid abdominal surgical bandage, drain present, G-tube is attached to suction, drain is bilious fluid Extremity: Generalized weakness, +2 bilateral pitting edema Neuro: No focal neurological deficit normal speech, Psych: Alert awake oriented to place and person normal affect Results & Data Results & Data ([facility]) Vital Signs (Past 12 Hours) Vital Signs Temp Pulse Pulse Pulse Resp BP BP 07/19/20 15:31 36.5 C 60 16 129/80 05/15/21 14:57 68 07/19/20 11:34 36.5 C 70 18 155/85 H 07/19/20 10:26 71 07/19/20 10:20 36.9 C 105 H 24 92/59 L 07/19/20 07:49 36.9 C 70 20 130/78 Pulse Ox 07/19/20 15:31 94 07/19/20 14:57 07/19/20 11:34 94 07/19/20 10:26 07/19/20 10:20 94 07/19/20 07:49 95
[2020-07-19] MEDS ORDERED: LORazepam 0.25 MG/0.5 ML VIAL IV STA (22:44)
[2020-07-20] MEDS: INSULIN ASPART 100 UNITS/ML 3 ML PEN SC SCH ×4 (00:03→17:10)
[2020-07-20 05:48] LABS: Basophils # (auto) 0.16 K/uL (0-0.2); Basophils % (auto) 1.1 %; Eosinophils # (auto) 0.05 K/uL (0-0.5); Eosinophils % (auto) 0.3 %; Hemoglobin 9.7 g/dL (14.0-18.0); Immature Granulocytes # (auto) 0.16 K/uL (0.00-0.02); Immature Granulocytes % (auto) 1.1 %; Lymphocytes # (auto) 2.39 K/uL (1.2-3.4); Lymphocytes % (auto) 15.9 %; Mean Corpuscular Hemoglobin 29.8 pg (25-34); Mean Corpuscular Hgb Conc 32.3 g/dL (32-36); Mean Platelet Volume 9.4 fL (7.4-10.4); Monocytes # (auto) 1.12 K/uL (0.11-0.59); Monocytes % (auto) 7.4 %; Neutrophils # (auto) 11.17 K/uL (1.4-6.5); Neutrophils % (auto) 74.2 %; Platelet Count 462 K/uL (130-400); RDW Coefficient of Variation 17.6 % (11.5-14.5); RDW Standard Deviation 58.3 fL (36.4-46.3); Red Blood Count 3.26 M/uL (4.7-6.1); White Blood Count 15.05 K/uL (4.8-10.8)
[2020-07-20] MEDS: FUROSEMIDE 40 MG in SYRINGE 0 ML IV SCH ×2 (08:52→16:56)
[2020-07-20] MEDS: CASPOFUNGIN 50 MG in SODIUM CHLORIDE 0.9% 250 ML IV SCH (08:52)
[2020-07-20] MEDS: FAMOTIDINE 20 MG in SYRINGE 3 ML IV SCH ×2 (08:52→20:43)
[2020-07-20] MEDS: HEPARIN SOD 5,000 UNIT/0.5 ML VIAL SQ SCH ×2 (08:53→20:42)
[2020-07-20] MEDS ORDERED: LEVOTHYROXINE SODIUM 88 MCG in SYRINGE 0 ML IV SCH (09:00)
[2020-07-20] MEDS: CENTRAL PN IV SCH (15:59)
[2020-07-20] MEDS: TPN IV SCH (15:59)
--- NOTE | 2020-07-20 15:59 | Hospitalist Progress Note ---
Date of Service July 20, 2020 Assessment & Plan (1) Septic shock: Admitted with severe sepsis with septic shock secondary to perforated viscus/peritonitis/fungemia, dislodged G-tube Required brief stay in ICU, and mechanical ventilation Patient is adequately resuscitated from septic shock, blood pressure has been stable, Currently in room air, conversing appropriately Continue on broad-spectrum antibiotic, NG tube suction for peritonitis First procedure, 06/26 for recurrent sigmoid volvulus with exp laparotomy, sigmoidectomy and gastrostomy by Dr. Ware Was discharged home with home health Readmission on 07/07 with unresponsiveness, abdominal pain, severe pain. X-ray showed large amount of free air under diaphragm S/P Exp Laparotomy on 07/07 setting of free intraperitoneal air with replacement of gastric tube and drains Patient was intubated and , required pressor supports for hypotension Extubated on 07/14/2020 respiratory status stable /currently not requiring any supplemental O2. Started TPN on 07/15 Per surgery operative note, gastric stroma noted to be severely inflamed, friable-possible causing dislodgment of prior G-tube new G-tube placed with large balloon placed-to prevent dislodgment Needs to be strict n.p.o. for 2 weeks to allow healing, patient will be continued with TPN during that. Patient is allowed to have sips of water and ice chips for comfort, G-tube needs to be on suction continuously Patient will need continued hospital stay as long as he requires continuous tube suction. Candidal sepsis Blood culture: Shantell glabrata, Tristaner ID consulted appreciate input Cont 14 days treatment of caspofungin (2) Postoperative ileus: Resolved: Had multiple bowel movements, Continue on TPN Patient will need to be strict n.p.o. for at least 2 weeks to allow healing of gastric stroma as explained above (3) Bowel perforation: Due to dislodged G-tube, status post exploratory laparotomy, washout, replacement of G-tube Continue broad-spectrum antibiotic continue 7-10 days of treatment 2 weeks of antifungal treatment for fungemia (4) Fungemia: Candidal sepsis Blood culture: On 07/07/2020: Shantell Repeat blood culture on 07/09/2020: No growth Cont Caspofungin for 14 day course. No need for ANASTASIA at this time without persistent bloodstream infection. All lines were changed out on 07/11 (5) Diastolic CHF, chronic: Continue Lasix 40 mg IV twice daily: Discussed with critical care, patient stable to be transferred to PCU, will continue to monitor volume status, Consider an additional dose of IV Lasix if urine output noted to be low or patient appears to be volume overloaded/ (6) Bradycardia: No further episode, heart rate has been stable Has been off pressors for 48 hours. Appreciate input from cardiology No further procedural intervention needed (7) COPD (chronic obstructive pulmonary disease): chronic stable Was intubated sol and postoperatively secondary to septic shock. Resolved, in room air today (8) Obesity hypoventilation syndrome: (9) Anemia: 2/2 acute blood loss and multiple comorbidities/phlebotomy Patient received 1 unit PRBC on 07/08 in setting of hemoglobin drop to 7.4 Continue to monitor H&H (10) Post-operative state: (11) DVT prophylaxis: SQ Heparin Disposition: To be determined Have a long discussion with patient's daughter Soniya, updated regarding patient's current status. Discussed briefly regarding discharge planning. Patient has / care with home health setting, feels comfortable the patient will be able to return home with TPN and IV caspofungin Patient still very ill, may need prolonged hospital stay Discharge disposition will depend on pt's progress DNR/DNI Admission and Anticipated Discharge Date Admission Date: July 07, 2020 Subjective Offers no pain or discomfort, awake and alert, feels much better, no pain or discomfort on abdomen, no nausea vomiting, NG tube still draining bilious material Stable vitals no fever or chills Physical Exam Physical Exam: Physical exam: General: Obese, chronically ill-appearing no acute distress, alert awake oriented x3 HEENT: Anicteric sclera Heart: Regular S1-S2, Lungs: Diminished no wheeze or rales Abdomen: Distended, surgical bandage present with G-tube /bowel sounds diminished Extremity: No cyanosis, or rash Neuro: No focal neurological deficit normal speech, Psych: Alert awake oriented x3, normal affect Results & Data Results & Data ([facility]) Vital Signs (Past 12 Hours) Vital Signs Temp Pulse Pulse Resp BP Pulse Ox 07/20/20 15:57 36.6 C 62 20 138/78 95 07/20/20 14:06 65 07/20/20 11:30 36.9 C 69 18 128/80 95 07/20/20 07:26 36.5 C 68 18 136/79 95 07/20/20 06:58 62 07/20/20 04:27 68
[2020-07-20] MEDS ORDERED: CENTRAL PN IV SCH (16:00)
[2020-07-20] MEDS ORDERED: TPN IV SCH (16:00)
[2020-07-21] MEDS: INSULIN ASPART 100 UNITS/ML 3 ML PEN SC SCH ×4 (00:21→17:56)
[2020-07-21 06:10] LABS: Basophils # (auto) 0.16 K/uL (0-0.2); Basophils % (auto) 1.3 %; Eosinophils # (auto) 0.09 K/uL (0-0.5); Eosinophils % (auto) 0.7 %; Hematocrit (blood only) 32.8 % (42-52); Hemoglobin 10.4 g/dL (14.0-18.0); Immature Granulocytes # (auto) 0.11 K/uL (0.00-0.02); Immature Granulocytes % (auto) 0.9 %; Lymphocytes # (auto) 2.18 K/uL (1.2-3.4); Lymphocytes % (auto) 17.8 %; Mean Corpuscular Hemoglobin 29.9 pg (25-34); Mean Corpuscular Hgb Conc 31.7 g/dL (32-36); Mean Corpuscular Volume 94.3 fL (80-100); Mean Platelet Volume 9.3 fL (7.4-10.4); Monocytes # (auto) 1.17 K/uL (0.11-0.59); Monocytes % (auto) 9.5 %; Neutrophils # (auto) 8.55 K/uL (1.4-6.5); Neutrophils % (auto) 69.8 %; Platelet Count 447 K/uL (130-400); RDW Coefficient of Variation 18.1 % (11.5-14.5); RDW Standard Deviation 59.4 fL (36.4-46.3); Red Blood Count 3.48 M/uL (4.7-6.1); White Blood Count 12.26 K/uL (4.8-10.8)
[2020-07-21] MEDS: CASPOFUNGIN 50 MG in SODIUM CHLORIDE 0.9% 250 ML IV SCH (08:06)
[2020-07-21] MEDS: FAMOTIDINE 20 MG in SYRINGE 3 ML IV SCH ×2 (08:06→20:10)
[2020-07-21] MEDS: HEPARIN SOD 5,000 UNIT/0.5 ML VIAL SQ SCH ×2 (08:06→20:10)
--- NOTE | 2020-07-21 08:33 | Surgery Progress Note ---
Date of Service July 21, 2020 Assessment & Plan (1) Perforated viscus: Postop day #14 exploratory laparotomy with gastrostomy repair Continue with TPN likely another week until G-tube balloon can be safely deflated Will remove abdominal jonh today as above. doing well from my stanpoint. wounds look good. continue current care from my standpoint. Admission and Anticipated Discharge Date Admission Date: July 07, 2020 Subjective Patient says he is feeling okay. Remains on TPN, denies much of an appetite. + BM's. Physical Exam Physical Exam: awake/alert Constitutional: no acute distress Gastrointestinal (Abdomen): Inspection/Auscultation: + abdominal surgical incision (c/d/i with surgical jonh in place) Percussion/Palpation: abdomen soft g-tube with bilious drainage Results & Data ([facility]) Vital Signs (Past 12 Hours) Vital Signs Temp Pulse Pulse Resp BP Pulse Ox 07/21/20 07:41 36.4 C L 66 16 131/80 96 07/21/20 03:28 36.4 C L 67 20 143/78 H 95 07/21/20 01:17 63 24 94 07/20/20 23:09 57 L 07/20/20 22:39 36 C L 72 20 131/83 96 07/20/20 22:08 70 24 95 PG Care Time/CCT Total # of Minutes Spent Total Time Spent with Patient: Total time spent is greater than 50% in coordination of care (as documented) at patient's floor/unit and/or counseling patient: Coding Level of Care Code None Diagnoses Perforated viscus R19.8
[2020-07-21] MEDS: FUROSEMIDE 40 MG in SYRINGE 0 ML IV SCH (08:44)
[2020-07-21 09:29] LABS: BUN Creatinine Ratio 60.2 (10-20); Calcium 8.6 mg/dl (8.5-10.1); Creatinine Clr Calc Pharmacy 98.1 ml/min; Est GFR (African American) 91.4 ml/min; Est GFR (Non-African American) 78.8 ml/min; Magnesium 2.2 mg/dl (1.8-2.4); Potassium 4.1 mmol/L (3.5-5.1)
[2020-07-21 09:34] LABS: Bilirubin,Total 0.5 mg/dl (0.2-1); Phosphorus 4.7 mg/dl (2.5-4.9)
[2020-07-21] MEDS ORDERED: SODIUM CHLORIDE 0.9% 1000ML 1,000 ML IV SCH (12:00)
[2020-07-21] MEDS: D5W AND NSS 1,000 ML IV SCH ×2 (12:46→22:19)
--- NOTE | 2020-07-21 14:10 | Communication Note ---
Date of Service: July 21, 2020 Lorenzo Jackson' had a positive cdiff gene last admission negative cdiff gene test this admission and he is not on treatment for cdiff received Notification from Infection control as per [facility] policy pt does not require contact Isolation ordered to discontinue Isolation , Ioana Martin MD
[2020-07-21 16:29] LABS: BUN Creatinine Ratio 55.3 (10-20); Calcium 8.4 mg/dl (8.5-10.1); Creatinine Clr Calc Pharmacy 90.2 ml/min; Est GFR (African American) 82.6 ml/min; Est GFR (Non-African American) 71.3 ml/min; Potassium 3.8 mmol/L (3.5-5.1)
[2020-07-21 20:53] LABS: BUN Creatinine Ratio 49.3 (10-20); Calcium 9.1 mg/dl (8.5-10.1); Creatinine Clr Calc Pharmacy 84.3 ml/min; Est GFR (African American) 76.1 ml/min; Est GFR (Non-African American) 65.7 ml/min; Potassium 3.7 mmol/L (3.5-5.1)
[2020-07-22] MEDS: INSULIN ASPART 100 UNITS/ML 3 ML PEN SC SCH ×4 (00:15→18:30)
[2020-07-22 05:43] LABS: Basophils # (auto) 0.14 K/uL (0-0.2); Basophils % (auto) 1.4 %; Eosinophils # (auto) 0.05 K/uL (0-0.5); Eosinophils % (auto) 0.5 %; Hematocrit (blood only) 30.3 % (42-52); Hemoglobin 9.3 g/dL (14.0-18.0); Immature Granulocytes # (auto) 0.06 K/uL (0.00-0.02); Immature Granulocytes % (auto) 0.6 %; Mean Corpuscular Hemoglobin 29.3 pg (25-34); Mean Corpuscular Hgb Conc 30.7 g/dL (32-36); Mean Corpuscular Volume 95.6 fL (80-100); Mean Platelet Volume 9.6 fL (7.4-10.4); Monocytes # (auto) 0.81 K/uL (0.11-0.59); Monocytes % (auto) 8.1 %; Neutrophils # (auto) 7.04 K/uL (1.4-6.5); Neutrophils % (auto) 70.4 %; Platelet Count 413 K/uL (130-400); RDW Coefficient of Variation 18.5 % (11.5-14.5); RDW Standard Deviation 61.6 fL (36.4-46.3); Red Blood Count 3.17 M/uL (4.7-6.1)
[2020-07-22 06:02] LABS: BUN Creatinine Ratio 52.1 (10-20); Calcium 8.1 mg/dl (8.5-10.1); Creatinine Clr Calc Pharmacy 85.9 ml/min; Est GFR (African American) 77.9 ml/min; Est GFR (Non-African American) 67.2 ml/min; Magnesium 2.4 mg/dl (1.8-2.4); Phosphorus 4.3 mg/dl (2.5-4.9); Potassium 3.6 mmol/L (3.5-5.1)
[2020-07-22] MEDS ORDERED: DEXTROSE 5% 1,000 ML IV SCH (07:30)
[2020-07-22] MEDS: CASPOFUNGIN 50 MG in SODIUM CHLORIDE 0.9% 250 ML IV SCH (08:30)
[2020-07-22] MEDS: FAMOTIDINE 20 MG in SYRINGE 3 ML IV SCH ×2 (08:31→21:55)
[2020-07-22] MEDS: HEPARIN SOD 5,000 UNIT/0.5 ML VIAL SQ SCH ×2 (08:31→21:53)
--- NOTE | 2020-07-22 08:57 | Nephrology Consultation ---
Date of Consultation July 22, 2020 Assessment & Plan (1) Disorders of fluid, electrolyte, and acid-base balance: Mild hypernatremia without symptoms in a patient who is essentially n.p.o. though transitioning slowly to clears and being maintained currently with D5 water. He also has mild hypokalemia and mild hyperchloremia as well as elevated bicarb and BUN. Stopped Lasix Continue D5 water current rate but will add 20 mEq/L potassium -monitor bmp q8hr; q4hr not needed; order changed Present on Admission?: No History of Present Illness Reason for Consultation: hypernatremia Requesting Physician: Dr Martin Attending Physician: Ioana Martin MD History of Present Illness Exceptionally complex 79-year-old gentleman whom I am asked to see for hypernatremia was admitted here July 06 with septic shock from bowel perforation, peritonitis and fungemia and with acute on chronic respiratory failure. He had an extended admission here from June to the during which he underwent 2 decompressive colonoscopies but ultimately required open sigmoidectomy on June 26 to treat recurrent sigmoid volvulus. That admission was also complicated by acute kidney injury, gout flare, urinary retention for which she was discharged with a Ibanez. On July 07 he underwent emergent ex lap with replacement of dislodged gastric tube. He had stage 2 acute kidney injury on presentation with creatinine 1.7. His most recent baseline in late June had been 0.6-0.7 creatinine in the wake of extended illness. His acute kidney injury resolved quickly with definitive management of sepsis. Other medical history includes heart failure with preserved ejection fraction, hypertension, COPD and obesity hypoventilation syndrome with room air by day (not 4 L oxygen by day historically) and BiPAP overnight, class II obesity with BMI 38 at last hospital discharge, gout, hyperlipidemia. He had issues with combined total body overload and hypernatremia during June admission and we did follow him for this. His sodium remained within normal limits during this admission until July 19. Since that time it has ranged in the high 40s with value today 150. He is 1.7 L positive overall since July 18 and has been aggressively diuresed in the past 36 - 48 hours. Overall on the admission he is 7.2 L negative. His TPN was stopped yesterday; today he started taking very small sips with supervision of apple juice only. He is currently receiving caspofungin, D5 water at 100 mL hourly, Lasix 40 mg IV twice daily 17. He is currently feeling well: Denies shortness of breath, cough, abdominal pain, musculoskeletal or chest pain. He endorses thirst. Endorses generalized weakness; states he is doing exercises on his own. Allergies Allergy/AdvReac Type Severity Reaction Status Date / Time No Known Allergies Allergy Verified 07/06/20 21:30 Home Medications Medication Instructions Recorded Confirmed Type amlodipine 5 mg tablet 5 mg PO QAM 11/20/18 07/10/20 History aspirin 81 mg tablet,delayed 81 mg PO QAM 11/20/18 07/10/20 History release simvastatin 20 mg tablet 20 mg PO HS tab 11/20/18 07/10/20 History bumetanide 1 mg tablet 1.5 mg PO BID tab 01/08/19 07/10/20 History cholecalciferol (vitamin D3) 25 1,000 units PO QAM 01/08/19 07/10/20 History mcg (1,000 unit) capsule colchicine 0.6 mg capsule 0.6 mg PO QAM 01/08/19 07/10/20 History CPAP Machine #1 ea 02/07/19 07/10/20 Rx Oxygen Home #1 ea 05/13/19 07/10/20 Rx calcium carbonate [Tums] 200 mg PO BID PRN 05/16/20 07/10/20 History levothyroxine 175 mcg PO DAILYBB 06/13/20 07/10/20 History colchicine [Colcrys] 0.6 mg PO BID 30 Days #60 tab 07/04/20 07/10/20 Rx pantoprazole 40 mg PO QAM 30 Days #30 tab 07/04/20 07/10/20 Rx tamsulosin [Flomax] 0.4 mg PO HS #30 cap 07/04/20 07/10/20 Rx L.acidop,nury,lac,rha-B.lac,taz 2 cap PO QAM 07/06/20 07/10/20 History [Advanced Probiotic] Patient History Medical History Acute kidney failure on 06/14/20 Anemia Dyslipidemia GERD (gastroesophageal reflux disease) HTN (hypertension) Hx of gout Hypothyroidism Leukocytosis Neuropathy Obesity On home oxygen therapy 4 LPM qHS Restrictive lung disease Sleep apnea BiPAP + O2 at 4 LPM Venous insufficiency Surgical History H/O exploratory laparotomy (07/06/20) Exploratory Laparotomy, Repair of Gastrostomy, Replacement of Gastrostomy. Tube, and Abdominal Washout. - Shola Damon DO History of cataract surgery RT. 06/03/20. [facility]. 2mg versed, 50mcg fentanyl. no issues reported. History of colonoscopy S/P laparotomy (06/26/20) Laparoscopy converted to laparotomy, resection of descending sigmoid colon, partial rectal resection, gastrostomy - Hugo Ware MD, FACS Family History Father Hypertension Mother Lung cancer Aunt Diabetes Aunt Diabetes Other No family history of adverse response to anesthesia No significant family history Social History Smoking Status: Never smoker Second Hand Exposure: No; Hx Alcohol Use: No Hx Substance Use: No Preferred Language: Spanish Communication Ability: Effective Visual Impairment: No Limitations Back Order Clerk Required: No Beliefs That Will Affect Care: None marital status: Current Living Situation: Spouse 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 Other Information That Helps Us Care for You: No Feels Safe at Home: Yes Safety Concerns: Feels Safe At This Time Assistive Devices: BiPap Review of Systems Review of Systems: All systems reviewed & are unremarkable except as noted in HPI & below Physical Exam Constitutional: well developed, well nourished, + obese, + frail appearing and cooperative; no acute distress Eyes: EOM intact bilaterally ENMT: Ears: no external ear abnormality Nose: no external nose abnormality Mouth: + dry oral mucous membranes Neck: no nuchal rigidity Respiratory: normal respiratory effort Auscultation: + diminished lung sounds On room air Cardiovascular: Rate/Rhythm: regular rate and regular rhythm Extremities: + edema (Indurated trace bilateral pedal and pretibial) Gastrointestinal (Abdomen): Inspection/Auscultation: normal bowel sounds Pe rcussion/Palpation: abdomen soft; abdomen nontender Gastrostomy tube in the epigastrium with addition of brown drainage scant; TPN disconnected Musculoskeletal: Extremities: strength 5/5 throughout Skin: no rashes, warm and dry Neurologic: cary, fluent speech, no tremor Psychiatric: A+Ox3, euthymic affect Speech: normal rate/rhythm/volume of speech Genitourinary: Ibanez with ample light yellow urine Results & Data ([facility]) Vital Signs (Past 12 Hours) Vital Signs Temp Pulse Pulse Resp BP Pulse Ox 07/22/20 07:42 90 18 95 07/22/20 07:07 53 L 07/22/20 07:05 36.4 C L 65 20 123/72 96 07/22/20 04:00 36.4 C L 68 20 130/70 95 07/22/20 03:26 89 18 96 07/22/20 00:48 77 07/21/20 23:13 36.9 C 68 20 137/83 95 07/21/20 22:25 64 18 95 Laboratory Results 07/22/20 05:27 07/22/20 05:27
[2020-07-22 10:52] LABS: BUN Creatinine Ratio 47.1 (10-20); Calcium 8.5 mg/dl (8.5-10.1); Creatinine Clr Calc Pharmacy 81.9 ml/min; Est GFR (African American) 74.4 ml/min; Est GFR (Non-African American) 64.2 ml/min; Potassium 3.5 mmol/L (3.5-5.1)
[2020-07-22] MEDS: POTASSIUM CHLORIDE 20 MEQ in DEXTROSE 5% 1,000 ML IV SCH ×2 (11:42→21:51)
[2020-07-22 14:49] LABS: BUN Creatinine Ratio 54.8 (10-20); Calcium 8.5 mg/dl (8.5-10.1); Est GFR (African American) 85.7 ml/min; Est GFR (Non-African American) 73.9 ml/min; Potassium 3.6 mmol/L (3.5-5.1)
[2020-07-22] MEDS: POTASSIUM CHLORIDE / WTR 20 MEQ/100 ML PLCT IV SCH ×2 (19:46→21:52)
[2020-07-22 23:09] LABS: BUN Creatinine Ratio 46.7 (10-20); Calcium 8.7 mg/dl (8.5-10.1); Creatinine Clr Calc Pharmacy 89.3 ml/min; Est GFR (African American) 82.6 ml/min; Est GFR (Non-African American) 71.3 ml/min; Potassium 3.9 mmol/L (3.5-5.1)
[2020-07-23] MEDS: INSULIN ASPART 100 UNITS/ML 3 ML PEN SC SCH ×4 (00:03→18:17)
[2020-07-23 07:24] LABS: BUN Creatinine Ratio 42.5 (10-20); Calcium 9.1 mg/dl (8.5-10.1); Creatinine Clr Calc Pharmacy 90.3 ml/min; Est GFR (African American) 83.6 ml/min; Est GFR (Non-African American) 72.1 ml/min; Potassium 3.8 mmol/L (3.5-5.1)
--- NOTE | 2020-07-23 07:43 | Hospitalist Progress Note ---
Date of Service July 22, 2020 late entry :patient was seen on July 21 @ 2 pm Assessment & Plan (1) Septic shock: Admitted with severe sepsis with septic shock secondary to perforated viscus/peritonitis/fungemia, dislodged G-tube Required brief stay in ICU, and mechanical ventilation Patient is adequately resuscitated from septic shock, blood pressure has been stable, Currently in room air, conversing appropriately First procedure, 06/26 for recurrent sigmoid volvulus with exp laparotomy, sigmoidectomy and gastrostomy by Dr. Ware Was discharged home with home health Readmission on 07/07 with unresponsiveness, abdominal pain, severe pain. X-ray showed large amount of free air under diaphragm S/P Exp Laparotomy on 07/07 setting of free intraperitoneal air with replacement of gastric tube and drains Patient was intubated and , required pressor supports for hypotension Extubated on 07/14/2020 respiratory status stable /currently not requiring any supplemental O2. Started TPN on 07/15 Per surgery operative note, gastric stroma noted to be severely inflamed, friable-possible causing dislodgment of prior G-tube new G-tube placed with large balloon placed-to prevent dislodgment Needs to be strict n.p.o. for 2 weeks to allow healing, patient will be continued with TPN during that. Patient is allowed to have sips of water and ice chips for comfort with G-tube drainage G tube balloon obstructing stomach pylorus , causing iatrogenic gastric outlet obstruction per surgery -G tube Balloon needs to deflated prior ordering any PO diet Candidal sepsis Blood culture: Shantell glabrata, Vicente ID consulted appreciate input Cont 14 days treatment of caspofungin (2) Postoperative ileus: Resolved: Had multiple bowel movements, Continue on TPN Patient will need to be strict n.p.o. for at least 2 weeks to allow healing of gastric stroma as explained above (3) Bowel perforation: Due to dislodged G-tube, status post exploratory laparotomy, washout, replacement of G-tube with large Balloon obstructing pylorus . Continue broad-spectrum antibiotic continue 7-10 days of treatment 2 weeks of antifungal treatment for fungemia (4) Fungemia: Candidal sepsis Blood culture: On 07/07/2020: Shantell Repeat blood culture on 07/09/2020: No growth Cont Caspofungin for 14 day course. No need for ANASTASIA at this time without persistent bloodstream infection. All lines were changed out on 07/11 (5) Diastolic CHF, chronic: pt currently appears to volume depleted Lasix ordered to d/c Given IV fluid Hypernatremia : Na elevated > 149 - due to intravascular vol depletion Lasix d/nehemias ordered iv fluids, TPN on hold till Hypernatremia is resolved Nephrology consulted , appreciate input (6) Bradycardia: No further episode, heart rate has been stable Appreciate input from cardiology No further procedural intervention needed (7) COPD (chronic obstructive pulmonary disease): chronic stable (8) Obesity hypoventilation syndrome: (9) Anemia: 2/2 acute blood loss and multiple comorbidities/phlebotomy Patient received 1 unit PRBC on 07/08 in setting of hemoglobin drop to 7.4 Continue to monitor H&H (10) Post-operative state: (11) DVT prophylaxis: SQ Heparin Disposition: To be determined Have a long discussion with patient's daughter Soniya, updated regarding patient's current status. Discussed briefly regarding discharge planning. Patient has 27/09 care with home health setting, feels comfortable the patient will be able to return home with TPN Pt/OT eval , case management consulted for dc planning DNR/DNI Admission and Anticipated Discharge Date Admission Date: July 07, 2020 Subjective Patient says he is feeling okay. no complain of abdominal pain no nausea /vomiting remains on sips of water and ice cips ( pt prefers sips of juice or clear soda - ordered ) G tube continued to drain c Review of Systems Review of Systems: All systems reviewed & are unremarkable except as noted in Subjective Physical Exam Physical Exam: Physical exam: General: Obese, chronically ill-appearing no acute distress, alert awake oriented x3 HEENT: Anicteric sclera Heart: Regular S1-S2, Lungs: Diminished no wheeze or rales Abdomen: Distended, surgical bandage present /G-tube on gravity drainage -with dark /coffee ground drainage /bowel sounds diminished Extremity: No cyanosis, or rash Neuro: No focal neurological deficit normal speech, Psych: Alert awake oriented x3, normal affect Results & Data Results & Data ([facility]) Vital Signs (Past 12 Hours) Vital Signs Temp Pulse Pulse Resp BP Pulse Ox 07/23/20 07:19 36.4 C L 59 L 18 139/87 98 07/23/20 06:59 67 07/23/20 04:11 36.5 C 63 19 146/61 H 94 07/23/20 03:26 64 20 97 07/22/20 23:07 36.4 C L 57 L 19 137/80 94 07/22/20 22:48 53 L 07/22/20 22:41 66 22 96
[2020-07-23] MEDS: POTASSIUM CHLORIDE 20 MEQ in DEXTROSE 5% 1,000 ML IV SCH (09:00)
[2020-07-23] MEDS: FAMOTIDINE 20 MG in SYRINGE 3 ML IV SCH (09:01)
[2020-07-23] MEDS: CASPOFUNGIN 50 MG in SODIUM CHLORIDE 0.9% 250 ML IV SCH (09:01)
[2020-07-23] MEDS: HEPARIN SOD 5,000 UNIT/0.5 ML VIAL SQ SCH ×2 (09:01→21:27)
[2020-07-23] MEDS: LEVOTHYROXINE SODIUM 88 MCG in SYRINGE 0 ML IV SCH (09:24)
[2020-07-23 10:52] LABS: Hematocrit (blood only) 31.8 % (42-52); Mean Corpuscular Hemoglobin 29.9 pg (25-34); Mean Corpuscular Hgb Conc 31.4 g/dL (32-36); Mean Corpuscular Volume 95.2 fL (80-100); Mean Platelet Volume 10.6 fL (7.4-10.4); Platelet Count 427 K/uL (130-400); RDW Coefficient of Variation 18.5 % (11.5-14.5); RDW Standard Deviation 62.4 fL (36.4-46.3); Red Blood Count 3.34 M/uL (4.7-6.1); White Blood Count 9.97 K/uL (4.8-10.8)
[2020-07-23] MEDS: PANTOprazole 40 MG in SYRINGE 0 ML IV SCH (11:25)
--- NOTE | 2020-07-23 12:44 | Nephrology Progress Note ---
Date of Service July 23, 2020 Assessment & Plan (1) Disorders of fluid, electrolyte, and acid-base balance: Mild hypernatremia and hypokalemia without symptoms in a patient who is essentially n.p.o. in the wake of aggressive diuresis. electrolyte issues have been corrected. he will be going back to TPN and I've been talking to pharmacy to coordinate this -- will stop ivf and give 1.8-2 L daily volume w/ TPN (a bit more than previously but a bit less than intake past 48 hrs w/ fluid resu scitation). interval resolution of mild hyperchloremia, though still with elevated bicarb and BUN. will continue to follow (2) Confusion: new today along w/ increased /high pitched bowel sounds -- primary service and RN aware and will f/u; may need abd imaging and /or repeat urine,blood cultures Present on Admission?: Yes Admission and Anticipated Discharge Date Admission Date: July 07, 2020 Subjective seen on rounds 930; no c/o sob, edema, uncontrolled pain. [place] and so hopes to go home soon; when I explain we are making arrangements to avoid readmission, he states "I don't want to go back to surgery where I saw so many people with guns out coming after me." Review of Systems Review of Systems: All systems reviewed & are unremarkable except as noted in Subjective Physical Exam Constitutional: well developed, well nourished, + obese, + frail appearing and cooperative; no acute distress Eyes: EOM intact bilaterally ENMT: Ears: no external ear abnormality Nose: no external nose abnormality Mouth: + dry oral mucous membranes Neck: no nuchal rigidity Respiratory: normal respiratory effort Auscultation: + diminished lung sounds Cardiovascular: Rate/Rhythm: regular rate and regular rhythm Extremities: + edema (Indurated trace bilateral pedal and pretibial) Gastrointestinal (Abdomen): Inspection/Auscultation: + high-pitched sounds and + hyperactive bowel sounds Percussion/Palpation: abdomen soft; abdomen nontender g tube w/ scant brownish output Musculoskeletal: Extremities: strength 5/5 throughout Skin: no rashes, warm and dry Neurologic: cary, fluent speech, no tremor Psychiatric: A+Ox3, euthymic affect Speech: normal rate/rhythm/volume of speech Insight: + limited insight Judgement: + limited judgement Genitourinary: vann w/ ample urine Results & Data ([place]) Vital Signs (Past 12 Hours) Vital Signs Temp Pulse Pulse Resp BP Pulse Ox 07/23/20 11:25 36.4 C L 59 L 18 97 07/23/20 07:19 36.4 C L 59 L 18 139/87 98 07/23/20 06:59 67 07/23/20 04:11 36.5 C 63 19 146/61 H 94 07/23/20 03:26 64 20 97 Laboratory Results 07/23/20 06:29 07/23/20 06:26
[2020-07-23 13:23] LABS: Gastric Occult Blood Negative (Negative)
[2020-07-23 14:23] LABS: BUN Creatinine Ratio 40.7 (10-20); Calcium 8.7 mg/dl (8.5-10.1); Creatinine Clr Calc Pharmacy 89.4 ml/min; Est GFR (African American) 82.6 ml/min; Est GFR (Non-African American) 71.3 ml/min; Potassium 3.9 mmol/L (3.5-5.1)
--- NOTE | 2020-07-23 14:45 | Hospitalist Progress Note ---
Date of Service July 23, 2020 Assessment & Plan (1) Septic shock: Meet septic criteria on admission with tachycardia and leukocytosis severe sepsis with septic shock secondary to perforated viscus/peritonitis/fungemia, dislodged G-tube Required brief stay in ICU and mechanical ventilation First procedure, 06/26 for recurrent sigmoid volvulus with exp laparotomy, sigmoidectomy and gastrostomy by Dr. Ware Readmission on 07/07 with unresponsiveness, abdominal pain, severe pain. X-ray on admission showed large amount of free air under diaphragm S/P Exp Laparotomy on 07/07 setting of free intraperitoneal air with replacement of gastric tube and drains Patient was intubated and , required pressor supports for hypotension Extubated on 07/14/2020 respiratory status stable /currently not requiring any supplemental O2. Per surgery operative note, gastric stroma noted to be severely inflamed, friable-possible causing dislodgment of prior G-tube Started TPN on 07/15 s/P G-tube placement with large balloon placed-to prevent dislodgment Needs to be strict n.p.o. for 2 weeks to allow healing, Continue with TPN for another week until G-tube balloon can be safely deflated as per surgery Patient is allowed to have sips of water and ice chips for comfort with G-tube drainage G tube balloon obstructing stomach pylorus , causing iatrogenic gastric outlet obstruction per surgery -G tube Balloon needs to deflated prior ordering any PO diet Candidal sepsis Blood culture: Shantell glabrata Vicente ID consulted recommended to complete 14 days treatment of caspofungin (last dose 07/23) (2) Postoperative ileus: Had multiple bowel movements, Continue on TPN Patient will need to be strict n.p.o. for at least 2 weeks to allow healing of gastric stroma as explained above Abdomen with mild tender Will get a KUB today (3) Bowel perforation: Due to dislodged G-tube, status post exploratory laparotomy, washout, replacement of G-tube with large Balloon obstructing pylorus . Completed broad-spectrum antibiotic Completed 2 weeks course of caspofungin (Last dose 07/23) (4) Fungemia: Candidal sepsis Blood culture: On 07/07/2020: Shantell Repeat blood culture on 07/09/2020: No growth Cont Caspofungin for 14 day course. No need for ANASTASIA at this time without persistent bloodstream infection. All lines were changed out on 07/11 (5) Diastolic CHF, chronic: pt currently appears to volume depleted Lasix ordered to d/c Given IV fluid Hypernatremia : Na 143 today due to intravascular vol depletion Lasix discontinued Nephrology consulted Continue monitor BMP (6) Bradycardia: No further episode, heart rate has been stable Appreciate input from cardiology No further procedural intervention needed (7) COPD (chronic obstructive pulmonary disease): chronic stable (8) Obesity hypoventilation syndrome: (9) Anemia: 2/2 acute blood loss and multiple comorbidities/phlebotomy Patient received 1 unit PRBC on 07/08 in setting of hemoglobin drop to 7.4 Hgb stable at 10 (10) Post-operative state: (11) DVT prophylaxis: SQ Heparin Disposition:Will discharge once medically stable Patient has 27/09 care with home health setting, feels comfortable the patient will be able to return home with TPN Pt/OT eval , case management consulted for dc planning DNR/DNI Admission and Anticipated Discharge Date Admission Date: July 07, 2020 Subjective Pt was seen and examined for follow up of abdominal pain and g-tube placement Lying in bed with no distress Pt said that he feels ok Pt seems to be at his baseline Denies any chest pain, palpitation and sob Review of Systems Review of Systems: All systems reviewed & are unremarkable except as noted in Subjective Physical Exam Physical Exam: General- No acute distress Head- atraumatic Eyes- PERRL, EOMI, ENT- oropharynx clear Neck- supple, no JVD Lungs- clear to auscultation Heart- regular rhythm; no murmur Abdomen- distended, surgical bandage present /G-tube on gravity drainage , bowel sounds diminished Extremities- no calf tenderness Neuro- alert, oriented x 3; PERRL, EOMI; no facial palsy; no dysarthria Skin- warm & dry Results & Data Results & Data ([facility]) Vital Signs (Past 12 Hours) Vital Signs Temp Pulse Pulse Resp BP Pulse Ox 07/23/20 11:25 36.4 C L 59 L 18 97 07/23/20 07:19 36.4 C L 59 L 18 139/87 98 07/23/20 06:59 67 07/23/20 04:11 36.5 C 63 19 146/61 H 94 07/23/20 03:26 64 20 97
--- NOTE | 2020-07-23 14:58 | Pharmacy Report ---
PHA: Parenteral Nutrition Con - Date of Service July 23, 2020 - Scope Pharmacy was consulted on 07/15/20 to manage parenteral nutrition orders for this patient. - Subjective The patient is currently on day 9 of central parenteral nutrition. - Objective Height: 6 ft 6 in Weight: 126.8 kg Diet: NPO Intake & Output (24hrs):: Intake & Output 07/21/20 07/22/20 07/23/20 07/24/20 06:59 06:59 06:59 06:59 Intake Total 1694 / 1694 4104.667 / 4104.667 2720 / 2720 1010 / 1010 Output Total 3100 / 3100 2560 / 2560 1750 / 1750 450 / 450 Balance -1406 / -1406 1544.667 / 1544.667 970 / 970 560 / 560 Weight 126.3 kg 126.8 kg Laboratory Data (Last 24 Hr):: 07/22/20 07/22/20 07/23/20 14:16 22:17 06:26 Sodium 148 H 145 144 Potassium 3.6 3.9 3.8 Chloride 110 H 108 H 107 Carbon Dioxide 33 H 32 33 H BUN 53 H 47 H 42 H Creatinine 0.97 1.00 0.99 Glucose 105 H 105 H 112 H Calcium 8.5 8.7 9.1 07/23/20 13:38 Sodium 143 Potassium 3.9 Chloride 106 Carbon Dioxide 32 BUN 41 H Creatinine 1.00 Glucose 116 H Calcium 8.7 Nutrition Assessment:: Please refer to the Notes section of the EMR for the most recent wire puller note. - Assessment * TPN held on 07/21 and 07/22 due to hypernatremia - treated with D5 w/ KCl * Na+ now 144 today and okay to restart TPN per hospitalist/appeals nurse * Electrolytes largely stable - will hold off on additional sodium in today's TPN (reassess in AM) * Will continue macronutrients from last bag on 07/20 - plan to incorporate lipids tomorrow if triglycerides WNL * Electrolytes, Mg, Phos, and LFTs ordered for tomorrow as well * Discussed with nephrology who suggested 2348-2057 mL/day - will utilize 2000 mL today * IV fluids will be discontinued at time of TPN initiation - Plan For day 9 of PN administration, the following will be ordered: Macronutrients Amino acids 100 grams/day Dextrose 250 grams/day No lipids Micronutrients Potassium phosphate 45 mMol Potassium chloride 40 mEq Potassium acetate 40 mEq Multivitamins 10 mL Trace Elements 1 mL Additional additives: thiamine 100 mg Total volume 2000 mL to be infused over 24 hrs will provide 1250 kcal/day Labs, as indicated, will be ordered per protocol Pharmacy will continue to follow and adjust parenteral nutrition orders on a daily basis. Thank you for allowing us to participate in the care of this patient.
[2020-07-23] MEDS ORDERED: Custom Central Pn 2,000 ML in TPN BAG 0 ML IV SCH (16:00)
[2020-07-23] MEDS ORDERED: TPN IV SCH (16:00)
[2020-07-23] MEDS ORDERED: CENTRAL PN IV SCH (16:00)
--- NOTE | 2020-07-23 19:10 | XRay Report ---
KUB CLINICAL HISTORY: f/u COMPARISON STUDY: KUB July 14, 2020. FINDINGS: Ibanez balloon is in place. There may be gas within the bladder. There has been interval dev elopment of moderate distention of small and large bowel since prior examination. Lucency under the r ight hemidiaphragm is noted. IMPRESSION: 1. Interval development of moderate small and large bowel dilatation. This favors an ileus however di stal colonic obstruction could appear similar. 2. Lucency under the right hemidiaphragm. This may be artifactual however pneumoperitoneum cannot be excluded. An upright abdominal radiograph is recommended. ACT 112: Negative or not required by law. Electronically signed by: Octavio Castanon M.D. 07/23/2020 7:09 PM
[2020-07-24] MEDS: INSULIN ASPART 100 UNITS/ML 3 ML PEN SC SCH ×4 (06:04→18:20)
[2020-07-24 06:18] LABS: BUN Creatinine Ratio 44.8 (10-20); Calcium 8.1 mg/dl (8.5-10.1); Creatinine Clr Calc Pharmacy 99.4 ml/min; Est GFR (African American) 93.8 ml/min; Est GFR (Non-African American) 80.9 ml/min; Magnesium 2.2 mg/dl (1.8-2.4); Potassium 4.2 mmol/L (3.5-5.1)
[2020-07-24 06:24] LABS: Phosphorus 3.5 mg/dl (2.5-4.9)
[2020-07-24] MEDS: HEPARIN SOD 5,000 UNIT/0.5 ML VIAL SQ SCH ×2 (08:40→21:01)
[2020-07-24 10:23] LABS: Bilirubin,Total 0.5 mg/dl (0.2-1)
[2020-07-24] MEDS: PANTOprazole 40 MG in SYRINGE 0 ML IV SCH (13:54)
--- NOTE | 2020-07-24 15:23 | Hospitalist Progress Note ---
Date of Service July 24, 2020 Assessment & Plan (1) Septic shock: Meet septic criteria on admission with tachycardia and leukocytosis severe sepsis with septic shock secondary to perforated viscus/peritonitis/fungemia, dislodged G-tube Required brief stay in ICU and mechanical ventilation First procedure, 06/26 for recurrent sigmoid volvulus with exp laparotomy, sigmoidectomy and gastrostomy by Dr. Ware Readmission on 07/07 with unresponsiveness, abdominal pain, severe pain. X-ray on admission showed large amount of free air under diaphragm S/P Exp Laparotomy on 07/07 setting of free intraperitoneal air with replacement of gastric tube and drains Patient was intubated and , required pressor supports for hypotension Extubated on 07/14/2020 respiratory status stable /currently not requiring any supplemental O2. Per surgery operative note, gastric stroma noted to be severely inflamed, friable-possible causing dislodgment of prior G-tube Started TPN on 07/15 s/P G-tube placement with large balloon placed-to prevent dislodgment Needs to be strict n.p.o. for 2 weeks to allow healing, Continue with TPN for another week until G-tube balloon can be safely deflated as per surgery Patient is allowed to have sips of water and ice chips for comfort with G-tube drainage G tube balloon obstructing stomach pylorus , causing iatrogenic gastric outlet obstruction per surgery -G tube Balloon needs to deflated prior ordering any PO diet Clinically stable Candidal sepsis Blood culture: Shantell glabrata Vicente ID consulted recommended to complete 14 days treatment of caspofungin (last dose 07/23) (2) Postoperative ileus: Had multiple bowel movements, Continue on TPN Patient will need to be strict n.p.o. for at least 2 weeks to allow healing of gastric stroma as explained above KUB showed interval development of moderate small and large bowel dilatation. This favors an ileus however distal colonic obstruction could appear similar. Imaging finding discussed with surgery team Ok from surgical standpoint to discharge home in am (3) Bowel perforation: Due to dislodged G-tube, status post exploratory laparotomy, washout, replacement of G-tube with large Balloon obstructing pylorus . Completed broad-spectrum antibiotic Completed 2 weeks course of caspofungin (Last dose 07/23) (4) Fungemia: Candidal sepsis Blood culture: On 07/07/2020: Shantell Repeat blood culture on 07/09/2020: No growth Cont Caspofungin for 14 day course. No need for ANASTASIA at this time without persi stent bloodstream infection. All lines were changed out on 07/11 (5) Diastolic CHF, chronic: pt currently appears to volume depleted Continue TPN Continue monitor closely for fluid overload Hypernatremia : Na 143 today due to intravascular vol depletion Lasix discontinued Nephrology consulted Continue monitor BMP (6) Bradycardia: No further episode, heart rate has been stable Appreciate input from cardiology No further procedural intervention needed (7) COPD (chronic obstructive pulmonary disease): chronic stable (8) Obesity hypoventilation syndrome: (9) Anemia: 2/2 acute blood loss and multiple comorbidities/phlebotomy Patient received 1 unit PRBC on 07/08 in setting of hemoglobin drop to 7.4 Hgb stable at 10 (10) Post-operative state: (11) DVT prophylaxis: SQ Heparin Disposition:Will discharge once medically stable Patient has / care with home health setting, feels comfortable the patient will be able to return home with TPN Pt/OT eval , case management consulted for dc planning DNR/DNI Admission and Anticipated Discharge Date Admission Date: July 07, 2020 Subjective Pt was seen and examined for follow up of abdominal pain and g-tube placement Lying in bed with no distress with daughter present at bedside Pt said that he feels ok.Pt seems to be at his baseline Denies any chest pain, palpitation and sob Review of Systems Review of Systems: All systems reviewed & are unremarkable except as noted in Subjective Physical Exam Physical Exam: General- No acute distress Head- atraumatic Eyes- PERRL, EOMI, ENT- oropharynx clear Neck- supple, no JVD Lungs- clear to auscultation Heart- regular rhythm; no murmur Abdomen- distended, surgical bandage present /G-tube on gravity drainage , bowel sounds diminished Extremities- no calf tenderness Neuro- alert, oriented x 3; PERRL, EOMI; no facial palsy; no dysarthria Skin- warm & dry Results & Data Results & Data ([facility]) Vital Signs (Past 12 Hours) Vital Signs Temp Pulse Pulse Resp BP BP Pulse Ox 07/24/20 15:02 36.9 C 67 18 125/72 95 07/24/20 12:01 36.7 C 68 20 119/69 95 07/24/20 08:12 36.8 C 72 18 118/74 93 07/24/20 07:21 64 07/24/20 04:00 36.5 C 58 L 18 132/76 95 07/24/20 03:25 54 L 18 96
[2020-07-24] MEDS ORDERED: Custom Central Pn 2,000 ML in TPN BAG 0 ML IV SCH (16:00)
[2020-07-25] MEDS: INSULIN ASPART 100 UNITS/ML 3 ML PEN SC SCH ×4 (00:09→18:38)
[2020-07-25 06:03] LABS: Hematocrit (blood only) 30.2 % (42-52); Hemoglobin 9.8 g/dL (14.0-18.0); Mean Corpuscular Hemoglobin 30.2 pg (25-34); Mean Corpuscular Hgb Conc 32.5 g/dL (32-36); Mean Corpuscular Volume 92.9 fL (80-100); Nucleated RBC # (auto) 0.03 K/uL (0-0); Nucleated RBC % (auto) 0.3 %; Platelet Count 406 K/uL (130-400); RDW Standard Deviation 59.7 fL (36.4-46.3); Red Blood Count 3.25 M/uL (4.7-6.1); White Blood Count 8.87 K/uL (4.8-10.8)
[2020-07-25 06:37] LABS: BUN Creatinine Ratio 55.7 (10-20); Creatinine Clr Calc Pharmacy 105.7 ml/min; Est GFR (African American) 96.1 ml/min; Est GFR (Non-African American) 82.9 ml/min; Magnesium 2.1 mg/dl (1.8-2.4); Phosphorus 3.5 mg/dl (2.5-4.9); Potassium 3.5 mmol/L (3.5-5.1)
[2020-07-25] MEDS: HEPARIN SOD 5,000 UNIT/0.5 ML VIAL SQ SCH ×2 (08:26→20:00)
[2020-07-25] MEDS: PANTOprazole 40 MG in SYRINGE 0 ML IV SCH (13:18)
[2020-07-25] MEDS ORDERED: Custom Central Pn 2,000 ML in TPN BAG 0 ML IV SCH (16:00)
--- NOTE | 2020-07-25 16:44 | Hospitalist Progress Note ---
Date of Service July 25, 2020 Assessment & Plan (1) Septic shock: Meet septic criteria on admission with tachycardia and leukocytosis severe sepsis with septic shock secondary to perforated viscus/peritonitis/fungemia, dislodged G-tube Required brief stay in ICU and mechanical ventilation First procedure, 06/26 for recurrent sigmoid volvulus with exp laparotomy, sigmoidectomy and gastrostomy by Dr. Ware Readmission on 07/07 with unresponsiveness, abdominal pain, severe pain. X-ray on admission showed large amount of free air under diaphragm S/P Exp Laparotomy on 07/07 setting of free intraperitoneal air with replacement of gastric tube and drains Patient was intubated and , required pressor supports for hypotension Extubated on 07/14/2020 respiratory status stable /currently not requiring any supplemental O2. Per surgery operative note, gastric stroma noted to be severely inflamed, friable-possible causing dislodgment of prior G-tube Started TPN on 07/15 s/P G-tube placement with large balloon placed-to prevent dislodgment Needs to be strict n.p.o. for 2 weeks to allow healing, Continue with TPN for another week until G-tube balloon can be safely deflated as per surgery Patient is allowed to have sips of water and ice chips for comfort with G-tube drainage G tube balloon obstructing stomach pylorus , causing iatrogenic gastric outlet obstruction per surgery -G tube Balloon needs to deflated prior ordering any PO diet Will need lab twice a week for the TPN ( BMP, Mg, phosp) Clinically stable Candidal sepsis Blood culture: Shantell glabrata Tristaner ID consulted Completed 14 days treatment of caspofungin (last dose 07/23) (2) Postoperative ileus: Had multiple bowel movements, Continue on TPN Patient will need to be strict n.p.o. for at least 2 weeks to allow healing of gastric stroma as explained above KUB showed interval development of moderate small and large bowel dilatation. This favors an ileus however distal colonic obstruction could appear similar. Imaging finding discussed with surgery team Ok from surgical standpoint to discharge home in am (3) Bowel perforation: Due to dislodged G-tube, status post exploratory laparotomy, washout, replacement of G-tube with large Balloon obstructing pylorus . Completed broad-spectrum antibiotic Completed 2 weeks course of caspofungin (Last dose 07/23) (4) Fungemia: Candidal sepsis Blood culture: On 07/07/2020: Shantell Repeat blood culture on 07/09/2020: No growth Cont Caspofungin for 14 day course. No need for ANASTASIA at this time without persistent bloodstream infection. All lines were changed out on 07/11 (5) Diastolic CHF, chronic: pt currently appears to volume depleted Continue TPN Continue monitor closely for fluid overload Case discussed nephrology that recommended to hold the home Bumex PO on discharge Hypernatremia : Na 142 today due to intravascular vol depletion Lasix discontinued Nephrology consulted Continue monitor BMP (6) Bradycardia: No further episode, heart rate has been stable Appreciate input from cardiology No further procedural intervention needed (7) COPD (chronic obstructive pulmonary disease): chronic stable (8) Obesity hypoventilation syndrome: (9) Anemia: 2/2 acute blood loss and multiple comorbidities/phlebotomy Patient received 1 unit PRBC on 07/08 in setting of hemoglobin drop to 7.4 Hgb stable at 9.8 (10) Post-operative state: (11) DVT prophylaxis: SQ Heparin Disposition Daughter unable to take him home until Tuesday DNR/DNI Admission and Anticipated Discharge Date Admission Date: July 07, 2020 Subjective Pt was seen and examined for follow up g-tube placement Lying in bed with no distress Pt said that he feels ok. Tried to call daughter to provide with update, no one answered. Left voicemail Case management said that daughter doesn't want to take him home until Tuesday Denies any chest pain, palpitation and sob Review of Systems Review of Systems: All systems reviewed & are unremarkable except as noted in Subjective Physical Exam Physical Exam: General- No acute distress Head- atraumatic Eyes- PERRL, EOMI, ENT- oropharynx clear Neck- supple, no JVD Lungs- clear to auscultation Heart- regular rhythm; no murmur Abdomen- distended, surgical bandage present /G-tube on gravity drainage , bowel sounds diminished Extremities- no calf tenderness Neuro- alert, oriented x 3; PERRL, EOMI; no facial palsy; no dysarthria Skin- warm & dry Results & Data Results & [facility] ([facility]) Vital Signs (Past 12 Hours) Vital Signs Temp Pulse Pulse Resp BP Pulse Ox 07/25/20 16:33 36.6 C 63 20 148/77 H 96 07/25/20 11:09 36.6 C 68 18 131/76 96 07/25/20 07:38 36.8 C 87 20 105/62 98 07/25/20 07:17 62
[2020-07-26] MEDS: INSULIN ASPART 100 UNITS/ML 3 ML PEN SC SCH ×4 (00:59→18:06)
[2020-07-26 06:45] LABS: BUN Creatinine Ratio 67.4 (10-20); Calcium 8.2 mg/dl (8.5-10.1); Creatinine Clr Calc Pharmacy 119.8 ml/min; Est GFR (African American) 101.1 ml/min; Est GFR (Non-African American) 87.2 ml/min; Magnesium 1.8 mg/dl (1.8-2.4); Potassium 3.8 mmol/L (3.5-5.1)
[2020-07-26 06:46] LABS: Phosphorus 3.9 mg/dl (2.5-4.9)
[2020-07-26 10:29] LABS: BUN Creatinine Ratio 65.1 (10-20); Calcium 7.9 mg/dl (8.5-10.1); Creatinine Clr Calc Pharmacy 116.7 ml/min; Est GFR (Non-African American) 86.3 ml/min; Magnesium 1.9 mg/dl (1.8-2.4); Phosphorus 3.6 mg/dl (2.5-4.9); Potassium 4.2 mmol/L (3.5-5.1)
[2020-07-26] MEDS: HEPARIN SOD 5,000 UNIT/0.5 ML VIAL SQ SCH ×2 (10:51→21:30)
[2020-07-26] MEDS: LEVOTHYROXINE SODIUM 88 MCG in SYRINGE 0 ML IV SCH (10:54)
[2020-07-26] MEDS: PANTOprazole 40 MG in SYRINGE 0 ML IV SCH (10:54)
--- NOTE | 2020-07-26 15:49 | Hospitalist Progress Note ---
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 Ware Readmission on 07/07 with unresponsiveness, abdominal pain, severe pain. X-ray on admission showed large amount of free air under diaphragm S/P Exp Laparotomy on 07/07 setting of free intraperitoneal air with replacement of gastric tube and drains Patient was intubated and , required pressor supports for hypotension Extubated on 07/14/2020 respiratory status stable /currently not requiring any supplemental O2. Per surgery operative note, gastric stroma noted to be severely inflamed, friable-possible causing dislodgment of prior G-tube Started TPN on 07/15 s/P G-tube placement with large balloon placed-to prevent dislodgment Needs to be strict n.p.o. for 2 weeks to allow healing, Continue with TPN for another week until G-tube balloon can be safely deflated as per surgery Patient is allowed to have sips of water and ice chips for comfort with G-tube drainage G tube balloon obstructing stomach pylorus , causing iatrogenic gastric outlet obstruction per surgery -G tube Balloon needs to deflated prior ordering any PO diet Will need lab twice a week for the TPN ( BMP, Mg, phosp) Clinically stable Candidal sepsis Blood culture: Shantell glabrata Tristaner ID consulted Completed 14 days treatment of caspofungin (last dose 07/23) (2) Postoperative ileus: Had multiple bowel movements, Continue on TPN Patient will need to be strict n.p.o. for at least 2 weeks to allow healing of gastric stroma as explained above KUB showed interval development of moderate small and large bowel dilatation. This favors an ileus however distal colonic obstruction could appear similar. Imaging finding discussed with surgery team Ok from surgical standpoint to discharge home in am (3) Bowel perforation: Due to dislodged G-tube, status post exploratory laparotomy, washout, replacement of G-tube with large Balloon obstructing pylorus . Completed broad-spectrum antibiotic Completed 2 weeks course of caspofungin (Last dose 07/23) (4) Fungemia: Candidal sepsis Blood culture: On 07/07/2020: Shantell Repeat blood culture on 07/09/2020: No growth Cont Caspofungin for 14 day course. No need for ANASTASIA at this time without persistent bloodstream infection. Completed the course of caspofungin (5) Diastolic CHF, chronic: pt currently appears to volume depleted Continue TPN Continue monitor closely for fluid overload Case discussed nephrology that recommended to hold the home Bumex PO on discharge Hypernatremia : Na 142 today due to intravascular vol depletion Lasix discontinued Nephrology consulted Continue monitor BMP (6) Bradycardia: No further episode, heart rate has been stable Appreciate input from cardiology No further procedural intervention needed (7) COPD (chronic obstructive pulmonary disease): chronic stable (8) Obesity hypoventilation syndrome: (9) Anemia: 2/2 acute blood loss and multiple comorbidities/phlebotomy Patient received 1 unit PRBC on 07/08 in setting of hemoglobin drop to 7.4 Hgb stable at 9.8 (10) Post-operative state: (11) DVT prophylaxis: SQ Heparin Disposition Daughter unable to take him home until Tuesday DNR/DNI Admission and Anticipated Discharge Date Admission Date: July 07, 2020 Subjective Pt was seen and examined for follow up g-tube placement Lying in bed with no distress Pt said that he feels ok Denies any chest pain, palpitation and sob Review of Systems Review of Systems: All systems reviewed & are unremarkable except as noted in Subjective Physical Exam Physical Exam: General- No acute distress Head- atraumatic Eyes- PERRL, EOMI, ENT- oropharynx clear Neck- supple, no JVD Lungs- clear to auscultation Heart- regular rhythm; no murmur Abdomen- distended, surgical bandage present /G-tube on gravity drainage , bowel sounds diminished Extremities- no calf tenderness Neuro- alert, oriented x 3; PERRL, EOMI; no facial palsy; no dysarthria Skin- warm & dry Results & Data Results & Data ([facility]) Vital Signs (Past 12 Hours) Vital Signs Temp Pulse Pulse Resp BP Pulse Ox 07/26/20 15:38 36.8 C 69 20 117/67 94 07/26/20 14:55 64 07/26/20 11:29 36.8 C 67 20 120/71 94 07/26/20 07:41 36.6 C 63 20 117/67 94 07/26/20 07:24 59 L 07/26/20 04:11 36.8 C 72 18 124/65 94
[2020-07-26] MEDS ORDERED: Custom Central Pn 2,000 ML in TPN BAG 0 ML IV SCH (16:00)
[2020-07-27 06:51] LABS: BUN Creatinine Ratio 74.8 (10-20); Calcium 8.1 mg/dl (8.5-10.1); Creatinine Clr Calc Pharmacy 145.3 ml/min; Est GFR (African American) 109.4 ml/min; Est GFR (Non-African American) 94.4 ml/min; Magnesium 1.8 mg/dl (1.8-2.4); Potassium 3.6 mmol/L (3.5-5.1)
[2020-07-27] MEDS: INSULIN ASPART 100 UNITS/ML 3 ML PEN SC SCH ×4 (06:59→18:43)
[2020-07-27 07:01] LABS: Phosphorus 2.7 mg/dl (2.5-4.9)
[2020-07-27] MEDS: HEPARIN SOD 5,000 UNIT/0.5 ML VIAL SQ SCH ×2 (07:32→20:28)
[2020-07-27] MEDS: PANTOprazole 40 MG in SYRINGE 0 ML IV SCH (12:30)
--- NOTE | 2020-07-27 14:37 | Hospitalist Progress Note ---
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 Ware Readmission on 07/07 with unresponsiveness, abdominal pain, severe pain. X-ray on admission showed large amount of free air under diaphragm S/P Exp Laparotomy on 07/07 setting of free intraperitoneal air with replacement of gastric tube and drains Patient was intubated and , required pressor supports for hypotension Extubated on 07/14/2020 respiratory status stable /currently not requiring any supplemental O2. Per surgery operative note, gastric stroma noted to be severely inflamed, friable-possible causing dislodgment of prior G-tube Started TPN on 07/15 s/P G-tube placement with large balloon placed-to prevent dislodgment Needs to be strict n.p.o. for 2 weeks to allow healing, Continue with TPN for another week until G-tube balloon can be safely deflated as per surgery Patient is allowed to have sips of water and ice chips for comfort with G-tube drainage G tube balloon obstructing stomach pylorus , causing iatrogenic gastric outlet obstruction per surgery -G tube Balloon needs to deflated prior ordering any PO diet Will need lab twice a week for the TPN ( BMP, Mg, phosp) Will talk to surgery in am about about next follow up Clinically stable Candidal sepsis Blood culture: Shantell glabrata [facility] ID consulted Completed 14 days treatment of caspofungin (last dose 07/23) (2) Postoperative ileus: Had multiple bowel movements, Continue on TPN Patient will need to be strict n.p.o. for at least 2 weeks to allow healing of gastric stroma as explained above KUB showed interval development of moderate small and large bowel dilatation. This favors an ileus however distal colonic obstruction could appear similar. Imaging finding discussed with surgery team Ok from surgical standpoint to discharge home in am (3) Bowel perforation: Due to dislodged G-tube, status post exploratory laparotomy, washout, replacement of G-tube with large Balloon obstructing pylorus . Completed broad-spectrum antibiotic Completed 2 weeks course of caspofungin (Last dose 07/23) (4) Fungemia: Candidal sepsis Blood culture: On 07/07/2020: Shantell Repeat blood culture on 07/09/2020: No growth Cont Caspofungin for 14 day course. No need for ANASTASIA at this time without persistent bloodstream infection. Completed the course of caspofungin (5) Diastolic CHF, chronic: pt currently appears to volume depleted Continue TPN Continue monitor closely for fluid overload Case discussed nephrology that recommended to hold the home Bumex PO on discharge Hypernatremia : Na 144 today due to intravascular vol depletion Lasix discontinued Nephrology consulted Continue monitor BMP twice weekly (6) Bradycardia: No further episode, heart rate has been stable Appreciate input from cardiology No further procedural intervention needed (7) COPD (chronic obstructive pulmonary disease): chronic stable (8) Obesity hypoventilation syndrome: (9) Anemia: 2/2 acute blood loss and multiple comorbidities/phlebotomy Patient received 1 unit PRBC on 07/08 in setting of hemoglobin drop to 7.4 Hgb stable at 9.8 (10) Post-operative state: (11) DVT prophylaxis: SQ Heparin Disposition Daughter unable to take him home until Tuesday DNR/DNI Admission and Anticipated Discharge Date Admission Date: July 07, 2020 Subjective Pt was seen and examined for follow up g-tube placement Lying in bed with no distress. Pt said that he feels ok Spoke to daughter this morning and provided with updates and answered all the questions Denies any chest pain, palpitation and sob Review of Systems Review of Systems: All systems reviewed & are unremarkable except as noted in Subjective Physical Exam Physical Exam: General- No acute distress Head- atraumatic Eyes- PERRL, EOMI, ENT- oropharynx clear Neck- supple, no JVD Lungs- clear to auscultation Heart- regular rhythm; no murmur Abdomen- distended, surgical bandage present /G-tube on gravity drainage , bowel sounds diminished Extremities- no calf tenderness Neuro- alert, oriented x 3; PERRL, EOMI; no facial palsy; no dysarthria Skin- warm & dry Results & Data Results & Data ([facility]) Vital Signs (Past 12 Hours) Vital Signs Temp Pulse Pulse Resp BP Pulse Ox 07/27/20 11:16 37.1 C 75 20 107/62 94 07/27/20 07:33 36.8 C 75 20 119/70 93 07/27/20 06:57 75 07/27/20 03:52 36.6 C 96 H 20 127/70 97
[2020-07-27] MEDS ORDERED: Custom Central Pn 2,000 ML in TPN BAG 0 ML IV SCH (16:00)
[2020-07-28] MEDS: INSULIN ASPART 100 UNITS/ML 3 ML PEN SC SCH ×4 (01:52→18:36)
[2020-07-28 06:53] LABS: BUN Creatinine Ratio 65.4 (10-20); Creatinine Clr Calc Pharmacy 147.6 ml/min; Est GFR (African American) 110.1 ml/min; Potassium 3.7 mmol/L (3.5-5.1)
[2020-07-28] MEDS: HEPARIN SOD 5,000 UNIT/0.5 ML VIAL SQ SCH ×2 (09:00→19:35)
--- NOTE | 2020-07-28 10:23 | Surgery Progress Note ---
Date of Service July 28, 2020 Assessment & Plan (1) Post-operative state: POD 22 ex lap/gastrostomy replacement 10 cc removed from gastrostomy balloon, will recheck contrast study and if OK can clamp tube and try increasing po intake Admission and Anticipated Discharge Date Admission Date: 2020 Subjective no nausea, drinking some apple juice, G tube open Physical Exam Gastrointestinal (Abdomen): Inspection/Auscultation: abdomen not distended Percussion/Palpation: abdomen soft Results & Data ([facility]) Vital Signs (Past 12 Hours) Vital Signs Temp Pulse Pulse Resp BP Pulse Ox 07/28/20 07:48 36.6 C 80 20 120/69 93 07/28/20 07:23 78 07/28/20 04:17 36.5 C 78 20 115/68 95 07/28/20 03:23 76 07/28/20 00:26 71 16 92 07/27/20 23:41 37.0 C 73 18 133/64 94 PG Care Time/CCT Total # of Minutes Spent Total Time Spent with Patient: Total time spent is greater than 50% in coordination of care (as documented) at patient's floor/unit and/or counseling patient: Coding Level of Care Code None Diagnoses Post-operative state Z98.890
[2020-07-28] MEDS: PANTOprazole 40 MG in SYRINGE 0 ML IV SCH (11:00)
--- NOTE | 2020-07-28 12:47 | XRay Report ---
KUB HISTORY: Evaluate gastrostomy tube placement. g tube study w/ contrast COMPARISON: KUB 07/23/2020. FINDINGS: Initial images demonstrate a gastrostomy tube within the mid abdomen. Dilated gas-filled lo ops of small bowel are again noted. This is similar to the prior study. Approximately 50 cc of water subtle contrast was injected through the indwelling gastrostomy tube. Contrast is seen within the sto mach. No extravasation contrast to suggest a leak. A Ibanez catheter overlies the pelvis. No renal ca lculi. No ureteral calculi. Possible right subdiaphragmatic gas. IMPRESSION: 1. Contrast injected through the indwelling gastrostomy tube which demonstrates an intraluminal locat ion within the stomach. 2. No extravasation of contrast to suggest a leak. 3. Possible subdiaphragmatic gas. Consider follow-up abdomen and pelvis CT to exclude pneumoperitoneu m. 4. Persistent dilated gas-filled loops of small bowel seen throughout the abdomen. This favors an obs truction. 5. These findings were called/faxed to the referring physician following dictation. ACT 112: Negative or not required by law. Electronically signed by: Tal Painting M.D. 07/28/2020 12:45 PM
--- NOTE | 2020-07-28 13:07 | Hospitalist Progress Note ---
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 Ware Readmission on 07/07 with unresponsiveness, abdominal pain, severe pain. X-ray on admission showed large amount of free air under diaphragm S/P Exp Laparotomy on 07/07 setting of free intraperitoneal air with replacement of gastric tube and drains Patient was intubated and , required pressor supports for hypotension Extubated on 07/14/2020 respiratory status stable /currently not requiring any supplemental O2. Per surgery operative note, gastric stroma noted to be severely inflamed, friable-possible causing dislodgment of prior G-tube Started TPN on 07/15 s/P G-tube placement with large balloon placed-to prevent dislodgment Needs to be strict n.p.o. for 2 weeks to allow healing, Continue with TPN for another week until G-tube balloon can be safely deflated as per surgery Patient is allowed to have sips of water and ice chips for comfort with G-tube drainage G tube balloon obstructing stomach pylorus , causing iatrogenic gastric outlet obstruction Will need to know when to advance diet per surgery -G tube Balloon needs to deflated prior ordering any PO diet Will need lab twice a week for the TPN ( BMP, Mg, phosp) case discussed with surgery that plan to get a contrast study/contrast Clinically stable Candidal sepsis Blood culture: Shantell glabrata [facility] ID consulted Completed 14 days treatment of caspofungin (last dose 07/23) (2) Postoperative ileus: Had multiple bowel movements, Continue on TPN Patient will need to be strict n.p.o. for at least 2 weeks to allow healing of gastric stroma as explained above KUB on 07/23 showed interval development of moderate small and large bowel dilatation. This favors an ileus however distal colonic obstruction could appear similar. KUB 07/28 showed contrast injected through the indwelling gastrostomy tube which demonstrates an intraluminal location within the stomach. No extravasation of contrast to suggest a leak. Possible subdiaphragmatic gas. Persistent dilated gas-filled loops of small bowel seen throughout the abdomen. Will discussed finding with surgery Pt is asymptomatic If no further testing or procedure require from surgery, might consider to discharge home (3) Bowel perforation: Due to dislodged G-tube, status post exploratory laparotomy, washout, replacement of G-tube with large Balloon obstructing pylorus . Completed broad-spectrum antibiotic Completed 2 weeks course of caspofungin (Last dose 07/23) KUB today showed possible subdiaphragmatic gas. Pt is asymptomatic, will address the KUB finding with the surgery team (4) Fungemia: Candidal sepsis Blood culture: On 07/07/2020: Shantell Repeat blood culture on 07/09/2020: No growth Cont Caspofungin for 14 day course. No need for ANASTASIA at this time without persistent bloodstream infection. Completed the course of caspofungin (5) Diastolic CHF, chronic: pt currently appears to volume depleted Continue TPN Continue monitor closely for fluid overload Case discussed nephrology that recommended to hold the home Bumex PO on discharge Hypernatremia : Na 145 today due to intravascular vol depletion Lasix discontinued Nephrology consulted Continue monitor BMP twice weekly (6) Bradycardia: No further episode, heart rate has been stable Appreciate input from cardiology No further procedural intervention needed (7) COPD (chronic obstructive pulmonary disease): chronic stable (8) Obesity hypoventilation syndrome: (9) Anemia: 2/2 acute blood loss and multiple comorbidities/phlebotomy Patient received 1 unit PRBC on 07/08 in setting of hemoglobin drop to 7.4 Hgb stable at 9.8 (10) Post-operative state: (11) DVT prophylaxis: SQ Heparin Disposition Will discharge home once medically stable DNR/DNI Admission and Anticipated Discharge Date Admission Date: July 07, 2020 Subjective Pt was seen and examined for follow up on g-tube placement and bowel perforation Lying in bed with no distress Pt said that he feels ok He denies any chest pain, palpitation, dizziness and SOB Review of Systems Review of Systems: All systems reviewed & are unremarkable except as noted in Subjective Physical Exam Physical Exam: General- No acute distress Head- atraumatic Eyes- PERRL, EOMI, ENT- oropharynx clear Neck- supple, no JVD Lungs- clear to auscultation Heart- regular rhythm; no murmur Abdomen- distended, surgical bandage present /G-tube on gravity drainage , bowel sounds diminished Extremities- no calf tenderness Neuro- alert, oriented x 3; PERRL, EOMI; no facial palsy; no dysarthria Skin- warm & dry Results & Data Results & Data ([facility]) Vital Signs (Past 12 Hours) Vital Signs Temp Pulse Pulse Resp BP Pulse Ox 07/28/20 11:44 36.4 C L 80 20 115/65 92 07/28/20 07:48 36.6 C 80 20 120/69 93 07/28/20 07:23 78 07/28/20 04:17 36.5 C 78 20 115/68 95 07/28/20 03:23 76
[2020-07-28] MEDS ORDERED: Custom Central Pn 2,000 ML in TPN BAG 0 ML IV SCH (16:00)
--- NOTE | 2020-07-28 16:28 | CT Scan Report ---
ABDOMEN AND PELVIS CT WITH ORAL CONTRAST CT DOSE: 1401.72 mGy.cm HISTORY: Abnormal KUB. Possible pneumoperitoneum. eval for KUB findings; give contrast via G tube TECHNIQUE: Multiaxial CT images of the abdomen and pelvis were performed following the use of oral co ntrast. A dose lowering technique was utilized adhering to the principles of ALARA. COMPARISON STUDY: Abdomen and pelvis CT 06/13/2020. FINDINGS: Bibasilar linear densities which favor atelectasis. No pneumoperitoneum. No pneumatosis. No suspicious lytic or blastic osseous lesions. Stable hypodense lesions within the right hepatic lobe with the largest measuring 2.6 cm. These favor cysts. The abdominal structures are suboptimally asses sed due to the streak artifact from the patient's overlapping arms. The unenhanced gallbladder, adren al glands, and pancreas are unremarkable. There is a 4 mm stone within the left kidney. No ureteral s tones. No hydronephrosis. No retroperitoneal lymphadenopathy. A gastrostomy tube is located within th e gastric antrum and is therefore in good position. No extravasation of contrast to suggest a leak. S mall amount of fluid adjacent to the gastric fundus/splenic dome. Dilated gas and contrast filled loo ps of large and small bowel. No transition point to suggest an obstruction. Evidence for recent sigmo id anastomosis. The rectum is fluid-filled. Mild presacral edema, unchanged. Focal area of inflammato ry change adjacent to the sigmoid anastomosis within the central mesentery best seen on image 368. Th is favors recent postoperative change rather than infectious/inflammatory process. No extraluminal ga s or fluid to suggest an anastomotic leak. There is a Ibanez catheter within the bladder. Trace fluid along the left paracolic gutter. A few colonic diverticula. No evidence for acute diverticulitis. Thi ckening at the sigmoid anastomosis and rectum could be due to a low-grade colitis or recent postopera tive change. Normal appendix. Evidence for prior left lower quadrant abdominal wall incision. Fatty a trophy of the abdominal and pelvic musculature. IMPRESSION: 1. No pneumoperitoneum. 2. Status post sigmoid anastomosis. There is focal area of inflammatory change adjacent to the anasto mosis site which favors postoperative change. No extraluminal gas or fluid to suggest a leak. 3. Mild thickening at the sigmoid anastomosis and rectum which could be reactive to the recent postop erative change. A low-grade colitis could also have a similar appearance. 4. Persistent dilatation of the large and small bowel with liquid stool within the rectum. Therefore, this may represent a postoperative ileus. No transition point to suggest an obstruction. 5. A gastrostomy tube is in good position. 6. Small amount of fluid within the left paracolic gutter and left upper quadrant. This is nonspecifi c and may also be secondary to the postoperative change. 7. Left-sided nephrolithiasis. 8. Additional findings as described above. ACT 112: Negative or not required by law. Electronically signed by: Tal Painting M.D. 07/28/2020 4:27 PM
[2020-07-29] MEDS: INSULIN ASPART 100 UNITS/ML 3 ML PEN SC SCH ×5 (00:05→21:40)
--- NOTE | 2020-07-29 08:13 | XRay Report ---
KUB HISTORY: eval contrast moving through after KUB and CT yest COMPARISON: KUB 07/28/2020. FINDINGS: No change in the distended gas-filled loops of large and small bowel seen throughout the ab domen. This favors an ileus. No transition point to suggest an obstruction. Contrast from the prior s tudy is seen within the descending colon. There is contrast within the bladder from the recent CT exa mination as well as a Ibanez catheter. No renal calculi. No ureteral calculi. No pneumoperitoneum or pneumatosis. IMPRESSION: 1. No change in the distended gas-filled loops of large and small bowel. This favors an ileus. 2. Oral contrast from the prior examination is seen within the colon. ACT 112: Negative or not required by law. Electronically signed by: Tal Painting M.D. 07/29/2020 8:12 AM
[2020-07-29] MEDS: HEPARIN SOD 5,000 UNIT/0.5 ML VIAL SQ SCH ×2 (08:29→21:34)
[2020-07-29] MEDS: LEVOTHYROXINE SODIUM 88 MCG in SYRINGE 0 ML IV SCH (10:37)
[2020-07-29] MEDS: PANTOprazole 40 MG in SYRINGE 0 ML IV SCH (10:38)
--- NOTE | 2020-07-29 12:49 | Communication Note ---
Date of Service: July 29, 2020 CT noted KUB with contrast in colon DEPUTY SHERIFF/INVESTIGATOR eval then can try diet
[2020-07-29] MEDS ORDERED: Nursing to Pharmacy Communication SCH (15:15)
[2020-07-29] MEDS ORDERED: Custom Central Pn 1,400 ML in TPN BAG 0 ML IV SCH (16:00)
--- NOTE | 2020-07-29 16:48 | Hospitalist Progress Note ---
Date of Service July 29, 2020 Assessment & Plan (1) Septic shock: Meet septic criteria on admission with tachycardia and leukocytosis severe sepsis with septic shock secondary to perforated viscus/peritonitis/fungemia, dislodged G-tube Required brief stay in ICU and mechanical ventilation First procedure, 06/26 for recurrent sigmoid volvulus with exp laparotomy, sigmoidectomy and gastrostomy by Dr. Ware Readmission on 07/07 with unresponsiveness, abdominal pain, severe pain. X-ray on admission showed large amount of free air under diaphragm S/P Exp Laparotomy on 07/07 setting of free intraperitoneal air with replacement of gastric tube and drains Patient was intubated and , required pressor supports for hypotension Extubated on 07/14/2020 respiratory status stable /currently not requiring any supplemental O2. Per surgery operative note, gastric stroma noted to be severely inflamed, friable-possible causing dislodgment of prior G-tube Started TPN on 07/15 s/P G-tube placement with large balloon placed-to prevent dislodgment Needs to be strict n.p.o. for 2 weeks to allow healing, Continue with TPN for another week until G-tube balloon can be safely deflated as per surgery Patient is allowed to have sips of water and ice chips for comfort with G-tube drainage G tube balloon obstructing stomach pylorus , causing iatrogenic gastric outlet obstruction per surgery -G tube Balloon needs to deflated prior ordering any PO diet Will need lab twice a week for the TPN ( BMP, Mg, phosp) Case discussed with surgery recommended to start on clear liquid diet Clinically stable Candidal sepsis Blood culture: Shantell glabrata [facility] ID consulted Completed 14 days treatment of caspofungin (last dose 07/23) (2) Postoperative ileus: Had multiple bowel movements, Continue on TPN Patient will need to be strict n.p.o. for at least 2 weeks to allow healing of gastric stroma as explained above KUB on 07/23 showed interval development of moderate small and large bowel dilatation. This favors an ileus however distal colonic obstruction could appear similar. KUB 07/28 showed contrast injected through the indwelling gastrostomy tube which demonstrates an intraluminal location within the stomach. No extravasation of contrast to suggest a leak. Possible subdiaphragmatic gas. Persistent dilated gas-filled loops of small bowel seen throughout the abdomen. CT abd/pelvis showed showed inflammatory change adjacent to the anastomosis site which favors postoperative change. No extraluminal gas or fluid to suggest a leak. Mild thickening at the sigmoid anastomosis and rectum which could be reactive to the recent postoperative change. A low-grade colitis could also have a similar appearance. Persistent dilatation of the large and small bowel with liquid stool within the rectum. No transition point to suggest an obstruction. Small amount of fluid within the left paracolic gutter and left upper quadrant. Case discussed with surgery that recommended speech eval and clear liquid diet Surgery recommended to continue the TPN and clear liquid diet on discharge; then follow up with surgery next week to reevaluate for possible to advance diet and discontinue TPN Will monitor for today and discharge tomorrow if tolerated clear liquid diet (3) Bowel perforation: Due to dislodged G-tube, status post exploratory laparotomy, washout, replacement of G-tube with large Balloon obstructing pylorus . Completed broad-spectrum antibiotic Completed 2 weeks course of caspofungin (Last dose 07/23) KUB today showed no change in the distended gas-filled loops of large and small bowel. This favors an ileus. Pt is asymptomatic, will address the KUB finding with the surgery team Case discussed with surgery that recommended speech evaluate and clear liquid diet Surgery recommended to continue the TPN and clear liquid diet on discharge; then follow up with surgery next week to reevaluate for possible to advance diet and discontinue TPN Will monitor for today and discharge tomorrow if tolerated clear liquid diet Pharmacy will make adjustment to the TPN and will give recommendation in am for TPN on discharge (4) Fungemia: Candidal sepsis Blood culture: On 07/07/2020: Shantell Repeat blood culture on 07/09/2020: No growth Cont Caspofungin for 14 day course. No need for ANASTASIA at this time without persistent bloodstream infection. Completed the course of caspofungin (5) Diastolic CHF, chronic: pt currently appears to volume depleted Continue TPN Continue monitor closely for fluid overload Case discussed nephrology that recommended to hold the home Bumex PO on discharge Hypernatremia : Na 145 today due to intravascular vol depletion Lasix discontinued Nephrology consulted Continue monitor BMP twice weekly (6) Bradycardia: No further episode, heart rate has been stable Appreciate input from cardiology No further procedural intervention needed (7) COPD (chronic obstructive pulmonary disease): chronic stable (8) Obesity hypoventilation syndrome: (9) Anemia: 2/2 acute blood loss and multiple comorbidities/phlebotomy Patient received 1 unit PRBC on 07/08 in setting of hemoglobin drop to 7.4 Hgb stable at 9.8 (10) Post-operative state: (11) DVT prophylaxis: SQ Heparin Disposition Possible discharge home tomorow DNR/DNI Admission and Anticipated Discharge Date Admission Date: July 07, 2020 Subjective Pt was seen and examined for follow up on g-tube placement and bowel perforation Lying in bed with no distress. Pt said that he feels ok Spoke to daughter today and provided with updates Spoke to surgery team and recommended to start on clear liquid diet He denies any chest pain, palpitation, dizziness and SOB Review of Systems Review of Systems: All systems reviewed & are unremarkable except as noted in Subjective Physical Exam Physical Exam: General- No acute distress Head- atraumatic Eyes- PERRL, EOMI, ENT- oropharynx clear Neck- supple, no JVD Lungs- No wheezing, No rales Heart- regular rhythm; no murmur Abdomen- distended, surgical bandage present /G-tube on gravity drainage, bowel sounds diminished Extremities- no calf tenderness, +edema Neuro- alert, oriented x 3; PERRL, EOMI; no facial palsy; no dysarthria Skin- warm & dry Results & Data Results & Data ([facility]) Vital Signs (Past 12 Hours) Vital Signs Temp Pulse Pulse Resp BP BP Pulse Ox 07/29/20 15:47 37.1 C 79 18 120/67 92 07/29/20 14:51 78 07/29/20 11:43 36.3 C L 79 18 116/67 92 07/29/20 07:59 36.7 C 78 16 121/70 94 07/29/20 07:35 78
[2020-07-29 23:36] LABS: Basophils # (auto) 0.01 K/uL (0-0.2); Basophils % (auto) 0.1 %; Eosinophils # (auto) 0.01 K/uL (0-0.5); Eosinophils % (auto) 0.1 %; Hematocrit (blood only) 26.4 % (42-52); Hemoglobin 8.4 g/dL (14.0-18.0); Immature Granulocytes # (auto) 0.12 K/uL (0.00-0.02); Immature Granulocytes % (auto) 0.8 %; Lymphocytes # (auto) 1.77 K/uL (1.2-3.4); Lymphocytes % (auto) 12.5 %; Mean Corpuscular Hemoglobin 29.8 pg (25-34); Mean Corpuscular Hgb Conc 31.8 g/dL (32-36); Mean Corpuscular Volume 93.6 fL (80-100); Mean Platelet Volume 9.9 fL (7.4-10.4); Monocytes # (auto) 2.11 K/uL (0.11-0.59); Monocytes % (auto) 14.9 %; Neutrophils # (auto) 10.13 K/uL (1.4-6.5); Neutrophils % (auto) 71.6 %; Platelet Count 381 K/uL (130-400); RDW Coefficient of Variation 18.8 % (11.5-14.5); RDW Standard Deviation 64.5 fL (36.4-46.3); Red Blood Count 2.82 M/uL (4.7-6.1); White Blood Count 14.15 K/uL (4.8-10.8)
[2020-07-29 23:41] LABS: Allen Test Pos (Pos); Base Excess ABG 3.6 mEq/L (-9-1.8); HCO3 ABG 29 mmol/L (19-24); Oxygen Saturation ABG 90.8 % (90-95); PCO2 ABG 46 mmHg (35-46); PO2 ABG 66 mmHg (80-95); pH ABG 7.42 (7.35-7.45)
[2020-07-30 00:04] LABS: Albumin Globulin Ratio 0.4 (0.9-2); Albumin Level 1.9 gm/dl (3.4-5.0); BUN Creatinine Ratio 57.4 (10-20); Bilirubin,Total 0.4 mg/dl (0.2-1); Calcium 8.2 mg/dl (8.5-10.1); Creatinine Clr Calc Pharmacy 127.2 ml/min; Est GFR (African American) 101.1 ml/min; Est GFR (Non-African American) 87.2 ml/min; Globulin 4.5 gm/dl (2.5-4.0); Magnesium 2.1 mg/dl (1.8-2.4); Potassium 4.3 mmol/L (3.5-5.1); Total Protein 6.4 gm/dl (6.4-8.2)
[2020-07-30] MEDS ORDERED: ACETAMINOPHEN 65 ML IV ONE (00:30)
[2020-07-30 01:13] LABS: Appearance Urine Clear (Clear); Bacteria Urine Automated Negative (Negative); Bilirubin Urine Negative (Negative); Blood Urine Negative (Negative); Color Urine Yellow; Glucose Urine UA Negative (Negative); Ketones Urine Negative (Negative); Leukocyte Esterase Urine Negative (Negative); Nitrite Urine Negative (Negative); Protein Urine 1+ (Negative); Specific Gravity Urine 1.018 (1.000-1.030); Urobilinogen Urine Negative (Negative); pH Urine 5.5 (4.5-7.5)
[2020-07-30] MEDS ORDERED: SODIUM CHLORIDE 0.45 % 1,000 ML IV STA (01:15)
[2020-07-30 01:36] LABS: RBC Urine Automated 0-4 /hpf (0-4)
[2020-07-30] MEDS ORDERED: CEFEPIME CONSULT ACTIVE PRN (01:44)
--- NOTE | 2020-07-30 01:45 | Communication Note ---
Date of Service: July 30, 2020 Patient noted to be febrile and lethargic as per daughter concerns as per RN. Elevated procalcitonin AP Sepsis Unclear source for now CS, Cefepime Patient daughter requesting updates from providers. Ms. Soniya Yoon, contact #[phone].
[2020-07-30] MEDS: CEFEPIME 2,000 MG in SYRINGE 0 ML IV SCH ×3 (03:13→18:41)
--- NOTE | 2020-07-30 07:06 | CT Scan Report ---
CT SCAN OF THE BRAIN WITHOUT IV CONTRAST CLINICAL HISTORY: Change in mental status. COMPARISON STUDY: CT of the brain dated 06/21/2018. TECHNIQUE: Unenhanced axial CT scan of the brain is performed from the vertex to the skull base. A do se lowering technique was utilized adhering to the principles of ALARA. CT DOSE: 773.97 mGy.cm FINDINGS: Brain parenchyma: There are age-related involutional changes noting mild subcortical and periventric ular microangiopathic change. There is no hemorrhage, mass effect, or evidence of acute territorial i schemia by CT criteria. Rodriguez-white matter differentiation is preserved. No extra-axial fluid collecti on is seen. Ventricles, sulci, cisterns: Prominent secondary to involutional change. Intracranial vasculature: There is atherosclerotic calcification of the cavernous carotid and vertebr al arteries. Calvarium: Unremarkable. Sinuses and mastoids: There is a 2.4 cm retention cyst in the right maxillary antrum. The remaining p aranasal sinuses are clear. There is a right mastoid effusion. The left mastoid air cells are well pn eumatized. Orbits: The bony orbits are grossly intact. There is a right ocular lens implant. IMPRESSION: There is no hemorrhage, mass effect, or evidence of acute territorial ischemia by CT crit cathryn. ACT 112: Negative or not required by law. Electronically signed by: Jose Thornton M.D. 07/30/2020 7:05 AM
--- NOTE | 2020-07-30 08:29 | XRay Report ---
SINGLE VIEW CHEST CLINICAL HISTORY: Fever. FINDINGS: 2 AP, portable, upright chest radiographs are compared to study dated 07/14/2020. The examin ation is degraded by portable technique and patient rotation. The patient's head obscures the apices. A left subclavian central venous catheter is in place. An endotracheal tube has been removed. The he art is enlarged. The pulmonary vasculature is noncongested. There is chronic elevation of the right h emidiaphragm with bibasilar airspace opacities. No large pleural effusion or pneumothorax is seen. Th e skeletal structures are osteopenic. There are healed left-sided rib fractures. IMPRESSION: 1. Cardiomegaly without radiographic evidence of congestive failure. 2. The endotracheal tube has been removed. 3. Bibasilar opacities could represent atelectasis versus a mild infectious/inflammatory pneumonitis. This is similar to previous. ACT 112: Negative or not required by law. Electronically signed by: Jose Thornton M.D. 07/30/2020 8:28 AM
[2020-07-30 08:31] LABS: BUN Creatinine Ratio 57.1 (10-20); Calcium 8.2 mg/dl (8.5-10.1); Creatinine Clr Calc Pharmacy 123.9 ml/min; Est GFR (Non-African American) 86.3 ml/min
[2020-07-30 08:33] LABS: Phosphorus 3.8 mg/dl (2.5-4.9)
[2020-07-30] MEDS: INSULIN ASPART 100 UNITS/ML 3 ML PEN SC SCH ×4 (08:51→20:43)
[2020-07-30] MEDS: HEPARIN SOD 5,000 UNIT/0.5 ML VIAL SQ SCH ×2 (08:51→20:38)
[2020-07-30] MEDS ORDERED: VANCOMYCIN HCL 2,750 MG in SODIUM CHLORIDE 0.9% 500 ML IV STA (09:38)
[2020-07-30] MEDS ORDERED: VANCOMYCIN CONSULT ACTIVE PRN (09:39)
--- NOTE | 2020-07-30 09:41 | Surgery Progress Note ---
Date of Service July 30, 2020 Assessment & Plan (1) Post-operative state: POD 24 ex lap/gastrostomy replacement -Events noted from yesterday, WBC 14 & pt febrile overnight with associated AMS, CT scan of the head showed no intracranial abnormalities. Patient has since been started on Cefepime and IV vanco. Medicine is working up patient for causes of possible infection -Abdomen is soft, and incisions appear c/d/i without evidence of infection -Yesterday KUB revealed contrast reached the colon. TOWER EXCAVATOR OPERATOR services evaluated patient and recommended okay for a clear liquid diet with remainder of diet advancement to be determined by outpatient speech services is discharged in the near future -Can keep NPO until mental status permits a trial of clear liquids. If clear liquids are started would clamp G-tube. Patient continues on TPN for now as above. pt seen. more somnolent today with leukocytosis and fever last night. appears to be infectious etiology, source unclear. doubt abdominal source. +bm's per nursing. large/loose. g-tube appears in good position and still should have approx [address] balloon[address] scan and subsequent f/u kub showed contrast in colon with no extravasation. pt only on sips of clears and no evidence of peritonitis. abd: soft. wounds look good. would morrow cx. empiric antibiotics initiated. ? line source as pt has been on TPN. will follow along closely. Admission and Anticipated Discharge Date Admission Date: July 07, 2020 Subjective Patient appears more lethargic this AM. RN reports patient has been incontinent of stool. Physical Exam Physical Exam: sleeping Gastrointestinal (Abdomen): Inspection/Auscultation: + abdominal surgical incision (no signs of infection. G tube in place) Percussion/Palpation: abdomen soft Results & Data ([facility]) Vital Signs (Past 12 Hours) Vital Signs Temp Pulse Pulse Resp BP Pulse Ox 07/30/20 07:14 82 07/30/20 07:07 36.7 C 82 20 139/75 86 L 07/30/20 04:35 36.9 C 86 20 120/70 91 07/30/20 01:44 82 07/30/20 01:43 37.6 C H 07/29/20 23:55 38.4 C H 83 20 134/76 92 07/29/20 22:00 84 20 96 PG Care Time/CCT Total # of Minutes Spent Total Time Spent with Patient: Total time spent is greater than 50% in coordination of care (as documented) at patient's floor/unit and/or counseling patient: Coding Level of Care Code None Diagnoses Post-operative state Z98.890
[2020-07-30] MEDS ORDERED: FUROSEMIDE 40 MG in SYRINGE 0 ML IV ONE (10:08)
[2020-07-30] MEDS ORDERED: FUROSEMIDE 40 MG/4 ML VIAL IV ONE (10:15)
--- NOTE | 2020-07-30 10:24 | Hospitalist Progress Note ---
Date of Service July 30, 2020 Assessment & Plan (1) Septic shock: Admitted with severe sepsis with septic shock on admission due to perforated viscus/peritonitis, fungemia/dislodged G-tube 06/26/2020 : Status post sigmoidectomy with anastomosis/G-tube placement by Dr. Starkey -was discharged home Readmission on 07/07/2020 with unresponsiveness, abdominal pain, severe pain. X-ray on admission showed large amount of free air under diaphragm-dislodged G- tube causing peritonitis 07/07/2020 :S/P Exp Laparotomy /replacement of G-tube with large inflated balloon covering the pylorus to prevent dislodgment Patient was intubated and , required pressor supports for hypotension-postop Extubated on 07/14/2020 Per surgery operative note, gastric stroma noted to be severely inflamed, friable-possible causing dislodgment of prior G-tube/large G-tube balloon placed obstructing the stomach pylorus Patient has been n.p.o. Started TPN on 07/15 Plan was continue TPN for at least 2 weeks to allow healing of gastric stroma Yesterday, 07/29/2020, G-tube was deflated, patient started on clear liquid diet pt was found to be lethargic last night long term acute care registered nurse hospitalist , started on Iv cefepime for concern for possible aspiratio n/chest x-ray showed chronically elevated right hemidiaphragm, no overt sign of vascular congestion, bibasilar atelectasis. ABG showed hypoxia with SPO2 66, normal pH, normal CO2 Patient had spikes of temperature overnight, normal lactic acid level, mild elevation of procalcitonin, This morning patient continues to remain lethargic, surgery team already evaluated the patient.-Case discussed with surgery team Agrees with strict n.p.o., continue broad-spectrum antibiotic Had recent CT abdomen pelvis/KUB, showed possible postop ileus, Ordered for strict n.p.o., NG tube put on low intermittent suction: For no gastric content seen on the wall suction Antibiotic coverage expanded, added IV vancomycin(patient has a central line) continue IV cefepime, will add IV Flagyl for additional anaerobic coverage Blood culture, urine culture drawn yesterday 07/29/2020, will follow the report Lethargy/unresponsive less/metabolic encephalopathy. Possible secondary to infection, could not verify the source yet, patient does have fever, leukocytosis, urine and blood cultures ordered Antibiotic coverage as described above CT head shows no acute change If continues to spike temperature and blood cultures are positive may need central line discontinued or changed Candidal sepsis Blood culture: On 07/07/2020: Shantell Repeat blood culture on 07/09/2020: No growth No need for ANASTASIA at this time without persistent bloodstream infection. [facility] ID consult-appreciated Completed 14 days treatment of caspofungin (last dose 07/23/20) (2) Postoperative ileus: KUB on 07/23 showed interval development of moderate small and large bowel dilatation. This favors an ileus however distal colonic obstruction could appear similar. KUB 07/28 showed contrast injected through the indwelling gastrostomy tube which demonstrates an intraluminal location within the stomach. No extravasation of contrast to suggest a leak. Possible subdiaphragmatic gas. Persistent dilated gas-filled loops of small bowel seen throughout the abdomen. CT abd/pelvis showed showed inflammatory change adjacent to the anastomosis site which favors postoperative change. No extraluminal gas or fluid to suggest a leak. Mild thickening at the sigmoid anastomosis and rectum which could be reactive to the recent postoperative change. A low-grade colitis could also have a similar appearance. Persistent dilatation of the large and small bowel with liquid stool within the rectum. No transition point to suggest an obstruction. Small amount of fluid within the left paracolic gutter and left upper quadrant. Patient was started on clear liquid diet after deflating G-tube balloon on 07/29/2020 made strict n.p.o. for reasons explained above (3) Bowel perforation: Please see above discussion (4) Fungemia: (5) Diastolic CHF, chronic: Patient noted to be volume overloaded, with positive volume of approximately 1.8 L Bibasilar Rales noted, ordered for 40 mg IV Lasix x1 (6) Bradycardia: No further episode, heart rate has been stable (7) COPD (chronic obstructive pulmonary disease): on BiPAP secondary to lethargy/hypoxia (8) Obesity hypoventilation syndrome: (9) Anemia: Possible anemia of chronic disease, hemoglobin remains borderline 8.8, transfusion criteria for hemoglobin less than 7 or any evidence of active bleeding (10) Post-operative state: (11) DVT prophylaxis: SQ Heparin Overall prognosis remains extremely poor, update given to patient's daughter Soniya Yoon over phone , Daughter is very concerned, patient had a similar presentation when G-tube was dislodged, updated, recent CT abdomen pelvis showed G-tube in correct position, Patient have other reasons to spike temperature and leukocytosis Daughter is very worried that patient may not be able to recover at this time, wants to know if she can come and visit the patient. Spoke with clinical coordinator, a new 1 person/daughter can come and be at bedside Patient is DNR/DNI Admission and Anticipated Discharge Date Admission Date: July 07, 2020 Subjective follow up visit for perforated viscus /severe sepsis with septic shock /resp joselin lure : Seen at bedside this morning, remains completely unresponsive, mild grimacing with sternal rub(completely different from her patient's baseline) CT head noncontrast done last night showed no evidence of acute stroke Patient placed on BiPAP, goal oxygen saturation 88-92% After 5 minutes on BiPAP, patient appears to be responding very slowly, opened eyes to voice, able to squeeze my hand, still remains very very lethargic Review of Systems Review of Systems: Unobtainable due to reduced consciousness Physical Exam Physical Exam: Physical exam: General: Obese, chronically ill-appearing /remains lethargic, HEENT: Anicteric sclera Heart: Regular S1-S2, Lungs: Bibasilar crackles noted Abdomen: Distended, mid abdomen surgical scar appears to be well-healing, G-tube put on suction, very diminished bowel sound Extremity: +12 bilateral lower extremity swelling with chronic toes deformity Neuro: Very lethargic, responds to pain, and voice/barely arousable Results & Data Results & Data ([facility]) Vital Signs (Past 12 Hours) Vital Signs Temp Pulse Pulse Resp BP Pulse Ox 07/30/20 10:17 75 30 H 92 07/30/20 10:03 37.2 C 76 18 121/68 98 07/30/20 08:00 82 07/30/20 07:14 82 07/30/20 07:07 36.7 C 82 20 139/75 86 L 07/30/20 04:35 36.9 C 86 20 120/70 91 07/30/20 01:44 82 07/30/20 01:43 37.6 C H 07/29/20 23:55 38.4 C H 83 20 134/76 92
--- NOTE | 2020-07-30 11:02 | Pharmacy Report ---
Pharmacy Abx Initial Consult - Date of Service July 30, 2020 - Pharmacy Dosing Scope Date of Consult: 07/30/20 Consultation requested by: Dr. Martin Pharmacy is consulted to initiate vancomycin IV dosing therapy, order appropriate labs and adjust drug dose/frequency. - Subjective The patient is a 79 year old M admitted on 07/07/20 02:29. - Objective Height: 6 ft 6 in Weight: 144.5 kg Vital Signs (Past 12hrs): Vital Signs Temp Pulse Pulse Resp BP Pulse Ox 07/30/20 10:17 75 30 H 92 07/30/20 10:03 37.2 C 76 18 121/68 98 07/30/20 08:00 82 07/30/20 07:14 82 07/30/20 07:07 36.7 C 82 20 139/75 86 L 07/30/20 04:35 36.9 C 86 20 120/70 91 07/30/20 01:44 82 07/30/20 01:43 37.6 C H 07/29/20 23:55 38.4 C H 83 20 134/76 92 Lab Results (24hrs): Laboratory Tests (24 Hours) 07/30/20 07/29/20 07/29/20 07:34 23:19 23:19 WBC Neut # (Auto) Creatinine 0.77 0.75 Est Cr Clr Drug Dosing 123.9 127.2 Procalcitonin 0.86 H 07/29/20 23:19 WBC 14.15 H Neut # (Auto) 10.13 H Creatinine Est Cr Clr Drug Dosing Procalcitonin Micro Results: 07/30/20 00:45 Urine Culture - Pending Urine,Straight Cath 07/29/20 23:19 Aerobic Blood Culture - Pending Blood Anaerobic Blood Culture - Pending 07/29/20 23:32 Aerobic Blood Culture - Pending Blood Anaerobic Blood Culture - Pending 07/09/20 11:49 Fungal Smear - Final Blood 07/09/20 12:09 Aerobic Blood Culture - Final Blood No growth in Aerobic bottle after 5 days. Anaerobic Blood Culture - Final No growth in Anaerobic bottle after 5 days. 07/09/20 11:49 Aerobic Blood Culture - Final Blood No growth in Aerobic bottle after 5 days. Anaerobic Blood Culture - Final No growth in Anaerobic bottle after 5 days. 07/08/20 11:00 Gram Stain - Final Peritoneal Fluid Aerobic and Anaerobic Culture - Final Shantell glabrata Shantell albicans/dubliniensis 07/06/20 21:26 Aerobic Blood Culture - Final Blood Shantell glabrata Anaerobic Blood Culture - Final No growth in Anaerobic bottle after 5 days. 07/07/20 02:43 Aerobic Blood Culture - Final Blood Shantell glabrata Anaerobic Blood Culture - Final Shantell glabrata 07/07/20 05:39 Urine Culture - Final Urine,Clean Catch Escherichia coli - Risk Factors for Resistance * Current hospitalization > 5 days * Antimicrobial use within the last 90 days - Assessment & Plan Assessment 79 year old M receiving vancomycin/cefepime IV for empiric coverage of fever in the setting of a central line. Patient currently on TPN, spiked a fever last evening, and with elevated WBC, PCT today. 07/29 blood cultures pending, urine culture pending. Renal function stable. Plan Vancomycin IV * Loading dose: 2750 mg X 1(~ 19mg/kg) * Maintenance dose: 1500mg IV (~10 mg/kg) every 12 hours * Will obtain a trough level at steady state if vancomycin continued beyond 48hr, or sooner if renal function indicates. Pharmacy will continue to follow and will adjust dose/frequency as necessary. Thank you.
--- NOTE | 2020-07-30 11:16 | Communication Note ---
Date of Service: July 30, 2020 Possible central line infection With fever spike, leukocytosis Concern for central line infection is a possibility. Patient has been getting TPN through current central line day 14# Blood culture drawn 07/29/2020 report still pending Discussed with pharmacy, hold TPN for now: till Blood culture result is available. If blood cultures negative : central line infection less likely: TPN will be resumed if Blood cultures is positive :central line will be removed. Ioana Martin MD
[2020-07-30] MEDS: PANTOprazole 40 MG in SYRINGE 0 ML IV SCH (11:31)
[2020-07-30] MEDS: metroNIDAZOLE 500 MG/100 ML BAG IV SCH ×2 (13:23→20:38)
[2020-07-30] MEDS: VANCOMYCIN HCL 1,500 MG in SODIUM CHLORIDE 0.9% 500 ML IV SCH (21:34)
[2020-07-30] MEDS ORDERED: FUROSEMIDE 20 MG in SYRINGE 0 ML IV ONE (23:33)
[2020-07-31] MEDS: CEFEPIME 2,000 MG in SYRINGE 0 ML IV SCH ×3 (01:55→17:19)
[2020-07-31] MEDS: metroNIDAZOLE 500 MG/100 ML BAG IV SCH ×2 (04:45→13:33)
[2020-07-31 06:58] LABS: Basophils # (auto) 0.02 K/uL (0-0.2); Basophils % (auto) 0.2 %; Eosinophils # (auto) 0.01 K/uL (0-0.5); Eosinophils % (auto) 0.1 %; Hematocrit (blood only) 24.8 % (42-52); Hemoglobin 7.8 g/dL (14.0-18.0); Immature Granulocytes # (auto) 0.08 K/uL (0.00-0.02); Immature Granulocytes % (auto) 0.7 %; Lymphocytes # (auto) 1.25 K/uL (1.2-3.4); Lymphocytes % (auto) 11.2 %; Mean Corpuscular Hemoglobin 29.7 pg (25-34); Mean Corpuscular Hgb Conc 31.5 g/dL (32-36); Mean Corpuscular Volume 94.3 fL (80-100); Mean Platelet Volume 9.1 fL (7.4-10.4); Monocytes # (auto) 1.33 K/uL (0.11-0.59); Monocytes % (auto) 11.9 %; Neutrophils # (auto) 8.47 K/uL (1.4-6.5); Neutrophils % (auto) 75.9 %; Platelet Count 313 K/uL (130-400); RDW Coefficient of Variation 18.7 % (11.5-14.5); RDW Standard Deviation 64.8 fL (36.4-46.3); Red Blood Count 2.63 M/uL (4.7-6.1); White Blood Count 11.16 K/uL (4.8-10.8)
[2020-07-31 07:20] LABS: Hypochromasia Present
--- NOTE | 2020-07-31 07:24 | Surgery Progress Note ---
Date of Service July 31, 2020 Assessment & Plan (1) Post-operative state: suspect line sepsis wbc decreased to 11,000 today. will keep NGT on suction for now. may be able to use for feeds in near future. Admission and Anticipated Discharge Date Admission Date: July 07, 2020 Subjective pt awake/alert. answering appropriately. desperately wants coke to drink Physical Exam Physical Exam: alert. nad. no pain abd: soft. nt. incisions look good. G-tube putting out bile/acid Results & Data ([facility]) Vital Signs (Past 12 Hours) Vital Signs Temp Pulse Pulse Resp BP Pulse Ox 07/31/20 07:11 36.5 C 104/63 92 07/31/20 03:20 36.6 C 78 22 117/66 93 07/31/20 03:07 74 24 94 07/30/20 23:59 75 07/30/20 23:49 36.3 C L 73 20 113/64 97 07/30/20 22:09 74 28 H 92 07/30/20 20:00 36.4 C L 74 22 119/69 92 PG Care Time/CCT Total # of Minutes Spent Total Time Spent with Patient: Total time spent is greater than 50% in coordination of care (as documented) at patient's floor/unit and/or counseling patient: Coding Level of Care Code None Diagnoses Post-operative state Z98.890
[2020-07-31 07:34] LABS: Albumin Globulin Ratio 0.4 (0.9-2); Albumin Level 1.6 gm/dl (3.4-5.0); BUN Creatinine Ratio 48.8 (10-20); Bilirubin,Total 0.5 mg/dl (0.2-1); Calcium 8.6 mg/dl (8.5-10.1); Creatinine Clr Calc Pharmacy 115.3 ml/min; Est GFR (African American) 98.5 ml/min; Globulin 4.4 gm/dl (2.5-4.0); Potassium 2.7 mmol/L (3.5-5.1)
[2020-07-31] MEDS: INSULIN ASPART 100 UNITS/ML 3 ML PEN SC SCH ×5 (08:41→23:54)
[2020-07-31] MEDS: HEPARIN SOD 5,000 UNIT/0.5 ML VIAL SQ SCH ×2 (08:51→22:10)
[2020-07-31] MEDS: POTASSIUM CHLORIDE / WTR 10 MEQ/100 ML PLCT IV SCH ×4 (08:51→14:43)
[2020-07-31] MEDS: VANCOMYCIN HCL 1,500 MG in SODIUM CHLORIDE 0.9% 500 ML IV SCH ×2 (10:39→22:10)
[2020-07-31] MEDS: PANTOprazole 40 MG in SYRINGE 0 ML IV SCH (11:39)
--- NOTE | 2020-07-31 14:30 | Hospitalist Progress Note ---
Date of Service July 31, 2020 Assessment & Plan (1) Septic shock: Admitted with severe sepsis with septic shock on admission due to perforated viscus/peritonitis, fungemia/dislodged G-tube 06/26/2020 : Status post sigmoidectomy with anastomosis/G-tube placement by Dr. Ware -was discharged home Readmission on 07/07/2020 with unresponsiveness, abdominal pain, severe pain. X-ray on admission showed large amount of free air under diaphragm-dislodged G- tube causing peritonitis 07/07/2020 :S/P Exp Laparotomy /replacement of G-tube with large inflated balloon covering the pylorus to prevent dislodgment Patient was intubated and , required pressor supports for hypotension-postop Extubated on 07/14/2020 Per surgery operative note, gastric stroma noted to be severely inflamed, friable-possible causing dislodgment of prior G-tube/large G-tube balloon placed obstructing the stomach pylorus Patient has been n.p.o. Started TPN on 07/1507/29/2020, G-tube was deflated, patient started on clear liquid diet Patient became lethargic, [employer] consultant hospitalist , started on Iv cefepime for concern for possible aspiration/chest x-ray showed chronically elevated right hemidiaphragm, no overt sign of vascular congestion, bibasilar atelectasis. ABG showed hypoxia with SPO2 66, normal pH, normal CO2 Patient had spikes of temperature overnight, normal lactic acid level, mild elevation of procalcitonin, Concern for possible line infection/patient had central line for TPN for last 14 days Order to DC central line, patient started on IV cefepime and vancomycin Blood culture so far shows no growth, catheter tip sent for culture report pending Patient's clinical improvement, improve mental status White count improved from 1411, with resolution of hypoxemia, will continue IV antibiotics till all culture available Lethargy/unresponsive less/metabolic encephalopathy. Possible secondary to infection, possible secondary to central line infection? Antibiotic coverage as described above CT head shows no acute change Central line discontinued, patient will not be on TPN To start on tube feeding via G-tube when appropriate by surgery Plan of care updated to patient's daughter in agreement to discontinue long-term TPN Candidal sepsis Resolved: Blood culture: On 07/07/2020: Shantell Repeat blood culture on 07/09/2020: No growth No need for ANASTASIA at this time without persistent bloodstream infection. [facility] ID consult-appreciated Completed 14 days treatment of caspofungin (last dose 07/23/20) Started on broad-spectrum IV antibiotic for possible line infection/central line discontinued (2) Postoperative ileus: KUB on 07/23 showed interval development of moderate small and large bowel dilatation. This favors an ileus however distal colonic obstruction could appear similar. KUB 07/28 showed contrast injected through the indwelling gastrostomy tube which demonstrates an intraluminal location within the stomach. No extravasation of contrast to suggest a leak. Possible subdiaphragmatic gas. Persistent dilated gas-filled loops of small bowel seen throughout the abdomen. CT abd/pelvis showed showed inflammatory change adjacent to the anastomosis site which favors postoperative change. No extraluminal gas or fluid to suggest a leak. Mild thickening at the sigmoid anastomosis and rectum which could be reactive to the recent postoperative change. A low-grade colitis could also have a similar appearance. Persistent dilatation of the large and small bowel with liquid stool within the rectum. No transition point to suggest an obstruction. Small amount of fluid within the left paracolic gutter and left upper quadrant. Patient is currently remains n.p.o. with G-tube suction Per surgery wants patient clinically improves plan to deflate the G-tube balloon, and allow clear liquid and later possible start on tube feeding as tolerated (3) Bowel perforation: Please see above discussion (4) Fungemia: Resolved Candidal sepsis Blood culture: On 07/07/2020: Shantell Repeat blood culture on 07/09/2020: No growth Cont Caspofungin for 14 day course. No need for ANASTASIA at this time without persistent bloodstream infection. Completed the course of caspofungin (5) Diastolic CHF, chronic: Patient noted to be volume overloaded, with positive volume of approximately 1.8 L Patient given 40 mg IV Lasix yesterday Hypernatremia: Possible secondary to dehydration patient received Lasix yesterday, Can increase risk for pulmonary congestion will avoid giving any IV fluids, Plan to increase free water flush once patient is started on tube feeding (6) Bradycardia: No further episode, heart rate has been stable (7) COPD (chronic obstructive pulmonary disease): on BiPAP secondary to lethargy/hypoxia (8) Obesity hypoventilation syndrome: (9) Anemia: Possible anemia of chronic disease, hb Globin 7.8 transfusion criteria for hemoglobin less than 7 or any evidence of active bleeding (10) Post-operative state: (11) DVT prophylaxis: SQ Heparin Patient is DNR/DNI Disposition, patient is prolonged hospital stay with multiple complications. Once clinically stable plan to return home with daughter /will be on tube feeding via G-tube for nutrition Admission and Anticipated Discharge Date Admission Date: July 07, 2020 Subjective Awake and alert today, does not require any oxygen. Continue abdominal pain, no nausea or vomiting Wants to drink beverage, seen by Dr. Damon surgery earlier, patient is allowed to drinks, G-tube remains on suction. No temperature spike overnight, leukocytosis continues to improve, mental status improved to approximate baseline Daughter present at bedside updated Review of Systems Review of Systems: All systems reviewed & are unremarkable except as noted in Subjective Physical Exam Physical Exam: Physical exam: General: Weak and alert today, able to participate in conversation HEENT: Anicteric sclera Heart: Regular S1-S2, Lungs: Bibasilar crackles noted Abdomen: Distended, mid abdomen surgical scar appears to be well-healing, G-tube put on suction, diminished bowel sound Extremity: +12 bilateral lower extremity swelling with chronic toes deformity Neuro: Awake and alert, mental status back to baseline Results & Data Results & Data ([facility]) Vital Signs (Past 12 Hours) Vital Signs Temp Pulse Pulse Pulse Resp BP Pulse Ox 07/31/20 11:48 36.7 C 66 20 109/68 95 07/31/20 10:30 36.7 C 77 20 106/67 94 07/31/20 10:15 36.7 C 79 20 110/68 94 07/31/20 10:00 36.7 C 75 20 101/66 96 07/31/20 09:45 36.7 C 73 20 111/68 94 07/31/20 07:11 36.5 C 104/63 92 07/31/20 06:20 75 07/31/20 03:20 36.6 C 78 22 117/66 93 07/31/20 03:07 74 24 94
[2020-07-31] MEDS ORDERED: Nursing to Pharmacy Communication SCH (21:15)
[2020-08-01] MEDS: CEFEPIME 2,000 MG in SYRINGE 0 ML IV SCH ×3 (02:29→18:33)
[2020-08-01] MEDS: INSULIN ASPART 100 UNITS/ML 3 ML PEN SC SCH ×3 (06:07→18:15)
--- NOTE | 2020-08-01 08:20 | Surgery Progress Note ---
Date of Service August 01, 2020 Assessment & Plan (1) Postoperative ileus: As per his daughter the plan is to try oral intake the balloon of been partially deflated No acute surgical problem at this time we will continue leaving the gastrostomy tube in place once the balloon is been deflated partially and tolerated with minimal drainage a probably can be clamped and oral intake could be restarted if Admission and Anticipated Discharge Date Admission Date: July 07, 2020 Subjective No complaints no nausea no abdominal discomfort no respiratory issues Physical Exam Physical Exam: Alert coherent daughter at bedside Off supplemental oxygen Oropharyngeal moist G-tube without any drainage at the insertion site minimal drainage in the canister Abdomen is completely benign left lower quadrant incision and midline incision are healed well Ibanez catheter in place Results & Data ([facility]) Vital Signs (Past 12 Hours) Vital Signs Temp Pulse Pulse Resp BP Pulse Ox 08/01/20 07:30 36.5 C 69 18 117/67 93 08/01/20 03:12 36.6 C 103 H 22 119/63 98 07/31/20 23:59 72 07/31/20 23:28 36.8 C 70 18 108/58 L 91 07/31/20 23:05 68 20 94 PG Care Time/CCT Total # of Minutes Spent Total Time Spent with Patient: Total time spent is greater than 50% in coordination of care (as documented) at patient's floor/unit and/or counseling patient: Coding Level of Care Code None Diagnoses Postoperative ileus K91.89; K56.7
[2020-08-01] MEDS: HEPARIN SOD 5,000 UNIT/0.5 ML VIAL SQ SCH ×2 (09:04→20:45)
[2020-08-01] MEDS: LEVOTHYROXINE SODIUM 88 MCG in SYRINGE 0 ML IV SCH (09:09)
[2020-08-01] MEDS ORDERED: VANCOMYCIN TROUGH ONE (09:30)
[2020-08-01 09:54] LABS: Basophils # (auto) 0.03 K/uL (0-0.2); Basophils % (auto) 0.3 %; Eosinophils # (auto) 0.04 K/uL (0-0.5); Eosinophils % (auto) 0.4 %; Hematocrit (blood only) 25.7 % (42-52); Hemoglobin 8.2 g/dL (14.0-18.0); Immature Granulocytes # (auto) 0.09 K/uL (0.00-0.02); Immature Granulocytes % (auto) 0.9 %; Lymphocytes # (auto) 1.21 K/uL (1.2-3.4); Lymphocytes % (auto) 11.7 %; Mean Corpuscular Hemoglobin 29.6 pg (25-34); Mean Corpuscular Hgb Conc 31.9 g/dL (32-36); Mean Corpuscular Volume 92.8 fL (80-100); Mean Platelet Volume 9.3 fL (7.4-10.4); Monocytes % (auto) 11.6 %; Neutrophils # (auto) 7.76 K/uL (1.4-6.5); Neutrophils % (auto) 75.1 %; Platelet Count 327 K/uL (130-400); RDW Coefficient of Variation 18.5 % (11.5-14.5); RDW Standard Deviation 61.8 fL (36.4-46.3); Red Blood Count 2.77 M/uL (4.7-6.1); White Blood Count 10.33 K/uL (4.8-10.8)
[2020-08-01 10:15] LABS: Albumin Level 1.6 gm/dl (3.4-5.0); BUN Creatinine Ratio 37.1 (10-20); Calcium 8.3 mg/dl (8.5-10.1); Creatinine Clr Calc Pharmacy 114.2 ml/min; Est GFR (African American) 98.5 ml/min; Potassium 2.9 mmol/L (3.5-5.1)
[2020-08-01 10:16] LABS: Albumin Globulin Ratio 0.3 (0.9-2); Bilirubin,Total 0.4 mg/dl (0.2-1); Globulin 4.7 gm/dl (2.5-4.0); Total Protein 6.3 gm/dl (6.4-8.2)
--- NOTE | 2020-08-01 10:32 | Pharmacy Report ---
Pharmacy Abx Dose Short Note - Date of Service August 01, 2020 - Assessment & Plan Assessment 79 year old M receiving VANCOMYCIN + CEFEPIME for treatment of BACTEREMIA/Central line infection Day # 3 of antimicrobial therapy. Renal function stable Plan Vancomycin * Trough level of 31 mcg/mL is supratherapeutic * Vancomycin accumulation in the setting of obesity. * HOLD Vancomycin this morning. Will repeat a random level 12hrs after trough level this morning (this will be ~24hrs after last dose given). Random level at 2130 this evening * Will re-dose Vancomycin when random level is in goal trough range of 15-20 mcg/ml Cefepime * No changes needed. CrCl still > 60 ml/min. Continue 2gm IV Q8hrs Pharmacy will continue to follow and will adjust dose/frequency as necessary. Thank you.
[2020-08-01] MEDS: VANCOMYCIN HCL 1,500 MG in SODIUM CHLORIDE 0.9% 500 ML IV SCH (10:51)
[2020-08-01] MEDS: PANTOprazole 40 MG in SYRINGE 0 ML IV SCH (10:51)
[2020-08-01] MEDS: TUBE FEEDING WATER FLUSH GT SCH ×3 (14:53→21:21)
[2020-08-01] MEDS: PEPTAMEN INTENSE VHP 1.0 CAL 1,000 ML BAG GT SCH (14:53)
--- NOTE | 2020-08-01 16:21 | Hospitalist Progress Note ---
Date of Service August 01, 2020 Assessment & Plan (1) Septic shock: Resolved, stable vitals Admitted with severe sepsis with septic shock on admission due to perforated viscus/peritonitis, fungemia/dislodged G-tube 06/26/2020 : Status post sigmoidectomy with anastomosis/G-tube placement by Dr. Ware -was discharged home Readmission on 07/07/2020 with unresponsiveness, abdominal pain, severe pain. X-ray on admission showed large amount of free air under diaphragm-dislodged G- tube causing peritonitis 07/07/2020 :S/P Exp Laparotomy /replacement of G-tube with large inflated balloon covering the pylorus to prevent dislodgment Patient was intubated and , required pressor supports for hypotension-postop Extubated on 07/14/2020 Per surgery operative note, gastric stroma noted to be severely inflamed, friable-possible causing dislodgment of prior G-tube/large G-tube balloon placed obstructing the stomach pylorus Patient has been n.p.o. Started TPN on 07/1507/29/2020, G-tube was deflated, patient started on clear liquid diet Patient developed fever/hypoxia. G-tube was reinflated, central line discontinued, Started on very low rate tube feeding via G-tube today so far has been tolerating well Lethargy/unresponsive less/metabolic encephalopathy. Symptom has resolved awake and alert oriented mental status is baseline Possible secondary to infection, possible secondary to central line infection? Antibiotic coverage as described above CT head shows no acute change Central line discontinued, patient will not be on TPN Tarted on low-dose tube feed Candidal sepsis Resolved: Blood culture: On 07/07/2020: Shantell Repeat blood culture on 07/09/2020: No growth No need for ANASTASIA at this time without persistent bloodstream infection. [facility] consult-appreciated Completed 14 days treatment of caspofungin (last dose 07/23/20) Central line discontinued (2) Postoperative ileus: tube feeding feeding via G-tube started so far has been tolerating well: Surgery following closely Patient still have inflated balloon in stomach, tube feeding will be continued for 10 mL/h only no in treatment of rate, check gastric residual every 4 hours, (3) Bowel perforation: Please see above discussion (4) Fungemia: Resolved Candidal sepsis Blood culture: On 07/07/2020: Shantell Repeat blood culture on 07/09/2020: No growth Cont Caspofungin for 14 day course. No need for ANASTASIA at this time without persistent bloodstream infection. Completed the course of caspofungin (5) Diastolic CHF, chronic: Volume status stable (6) Bradycardia: No further episode, heart rate has been stable (7) COPD (chronic obstructive pulmonary disease): on BiPAP secondary to lethargy/hypoxia (8) Obesity hypoventilation syndrome: (9) Anemia: Possible anemia of chronic disease, hb Globin 7.8 transfusion criteria for hemoglobin less than 7 or any evidence of active bleeding (10) Post-operative state: (11) DVT prophylaxis: SQ Heparin Patient is DNR/DNI Disposition, prolonged hospital stay with multiple complications. Once clinically stable plan to return home with daughter /will be on tube feeding via G-tube for nutrition Admission and Anticipated Discharge Date Admission Date: July 07, 2020 Subjective Awake and alert, comfortable Started on tube feeding with very low-dose 10 mL/h, So far patient has been tolerating well, No complaints no nausea no abdominal discomfort no respiratory issues Review of Systems Review of Systems: All systems reviewed & are unremarkable except as noted in Subjective Physical Exam Physical Exam: Physical exam: General: Weak and alert today, able to participate in conversation HEENT: Anicteric sclera Heart: Regular S1-S2, Lungs: Bibasilar crackles noted Abdomen: Distended, mid abdomen surgical scar appears to be well-healing, receiving tube feeding via G-tube Extremity: +12 bilateral lower extremity swelling with chronic toes deformity Neuro: Awake and alert, mental status back to baseline Results & Data Results & Data ([facility]) Vital Signs (Past 12 Hours) Vital Signs Temp Pulse Pulse Pulse Resp BP Pulse Ox 08/01/20 15:03 68 20 122/68 95 08/01/20 11:31 68 20 115/65 93 08/01/20 08:00 75 08/01/20 07:30 36.5 C 69 18 117/67 93
[2020-08-02] MEDS: INSULIN ASPART 100 UNITS/ML 3 ML PEN SC SCH ×4 (00:26→18:37)
[2020-08-02] MEDS: TUBE FEEDING WATER FLUSH GT SCH ×6 (00:27→20:45)
[2020-08-02] MEDS: CEFEPIME 2,000 MG in SYRINGE 0 ML IV SCH ×3 (02:17→18:00)
--- NOTE | 2020-08-02 02:17 | Pharmacy Report ---
Pharmacy Abx Dose Short Note - Date of Service August 02, 2020 - Assessment & Plan Assessment 79 year old M receiving VANCOMYCIN + CEFEPIME for treatment of BACTEREMIA/Central line infection Day # 3 of antimicrobial therapy. Plan Vancomycin * Random vanco level this evening still elevated at ~27 mcg/ml - slowly trending down from AM check. Plan to continue to hold further doses of vancomycin at this time. * Estimated kinetics: ke ~0.0127, t1/2~54 hrs * Plan to order another random level at noon on 08/02 when estimated level closer to 20 mcg/ml. Plan to redose when level <20 mcg/ml Pharmacy will continue to follow and will adjust dose/frequency as necessary. Thank you.
--- NOTE | 2020-08-02 06:20 | Surgery Progress Note ---
Date of Service August 02, 2020 Assessment & Plan (1) Perforated viscus: Patient is status post repair of gastrostomy on 07/06/2020 -Continue tube feeds at present rate as patient is tolerating them Hold on advancing oral intake until G-tube balloon can be deflated further Patient reportedly had ventricular tachycardia last evening. The hospitalist has been notified and they are currently replacing the patient's magnesium. Patient appears to be in sinus rhythm at the present time. Continue to monitor for recurrence of this arrhythmia. Patient is receiving subcutaneous heparin for DVT prevention Dr. Moses-patient is awake and alert he wishes to have some food. He does seem to be tolerating his tube feeding overnight His tube feed residuals appear to be very stable. We will not change the current plan and will not begin p.o. except for some sips of liquids for now. Significantly deconditioned and weak. Apparently had some ectopy last evening felt secondary to electrolytes Monitoring closely. Admission and Anticipated Discharge Date Admission Date: July 07, 2020 Subjective Patient visited at bedside. He is resting comfortably in bed. He denies any chest pain or shortness of breath. Patient denies any nausea or vomiting. He denies any worsening abdominal pain I discussed with the shift boss RN. She notes that the patient is tolerating tube feeds without any residuals. She notes that he has had a few small bowel movements overnight. In addition she reported a episode of ventricular tachycardia. The hospitalist was notified of this issue and it is currently being addressed. No other concerns noted Physical Exam Constitutional: no acute distress Respiratory: normal respiratory effort; no respiratory distress and no labored breathing Cardiovascular: Rate/Rhythm: regular rate and regular rhythm Gastrointestinal (Abdomen): Abdomen is rotund and soft. Bowel sounds are present. There is no rebound tenderness or guarding. There is no pain with palpation Results & Data ([facility]) Vital Signs (Past 12 Hours) Vital Signs Temp Pulse Pulse Resp BP Pulse Ox 08/02/20 05:11 67 24 126/67 93 08/02/20 03:49 36.4 C L 70 22 111/65 94 08/02/20 03:19 74 10 L 92 08/02/20 00:08 36.7 C 71 24 123/69 96 08/01/20 23:05 81 22 94 08/01/20 22:20 70 08/01/20 20:16 36.5 C 70 18 130/75 92 PG Care Time/CCT Total # of Minutes Spent Total Time Spent with Patient: Total time spent is greater than 50% in coordination of care (as documented) at patient's floor/unit and/or counseling patient: Coding Level of Care Code None Diagnoses Perforated viscus R19.8
[2020-08-02 06:22] LABS: Basophils # (auto) 0.04 K/uL (0-0.2); Basophils % (auto) 0.4 %; Eosinophils # (auto) 0.03 K/uL (0-0.5); Eosinophils % (auto) 0.3 %; Hematocrit (blood only) 26.8 % (42-52); Hemoglobin 8.5 g/dL (14.0-18.0); Immature Granulocytes # (auto) 0.12 K/uL (0.00-0.02); Immature Granulocytes % (auto) 1.1 %; Lymphocytes % (auto) 12.6 %; Mean Corpuscular Hemoglobin 29.8 pg (25-34); Mean Corpuscular Hgb Conc 31.7 g/dL (32-36); Mean Platelet Volume 9.3 fL (7.4-10.4); Monocytes # (auto) 1.21 K/uL (0.11-0.59); Monocytes % (auto) 10.9 %; Neutrophils # (auto) 8.33 K/uL (1.4-6.5); Neutrophils % (auto) 74.7 %; Platelet Count 357 K/uL (130-400); RDW Coefficient of Variation 18.4 % (11.5-14.5); RDW Standard Deviation 63.5 fL (36.4-46.3); Red Blood Count 2.85 M/uL (4.7-6.1); White Blood Count 11.13 K/uL (4.8-10.8)
[2020-08-02 06:58] LABS: Albumin Level 1.6 gm/dl (3.4-5.0); BUN Creatinine Ratio 34.6 (10-20); Calcium 8.5 mg/dl (8.5-10.1); Creatinine Clr Calc Pharmacy 120.2 ml/min; Est GFR (African American) 100.6 ml/min; Est GFR (Non-African American) 86.8 ml/min; Magnesium 2.3 mg/dl (1.8-2.4); Potassium 2.7 mmol/L (3.5-5.1)
[2020-08-02 07:01] LABS: Albumin Globulin Ratio 0.3 (0.9-2); Bilirubin,Total 0.5 mg/dl (0.2-1); Globulin 4.9 gm/dl (2.5-4.0); Total Protein 6.5 gm/dl (6.4-8.2)
[2020-08-02] MEDS: HEPARIN SOD 5,000 UNIT/0.5 ML VIAL SQ SCH ×2 (09:22→20:45)
[2020-08-02] MEDS: PANTOprazole 40 MG in SYRINGE 0 ML IV SCH (10:05)
--- NOTE | 2020-08-02 15:22 | Pharmacy Report ---
Pharmacy Abx Dose Short Note - Date of Service August 02, 2020 - Assessment & Plan Assessment 79 year old M receiving Vancomycin & Cefepime for treatment of Bacteremia/central line infection. Day # 4 of antimicrobial therapy. Plan Laboratory Tests 08/02/20 12:01 Random Vancomycin 22.9 Vancomycin: * Random vanco level this evening still elevated at ~23 mcg/ml - slowly trending down. Plan to continue to hold further doses of vancomycin at this time. * Plan to order another random level 08/03 with am labs. Plan to redose when level < 20 mcg/mL Pharmacy will continue to follow and will adjust dose/frequency as necessary. Thank you.
[2020-08-02] MEDS: PEPTAMEN INTENSE VHP 1.0 CAL 1,000 ML BAG GT SCH (15:45)
[2020-08-02] MEDS: POTASSIUM CHLORIDE / WTR 10 MEQ/100 ML PLCT IV SCH ×5 (16:45→21:37)
--- NOTE | 2020-08-02 17:00 | Hospitalist Progress Note ---
Date of Service August 02, 2020 Assessment & Plan (1) Septic shock: Resolved, stable vitals Admitted with severe sepsis with septic shock on admission due to perforated viscus/peritonitis, fungemia/dislodged G-tube 06/26/2020 : Status post sigmoidectomy with anastomosis/G-tube placement by Dr. Ware -was discharged home Readmission on 07/07/2020 with unresponsiveness, abdominal pain, severe pain. X-ray on admission showed large amount of free air under diaphragm-dislodged G- tube causing peritonitis 07/07/2020 :S/P Exp Laparotomy /replacement of G-tube with large inflated balloon covering the pylorus to prevent dislodgment Patient was intubated and , required pressor supports for hypotension-postop Extubated on 07/14/2020 Per surgery operative note, gastric stroma noted to be severely inflamed, friable-possible causing dislodgment of prior G-tube/large G-tube balloon placed obstructing the stomach pylorus Patient has been n.p.o. Started TPN on 07/15- D/nehmeias as Centeral line taken out for infection concern on TF low rate via G tube , has been tolerating Lethargy/unresponsive less/metabolic encephalopathy. resolved , mental status at baseline Candidal sepsis Resolved: Blood culture: On 07/07/2020: Shantell Repeat blood culture on 07/09/2020: No growth No need for ANASTASIA at this time without persistent bloodstream infection. [facility] ID consult-appreciated Completed 14 days treatment of caspofungin (last dose 07/23/20) Central line discontinued (2) Postoperative ileus: resolved tube feeding feeding via G-tube started so far has been tolerating well: Surgery following closely Patient still have inflated balloon in stomach, tube feeding will be continued for 10 mL/h only no in treatment of rate, check gastric residual every 4 hours, (3) Bowel perforation: Please see above discussion (4) Fungemia: Resolved Candidal sepsis Blood culture: On 07/07/2020: Shantell Repeat blood culture on 07/09/2020: No growth Cont Caspofungin for 14 day course. No need for ANASTASIA at this time without persistent bloodstream infection. Completed the course of caspofungin (5) Diastolic CHF, chronic: Volume status stable (6) Bradycardia: No further episode, heart rate has been stable (7) COPD (chronic obstructive pulmonary disease): on BiPAP secondary to lethargy/hypoxia (8) Obesity hypoventilation syndrome: (9) Anemia: Possible anemia of chronic disease, hb Globin 7.8 transfusion criteria for hemoglobin less than 7 or any evidence of active bleeding (10) Post-operative state: (11) DVT prophylaxis: SQ Heparin Patient is DNR/DNI Disposition, prolonged hospital stay with multiple complications. Once clinically stable plan to return home with daughter /will be on tube feeding via G-tube for nutrition Admission and Anticipated Discharge Date Admission Date: July 07, 2020 Subjective Patient visited at bedside. He is resting comfortably in bed. has been tolera ting TF with minimum residue no complain of abdominal pain , no nausea or vomitinig Physical Exam Physical Exam: Physical exam: General: Weak and alert today, able to participate in conversation HEENT: Anicteric sclera Heart: Regular S1-S2, Lungs: Bibasilar crackles noted Abdomen: Distended, mid abdomen surgical scar appears to be well-healing, receiving tube feeding via G-tube Extremity: +12 bilateral lower extremity swelling with chronic toes deformity Neuro: Awake and alert, mental status back to baseline Results & Data Results & Data ([facility]) Vital Signs (Past 12 Hours) Vital Signs Temp Pulse Pulse Pulse Resp BP Pulse Ox 08/02/20 11:04 36.6 C 73 20 112/67 89 L 08/02/20 08:00 71 08/02/20 07:50 36.7 C 68 18 115/69 93 08/02/20 05:11 67 24 126/67 93
[2020-08-02] MEDS ORDERED: FUROSEMIDE 40 MG in SYRINGE 0 ML IV ONE (17:45)
[2020-08-02] MEDS ORDERED: FUROSEMIDE 40 MG/4 ML VIAL IV ONE (17:57)
[2020-08-03] MEDS: INSULIN ASPART 100 UNITS/ML 3 ML PEN SC SCH ×4 (00:34→18:14)
[2020-08-03] MEDS: TUBE FEEDING WATER FLUSH GT SCH ×6 (01:35→21:02)
[2020-08-03] MEDS: CEFEPIME 2,000 MG in SYRINGE 0 ML IV SCH (02:00)
--- NOTE | 2020-08-03 05:49 | Surgery Progress Note ---
Date of Service August 03, 2020 Assessment & Plan (1) Perforated viscus: Patient is status post repair of gastrostomy on 07/06/2020 Patient continues to tolerate tube feeds which we will continue at the current rate We will continue to hold on allowing oral intake until G-tube balloon can be de flated further Patient is receiving subcutaneous heparin for DVT prevention Admission and Anticipated Discharge Date Admission Date: July 07, 2020 Supervising Physician Co-Signing Physician Notes Dr. Gutierrez seems to be very stable and tolerating current tube feeds-very awake and alert today He is also tolerating some sips of clear liquids. We will continue with the same plan today and possibly consider increasing his tube feeds tomorrow. We may even consider some full liquids but not today. Subjective Patient is currently in bed and he voices no complaints. He specifically says his breathing feels comfortable. He also denies any abdominal pain. He denies any nausea or vomiting. Discussed with shift supervisor RN. No acute surgical issues have been identified. She also notes there was no recurrent episodes of ventricular tachycardia that were noted the previous evening. Physical Exam Respiratory: normal respiratory effort; no respiratory distress and no labored breathing Slight decrease of breath sounds noted at bases Gastrointestinal (Abdomen): G-tube is in place. Patient's abdomen is rotund but soft. Bowel sounds are present. There is no pain with palpation. There is no rebound tenderness or guarding. Results & Data ([facility]) Vital Signs (Past 12 Hours) Vital Signs Temp Pulse Pulse Resp BP Pulse Ox 08/03/20 03:22 36.6 C 70 18 114/68 92 08/03/20 00:00 63 08/02/20 22:45 36.5 C 64 18 136/78 95 08/02/20 20:43 36.5 C 66 18 133/76 94 PG Care Time/CCT Total # of Minutes Spent Total Time Spent with Patient: Total time spent is greater than 50% in coordination of care (as documented) at patient's floor/unit and/or counseling patient: Coding Level of Care Code None Diagnoses Perforated viscus R19.8
[2020-08-03 07:49] LABS: BUN Creatinine Ratio 27.4 (10-20); Calcium 8.5 mg/dl (8.5-10.1); Creatinine Clr Calc Pharmacy 99.5 ml/min; Est GFR (African American) 92.6 ml/min; Est GFR (Non-African American) 79.9 ml/min; Magnesium 2.2 mg/dl (1.8-2.4); Potassium 2.9 mmol/L (3.5-5.1)
[2020-08-03] MEDS ORDERED: POTASSIUM CHLORIDE 20 MEQ/15 ML UDC GT STA (08:01)
[2020-08-03] MEDS: HEPARIN SOD 5,000 UNIT/0.5 ML VIAL SQ SCH ×2 (08:55→21:01)
[2020-08-03] MEDS: POTASSIUM CHLORIDE 20 MEQ/15 ML UDC GT SCH ×2 (08:57→21:01)
[2020-08-03] MEDS ORDERED: PANTOprazole 40 MG TAB PO SCH (09:00)
--- NOTE | 2020-08-03 09:26 | Communication Note ---
Date of Service: August 03, 2020 patient has been afebrile for more than 48 hrs blood culture /urine culture /central line catheter tip culture : no growth risk for C diff infection is moderately high with continuing antibiotics ( - prolong hospital admission /multiple abdominal procedures ) added Probiotics antibiotic : Cefepime /Vanco D/nehemias Ioana Martin MD
[2020-08-03] MEDS: PANTOprazole 40 MG in SYRINGE 0 ML IV SCH ×2 (09:58→21:01)
[2020-08-03] MEDS: COLCHICINE 0.6 MG TAB PO SCH ×2 (09:58→21:01)
[2020-08-03 10:34] LABS: Hematocrit (blood only) 27.5 % (42-52); Hemoglobin 8.7 g/dL (14.0-18.0); Mean Corpuscular Hemoglobin 29.8 pg (25-34); Mean Corpuscular Hgb Conc 31.6 g/dL (32-36); Mean Corpuscular Volume 94.2 fL (80-100); Mean Platelet Volume 9.2 fL (7.4-10.4); Nucleated RBC # (auto) 0.05 K/uL (0-0); Nucleated RBC % (auto) 0.4 %; Platelet Count 331 K/uL (130-400); RDW Coefficient of Variation 18.4 % (11.5-14.5); RDW Standard Deviation 63.7 fL (36.4-46.3); Red Blood Count 2.92 M/uL (4.7-6.1); White Blood Count 11.82 K/uL (4.8-10.8)
[2020-08-03] MEDS ORDERED: PANTOprazole 40 MG in SYRINGE 0 ML IV SCH (11:00)
[2020-08-03] MEDS: LACTOBACILLUS ACIDOPHILUS 1 GM PACK GT SCH ×2 (12:09→16:43)
[2020-08-03] MEDS: PEPTAMEN INTENSE VHP 1.0 CAL 1,000 ML BAG GT SCH (16:48)
--- NOTE | 2020-08-03 16:54 | Hospitalist Progress Note ---
Date of Service August 03, 2020 Assessment & Plan (1) Septic shock: Resolved, stable vitals Awake alert oriented x3 Admitted with severe sepsis with septic shock on admission due to perforated viscus/peritonitis, fungemia/dislodged G-tube 06/26/2020 : Status post sigmoidectomy with anastomosis/G-tube placement by Dr. Ware -was discharged home Readmission on 07/07/2020 with unresponsiveness, abdominal pain, severe pain. X-ray on admission showed large amount of free air under diaphragm-dislodged G- tube causing peritonitis 07/07/2020 :S/P Exp Laparotomy /replacement of G-tube with large inflated balloon covering the pylorus to prevent dislodgment Patient was intubated and , required pressor supports for hypotension-postop Extubated on 07/14/2020 Per surgery operative note, gastric stroma noted to be severely inflamed, friable-possible causing dislodgment of prior G-tube/large G-tube balloon placed obstructing the stomach pylorus Patient has been n.p.o. Started TPN on 07/15- D/nehemias as Centeral line taken out for infection concern on TF low rate via G tube , has been tolerating /will be discharged on tube feeding for long-term nutrition Lethargy/unresponsive less/metabolic encephalopathy. resolved , mental status at baseline Candidal sepsis Resolved: Blood culture: On 07/07/2020: Shantell Repeat blood culture on 07/09/2020: No growth No need for ANASTASIA at this time without persistent bloodstream infection. [facility] ID consult-appreciated Completed 14 days treatment of caspofungin (last dose 07/23/20) Central line discontinued Antibiotic discontinued, as there was no growth on blood or catheter tip culture (2) Postoperative ileus: resolved tube feeding feeding via G-tube started so far has been tolerating well: Surgery following closely Patient still have inflated balloon in stomach, tube feeding will be continued for 10 mL/h only no in treatment of rate, check gastric residual every 4 hours, (3) Fungemia: Resolved Candidal sepsis Blood culture: On 07/07/2020: Shantell Repeat blood culture on 07/09/2020: No growth Cont Caspofungin for 14 day course. No need for ANASTASIA at this time without persistent bloodstream infection. Completed the course of caspofungin (4) Diastolic CHF, chronic: Volume status stable (5) Bradycardia: No further episode, heart rate has been stable (6) COPD (chronic obstructive pulmonary disease): on BiPAP secondary to lethargy/hypoxia (7) Obesity hypoventilation syndrome: (8) Anemia: Possible anemia of chronic disease, hb Globin 7.8 transfusion criteria for hemoglobin less than 7 or any evidence of active bleeding (9) Post-operative state: (10) DVT prophylaxis: SQ Heparin Patient is DNR/DNI Disposition, prolonged hospital stay with multiple complications. Once clinically stable plan to return home with daughter /will be on tube feeding via G-tube for nutrition Admission and Anticipated Discharge Date Admission Date: July 07, 2020 Subjective Patient continues to do well, tolerating low-dose tube feeding, had multiple bowel movements, No complaint of shortness of breath remains in room air, no confusion or agitation no fever or chills Complain of abdominal pain no nausea Review of Systems Review of Systems: All systems reviewed & are unremarkable except as noted in Subjective Physical Exam Physical Exam: Physical exam: General: Weak and alert today, able to participate in conversation HEENT: Anicteric sclera Heart: Regular S1-S2, Lungs: Bibasilar crackles noted Abdomen: Distended, mid abdomen surgical scar appears to be well-healing, receiving tube feeding via G-tube Extremity: +12 bilateral lower extremity swelling with chronic toes deformity Neuro: Awake and alert, mental status back to baseline Results & Data Results & Data ([facility]) Vital Signs (Past 12 Hours) Vital Signs Temp Pulse Pulse Pulse Resp BP BP 08/03/20 15:36 36.3 C L 62 16 103/57 L 08/03/20 15:07 65 08/03/20 11:45 36.3 C L 62 18 98/60 L 08/03/20 07:31 36.5 C 70 20 122/68 08/03/20 07:16 68 Pulse Ox 08/03/20 15:36 90 08/03/20 15:07 08/03/20 11:45 95 08/03/20 07:31 08/03/20 07:16
[2020-08-03] MEDS ORDERED: INDOMETHACIN 50 MG SUPP PR ONE (17:08)
[2020-08-03 17:21] LABS: BUN Creatinine Ratio 28.9 (10-20); Calcium 8.5 mg/dl (8.5-10.1); Creatinine Clr Calc Pharmacy 99.5 ml/min; Est GFR (African American) 92.6 ml/min; Est GFR (Non-African American) 79.9 ml/min; Potassium 3.7 mmol/L (3.5-5.1)
[2020-08-03] MEDS: TAMSULOSIN HCL 0.4 MG CAP PEG SCH (21:01)
[2020-08-04] MEDS: INSULIN ASPART 100 UNITS/ML 3 ML PEN SC SCH ×5 (00:46→20:33)
[2020-08-04] MEDS: TUBE FEEDING WATER FLUSH GT SCH ×5 (01:23→17:27)
--- NOTE | 2020-08-04 05:40 | Surgery Progress Note ---
Date of Service August 04, 2020 Assessment & Plan (1) Perforated viscus: Repair of gastrostomy performed on 07/06/2020 Continue tube feeds this patient is tolerating them well. Consideration will be given to increasing oral intake once gastric balloon can be deflated safely Patient is receiving subcutaneous heparin for DVT prevention Admission and Anticipated Discharge Date Admission Date: July 07, 2020 Supervising Physician Co-Signing Physician Notes Dr. Moses -patient appears to be stable not quite as energetic Tolerating his tube feeds with good residuals Depending on patient's mental status may consider some small bites of full liquids later today We will check his a.m. laboratories No other significant changes for today from a surgical standpoint Subjective Patient denies any worsening abdominal pain, nausea, or vomiting. Fevers, shakes, chills noted. Discussed with mine shifter RN. She notes that patient is tolerating his tube feeds without difficulty. She does note he is having periods of intermittent confusion. No cardiac arrhythmias noted overnight. No other issues identified at this time. Physical Exam Gastrointestinal (Abdomen): Abdomen is rotund nondistended. There is no pain noted with palpation. There is no rebound tenderness or guarding. Results & Data ([facility]) Vital Signs (Past 12 Hours) Vital Signs Temp Pulse Pulse Resp BP Pulse Ox 08/04/20 03:17 36.6 C 65 22 100/60 98 08/04/20 03:10 62 20 98 08/04/20 01:00 57 L 08/03/20 22:19 36.5 C 61 20 109/69 95 08/03/20 21:00 60 18 97 08/03/20 19:11 65 20 90 08/03/20 19:00 36.5 C 66 18 106/58 L 84 L PG Care Time/CCT Total # of Minutes Spent Total Time Spent with Patient: Total time spent is greater than 50% in coordination of care (as documented) at patient's floor/unit and/or counseling patient: Coding Level of Care Code None Diagnoses Perforated viscus R19.8
[2020-08-04] MEDS ORDERED: LEVOTHYROXINE SODIUM 175 MCG TABLET PO SCH (06:30)
[2020-08-04 07:28] LABS: Hematocrit (blood only) 27.5 % (42-52); Hemoglobin 8.6 g/dL (14.0-18.0); Mean Corpuscular Hemoglobin 29.3 pg (25-34); Mean Corpuscular Hgb Conc 31.3 g/dL (32-36); Mean Corpuscular Volume 93.5 fL (80-100); Mean Platelet Volume 8.9 fL (7.4-10.4); Nucleated RBC % (auto) 0.8 %; Platelet Count 296 K/uL (130-400); RDW Coefficient of Variation 18.7 % (11.5-14.5); RDW Standard Deviation 63.4 fL (36.4-46.3); Red Blood Count 2.94 M/uL (4.7-6.1); White Blood Count 11.53 K/uL (4.8-10.8)
[2020-08-04 08:09] LABS: BUN Creatinine Ratio 25.3 (10-20); Creatinine Clr Calc Pharmacy 83.5 ml/min; Est GFR (African American) 73.6 ml/min; Est GFR (Non-African American) 63.5 ml/min; Magnesium 2.1 mg/dl (1.8-2.4); Potassium 3.9 mmol/L (3.5-5.1)
[2020-08-04 08:10] LABS: Magnesium 2.1 mg/dl (1.8-2.4); Phosphorus 3.6 mg/dl (2.5-4.9)
[2020-08-04 08:17] LABS: Prealbumin 7.2 mg/dl (20-40)
[2020-08-04] MEDS: PANTOprazole 40 MG in SYRINGE 0 ML IV SCH ×2 (08:50→20:48)
[2020-08-04] MEDS: COLCHICINE 0.6 MG TAB PO SCH ×2 (08:50→20:56)
[2020-08-04] MEDS: LACTOBACILLUS ACIDOPHILUS 1 GM PACK GT SCH ×3 (08:50→16:50)
[2020-08-04] MEDS: POTASSIUM CHLORIDE 20 MEQ/15 ML UDC GT SCH ×2 (08:51→20:55)
[2020-08-04] MEDS: HEPARIN SOD 5,000 UNIT/0.5 ML VIAL SQ SCH ×2 (08:51→20:48)
--- NOTE | 2020-08-04 11:47 | Hospitalist Progress Note ---
Date of Service August 04, 2020 Assessment & Plan (1) Septic shock: Resolved, stable vitals Awake alert oriented x3 Admitted with severe sepsis with septic shock on admission due to perforated viscus/peritonitis, fungemia/dislodged G-tube 06/26/2020 : Status post sigmoidectomy with anastomosis/G-tube placement by Dr. Ware -was discharged home Readmission on 07/07/2020 with unresponsiveness, abdominal pain, severe pain. X-ray on admission showed large amount of free air under diaphragm-dislodged G- tube causing peritonitis 07/07/2020 :S/P Exp Laparotomy /replacement of G-tube with large inflated balloon covering the pylorus to prevent dislodgment Patient was intubated and , required pressor supports for hypotension-postop Extubated on 07/14/2020 Per surgery operative note, gastric stroma noted to be severely inflamed, friable-possible causing dislodgment of prior G-tube/large G-tube balloon placed obstructing the stomach pylorus Patient has been n.p.o. Started TPN on 07/15-discontinued Central line taken out for infection concern on TF low rate 10 mL/h via G tube , has been tolerating /will be discharged on tube feeding for long-term nutrition Started on full liquid diet, has been tolerating well Lethargy/unresponsive less/metabolic encephalopathy. resolved , mental status at baseline Candidal sepsis Resolved: Blood culture: On 07/07/2020: Shantell Repeat blood culture on 07/09/2020: No growth No need for ANASTASIA at this time without persistent bloodstream infection. ID consult-appreciated Completed 14 days treatment of caspofungin (last dose 07/23/20) Central line discontinued Antibiotic discontinued, as there was no growth on blood or catheter tip culture (2) Postoperative ileus: resolved Tolerating low rate tube feeding via G-tube, started on full liquid diet today so far has been tolerating well: Surgery following closely (3) Fungemia: Resolved Candidal sepsis Blood culture: On 07/07/2020: Shantell Repeat blood culture on 07/09/2020: No growth Cont Caspofungin for 14 day course. No need for ANASTASIA at this time without pe rsistent bloodstream infection. Completed the course of caspofungin (4) Diastolic CHF, chronic: Volume status stable (5) Bradycardia: No further episode, heart rate has been stable (6) COPD (chronic obstructive pulmonary disease): on BiPAP secondary to lethargy/hypoxia (7) Obesity hypoventilation syndrome: (8) Anemia: Possible anemia of chronic disease, hb Globin 7.8 transfusion criteria for hemoglobin less than 7 or any evidence of active bleeding (9) Post-operative state: (10) DVT prophylaxis: SQ Heparin Patient is DNR/DNI Disposition, plan to discharged home with tube feeding via G-tube Admission and Anticipated Discharge Date Admission Date: July 07, 2020 Subjective Follow-up visit for perforated bowel, displaced G-tube/severe sepsis: Patient has been doing well, comfortable offers no new complain Patient was started on full liquid diet today by surgery, has been tolerating well, tube feeding via G-tube at 10 mL/h, with minimum gastric residual Alert and awake, very pleasant, no complaint of abdominal pain, no nausea or vomiting Had ankle/joint pain yesterday possible gout flare, given 1 dose of parenteral 50 mg indomethacin, Review of Systems Review of Systems: All systems reviewed & are unremarkable except as noted in Subjective Physical Exam Physical Exam: Physical exam: General: Weak and alert today, able to participate in conversation HEENT: Anicteric sclera Heart: Regular S1-S2, Lungs: Bibasilar crackles noted Abdomen: Distended, mid abdomen surgical scar appears to be well-healing, receiving tube feeding via G-tube Extremity: +12 bilateral lower extremity swelling with chronic toes deformity Neuro: Awake and alert, mental status back to baseline Results & Data Results & Data ([facility]) Vital Signs (Past 12 Hours) Vital Signs Temp Pulse Pulse Resp BP Pulse Ox 08/04/20 11:37 36.3 C L 64 16 119/67 94 08/04/20 07:35 36.6 C 65 18 108/65 98 08/04/20 07:29 70 08/04/20 03:17 36.6 C 65 22 100/60 98 08/04/20 03:10 62 20 98 08/04/20 01:00 57 L
[2020-08-04] MEDS ORDERED: GLUCAGON FOR INJ 1 MG VIAL SQ PRN (12:26)
[2020-08-04] MEDS ORDERED: DEXTROSE 50% 50 ML SYRINGE IV PRN (12:26)
[2020-08-04] MEDS ORDERED: CARBOHYDRATES FOR HYPOGLYCEMIA PO PRN (12:26)
[2020-08-04] MEDS ORDERED: GLUCOSE 40% GEL 15 GM TUBE PO PRN (12:26)
[2020-08-04] MEDS ORDERED: GLUCOSE 10 TABS/TUBE PO PRN (12:26)
[2020-08-04] MEDS ORDERED: TUBE FEEDING WATER FLUSH GT SCH ×2 (16:00)
[2020-08-04] MEDS: PEPTAMEN INTENSE VHP 1.0 CAL 1,000 ML BAG GT SCH (16:48)
[2020-08-04] MEDS: TAMSULOSIN HCL 0.4 MG CAP PEG SCH (20:56)
[2020-08-05] MEDS: TUBE FEEDING WATER FLUSH GT SCH ×4 (00:07→17:36)
--- NOTE | 2020-08-05 08:14 | Surgery Progress Note ---
Date of Service August 05, 2020 Assessment & Plan (1) Perforated viscus: Repair of gastrostomy performed on 07/06/2020 Over the weekend patient has been started on trickle TEN, tolerating well without issue Diet has been advanced to full liquids yesterday. He is having + bowel function No acute changes from yesterday, continue current care for now Will discuss any further advances in diet or TEN with Dr. Damon prior to initiating as above. pt seen. daughter at bedside. miguel TF's well so far. also eating some ( had yogurt, a breeze, etc.. this am. fed by daughter. no issues.) low residuals but I would rather get him eating real food if possible. will deflate balloon 5 cc's today and get him regular ( soft) diet and monitor how he does. daughter in agreement with plan. Admission and Anticipated Discharge Date Admission Date: July 07, 2020 Subjective Patient resting in bed. Daughter at bedside. She says he is doing well with trickle TEN and was able to tolerate some full liquids yesterday. Physical Exam Physical Exam: sleeping, CPAP on Constitutional: no acute distress Results & Data ([facility]) Vital Signs (Past 12 Hours) Vital Signs Temp Pulse Pulse Resp BP Pulse Ox 08/05/20 07:38 36.6 C 67 18 145/71 H 93 08/05/20 07:08 58 L 08/05/20 04:05 36.8 C 64 18 116/68 92 08/05/20 03:35 70 18 95 08/05/20 02:30 61 08/05/20 00:25 36.8 C 68 18 120/72 92 08/04/20 22:42 74 16 96 PG Care Time/CCT Total # of Minutes Spent Total Time Spent with Patient: Total time spent is greater than 50% in coordination of care (as documented) at patient's floor/unit and/or counseling patient: Coding Level of Care Code None Diagnoses Perforated viscus R19.8
[2020-08-05] MEDS: PANTOprazole 40 MG in SYRINGE 0 ML IV SCH (08:40)
[2020-08-05] MEDS: COLCHICINE 0.6 MG TAB PO SCH ×2 (08:41→22:11)
[2020-08-05] MEDS: LACTOBACILLUS ACIDOPHILUS 1 GM PACK GT SCH ×3 (08:41→17:19)
[2020-08-05] MEDS: POTASSIUM CHLORIDE 20 MEQ/15 ML UDC GT SCH (08:41)
[2020-08-05] MEDS: HEPARIN SOD 5,000 UNIT/0.5 ML VIAL SQ SCH ×2 (08:42→22:11)
[2020-08-05] MEDS: INSULIN ASPART 100 UNITS/ML 3 ML PEN SC SCH ×4 (08:44→21:02)
[2020-08-05 16:18] LABS: Hematocrit (blood only) 27.2 % (42-52); Hemoglobin 8.4 g/dL (14.0-18.0); Mean Corpuscular Hemoglobin 29.5 pg (25-34); Mean Corpuscular Hgb Conc 30.9 g/dL (32-36); Mean Corpuscular Volume 95.4 fL (80-100); Mean Platelet Volume 8.9 fL (7.4-10.4); Nucleated RBC # (auto) 0.08 K/uL (0-0); Nucleated RBC % (auto) 0.8 %; Platelet Count 299 K/uL (130-400); RDW Coefficient of Variation 18.7 % (11.5-14.5); RDW Standard Deviation 65.1 fL (36.4-46.3); Red Blood Count 2.85 M/uL (4.7-6.1); White Blood Count 10.05 K/uL (4.8-10.8)
[2020-08-05 16:38] LABS: Appearance Urine Cloudy (Clear); Bacteria Urine Automated Negative (Negative); Bilirubin Urine Negative (Negative); Blood Urine 3+ (Negative); Color Urine Orange; Epithelial Cell Urine Auto >30 /lpf (0-5); Glucose Urine UA Negative (Negative); Ketones Urine Trace (Negative); Leukocyte Esterase Urine 1+ (Negative); Nitrite Urine Negative (Negative); Protein Urine 2+ (Negative); RBC Urine Automated >30 /hpf (0-4); Urobilinogen Urine Negative (Negative); pH Urine 5.5 (4.5-7.5)
[2020-08-05 16:49] LABS: BUN Creatinine Ratio 22.3 (10-20); Calcium 8.6 mg/dl (8.5-10.1); Creatinine Clr Calc Pharmacy 68.4 ml/min; Est GFR (Non-African American) 48.3 ml/min; Potassium 3.8 mmol/L (3.5-5.1)
[2020-08-05 16:54] LABS: Renal Epithelial Cells Urine 0-5 /lpf (0-5)
--- NOTE | 2020-08-05 17:06 | Hospitalist Progress Note ---
Date of Service August 05, 2020 Assessment & Plan (1) Septic shock: altered mental status /less responsive / possible metabolic encephalopathy rule out infection /has chronic indwelling vann , ordered for UA and culture has been tolerating tricke rate ( 10 ml /hr ) tube feeding , started on solid today ordered for IV rocehin Admitted with severe sepsis with septic shock on admission due to perforated viscus/peritonitis, fungemia/dislodged G-tube 06/26/2020 : Status post sigmoidectomy with anastomosis/G-tube placement by Dr. Ware -was discharged home Readmission on 07/07/2020 with unresponsiveness, abdominal pain, severe pain. X-ray on admission showed large amount of free air under diaphragm-dislodged G- tube causing peritonitis 07/07/2020 :S/P Exp Laparotomy /replacement of G-tube with large inflated balloon covering the pylorus to prevent dislodgment Patient was intubated and , required pressor supports for hypotension-postop Extubated on 07/14/2020 Started TPN on 07/15-discontinued Central line taken out for infection concern on TF low rate 10 mL/h via G tube , has been tolerating /will be discharged on tube feeding for long-term nutrition G tube balloon deflated to 5 cc today diet advanced to low fiber Dysphagia : episodes of cough /chocking noted while drinking with straw speech eval appreciated pt is more lathergic today , could contribute to the chocking episode diet changed to full liquid , aspiration precaution avoid straw /keep HOB elevated while eating Video swallow study scheduled for tomorrow pt will be continued with full liquid diet with aspiration precaution Lethargy/unresponsive less/metabolic encephalopathy. check for underlying infection /UTI Candidal sepsis Resolved: Blood culture: On 07/07/2020: Shantell Repeat blood culture on 07/09/2020: No growth No need for ANASTASIA at this time without persistent bloodstream infection. ID consult-appreciated Completed 14 days treatment of caspofungin (last dose 07/23/20) Central line discontinued Antibiotic discontinued, as there was no growth on blood or catheter tip culture (2) Postoperative ileus: resolved Tolerating low rate tube feeding via G-tube, started on full liquid diet today so far has been tolerating well: Surgery following closely (3) Fungemia: Resolved Candidal sepsis Blood culture: On 07/07/2020: Shantell Repeat blood culture on 07/09/2020: No growth Cont Caspofungin for 14 day course. No need for ANASTASIA at this time without persistent bloodstream infection. Completed the course of caspofungin (4) Diastolic CHF, chronic: Volume status stable (5) Bradycardia: avoid AV douglas blocking drug brief episodes of bradycardia noted while coughing , recovered quickly (6) COPD (chronic obstructive pulmonary disease): CPAP at night (7) Obesity hypoventilation syndrome: (8) Anemia: Possible anemia of chronic disease, hb Globin 7.8 transfusion criteria for hemoglobin less than 7 or any evidence of active bleeding (9) Post-operative state: (10) DVT prophylaxis: SQ Heparin Patient is DNR/DNI Disposition, plan to discharged home with tube feeding via G-tube family updated at bedside Admission and Anticipated Discharge Date Admission Date: July 07, 2020 Subjective more lathergic and less responsive today per nursing in morning , noted to chocking /coughing while eating , causing brief episodeds of sinus pause/bradycardia no fever or chills vann draining cloudy concentrated urine ordered for UA and culture metabolic encephalpathy due to UTI ? empirically started on IV rocephin speech eval requested daughter updated at bedside Review of Systems Review of Systems: Unobtainable due to cognitive status Physical Exam Physical Exam: Physical exam: General: appears to be sedated , not able to follow command ( changed from baseline mental status ) HEENT: Anicteric sclera Heart: Regular S1-S2, Lungs: Bibasilar crackles noted Abdomen: Distended, mid abdomen surgical scar appears to be well-healing, receiving tube feeding via G-tube Extremity: +12 bilateral lower extremity swelling with chronic toes deformity Neuro: very lathergic , barely arousable Results & Data Results & Data ([facility]) Vital Signs (Past 12 Hours) Vital Signs Temp Pulse Pulse Resp BP Pulse Ox 08/05/20 15:49 67 08/05/20 14:49 36.9 C 68 20 118/70 91 08/05/20 07:38 36.6 C 67 18 145/71 H 93 08/05/20 07:08 58 L
[2020-08-05] MEDS: PEPTAMEN INTENSE VHP 1.0 CAL 1,000 ML BAG GT SCH (17:30)
[2020-08-05] MEDS ORDERED: cefTRIAXone SODIUM 2,000 MG in DEXTROSE 5% 50 ML IV SCH (18:00)
[2020-08-05 21:39] LABS: iSTAT Allen Test Pass; iSTAT Art Bld Gas pCO2 Correct 69 mmHg (35-46); iSTAT Art Bld Gas pH Corrected 7.154 (7.35-7.45); iSTAT Arterial Blood Gas HCO3 24 meg/L (19-24); iSTAT Arterial Blood Gas pCO2 70 mmHg (35-46); iSTAT Arterial Blood Gas pH 7.15 (7.35-7.45); iSTAT Arterial Blood Gas pO2 82 mmHg (80-95); iSTAT Arterial Blood Gas pO2 C 81; iSTAT Carbon Dioxide 26 mmol/L (24-31); iSTAT Hematocrit 31 % (42-52); iSTAT Hemoglobin 10.5 g/dl (14.0-18.0); iSTAT Potassium 3.8 mmol/L (3.3-5.0); iSTAT Site R Radial; iSTAT Sodium 139 mmol/L (135-144)
[2020-08-05] MEDS: POTASSIUM CHLORIDE 20 MEQ/15 ML UDC PO SCH (22:10)
[2020-08-05] MEDS: PANTOprazole 40 MG TAB PO SCH (22:10)
[2020-08-05] MEDS: TAMSULOSIN HCL 0.4 MG CAP PO SCH (22:11)
[2020-08-05 22:46] LABS: iSTAT Art Bld Gas pCO2 Correct 65 mmHg (35-46); iSTAT Art Bld Gas pH Corrected 7.183 (7.35-7.45); iSTAT Arterial Blood Gas HCO3 25 meg/L (19-24); iSTAT Arterial Blood Gas pCO2 66 mmHg (35-46); iSTAT Arterial Blood Gas pH 7.18 (7.35-7.45); iSTAT Arterial Blood Gas pO2 95 mmHg (80-95); iSTAT Arterial Blood Gas pO2 C 94; iSTAT Carbon Dioxide 27 mmol/L (24-31); iSTAT FiO2 35 %; iSTAT Hematocrit 26 % (42-52); iSTAT Hemoglobin 8.8 g/dl (14.0-18.0); iSTAT Potassium 3.7 mmol/L (3.3-5.0); iSTAT Site R Radial; iSTAT Sodium 140 mmol/L (135-144)
[2020-08-06] MEDS ORDERED: PIPERACILL/TAZOBAC CONSULT ACTIVE PRN (00:05)
[2020-08-06] MEDS ORDERED: PIPERACILLIN/TAZOBACTAM 4.5 GM in DEXTROSE 5% 100 ML IV ONE (00:30)
[2020-08-06] MEDS: TUBE FEEDING WATER FLUSH GT SCH ×4 (02:40→18:36)
[2020-08-06] MEDS: PIPERACILLIN/TAZOBACTAM 4.5 GM in DEXTROSE 5% 100 ML IV SCH ×3 (06:07→22:18)
--- NOTE | 2020-08-06 06:52 | CT Scan Report ---
CT head/brain wo con CLINICAL HISTORY: Acute change in mental status COMPARISON STUDY: 07/30/2020 TECHNIQUE: Axial CT of the brain is performed from the vertex to the skull base. IV contrast was not administered for this examination. A dose lowering technique was utilized adhering to the principles of ALARA. CT DOSE: FINDINGS: No intra or extra-axial mass lesions are visualized. There is no CT evidence of acute cortical infarc tion. There is no evidence of midline shift. There is no acute hemorrhage. No calvarial fractures ar e visualized. There are patchy white matter hypodensities likely on a small vessel basis. There is no evidence of pathologic ventricular dilatation. There is a right maxillary sinus inflammatory polyp/retention cyst. There is a right mastoid effusion . IMPRESSION: 1. Chronic right mastoid effusion 2. No acute intracranial findings. ACT 112: Negative or not required by law. Electronically signed by: Mike Thomas M.D. 08/06/2020 6:50 AM
--- NOTE | 2020-08-06 07:34 | CT Scan Report ---
CT SCAN OF THE ABDOMEN AND PELVIS WITHOUT CONTRAST CLINICAL HISTORY: Recent surgery. Lethargy. Pain. COMPARISON STUDY: 07/28/2020 TECHNIQUE: CT scan of the abdomen and pelvis was performed from the lung bases to the proximal femurs . Images are reviewed in the axial, sagittal, and coronal planes. IV contrast was not administered fo r this examination. A dose lowering technique was utilized adhering to the principles of ALARA. CT DOSE: 4380.59 mGy.cm FINDINGS: Lower chest: There is right lower lobe atelectasis/consolidation with air bronchograms. Clinical nyasia elation with respect to a pneumonia recommended. Similar but less pronounced findings are present wit hin the left lower lobe. Liver: There are stable hypodense hepatic lesions, possibly representing cysts. Gallbladder: Not visualized presumed surgically absent Spleen: Normal in size and attenuation. Pancreas: Unremarkable. Adrenal glands: Unremarkable. Kidneys: There is a nonobstructing 5 mm left renal calculus. There is no hydronephrosis. No ureteral or bladder calculi are visualized. Bowel: There is a sigmoid surgical anastomosis. There are persistent inflammatory changes adjacent to the surgical anastomosis. No gas is visualized within this area and there are no discrete fluid domingo ections to indicate a drainable abscess. There is mild gaseous distention of the colon and small luis f l with scattered air-fluid levels. This may be secondary to edema at the surgical anastomosis. The ap pendix appears normal. There is no evidence of acute diverticulitis. There is a gastrostomy tube pres ent. Peritoneum: There is no intraperitoneal free air or abdominal ascites. Vasculature: The abdominal aorta is normal in course and caliber. Adenopathy: None. Pelvic viscera: There is an indwelling Ibanez catheter. There is mild prostatomegaly. Skeletal structures: There is evidence for diffuse muscular atrophy. No destructive skeletal lesions are visualized. IMPRESSION: 1. Postsurgical changes of a sigmoid anastomosis. Mild upstream colonic and small bowel dilatation wi th scattered air-fluid levels, which could be secondary to edema at the anastomosis. An enterocolitis could appear similar 2. Persistent inflammatory changes adjacent to the colonic anastomosis without evidence of extralumin al gas or a drainable fluid collection 3. Stable hepatic hypodensities possibly representing cysts 4. Nonobstructing left renal calculus 5. No evidence of acute diverticulitis. No evidence of acute appendicitis. ACT 112: Negative or not required by law. Electronically signed by: Mike Thomas M.D. 08/06/2020 7:33 AM
[2020-08-06 07:46] LABS: Hematocrit (blood only) 25.5 % (42-52); Mean Corpuscular Hemoglobin 29.6 pg (25-34); Mean Corpuscular Hgb Conc 31.4 g/dL (32-36); Mean Corpuscular Volume 94.4 fL (80-100); Mean Platelet Volume 8.8 fL (7.4-10.4); Nucleated RBC # (auto) 0.06 K/uL (0-0); Nucleated RBC % (auto) 0.6 %; Platelet Count 292 K/uL (130-400); RDW Coefficient of Variation 18.4 % (11.5-14.5); RDW Standard Deviation 62.2 fL (36.4-46.3); White Blood Count 8.93 K/uL (4.8-10.8)
[2020-08-06 07:48] LABS: Allen Test Pos (Pos); Base Excess ABG -3.5 mEq/L (-9-1.8); HCO3 ABG 21 mmol/L (19-24); Oxygen Saturation ABG 97.9 % (90-95); PCO2 ABG 37 mmHg (35-46); PO2 ABG 104 mmHg (80-95); pH ABG 7.38 (7.35-7.45)
[2020-08-06] MEDS ORDERED: LACTOBACILLUS ACIDOPHILUS 1 GM PACK PO SCH (08:00)
[2020-08-06] MEDS: INSULIN ASPART 100 UNITS/ML 3 ML PEN SC SCH ×4 (08:00→21:07)
[2020-08-06 08:23] LABS: BUN Creatinine Ratio 21.3 (10-20); C Reactive Protein 8.02 mg/dl (0-0.29); Creatinine Clr Calc Pharmacy 58.9 ml/min; Est GFR (African American) 46.1 ml/min; Est GFR (Non-African American) 39.8 ml/min
--- NOTE | 2020-08-06 08:31 | CT Scan Report ---
CT chest diagnostic wo con CLINICAL HISTORY: hypoxia. COMPARISON STUDY: June 18, 2020 CT DOSE: TECHNIQUE: CT of the thorax was performed from the thoracic inlet to the lung bases. Images are revi ewed in the axial, sagittal, and coronal planes. IV contrast was not administered for this examinatio n. A dose lowering technique was utilized adhering to the principles of ALARA. FINDINGS: Lymph nodes:There is no axillary, supra clavicle or internal mammary lymphadenopathy seen. Mediastina l lymph nodes are not enlarged. Calcifications of the mediastinal lymph nodes are seen. Thyroid: Thyroid gland is not well seen. Esophagus:Proximal aspect of esophagus is populous. Thoracic aorta: Mild ectasia of ascending aorta measuring 4.1 cm in diameter. Descending thoracic aor ta is also slightly ectatic measuring 3.1 cm in diameter. Scattered calcifications of aortic wall are seen. Main pulmonary artery is slightly dilated which could be seen in pulmonary hypertension. Heart: The heart is normal in size and configuration, without pericardial effusion. Moderate coronary calcifications. Lungs and pleural spaces: Tracheobronchial tree is patent. Evaluation is limited due to respiratory motion artifact and partially expiratory phase. Redemonstrat ion of infiltrative opacities with air bronchograms within bilateral lower lobes and interval promine nce of the small right pleural effusion which also extends to the right major fissure. Upper abdomen: Few hypoattenuating lesions are again seen within partially visualized right lobe of the liver. Stomach is slightly dilated and distended with ingested material. Few gas-filled loops of large bowel within upper limits of normal. Skeletal structures: Redemonstration of sclerotic lesion within T7 vertebral body which was also seen on prior study. Multilevel degenerative changes of the spine. Bilateral gynecomastia. IMPRESSION: 1. Redemonstration of consolidative opacities at dependent portions of bilateral lower lobes is not significantly changed since prior study performed more than 6 weeks ago which might represent atelect asis or pneumonia. Aspiration pneumonia might also be included in differential diagnosis. Interval de velopment of small right pleural effusion. 2. Partially visualized hypoattenuating lesions within the right lobe of the liver, appear similar t o prior study and incompletely evaluated on current nondedicated exam. 3. Mild ectasia of ascending and descending thoracic aorta. Atherosclerosis. 4. Sclerotic lesion within T7 is again seen which might represent enostosis however blastic metastat ic lesion might have similar appearance. 5. Mild dilatation of the main pulmonary artery which could be seen in pulmonary hypertension. 6. Calcified nonenlarged mediastinal lymph nodes which could represent sequela from remote granuloma tous process. ACT 112: Negative or not required by law. The above report was generated using voice recognition software. It may contain grammatical, syntax o r spelling errors. Electronically signed by: Ashley Gentile DO 08/06/2020 8:29 AM
--- NOTE | 2020-08-06 09:18 | Hospitalist Progress Note ---
Date of Service August 06, 2020 Assessment & Plan Admission and Anticipated Discharge Date Admission Date: July 07, 2020 Subjective Last night code nathan was called as patient became more lethargic and hypoxic. Seems lethargic whole day and was started on rocephin for possible uti. Patient was not responding to verbal and touch stimuli. Was placed on bipap and saturations improved. Hemodynamics stable. Labs checked and were ok. Normal lactic acid and ammonia levels. Stat ABG showed co2 retention ph 7.15.Patient is DNR/DNI repeat abg not much improvement. Respiratory adjusted bipap settings. Preliminary reports:CT head no acute findings. Ct chest possible pneumonia, Ct abdomen fluid collection and colitis as before.Changed abx to zosyn. Having diarrhea checked stool cx and c diff.Daughter and family at bedside . Daughter says he did this few times so far and improved. Most likely co2 narcosis. If no improvement will consider eeg and mri scan and neurology consult.Also possibly from ongoing infection. Repeat abg in am looks fine. Results & Data Results & Data ([facility]) Vital Signs (Past 12 Hours) Vital Signs Pulse Pulse Pulse Resp BP Pulse Ox 08/06/20 07:37 62 24 96 08/06/20 07:35 56 L 27 H 110/62 96 08/06/20 04:04 56 L 20 104/60 97 08/06/20 04:00 73 08/06/20 02:59 57 L 22 96 08/06/20 00:33 51 L 53 L 20 104/59 L 97 08/05/20 23:59 73 08/05/20 22:34 75 24 94 08/05/20 21:23 72 22 95
[2020-08-06] MEDS: HEPARIN SOD 5,000 UNIT/0.5 ML VIAL SQ SCH ×2 (10:00→20:42)
[2020-08-06] MEDS: COLCHICINE 0.6 MG TAB PO SCH ×2 (10:00→20:35)
[2020-08-06] MEDS: POTASSIUM CHLORIDE 20 MEQ/15 ML UDC PO SCH ×2 (10:00→21:46)
[2020-08-06] MEDS: ADVANCED PROBIOTIC 1250 MG CAPSULE PO SCH (10:00)
[2020-08-06] MEDS: PANTOprazole 40 MG TAB PO SCH ×2 (10:00→21:42)
--- NOTE | 2020-08-06 10:25 | Surgery Progress Note ---
Date of Service August 06, 2020 Assessment & Plan (1) Bowel perforation: events of last night noted. no real evidence of aspiration on imaging. co2 narcoses suspected by primary team could restart tube feeds at 10 cc's today. would hold on oral intake until more alert. Admission and Anticipated Discharge Date Admission Date: July 07, 2020 Subjective pt resting...somewhat lethargic. appears comfortable. Physical Exam Physical Exam: nad abd: soft. nt. nd. g-tube in place Results & Data ([facility]) Vital Signs (Past 12 Hours) Vital Signs Pulse Pulse Pulse Resp BP Pulse Ox 08/06/20 07:37 62 24 96 08/06/20 07:35 56 L 27 H 110/62 96 08/06/20 04:04 56 L 20 104/60 97 08/06/20 04:00 73 08/06/20 02:59 57 L 22 96 08/06/20 00:33 51 L 53 L 20 104/59 L 97 08/05/20 23:59 73 08/05/20 22:34 75 24 94 PG Care Time/CCT Total # of Minutes Spent Total Time Spent with Patient: Total time spent is greater than 50% in coordination of care (as documented) at patient's floor/unit and/or counseling patient: Coding Level of Care Code None Diagnoses Bowel perforation K63.1
--- NOTE | 2020-08-06 17:01 | Hospitalist Progress Note ---
Date of Service August 06, 2020 Assessment & Plan (1) Septic shock: Altered mental status; possibly metabolic encephalopathy Septic shock on admission Perforated viscus/peritonitis, fungemia/dislodged G-tube on admission 1) Recurrent sigmoid volvulus with exp laparotomy, sigmoidectomy and gastrostomy S/P 2 decompressive colonoscopies with sigmoidectomy and/G-tube placement 06/26/20 2) Readmission on 07/07/2020 with unresponsiveness, abdominal pain, severe pain. X-ray on admission showed large amount of free air under diaphragm-dislodged G- tube causing peritonitis 07/07/2020 :S/P Exp Laparotomy /replacement of G-tube with large inflated balloon covering the pylorus to prevent dislodgment; extubated on 07/14/20 History of chronic diastolic heart failure extubation History of COPD History of hypertension History of hypothyroid History of gout Sleep apnea Patient is 79-year-old male with above comorbidities presented with bowel perforation. Patient underwent 2 decompressive colonoscopies performed this admission with sigmoidectomy and/G-tube placement. He have had a complicated course during this hospitalization. Did have candy developed sepsis and have completed 14 days of treatment with caspofungin. Of note, on 08/05 code purple was called due to patient being lethargic and hypoxic. CT head was obtained which did not reveal any acute findings. CT abdomen/pelvis was obtained which did not reveal any new findings. CT chest was obtained which revealed concern for possible consolidative opacities at dependent portions of bilateral lower lobes is not significantly changed since prior study performed more than 6 weeks ago which might represent atelectasis or pneumonia. There was concern for possible aspiration episode. Currently patient is on room air. He remains NPO. Nutrition is on board. Will continue with Zosyn at this time. Patient remains afebrile and WBC is not concerning. Nutrition Was started on TPN 07/15 for roughty two weeks. Was on purred until 08/05/20. However given concern with aspirtion on 08/05, patient was made NPO. Plan to start TPN now. Nutirion is on board. Dysphagia : Patient remains NPO give concern for aspiration on 08/05. Plan to restart TPN now. Nutrition is on board. Candidal sepsis - resolved Blood culture: On 07/07/2020: Shantell Repeat blood culture on 07/09/2020: No growth No need for ANASTASIA at this time without persistent bloodstream infection. ID consult-appreciated Completed 14 days treatment of caspofungin (last dose 07/23/20) Central line discontinued Antibiotic discontinued, as there was no growth on blood or catheter tip culture (2) Postoperative ileus: resolved Tolerating low rate tube feeding via G-tube, started on full liquid diet today so far has been tolerating well: Surgery following closely (3) Fungemia: Resolved Candidal sepsis Blood culture: On 07/07/2020: Shantell Repeat blood culture on 07/09/2020: No growth Cont Caspofungin for 14 day course. No need for ANASTASIA at this time without persistent bloodstream infection. Completed the course of caspofungin (4) Diastolic CHF, chronic: Volume status stable (5) Bradycardia: avoid AV douglas blocking drug brief episodes of bradycardia noted while coughing , recovered quickly (6) COPD (chronic obstructive pulmonary disease): CPAP at night (7) Obesity hypoventilation syndrome: (8) Anemia: Possible anemia of chronic disease, Hgb of 8 transfusion criteria for hemoglobin less than 7 or any evidence of active bleeding (9) Post-operative state: (10) DVT prophylaxis: SQ Heparin Patient is DNR/DNI Disposition, plan to discharged home with tube feeding via G-tube family updated at bedside Admission and Anticipated Discharge Date Admission Date: July 07, 2020 Subjective This morning patient is awake and alert. Does not appear to be in any distress. Does appear lethargic. Was oriented x3. Denies any chest pain, shortness of breath, abdominal pain, nausea, vomiting, diarrhea or dysuria. Of note last evening code purple was called due tova patient being more lethargic and hypoxic. Review of Systems Review of Systems: All systems reviewed & are unremarkable except as noted in HPI & below Physical Exam Physical Exam: General: A&Ox3. HENT: NCAT, MMM, EOMI Eyes: PERRLA Neck: Supple, normal range of motion CVS: normal rate and rhythm Resp: b/l decrease breath sounds Abdomen: Soft, incisions c/d/i, G-tube in place, distended but non-tender Extremities: 1-2+ LE edema Neuro: face symmetric, strength grossly equal, no focal deficit Skin: warm and dry, no rashes/lesions/errythema MSK: normal ROM, no joint swelling/erythema Results & Data Results & Data ([facility]) Vital Signs (Past 12 Hours) Vital Signs Temp Pulse Pulse Resp BP Pulse Ox 08/06/20 15:52 36.5 C 57 L 18 118/53 L 92 08/06/20 11:37 36.8 C 18 108/57 L 94 08/06/20 08:00 54 L 08/06/20 07:37 62 24 96 08/06/20 07:35 56 L 27 H 110/62 96
[2020-08-06] MEDS: TAMSULOSIN HCL 0.4 MG CAP PO SCH (21:02)
[2020-08-06] MEDS ORDERED: Nursing to Pharmacy Communication SCH (21:15)
[2020-08-06] MEDS: PANTOprazole 40 MG in SYRINGE 0 ML IV SCH (22:18)
[2020-08-07] MEDS: INSULIN ASPART 100 UNITS/ML 3 ML PEN SC SCH ×4 (00:51→18:18)
[2020-08-07] MEDS: TUBE FEEDING WATER FLUSH GT SCH ×4 (00:52→18:20)
[2020-08-07] MEDS: PIPERACILLIN/TAZOBACTAM 4.5 GM in DEXTROSE 5% 100 ML IV SCH ×3 (05:17→20:32)
[2020-08-07] MEDS: HEPARIN SOD 5,000 UNIT/0.5 ML VIAL SQ SCH (09:06)
[2020-08-07] MEDS: COLCHICINE 0.6 MG TAB PO SCH ×2 (09:06→20:26)
[2020-08-07] MEDS: PANTOprazole 40 MG in SYRINGE 0 ML IV SCH ×2 (09:06→20:27)
[2020-08-07] MEDS: POTASSIUM CHLORIDE 20 MEQ/15 ML UDC PO SCH ×2 (09:06→20:27)
[2020-08-07] MEDS: ADVANCED PROBIOTIC 1250 MG CAPSULE PO SCH (09:07)
--- NOTE | 2020-08-07 10:39 | Surgery Progress Note ---
Date of Service August 07, 2020 Assessment & Plan (1) Post-operative state: ? if he really aspirated or not. video esophagram planned. miguel 10 cc's /hour . will increase to 20 cc's/hour.... will try to get him up to goal over next 24 hours or so if he tolerates. would like to restart oral intake if he passes the video esophogram. Admission and Anticipated Discharge Date Admission Date: July 07, 2020 Subjective pt sleeping . discussed care with RN. no issues. awake/alert/oriented this AM... + very large BM. Physical Exam Physical Exam: sleeping. nad abd: soft. nt. nd. Results & Data ([facility]) Vital Signs (Past 12 Hours) Vital Signs Temp Pulse Pulse Resp BP BP Pulse Ox 08/07/20 08:00 53 L 08/07/20 07:46 36.5 C 60 25 H 130/73 92 08/07/20 03:58 36.3 C L 55 L 28 H 115/62 97 08/07/20 02:25 61 25 H 96 08/07/20 00:05 36.2 C L 52 L 28 H 111/62 94 08/07/20 00:00 48 L PG Care Time/CCT Total # of Minutes Spent Total Time Spent with Patient: Total time spent is greater than 50% in coordination of care (as documented) at patient's floor/unit and/or counseling patient: Coding Level of Care Code None Diagnoses Post-operative state Z98.890
[2020-08-07 10:56] LABS: Hematocrit (blood only) 27.6 % (42-52); Hemoglobin 8.9 g/dL (14.0-18.0); Mean Corpuscular Hemoglobin 29.6 pg (25-34); Mean Corpuscular Volume 91.7 fL (80-100); Nucleated RBC # (auto) 0.05 K/uL (0-0); Nucleated RBC % (auto) 0.4 %; Platelet Count 277 K/uL (130-400); RDW Coefficient of Variation 18.6 % (11.5-14.5); RDW Standard Deviation 60.9 fL (36.4-46.3); Red Blood Count 3.01 M/uL (4.7-6.1); White Blood Count 10.33 K/uL (4.8-10.8)
[2020-08-07 11:00] LABS: Mean Corpuscular Hgb Conc 32.2 g/dL (32-36)
[2020-08-07 11:14] LABS: ALC (manual) 1.73 K/uL (1.2-3.4); ANC (manual) 7.52 K/uL (1.4-6.5); Basophils # (manual) 0.19 K/uL (0-0.2); Basophils % (manual) 1.8 %; Eosinophils # (manual) 0.27 K/uL (0-0.5); Eosinophils % (manual) 2.6 %; Lymphocytes # (manual) 1.73 K/uL (1.2-3.4); Lymphocytes % (manual) 16.7 %; Metamyelocytes # (manual) 0.27 K/uL (0-0); Metamyelocytes % (manual) 2.6 %; Monocytes # (manual) 0.36 K/uL (0.11-0.59); Monocytes % (manual) 3.5 %; Neutrophils # (manual) 7.52 K/uL (1.4-6.5); Neutrophils % (manual) 72.8 %; Polychromasia 1+
[2020-08-07 11:23] LABS: Albumin Level 1.7 gm/dl (3.4-5.0); BUN Creatinine Ratio 17.9 (10-20); Calcium 8.6 mg/dl (8.5-10.1); Creatinine Clr Calc Pharmacy 44.9 ml/min; Est GFR (African American) 34.5 ml/min; Est GFR (Non-African American) 29.7 ml/min; Potassium 2.9 mmol/L (3.5-5.1)
[2020-08-07 11:26] LABS: Albumin Globulin Ratio 0.4 (0.9-2); Bilirubin,Total 0.4 mg/dl (0.2-1); Globulin 4.4 gm/dl (2.5-4.0); Total Protein 6.1 gm/dl (6.4-8.2)
--- NOTE | 2020-08-07 12:56 | Hospitalist Progress Note ---
Date of Service August 07, 2020 Assessment & Plan (1) Septic shock: Altered mental status; possibly metabolic encephalopathy - resolved, today Ox3 Septic shock on admission - resolved Perforated viscus/peritonitis, fungemia/dislodged G-tube on admission 1) Recurrent sigmoid volvulus with exp laparotomy, sigmoidectomy and gastrostomy S/P 2 decompressive colonoscopies with sigmoidectomy and/G-tube placement 06/26/20 2) Readmission on 07/07/2020 with unresponsiveness, abdominal pain, severe pain. X-ray on admission showed large amount of free air under diaphragm-dislodged G- tube causing peritonitis 07/07/2020 :S/P Exp Laparotomy /replacement of G-tube with large inflated balloon covering the pylorus to prevent dislodgment; extubated on 07/14/20 History of chronic diastolic heart failure extubation History of COPD History of hypertension History of hypothyroid History of gout History of Sleep apnea Patient is 79-year-old male with above comorbidities presented with bowel perforation. Patient underwent 2 decompressive colonoscopies performed this admission with sigmoidectomy and/G-tube placement. He have had a complicated course during this hospitalization. Did have candy developed sepsis and have completed 14 days of treatment with caspofungin. Of note, on 08/05 code purple was called due to patient being lethargic and hypoxic. CT head was obtained which did not reveal any acute findings. CT abdomen/pelvis was obtained which did not reveal any new findings. CT chest was obtained which revealed concern for possible consolidative opacities at dependent portions of bilateral lower lobes is not significantly changed since prior study performed more than 6 weeks ago which might represent atelectasis or pneumonia. There was concern for possible aspiration episode. Currently patient is on room air. He remains NPO. Nutrition is on board. Will continue with Zosyn at this time. Patient remains afebrile and WBC is not concerning. Plan is to obtain esophogram. K of 2.9 today; repleted. Nutrition Dysphagia Was started on TPN 07/15 for roughty two weeks. Was on purred until 08/05/20. However given concern with aspirtion on 08/05, patient was made NPO. Nutirion is on board. Continue with tube feeds, 20 cc/h. Possible plan to restart oral feeds after video esophagram Candidal sepsis - resolved Blood culture: On 07/07/2020: Shantell Repeat blood culture on 07/09/2020: No growth No need for ANASTASIA at this time without persistent bloodstream infection. ID consult-appreciated Completed 14 days treatment of caspofungin (last dose 07/23/20) Central line discontinued Antibiotic discontinued, as there was no growth on blood or catheter tip culture (2) Postoperative ileus: Resolved (3) Fungemia: Resolved Candidal sepsis Blood culture: On 07/07/2020: Shantell Repeat blood culture on 07/09/2020: No growth Cont Caspofungin for 14 day course. No need for ANASTASIA at this time without persistent bloodstream infection. Completed the course of caspofungin (4) Diastolic CHF, chronic: Volume status stable (5) Bradycardia: avoid AV douglas blocking drug brief episodes of bradycardia noted while coughing , recovered quickly (6) COPD (chronic obstructive pulmonary disease): CPAP at night (7) Obesity hypoventilation syndrome: (8) Anemia: Possible anemia of chronic disease, Hgb of 8.9 transfusion criteria for hemoglobin less than 7 or any evidence of active bleeding (9) Post-operative state: (10) DVT prophylaxis: SQ Heparin Patient is DNR/DNI Admission and Anticipated Discharge Date Admission Date: July 07, 2020 Subjective Patient is awake, alert and oriented x3. denies any pain or any discomfort. Denies any chest pain or shortness of breath. Denies any abdominal pain or diarrhea. Denies any nausea or vomiting. Review of Systems Review of Systems: All systems reviewed & are unremarkable except as noted in HPI & below Physical Exam Physical Exam: General: A&Ox3. HENT: NCAT, MMM, EOMI Eyes: PERRLA Neck: Supple, normal range of motion CVS: normal rate and rhythm Resp: b/l decrease breath sounds Abdomen: Soft, incisions c/d/i, G-tube in place, distended but non-tender Extremities: 1-2+ LE edema Neuro: face symmetric, strength grossly equal, no focal deficit Skin: warm and dry, no rashes/lesions/errythema MSK: normal ROM, no joint swelling/erythema Results & Data Results & Data ([facility]) Vital Signs (Past 12 Hours) Vital Signs Temp Pulse Pulse Resp BP BP Pulse Ox 08/07/20 11:14 50 L 17 137/64 94 08/07/20 08:00 53 L 08/07/20 07:46 36.5 C 60 25 H 130/73 92 08/07/20 03:58 36.3 C L 55 L 28 H 115/62 97 08/07/20 02:25 61 25 H 96
[2020-08-07] MEDS: POTASSIUM CHLORIDE / WTR 10 MEQ/100 ML PLCT IV SCH ×4 (13:47→17:15)
[2020-08-07] MEDS: TAMSULOSIN HCL 0.4 MG CAP PO SCH (20:27)
[2020-08-08] MEDS: INSULIN ASPART 100 UNITS/ML 3 ML PEN SC SCH ×4 (00:19→18:19)
[2020-08-08] MEDS: TUBE FEEDING WATER FLUSH GT SCH ×4 (00:20→18:20)
[2020-08-08] MEDS: PIPERACILLIN/TAZOBACTAM 4.5 GM in DEXTROSE 5% 100 ML IV SCH ×3 (05:55→20:41)
[2020-08-08] MEDS: ADVANCED PROBIOTIC 1250 MG CAPSULE PO SCH (09:23)
[2020-08-08] MEDS: POTASSIUM CHLORIDE 20 MEQ/15 ML UDC PO SCH ×3 (09:23→20:40)
[2020-08-08] MEDS: COLCHICINE 0.6 MG TAB PO SCH ×2 (09:24→20:40)
[2020-08-08] MEDS: PANTOprazole 40 MG in SYRINGE 0 ML IV SCH ×2 (09:24→20:41)
[2020-08-08 12:05] LABS: BUN Creatinine Ratio 16.5 (10-20); Calcium 8.7 mg/dl (8.5-10.1); Creatinine Clr Calc Pharmacy 38.2 ml/min; Est GFR (African American) 28.4 ml/min; Est GFR (Non-African American) 24.5 ml/min; Magnesium 2.2 mg/dl (1.8-2.4); Phosphorus 3.7 mg/dl (2.5-4.9); Potassium 2.6 mmol/L (3.5-5.1)
[2020-08-08] MEDS: POTASSIUM CHLORIDE 40 MEQ in SODIUM CHLORIDE 0.9% 1000ML 1,000 ML IV SCH ×2 (12:49→20:39)
--- NOTE | 2020-08-08 13:24 | Surgery Progress Note ---
Date of Service August 08, 2020 Assessment & Plan (1) Perforated viscus: will increase tube feeds to 30...if tolerates will increase to 40 this afternoon. will await further speech/swallowing w/u before resuming po intake. Admission and Anticipated Discharge Date Admission Date: July 07, 2020 Subjective pt sleeping with CPAP on...d/w nursing. no issues with tube feeds at 20 cc's. virtually no residual. Physical Exam Physical Exam: abd: soft. tube in place. Results & Data ([facility]) Vital Signs (Past 12 Hours) Vital Signs Temp Pulse Pulse Resp BP Pulse Ox 08/08/20 11:19 36.4 C L 60 22 119/60 95 08/08/20 08:00 56 L 08/08/20 07:53 36.3 C L 58 L 24 102/63 94 08/08/20 04:11 71 16 95 08/08/20 04:00 36.3 C L 62 20 121/63 97 PG Care Time/CCT Total # of Minutes Spent Total Time Spent with Patient: Total time spent is greater than 50% in coordination of care (as documented) at patient's floor/unit and/or counseling patient: Coding Level of Care Code None Diagnoses Perforated viscus R19.8
[2020-08-08 18:25] LABS: BUN Creatinine Ratio 17.4 (10-20); Calcium 8.7 mg/dl (8.5-10.1); Creatinine Clr Calc Pharmacy 36.8 ml/min; Est GFR (African American) 27.2 ml/min; Est GFR (Non-African American) 23.4 ml/min; Potassium 2.9 mmol/L (3.5-5.1)
[2020-08-08] MEDS: TAMSULOSIN HCL 0.4 MG CAP PO SCH (20:40)
--- NOTE | 2020-08-08 22:52 | Hospitalist Progress Note ---
Date of Service August 08, 2020 Assessment & Plan (1) Septic shock: septic shock on admission 2/ perforated viscus/peritonitis and fungemia with dislodged G-tube on admission. He underwent surgical correction of this, with an extended recovery in intensive care and requiring TPN. He was able to progress to tolerating PO and G-tube feeds. (2) Acute kidney failure: Likely related to dehydration from recent NPO status. Replacing potassium today and will restart diet cautiously after bedside swallow evaluation. G tube feeds are not at goal to support total nutrition (currently 40cc/hr but would need 70 cc/hr to support total nutrition). Nephro consulted for assistance. Urine studies. (3) Aspiration into airway: On 07/30 he was placed on cefepime overnight when he was found to be lethargic out of concern for possible aspiration. Cefepime was continued until 08/03, then stopped. He was given Rocephin after this for possible UTI (Urine culture negative) and this was switched to Zosyn on 08/06. A code purple on 08/05 was called secondary to lethargy and hypoxia again, chest imaging was unchanged, however, out of concern for aspiration Zosyn was added back again and he was made NPO. Video swallow study has not been able to be performed. The patient is recovering from a major surgery and illness and needs nutrition. Renal failure may be related to NPO status and possible dehydration. Will have nurse perform bedside swallow and reassess this to restart PO nutrition andreas. Will stop antibiotics after repeat procalcitonin as he has received more than enough at this point and remains hypoxic, mentally stable and afebrile. (4) Postoperative ileus: Resolved (5) Fungemia: Resolved-Completed the course of caspofungin (6) Diastolic CHF, chronic: Volume status is difficulty to appreciate as patient is very deconditioned. However, likely somewhat dehydrated given overall clinical picture and NPO status for several days. No diuretics on board at this time. Cont to monitor closely. IVF as needed. (7) Bradycardia: avoid AV douglas blocking drug brief episodes of bradycardia noted while coughing this admission , recovered quickly (8) COPD (chronic obstructive pulmonary disease): CPAP at night (9) Anemia: multifactorial with etiologies including but not limiited to recent surgeries, prolonged hospitalizations with frequent phlebotomy and multiple chronic comorbidities. No indication for transfusion at this time, and no evidence of active bleeding. (10) Bowel perforation: s/p surgical repair as above. Cont PPI BID at this time. (11) Post-operative state: (12) Hypothyroidism: Pt is on Levothyroxine 175mcg PO daily, which has not been given consistently this admission. This may be contributing to his fatigue. Will restart this now and recheck TSH. (13) DVT prophylaxis: SQ Heparin Patient is DNR/DNI Dispo-cont PCU for now DO Vicente Rosenthal Hospitalist Admission and Anticipated Discharge Date Admission Date: July 07, 2020 Subjective 79 yo M s/p ex lap with repair of gastrostomy, was in ICU for a period of time receiving TPN, now able to use G tube for feeds. He was also tolerating PO until a few days ago when this was held out of concern for aspiration. Unfortunately a video swallow study was delayed 2/2 a code purple called as p atient became more lethargic and hypoxic. He was placedon BIPAP with improvement clinically, however, has remained NPO since that time, relying solely on G tube feedings for input. Notable hypokalemia present with worsening renal function. Patient is awake and alert reporting no issues today. Denies pain. Review of Systems Review of Systems: All systems reviewed & are unremarkable except as noted in Subjective Physical Exam Physical Exam: CONSTITUTIONAL: obese, vitals as above, NAD, deconditioned EYES: normal conjunctivae ENT: external ear and nose normal, MMM RESPIRATORY: difficult to assess as patient is heavy to move and very weak, has difficulty moving independently in the bed and cannot sit up or roll on his own. Limited auscultation is clear without rhonchi, rales or wheezing. No respiratory distress. CARDIOVASCULAR: regular rate and rhythm, S1 and 2 heard without murmurs, gallops or rubs, no JVD, no peripheral edema. GASTROINTESTINAL: soft, abdominal surgical wounds are closed and healing well, G tube in place with no surrounding erythema or drainage. MUSCULOSKELETAL: significant generalized weakness throughout SKIN: warm and dry NEUROLOGIC: CN 2-12 grossly intact, weakness precludes in depth assessment, but overall appears grossly normal. Results & Data Results & Data ([facility]) Vital Signs (Past 12 Hours) Vital Signs Temp Pulse Pulse Resp BP BP Pulse Ox 08/08/20 21:06 106/58 L 08/08/20 21:00 56 L 18 92 08/08/20 20:05 37.0 C 58 L 20 92/64 L 94 08/08/20 16:00 61 08/08/20 15:08 34.6 C L 55 L 21 100/59 L 95 08/08/20 11:19 36.4 C L 60 22 119/60 95 Laboratory Results BMP 08/08/20 08/08/20 11:41 17:40 Sodium 142 141 Potassium 2.6 L 2.9 L Chloride 112 H 112 H Carbon Dioxide 21 19 L BUN 40 H 44 H Creatinine 2.42 H D 2.51 H Glucose 100 H 113 H Calcium 8.7 8.7 Medications Administered Current Inpatient Medications Colchicine (Colchicine 0.6 Mg Tab) 0.6 mg PO BID YOSSI Stop: 09/02/20 08:59 Last Admin: 08/08/20 20:40 Dose: 0.6 mg Documented by: Dextrose (Dextrose 50% 50 Ml Syringe) 25 - 50 ml IV UD PRN; Protocol PRN Reason: Hypoglycemia Protocol Stop: 09/03/20 12:25 Glucagon (Glucagon For Inj 1 Mg Vial) 1 mg SQ UD PRN; Protocol PRN Reason: Hypoglycemia Protocol Stop: 09/03/20 12:25 Glucose (Glucose 10 Tabs/Tube) 4 - 8 tabs PO UD PRN; Protocol PRN Reason: Hypoglycemia Protocol Stop: 09/03/20 12:25 Glucose (Glucose 40% Gel 15 Gm Tube) 15 - 30 gm PO UD PRN; Protocol PRN Reason: Hypoglycemia Protocol Stop: 09/03/20 12:25 Heparin Sodium (Beef Lung) (Heparin 10 Unit/Ml 5 Ml Flush) 5 ml FLUSH PRN PRN PRN Reason: Flush Stop: 08/09/20 20:58 Last Admin: 07/30/20 13:29 Dose: 5 ml Documented by: Piperacillin Sod/Tazobactam (Sod 4.5 gm/ Dextrose) 120 mls @ 30 mls/hr IV Q8H YOSSI; Protocol Stop: 08/16/20 05:59 Last Admin: 08/08/20 20:41 Dose: 30 mls/hr Documented by: Pantoprazole Sodium 40 mg/ (Syringe) 10 mls @ 5 mls/min IV BID YOSSI Stop: 09/05/20 21:59 Last Admin: 08/08/20 20:41 Dose: 5 mls/min Documented by: Potassium Chloride 40 meq/ (Sodium Chloride) 1,020 mls @ 125 mls/hr IV .Q8H10M YOSSI Stop: 08/09/20 05:04 Last Admin: 08/08/20 20:39 Dose: 125 mls/hr Documented by: Insulin Aspart (Insulin Aspart 100 Units/Ml 3 Ml Pen) 0 units SC Q6 YOSSI Stop: 09/03/20 16:29 Last Admin: 08/08/20 18:19 Dose: Not Given Documented by: Lactobacillus Acidoph/Casei/Rhamnos (Advanced Probiotic 1250 Mg Capsule) 2 cap PO DAILY YOSSI Stop: 09/05/20 08:59 Last Admin: 08/08/20 09:23 Dose: 2 cap Documented by: Miscellaneous (Carbohydrates For Hypoglycemia ) 15 - 30 gm PO UD PRN PRN Reason: Hypoglycemia Protocol Stop: 09/03/20 12:25 Miscellaneous Information (Piperacill/Tazobac Consult Active) 1 ea N/A UD PRN PRN Reason: Consult Stop: 09/05/20 00:04 Nutritional Formula (Peptamen Intense Vhp 1.0 Ata 1,000 Ml Bag) 1,000 ml GT UD YOSSI; Protocol Stop: 08/31/20 13:14 Last Admin: 08/05/20 17:30 Dose: 1,000 ml Documented by: Pantoprazole Sodium (Pantoprazole 40 Mg Tab) 40 mg PO BID YOSSI Stop: 09/04/20 20:59 Last Admin: 08/06/20 21:42 Dose: Not Given Documented by: Potassium Chloride (Potassium Chloride 20 Meq/15 Ml Udc) 40 meq PO Q6H YOSSI Stop: 08/09/20 01:01 Last Admin: 08/08/20 20:40 Dose: 40 meq Documented by: Sterile Water (Tube Feeding Water Flush) 100 ml GT Q6 YOSSI Stop: 09/03/20 17:59 Last Admin: 08/08/20 18:20 Dose: 100 ml Documented by: Tamsulosin HCl (Tamsulosin Hcl 0.4 Mg Cap) 0.4 mg PO HS YOSSI Stop: 09/04/20 20:59 Last Admin: 08/08/20 20:40 Dose: 0.4 mg Documented by:
[2020-08-09] MEDS: TUBE FEEDING WATER FLUSH GT SCH ×4 (00:40→17:50)
[2020-08-09] MEDS: INSULIN ASPART 100 UNITS/ML 3 ML PEN SC SCH ×5 (00:41→23:12)
[2020-08-09] MEDS: POTASSIUM CHLORIDE 20 MEQ/15 ML UDC PO SCH (02:01)
[2020-08-09] MEDS: PIPERACILLIN/TAZOBACTAM 4.5 GM in DEXTROSE 5% 100 ML IV SCH (05:01)
[2020-08-09 05:36] LABS: Hematocrit (blood only) 22.7 % (42-52); Hemoglobin 7.1 g/dL (14.0-18.0); Mean Corpuscular Hemoglobin 29.2 pg (25-34); Mean Corpuscular Hgb Conc 31.3 g/dL (32-36); Mean Corpuscular Volume 93.4 fL (80-100); Mean Platelet Volume 8.9 fL (7.4-10.4); Nucleated RBC # (auto) 0.05 K/uL (0-0); Nucleated RBC % (auto) 0.5 %; Platelet Count 225 K/uL (130-400); RDW Coefficient of Variation 19.4 % (11.5-14.5); RDW Standard Deviation 65.4 fL (36.4-46.3); Red Blood Count 2.43 M/uL (4.7-6.1); White Blood Count 8.64 K/uL (4.8-10.8)
--- NOTE | 2020-08-09 05:46 | Communication Note ---
Date of Service: August 09, 2020 Made aware by RN of a.m. hemoglobin of 7.1. No overt bleeding or abdominal complaints as per RN. Recheck H&H at 7 AM. Will relay to AM provider.
[2020-08-09 05:58] LABS: BUN Creatinine Ratio 16.1 (10-20); Calcium 8.3 mg/dl (8.5-10.1); Creatinine Clr Calc Pharmacy 37.2 ml/min; Est GFR (African American) 27.5 ml/min; Est GFR (Non-African American) 23.8 ml/min; Potassium 3.7 mmol/L (3.5-5.1)
[2020-08-09 06:48] LABS: Hemoglobin 8.8 g/dL (14.0-18.0)
[2020-08-09 07:23] LABS: Creatinine Urine Random 70.2 mg/dl; Protein Creatinine Ratio Urine 3.1 (0-0.2); Total Protein Urine Random 214.8 mg/dl (0-11.9)
[2020-08-09] MEDS ORDERED: Nursing to Pharmacy Communication SCH (09:15)
[2020-08-09 09:52] LABS: Thyroid Stimulating Hormone 95.2 uIu/ml (0.300-4.500)
--- NOTE | 2020-08-09 09:58 | Nephrology Progress Note ---
Date of Service August 09, 2020 Assessment & Plan (1) Disorders of fluid, electrolyte, and acid-base balance: patient with hypokalemia due to inadequate intake -Change to regular tube feeds with potassium -No need for k restricted tube feeds. -Monitor and supplement as needed. will continue to follow (2) Acute kidney failure: Patient with acute kidney injury likely due to ischemic ATN in setting of sepsis, Vanco toxicity and hypotension. Patient is oliguric making about 250 mL daily. We will stop colchicine for now. If patient has a gout attack, will use prednisone. Renally dose antibiotics for GFR less than 15 mL/min. We will give Ringer's lactate at 80 mL/h for 1 L. Monitor renal function daily. Admission and Anticipated Discharge Date Admission Date: July 07, 2020 Subjective Patient seen in follow-up for worsening renal function. Patient was admitted on July 06, 2020 and has had a complex hospital course status post laparotomy and gastrostomy tube. Patient also had fungemia. He had normal renal function at baseline. Creatinine started to increase on 08/06/2019 21-1.3 and has progressively increased to around 2.5. Patient is oliguric. He feels well denies any shortness of breath. Able to eat by mouth today 79 yo M s/p ex lap with repair of gastrostomy, was in ICU for a period of time receiving TPN, now able to use G tube for feeds. He was also tolerating PO until a few days ago when this was held out of concern for aspiration. Unfortunately a video swallow study was delayed 2/2 a code purple called as patient became more lethargic and hypoxic. He was placedon BIPAP with improvement clinically, however, has remained NPO since that time, relying solely on G tube feedings for input. Notable hypokalemia present with worsening renal function. Patient is awake and alert reporting no issues today. Denies pain. Review of Systems Review of Systems: All systems reviewed & are unremarkable except as noted in HPI & below Physical Exam Physical Exam: General exam: Appears comfortable, no acute distress HEENT: Pupils are equal and reactive to light Neck: No JVD, neck is supple trachea is midline Respiratory system: Clear breath sounds bilaterally. Gastrointestinal: Abdomen is soft, non distended, non tender, bowel sounds are present. gastrostomy tube present CVS: Regular rate and rhythm. No murmurs, rubs or gallops Musculoskeletal: No joint or muscle tenderness Extremities: Non tender, 1+ edema, peripheral pulses are present Neuro: Oriented, no tremors, no focal neurological deficits Skin: No rashes Results & Data ([facility]) Vital Signs (Past 12 Hours) Vital Signs Temp Pulse Pulse Pulse Resp BP BP 08/09/20 07:41 34.8 C L 55 L 20 116/55 L 08/09/20 04:02 36.7 C 53 L 21 109/62 08/09/20 03:10 50 L 16 08/08/20 23:59 54 L 08/08/20 23:45 36.5 C 56 L 20 108/62 08/08/20 22:38 53 L 18 Pulse Ox 08/09/20 07:41 96 08/09/20 04:02 96 08/09/20 03:10 93 08/08/20 23:59 08/08/20 23:45 96 08/08/20 22:38 94 Laboratory Results 08/09/20 04:59 08/08/20 08/09/20 11:41 04:59 WBC 8.64 RBC 2.43 L MCV 93.4 MCH 29.2 MCHC 31.3 L RDW Std Deviation 65.4 H RDW Coeff of Maximilian 19.4 H Plt Count 225 MPV 8.9 Phosphorus 3.7
[2020-08-09 10:04] LABS: T4 Free Thyroxine 0.22 ng/dl (0.8-1.6)
[2020-08-09] MEDS: ADVANCED PROBIOTIC 1250 MG CAPSULE PO SCH (10:11)
[2020-08-09] MEDS: PANTOprazole 40 MG in SYRINGE 0 ML IV SCH (10:15)
[2020-08-09] MEDS ORDERED: LEVOTHYROXINE SODIUM 88 MCG in SYRINGE 0 ML IV ONE (10:15)
[2020-08-09] MEDS: LACTATED RINGER'S 1,000 ML IV SCH ×2 (10:25→22:07)
--- NOTE | 2020-08-09 12:33 | Surgery Progress Note ---
Date of Service August 09, 2020 Assessment & Plan (1) Perforated viscus: Patient is not having any current issues w/ TEN via g-tube. Can trial increasing to 50cc/hr for today If speech has cleared patient for a diet he may trial this, otherwise would wait for their input first + bowel function Pt seen with Dr. Ware Admission and Anticipated Discharge Date Admission Date: July 07, 2020 Supervising Physician Co-Signing Physician Notes resting comfortably did not awaken Subjective Patient resting in bed. Subjective obtained from RN. He is tolerating his TEN without issue. He was started on a diet and apparently tolerated some this AM. Physical Exam Physical Exam: sleeping Respiratory: normal respiratory effort Results & Data ([facility]) Vital Signs (Past 12 Hours) Vital Signs Temp Pulse Pulse Pulse Resp BP BP 08/09/20 12:06 35.7 C L 08/09/20 11:22 35.4 C L 50 L 16 95/55 L 08/09/20 10:23 34.8 C L 08/09/20 08:00 63 08/09/20 07:41 34.8 C L 55 L 20 116/55 L 08/09/20 04:02 36.7 C 53 L 21 109/62 08/09/20 03:10 50 L 16 Pulse Ox 08/09/20 12:06 08/09/20 11:22 95 08/09/20 10:23 08/09/20 08:00 08/09/20 07:41 96 08/09/20 04:02 96 08/09/20 03:10 93 PG Care Time/CCT Total # of Minutes Spent Total Time Spent with Patient: Total time spent is greater than 50% in coordination of care (as documented) at patient's floor/unit and/or counseling patient: Coding Level of Care Code None Diagnoses Perforated viscus R19.8
[2020-08-09 19:38] LABS: Hematocrit (blood only) 27.7 % (42-52); Hemoglobin 8.7 g/dL (14.0-18.0); Mean Corpuscular Hemoglobin 29.4 pg (25-34); Mean Corpuscular Hgb Conc 31.4 g/dL (32-36); Mean Corpuscular Volume 93.6 fL (80-100); Nucleated RBC % (auto) 0.8 %; Platelet Count 240 K/uL (130-400); RDW Coefficient of Variation 19.7 % (11.5-14.5); RDW Standard Deviation 65.9 fL (36.4-46.3); Red Blood Count 2.96 M/uL (4.7-6.1); White Blood Count 11.62 K/uL (4.8-10.8)
[2020-08-09 19:56] LABS: BUN Creatinine Ratio 19.4 (10-20); Calcium 8.4 mg/dl (8.5-10.1); Creatinine Clr Calc Pharmacy 36.5 ml/min; Est GFR (African American) 26.9 ml/min; Est GFR (Non-African American) 23.2 ml/min; Potassium 3.7 mmol/L (3.5-5.1)
--- NOTE | 2020-08-09 20:03 | Hospitalist Progress Note ---
Date of Service August 09, 2020 Assessment & Plan (1) Septic shock: septic shock on admission 2/2 perforated viscus/peritonitis and fungemia with dislodged G-tube on admission. He underwent surgical correction of this, with an extended recovery in intensive care and requiring TPN. He received 3 days f Vanc/Zosyn then 10 days of merrem along with two weeks of caspofungin therapy. He was able to progress to tolerating PO and G-tube feeds. (2) Adrenal insufficiency: Possibly related to administration of the IV synthroid this morning. Stress dose hydrocortisone ordered, random cortisol pending. (3) Myxedema: Nonadministration of home levothyroxine this admission leading to symptomatic hypothyroidism. Initially noted low energy and cold intolerance which progressed to hypothermia-patricia hugger placed. Synthroid 88mcg IV administered and patient clinically declined as day went on with heart rate in the 50s/60s and BP in the 90s to low 100s systolic. Patient became more somnolent. Adrenal suppression suspected. Hydrocortisone started at 100mg IV q8h. [place]ocrine [place] [facility] gave guidance to give additional Levothyroxine 100mcg IV now in addition to continuation of steroids, continued hemodynamic support and daily TFTs with continued communication with her daily until he is improved. (4) Hypothyroidism: Plan as above. (5) Hypokalemia: repleted since yesterday, now within normal range. (6) Acute kidney failure: Per nephro acute kidney failure likely due to ischemic ATN in setting of sepsis, vanco toxicity and hypotension. Colchicine stopped. Antibiotics have been stopped. LR started at 80cc/hr. (7) Aspiration into airway: On 07/30 he was placed on cefepime overnight when he was found to be lethargic out of concern for possible aspiration. Cefepime was continued until 08/03, then stopped. He was given Rocephin after this for possible UTI (Urine culture negative) and this was switched to Zosyn on 08/06. A code purple on 08/05 was called secondary to lethargy and hypoxia again, chest imaging was unchanged, however, out of concern for aspiration Zosyn was added back again and he was made NPO. Video swallow study has not been able to be performed. The patient is recovering from a major surgery and illness and needs nutrition. Renal failure may be related to NPO status and possible dehydration. Will have nurse perform bedside swallow and reassess this to restart PO nutrition andreas. Will stop antibiotics after repeat procalcitonin as he has received more than enough at this point and remains hypoxic, mentally stable and afebrile. (8) Postoperative ileus: Resolved (9) Fungemia: Resolved-Completed the course of caspofungin (10) Diastolic CHF, chronic: Volume status is difficulty to appreciate as patient is very deconditioned. However, likely somewhat dehydrated given overall clinical picture and NPO status for several days. No diuretics on board at this time. Cont to monitor closely. IVF as needed. (11) Bradycardia: possibly related to adrenal insufficiency in setting of severe hypo thyroidism. Address this with treatment plan above. Cont telemetry monitoring. (12) COPD (chronic obstructive pulmonary disease): CPAP at night and as needed while sleeping during the day. (13) Anemia: multifactorial with etiologies including but not limiited to recent surgeries, prolonged hospitalizations with frequent phlebotomy and multiple chronic comorbidities. No indication for transfusion at this time, and no evidence of active bleeding. (14) Bowel perforation: s/p surgical repair as above. Cont PPI BID at this time. (15) Post-operative state: (16) DVT prophylaxis: SQ Heparin Patient is DNR/DNI Dispo-cont PCU for now. I spoke with the primary nurse, Nocturinist, ICU AUTO AIR CONDITIONING INSTALLER, and the daughter regarding the plan tonight after receiving advice from endocrinology. Per daughter, she would prefer to keep him in house and not transfer if we can treat him here. We discussed the pros and cons of this and decided to give it the night and see how he does in the morning. [place] [facility] [place], and if he declines, moving to an ICU setting would be appropriate for hemodynamic support. Karli Aguilar DO [facility] Hospitalist Admission and Anticipated Discharge Date Admission Date: July 07, 2020 Subjective 79 yo M s/p ex lap with repair of gastrostomy, was in ICU for a period of time receiving TPN, now able to use G tube for feeds. He was also tolerating PO until a few days ago when this was held out of concern for aspiration. Unfortunately a video swallow study was delayed 2/2 a montserrat evans called as patient became more lethargic and hypoxic (08/05). He was awake this morning and able to pass a bedside swallow study. He was given a diet and tolerated food. He was notably hypothermic and a patricia hugger was applied. He remained hypothermic throughout the day in addition to developing hypotension and some bradycardia. He is not confused per se, but is very somnolent and appears worse clinically today. On medication review it was noted that Synthroid was missing for most of the admission. TSH was checked and was 95 and FT4 was 0.2. Intravenous synthroid was dosed this morning, however, with the decline in clinical picture throughout the day, adrenal insufficiency was suspected and a random cortisol was drawn with initiation of stress dose steroids. I contacted Endocrine at [facility] [place] for advice. The options were to transfer to tertiary care for further care or to treat him overnight and see how he is responding. I spoke with the manager flight operations regarding the case. I then contacted the ICU provider court collections officer to discuss the case and the recommendations. I then contacted the patient's daughter, who is a working nurse at this facility. ROS was limited 2/2 patient's somnolence, however, he denied any symptoms at this time. Review of Systems Review of Systems: All systems reviewed & are unremarkable except as noted in Subjective Physical Exam Physical Exam: CONSTITUTIONAL: obese, vitals as above, NAD, deconditioned EYES: normal conjunctivae ENT: external ear and nose normal, MMM RESPIRATORY: clear without rhonchi, rales or wheezing. No respiratory distress. CARDIOVASCULAR: regular rate and rhythm, S1 and 2 heard without murmurs, gallops or rubs, no JVD, trace peripheral edema below the knees bilaterally. GASTROINTESTINAL: soft, abdominal surgical wounds are closed and healing well, G tube in place with no surrounding erythema or drainage. MUSCULOSKELETAL: significant generalized weakness throughout SKIN: warm and dry NEUROLOGIC: CN 2-12 grossly intact, weakness precludes in depth assessment, but overall appears grossly normal. +somnolent, moreso than yesterday Results & Data Results & Data ([facility]) Vital Signs (Past 12 Hours) Vital Signs Temp Pulse Pulse Pulse Resp BP BP 08/09/20 18:22 36.3 C L 60 20 97/63 L 08/09/20 16:03 08/09/20 16:00 61 08/09/20 15:24 35.9 C L 62 20 100/60 08/09/20 12:06 35.7 C L 08/09/20 11:22 35.4 C L 50 L 16 95/55 L 08/09/20 10:23 34.8 C L 08/09/20 08:00 63 Pulse Ox 08/09/20 18:22 93 08/09/20 16:03 92 08/09/20 16:00 08/09/20 15:24 89 L 08/09/20 12:06 08/09/20 11:22 95 08/09/20 10:23 08/09/20 08:00 Laboratory Results Short CBC 08/09/20 08/09/20 08/09/20 Range/Units 04:59 06:37 19:27 WBC 8.64 11.62 H (4.8-10.8) K/uL Hgb 7.1 L 8.8 L 8.7 L (14.0-18.0) g/dL Hct 22.7 L 28.0 L 27.7 L (42-52) % Plt Count 225 240 (130-400) K/uL BMP 08/09/20 08/09/20 04:59 19:21 Sodium 143 143 Potassium 3.7 D 3.7 Chloride 116 H 116 H Carbon Dioxide 18 L 19 L BUN 40 H 49 H Creatinine 2.48 H 2.53 H Glucose 107 H 117 H Calcium 8.3 L 8.4 L Medications Administered Current Inpatient Medications Dextrose (Dextrose 50% 50 Ml Syringe) 25 - 50 ml IV UD PRN; Protocol PRN Reason: Hypoglycemia Protocol Stop: 09/03/20 12:25 Glucagon (Glucagon For Inj 1 Mg Vial) 1 mg SQ UD PRN; Protocol PRN Reason: Hypoglycemia Protocol Stop: 09/03/20 12:25 Glucose (Glucose 10 Tabs/Tube) 4 - 8 tabs PO UD PRN; Protocol PRN Reason: Hypoglycemia Protocol Stop: 09/03/20 12:25 Glucose (Glucose 40% Gel 15 Gm Tube) 15 - 30 gm PO UD PRN; Protocol PRN Reason: Hypoglycemia Protocol Stop: 09/03/20 12:25 Heparin Sodium (Beef Lung) (Heparin 10 Unit/Ml 5 Ml Flush) 5 ml FLUSH PRN PRN PRN Reason: Flush Stop: 08/09/20 20:58 Last Admin: 07/30/20 13:29 Dose: 5 ml Documented by: Lactated Ringer's (Lr) 1,000 mls @ 80 mls/hr IV .[id number] [facility] Stop: 09/08/20 09:59 Last Admin: 08/09/20 10:25 Dose: 80 mls/hr Documented by: Hydrocortisone Sodium (Succinate 100 mg/ Syringe) 2 mls @ 4 mls/min IV Q8H [facility] Stop: 09/08/20 19:59 Levothyroxine Sodium 100 mcg/ (Syringe) 5 mls @ 2 mls/min IV DAILY@0900 [facility]; Protocol Stop: 09/09/20 08:59 Insulin Aspart (Insulin Aspart 100 Units/Ml 3 Ml Pen) 0 units SC ACHS [facility] Stop: 09/08/20 11:29 Last Admin: 08/09/20 16:50 Dose: Not Given Documented by: Lactobacillus Acidoph/Casei/Rhamnos (Advanced Probiotic 1250 Mg Capsule) 2 cap PO DAILY [facility] Stop: 09/05/20 08:59 Last Admin: 08/09/20 10:11 Dose: 2 cap Documented by: Levothyroxine Sodium (Levothyroxine Sodium 175 Mcg Tablet) 175 mcg PO DAILYBB [facility] Stop: 09/09/20 06:29 Miscellaneous (Carbohydrates For Hypoglycemia ) 15 - 30 gm PO UD PRN PRN Reason: Hypoglycemia Protocol Stop: 09/03/20 12:25 Nutritional Formula (Peptamen Intense Vhp 1.0 Ata 1,000 Ml Bag) 1,000 ml GT UD [facility]; Protocol Stop: 08/31/20 13:14 Last Admin: 08/05/20 17:30 Dose: 1,000 ml Documented by: Pantoprazole Sodium (Pantoprazole 40 Mg Tab) 40 mg PO BID [facility] Stop: 09/08/20 20:59 Sterile Water (Tube Feeding Water Flush) 100 ml GT Q6 OYSSI Stop: 09/03/20 17:59 Last Admin: 08/09/20 17:50 Dose: 100 ml Documented by: Tamsulosin HCl (Tamsulosin Hcl 0.4 Mg Cap) 0.4 mg PO HS [facility] Stop: 09/04/20 20:59 Last Admin: 08/08/20 20:40 Dose: 0.4 mg Documented by:
[2020-08-09 20:04] LABS: Basophils # (auto) 0.02 K/uL (0-0.2); Basophils % (auto) 0.2 %; Eosinophils # (auto) 0.35 K/uL (0-0.5); Immature Granulocytes # (auto) 0.61 K/uL (0.00-0.02); Immature Granulocytes % (auto) 5.2 %; Lymphocytes # (auto) 0.93 K/uL (1.2-3.4); Monocytes % (auto) 6.9 %; Neutrophils # (auto) 8.91 K/uL (1.4-6.5); Neutrophils % (auto) 76.7 %; Polychromasia 1+
[2020-08-09] MEDS: HYDROCORTISONE SOD 100 MG in SYRINGE 0 ML IV SCH (20:53)
[2020-08-09] MEDS: TAMSULOSIN HCL 0.4 MG CAP PO SCH (22:06)
[2020-08-09] MEDS: PANTOprazole 40 MG TAB PO SCH (22:06)
[2020-08-10] MEDS: TUBE FEEDING WATER FLUSH GT SCH ×6 (01:48→21:43)
[2020-08-10] MEDS: HYDROCORTISONE SOD 100 MG in SYRINGE 0 ML IV SCH ×3 (04:36→21:42)
[2020-08-10 04:44] LABS: Hematocrit (blood only) 27.6 % (42-52); Hemoglobin 8.6 g/dL (14.0-18.0); Mean Corpuscular Hemoglobin 29.2 pg (25-34); Mean Corpuscular Hgb Conc 31.2 g/dL (32-36); Mean Corpuscular Volume 93.6 fL (80-100); Mean Platelet Volume 8.6 fL (7.4-10.4); Nucleated RBC # (auto) 0.06 K/uL (0-0); Nucleated RBC % (auto) 0.4 %; Platelet Count 229 K/uL (130-400); RDW Standard Deviation 66.6 fL (36.4-46.3); Red Blood Count 2.95 M/uL (4.7-6.1); White Blood Count 12.89 K/uL (4.8-10.8)
[2020-08-10 05:05] LABS: BUN Creatinine Ratio 16.9 (10-20); Calcium 8.4 mg/dl (8.5-10.1); Creatinine Clr Calc Pharmacy 35.2 ml/min; Est GFR (African American) 25.8 ml/min; Est GFR (Non-African American) 22.2 ml/min; Magnesium 2.2 mg/dl (1.8-2.4); Potassium 4.2 mmol/L (3.5-5.1)
[2020-08-10 05:22] LABS: Phosphorus 3.1 mg/dl (2.5-4.9); T4 Free Thyroxine 0.35 ng/dl (0.8-1.6)
[2020-08-10] MEDS ORDERED: LEVOTHYROXINE SODIUM 175 MCG TABLET PO SCH (06:30)
[2020-08-10] MEDS: INSULIN ASPART 100 UNITS/ML 3 ML PEN SC SCH ×4 (08:14→21:44)
[2020-08-10] MEDS ORDERED: LEVOTHYROXINE SODIUM 100 MCG in SYRINGE 0 ML IV SCH (09:00)
--- NOTE | 2020-08-10 09:05 | Surgery Progress Note ---
Date of Service August 10, 2020 Assessment & Plan (1) Myxedema: keep tube feeds at 50 for now resume po when possible (2) Adrenal insufficiency: Admission and Anticipated Discharge Date Admission Date: July 07, 2020 Subjective discussed with daughter & nurse at bedside Results & Data ([facility]) Vital Signs (Past 12 Hours) Vital Signs Temp Pulse Pulse Pulse Resp BP Pulse Ox 08/10/20 07:20 37.0 C 59 L 16 110/51 L 90 08/10/20 06:04 37.1 C 08/10/20 03:39 69 28 H 91 08/10/20 03:00 37 C 69 22 118/52 L 95 08/10/20 01:32 36.7 C 08/09/20 23:00 36.5 C 63 66 20 112/57 L 94 PG Care Time/CCT Total # of Minutes Spent Total Time Spent with Patient: Total time spent is greater than 50% in coordination of care (as documented) at patient's floor/unit and/or counseling patient: Coding Level of Care Code None Diagnoses Myxedema E03.9 Adrenal insufficiency E27.40
[2020-08-10] MEDS: PANTOprazole 40 MG TAB PO SCH ×3 (10:00→21:43)
[2020-08-10] MEDS: ADVANCED PROBIOTIC 1250 MG CAPSULE PO SCH ×2 (10:00→10:19)
--- NOTE | 2020-08-10 10:00 | Nephrology Progress Note ---
Date of Service August 10, 2020 Assessment & Plan (1) Disorders of fluid, electrolyte, and acid-base balance: patient with hypokalemia due to inadequate intake -Change to regular tube feeds with potassium -No need for k restricted tube feeds. -Monitor and supplement as needed. will continue to follow (2) Acute kidney failure: Patient with acute kidney injury likely due to ischemic ATN in setting of sepsis, Vanco toxicity and hypotension. Patient is non oliguric making about 750 mL yesterday. he is off colchicine for now. If patient has a gout attack, will use prednisone. Renally dose antibiotics for GFR less than 15 mL/min. We will stop fluids today. Monitor renal function daily. Admission and Anticipated Discharge Date Admission Date: July 07, 2020 Subjective Patient is lethargic this morning. He is on BiPAP while sleeping which is baseline. He is in pain no shortness of breath. Patient making about 750 mm of urine yesterday. Creatinine slightly higher at 2.6 Review of Systems Review of Systems: All systems reviewed & are unremarkable except as noted in HPI & below Physical Exam Physical Exam: General exam: Appears comfortable, no acute distress HEENT: Pupils are equal and reactive to light Neck: No JVD, neck is supple trachea is midline Respiratory system: Clear breath sounds bilaterally. Gastrointestinal: Abdomen is soft, non distended, non tender, bowel sounds are present CVS: Regular rate and rhythm. No murmurs, rubs or gallops Musculoskeletal: No joint or muscle tenderness Extremities: Non tender, no edema, peripheral pulses are present Neuro: Oriented, no tremors, no focal neurological deficits Skin: No rashes Results & Data ([facility]) Vital Signs (Past 12 Hours) Vital Signs Temp Pulse Pulse Pulse Resp BP Pulse Ox 08/10/20 07:20 37.0 C 59 L 16 110/51 L 90 08/10/20 06:04 37.1 C 08/10/20 03:39 69 28 H 91 08/10/20 03:00 37 C 69 22 118/52 L 95 08/10/20 01:32 36.7 C 08/09/20 23:00 36.5 C 63 66 20 112/57 L 94 Laboratory Results 08/10/20 04:34 08/09/20 08/10/20 08/10/20 19:27 04:34 04:34 WBC 11.62 H 12.89 H RBC 2.96 L 2.95 L MCV 93.6 93.6 MCH 29.4 29.2 MCHC 31.4 L 31.2 L RDW Std Deviation 65.9 H 66.6 H RDW Coeff of Maximilian 19.7 H 20.0 H Plt Count 240 229 MPV 9.0 8.6 Phosphorus 3.1
[2020-08-10] MEDS: LEVOTHYROXINE SODIUM 100 MCG in SYRINGE 0 ML IV SCH (10:01)
--- NOTE | 2020-08-10 11:18 | Hospitalist Progress Note ---
Date of Service August 10, 2020 Assessment & Plan (1) Acute encephalopathy: Obtunded today, likely a combination of deconditioning, poor reserve in setting of myxedema coma, adrenal insufficiency, mixed acid bases disorder and renal failure. 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 Initially noted low energy and cold intolerance which progressed to hypothermia-patricia hugger placed. Synthroid 88mcg IV administered and patient clinically declined as day went on with heart rate in the 50s/60s and BP in the 90s to low 100s systolic. Adrenal suppression suspected. Hydrocortisone started at 100mg IV q8h. Endocrine contacted at [facility] [place]. Foley gave guidance to give Levothyroxine 200mcg IV load with continued stress dose steroids, continued hemodynamic support and daily TFTs with continued communication with her daily until he is improved. (4) Adrenal insufficiency: Cont hydrocortisone until he improves clinically then taper. (5) Septic shock: septic shock on admission 04/08 perforated viscus/peritonitis and fungemia with dislodged G-tube on admission. He underwent surgical correction of this, with an extended recovery in intensive care and requiring TPN. He received 3 days f Vanc/Zosyn then 10 days of merrem along with two weeks of caspofungin therapy. He was able to progress to tolerating PO and G-tube feeds. (6) Hypothyroidism: Plan as above. (7) Hypokalemia: repleted since yesterday, now within normal range. (8) Acute kidney failure: Per nephro acute kidney failure likely due to ischemic ATN in setting of sepsis, vanco toxicity and hypotension. Colchicine stopped. LR stopped this morning out of concern for volume overload. Discussed bicarb drip wt nephro. (9) Aspiration into airway: On 07/30 he was placed on cefepime overnight when he was found to be lethargic out of concern for possible aspiration. Cefepime was continued until 08/03, then stopped. He was given Rocephin after this for possible UTI (Urine culture negative) and this was switched to Zosyn on 08/06. A code purple on 08/05 was called secondary to lethargy and hypoxia again, chest imaging was unchanged, however, out of concern for aspiration Zosyn was added back again and he was made NPO. Video swallow study has not been able to be performed. The patient is recovering from a major surgery and illness and needs nutrition. Renal failure may be related to NPO status and possible dehydration. Initially stopped antibiotics, but these have been restarted empirically in setting of myxedema coma. NPO because of mental status. Appreciate flakeboard line tender augmenting tube feeds and G tube hydration to support him at this time. IVF not preferred with ongoing edema. (10) Postoperative ileus: Resolved (11) Fungemia: Resolved-Completed the course of caspofungin (12) Diastolic CHF, chronic: Volume status is difficulty to appreciate as patient is very deconditioned. However, likely somewhat dehydrated given overall clinical picture and NPO status for several days. No diuretics on board at this time in setting of renal failure. Cont to monitor closely. (13) Bradycardia: hypokalemia/lyte abnormalites/adrenal insufficiency contributing? Cont to monitor for now. (14) COPD (chronic obstructive pulmonary disease): CPAP at night and as needed while sleeping during the day. (15) Anemia: multifactorial with etiologies including but not limiited to recent surgeries, prolonged hospitalizations with frequent phlebotomy and multiple chronic comorbidities. No indication for transfusion at this time, and no evidence of active bleeding. (16) Bowel perforation: s/p surgical repair as above. Cont PPI BID at this time. (17) Post-operative state: (18) DVT prophylaxis: SQ Heparin Patient is DNR/DNI Dispo-cont PCU for now. Family conference took place today. Will try an additional night of effort to improve his clinical condition. If this is unsuccessful, family is resolved to transition him to palliative measures with the goal of no suffering. His and two daughters and EDWARD were a part of the face to face conversation today. [facility]li [facility] and Anticipated Discharge Date Admission Date: July 07, 2020 Subjective 79 yo M s/p ex lap with repair of gastrostomy, was in ICU for a period of time receiving TPN, now able to use G tube for feeds. He was also tolerating PO until a few days ago when this was held out of concern for aspiration. Unfortunately a video swallow study was delayed 2/2 a montserrat evans called as patient became more lethargic and hypoxic (08/05). The patient was obtunded for most of the day. Called in family for a disucssion about transition to comfort measures. the underlying endocrine issues are potentially reversible and because he became somewhat more alert as the day progressed, we decided to give him additional time on the BIPAP and on treatment. The patient was able to provide me with a limited ROS towards the end of the day and confirmed that he was not in pain, and that he did not feel SOB. Review of Systems Review of Systems: Other (limited ROS but all negative-no CP, SOB, pain, discomfort at this time.................. The patient was to weak to vocalize any words) Physical Exam Physical Exam: CONSTITUTIONAL: obese, vitals as above, NAD, deconditioned EYES: normal conjunctivae ENT: external ear and nose normal, MMM RESPIRATORY: clear without rhonchi, rales or wheezing. No respiratory distress. CARDIOVASCULAR: regular rate and rhythm, S1 and 2 heard without murmurs, gallops or rubs, no JVD, trace peripheral edema below the knees bilaterally. GASTROINTESTINAL: soft, abdominal surgical wounds are closed and healing well, G tube in place with no surrounding erythema or drainage. MUSCULOSKELETAL: significant generalized weakness throughout SKIN: warm and dry NEUROLOGIC: obtunded Results & Data Results & Data ([facility]) Vital Signs (Past 12 Hours) Vital Signs Temp Pulse Pulse Pulse Pulse Resp BP 08/10/20 11:07 36.6 C 61 20 120/51 L 08/10/20 08:00 66 08/10/20 07:20 37.0 C 59 L 16 110/51 L 08/10/20 06:04 37.1 C 08/10/20 03:39 69 28 H 08/10/20 03:00 37 C 69 22 118/52 L 08/10/20 01:32 36.7 C Pulse Ox 08/10/20 11:07 91 08/10/20 08:00 08/10/20 07:20 90 08/10/20 06:04 08/10/20 03:39 91 08/10/20 03:00 95 08/10/20 01:32
[2020-08-10] MEDS ORDERED: LEVOTHYROXINE SODIUM 100 MCG in SYRINGE 0 ML IV ONE (11:30)
[2020-08-10] MEDS ORDERED: PEPTAMEN INTENSE VHP 1.0 CAL 1,000 ML BAG GT SCH (13:20)
[2020-08-10 13:35] LABS: Base Excess ABG -9.9 mEq/L (-9-1.8); HCO3 ABG 18 mmol/L (19-24); Oxygen Saturation ABG 93.9 % (90-95); PCO2 ABG 51 mmHg (35-46); PO2 ABG 75 mmHg (80-95)
[2020-08-10 13:37] LABS: Allen Test Pos (Pos)
[2020-08-10 13:38] LABS: pH ABG 7.18 (7.35-7.45)
--- NOTE | 2020-08-10 14:50 | Critical Care Consultation ---
Date of Consultation August 10, 2020 Assessment & Plan (1) Mixed acid base balance disorder: 79-year-old male with a complex medical history currently in the hospital for over a month due to volvulus and bowel perforation. His course was complicated with fungemia secondary to TPN and hypothyroidism. Overall, his prognosis is quite poor. He is currently listed as a DNR/DNI. He has a mixed acid-base disorder consistent with acute hypercapnic respiratory failure and acute metabolic acidosis. Would recommend institution of a bicarbonate drip. Continue BiPAP therapy. Nephrology is following the patient. He p.o. intake is obviously poor. CT head imaging from 08/05/2020 with no acute findings. Recommend considering repeating chest imaging to evaluate for signs of aspiration pneumonia. He does have a mild leukocytosis. Recommend further evaluation for infection including a urinalysis, blood cultures and sputum cultures. Continue with IV levothyroxine and stress dose steroids given the concerns of myxedema coma. Can consider the addition of IV T4. ICU will sign off at this time. We are certainly available and happy to assist in care if needed. I recommend a goals of care discussion and palliative care consultation. (2) Hypothyroidism: (3) Acute encephalopathy: (4) Renal failure, acute: (5) Perforated viscus: History of Present Illness Reason for Consultation: Altered mental status Attending Physician: Karli Aguilar, DO History of Present Illness 79-year-old male who is currently hospitalized due to ongoing complications from a volvulus status post bowel resection. ICU was consulted due to altered mental status. Patient is unable to give any history. I was abl e to review the chart and discussed with the bedside nurse and hospitalist. The patient has been obtunded for the majority of the day. I recommended an ABG. ABG completed today with a pH of 7.18. PCO2 51 and PO2 75. Notably an ABG was checked on 08/05/2020 and his pH at that time was 7.18 with a PCO2 of 65. His bicarbonate level is 20. He also has evidence of worsening LIZZ with a creatinine of 2.62. The patient is currently on BiPAP therapy and he is nonresponsive to my verbal commands. I did attempt a sternal rub and the patient still did not rouse. Stress test steroids were started yesterday due to concerns of myxedema coma. He is also on IV levothyroxine as his TSH was found to be very elevated. Allergies Allergy/AdvReac Type Severity Reaction Status Date / Time No Known Allergies Allergy Verified 07/06/20 21:30 Home Medications Medication Instructions Recorded Confirmed Type amlodipine 5 mg tablet 5 mg PO QAM 11/20/18 07/10/20 History aspirin 81 mg tablet,delayed 81 mg PO QAM 11/20/18 07/10/20 History release simvastatin 20 mg tablet 20 mg PO HS tab 11/20/18 07/10/20 History bumetanide 1 mg tablet 1.5 mg PO BID tab 01/08/19 07/10/20 History cholecalciferol (vitamin D3) 25 1,000 units PO QAM 01/08/19 07/10/20 History mcg (1,000 unit) capsule colchicine 0.6 mg capsule 0.6 mg PO QAM 01/08/19 07/10/20 History CPAP Machine #1 ea 02/07/19 07/10/20 Rx Oxygen Home #1 ea 05/13/19 07/10/20 Rx calcium carbonate [Tums] 200 mg PO BID PRN 05/16/20 07/10/20 History levothyroxine 175 mcg PO DAILYBB 06/13/20 07/10/20 History colchicine [Colcrys] 0.6 mg PO BID 30 Days #60 tab 07/04/20 07/10/20 Rx pantoprazole 40 mg PO QAM 30 Days #30 tab 07/04/20 07/10/20 Rx tamsulosin [Flomax] 0.4 mg PO HS #30 cap 07/04/20 07/10/20 Rx L.acidop,nury,lac,rha-B.lac,taz 2 cap PO QAM 07/06/20 07/10/20 History [Advanced Probiotic] Patient History Medical History Acute kidney failure on 06/14/20 Anemia Dyslipidemia GERD (gastroesophageal reflux disease) HTN (hypertension) Hx of gout Hypothyroidism Leukocytosis Neuropathy Obesity On home oxygen therapy 4 LPM qHS Restrictive lung disease Sleep apnea BiPAP + O2 at 4 LPM Venous insufficiency Surgical History H/O exploratory laparotomy (07/06/20) Exploratory Laparotomy, Repair of Gastrostomy, Replacement of Gastrostomy. Tube, and Abdominal Washout. - Shola Damon, History of cataract surgery RT. 06/03/20. [facility]. 2mg versed, 50mcg fentanyl. no issues reported. History of colonoscopy S/P laparotomy (06/26/20) Laparoscopy converted to laparotomy, resection of descending sigmoid colon, partial rectal resection, gastrostomy - Hugo Ware MD, FACS Family History Father Hypertension Mother Lung cancer Aunt Diabetes Aunt Diabetes Other No family history of adverse response to anesthesia No significant family history Social History Smoking Status: Never smoker Second Hand Exposure: No; Hx Alcohol Use: No Hx Substance Use: No Preferred Language: [place] Communication Ability: Effective Visual Impairment: No Limitations Senior Investment Manager Required: No Beliefs That Will Affect Care: None marital status: Current Living Situation: Spouse 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 Mild crackles. Cardiovascular: Rate/Rhythm: regular rate, regular rhythm and + bradycardic Extremities: + edema Gastrointestinal (Abdomen): normal bowel sounds, soft, nontender, no hepatosplenomegaly Musculoskeletal: no cyanosis or clubbing, extremities motor strength 5/5 Skin: no rashes, warm and dry Neurologic: Obtunded Psychiatric: Unable to assess Results & Data Results & Data ([facility]) Vital Signs (Past 12 Hours) Vital Signs Temp Pulse Pulse Pulse Pulse Resp BP 08/10/20 13:03 97.3 F L 59 L 17 08/10/20 11:07 97.9 F 61 20 120/51 L 08/10/20 08:00 66 08/10/20 07:20 98.6 F 59 L 16 110/51 L 08/10/20 06:04 98.8 F 08/10/20 03:39 69 28 H 08/10/20 03:00 98.6 F 69 22 118/52 L BP Pulse Ox 08/10/20 13:03 108/69 94 08/10/20 11:07 91 08/10/20 08:00 08/10/20 07:20 90 08/10/20 06:04 08/10/20 03:39 91 08/10/20 03:00 95 Vital signs, labs and imaging reviewed Coding Level of Care Code 13080 Inpt Consult Level 4 Diagnoses Mixed acid base balance disorder E87.4 Hypothyroidism E03.9 Acute encephalopathy G93.40 Renal failure, acute N17.9 Perforated viscus R19.8
[2020-08-10] MEDS ORDERED: STAT IV STA (16:16)
[2020-08-10] MEDS ORDERED: MoRPHine SULFATE 2 MG/ML CARP IV PRN (16:30)
[2020-08-10] MEDS ORDERED: PIPERACILL/TAZOBAC CONSULT ACTIVE PRN (16:41)
[2020-08-10] MEDS ORDERED: PIPERACILLIN/TAZOBACTAM 4.5 GM in DEXTROSE 5% 100 ML IV ONE (17:00)
[2020-08-10] MEDS ORDERED: SODIUM BICARBONATE 8.4% 150 MEQ in DEXTROSE 5% 1,000 ML IV SCH (17:00)
--- NOTE | 2020-08-10 17:50 | CT Scan Report ---
CT chest diagnostic wo con CLINICAL HISTORY: rule out acute process COMPARISON STUDY: August 05, 2020 CT DOSE: 2151.60 mGy.cm TECHNIQUE: CT of the thorax was performed from the thoracic inlet to the lung bases. Images are revi ewed in the axial, sagittal, and coronal planes. IV contrast was not administered for this examinatio n. A dose lowering technique was utilized adhering to the principles of ALARA. FINDINGS: There is no axillary, supra clavicle or internal mammary lymphadenopathy seen. Mediastinal lymph nodes are not enlarged. Calcifications of the mediastinal lymph nodes are again see n.. Thyroid gland is not well seen. Esophagus is normal. There is mild ectasia of ascending and descending portion of thoracic aorta measuring up to 4.1 cm wi thin its ascending portion. Scattered calcifications of aortic wall are seen. Main pulmonary arteries measuring 3.3 cm in diameter, dilated which could be seen in pulmonary hypert ension. Heart is normal in size without pericardial effusion. Calcifications of the coronary arteries and aor tic anulus are again seen. Tracheobronchial tree is patent. Bilateral lung volumes remain decreased. Redemonstration of small bilateral pleural effusion associat ed with atelectasis at the dependent portions of bilateral lower lobes. Findings are stable since rec ent prior study. Hazy opacities are seen within dependent portion of bilateral lower lobes might be related to low ins piratory effort. Overall evaluation of pulmonary parenchyma is significantly limited due to motion artifact. Overall f indings are stable since prior. Limited evaluation of upper abdominal viscera shows unchanged hypoattenuating lesion within right lob e of the liver, stable since prior study performed 5 days ago. Osseous structures: Degenerative changes of the spine. Stable sclerotic lesion within thoracic spine, unchanged since recent prior study. IMPRESSION: 1. Stable consolidative opacities at dependent portions of bilateral lower lobes are not significant ly changed since recent prior study performed on August 05, 2020 and on June 18, 2020 and could represe nt atelectasis or pneumonia. Aspiration pneumonia might also be included in differential diagnosis. 2. Stable partially visualized hypoattenuating lesions within the right lobe of the liver, similar t o prior study and incompletely evaluated on current nondedicated exam. 3. Stable mild ectasia of ascending and descending thoracic aorta. Atherosclerosis. 4. Stable sclerotic lesion within thoracic spine which might represent enostosis or blastic metastat ic lesion. Please correlate with prior history. 5. Mild dilatation of main pulmonary artery which could be seen in pulmonary hypertension. 6. Calcifications of mediastinal lymph nodes might represent sequela from remote granulomatous proce ss. ACT 112: Negative or not required by law. The above report was generated using voice recognition software. It may contain grammatical, syntax o r spelling errors. Electronically signed by: Ashley Gentile DO 08/10/2020 5:49 PM
--- NOTE | 2020-08-10 17:55 | CT Scan Report ---
CT head/brain wo con CLINICAL HISTORY: altered mental status, rule out IAC COMPARISON STUDY: August 05, 2020 TECHNIQUE: Axial CT of the brain is performed from the vertex to the skull base. IV contrast was not administered for this examination. A dose lowering technique was utilized adhering to the principles of ALARA. CT DOSE: FINDINGS: No intra or extra-axial mass lesions are visualized. There is no CT evidence of acute cortical infarc tion. There is no evidence of midline shift. There is no acute hemorrhage. No acute depressed calvar ial fractures are visualized. There are patchy white matter hypodensities likely on a small vessel basis. Mild atrophic changes of brain parenchyma are unchanged since recent prior study and associated with ex vacuo dilatation of ventricles. Prominent mucous polyp is again seen within right maxillary sinus. The rest of visualized paranasal s inuses and left mastoid air cells are patent and well-aerated. Redemonstration of the partial opacifi cation within right mastoid air cells is again seen. IMPRESSION: 1. No acute intracranial hemorrhage, no midline shift or space occupying lesions. 2. Atrophic changes of brain parenchyma associated with ex vacuo dilatation of ventricles. 3. Redemonstration of the mucous polyp within right maxillary sinus and partial opacification/possib le mastoiditis of the right mastoid air cells. ACT 112: Negative or not required by law. The above report was generated using voice recognition software. It may contain grammatical, syntax o r spelling errors. Electronically signed by: Ashley Gentile DO 08/10/2020 5:53 PM
[2020-08-10] MEDS: TAMSULOSIN HCL 0.4 MG CAP PO SCH (21:43)
[2020-08-10] MEDS: PIPERACILLIN/TAZOBACTAM 4.5 GM in DEXTROSE 5% 100 ML IV SCH (22:30)
[2020-08-10 22:39] LABS: Base Excess ABG -9.1 mEq/L (-9-1.8); HCO3 ABG 19 mmol/L (19-24); Oxygen Saturation ABG 98.3 % (90-95); PCO2 ABG 48 mmHg (35-46); PO2 ABG 134 mmHg (80-95)
[2020-08-10 22:41] LABS: Allen Test Pos (Pos)
[2020-08-10 22:53] LABS: Calcium 8.4 mg/dl (8.5-10.1); Creatinine Clr Calc Pharmacy 34.7 ml/min; Est GFR (Non-African American) 21.5 ml/min; Potassium 3.7 mmol/L (3.5-5.1)
[2020-08-11] MEDS: TUBE FEEDING WATER FLUSH GT SCH ×6 (01:55→22:42)
[2020-08-11] MEDS: HYDROCORTISONE SOD 100 MG in SYRINGE 0 ML IV SCH ×3 (04:04→20:53)
[2020-08-11 05:26] LABS: Appearance Urine Cloudy (Clear); Bilirubin Urine Negative (Negative); Blood Urine 3+ (Negative); Color Urine Yellow; Glucose Urine UA Negative (Negative); Ketones Urine Trace (Negative); Leukocyte Esterase Urine 2+ (Negative); Nitrite Urine Negative (Negative); Protein Urine 2+ (Negative); Specific Gravity Urine 1.021 (1.000-1.030); Urobilinogen Urine Negative (Negative); WBC Urine Automated >30 /hpf (0-5)
[2020-08-11] MEDS: PIPERACILLIN/TAZOBACTAM 4.5 GM in DEXTROSE 5% 100 ML IV SCH ×3 (05:49→22:53)
[2020-08-11 06:27] LABS: RBC Urine Automated >30 /hpf (0-4)
[2020-08-11 06:38] LABS: Bacteria Urine Automated 1+ (Negative)
[2020-08-11 06:41] LABS: Renal Epithelial Cells Urine 0-5 /lpf (0-5)
[2020-08-11 07:03] LABS: Hemoglobin 8.1 g/dL (14.0-18.0); Mean Corpuscular Hemoglobin 29.8 pg (25-34); Mean Corpuscular Hgb Conc 31.2 g/dL (32-36); Mean Corpuscular Volume 95.6 fL (80-100); Mean Platelet Volume 9.1 fL (7.4-10.4); Nucleated RBC # (auto) 0.06 K/uL (0-0); Nucleated RBC % (auto) 0.5 %; Platelet Count 264 K/uL (130-400); RDW Coefficient of Variation 20.4 % (11.5-14.5); RDW Standard Deviation 70.5 fL (36.4-46.3); Red Blood Count 2.72 M/uL (4.7-6.1); White Blood Count 12.46 K/uL (4.8-10.8)
[2020-08-11 07:32] LABS: BUN Creatinine Ratio 19.2 (10-20); Calcium 8.7 mg/dl (8.5-10.1); Creatinine Clr Calc Pharmacy 32.8 ml/min; Est GFR (Non-African American) 19.8 ml/min; Potassium 3.8 mmol/L (3.5-5.1)
[2020-08-11 07:36] LABS: T4 Free Thyroxine 0.57 ng/dl (0.8-1.6)
[2020-08-11] MEDS ORDERED: Nursing to Pharmacy Communication SCH (08:00)
[2020-08-11] MEDS ORDERED: INSULIN ASPART 100 UNITS/ML 3 ML PEN SC ONE (08:30)
[2020-08-11] MEDS: INSULIN ASPART 100 UNITS/ML 3 ML PEN SC SCH ×3 (08:34→18:18)
--- NOTE | 2020-08-11 08:56 | Surgery Progress Note ---
Date of Service August 11, 2020 Assessment & Plan (1) Post-operative state: no acute surgical issue will advance tube feeds to 60 cc/hour. goal of 70 later today or tomorrow. Admission and Anticipated Discharge Date Admission Date: July 07, 2020 Subjective pt seen. daughter at bedside. updated via daughter. pt found to be severly hypothyroid. now acidotic. miguel tube feeds at 50 cc/hour with no issue. Physical Exam Physical Exam: obtunded. cpap on abd: soft. nt. g-tube in place Results & Data ([facility]) Vital Signs (Past 12 Hours) Vital Signs Temp Pulse Pulse Pulse Resp BP BP 08/11/20 07:12 36.7 C 70 18 111/54 L 08/11/20 04:24 36.7 C 63 28 H 101/55 L 08/11/20 03:33 61 23 08/11/20 03:20 62 12 08/11/20 00:16 36.0 C L 67 24 105/47 L 08/10/20 23:59 52 L 08/10/20 22:38 57 L 20 Pulse Ox 08/11/20 07:12 92 08/11/20 04:24 96 08/11/20 03:33 95 08/11/20 03:20 95 08/11/20 00:16 96 08/10/20 23:59 08/10/20 22:38 92 PG Care Time/CCT Total # of Minutes Spent Total Time Spent with Patient: Total time spent is greater than 50% in coordination of care (as documented) at patient's floor/unit and/or counseling patient: Coding Level of Care Code None Diagnoses Post-operative state Z98.890
[2020-08-11] MEDS: ADVANCED PROBIOTIC 1250 MG CAPSULE PO SCH (09:42)
[2020-08-11] MEDS: PANTOprazole 40 MG TAB PO SCH ×2 (09:42→22:41)
[2020-08-11] MEDS: LEVOTHYROXINE SODIUM 100 MCG in SYRINGE 0 ML IV SCH (09:42)
[2020-08-11] MEDS ORDERED: FUROSEMIDE 40 MG in SYRINGE 0 ML IV ONE (16:09)
--- NOTE | 2020-08-11 16:53 | Hospitalist Progress Note ---
Date of Service i August 11, 2020 Assessment & Plan (1) Septic shock: Altered mental status; possibly metabolic encephalopathy - resolved, today Ox3 Septic shock on admission - resolved Perforated viscus/peritonitis, fungemia/dislodged G-tube on admission 1) Recurrent sigmoid volvulus with exp laparotomy, sigmoidectomy and gastrostomy S/P 2 decompressive colonoscopies with sigmoidectomy and/G-tube placement 06/26/20 2) Readmission on 07/07/2020 with unresponsiveness, abdominal pain, severe pain. X-ray on admission showed large amount of free air under diaphragm-dislodged G- tube causing peritonitis 07/07/2020 :S/P Exp Laparotomy /replacement of G-tube with large inflated balloon covering the pylorus to prevent dislodgment; extubated on 07/14/20 History of chronic diastolic heart failure extubation History of COPD History of hypertension History of hypothyroid History of gout History of Sleep apnea Patient is 79-year-old male with above comorbidities presented with bowel perforation. Patient underwent 2 decompressive colonoscopies performed this admission with sigmoidectomy and/G-tube placement. He have had a complicated course during this hospitalization. Did have candy developed sepsis and have completed 14 days of treatment with caspofungin. Of note, on 08/05 code purple was called due to patient being lethargic and hypoxic. CT head was obtained which did not reveal any acute findings. CT abdomen/pelvis was obtained which did not reveal any new findings. CT chest was obtained which revealed concern for possible consolidative opacities at dependent portions of bilateral lower lobes is not significantly changed since prior study performed more than 6 weeks ago which might represent atelectasis or pneumonia. There was concern for possible aspiration episode. He remains NPO. Nutrition is on board. Will continue with Zosyn at this time. 08/09 patient was found to have adrenal insufficiency and symptomatic hypothyroidism that led to further clinical decline. Acute hypoxic/hypercapnic respiratory failure Mixed acid-base balance disorder Myxedema coma Adrenal insufficient Acute renal failure Acute diastolic heart failure Overall prognosis remains poor. Critical care evaluated the patient and signed off and recommended goals of care discussion with palliative team. Currently patient remains on the BiPAP. Hemodynamically stable. Oliguric renal failure. 08/10: Blood and urine cultures were obtained. Negative thus far. Patient remains on Zosyn for possible aspiration episode. We will continue with cortisone 100 mg every 8 H. Continue with levothyroxine 100 mcg daily. Did have extensive discussion with the family and daughter Soniya at bedside today. Overall prognosis remains poor. We will continue to assess daily to decide regarding further course of action. Palliative medicine has been consulted for possible transition to comfort if patient does not improve. IV Lasix 40 mg have been ordered. Ibanez catheter is in place for accurate ins and outs. We will repeat ABG later today. Call daughter Soniya for any update. Nutrition Dysphagia Was started on TPN 07/15 for roughty two weeks. Was on purred until 08/05/20. However given concern with aspirtion on 08/05, patient was made NPO. Nutirion is on board. Continue with tube feeds. Candidal sepsis - resolved Blood culture: On 07/07/2020: Shantell Repeat blood culture on 07/09/2020: No growth No need for ANASTASIA at this time without persistent bloodstream infection. ID consult-appreciated Completed 14 days treatment of caspofungin (last dose 07/23/20) Central line discontinued (2) Postoperative ileus: Resolved (3) Fungemia: Resolved Candidal sepsis Blood culture: On 07/07/2020: Shantell Repeat blood culture on 07/09/2020: No growth Cont Caspofungin for 14 day course. No need for ANASTASIA at this time without persistent bloodstream infection. Completed the course of caspofungin (4) Diastolic CHF, chronic: Volume status stable (5) Bradycardia: avoid AV douglas blocking drug brief episodes of bradycardia noted while coughing , recovered quickly (6) COPD (chronic obstructive pulmonary disease): CPAP at night (7) Obesity hypoventilation syndrome: (8) Anemia: Possible anemia of chronic disease, Hgb of 8.9 transfusion criteria for hemoglobin less than 7 or any evidence of active bleeding (9) Post-operative state: (10) DVT prophylaxis: SQ Heparin Patient is DNR/DNI Admission and Anticipated Discharge Date Admission Date: July 07, 2020 Subjective Patient remains on the BiPAP. Minimally responsive. Unable to obtain full review of system. Does not appear to be in any distress. Daughter at bedside. Review of Systems Review of Systems: Unobtainable due to reduced consciousness Physical Exam Physical Exam: General: Somnolent, currently on the BiPAP HENT: NCAT, MMM, EOMI Eyes: PERRLA Neck: Supple, normal range of motion CVS: normal rate and rhythm Resp: b/l decrease breath sounds Abdomen: Soft, incisions c/d/i, G-tube in place, distended but non-tender Extremities: 2+ LE edema Neuro: uable to examine at patient is somnolent Skin: warm and dry, no rashes/lesions/errythema MSK: normal ROM, no joint swelling/erythema Results & Data Results & Data ([facility]) Vital Signs (Past 12 Hours) Vital Signs Temp Pulse Pulse Resp BP Pulse Ox 08/11/20 14:39 35.7 C L 08/11/20 13:39 68 19 93 08/11/20 11:25 36.6 C 68 18 112/54 L 93 08/11/20 10:30 70 21 95 08/11/20 08:00 71 08/11/20 07:12 36.7 C 70 18 111/54 L 92
[2020-08-11 21:17] LABS: Base Excess ABG -8.5 mEq/L (-9-1.8); HCO3 ABG 20 mmol/L (19-24); Oxygen Saturation ABG 91.1 % (90-95); PCO2 ABG 59 mmHg (35-46); PO2 ABG 59 mmHg (80-95)
[2020-08-11 21:23] LABS: Allen Test Pos (Pos)
[2020-08-11 21:30] LABS: pH ABG 7.15 (7.35-7.45)
[2020-08-11] MEDS ORDERED: ALBUT/IPRATROP 3MG/0.5MG NEB 3 ML VIAL NEB STA (22:17)
[2020-08-11] MEDS: TAMSULOSIN HCL 0.4 MG CAP PO SCH (22:41)
[2020-08-11 22:44] LABS: Base Excess ABG -8.5 mEq/L (-9-1.8); HCO3 ABG 20 mmol/L (19-24); PCO2 ABG 56 mmHg (35-46); PO2 ABG 77 mmHg (80-95)
[2020-08-11 22:45] LABS: Allen Test Pos (Pos)
[2020-08-11 22:46] LABS: pH ABG 7.17 (7.35-7.45)
[2020-08-12] MEDS: INSULIN ASPART 100 UNITS/ML 3 ML PEN SC SCH ×3 (00:08→12:32)
[2020-08-12] MEDS: TUBE FEEDING WATER FLUSH GT SCH ×4 (01:30→14:22)
[2020-08-12] MEDS: HYDROCORTISONE SOD 100 MG in SYRINGE 0 ML IV SCH ×2 (04:31→12:33)
[2020-08-12] MEDS: PIPERACILLIN/TAZOBACTAM 4.5 GM in DEXTROSE 5% 100 ML IV SCH ×2 (06:05→14:22)
[2020-08-12 06:46] LABS: Hematocrit (blood only) 22.9 % (42-52); Hemoglobin 7.3 g/dL (14.0-18.0); Mean Corpuscular Hemoglobin 29.4 pg (25-34); Mean Corpuscular Hgb Conc 31.9 g/dL (32-36); Mean Corpuscular Volume 92.3 fL (80-100); Mean Platelet Volume 8.6 fL (7.4-10.4); Nucleated RBC # (auto) 0.04 K/uL (0-0); Nucleated RBC % (auto) 0.4 %; Platelet Count 244 K/uL (130-400); RDW Coefficient of Variation 20.2 % (11.5-14.5); RDW Standard Deviation 66.7 fL (36.4-46.3); Red Blood Count 2.48 M/uL (4.7-6.1); White Blood Count 9.96 K/uL (4.8-10.8)
--- NOTE | 2020-08-12 07:06 | XRay Report ---
XR chest 1V portable HISTORY: 79 years-old Male low o2 acute hypoxia COMPARISON: Chest CT 08/10/2020, chest radiograph 07/29/2020 TECHNIQUE: Portable AP view of the chest FINDINGS: The patient is rotated. Cardiomegaly. Small right greater than left pleural effusions. Bibasilar cons olidation persists. No pneumothorax. Pulmonary vascular congestion. Degenerative changes of the shoul ders and spine. IMPRESSION: 1. Cardiomegaly with pulmonary vascular congestion. 2. Small pleural effusions with bibasilar opacities suggestive of probable compressive atelectasis. S uperimposed pneumonitis would be difficult to exclude. ACT 112: Negative or not required by law. The above report was generated using voice recognition software. It may contain grammatical, syntax o r spelling errors. Electronically signed by: Charles Macias M.D. 08/12/2020 7:05 AM
[2020-08-12 07:20] LABS: Albumin Level 1.8 gm/dl (3.4-5.0); BUN Creatinine Ratio 22.8 (10-20); Calcium 7.7 mg/dl (8.5-10.1); Creatinine Clr Calc Pharmacy 31.7 ml/min; Est GFR (African American) 20.7 ml/min; Est GFR (Non-African American) 17.9 ml/min; Potassium 3.3 mmol/L (3.5-5.1)
[2020-08-12 07:25] LABS: Albumin Globulin Ratio 0.5 (0.9-2); Bilirubin,Total 0.4 mg/dl (0.2-1); Globulin 3.7 gm/dl (2.5-4.0); T4 Free Thyroxine 0.59 ng/dl (0.8-1.6); Total Protein 5.5 gm/dl (6.4-8.2)
[2020-08-12 07:26] LABS: Anisocytosis Present; Basophils # (auto) 0.01 K/uL (0-0.2); Basophils % (auto) 0.1 %; Immature Granulocytes # (auto) 0.59 K/uL (0.00-0.02); Immature Granulocytes % (auto) 5.9 %; Lymphocytes # (auto) 0.78 K/uL (1.2-3.4); Lymphocytes % (auto) 7.8 %; Monocytes # (auto) 0.43 K/uL (0.11-0.59); Monocytes % (auto) 4.3 %; Neutrophils # (auto) 8.15 K/uL (1.4-6.5); Neutrophils % (auto) 81.9 %; Poikilocytosis Present
--- NOTE | 2020-08-12 08:31 | Surgery Progress Note ---
Date of Service August 12, 2020 Assessment & Plan (1) Acute encephalopathy: We will advance tube feeds to his goal of 70 cc/h. If/when patient becomes more coherent and cleared by speech and swallowing he could proceed with diet. For now would continue the tube feeds indefinitely. We will continue to follow along from the periphery. Please call us if any questions or concerns. Admission and Anticipated Discharge Date Admission Date: July 07, 2020 Subjective pt sleeping with cpap on. per nursing still somnolent. miguel TF's with no issue. Physical Exam Physical Exam: asleep. nad abd: soft. nt. nd. tube fx Results & Data ([facility]) Vital Signs (Past 12 Hours) Vital Signs Temp Pulse Pulse Resp BP BP Pulse Ox 08/12/20 07:46 37.3 C 56 L 19 91/48 L 99 08/12/20 07:20 57 L 20 99 08/12/20 04:00 36.8 C 69 20 99/54 L 98 08/12/20 03:28 67 96 08/11/20 23:22 36.9 C 64 23 105/54 L 95 08/11/20 22:29 71 20 93 PG Care Time/CCT Total # of Minutes Spent Total Time Spent with Patient: Total time spent is greater than 50% in co ordination of care (as documented) at patient's floor/unit and/or counseling patient: Coding Level of Care Code None Diagnoses Acute encephalopathy G93.40
[2020-08-12] MEDS: ADVANCED PROBIOTIC 1250 MG CAPSULE PO SCH (08:32)
[2020-08-12] MEDS: PANTOprazole 40 MG TAB PO SCH (08:32)
[2020-08-12] MEDS: LEVOTHYROXINE SODIUM 100 MCG in SYRINGE 0 ML IV SCH (08:50)
[2020-08-12 11:41] VITALS: BP 105/69; PULSE 63; TEMP 97; O2SAT 98
--- NOTE | 2020-08-12 12:16 | Palliative Care Consultation ---
Date of Consultation August 12, 2020 Assessment & Plan (1) Palliative care encounter: This is an unfortunate patient who is a 79 year old male who presented on July 07 with symptoms of a bowel perforation, including unresponsiveness, abdominal pain and increased pain. He underwent two decompressive colonoscopies which included terminal supervisor G-tube placement in June 2020. He has unfortunately had a complex medical journey, including developing sepsis without improvement despite antibiotic and antifungal treatment. Over the past few days, he has shown more progressive decline , including a code purple which led to possible aspiration. Additional PMH includes: COPD, CHF, HTN, hypothyroidism, gout, and sleep apnea. Palliative Medicine was consulted to discuss goals of care. I visited with Mr. Jackson in his room. He had the BiPap mask on. He opened his eyes to verbal stimuli and was able to nod yes and no appropriately to questions. While he does appear oriented, I do not know that he can grasp the complexity of this illness. I asked him if he was tired and he nodded. I did express that he has a lot of things going on medically and some of them may not be fixable. I explained that sometimes when it does not appear a condition is fixable, we shift our focus to ensuring that as our body declines, we keep the body comfortable as it transitions through the dying process. He nodded in agreement. I did ask him if he was fearful of dying and he shook his head no. I called his daughter and main point of contact, Soniya Yoon at [phone]. We had a very lengthy conversation and she discussed that she was able to have a very comforting conversation with her dad yesterday with just her in the room. She gave her Dad permission to leave the world and he expressed in other words his peace with the lord. I discussed palliative transition to comfort measures and what that entails. Family wants tube feedings discontinued as well. I discussed medication and symptom management with removal of the BiPAP mask. She said that her has given him permission to also and ensured he would care for Soniya after he passed. Soniya stated that she had some family members that would want to be present. I did express that I would suggest rotation of family as much as possible. help desk intern notified of names coming to visit for end of life. Once BiPAP mask removed, patient likely has days of life left. Palliative will follow and ensure patient is comfortable throughout the end of his life. Update: Multiple family members, including Soniya and the patients , Damaris at the bedside. Morphine administered by RN as ordered and BiPAP mask removed. All questions answered and family comfortable with the plan. Bereavement tray ordered. Comfort medications ordered and should patient require numerous doses of Morphine for air hunger, nursing will contact for a continuous Morphine infusion. Palliative will monitor. Support offered to family. As mentioned, once BiPAP removed, life expectancy likely hours to a few days. (2) Mixed acid base balance disorder: (3) Bowel perforation: (4) Weakness: History of Present Illness Reason for Consultation: Goals of Care Requesting Physician: Dr. Carlos Attending Physician: Henna Carlos MD History of Present Illness This is an unfortunate patient who is a 79 year old male who presented on July 07 with symptoms of a bowel perforation, including unresponsiveness, abdominal pain and increased pain. He underwent two decompressive colonoscopies which included terminal supervisor G-tube placement in June 2020. He has unfortunately had a complex medical journey, including developing sepsis without improvement despite antibiotic and antifungal treatment. Over the past few days, he has shown more progressive decline , including a code purple which led to possible aspiration. Additional PMH includes: COPD, CHF, HTN, hypothyroidism, gout, and sleep apnea. Palliative Medicine was consulted to discuss goals of care. Please see A/P for further details. Thanks for involving Palliative Medicine with this individual. Allergies Allergy/AdvReac Type Severity Reaction Status Date / Time No Known Allergies Allergy Verified 07/06/20 21:30 Home Medications Medication Instructions Recorded Confirmed Type amlodipine 5 mg tablet 5 mg PO QAM 11/20/18 07/10/20 History aspirin 81 mg tablet,delayed 81 mg PO QAM 11/20/18 07/10/20 History release simvastatin 20 mg tablet 20 mg PO HS tab 11/20/18 07/10/20 History bumetanide 1 mg tablet 1.5 mg PO BID tab 01/08/19 07/10/20 History cholecalciferol (vitamin D3) 25 1,000 units PO QAM 01/08/19 07/10/20 History mcg (1,000 unit) capsule colchicine 0.6 mg capsule 0.6 mg PO QAM 01/08/19 07/10/20 History CPAP Machine #1 ea 02/07/19 07/10/20 Rx Oxygen Home #1 ea 05/13/19 07/10/20 Rx calcium carbonate [Tums] 200 mg PO BID PRN 05/16/20 07/10/20 History levothyroxine 175 mcg PO DAILYBB 06/13/20 07/10/20 History colchicine [Colcrys] 0.6 mg PO BID 30 Days #60 tab 07/04/20 07/10/20 Rx pantoprazole 40 mg PO QAM 30 Days #30 tab 07/04/20 07/10/20 Rx tamsulosin [Flomax] 0.4 mg PO HS #30 cap 07/04/20 07/10/20 Rx L.acidop,nury,lac,rha-B.lac,taz 2 cap PO QAM 07/06/20 07/10/20 History [Advanced Probiotic] Patient History Medical History (Updated 08/12/20 @ 12:16 by OKSANA Mata) Acute encephalopathy Acute kidney failure on 06/14/20 Anemia Dyslipidemia GERD (gastroesophageal reflux disease) HTN (hypertension) Hx of gout Hypothyroidism Hypothyroidism Leukocytosis Mixed acid base balance disorder Neuropathy Obesity On home oxygen therapy 4 LPM qHS Palliative care encounter Restrictive lung disease Sleep apnea BiPAP + O2 at 4 LPM Venous insufficiency Weakness Surgical History H/O exploratory laparotomy (07/06/20) Exploratory Laparotomy, Repair of Gastrostomy, Replacement of Gastrostomy. Tube, and Abdominal Washout. - Shola Damon, DO History of cataract surgery RT. 06/03/20. [facility]. 2mg versed, 50mcg fentanyl. no issues reported. History of colonoscopy S/P laparotomy (06/26/20) Laparoscopy converted to laparotomy, resection of descending sigmoid colon, partial rectal resection, gastrostomy - Hugo Ware MD, FACS Family History Father Hypertension Mother Lung cancer Aunt Diabetes Aunt Diabetes Other No family history of adverse response to anesthesia No significant family history Social History Smoking Status: Never smoker Second Hand Exposure: No; Hx Alcohol Use: No Hx Substance Use: No Preferred Language: Malay Communication Ability: Effective Visual Impairment: No Limitations Supply Chain Assistant Required: No Beliefs That Will Affect Care: None marital status: Current Living Situation: Spouse 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 Other Information That Helps Us Care for You: No Feels Safe at Home: Yes Safety Concerns: Feels Safe At This Time Assistive Devices: BiPap Review of Systems Review of Systems: Nebo System Assessment Scale: Pain: 1/3 Tiredness: 3/3 Anxiety: 1/3 Shortness of breath: 2/3 Drowsiness: 1/3 Palliative Performance Scale: 20% Physical Exam Constitutional: + obese, + frail appearing and cooperative ENMT: Nose: + dry nasal mucous membranes Neck: trachea midline, no thyromegaly Respiratory: + uses accessory muscles Auscultation: + diminished lung sounds Cardiovascular: Rate/Rhythm: regular rate and regular rhythm Heart Sounds: normal S1 and normal S2 Extremities: normal capillary refill and + edema Gastrointestinal (Abdomen): normal bowel sounds, soft, nontender, no hepatosplenomegaly g tube Skin: + ecchymosis and + pallor Results & Data ([facility]) Vital Signs (Past 12 Hours) Vital Signs Temp Pulse Pulse Resp BP BP Pulse Ox 08/12/20 11:40 36.1 C L 63 18 105/69 98 08/12/20 11:17 59 L 22 97 08/12/20 08:00 61 08/12/20 07:46 37.3 C 56 L 19 91/48 L 99 08/12/20 07:20 57 L 20 99 08/12/20 04:00 36.8 C 69 20 99/54 L 98 08/12/20 03:28 67 96 PG Care Time/CCT Total # of Minutes Spent Total Time Spent with Patient: Total time spent is greater than 50% in coordin ation of care (as documented) at patient's floor/unit and/or counseling patient: 100 minutes with > 50% of that time spent assessing the patient, discussing goals of care with family, addressing symptom management needs with the family and patient and collaborating with IDT Coding Level of Care Code 95789 Inpt Consult Level 4 Diagnoses Palliative care encounter Z51.5 Mixed acid base balance disorder E87.4 Bowel perforation K63.1 Weakness R53.1 Time Spent (min) 100
[2020-08-12] MEDS ORDERED: LORazepam 0.5 MG/1 ML VIAL IV PRN (13:14)
[2020-08-12] MEDS ORDERED: ONDANSETRON INJ 2 MG/ML 2 ML VIAL IV PRN (13:14)
[2020-08-12] MEDS ORDERED: MoRPHine SULFATE 2 MG/ML CARP IV PRN ×2 (13:14→23:29)
[2020-08-12] MEDS ORDERED: MoRPHine SULFATE 2 MG/ML CARP IV ONE (14:00)
--- NOTE | 2020-08-12 14:22 | Hospitalist Progress Note ---
Date of Service August 12, 2020 Assessment & Plan (1) Septic shock: Altered mental status; possibly metabolic encephalopathy - resolved, today Ox3 Septic shock on admission - resolved Perforated viscus/peritonitis, fungemia/dislodged G-tube on admission 1) Recurrent sigmoid volvulus with exp laparotomy, sigmoidectomy and gastrostomy S/P 2 decompressive colonoscopies with sigmoidectomy and/G-tube placement 06/26/20 2) Readmission on 07/07/2020 with unresponsiveness, abdominal pain, severe pain. X-ray on admission showed large amount of free air under diaphragm-dislodged G- tube causing peritonitis 07/07/2020 :S/P Exp Laparotomy /replacement of G-tube with large inflated balloon covering the pylorus to prevent dislodgment; extubated on 07/14/20 History of chronic diastolic heart failure extubation History of COPD History of hypertension History of hypothyroid History of gout History of Sleep apnea Patient is 79-year-old male with above comorbidities presented with bowel perforation. Patient underwent 2 decompressive colonoscopies performed this admission with sigmoidectomy and/G-tube placement. He have had a complicated course during this hospitalization. Did have franko developed sepsis and have completed 14 days of treatment with caspofungin. note, on 08/05 code purple was called due to patient being lethargic and hypoxic. CT head was obtained which did not reveal any acute findings. CT abdomen/pelvis was obtained which did not reveal any new findings. CT chest was obtained which revealed concern for possible consolidative opacities at dependent portions of bilateral lower lobes is not significantly changed since prior study performed more than 6 weeks ago which might represent atelectasis or pneumonia. There was concern for possible aspiration episode. Patinet was made NPO. Nutrition was on board. Was started for possible aspiration pneumonia. Blood cultures were obtained. 08/09 patient was found to have adrenal insufficiency and symptomatic hypothyroidism that led to further clinical decline. Acute hypoxic/hypercapnic respiratory failure Mixed acid-base balance disorder Myxedema coma Adrenal insufficient Acute renal failure Acute diastolic heart failure Overall prognosis remains poor. Critical care evaluated the patient and signed off and recommended goals of care discussion with palliative team. Currently patient remains on the BiPAP. Continues to have minimal urine output. Blood cultures have been negative thus far. Patient remains on the BiPAP. Repeat ABG last evening with not significant improvement. Patient remains on levothyroxine and hydrocortisone. Given the overall clinical picture and poor prognosis patient was transitioned to comfort care as per family request. I spoke with Soniya and the family extensively on 08/11 regarding comfort care measures. All their questions were answered. Palliative medicine was consulted. Plan is to transition patient to comfort care and [facility] today. Nutrition Dysphagia Was started on TPN 07/15 for roughty two weeks. Was on purred until 08/05/20. However given concern with aspirtion on 08/05, patient was made NPO. Chasidy is on board. Candidal sepsis - resolved Blood culture: On 07/07/2020: Franko Repeat blood culture on 07/09/2020: No growth No need for ANASTASIA at this time without persistent bloodstream infection. ID consult-appreciated Completed 14 days treatment of caspofungin (last dose 07/23/20) Central line discontinued (2) Postoperative ileus: Resolved (3) Fungemia: Resolved Candidal sepsis Blood culture: On 07/07/2020: Franko Repeat blood culture on 07/09/2020: No growth Cont Caspofungin for 14 day course. No need for ANASTASIA at this time without persistent bloodstream infection. Completed the course of caspofungin (4) Diastolic CHF, chronic: Volume status stable (5) Bradycardia: avoid AV douglas blocking drug brief episodes of bradycardia noted while coughing , recovered quickly (6) COPD (chronic obstructive pulmonary disease): CPAP at night (7) Obesity hypoventilation syndrome: (8) Anemia: Possible anemia of chronic disease, (9) Post-operative state: (10) DVT prophylaxis: SQ Heparin Patient is DNR/DNI Admission and Anticipated Discharge Date Admission Date: July 07, 2020 Subjective Patient again minimally responsive this morning. Did open his eyes to command. Remains on the BiPAP. Does not appear to be in any distress. Minimal urine output overnight. Review of Systems Review of Systems: Unobtainable due to cognitive status Physical Exam Physical Exam: General: Somnolent, currently on the BiPAP HENT: NCAT, MMM, EOMI Eyes: PERRLA Neck: Supple, normal range of motion CVS: normal rate and rhythm Resp: b/l decrease breath sounds Abdomen: Soft, incisions c/d/i, G-tube in place, distended but non-tender Extremities: 2+ LE edema Neuro: uable to examine at patient is somnolent Skin: warm and dry, no rashes/lesions/errythema MSK: normal ROM, no joint swelling/erythema Ibanez catheter in place with minimal urine output. Results & Data Results & Data ([facility]) Vital Signs (Past 12 Hours) Vital Signs Temp Pulse Pulse Resp BP BP Pulse Ox 08/12/20 11:40 36.1 C L 63 18 105/69 98 08/12/20 11:17 59 L 22 97 08/12/20 08:00 61 08/12/20 07:46 37.3 C 56 L 19 91/48 L 99 08/12/20 07:20 57 L 20 99 08/12/20 04:00 36.8 C 69 20 99/54 L 98 08/12/20 03:28 67 96
--- NOTE | 2020-08-12 23:29 | Communication Note ---
Date of Service: August 12, 2020 Patient daughter requesting for lower dose of IV morphine because morphine 2 mg as needed makes patient too sleepy as per RN.
--- NOTE | 2020-08-13 10:56 | Hospitalist Progress Note ---
Date of Service August 13, 2020 Assessment & Plan (1) Septic shock: Altered mental status; possibly metabolic encephalopathy - resolved, today Ox3 Septic shock on admission - resolved Perforated viscus/peritonitis, fungemia/dislodged G-tube on admission 1) Recurrent sigmoid volvulus with exp laparotomy, sigmoidectomy and gastrostomy S/P 2 decompressive colonoscopies with sigmoidectomy and/G-tube placement 06/26/20 2) Readmission on 07/07/2020 with unresponsiveness, abdominal pain, severe pain. X-ray on admission showed large amount of free air under diaphragm-dislodged G- tube causing peritonitis 07/07/2020 :S/P Exp Laparotomy /replacement of G-tube with large inflated balloon covering the pylorus to prevent dislodgment; extubated on 07/14/20 History of chronic diastolic heart failure extubation History of COPD History of hypertension History of hypothyroid History of gout History of Sleep apnea Patient is 79-year-old male with above comorbidities presented with bowel perforation. Patient underwent 2 decompressive colonoscopies performed this admission with sigmoidectomy and/G-tube placement. He have had a complicated course during this hospitalization. Did have shantell, developed sepsis and have completed 14 days of treatment with caspofungin. note, on 08/05 code purple was called due to patient being lethargic and hypoxic. CT head was obtained which did not reveal any acute findings. CT abdomen/pelvis was obtained which did not reveal any new findings. CT chest was obtained which revealed concern for possible consolidative opacities at dependent portions of bilateral lower lobes is not significantly changed since prior study performed more than 6 weeks ago which might represent atelectasis or pneumonia. There was concern for possible aspiration episode. Patinet was made NPO. Nutrition was on board. Was started for possible aspiration pneumonia. Blood cultures were obtained. 08/09 patient was found to have adrenal insufficiency and symptomatic hypothyroidism that led to further clinical decline. Acute hypoxic/hypercapnic respiratory failure Mixed acid-base balance disorder Myxedema coma Adrenal insufficient Acute renal failure Acute diastolic heart failure Overall prognosis remains poor. Critical care evaluated the patient and signed off and recommended goals of care discussion with palliative team. Patient was on levothyroxine and hydrocortisone. Given the overall clinical picture and poor prognosis patient was transitioned to comfort care as per family request. Palliative medicine was consulted. Transitioned to comfort care on 08/12/20 Nutrition Dysphagia Was started on TPN 5/11 for roughty two weeks. Was on purred until 08/05/20. However given concern with aspiration on 08/05, patient was made NPO. Candidal sepsis - resolved Blood culture: On 07/07/2020: Shantell Repeat blood culture on 07/09/2020: No growth No need for ANASTASIA at this time without persistent bloodstream infection. ID consult-appreciated Completed 14 days treatment of caspofungin (last dose 07/23/20) Central line discontinued (2) Postoperative ileus: Resolved (3) Fungemia: Resolved Candidal sepsis Blood culture: On 07/07/2020: Shantell Repeat blood culture on 07/09/2020: No growth Cont Caspofungin for 14 day course. No need for ANASTASIA at this time without persistent bloodstream infection. Completed the course of caspofungin (4) Diastolic CHF, chronic: Volume status stable (5) Bradycardia: avoid AV douglas blocking drug brief episodes of bradycardia noted while coughing , recovered quickly (6) COPD (chronic obstructive pulmonary disease): (7) Obesity hypoventilation syndrome: (8) Anemia: Possible anemia of chronic disease, (9) Post-operative state: (10) DVT prophylaxis: Currently on comfort care measures only Poor prognosis. Patient may likely in days. Will continue care in the hospital for now Discussed with daughter and answered all their question. Admission and Anticipated Discharge Date Admission Date: July 07, 2020 Subjective Patient seen and examined with daughter and son-in-law at bedside Review of Systems Review of Systems: Unobtainable due to cognitive status Physical Exam Constitutional: no acute distress Somnolent. Opens eyes to touch but does not follow command Eyes: PERRL, conjunctivae normal, anicteric sclerae ENMT: external ear and nose normal, oropharynx normal Respiratory: normal respiratory effort; no respiratory distress and no labored breathing Decreased breath sounds globally Cardiovascular: Rate/Rhythm: regular rate and regular rhythm S1-S2 Gastrointestinal (Abdomen): normal bowel sounds, soft, nontender, no hepatosplenomegaly Musculoskeletal: Bilateral leg edema Neurologic: Somnolent. Opens eyes to touch but does not follow commands
[2020-08-13] MEDS ORDERED: MoRPHine SULFATE 5 MG/0.25 ML UDP PO PRN (11:24)
--- NOTE | 2020-08-13 17:30 | Palliative Care Progress Note ---
Date of Service August 13, 2020 Assessment & Plan (1) Palliative care encounter: Patient is on comfort measures only. Three family members were at the bedside, including Soniya and Damaris when I visited. The patient had unlabored; even, but shallow breathing. No signs of facial grimacing noted. Urine output has significantly decreased. Patient is still warm to touch with some edema. I do anticipate patient looks like he could pass over the next day or two. I adjusted his Roxanol orders to be 5 mg PO Q1 PRN. Should he become uncomfortable with any of the other symptoms listed above, I would suggest scheduling routine Roxanol. The patient will aborb this medication through his cheek tissues for end of life transition. Family has expressed interest in taking him home with hospice services. Per Soniya, the patient does have equipment at home. Should the patient live through the night, will reassess and discuss returning home with hospice. Will update case management as well in the morning. Palliative will follow. (2) Mixed acid base balance disorder: (3) Bowel perforation: (4) Weakness: Admission and Anticipated Discharge Date Admission Date: July 07, 2020 Subjective Pt obtunded and non responsive when I saw him. Family members at bedside. All questions answered. See A/p for further details. Review of Systems Review of Systems: [place] System Assessment Scale: Pain: 1/3 Tiredness: 3/3 Anxiety: 0/3 Shortness of breath: 1/3 Drowsiness: 1/3 Palliative Performance Scale: 10% Physical Exam Constitutional: + obese, + frail appearing and cooperative ENMT: Nose: + dry nasal mucous membranes Neck: trachea midline, no thyromegaly Respiratory: + uses accessory muscles Auscultation: + diminished lung sounds Cardiovascular: Rate/Rhythm: regular rate and regular rhythm Heart Sounds: normal S1 and normal S2 Extremities: normal capillary refill and + edema Gastrointestinal (Abdomen): normal bowel sounds, soft, nontender, no hepatosplenomegaly Skin: + ecchymosis and + pallor PG Care Time/CCT Total # of Minutes Spent Total Time Spent with Patient: Total time spent is greater than 50% in coordination of care (as documented) at patient's floor/unit and/or counseling patient: 35 minutes with > 50% of that time spent assessing the patient, discussing goals of care and symptom management and collaborating with IDT Coding Level of Care Code 87834 Subseq Hosp Care Lvl 3 Diagnoses Palliative care encounter Z51.5 Mixed acid base balance disorder E87.4 Bowel perforation K63.1 Weakness R53.1 Time Spent (min) 35
[2020-08-13] MEDS: GLYCOPYRROLATE 0.2 MG/ML VIAL IV PRN (20:07)
[2020-08-13] MEDS: MoRPHine SULFATE 5 MG/0.25 ML UDP PO PRN (20:08)
[2020-08-14] MEDS: GLYCOPYRROLATE 0.2 MG/ML VIAL IV PRN ×3 (06:23→22:00)
[2020-08-14] MEDS: MoRPHine SULFATE 5 MG/0.25 ML UDP PO PRN ×3 (06:24→18:23)
--- NOTE | 2020-08-14 12:29 | Palliative Care Progress Note ---
Date of Service August 14, 2020 Assessment & Plan (1) Palliative care encounter: Patient is on comfort measures only. Three family members were at the bedside, including Soniya and Damaris when I visited. The patient had unlabored; even, but shallow breathing. No signs of facial grimacing noted. He was able to open his eyes ever so slightly. Urine output has significantly decreased, even from yesterday. Patient is still warm to touch with some edema, which ultimately could keep this individual alive for some time. Since he doesn't have any urine output, I do not anticipate this occurring. Discussed scheduling Roxanol as patient has had grimacing with turns. Roxanol 5 mg PO Q 8 scheduled with additional PRN as necessary. Life expectancy continues to be in the day range. Discussed patient going home, but family concerned with transportation and disruption of comfortable state. No mottling noted, but patient does have very shallow breathing and periods of apnea. Palliative will follow and continue to assess patient at end of life. (2) Mixed acid base balance disorder: (3) Bowel perforation: (4) Weakness: Admission and Anticipated Discharge Date Admission Date: July 07, 2020 Subjective Pt obtunded and non responsive when I saw him. Family members at bedside. All questions answered. See A/p for further details. Review of Systems Review of Systems: [place] System Assessment Scale: Pain: 1/3 Tiredness: 3/3 Anxiety: 0/3 Shortness of breath: 1/3 Drowsiness: 1/3 Palliative Performance Scale: 10% Physical Exam Constitutional: + obese, + frail appearing and cooperative ENMT: Nose: + dry nasal mucous membranes Neck: trachea midline, no thyromegaly Respiratory: + uses accessory muscles Auscultation: + diminished lung sounds Cardiovascular: Rate/Rhythm: regular rate and regular rhythm Heart Sounds: normal S1 and normal S2 Extremities: normal capillary refill and + edema Gastrointestinal (Abdomen): normal bowel sounds, soft, nontender, no hepatosplenomegaly Skin: + ecchymosis and + pallor PG Care Time/CCT Total # of Minutes Spent Total Time Spent with Patient: Total time spent is greater than 50% in coordination of care (as documented) at patient's floor/unit and/or counseling patient: 35 minutes with > 50% of that time spent assessing the patient, discussing goals of care with family, evaluating symptom management and collaborating with IDT Coding Level of Care Code 53222 Subseq Hosp Care Lvl 3 Diagnoses Palliative care encounter Z51.5 Mixed acid base balance disorder E87.4 Bowel perforation K63.1 Weakness R53.1
--- NOTE | 2020-08-14 13:21 | Hospitalist Progress Note ---
Date of Service August 14, 2020 Assessment & Plan (1) Septic shock: Altered mental status; possibly metabolic encephalopathy - resolved, today Ox3 Septic shock on admission - resolved Perforated viscus/peritonitis, fungemia/dislodged G-tube on admission 1) Recurrent sigmoid volvulus with exp laparotomy, sigmoidectomy and gastrostomy S/P 2 decompressive colonoscopies with sigmoidectomy and/G-tube placement 06/26/20 2) Readmission on 07/07/2020 with unresponsiveness, abdominal pain, severe pain. X-ray on admission showed large amount of free air under diaphragm-dislodged G- tube causing peritonitis 07/07/2020 :S/P Exp Laparotomy /replacement of G-tube with large inflated balloon covering the pylorus to prevent dislodgment; extubated on 07/14/20 History of chronic diastolic heart failure extubation History of COPD History of hypertension History of hypothyroid History of gout History of Sleep apnea Patient is 79-year-old male with above comorbidities presented with bowel perforation. Patient underwent 2 decompressive colonoscopies performed this admission with sigmoidectomy and/G-tube placement. He have had a complicated course during this hospitalization. Did have franko, developed sepsis and have completed 14 days of treatment with caspofungin. note, on 08/05 code purple was called due to patient being lethargic and hypoxic. CT head was obtained which did not reveal any acute findings. CT abdomen/pelvis was obtained which did not reveal any new findings. CT chest was obtained which revealed concern for possible consolidative opacities at dependent portions of bilateral lower lobes is not significantly changed since prior study performed more than 6 weeks ago which might represent atelectasis or pneumonia. There was concern for possible aspiration episode. Patinet was made NPO. Nutrition was on board. Was started for possible aspiration pneumonia. Blood cultures were obtained. 08/09 patient was found to have adrenal insufficiency and symptomatic hypothyroidism that led to further clinical decline. Acute hypoxic/hypercapnic respiratory failure Mixed acid-base balance disorder Myxedema coma Adrenal insufficient Acute renal failure Acute diastolic heart failure Overall prognosis remains poor. Critical care evaluated the patient and signed off and recommended goals of care discussion with palliative team. Patient was on levothyroxine and hydrocortisone. Given the overall clinical picture and poor prognosis patient was transitioned to comfort care as per family request. Palliative medicine was consulted. Transitioned to comfort care on 08/12/20 Nutrition Dysphagia Was started on TPN 5/11 for roughty two weeks. Was on purred until 08/05/20. However given concern with aspiration on 08/05, patient was made NPO. Candidal sepsis - resolved Blood culture: On 07/07/2020: Franko Repeat blood culture on 07/09/2020: No growth No need for ANASTASIA at this time without persistent bloodstream infection. ID consult-appreciated Completed 14 days treatment of caspofungin (last dose 07/23/20) Central line discontinued (2) Postoperative ileus: Resolved (3) Fungemia: Resolved Candidal sepsis Blood culture: On 07/07/2020: Franko Repeat blood culture on 07/09/2020: No growth Cont Caspofungin for 14 day course. No need for ANASTASIA at this time without persistent bloodstream infection. Completed the course of caspofungin (4) Diastolic CHF, chronic: Volume status stable (5) Bradycardia: avoid AV douglas blocking drug brief episodes of bradycardia noted while coughing , recovered quickly (6) COPD (chronic obstructive pulmonary disease): CPAP at night (7) Obesity hypoventilation syndrome: (8) Anemia: Possible anemia of chronic disease, (9) Post-operative state: (10) DVT prophylaxis: Continue comfort measures only Roxanol scheduled now Palliative on board Admission and Anticipated Discharge Date Admission Date: July 07, 2020 Subjective Patient seen and examined Family members (Daughters,spouse, son lila) at bedside Patient is not responsive Review of Systems Review of Systems: Unobtainable due to cognitive status Physical Exam Constitutional: no acute distress Unresponsive to noxious stimuli Eyes: PERRL, conjunctivae normal, anicteric sclerae ENMT: external ear and nose normal, oropharynx normal Respiratory: normal respiratory effort; no respiratory distress and no labored breathing Cardiovascular: Rate/Rhythm: regular rate and regular rhythm +bilateral pedal edema Gastrointestinal (Abdomen): normal bowel sounds, soft, nontender, no hepatosplenomegaly Musculoskeletal: + Bilateral pedal edema Some petechiae on LE Neurologic: + obtunded Genitourinary: Ibanez in situ, Minimal urine output
[2020-08-14] MEDS: MoRPHine SULFATE 5 MG/0.25 ML UDP PO SCH ×2 (13:41→22:01)
[2020-08-15] MEDS: MoRPHine SULFATE 5 MG/0.25 ML UDP PO PRN ×3 (01:06→22:00)
[2020-08-15] MEDS: GLYCOPYRROLATE 0.2 MG/ML VIAL IV PRN ×3 (01:06→12:21)
[2020-08-15] MEDS: MoRPHine SULFATE 5 MG/0.25 ML UDP PO SCH ×4 (05:44→23:50)
--- NOTE | 2020-08-15 10:42 | Palliative Care Progress Note ---
Date of Service August 15, 2020 Assessment & Plan (1) Palliative care encounter: Patient is on comfort measures only. Three family members were at the bedside, including Soniya and Damaris when I visited. The patient now is having some increased accessory muscle use with his breathing, mostly diaphragmatic, albeit subtle. Some oral accessory muscle use noted as well. No signs of facial grimacing noted. He was not able to open his eyes for me today. Urine output is non existent anymore. Some signs of mottling noted on both feet, heels and toes. Patient is still warm to touch with some edema, which ultimately could keep this individual alive for some time, but since he does not have any urine output, I do not anticipate this occurring. Pt tolerating routine Roxanol and will increase frequency to Q6 hours with additional PRN as necessary. Life expectancy continues to be in the day or so range. At this time, I do not feel patient is stable for transfer out of hospital and expect patient to pass away here. Pt not a GIP candidate as he is managed appropriately with his meds ordered. Palliative will follow and continue to assess patient at end of life. (2) Mixed acid base balance disorder: (3) Bowel perforation: (4) Weakness: Admission and Anticipated Discharge Date Admission Date: July 07, 2020 Subjective Pt obtunded and non responsive when I saw him. Family members at bedside. All questions answered. See A/p for further details. Review of Systems Review of Systems: [place] System Assessment Scale: Pain: 1/3 Tiredness: 3/3 Anxiety: 0/3 Shortness of breath: 1/3 Drowsiness: 1/3 Palliative Performance Scale: 10% Physical Exam Constitutional: + obese, + frail appearing and cooperative ENMT: Nose: + dry nasal mucous membranes Neck: trachea midline, no thyromegaly Respiratory: + uses accessory muscles Auscultation: + diminished lung sounds Cardiovascular: Rate/Rhythm: regular rate and regular rhythm Heart Sounds: normal S1 and normal S2 Extremities: normal capillary refill and + edema Gastrointestinal (Abdomen): normal bowel sounds, soft, nontender, no hepatosplenomegaly Skin: + ecchymosis and + pallor PG Care Time/CCT Total # of Minutes Spent Total Time Spent with Patient: Total time spent is greater than 50% in coordination of care (as documented) at patient's floor/unit and/or counseling patient: 35 minutes with > 50% of that time spent assessing the patient, discussing goals of care with family, evaluating and addressing symptom management needs, and collaborating with IDT. Coding Level of Care Code 22074 Subseq Hosp Care Lvl 3 Diagnoses Palliative care encounter Z51.5 Mixed acid base balance disorder E87.4 Bowel perforation K63.1 Weakness R53.1 Time Spent (min) 35
--- NOTE | 2020-08-15 14:33 | Hospitalist Progress Note ---
Date of Service August 15, 2020 Assessment & Plan (1) Septic shock: Altered mental status; possibly metabolic encephalopathy - resolved, today Ox3 Septic shock on admission - resolved Perforated viscus/peritonitis, fungemia/dislodged G-tube on admission 1) Recurrent sigmoid volvulus with exp laparotomy, sigmoidectomy and gastrostomy S/P 2 decompressive colonoscopies with sigmoidectomy and/G-tube placement 06/26/20 2) Readmission on 07/07/2020 with unresponsiveness, abdominal pain, severe pain. X-ray on admission showed large amount of free air under diaphragm-dislodged G- tube causing peritonitis 07/07/2020 :S/P Exp Laparotomy /replacement of G-tube with large inflated balloon covering the pylorus to prevent dislodgment; extubated on 07/14/20 History of chronic diastolic heart failure extubation History of COPD History of hypertension History of hypothyroid History of gout History of Sleep apnea Patient is 79-year-old male with above comorbidities presented with bowel perforation. Patient underwent 2 decompressive colonoscopies performed this admission with sigmoidectomy and/G-tube placement. He have had a complicated course during this hospitalization. Did have shantell, developed sepsis and have completed 14 days of treatment with caspofungin. note, on 08/05 code purple was called due to patient being lethargic and hypoxic. CT head was obtained which did not reveal any acute findings. CT abdomen/pelvis was obtained which did not reveal any new findings. CT chest was obtained which revealed concern for possible consolidative opacities at dependent portions of bilateral lower lobes is not significantly changed since prior study performed more than 6 weeks ago which might represent atelectasis or pneumonia. There was concern for possible aspiration episode. Patinet was made NPO. Nutrition was on board. Was started for possible aspiration pneumonia. Blood cultures were obtained. 08/09 patient was found to have adrenal insufficiency and symptomatic hypothyroidism that led to further clinical decline. Acute hypoxic/hypercapnic respiratory failure Mixed acid-base balance disorder Myxedema coma Adrenal insufficient Acute renal failure Acute diastolic heart failure Overall prognosis remains poor. Critical care evaluated the patient and signed off and recommended goals of care discussion with palliative team. Patient was on levothyroxine and hydrocortisone. Given the overall clinical picture and poor prognosis patient was transitioned to comfort care as per family request. Palliative medicine was consulted. Transitioned to comfort care on 08/12/20 Nutrition Dysphagia Was started on TPN 5/11 for roughty two weeks. Was on purred until 08/05/20. However given concern with aspiration on 08/05, patient was made NPO. Candidal sepsis - resolved Blood culture: On 07/07/2020: Shantell Repeat blood culture on 07/09/2020: No growth No need for ANASTASIA at this time without persistent bloodstream infection. ID consult-appreciated Completed 14 days treatment of caspofungin (last dose 07/23/20) Central line discontinued (2) Postoperative ileus: (3) Fungemia: Resolved Candidal sepsis Blood culture: On 07/07/2020: Shantell Repeat blood culture on 07/09/2020: No growth Cont Caspofungin for 14 day course. No need for ANASTASIA at this time without persistent bloodstream infection. Completed the course of caspofungin (4) Diastolic CHF, chronic: (5) Bradycardia: (6) COPD (chronic obstructive pulmonary disease): (7) Obesity hypoventilation syndrome: (8) Anemia: Possible anemia of chronic disease, (9) Post-operative state: (10) DVT prophylaxis: Continue comfort measures only Roxanol scheduled now +prn Palliative on board Admission and Anticipated Discharge Date Admission Date: July 07, 2020 Subjective Patient seen and examined Patient is obtunded Family at bedside Review of Systems Review of Systems: Unobtainable due to reduced consciousness Physical Exam Constitutional: no acute distress Eyes: PERRL, conjunctivae normal, anicteric sclerae ENMT: external ear and nose normal, oropharynx normal Respiratory: normal respiratory effort; no respiratory distress and no labored breathing Cardiovascular: Rate/Rhythm: regular rate and regular rhythm Gastrointestinal (Abdomen): normal bowel sounds, soft, nontender, no hepatosplenomegaly Musculoskeletal: +bilateral LE edema Neurologic: + obtunded
[2020-08-16] MEDS: MoRPHine SULFATE 5 MG/0.25 ML UDP PO PRN ×5 (02:43→22:34)
[2020-08-16] MEDS: MoRPHine SULFATE 5 MG/0.25 ML UDP PO SCH ×4 (05:54→23:46)
--- NOTE | 2020-08-16 13:21 | Hospitalist Progress Note ---
Date of Service August 16, 2020 Assessment & Plan (1) Septic shock: Altered mental status; possibly metabolic encephalopathy - resolved, today Ox3 Septic shock on admission - resolved Perforated viscus/peritonitis, fungemia/dislodged G-tube on admission 1) Recurrent sigmoid volvulus with exp laparotomy, sigmoidectomy and gastrostomy S/P 2 decompressive colonoscopies with sigmoidectomy and/G-tube placement 06/26/20 2) Readmission on 07/07/2020 with unresponsiveness, abdominal pain, severe pain. X-ray on admission showed large amount of free air under diaphragm-dislodged G- tube causing peritonitis 07/07/2020 :S/P Exp Laparotomy /replacement of G-tube with large inflated balloon covering the pylorus to prevent dislodgment; extubated on 07/14/20 History of chronic diastolic heart failure History of COPD History of hypertension History of hypothyroid History of gout History of Sleep apnea Patient is 79-year-old male with above comorbidities presented with bowel perforation. Patient underwent 2 decompressive colonoscopies performed this admission with sigmoidectomy and/G-tube placement. He have had a complicated course during this hospitalization. Did have shantell, developed sepsis and have completed 14 days of treatment with caspofungin. note, on 08/05 code purple was called due to patient being lethargic and hypoxic. CT head was obtained which did not reveal any acute findings. CT abdomen/pelvis was obtained which did not reveal any new findings. CT chest was obtained which revealed concern for possible consolidative opacities at depende nt portions of bilateral lower lobes is not significantly changed since prior study performed more than 6 weeks ago which might represent atelectasis or pneumonia. There was concern for possible aspiration episode. Patinet was made NPO. Nutrition was on board. Was started for possible aspiration pneumonia. Blood cultures were obtained. 08/09 patient was found to have adrenal insufficiency and symptomatic hypothyroidism that led to further clinical decline. Acute hypoxic/hypercapnic respiratory failure Mixed acid-base balance disorder Myxedema coma Adrenal insufficient Acute renal failure Acute diastolic heart failure Overall prognosis remains poor. Critical care evaluated the patient and signed off and recommended goals of care discussion with palliative team. Patient was on levothyroxine and hydrocortisone. Given the overall clinical picture and poor prognosis patient was transitioned to comfort care as per family request. Palliative medicine was consulted. Transitioned to comfort care on 08/12/20 Nutrition Dysphagia Was started on TPN 07/15 for roughty two weeks. Was on pureed until 08/05/20. However given concern with aspiration on 08/05, patient was made NPO. Candidal sepsis - resolved Blood culture: On 07/07/2020: Shantell Repeat blood culture on 07/09/2020: No growth No need for ANASTASIA at this time without persistent bloodstream infection. ID consult-appreciated Completed 14 days treatment of caspofungin (last dose 07/23/20) Central line discontinued (2) Postoperative ileus: Resolved (3) Fungemia: Resolved Candidal sepsis Blood culture: On 07/07/2020: Shantell Repeat blood culture on 07/09/2020: No growth Cont Caspofungin for 14 day course. No need for ANASTASIA at this time without persistent bloodstream infection. Completed the course of caspofungin (4) Diastolic CHF, chronic: (5) Bradycardia: (6) COPD (chronic obstructive pulmonary disease): (7) Obesity hypoventilation syndrome: (8) Anemia: Possible anemia of chronic disease, (9) Post-operative state: (10) DVT prophylaxis: Continue comfort measures only Roxanol scheduled now +prn Palliative on board Monitor progress through the weekend and reassess home hospice with family next week Admission and Anticipated Discharge Date Admission Date: July 07, 2020 Subjective Patient seen and examined Family at bedside Review of Systems Review of Systems: Unobtainable due to cognitive status Physical Exam Constitutional: no acute distress ENMT: External ears and nose normal Respiratory: normal respiratory effort; no respiratory distress and no labored breathing Cardiovascular: Rate/Rhythm: regular rate and regular rhythm S1 S2 Gastrointestinal (Abdomen): normal bowel sounds, soft, nontender, no hepatosplenomegaly Musculoskeletal: +bilateral leg edema Neurologic: + obtunded Genitourinary: Ibanez in situ with empty urine bag
[2020-08-16] MEDS: GLYCOPYRROLATE 0.2 MG/ML VIAL IV PRN (19:28)
[2020-08-17] MEDS: MoRPHine SULFATE 5 MG/0.25 ML UDP PO PRN ×2 (01:06→02:38)
[2020-08-17] MEDS: MoRPHine SULFATE 5 MG/0.25 ML UDP PO SCH ×2 (05:22→13:09)
--- NOTE | 2020-08-17 11:58 | Hospitalist Progress Note ---
Date of Service August 17, 2020 Assessment & Plan (1) Septic shock: Altered mental status; possibly metabolic encephalopathy - resolved, today Ox3 Septic shock on admission - resolved Perforated viscus/peritonitis, fungemia/dislodged G-tube on admission 1) Recurrent sigmoid volvulus with exp laparotomy, sigmoidectomy and gastrostomy S/P 2 decompressive colonoscopies with sigmoidectomy and/G-tube placement 06/26/20 2) Readmission on 07/07/2020 with unresponsiveness, abdominal pain, severe pain. X-ray on admission showed large amount of free air under diaphragm-dislodged G- tube causing peritonitis 07/07/2020 :S/P Exp Laparotomy /replacement of G-tube with large inflated balloon covering the pylorus to prevent dislodgment; extubated on 07/14/20 History of chronic diastolic heart failure History of COPD History of hypertension History of hypothyroid History of gout History of Sleep apnea Patient is 79-year-old male with above comorbidities presented with bowel perforation. Patient has had complicated clinical course over the past 2 months. Was initially hospitalized from 06/13/2020 to 07/04/2020. During that time he presented with abdominal pain and distention. Was found to have colonic dilatation. Required multiple decompressive colonoscopies and surgery with ex lap and resection of descending sigmoid colon, partial rectal resection and gastrostomy on 06/26/2020. Required TPN for time and then changed to low fiber diet prior to discharge on 07/04/2020 Patient presented again to the hospital on 07/07/2020 with unresponsiveness, severe abdominal pain. Had exploratory laparotomy in the setting of free intraperitoneal air with replacement of gastric tube, repair of gastrostomy and abdominal washout. Was managed in the ICU required mechanical ventilation and pressors for septic shock/fungemia. Blood culture on 07/07/20 grew franko. Was evaluated by ID. Completed 14 days of caspofungin On 08/05 code nathan was called due to patient being lethargic and hypoxic. CT head was obtained which did not reveal any acute findings. CT abdomen/pelvis was obtained which did not reveal any new findings. CT chest was obtained which revealed concern for possible consolidative opacities at dependent portions of bilateral lower lobes is not significantly changed since prior study performed more than 6 weeks ago which might represent atelectasis or pneumonia. There was concern for possible aspiration episode. Patinet was made NPO. Nutrition was on board. Was started for possible aspiration pneumonia. Blood cultures were obtained. 08/09 patient was found to have adrenal insufficiency and symptomatic hypothyroidism that led to further clinical decline. Was on hydrocortisone and levothyroxine Given the overall clinical picture and poor prognosis patient was transitioned to comfort care as per family request. Palliative medicine was consulted. Transitioned to comfort care on 08/12/20 Acute hypoxic/hypercapnic respiratory failure Mixed acid-base balance disorder Myxedema coma Adrenal insufficient Acute renal failure Acute diastolic heart failure Candidal sepsis - resolved (2) Postoperative ileus: (3) Fungemia: (4) Diastolic CHF, chronic: (5) Bradycardia: (6) COPD (chronic obstructive pulmonary disease): (7) Obesity hypoventilation syndrome: (8) Anemia: (9) Post-operative state: (10) DVT prophylaxis: Continue comfort measures only Roxanol scheduled now +prn Palliative on board Admission and Anticipated Discharge Date Admission Date: July 07, 2020 Physical Exam Constitutional: no acute distress ENMT: external ear and nose normal, oropharynx normal Respiratory: no respiratory distress and no labored breathing Shallow respiration Cardiovascular: Rate/Rhythm: regular rate and regular rhythm S1 S2 Gastrointestinal (Abdomen): normal bowel sounds, soft, nontender, no hepatosplenomegaly Musculoskeletal: Leg edema with some mottling Neurologic: + obtunded Genitourinary: Ibanez in situ (no urine output)
--- NOTE | 2020-08-17 13:41 | Palliative Care Progress Note ---
Date of Service August 17, 2020 Assessment & Plan (1) Palliative care encounter: Lorenzo ceased breathing at 1313 per family. He was comfortable and they were all at bedside with him. They are grieving appropriately and supporting each other. They are relieved that he was able to peacefully. Support provided. Admission and Anticipated Discharge Date Admission Date: July 07, 2020 Subjective As I entered the room, family tells me that they think that Lorenzo has stopped breathing. He had been having agonal breaths and then stopped. His younger brother had just arrived to see him. Family was at bedside. Review of Systems Review of Systems: Palliative Performance Score 0 Physical Exam Constitutional: + edematous Respiratory: absent, no chest rise, no respirations with auscultation Cardiovascular: asystole Skin: pale with mottling PG Care Time/CCT Total # of Minutes Spent Total Time Spent with Patient: Total time spent is greater than 50% in coordination of care (as documented) at patient's floor/unit and/or counseling patient: Coding Level of Care Code 41992 Subseq Hosp Care Lvl 2 Diagnoses Palliative care encounter Z51.5
--- NOTE | 2020-08-17 13:55 | Death Pronouncement Note ---
Date of Service August 17, 2020 Pronouncement Note Admission Date Admission Date: July 07, 2020 Called by RN that patient stopped breathing I came and examined patient. He was not alert. No breathing movement noted Pulses were not palpable Heart sounds and breath sounds were absent Pupils were fixed and dilated Patient pronounced Time of 1:49PM 08/17/20 Family were at bedside Support provided Contributing Factors (1) Palliative care encounter: Additional Data Attending physician: Radha Bejarano MD
--- NOTE | 2020-08-17 14:11 | Discharge Summary ---
Date of Service August 17, 2020 Admission HPI Per Admitting Provider 79-year old white male approximately 9 days status post open sigmoidectomy for sigmoid volvulus. He was discharged this past Tuesday. Patient was intubated by the emergency room physician. History as per the emergency room physician and patient's daughter at bedside. He was doing reasonably well until today. He began of increasing abdominal pain. He did eat today and also had a bowel movement earlier today. Following eating he began to become lethargic. Shortly after EMS arrived he became less responsive. Upon arrival at the emergency room he was hypotensive and unable to answer questions. Chest x-ray in the emergency room shows massive free air under both diaphragms. His white blood cell count is 20. Admission Exam Per Admitting Provider Constitutional: Patient unresponsive and intubated Eyes: PERRL, conjunctivae normal, anicteric sclerae EOM intact bilaterally ENMT: external ear and nose normal, oropharynx normal Ears: no hearing impairment Neck: trachea midline, no thyromegaly Respiratory: normal respiratory effort; no respiratory distress and does not use accessory muscles Cardiovascular: Rate/Rhythm: regular rate and regular rhythm Gastrointestinal (Abdomen): Obese. His previous incisions are well-healed with no dehiscence and no sign of infection or drainage. Gastrostomy tube in place. Skin: Several areas of skin breakdown and ecchymosis of the upper extremities. Principal Diagnosis Septic shock Perforated viscus Acute hypoxic/hypercapnic respiratory failure Mixed acid-base balance disorder Myxedema coma Adrenal insufficient Acute renal failure Acute diastolic heart failure Candidal sepsis Discharge Exam Discharge Data Allergies Allergy/AdvReac Type Severity Reaction Status Date / Time No Known Allergies Allergy Verified 07/06/20 21:30 Consultations 08/11/20 16:08 Consult Palliative Care Routine 08/12/20 13:18 Consult Palliative Care Routine Procedures Performed Operation Date: 07/06/20 23:00 Actual Procedures p Exploratory Laparotomy, Repair of Gastrostomy, Replacement of Gastrostomy. Tube, and Abdominal Washout. (Not Applicable) - Shola Damon, Ordered Studies 07/28/20 13:39 CT abd pelvis oral con only Urgent 07/30/20 01:28 CT head/brain wo con Urgent 08/05/20 21:25 CT abd pelvis wo con Urgent CT chest diagnostic wo con Urgent CT head/brain wo con Urgent 08/10/20 16:19 CT chest diagnostic wo con Urgent CT head/brain wo con Urgent Hospital Course (1) Septic shock: (1) Septic shock: Altered mental status; possibly metabolic encephalopathy - resolved, today Ox3 Septic shock on admission - resolved Perforated viscus/peritonitis, fungemia/dislodged G-tube on admission 1) Recurrent sigmoid volvulus with exp laparotomy, sigmoidectomy and gastrostomy S/P 2 decompressive colonoscopies with sigmoidectomy and/G-tube placement 06/26/20 2) Readmission on 07/07/2020 with unresponsiveness, abdominal pain, severe pain. X-ray on admission showed large amount of free air under diaphragm-dislodged G- tube causing peritonitis 07/07/2020 :S/P Exp Laparotomy /replacement of G-tube with large inflated balloon covering the pylorus to prevent dislodgment; extubated on 07/14/20 History of chronic diastolic heart failure History of COPD History of hypertension History of hypothyroid History of gout History of Sleep apnea Patient is 79-year-old male with above comorbidities presented with bowel perforation. Patient has had complicated clinical course over the past 2 months. Was initially hospitalized from 06/13/2020 to 07/04/2020. During that time he presented with abdominal pain and distention. Was found to have colonic dilatation. Required multiple decompressive colonoscopies and surgery with ex lap and resection of descending sigmoid colon, partial rectal resection and gastrostomy on 06/26/2020. Required TPN for time and then changed to low fiber diet prior to discharge on 07/04/2020 Patient presented again to the hospital on 07/07/2020 with unresponsiveness, severe abdominal pain. Had exploratory laparotomy in the setting of free intraperitoneal air with replacement of gastric tube, repair of gastrostomy and abdominal washout. Was managed in the ICU required mechanical ventilation and pressors for septic shock/fungemia. Blood culture on 07/07/20 grew franko. Was evaluated by ID. Completed 14 days of caspofungin On 08/05 code nathan was called due to patient being lethargic and hypoxic. CT head was obtained which did not reveal any acute findings. CT abdomen/pelvis was obtained which did not reveal any new findings. CT chest was obtained which revealed concern for possible consolidative opacities at dependent portions of bilateral lower lobes is not significantly changed since prior study performed more than 6 weeks ago which might represent atelectasis or pneumonia. There was concern for possible aspiration episode. Patinet was made NPO. Nutrition was on board. Was started for possible aspiration pneumonia. Blood cultures were obtained. 08/09 patient was found to have adrenal insufficiency and symptomatic hypothyr oidism that led to further clinical decline. Was on hydrocortisone and levothyroxine Given the overall clinical picture and poor prognosis patient was transitioned to comfort care as per family request. Palliative medicine was consulted. Transitioned to comfort care on 08/12/20 Patient on 08/17/20, pronounced at 1:49PM Other diagnoses managed during his prolonged hospital stay include: Acute hypoxic/hypercapnic respiratory failure Mixed acid-base balance disorder Myxedema coma Adrenal insufficient Acute renal failure Acute diastolic heart failure Candidal sepsis - resolved (2) Postoperative ileus: (3) Fungemia: (4) Diastolic CHF, chronic: (5) Bradycardia: (6) COPD (chronic obstructive pulmonary disease): (7) Obesity hypoventilation syndrome: (8) Anemia: (9) Post-operative state: Total Time Total Time Spent Total Time Spent (In Minutes): 35 Total Time Includes: Examination of the Patient and Discharge Planning Discharge Plan Discharge Items Patient Disposition: Discharge Diagnosis: Septic shock Perforated bowel Comfort care
--- NOTE | 2020-09-02 06:09 | Coding Query ---
CODING QUERY To promote full compliance with coding requirements relating to patient care, provider participation is requested in all cases of rehanger uncertainty. Please assist us with the question(s) below: Coding Question(s): Please document the cause of . Thank you . Ihsan Hackett [facility] Physician's Response(s): Septic Shock Principal Diagnosis: "that condition established after study, to be chiefly responsible for occasioning the admission of the patient to the hospital for care." Co-Existing Principal Diagnosis: "when two or more diagnoses equally meet the criteria for principal diagnosis as determined by the circumstances of admission, diagnostic work up, and/or therapy provided, and the Alphabetic Index, Tabular List, or another coding guideline does not provide sequencing direction, any one of the diagnoses may be sequenced first." "When the physician has documented what appears to be a current diagnosis in the body of the record, but has not included the diagnosis in the final diagnostic statement, the physician should be asked whether the diagnosis should be added." (Source Coding [facility] 2 QTR90. p3-4) HUSAM
== END 2020-08-17 17:09 | disposition expired | DRG 907 ==
LOC: ED 20:59 → OR 23:15 → 1E 07-07 01:44 → SUATTDRO 07-07 02:29 → 2S 07-17 16:21 → 2N 07-19 08:03 → 2W 07-30 19:40 → 2S 08-05 22:25 → 3E 08-12 13:13